=== PATIENT | male | born 1970 | race Caucasian/White ===

== ENCOUNTER 2020-06-24 12:58 | Outpatient (REF) | payer MEDICAID, SELFPAY | END 2020-06-24 12:59 | disposition home or self-care (01) | LOC: HO.HAP 12:58 | PROVIDERS: Visit Provider Internal Medicine | DX: Z76.89 Persons encountering health services in other specified circumstances (principal) ==

== ENCOUNTER 2020-12-04 22:44 | Emergency (ER) | payer MEDICAID, SELFPAY ==
--- NOTE | ~2020-12-04 | CT_ITS ---
EXAMINATION: CT HEAD WITHOUT CONTRAST CLINICAL INFORMATION: Fall. Intoxicated. COMPARISON: None TECHNIQUE: Contiguous axial imaging was performed from the skull base to vertex without intravenous administration of contrast. This CT examination was performed using dose optimization techniques as appropriate, variously including the following: *Automated exposure control *Adjustment of mA and/or kV according to patient size (this includes techniques or standardized protocols for targeted exams where dose is matched to indication/reason for exam; i.e. extremities or head) *Use of iterative reconstruction technique DLP: 754 mGy-cm FINDINGS: There is no evidence of acute intracranial hemorrhage or territorial infarction. No abnormal mass effect or midline shift is seen. Ku to white matter differentiation is well preserved. No extra-axial fluid collections are identified. The ventricles are normal in size. There is no abnormal attenuation within the brain parenchyma. The osseous structures and soft tissues are normal. The mastoid air cells and visualized portions of the paranasal sinuses are well aerated. CT/CT head/brain wo con IMPRESSION: No acute intracranial pathology.
--- NOTE | 2020-12-04 23:01 | ED_ITS ---
HPI - General Adult General Chief complaint: ETOH/Substance Use Stated complaint: ETOH Time Seen by Provider: 12/04/20 23:00 Source: patient and EMS Mode of arrival: EMS History of Present Illness HPI narrative: This is a 50-year-old male who is brought in by EMS after he was found unresponsive on the sidewalk but with minimal stimuli patient woke up and stood up will and ?smells like alcohol?. Patient states that he has had alcohol as well as heroin. Related Data Allergies Allergy/AdvReac Type Severity Reaction Status Date / Time No Known Allergies Allergy Unverified 06/10/20 15:11 [No Known Allergies*] Review of Systems Review of Systems: Pertinent positives and negatives as stated in HPI and 10 point review of systems is otherwise negative. PMFSH Past Medical History Source: nursing notes reviewed Social History Social History Advance Directives: No Advance Directives Information Provided: Yes Physical Exam Vital Signs: Vital Signs: Last Vital Signs Resp 14 12/05/20 04:00 BP 116/72 12/04/20 23:16 Body Mass Index 30.0 VITAL SIGNS: Reviewed. GENERAL: Well developed, well nourished, in no acute distress. HEAD: Normocephalic/small abrasion to mid forehead without overlying contusion EYES: PERRLA, EOMI OROPHARYNX: no oral lesions noted, posterior pharynx clear NECK: Supple, no adenopathy LUNGS: Normal breath sounds. No adventitious sounds or accessory muscle use. SpO2<> CARDIOVASCULAR: Regular rate and rhythm without noted murmurs ABDOMEN: Soft, non-tender, non-distended with bowel sounds. LEFT KNEE: Abrasion to left knee NEUROLOGIC: Alert and oriented x 4. Gait instability noted on clinical exam but otherwise nonfocal Course Course Course Narrative: This is a 50-year-old male with history and clinical presentation consistent with substance use that would include alcohol but no pinpoint noted on pupillary exam. Patient is clinically intoxicated and will obtain CT of the head given evidence of fall. On review of prior documentation at our facility patient has been seen for intoxication previously as well as SI in 2018. Of note, patient is not endorsing any suicidal or homicidal ideations at this time. On re-evaluation and review of all investigations there are no acute findings and patient is observed to have a steady gait and is ready for discharge. Medical Decision Making Lab Data Result diagrams: 12/05/20 00:07 12/05/20 00:07 Labs: Lab Results 12/05/20 12/05/20 12/05/20 Range/Units 00:07 00:07 00:07 WBC 9.2 (4.8-10.8) X10*3/uL RBC 4.48 L (4.60-5.80) X10*6/uL Hgb 14.8 (14.0-18.0) g/dl Hct 44.3 (42-52) % MCV 98.9 H (80-98) fL MCH 33.0 (27.0-33.0) pg MCHC 33.4 (31.0-36.0) g/dl RDW 14.2 (11.0-16.0) % Plt Count 251 (160-400) X10*3/uL MPV 8.7 L (9.4-12.4) fL Immature Gran % (Auto) 1.1 H (0.0-0.4) % Neut % (Auto) 79.1 H (45-73) % Lymph % (Auto) 14.4 L (20-40) % [place] % (Auto) 4.8 (2-11) % Eos % (Auto) 0.3 (0-4) % Baso % (Auto) 0.3 (0-2) % Lymph # (Auto) 1.3 (1.2-4.9) X10*3/uL [place] # (Auto) 0.4 (0.1-1.2) X10*3/uL Eos # (Auto) 0.0 (0.0-0.4) X10*3/uL Baso # (Auto) 0.0 (0.0-0.2) X10*3/uL Abs Immat Gran (auto) 0.10 H (0.00-0.03) X10*3/uL Absolute Neuts (auto) 7.2 (2.0-8.3) X10*3/uL Absolute Nucleated RBC 0.000 (0.0-0.012) X10*3/uL Nucleated RBC % (auto) 0.0 (0.0-0.2) /100WBC Sodium 140 (135-145) mmol/L Potassium 4.5 (3.3-5.1) mmol/L Chloride 105 (96-108) mmol/L Carbon Dioxide 27 (22-29) mmol/L Anion Gap 13 (12-20) BUN 10 (9-16) mg/dL Creatinine 0.88 (0.5-1.4) mg/dL Estim Creat Clear Calc 93.4 Estimated GFR > 60 Random Glucose 84 (60-115) mg/dL Calcium 8.6 (8.4-10.2) mg/dL Total Bilirubin 0.6 (0.0-1.0) mg/dL AST 19 (5-37) U/L ALT 19 (0-40) U/L Alkaline Phosphatase 71 (39-117) U/L Total Protein 7.6 (6.5-8.0) g/dL Albumin 4.3 (3.5-5.0) g/dL Urine Opiates Screen (Not Detect) Ur Barbiturates Screen (Not Detect) Ur Phencyclidine Scrn (Not Detect) Ur Amphetamines Screen (Not Detect) U Benzodiazepines Scrn (Not Detect) Urine Cocaine Screen (Not Detect) U Marijuana (THC) Screen (Not Detect) Ethyl Alcohol 71 mg/dL 12/05/20 Range/Units 00:07 WBC (4.8-10.8) X10*3/uL RBC (4.60-5.80) X10*6/uL Hgb (14.0-18.0) g/dl Hct (42-52) % MCV (80-98) fL MCH (27.0-33.0) pg MCHC (31.0-36.0) g/dl RDW (11.0-16.0) % Plt Count (160-400) X10*3/uL MPV (9.4-12.4) fL Immature Gran % (Auto) (0.0-0.4) % Neut % (Auto) (45-73) % Lymph % (Auto) (20-40) % [place] % (Auto) (2-11) % Eos % (Auto) (0-4) % Baso % (Auto) (0-2) % Lymph # (Auto) (1.2-4.9) X10*3/uL [place] # (Auto) (0.1-1.2) X10*3/uL Eos # (Auto) (0.0-0.4) X10*3/uL Baso # (Auto) (0.0-0.2) X10*3/uL Abs Immat Gran (auto) (0.00-0.03) X10*3/uL Absolute Neuts (auto) (2.0-8.3) X10*3/uL Absolute Nucleated RBC (0.0-0.012) X10*3/uL Nucleated RBC % (auto) (0.0-0.2) /100WBC Sodium (135-145) mmol/L Potassium (3.3-5.1) mmol/L Chloride (96-108) mmol/L Carbon Dioxide (22-29) mmol/L Anion Gap (12-20) BUN (9-16) mg/dL Creatinine (0.5-1.4) mg/dL Estim Creat Clear Calc Estimated GFR Random Glucose (60-115) mg/dL Calcium (8.4-10.2) mg/dL Total Bilirubin (0.0-1.0) mg/dL AST (5-37) U/L ALT (0-40) U/L Alkaline Phosphatase (39-117) U/L Total Protein (6.5-8.0) g/dL Albumin (3.5-5.0) g/dL Urine Opiates Screen Not Detected (Not Detect) Ur Barbiturates Screen Not Detected (Not Detect) Ur Phencyclidine Scrn Not Detected (Not Detect) Ur Amphetamines Screen Not Detected (Not Detect) U Benzodiazepines Scrn Not Detected (Not Detect) Urine Cocaine Screen POSITIVE H (Not Detect) U Marijuana (THC) Screen POSITIVE H (Not Detect) Ethyl Alcohol mg/dL Discharge Plan Discharge Clinical Impression: Substance use Alcoholic intoxication Qualifiers: Complication of substance-induced condition: uncomplicated Qualified Code(s): F10.920 - Alcohol use, unspecified with intoxication, uncomplicated Patient Disposition: Home, Self-Care Instructions: Alcohol Intoxication (ED), Polysubstance Abuse (ED) Additional Instructions: Do not hesitate to return to the emergency department for any acute worsening of your symptoms. Referrals: Physician,Unknown [Primary Care Provider] - 2 days
[2020-12-04 23:16] VITALS: BP 116/72; RESP 16
--- NOTE | 2020-12-04 23:55 | PC.NURSE ---
PT UNSTEADY ON FEET, WILL NOT STAY IN BED. PT INITIALLY COULDN'T REMEMBER HIS LAST NAME. PT CAME IN WITH NO ID, WALLET OR KEYS. PT REPORST HE HAS BEEN USING HEROIN AND COCAINE FOR PAST 2 DAYS. ALSO ADMITS TO ALCOHOL. PT HAS A SMALL ABRASION UPPER MID FOREHEAD. PT HAS NO MEMORY OF FALLING. EMS REPORTS THAT PAT WAS FOUND UNRESPONSIVE ON SIDEWALK, WOKE TO STERNAL RUB.
--- NOTE | 2020-12-05 00:09 | PC.NURSE ---
pt placed in recliner and moved next to room with sitter, directly in view of sitter. needing frequent redirection to stay in chair. unsteady on feet. believes he overdosed on Sunday in his appt and has been in the ED since Sunday.
[2020-12-05 00:15] LABS: MANUAL DIFF FLAG NO
[2020-12-05 00:16] LABS: Basophils Percent Auto 0.3 % (0-2); Eosinophils Percent Auto 0.3 % (0-4); Hematocrit 44.3 % (42-52); Hemoglobin 14.8 g/dl (14.0-18.0); Imm Gran Pct Auto 1.1 % (0.0-0.4); Lymphocytes Absolute Auto 1.3 X10*3/uL (1.2-4.9); Lymphocytes Percent Auto 14.4 % (20-40); Mean Corpuscular HGB Conc 33.4 g/dl (31.0-36.0); Mean Corpuscular Volume 98.9 fL (80-98); Mean Platelet Volume 8.7 fL (9.4-12.4); Monocytes Absolute Auto 0.4 X10*3/uL (0.1-1.2); Monocytes Percent Auto 4.8 % (2-11); Neutrophils Absolute Auto 7.2 X10*3/uL (2.0-8.3); Neutrophils Percent Auto 79.1 % (45-73); Platelet Count 251 X10*3/uL (160-400); Red Blood Count 4.48 X10*6/uL (4.60-5.80); Red Cell Distribution Width 14.2 % (11.0-16.0); White Blood Count 9.2 X10*3/uL (4.8-10.8)
[2020-12-05 00:43] LABS: Ethanol 71 mg/dL
[2020-12-05 00:46] LABS: Amphetamine Screen Urine Not Detected (Not Detect); Barbiturates, Urine Not Detected (Not Detect); Benzodiazepines Screen Urine Not Detected (Not Detect); Cannabinoid Screen Urine POSITIVE (Not Detect); Cocaine Screen Urine POSITIVE (Not Detect); Opiate Screen Urine Not Detected (Not Detect); Phencyclidine Screen Urine Not Detected (Not Detect)
[2020-12-05 00:47] LABS: Alanine Aminotransferase 19 U/L (0-40); Albumin Level 4.3 g/dL (3.5-5.0); Alkaline Phosphatase 71 U/L (39-117); Anion Gap 13 (12-20); Aspartate Amino Transferase 19 U/L (5-37); Bilirubin Total 0.6 mg/dL (0.0-1.0); Blood Urea Nitrogen 10 mg/dL (9-16); Calcium 8.6 mg/dL (8.4-10.2); Carbon Dioxide 27 mmol/L (22-29); Chloride 105 mmol/L (96-108); Creatinine Clr Calc Pharmacy 93.4; Estimated Glomerular Filt Rate > 60; Glucose Random 84 mg/dL (60-115); Potassium 4.5 mmol/L (3.3-5.1); Sodium 140 mmol/L (135-145); Total Protein 7.6 g/dL (6.5-8.0)
[2020-12-05 03:00] VITALS: RESP 16
[2020-12-05 04:00] VITALS: RESP 14
== END 2020-12-05 06:28 | disposition home or self-care (01) ==
PROVIDERS: Emergency Provider Student in an Organized Health Care Education/Training Program
DX: F10.129 Alcohol abuse with intoxication, unspecified (principal); F11.10 Opioid abuse, uncomplicated; Y90.3 Blood alcohol level of 60-79 mg/100 ml; Z71.41 Alcohol abuse counseling and surveillance of alcoholic
CPT/HCPCS: 36415; 70450; 80053; 80307; 80320; 85025; 99284

== ENCOUNTER 2020-12-15 16:49 | Emergency (ER) | payer MEDICAID, SELFPAY ==
[2020-12-15 17:03] VITALS: PULSE 86; RESP 18; TEMP 36.9; O2SAT 93; BMI 27.6
--- NOTE | 2020-12-15 17:30 | ED.GENADULT ---
HPI - General Adult General Chief complaint: Altered Mental Status Stated complaint: OVERDOSE Time Seen by Provider: 12/15/20 17:16 Source: patient Mode of arrival: EMS Limitations: no limitations History of Present Illness HPI narrative: Patient overdosed on heroine. States he shot up around 3:30. Patient was pulled over by police for being intoxicated. Onset (ago): hour(s) Severity: moderate Relieving factors: none Exacerbating factors: none Associated symptoms: denies other symptoms Related Data Allergies Allergy/AdvReac Type Severity Reaction Status Date / Time No Known Allergies Allergy Unverified 06/10/20 15:11 [No Known Allergies*] Review of Systems Constitutional: Constitutional: Reports no additional constitutional complaints Eyes: Eyes: Reports no additional eye complaints ENT: Denies dizziness Cardiovascular: Cardiovascular: Reports no additional cardiovascular complaints Respiratory: Respiratory: Reports as per HPI Gastrointestinal: Gastrointestinal: Reports no additional gastrointestinal complaints Musculoskeletal: Musculoskeletal: Reports no additional musculoskeletal complaints Integumentary/Breasts: Skin/Breast: Denies rash Neurologic: Reports system reviewed and no additional complaints, except as documented, Denies dizziness and Denies Sensory deficit (Neuro) Psychiatric: Psychiatric: Denies anxiety [facility] Past Medical History Medical History HTN (hypertension) Social History Social History Alcohol intake: unknown Smoking Status: Current every day smoker Use of substances other than those prescribed or required for medical reasons: Unknown Advance Directives: No Advance Directives Information Provided: Yes Physical Exam Vital Signs: Vital Signs: Last Vital Signs Temp 98.4 F 12/15/20 17:03 Pulse 86 12/15/20 17:03 Resp 18 12/15/20 17:03 Pulse Ox 93 12/15/20 17:03 Body Mass Index 27.6 Const: Other: Male looking older than stated than age, awake and alert Nutritional Appearance: average body habitus Orientation/consciousness: oriented to person and patient oriented x3 Limitations: no limitations HENMT: Head: Yes normal to inspection Ears: external ears normal General nose exam: Normal external nose present Mouth: Normal oral and palatal mucosa present and oropharynx normal Throat: Yes posterior oropharynx normal Eyes: General: appearance normal, both eyes and all related structures Neck: Other: supple Neck: Yes normal visual inspection Chest: Chest palpation & inspection: normal inspection of the chest Resp: Auscultation: clear to auscultation bilaterally Cardio: Jugular venous distension: no JVD Rate: regular rate Rhythm: regular rhythm Heart sounds: S1 normal heart sound present and S2 normal heart sound present GI: Inspection: Yes normal to inspection Palpation (GI): Soft to palpation, nontender and No hepatosplenomegaly present Auscultation: normal bowel sounds : General: Yes no CVA tenderness Back/Spine/Pelvis: Back: no CVA tenderness Skin: General skin exam: no rashes or lesions noted Neuro: General: oriented to person and patient oriented x3 Cranial nerves: Yes CN's II-XII intact bilaterally Motor exam (neuro): 5/5 motor strength present throughout Sensory Exam: No Sensory deficit (Neuro) Extrem: General: Yes normal to inspection Psych: Appearance: grossly normal Course Course Course Narrative: patient found a sober ride, looks good Medical Decision Making MDM Narrative Medical decision making narrative: Heroine intoxication, not requiring narcan Discharge Plan Discharge Clinical Impression: Heroin abuse Altered mental status Qualifiers: Altered mental status type: stupor Qualified Code(s): R40.1 - Stupor Patient Disposition: Home, Self-Care Instructions: Narcotic Use Disorder (ED) Additional Instructions: no driving Referrals: [facility] [Primary Care Provider] - 2 days
--- NOTE | 2020-12-15 18:10 | MHC.RECOVSUP ---
? Reason for consult Support o Current location: ED22[facility] o Identified substance use concern: Heroin - Support ? Intervention: o Community resources provided o Harm reduction discussion ? Plan: o Referral to [facility] o Patient to follow up with [facility] after discharge ? Additional information: Patient refused services But did that resources for [facility]. we also spoke about MAT and was given the information for the [facility] and [facility].
== END 2020-12-15 18:34 | disposition home or self-care (01) ==
PROVIDERS: Emergency Provider Emergency Medicine
DX: F11.120 Opioid abuse with intoxication, uncomplicated (principal); R40.1 Stupor; I10 Essential (primary) hypertension; F17.200 Nicotine dependence, unspecified, uncomplicated
CPT/HCPCS: 99283; 99284

== ENCOUNTER 2021-07-22 15:08 | Emergency (ER) | payer MEDICAID, SELFPAY ==
--- NOTE | ~2021-07-22 | XR_ITS ---
EXAMINATION: XR LUMBOSACRAL SPINE CLINICAL INFORMATION: Pain COMPARISON: None TECHNIQUE: Three views of the lumbosacral spine. FINDINGS: There is mild 2 mm anterior subluxation of L4 with respect L5. There is curvature of the lower thoracic and upper lumbar spine to the right. Bone alignment is otherwise normal. There is multilevel degenerative spondylosis. Disc spaces are normal. There is lower lumbar spine facet arthritis. XR/XR lumbar spine 2-3V IMPRESSION: Degenerative changes. No fracture seen.
[2021-07-22 15:21] VITALS: BP 120/70; BP 138/88; PULSE 70; PULSE 72; RESP 16; TEMP 37.2; O2SAT 96; O2SAT 97; BMI 26.6
--- NOTE | 2021-07-22 17:10 | ED.BACK ---
HPI - Back Pain/Injury General Chief Complaint: Back Pain/Injury Stated Complaint: lower back pain Time Seen by Provider: 07/22/21 16:15 History of Present Illness HPI Narrative: Patient complains of right-sided back pain radiating to the gluteal area and thigh, it may have happened from lifting at work, he went home 2 days ago with mild pain in his back and it has become more severe over the past several days and at home today he got a back spasm or he could not move and was brought here by ambulance, now the back spasm has improved he is able to move and walk and he denies any IV drug use, he has had no fevers he has had no changes to bowel or bladder he denies any weakness or numbness Related Data Home Medications Medication Instructions Recorded Confirmed buprenorphine 12 mg-naloxone 3 mg 1 strip SUBLINGUAL DAILY 07/28/21 07/28/21 sublingual film (Suboxone) prazosin 2 mg capsule 1 cap PO BID 07/28/21 07/28/21 trazodone 100 mg tablet 2 tab PO BEDTIME PRN 07/28/21 07/28/21 venlafaxine 150 mg 1 cap PO DAILY 07/28/21 07/28/21 capsule,extended release 24 hr venlafaxine 37.5 mg 1 cap PO DAILY 07/28/21 07/28/21 capsule,extended release 24 hr Previous Rx's Medication Instructions Recorded acetaminophen 500 mg tablet 1,000 mg PO QID PRN #30 tab 07/22/21 ibuprofen 600 mg tablet 600 mg PO Q6H PRN #20 tab 07/22/21 Allergies Allergy/AdvReac Type Severity Reaction Status Date / Time No Known Allergies Allergy Unverified 06/10/20 15:11 [No Known Allergies*] Review of Systems Review of Systems: Positive for right-sided back pain radiating to right leg Negatives are no fever no chills no dizziness no weakness no headache no neck pain no chest pain no abdominal pain no numbness weakness or tingling no changes to bowel or bladder no dysuria no incontinence Yes all other systems are reviewed and are negative PMFSH Past Medical History Source: nursing notes reviewed Medical History Anxiety Depression HTN (hypertension) Intravenous drug abuse in remission Social History Social History Household Members: Family Housing: House Alcohol intake: never Patient Tobacco Use Status: Current everyday Tobacco user Tobacco use type: Cigarette Substance Use Type: Marijuana service: No Current occupational status: unemployed Physical Exam Vital Signs: Vital Signs: Last Vital Signs Temp 99.0 F 07/22/21 15:21 Pulse 70 07/22/21 15:21 Resp 16 07/22/21 15:21 BP 120/70 07/22/21 15:21 Pulse Ox 97 07/22/21 15:21 Body Mass Index 26.6 General appearance no acute distress Head is normocephalic atraumatic Neck is supple Respiratory no distress Chest clear to auscultation bilateral Abdomen soft nontender Back had right-sided lower lumbar tenderness, skin was normal no rashes, no CVA tenderness no bony point tenderness Extremities full range of motion x4 Neuro no focal motor sensory deficits Course Course Course Narrative: Patient is treated for musculoskeletal back pain radiating to right leg and was discharged Discharge Plan Discharge Clinical Impression: Lumbar radiculopathy Patient Disposition: Home, Self-Care Additional Instructions: X-ray did not show any broken bone or acute abnormality Your pain is probably from a pinched nerve shooting pain down into leg We are trying prednisone which may reduce inflammation around the nerve, but if it increases anxiety you can stop taking it Follow with primary doctor Return any time for any worse condition or any concerns Prescriptions: New ibuprofen 600 mg tablet 600 mg PO Q6H PRN (Reason: pain) Qty: 20 RF: 0 acetaminophen 500 mg tablet 1,000 mg PO QID PRN (Reason: pain) Qty: 30 RF: 0 No Action venlafaxine 37.5 mg capsule,extended release 24hr 1 cap PO DAILY RF: 0 venlafaxine 150 mg capsule,extended release 24hr 1 cap PO DAILY RF: 0 trazodone 100 mg tablet 2 tab PO BEDTIME PRN (Reason: Insomnia) RF: 0 prazosin 2 mg capsule 1 cap PO BID RF: 0 buprenorphine-naloxone [Suboxone] 12-3 mg film 1 strip sublingual DAILY RF: 0 Stand Alone Forms: Work/School Release Interventions: ED Discharge Assessment Last Done: 07/22/21 18:29 Discharge Date/Time: 07/22/21 18:35
[2021-07-22] MEDS: predniSONE 20 MG TABLET 60 MG PO (17:28)
[2021-07-22] MEDS: Acetaminophen 325 MG TABLET 975 MG PO (17:28)
[2021-07-22] MEDS: Ketorolac Tromethamine 15 MG/ML VIAL 30 MG IM (17:29)
[2021-07-22] MEDS: Lidocaine 4 % Patch ADH..PATCH 1 PATCH TRANSDERMA (17:29)
== END 2021-07-22 18:35 | disposition home or self-care (01) ==
PROVIDERS: Emergency Provider Emergency Medicine
DX: M54.16 Radiculopathy, lumbar region (principal); I10 Essential (primary) hypertension
CPT/HCPCS: 72100; 96372; 99284; J1885

== ENCOUNTER 2021-07-26 09:07 | Emergency (ER) | payer MEDICAID, SELFPAY ==
--- NOTE | ~2021-07-26 | CT_ITS ---
EXAMINATION: CT THORACIC SPINE CLINICAL INFORMATION: Back pain. History of IV drug use. COMPARISON: None TECHNIQUE: Axial images through the thoracic spine with and without IV contrast. Sagittal and coronal sections on the technologist workstation were performed. This CT examination was performed using dose optimization techniques as appropriate, variously including the following: *Automated exposure control *Adjustment of mA and/or kV according to patient size (this includes techniques or standardized protocols for targeted exams where dose is matched to indication/reason for exam; i.e. extremities or head) *Use of iterative reconstruction technique DLP: 486 mGy-cm FINDINGS: Bone alignment is normal. No fracture, dislocation or x-ray evidence of osteomyelitis is seen. There is multilevel degenerative disc disease and degenerative spondylosis. There are probable Schmorl's nodes in the inferior endplate of the T6 and T9 vertebral body. No endplate erosive changes to suggest discitis seen. No paraspinal soft tissue changes suggest paraspinal abscess or phlegmon. No abnormality in the spinal canal is seen. There is degenerative spondylosis and degenerative disc disease at C6-C7 and C7-T1. The heart is enlarged. There is no pericardial effusion. There are no enlarged hilar or mediastinal nodes. The lungs are clear. There is no pleural effusion. The liver may be enlarged. CT/CT thoracic spine w con IMPRESSION: No evidence of discitis, osteomyelitis or paraspinal abscess/phlegmon. Multilevel degenerative spondylosis and degenerative disc disease of the thoracic spine.
--- NOTE | ~2021-07-26 | CT_ITS ---
EXAMINATION: CT LUMBAR SPINE CLINICAL INFORMATION: History of intravenous drug use with low back pain and elevated WBC. COMPARISON: No similar priors. TECHNIQUE: Multiple images of the lumbar spine following the intravenous administration of 65 mL of Omnipaque 350 were obtained. Axial, coronal and sagittal reformats were obtained. This CT examination was performed using dose optimization techniques as appropriate, variously including the following: *Automated exposure control *Adjustment of mA and/or kV according to patient size (this includes techniques or standardized protocols for targeted exams where dose is matched to indication/reason for exam; i.e. extremities or head) *Use of iterative reconstruction technique DLP: 388 mGy-cm FINDINGS: No evidence of acute compression deformities. There is subtle 2 to 3 mm of retrolisthesis of L2 on L3, which is likely degenerative in nature. Otherwise, anatomic alignment is maintained. There is multilevel lumbar spondylosis, more prominent at manifested by disc space narrowing, subchondral sclerosis/cystic changes, vacuum disc phenomena, prominent Schmorl's nodules and osteophytes. Endplate irregularities at T12-L1 and L2-L3 have associated vacuum disc phenomena and subchondral gas, which favors a degenerative nature from over infection. At L1-L2 there is also disc space irregularity which in the absence of surrounding inflammatory changes or edema also favored to represent degenerative changes. There is advanced facet arthropathy at L4-L5 and L5-S1, greater on the right side without discrete collections or free fluid surrounding them. There are no drainable collections or abscess formation. The CBD is mildly prominent measuring up to 8 mm of uncertain etiology. CT/CT lumbar spine w con IMPRESSION: No definite evidence of discitis or osteomyelitis. As above, some irregularity within a few endplates and facet joints are in favor to be degenerative in nature in the presence of vacuum disc phenomena and in the absence of paraspinal inflammatory changes. If concerning for infection persist, further evaluation with an MR of lumbar spine could be helpful. No drainable collections or abscess formation. Indeterminate dilatation of the CBD. If clinically indicated, consider further evaluation with MRCP.
[2021-07-26 09:16] VITALS: BP 160/100; BP 162/94; PULSE 70; RESP 16; TEMP 36.8; O2SAT 100; O2SAT 98; BMI 27.4
--- NOTE | 2021-07-26 09:41 | ED_ITS ---
HPI - Back Pain/Injury General Chief Complaint: Back Pain/Injury Stated Complaint: BACK PAIN,SEEN FOR SAME RECENTLY Time Seen by Provider: 07/26/21 09:24 Source: patient Mode of arrival: EMS Limitations: no limitations History of Present Illness HPI Narrative: 50-year-old male who presents emergency department for evaluation of severe mid to lower back pain. The patient states that approximately 1 week prior he developed back pain. 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 He was seen in the emergency department on 07/22/2021 (4 days prior) for 2 days right lower abdominal pain with the pain radiating to his right gluteal area and right thigh. At that time he was brought to the emergency department and was having back spasms. The patient had lumbar x-rays which revealed no acute finding. Patient was started on prednisone 40 mg once a day for 4 days, ibuprofen 600 mg every 6 hours as needed for pain, acetaminophen 1000 mg 4 times a day, cyclobenzaprine 5 mg 3 times a day and lidocaine 4% patches. Patient states that his pain is a sharp, constant pain that has been waxing and waning intensity. He states that his pain is currently 10/10. He is also complaining of severe spasm in his lower back. He states the pain radiates down his right leg to his right foot. He denies any numbness of the right leg but he states that his right leg does feel weak compared to his left. He denies loss of bowel or bladder control. He denied fever or chills. Patient does have a past medical history of heroin use but he states that he has not used injection drugs in several months. Related Data Previous Rx's Medication Instructions Recorded acetaminophen 500 mg tablet 1,000 mg PO QID PRN #30 tab 07/22/21 cyclobenzaprine 5 mg tablet 5 mg PO TID PRN #20 tab 07/22/21 ibuprofen 600 mg tablet 600 mg PO Q6H PRN #20 tab 07/22/21 lidocaine 4 % topical patch 1 patch TOPICAL DAILY PRN #10 ea 07/22/21 prednisone 20 mg tablet 60 mg PO DAILY 4 Days #12 tab 07/22/21 morphine 15 mg immediate release 15 mg PO Q4-6H PRN #10 tab 07/26/21 tablet Allergies Allergy/AdvReac Type Severity Reaction Status Date / Time No Known Allergies Allergy Unverified 06/10/20 15:11 [No Known Allergies*] Review of Systems Review of Systems: Yes all other systems are reviewed and are negative [facility] Past Medical History [facility] Narrative: Past medical history: Depression, insomnia, injection heroin use in remission. Social history: The patient does smoke cigarettes. He denies alcohol use. He states that he does smoke marijuana, he states that he has a history of injection heroin use but is in remission. Medical History Anxiety Depression HTN (hypertension) Intravenous drug abuse in remission Social History Social History Alcohol intake: unknown Advance Directives: No Advance Directives Information Provided: No Physical Exam Vital Signs: Vital Signs: Last Vital Signs Temp 99.1 F 07/26/21 12:36 Pulse 71 07/26/21 15:38 Resp 16 07/26/21 15:38 BP 150/93 H 07/26/21 15:38 Pulse Ox 97 07/26/21 15:38 Body Mass Index 27.4 Const: Other: Male patient who appears to be in significant distress secondary to his pain, the patient is diaphoretic, he seems to have episodes of severe spasm in his lower back, he answers all questions appropriately. HENMT: Head: Yes normal to inspection, Yes normocephalic and Yes atraumatic Ears: external ears normal General nose exam: Normal external nose present Face and sinus: Yes normal facial exam Mouth: Normal oral and palatal mucosa present Throat: Yes posterior oropharynx normal Eyes: General: appearance normal, both eyes and all related structures Pupils: Equal, round and reactive pupils present Neck: Neck: Yes normal visual inspection, Yes no lymphadenopathy, Yes trachea midline and Yes supple Chest: Chest palpation & inspection: normal inspection of the chest and normal palpation of entire chest wall Resp: Effort & Inspection: normal respiratory effort and able to speak in complete sentences Auscultation: clear to auscultation bilaterally Cardio: Rate: regular rate Rhythm: regular rhythm Heart sounds: S1 normal heart sound present, S2 normal heart sound present and no murmurs GI: Inspection: Yes normal to inspection Palpation (GI): Soft to palpation, nontender and no guarding Auscultation: normal bowel sounds Back/Spine/Pelvis: Other: The patient has localized tenderness over the right SI joint, he also has localized tenderness over the L3 through L5 lumbar vertebrae, he also has diffuse tenderness to palpation of his thoracic vertebrae. He paraspinal muscle spasm in the thoracic , lumbar and sacral area with the right side being greater than the left, he has negative straight leg raise sign bilaterally, he has normal strength in his lower extremities and they are symmetric, he has normal light touch bilaterally. Skin: General skin exam: no rashes or lesions noted Neuro: Cranial nerves: Yes CN's II-XII intact bilaterally and Yes Equal, round and reactive pupils present Cognition (Neuro): normal cognition Motor exam (neuro): 5/5 motor strength present throughout Extrem: General: Yes normal to inspection Psych: Appearance: grossly normal Speech and movement: Normal speech and movement present Affect: normal affect Attitude: cooperative Thought process: Normal thought process present Thought content: Normal thought content present Course Course Course Narrative: 50-year-old male who presents emergency department for evaluation of approximately 7 days of right lower back pain secondary to unknown injury. He was seen in the emergency department on 07/22/2021 (4 days prior to arrival) with similar pain. On today's presentation he appears to be in significant distress secondary to his pain and spasm with his lower back muscles. On exam he does have localized tenderness with palpation of the right SI joint and the lumbar vertebrae and the lumbar sacral paraspinal muscles with spasm of these muscles. Patient had negative straight leg raises bilaterally and has normal strength normal sensory exam. Patient does have a history of injection drug use but states that he is in remission. I did order CBC, CMP, CRP and sedimentation rate on the patient. Patient was ordered to get Toradol 30 mg IV and morphine 4 mg IV for his pain. 1147: The patient only got minimal pain relief with IV Toradol and morphine. Patient was ordered to get Dilaudid 1 mg IV. Patient's WBC count was elevated 14,000 and CRP was elevated at 18.1. ESR is pending. Given the patient's history of injection drug use, concerned that he may have a paraspinal abscess as the cause of his pain. I did order a CT scan of the thoracic and lumbar spine with IV contrast. 1529: The patient got very minimal relief with IV Toradol and morphine. Patient was given Dilaudid 1 mg IV x2 with improvement of his pain. CT scan of the thoracic spine did not reveal any diskitis or paraspinal abscess or paraspinal abscess inflammatory changes. Patient does have disc disease as well as degenerative arthritis which most likely explains the patient's pain. I did discuss this with the patient. Unfortunately, I made an order error and I did not order the CT scan of the lumbar spine. I did discuss this with the covering radiologist and the patient will get a CT scan of the lumbar spine with IV contrast as well. The patient is aware of this error and I did tell him that we will continue to treat his pain while he is in the emergency department. 1600: I did a [employer] search on the patient and the patient is actually getting Suboxone 8 mg/2 mg weekly. The patient did not inform me that he was in a Suboxone program. At this point, I am going to hold off giving any more narcotic pain medications to the patient and we will wait for the result of his CT scan of the lumbar sacral spine before determining further management. 1652: At the end of my shift, the CT scan of the patient's lumbar spine with IV contrast is pending. The patient's care was turned over to my colleague, Dr. Phillips will make a disposition on this patient. MDM - Back Pain/Injury Lab Data Attestation: I reviewed the patient's lab results. Result diagrams: 07/26/21 10:34 07/26/21 10:34 Labs: Lab Results 07/26/21 07/26/21 07/26/21 Range/Units 10:34 10:34 10:34 WBC 14.0 H (4.8-10.8) X10*3/uL RBC 4.27 L (4.60-5.80) X10*6/uL Hgb 13.8 L (14.0-18.0) g/dl Hct 39.2 L (42.0-52.0) % MCV 91.8 (80.0-98.0) fL MCH 32.3 (27.0-33.0) pg MCHC 35.2 (31.0-36.0) g/dl RDW 12.9 (11.0-16.0) % Plt Count 247 (160-400) X10*3/uL MPV 8.5 L (9.4-12.4) fL Immature Gran % (Auto) 0.4 (0.0-0.4) % Neut % (Auto) 84.4 H (45-73) % Lymph % (Auto) 6.9 L (20-40) % Camp % (Auto) 8.2 (2-11) % Eos % (Auto) 0.0 (0-4) % Baso % (Auto) 0.1 (0-2) % Lymph # (Auto) 1.0 L (1.2-4.9) X10*3/uL Camp # (Auto) 1.2 (0.1-1.2) X10*3/uL Eos # (Auto) 0.0 (0.0-0.4) X10*3/uL Baso # (Auto) 0.0 (0.0-0.2) X10*3/uL Abs Immat Gran (auto) 0.05 H (0.00-0.03) X10*3/uL Absolute Neuts (auto) 11.79 H (2.0-8.3) x10*3/uL Absolute Nucleated RBC 0.000 (0.0-0.012) X10*3/uL Nucleated RBC % (auto) 0.0 (0.0-0.2) /100WBC ESR 73 H (0-15) MM/HR Sodium 135 (135-145) mmol/L Potassium 3.7 (3.3-5.1) mmol/L Chloride 98 (96-108) mmol/L Carbon Dioxide 29 (22-29) mmol/L Anion Gap 12 (12-20) BUN 8 L (9-16) mg/dL Creatinine 0.62 (0.5-1.4) mg/dL Estim Creat Clear Calc 136.2 Estimated GFR > 60 Random Glucose 126 H D (60-115) mg/dL Calcium 8.9 (8.4-10.2) mg/dL Total Bilirubin 0.8 (0.0-1.0) mg/dL AST 14 (5-37) U/L ALT 18 (0-40) U/L Alkaline Phosphatase 75 (39-117) U/L C-Reactive Protein 18.10 H (< or = 0.50) mg/dL Total Protein 7.3 (6.5-8.0) g/dL Albumin 3.8 (3.5-5.0) g/dL Imaging Data CT scan thoracic spine: Radiologist's impression: FINDINGS: Bone alignment is normal. No fracture, dislocation or x-ray evidence of osteomyelitis is seen. There is multilevel degenerative disc disease and degenerative spondylosis. There are probable Schmorl's nodes in the inferior endplate of the T6 and T9 vertebral body. No endplate erosive changes to suggest discitis seen. No paraspinal soft tissue changes suggest paraspinal abscess or phlegmon. No abnormality in the spinal canal is seen. There is degenerative spondylosis and degenerative disc disease at C6-C7 and C7-T1. The heart is enlarged. There is no pericardial effusion. There are no enlarged hilar or mediastinal nodes. The lungs are clear. There is no pleural effusion. The liver may be enlarged. IMPRESSION: No evidence of discitis, osteomyelitis or paraspinal abscess/phlegmon. Multilevel degenerative spondylosis and degenerative disc disease of the thoracic spine. ? Dictated By: Cyndie Walker MD Discharge Plan Discharge Clinical Impression: Thoracic back sprain Qualifiers: Encounter type: subsequent encounter Qualified Code(s): S23.9XXD - Sprain of unspecified parts of thorax, subsequent encounter Strain of lumbar region Qualifiers: Encounter type: subsequent encounter Qualified Code(s): S39.012D - Strain of muscle, fascia and tendon of lower back, subsequent encounter Patient Disposition: Home, Self-Care Instructions: Acute Low Back Pain (ED) Additional Instructions: Back Pain Discharge Instructions: Take ibuprofen 200 mg pills, 3 pills every 6 hours as needed for pain. Take Tylenol (acetaminophen) 500 mg pills, 2 pills every 4-6 hours as needed for pain. Apply ice for 15 minutes to the area that hurts on your back, then apply a heating a pad on low for 15 minutes. Do this 4-6 times a day to help reduce the pain in your back. Continue with normal activities as tolerated since staying in bed and not moving around will make your pain worse. You can also try over the counter lidocaine patches as directed on the box to help with the pain. Please return to the Emergency Department or see your doctor immediately if your symptoms get worse or if you develop any new symptoms that are concerning you. Follow up with your doctor in 2 day. Please read the other printed discharge instructions on back pain. Prescriptions: New morphine 15 mg tablet 15 mg PO Q4-6H PRN (Reason: pain) Qty: 10 RF: 0 No Action prednisone 20 mg tablet 60 mg PO DAILY 4 Days Qty: 12 RF: 0 ibuprofen 600 mg tablet 600 mg PO Q6H PRN (Reason: pain) Qty: 20 RF: 0 acetaminophen 500 mg tablet 1,000 mg PO QID PRN (Reason: pain) Qty: 30 RF: 0 cyclobenzaprine 5 mg tablet 5 mg PO TID PRN (Reason: muscle spasm) Qty: 20 RF: 0 lidocaine 4 % adhesive patch,medicated 1 patch topical DAILY PRN (Reason: pain) Qty: 10 RF: 0
[2021-07-26 09:59] VITALS: RESP 16
[2021-07-26] MEDS: Morphine Sulfate 4 MG/ML CARTRIDGE IVPUSH (09:59)
[2021-07-26] MEDS: Ketorolac Tromethamine 15 MG/ML VIAL 30 MG IVPUSH (10:08)
[2021-07-26 10:40] LABS: MANUAL DIFF FLAG NO
[2021-07-26 10:41] VITALS: BP 148/94; PULSE 72; RESP 16; O2SAT 97
[2021-07-26 10:47] LABS: Basophils Percent Auto 0.1 % (0-2); Hematocrit 39.2 % (42.0-52.0); Hemoglobin 13.8 g/dl (14.0-18.0); Imm Gran Abs Auto 0.05 X10*3/uL (0.00-0.03); Imm Gran Pct Auto 0.4 % (0.0-0.4); Lymphocytes Percent Auto 6.9 % (20-40); Mean Corpuscular HGB Conc 35.2 g/dl (31.0-36.0); Mean Corpuscular Hemoglobin 32.3 pg (27.0-33.0); Mean Corpuscular Volume 91.8 fL (80.0-98.0); Mean Platelet Volume 8.5 fL (9.4-12.4); Monocytes Absolute Auto 1.2 X10*3/uL (0.1-1.2); Monocytes Percent Auto 8.2 % (2-11); Neutrophils Absolute Auto 11.79 x10*3/uL (2.0-8.3); Neutrophils Percent Auto 84.4 % (45-73); Platelet Count 247 X10*3/uL (160-400); Red Blood Count 4.27 X10*6/uL (4.60-5.80); Red Cell Distribution Width 12.9 % (11.0-16.0)
[2021-07-26 11:06] LABS: Alanine Aminotransferase 18 U/L (0-40); Albumin Level 3.8 g/dL (3.5-5.0); Alkaline Phosphatase 75 U/L (39-117); Anion Gap 12 (12-20); Aspartate Amino Transferase 14 U/L (5-37); Bilirubin Total 0.8 mg/dL (0.0-1.0); Blood Urea Nitrogen 8 mg/dL (9-16); Calcium 8.9 mg/dL (8.4-10.2); Carbon Dioxide 29 mmol/L (22-29); Chloride 98 mmol/L (96-108); Creatinine Clr Calc Pharmacy 136.2; Estimated Glomerular Filt Rate > 60; Glucose Random 126 mg/dL (60-115); Potassium 3.7 mmol/L (3.3-5.1); Sodium 135 mmol/L (135-145); Total Protein 7.3 g/dL (6.5-8.0)
[2021-07-26 11:57] VITALS: RESP 16
[2021-07-26] MEDS: HYDROmorphone HCl 1 MG/ML SYRINGE IVPUSH ×2 (11:57→14:36)
[2021-07-26] MEDS: 0.9 % Sodium Chloride 1,000 ML 999 ML IV ×2 (12:02→16:11)
[2021-07-26 12:12] LABS: Erythrocyte Sedimentation Rate 73 MM/HR (0-15)
[2021-07-26 12:36] VITALS: BP 156/78; PULSE 68; RESP 16; TEMP 37.3; O2SAT 98
[2021-07-26] MEDS: iohexoL 350 MG/ML 100 ML INFUS..BTL IV ×2 (13:38→16:07)
[2021-07-26 15:38] VITALS: BP 150/93; PULSE 71; RESP 16; O2SAT 97
--- NOTE | 2021-07-26 18:17 | PC.NURSE ---
PT REFUSED TO STAY MRI BECAUSE MOM CANT DRIVE AT NIGHT STATES HE WILL BE BACK IN AM FOR MRI. PT WILL LEAVE AMA.
[2021-07-26 18:38] LABS: Lactic Acid 1.2 mmol/L (0.5-2.0)
== END 2021-07-26 18:26 | disposition left against medical advice (07) ==
PROVIDERS: Emergency Medicine Emergency Medical Services; Emergency Provider Internal Medicine
DX: M54.50 Low back pain, unspecified (principal); M54.6 Pain in thoracic spine; Z79.899 Other long term (current) drug therapy
CPT/HCPCS: 36415; 72129; 72132; 80053; 83605; 85025; 85652; 86140; 96361; 96374; 96375; 96376; 99284; J1170; J1885; J2270; Q9967

== ENCOUNTER 2021-07-27 11:06 | Inpatient (IN) | payer MEDICAID, SELFPAY ==
[2021-07-27] VITALS (7 sets, daily range): BP systolic 128–157; BP diastolic 85–98; PULSE 70–97; RESP 15–20; TEMP 36.1–38; O2SAT 96–99; BMI 24.3
--- NOTE | ~2021-07-27 | CT_ITS ---
EXAMINATION: CT ABDOMEN AND PELVIS WITH CONTRAST CLINICAL INFORMATION: Abdominal pain. Epidural abscess. COMPARISON: No similar prior imaging available for comparison. Lumbar MRI dated 07/27/2021 and was reviewed. TECHNIQUE: Multidetector volumetric images were obtained from the superior aspect of the liver through the pubic symphysis following administration 85 mL of Omnipaque 350 intravenous contrast. Sagittal and coronal reformatted images were obtained on the technologist's workstation. This CT examination was performed using dose optimization techniques as appropriate, variously including the following: *Automated exposure control *Adjustment of mA and/or kV according to patient size (this includes techniques or standardized protocols for targeted exams where dose is matched to indication/reason for exam; i.e. extremities or head) *Use of iterative reconstruction technique DLP: 583 mGy-cm FINDINGS: Visualized lung bases are well aerated. Mild pericardial fluid. The liver demonstrates normal size, contour and attenuation. The gallbladder is normal in appearance. The pancreas, spleen and adrenal glands are unremarkable. Symmetrically enhancing kidneys. No hydronephrosis bilaterally. Normal caliber loops of small and large bowel. Mild colonic stool burden. Tiny fat-containing umbilical hernia. Normal caliber abdominal aorta. No retroperitoneal lymphadenopathy. The bladder is normal in appearance. The prostate gland is at the upper limits of normal in size. No gross free pelvic fluid. No inguinal lymphadenopathy. Moderate diffuse degenerative changes of the spine. An approximately 1.7 cm paraspinal fluid collection is again noted, posterior to the right L4/L5 facets (image 51/90, series 3). CT/CT abdomen pelvis w con IMPRESSION: 1. No CT evidence for acute abnormality within the abdomen or pelvis. 2. Small right posterior paraspinal fluid collection again demonstrated.
--- NOTE | ~2021-07-27 | MR_ITS ---
EXAMINATION: MR LUMBAR SPINE WITHOUT AND WITH CONTRAST CLINICAL INFORMATION: Epidural abscess. Bacteremia. Question change and abscess. COMPARISON: Lumbar spine MRI 07/27/2021. TECHNIQUE: MRI of the lumbar spine was obtained using routine sequences without and with intravenous contrast. A total of 7.5 mL Gadavist was intravenously administered. FINDINGS: The examination is difficult to interpret due to the severe motion artifact throughout all the acquired sequences. On the sagittal postcontrast images an epidural abscess is seen dorsally extending from the lower thoracic spinal canal to the sacrum. The superior most aspect of the collection is not included in the [id number]. There is mass effect and compression on the lower aspect of the spinal cord. There is significant mass effect on the thecal sac and cauda equina nerve roots. Findings are significantly progressed. No significant enhancement and edema involving the right-sided L4 and L5 pedicles. Suspected septic facet arthritis at L4-L5 and possibly L5-S1 with associated paraspinal fluid collections. Soft tissues are not well assessed. MR/MR lumbar spine wo/w con IMPRESSION: Severely limited motion degraded exam. Interval progression in the extensive abscess within the dorsal aspect of the epidural space extending from the lower portion of the thoracic canal down to the sacrum. The most superior aspect of the collection is not included in the [id number]. There is mass effect on the cord and the cauda equina nerve roots. Neurosurgical consultation recommended. This critical result was discussed with Dr Adners on 1:46 PM and it was ascertained that the content and urgency of the report was understood at the time of direct communication.
--- NOTE | ~2021-07-27 | MR_ITS ---
EXAMINATION: MR LUMBAR SPINE WITHOUT AND WITH CONTRAST CLINICAL INFORMATION: Back pain. History of IV drug abuse. Epidural abscess. COMPARISON: Lumbar spine CT from 07/26/2021. TECHNIQUE: MRI of the lumbar spine was obtained using routine sequences without and following the administration of 7.5 mL of Gadavist intravenous contrast. FINDINGS: Moderately motion degraded exam. Mild degenerative retrolistheses of L2 on L3 and L3 on L4. Mild degenerative grade 1 anterolisthesis of L4 on L5. There is advanced degenerative disc disease from T10-L5. Associated mixed Modic type discogenic endplate changes including Modic type I discogenic edema from T10-L3. There is moderate irregular marrow edema/enhancement associated with the right-sided posterior elements of L4 and L5 and to a lesser extent the posterior L4 vertebral body. There is also mild irregular marrow edema/enhancement associated with the right-sided L3-L4 and L5-S1 facets and the left-sided L4-L5 facets. Associated peripherally enhancing fluid collection in the right paraspinal soft tissues posterior to the L3-L4 and L4-L5 facets, measuring 1.7 x 1.4 x 4 cm. There is also a right dorsal epidural collection at the levels of L5 and S1, measuring 1.6 x 1 x 4 cm. Phlegmonous expansion of the dorsal epidural space from the level of L3-S2. No additional distinctly suspicious marrow edema or enhancement. Schmorl's nodes from T10-L2. Otherwise, the vertebral body heights are largely maintained. The conus medullaris terminates at the level of L1. The distal spinal cord is normal in appearance. No abnormal contrast enhancement. Moderate subcutaneous edema within the soft tissues of the back from L1-L5. No demonstrated prevertebral edema/collection. Limited evaluation of the intra-abdominal structures without significant abnormalities. The abdominal aorta is of normal contour and caliber. AXIAL SPINAL LEVELS: L1-L2: Mild diffuse disc bulge with superimposed shallow central disc protrusion. There is mild bilateral facet joint arthropathy. There is no neural foraminal stenosis. There is no spinal canal stenosis. L2-L3: Moderate diffuse disc bulge. There is moderate bilateral facet joint arthropathy. There is moderate bilateral neural foraminal stenosis. There is narrowing of the subarticular zones with no overt spinal canal stenosis centrally. L3-L4: Moderate diffuse disc bulge. There is moderate bilateral facet joint arthropathy. There is moderate right and mild left neural foraminal stenosis. Phlegmonous expansion of the epidural space. There is moderate spinal canal stenosis. L4-L5: Moderate diffuse disc bulge.. There is severe bilateral facet joint arthropathy with facet joint effusions. There is severe right and moderate left neural foraminal stenosis. Expansion of the epidural space with more discrete right dorsal collection. There is severe spinal canal stenosis. L5-S1: Mild diffuse disc bulge. There is severe left and moderate right facet joint arthropathy. There is mild bilateral neural foraminal stenosis. Expansion of the epidural space with a more discrete right dorsal collection. There is severe spinal canal stenosis. MR/MR lumbar spine wo/w con IMPRESSION: 1. Significant irregular edema/enhancement of the right-sided L4-L5 facets. Associated right dorsal epidural collection and right paraspinal collection. 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 To a lesser extent, there also appears to be mild edema/enhancement of the right-sided L3-L4 and L5-S1 facets, the left-sided L4-L5 facets, and the posterior L4 vertebral body. The epidural collection appears most well-formed in the right dorsal aspect of the canal extending from L5-S1. There is phlegmonous expansion of the dorsal epidural space to the level of L3. 2. 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 There is severe spinal canal stenosis at L4-L5 and L5-S1. There is moderate spinal canal stenosis at L3-L4. Moderate to severe neural foraminal stenoses from L2-L5.
--- NOTE | ~2021-07-27 | CT_ITS ---
EXAMINATION: CT HEAD WITHOUT CONTRAST CLINICAL INFORMATION: Encephalopathy COMPARISON: Head CT 12/04/2020 TECHNIQUE: Contiguous axial imaging was performed from the skull base to vertex without intravenous administration of contrast. This CT examination was performed using dose optimization techniques as appropriate, variously including the following: *Automated exposure control *Adjustment of mA and/or kV according to patient size (this includes techniques or standardized protocols for targeted exams where dose is matched to indication/reason for exam; i.e. extremities or head) *Use of iterative reconstruction technique DLP: 909 mGy-cm FINDINGS: There is no evidence of acute intracranial hemorrhage or territorial infarction. No abnormal mass effect or midline shift is seen. Ku to white matter differentiation is well preserved. No extra-axial fluid collections are identified. The ventricles are normal in size. There is no abnormal attenuation within the brain parenchyma. The osseous structures and soft tissues are normal. Minimal mucosal thickening of the right frontal sinus and a few ethmoid air cells. Other visualized paranasal sinuses and mastoid air cells are well aerated. CT/CT head/brain wo con IMPRESSION: No acute intracranial pathology.
--- NOTE | ~2021-07-27 | CT_ITS ---
PROCEDURE: CT-GUIDED ASPIRATION, FINE NEEDLE, WITH IMAGE GUIDANCE CLINICAL INFORMATION: Right paraspinal abscess collection. COMPARISON: MRI of 07/27/[address] scan of 07/26/2021. TECHNIQUE: CT fluoroscopic-guided right paraspinal muscle abscess drain. This CT examination was performed using dose optimization techniques as appropriate, variously including the following: *Automated exposure control *Adjustment of mA and/or kV according to patient size (this includes techniques or standardized protocols for targeted exams where dose is matched to indication/reason for exam; i.e. extremities or head) *Use of iterative reconstruction technique DLP: 226 mGy-cm FINDINGS: Informed consent was obtained from the patient prior to the procedure. During this process, the procedure and potential alternatives were explained, along with the intended outcome and benefits. The risks of the procedure, as well as the risk of not doing the procedure, were discussed. The patient was given the opportunity to ask questions regarding the procedure and appeared competent to make medical decisions. A signed consent form which documents this discussion was placed in the medical record. Using sterile technique and CT fluoroscopic guidance, a 5-Romanian Yueh needle was directed from a posterior approach into the right paraspinal soft tissue abnormality. Approximately 4 mL of purulent-appearing thick grayish yellow material was aspirated with samples sent for culture. CT/CT guided aspiration IMPRESSION: CT fluoroscopic-guided aspiration of right posterior paraspinal muscle abscess.
--- NOTE | 2021-07-27 13:02 | ED.BACK ---
HPI - Back Pain/Injury General Chief Complaint: Back Pain/Injury <Archie Marin MD - Last Filed: 07/27/21 15:24> Stated Complaint: back pain <Archie Marin MD - Last Filed: 07/27/21 15:24> Time Seen by Provider: 07/27/21 11:38 <Archie Marin MD - Last Filed: 07/27/21 15:24> Source: patient <Archie Marin MD - Last Filed: 07/27/21 15:24> Mode of arrival: ambulatory <Archie Marin MD - Last Filed: 07/27/21 15:24> Limitations: no limitations <Archie Marin MD - Last Filed: 07/27/21 15:24> History of Present Illness HPI Narrative: 50-year-old male present to the emergency department for evaluation of severe back pain. Patient was seen in in the ED for back pain for 4 days, patient was at work when he had to left some heavy object and the pain started shortly after. patient signed against medical advice yesterday and refused to get MRI of the back to rule out epidural abscess, patient come back today to get back MRI and pain control. <Archie Marin MD - Last Filed: 07/27/21 15:24> Related Data Home Medications: Previous Rx's Medication Instructions Recorded acetaminophen 500 mg tablet 1,000 mg PO QID PRN #30 tab 07/22/21 cyclobenzaprine 5 mg tablet 5 mg PO TID PRN #20 tab 07/22/21 ibuprofen 600 mg tablet 600 mg PO Q6H PRN #20 tab 07/22/21 lidocaine 4 % topical patch 1 patch TOPICAL DAILY PRN #10 ea 07/22/21 prednisone 20 mg tablet 60 mg PO DAILY 4 Days #12 tab 07/22/21 <Archie Marin MD - Last Filed: 07/27/21 15:24> Allergies/Adverse Reactions: Allergies Allergy/AdvReac Type Severity Reaction Status Date / Time No Known Allergies Allergy Unverified 06/10/20 15:11 [No Known Allergies*] <Archie Marin MD - Last Filed: 07/27/21 15:24> Review of Systems Review of Systems: All other systems are reviewed and are negative Constitutional: Reports as per HPI and Reports no additional constitutional complaints Eyes: Reports as per HPI and Reports no additional eye complaints Reports system reviewed and no additional complaints, except as documented Cardiovascular: Reports as per HPI and Reports no additional cardiovascular complaints Respiratory: Reports as per HPI and Reports no additional respiratory complaints Gastrointestinal: Reports as per HPI and Reports no additional gastrointestinal complaints Genitourinary: Reports no additional female genitourinary complaints Musculoskeletal: Reports no additional musculoskeletal complaints Skin/Breast: Reports system reviewed and no additional complaints, except as docu Psychiatric: Reports no additional psychiatric complaints Endocrine: Reports no additional endocrine complaints Hematologic/Lymphatic: Reports no additional hematologic/lymphatic complaints Allergic/Immunologic: Reports no additional allergic/immunologic complaints Reports system reviewed and no additional complaints, except as documented and Reports Abnormal speech present <Archie Marin MD - Last Filed: 07/27/21 15:24> FOR[facility]LY [facility] Past Medical History Medical History: Medical History Anxiety Depression HTN (hypertension) Intravenous drug abuse in remission <Archie Marin MD - Last Filed: 07/27/21 15:24> Social History Social History: Social History Alcohol intake: never Patient Tobacco Use Status: Current everyday Tobacco user Use of substances other than those prescribed or required for medical reasons: No Advance Directives: No <Archie Marin MD - Last Filed: 07/27/21 15:24> Physical Exam Vital Signs: Vital Signs: Last Vital Signs Temp 99 F 07/27/21 20:05 Pulse 74 07/27/21 20:05 Resp 18 07/27/21 20:05 BP 135/98 H 07/27/21 20:05 Pulse Ox 96 07/27/21 20:05 Body Mass Index 24.3 Vital signs have been reviewed as appeared to be correct. Blood pressure normal. Heart rate normal. Respiration rate normal. Temperature normal. Oxygen saturation normal. <Archie Marin MD - Last Filed: 07/27/21 15:24> Vital Signs: Last Vital Signs Temp 99 F 07/27/21 20:05 Pulse 74 07/27/21 20:05 Resp 18 07/27/21 20:05 BP 135/98 H 07/27/21 20:05 Pulse Ox 96 07/27/21 20:05 Body Mass Index 24.3 <Jordan Garcia MD - Last Filed: 07/27/21 20:33> Appearance: Alert. Oriented X3. Mild acute distress due to severe back pain. Head: Normal external exam. Normocephalic. Atraumatic. No Hernandez signs noted. No raccoon eyes noted Eyes: PERRLA. EOMI. Conjunctiva and sclera normal. Eyelids normal. ENT: TM's Normal. Pharynx normal. Uvula midline. Moist mucous membranes. No trismus noted. No drooling noted. No muffled voice noted. Neck: Normal inspection. Neck supple. FROM. No adenopathy. Thyroid Normal. No meningeal signs. No neck mass noted. CVS: Normal heart rate and rhythm. Heart sound normal. No murmurs noted. Pulses normal throughout. Respiratory: No respiratory distress. Painless inspiration. Breath sounds normal. No wheezes/rales/rhonchi noted. Chest nontender. No accessory muscle usage noted or decreased air movement noted. Abdomen: Soft and nontender. Bowel sounds normal in all 4 quadrants. No distention noted. No organomegaly noted. No visible injury noted. Back: No CVA tenderness. Paraspinous muscle spasm in the lumbar region. No step-off, no deformity. Skin: Skin warm and dry. Normal skin color. Normal skin turgor. No rashes/lesions/lacerations noted. Extremities: No lower extremity edema. Extremities exhibit normal range of motion. Extremities nontender. Neuro: Oriented X 3. Cranial nerve exam: II-XII are grossly intact No motor deficit. No sensory deficit. Reflexes normal. <Archie Marin MD - Last Filed: 07/27/21 15:24> Course Course Course Narrative: Assessment and plan. 50-year-old male came in for back pain, patient was seen and evaluated in the emergency room yesterday patient left AMA yesterday because he had to attend court this morning, patient returned today with severe pain, this patient had a history of IV drug abuse MRI was considered yesterday to rule out epidural abscess. case was singed out to Dr. Magana for further evaluation. <Archie Marin MD - Last Filed: 07/27/21 15:24> Reevaluation(s) Reevaluation #1: If patient with low back pain for last 10 days been to ER 2 times left against medical advice last night history of IVDA use patient denies recent use elevated sed rate CRP and WBC count in the blood done yesterday MRI done today which showed right dorsal epidural collection at the level of L4-L5 will start him on Rocephin and vancomycin will call [facility] for possible transfer at this time patient does not have significant neuro deficit feels pain going to the right leg more than the left no saddle anesthesia no bladder bowel involvement slight weakness in dorsiflexion of right foot <Jordan Garcia MD - Last Filed: 07/27/21 20:33> Time: 19:49 <Jordan Garcia MD - Last Filed: 07/27/21 20:33> MDM - Back Pain/Injury Lab Data Attestation: I reviewed the patient's lab results. <Jordan Gacria MD - Last Filed: 07/27/21 20:33> Labs: Lab Results 07/27/21 Range/Units 15:51 Urine Color DK YELLOW Urine Appearance CLEAR Urine pH 6.5 (5.0-8.0) Ur Specific [place] 1.025 (1.005-1.025) Urine Protein 2+ H (NEG-TRACE) MG/DL Urine Glucose (UA) NEG (NEG) MG/DL Urine Ketones 5 (NEG) MG/DL Urine Blood 3+ H (NEG) Urine Nitrite NEG (NEG) Ur Leukocyte Esterase NEG (NEG) Urine RBC 30-49 H (0) /HPF Urine WBC 0-2 (0-4) /HPF Ur Squamous Epith Cells TRACE /LPF Amorphous Sediment TRACE /LPF Urine Bacteria TRACE /LPF Urine Mucus 2+ /LPF <Archie Marin MD - Last Filed: 07/27/21 15:24> Lab Results 07/27/21 Range/Units 15:51 Urine Color DK YELLOW Urine Appearance CLEAR Urine pH 6.5 (5.0-8.0) Ur Specific [place] 1.025 (1.005-1.025) Urine Protein 2+ H (NEG-TRACE) MG/DL Urine Glucose (UA) NEG (NEG) MG/DL Urine Ketones 5 (NEG) MG/DL Urine Blood 3+ H (NEG) Urine Nitrite NEG (NEG) Ur Leukocyte Esterase NEG (NEG) Urine RBC 30-49 H (0) /HPF Urine WBC 0-2 (0-4) /HPF Ur Squamous Epith Cells TRACE /LPF Amorphous Sediment TRACE /LPF Urine Bacteria TRACE /LPF Urine Mucus 2+ /LPF <Jordan Garcia MD - Last Filed: 07/27/21 20:33> Imaging Data mri lumbar spine: Radiologist's impression: [address] [address] Magnetic Resonance Report Signed Patient: Adalberto Mari MR#: [id number] : 1970 Acct:[id number] Age/Sex: 50 / M ADM Date: 07/27/21 Loc: HO.ED Attending Dr: Ordering Physician: Archie Marin MD Date of Service: 07/27/21 Procedure(s): MR lumbar spine wo/w con Accession Number(s): [id number] cc: Archie Marin MD~ EXAMINATION: MR LUMBAR SPINE WITHOUT AND WITH CONTRAST CLINICAL INFORMATION: Back pain. History of IV drug abuse. Epidural abscess. COMPARISON: Lumbar spine CT from 07/26/2021. TECHNIQUE: MRI of the lumbar spine was obtained using routine sequences without and following the administration of 7.5 mL of Gadavist intravenous contrast. FINDINGS: Moderately motion degraded exam. Mild degenerative retrolistheses of L2 on L3 and L3 on L4. Mild degenerative grade 1 anterolisthesis of L4 on L5. There is advanced degenerative disc disease from T10-L5. Associated mixed Modic type discogenic endplate changes including Modic type I discogenic edema from T10-L3. There is moderate irregular marrow edema/enhancement associated with the right-sided posterior elements of L4 and L5 and to a lesser extent the posterior L4 vertebral body. There is also mild irregular marrow edema/enhancement associated with the right-sided L3-L4 and L5-S1 facets and the left-sided L4-L5 facets. Associated peripherally enhancing fluid collection in the right paraspinal soft tissues posterior to the L3-L4 and L4-L5 facets, measuring 1.7 x 1.4 x 4 cm. There is also a right dorsal epidural collection at the levels of L5 and S1, measuring 1.6 x 1 x 4 cm. Phlegmonous expansion of the dorsal epidural space from the level of L3-S2. No additional distinctly suspicious marrow edema or enhancement. Schmorl's nodes from T10-L2. Otherwise, the vertebral body heights are largely maintained. The conus medullaris terminates at the level of L1. The distal spinal cord is normal in appearance. No abnormal contrast enhancement. Moderate subcutaneous edema within the soft tissues of the back from L1-L5. No demonstrated prevertebral edema/collection. Limited evaluation of the intra-abdominal structures without significant abnormalities. The abdominal aorta is of normal contour and caliber. AXIAL SPINAL LEVELS: L1-L2: Mild diffuse disc bulge with superimposed shallow central disc protrusion. There is mild bilateral facet joint arthropathy. There is no neural foraminal stenosis. There is no spinal canal stenosis. L2-L3: Moderate diffuse disc bulge. There is moderate bilateral facet joint arthropathy. There is moderate bilateral neural foraminal stenosis. There is narrowing of the subarticular zones with no overt spinal canal stenosis centrally. L3-L4: Moderate diffuse disc bulge.? There is moderate bilateral facet joint arthropathy. There is moderate right and mild left neural foraminal stenosis. Phlegmonous expansion of the epidural space. There is moderate spinal canal stenosis. L4-L5: Moderate diffuse disc bulge..? There is severe bilateral facet joint arthropathy with facet joint effusions. There is severe right and moderate left neural foraminal stenosis. Expansion of the epidural space with more discrete right dorsal collection. There is severe spinal canal stenosis. L5-S1: Mild diffuse disc bulge. There is severe left and moderate right facet joint arthropathy. There is mild bilateral neural foraminal stenosis. Expansion of the epidural space with a more discrete right dorsal collection. There is severe spinal canal stenosis. MR/MR lumbar spine wo/w con IMPRESSION: 1. Significant irregular edema/enhancement of the right-sided L4-L5 facets. Associated right dorsal epidural collection and right paraspinal collection. 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 ? To a lesser extent, there also appears to be mild edema/enhancement of the right-sided L3-L4 and L5-S1 facets, the left-sided L4-L5 facets, and the posterior L4 vertebral body. ? The epidural collection appears most well-formed in the right dorsal aspect of the canal extending from L5-S1. There is phlegmonous expansion of the dorsal epidural space to the level of L3. ? ? 2. 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 There is severe spinal canal stenosis at L4-L5 and L5-S1. There is moderate spinal canal stenosis at L3-L4. Moderate to severe neural foraminal stenoses from L2-L5. Dictated By: MIKE MORAN DO Signed By: <Electronically signed by MIKE MORAN DO in OV> 07/27/21 1929 DD/ 1255 TD/TT:? Pelt Salter: DARÍO <Jordan Garcia MD - Last Filed: 07/27/21 20:33> Discharge Plan Discharge Clinical Impression: Abscess in epidural space of lumbar spine <Archie Marin MD - Last Filed: 07/27/21 15:24> Prescriptions: No Action prednisone 20 mg tablet 60 mg PO DAILY 4 Days Qty: 12 RF: 0 ibuprofen 600 mg tablet 600 mg PO Q6H PRN (Reason: pain) Qty: 20 RF: 0 acetaminophen 500 mg tablet 1,000 mg PO QID PRN (Reason: pain) Qty: 30 RF: 0 cyclobenzaprine 5 mg tablet 5 mg PO TID PRN (Reason: muscle spasm) Qty: 20 RF: 0 lidocaine 4 % adhesive patch,medicated 1 patch topical DAILY PRN (Reason: pain) Qty: 10 RF: 0 <Archie Marin MD - Last Filed: 07/27/21 15:24> Referrals: [facility] [Primary Care Provider] - 2 days <Archie Marin MD - Last Filed: 07/27/21 15:24>
[2021-07-27] MEDS: HYDROmorphone HCl 2 MG/ML VIAL IM (14:14)
[2021-07-27] MEDS: Ketorolac Tromethamine 15 MG/ML VIAL 30 MG IM (14:15)
[2021-07-27 16:04] LABS: Appearance Urine CLEAR; Color Urine DK YELLOW; Glucose Urine UA NEG (NEG); Leukocyte Esterase Urine NEG (NEG); Nitrite Urine NEG (NEG); PH 6.5 (5.0-8.0); Specific Gravity - Urine 1.025 (1.005-1.025); UACC Culture Trigger NO; Urine Blood 3+ (NEG); Urine Ketones 5 MG/DL (NEG); Urine Protein 2+ MG/DL (NEG-TRACE)
[2021-07-27 16:13] LABS: RBC Urine 30-49 /HPF (0); WBC Urine 0-2 /HPF (0-4)
[2021-07-27 16:14] LABS: Squamous Epithelial Cell Urine TRACE /LPF
[2021-07-27 16:15] LABS: Amorphous Sediment Urine TRACE /LPF; Bacteria Urine TRACE /LPF; Mucus Urine 2+ /LPF
[2021-07-27] MEDS: LORazepam 1 MG TABLET 2 MG PO (16:26)
[2021-07-27] MEDS: cefTRIAXone sodium 2 GM in 0.9 % Sodium Chloride 50 ML IV (19:43)
[2021-07-27 20:34] LABS: MANUAL DIFF FLAG NO
[2021-07-27 20:38] LABS: Basophils Percent Auto 0.1 % (0-2); Eosinophils Percent Auto 0.1 % (0-4); Hematocrit 40.6 % (42.0-52.0); Hemoglobin 13.5 g/dl (14.0-18.0); Imm Gran Abs Auto 0.07 X10*3/uL (0.00-0.03); Imm Gran Pct Auto 0.4 % (0.0-0.4); Lymphocytes Absolute Auto 1.7 X10*3/uL (1.2-4.9); Lymphocytes Percent Auto 9.3 % (20-40); Mean Corpuscular HGB Conc 33.3 g/dl (31.0-36.0); Mean Corpuscular Hemoglobin 31.7 pg (27.0-33.0); Mean Corpuscular Volume 95.3 fL (80.0-98.0); Mean Platelet Volume 8.2 fL (9.4-12.4); Monocytes Absolute Auto 1.3 X10*3/uL (0.1-1.2); Monocytes Percent Auto 7.4 % (2-11); Neutrophils Absolute Auto 14.63 x10*3/uL (2.0-8.3); Neutrophils Percent Auto 82.7 % (45-73); Platelet Count 252 X10*3/uL (160-400); Red Blood Count 4.26 X10*6/uL (4.60-5.80); Red Cell Distribution Width 13.2 % (11.0-16.0); White Blood Count 17.7 X10*3/uL (4.8-10.8)
[2021-07-27 20:53] LABS: Lactic Acid 0.8 mmol/L (0.5-2.0)
[2021-07-27 20:54] LABS: COVID-19 Test Negative (Negative)
[2021-07-27 20:54] LABS: Anion Gap 13 (12-20); Blood Urea Nitrogen 14 mg/dL (9-16); Calcium 9.1 mg/dL (8.4-10.2); Carbon Dioxide 32 mmol/L (22-29); Chloride 95 mmol/L (96-108); Creatinine Clr Calc Pharmacy 112.9; Estimated Glomerular Filt Rate > 60; Glucose Random 99 mg/dL (60-115); Potassium 3.6 mmol/L (3.3-5.1); Sodium 136 mmol/L (135-145)
[2021-07-27] MEDS: vancomycin HCL 1,500 MG in 0.9 % Sodium Chloride 500 ML 333.33 MG IV (21:31)
[2021-07-27] MEDS: HYDROmorphone HCl 2 MG/ML VIAL IVPUSH (22:43)
--- NOTE | 2021-07-27 22:45 | PC.NURSE ---
Patient given pain medication and spoken numerous times to keep his arm straight so that the antibiotic could infuse. Patient continues to bend his arm.
[2021-07-27] MEDS: LORazepam 2 MG/ML VIAL IVPUSH (23:09)
[2021-07-28] VITALS (7 sets, daily range): BP systolic 131–168; BP diastolic 91–104; PULSE 83–101; RESP 14–20; TEMP 37.2–37.3; O2SAT 94–96
[2021-07-28] MEDS: Piperacillin Sodium/Tazobactam 3.375 GM in 0.9 % Sodium Chloride 50 ML IV ×3 (02:17→19:02)
[2021-07-28] MEDS: Morphine Sulfate 4 MG/ML CARTRIDGE IVPUSH ×2 (02:17→07:15)
[2021-07-28] MEDS: traZODone HCL 100 MG TABLET 200 MG PO ×2 (02:18→21:31)
[2021-07-28] MEDS: ondansetron HCL 4 MG/2 ML VIAL IVPUSH (02:18)
--- NOTE | 2021-07-28 02:20 | PC.NURSE ---
Patient in tremendous pain and is very restless. Patient given pain medication and antibiotic per emar. Patient has sitter with him because he is very restless.
--- NOTE | 2021-07-28 06:27 | P.HPHOSP_ITS ---
History of Present Illness Date of Service: 07/28/21 Chief Complaint: Back pain 50-year-old male with past medical history of hypertension, IV drug abuser, depression anxiety who presents to the hospital with complaints of back pain. Patient reports pain started about 4 days ago, localized to the middle back, no nradiating, constant, 8/10, no fever no chills, he has some tingling in his toes but no numbness weakness in arms or legs. Denies any chest pain, no headache, no change in vision, no abdominal pain nausea or vomiting, no diarrhea constipation, no urinary symptoms and no lower extremity edema. On arrival to the ED patient hemodynamically Stable with a temperature of a 100.4?, otherwise vitals unremarkable Labs are significant for WBC count of 17.4, hemoglobin of 13.5, hematocrit 40.6, UA that is positive for blood and RBC otherwise labs unremarkable Lumbar spine MRI shows significant irregular edema/enhancement of the right- sided L4-L5 Juan, associated right dorsal epidural collection and right paraspinal collection. Findings are consistent with lumbar facet joint septic arthritis and abscess formation. Case was discussed with Neurosurgery at [facility] Dr.Richard Last? who reviewed the MRI imaging, advise no neurosurgical intervention at this time, continue IV antibiotics and will only need surgical intervention if develops significant neurological deficits Patient started on IV antibiotics and will be admitted further manage Review of Systems Review of Systems: Yes all other systems are reviewed and are negative [facility] Medical History Anxiety Depression HTN (hypertension) Intravenous drug abuse in remission Pertinent family history: No pertinent history Social History Alcohol intake: never Patient Tobacco Use Status: Current everyday Tobacco user Use of substances other than those prescribed or required for medical reasons: No Advance Directives: No Meds Allergies Allergy/AdvReac Type Severity Reaction Status Date / Time No Known Allergies Allergy Unverified 06/10/20 15:11 [No Known Allergies*] Active Medications: Current Medications Acetaminophen (Acetaminophen 325 Mg Tablet) 650 mg PO Q6H PRN PRN Reason: Pain, Mild (Pain Scale 1-3) Buprenorphine/Naloxone (Buprenorphine/Naloxone 12/3 Mg Film) 1 film SUBLINGUAL DAILY FERCHO Docusate Sodium (Docusate Sodium 100 Mg Capsule) 100 mg PO DAILY PRN PRN Reason: Constipation Vancomycin HCl 1,250 mg/ (Sodium Chloride) 250 mls @ 166.667 mls/hr IV Q12H [facility] Piperacillin Sod/Tazobactam (Sod 3.375 gm/ Sodium Chloride) 50 mls @ 100 mls/hr IV Q6H [facility] Morphine Sulfate (Morphine Sulfate 4 Mg/Ml Cartridge) 4 mg IVPUSH Q4H PRN; Protocol PRN Reason: Pain, Severe (Pain Scale 7-10) Last Admin: 07/28/21 02:17 Dose: 4 mg Documented by: Ondansetron HCl (Ondansetron Hcl 4 Mg/2 Ml Vial) 4 mg IVPUSH Q8H PRN PRN Reason: Nausea and Vomiting Last Admin: 07/28/21 02:18 Dose: 4 mg Documented by: Pharmacy Consult (Consult Rx Vancomycin Dosing) 1 each MISCELLANE DAILY PRN PRN Reason: Consult order Pharmacy Consult (Consult Rx Vancomycin Dosing) 1 each MISCELLANE DAILY PRN PRN Reason: Consult order Prazosin HCl (Prazosin Hcl 1 Mg Capsule) 2 mg PO BID [facility]; Protocol Sodium Chloride (0.9 % Sodium Chloride Flush 3 Ml Syringe) 3 ml IVFLUSH QSHIFT [facility] Trazodone HCl (Trazodone Hcl 100 Mg Tablet) 200 mg PO BEDTIME PRN PRN Reason: Insomnia Last Admin: 07/28/21 02:18 Dose: 200 mg Documented by: Venlafaxine HCl (Venlafaxine Hcl Er 37.5 Mg Cap.Er.24h) 37.5 mg PO DAILY [facility] Venlafaxine HCl (Venlafaxine Hcl Er 150 Mg Cap.Er.24h) 150 mg PO DAILY [facility] Home Medications Medication Instructions Recorded Confirmed Last Taken Type buprenorphine 12 mg-naloxone 3 mg 1 strip SUBLINGUAL DAILY 07/28/21 07/28/21 Unknown History sublingual film (Suboxone) prazosin 2 mg capsule 1 cap PO BID 07/28/21 07/28/21 Unknown History trazodone 100 mg tablet 2 tab PO BEDTIME PRN 07/28/21 07/28/21 Unknown History venlafaxine 150 mg 1 cap PO DAILY 07/28/21 07/28/21 Unknown History capsule,extended release 24 hr venlafaxine 37.5 mg 1 cap PO DAILY 07/28/21 07/28/21 Unknown History capsule,extended release 24 hr Physical Exam Vital Signs and Narrative: Vital Signs: Last Vital Signs Temp 98.9 F 07/28/21 05:21 Pulse 83 07/28/21 05:21 Resp 14 07/28/21 05:21 BP 168/91 H 07/28/21 05:21 Pulse Ox 96 07/28/21 05:21 Body Mass Index 24.3 Const: Other: Patient lethargic(sleepy) but arousable and answers questions appropriately General: cooperative and no acute distress Orientation/consciousness: patient oriented x3 Eyes: General: appearance normal, both eyes and all related structures Resp: Effort & Inspection: normal respiratory effort Auscultation: clear to auscultation bilaterally Cardio: Rate: regular rate Rhythm: regular rhythm GI: Palpation (GI): Soft to palpation Auscultation: normal bowel sounds Skin: General skin exam: no rashes or lesions noted Neuro: Other: Strength 5/5 in all extremities, no loss of sensation General: patient oriented x3 Cognition (Neuro): normal cognition Extrem: General: Yes normal to inspection and Yes no pedal edema Results Labs CBC and Chem 7: 07/27/21 20:26 07/27/21 20:26 Labs: Laboratory Results - last 24 hr 07/27/21 07/27/21 07/27/21 15:51 20:13 20:25 MCV MCH MCHC RDW Plt Count MPV Immature Gran % (Auto) Neut % (Auto) Lymph % (Auto) [place] % (Auto) Eos % (Auto) Baso % (Auto) Lymph # (Auto) [place] # (Auto) Eos # (Auto) Baso # (Auto) Abs Immat Gran (auto) Absolute Neuts (auto) Absolute Nucleated RBC Nucleated RBC % (auto) Anion Gap Estim Creat Clear Calc Estimated GFR Random Glucose Lactic Acid 0.8 Calcium Urine Color DK YELLOW Urine Appearance CLEAR Urine pH 6.5 Ur Specific [place] 1.025 Urine Protein 2+ H Urine Glucose (UA) NEG Urine Ketones 5 Urine Blood 3+ H Urine Nitrite NEG Ur Leukocyte Esterase NEG Urine RBC 30-49 H Urine WBC 0-2 Ur Squamous Epith Cells TRACE Amorphous Sediment TRACE Urine Bacteria TRACE Urine Mucus 2+ COVID-19 (VICKY) Negative COVID-19 Clin Com See Note 07/27/21 07/27/21 20:26 20:26 MCV 95.3 MCH 31.7 MCHC 33.3 RDW 13.2 Plt Count 252 MPV 8.2 L Immature Gran % (Auto) 0.4 Neut % (Auto) 82.7 H Lymph % (Auto) 9.3 L [place] % (Auto) 7.4 Eos % (Auto) 0.1 Baso % (Auto) 0.1 Lymph # (Auto) 1.7 [place] # (Auto) 1.3 H Eos # (Auto) 0.0 Baso # (Auto) 0.0 Abs Immat Gran (auto) 0.07 H Absolute Neuts (auto) 14.63 H Absolute Nucleated RBC 0.000 Nucleated RBC % (auto) 0.0 Anion Gap 13 Estim Creat Clear Calc 112.9 Estimated GFR > 60 Random Glucose 99 Lactic Acid Calcium 9.1 Urine Color Urine Appearance Urine pH Ur Specific [place] Urine Protein Urine Glucose (UA) Urine Ketones Urine Blood Urine Nitrite Ur Leukocyte Esterase Urine RBC Urine WBC Ur Squamous Epith Cells Amorphous Sediment Urine Bacteria Urine Mucus COVID-19 (VICKY) COVID-19 Clin Com Imaging Radiologist's Impressions: Impressions Lumbar Spine MRI 07/27/21 12:55 IMPRESSION: 1. Significant irregular edema/enhancement of the right-sided L4-L5 facets. Associated right dorsal epidural collection and right paraspinal collection. 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 To a lesser extent, there also appears to be mild edema/enhancement of the right-sided L3-L4 and L5-S1 facets, the left-sided L4-L5 facets, and the posterior L4 vertebral body. The epidural collection appears most well-formed in the right dorsal aspect of the canal extending from L5-S1. There is phlegmonous expansion of the dorsal epidural space to the level of L3. 2. 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 There is severe spinal canal stenosis at L4-L5 and L5-S1. There is moderate spinal canal stenosis at L3-L4. Moderate to severe neural foraminal stenoses from L2-L5. Assessment and Plan (1) Abscess in epidural space of lumbar spine: Status: Acute 50-year-old male with past medical history of hypertension as well as IV drug use presents to the hospital with complaints of back pain found to have epidural abscess # epidural abscess - most like secondary to IV drug - no neurological deficits at this time - will start him on IV antibiotic - consult infectious disease - neurology consult - case was discussed with Neurosurgery at [facility] and stated the patient does not need any neuro surgical intervention at this time unless develops significant neurological deficit which patient does not have at this time - follow culture # hypertension - stable - continue prazosin # depression anxiety - continue home medication # IV drug use - continue Suboxone DVT prophylaxis: SCDs given the epidural abscess and potential need for surgical intervention Quality Stroke Does the patient have a stroke diagnosis?: No VTE Prior VTE?: No VTE Risk Level:: Medical - moderate - high VTE Device Contraindication: N/A - Device Ordered VTE Drug Contraindication: Treatment Not Indicated
--- NOTE | 2021-07-28 07:05 | PC.NURSE ---
assumed care of pt. pt in and out of moaning, speaking sentences that do not make sense, and saying he's in pain. pt had sitter overnight d/t getting out of bed, pulling out IV, making a mess of room. pt denies detoxing from any drugs. will continue to monitor.
[2021-07-28 07:13] LABS: Basophils Percent Auto 0.1 % (0-2); Hematocrit 39.5 % (42.0-52.0); Hemoglobin 13.5 g/dl (14.0-18.0); Imm Gran Abs Auto 0.09 X10*3/uL (0.00-0.03); Imm Gran Pct Auto 0.5 % (0.0-0.4); Lymphocytes Absolute Auto 1.1 X10*3/uL (1.2-4.9); Lymphocytes Percent Auto 5.5 % (20-40); MANUAL DIFF FLAG SCAN; Mean Corpuscular HGB Conc 34.2 g/dl (31.0-36.0); Mean Corpuscular Hemoglobin 32.2 pg (27.0-33.0); Mean Corpuscular Volume 94.3 fL (80.0-98.0); Mean Platelet Volume 8.4 fL (9.4-12.4); Monocytes Absolute Auto 1.6 X10*3/uL (0.1-1.2); Monocytes Percent Auto 8.2 % (2-11); Neutrophils Absolute Auto 16.33 x10*3/uL (2.0-8.3); Neutrophils Percent Auto 85.7 % (45-73); Platelet Count 205 X10*3/uL (160-400); Red Blood Count 4.19 X10*6/uL (4.60-5.80); SCAN SMEAR FLAG 1; White Blood Count 19.1 X10*3/uL (4.8-10.8)
[2021-07-28 07:31] LABS: SLIDE REVIEW VERIFIED
--- NOTE | 2021-07-28 07:38 | PHA.PROG ---
Admission Date/Time: July 28, 2021 01:04 Indication: ABSCESS Weight in k.575 kg Adjusted body weight in K.6 KG [place] body weight in K.9 KG Obesity Dosing Indication % IBW: Serum Creatinine - Last 168 Hours 07/27/21 20:26 Creatinine 0.74 Estimated CrCl and GFR - Last 168 Hours 07/27/21 20:26 Estim Creat Clear Calc 112.9 Estimated GFR > 60 Vancomycin Loading Dose: 1500 MG X 1 IN ED Current Vancomycin Dosing Regimen: 1000 MG Q12H Vancomycin Monitoring using AUC goal of 400 - 600 range with trough as surrogate marker: PREDICTED AUC OF468 , PREDICTED TROUGH 13.8 Date and Time for next Vancomycin Level to be drawn: 07/29/21 @0800 Pharmacist Comments on Vancomycin Plan: Vancomycin dosing will take advantage of [employer] as a clinical decision support tool that uses Bayesian modeling to calculate individual patient's pharmacokinetic parameters and forecast the patient's drug concentration time course with the target goal AUC 24 range of 400 - 600 mg/L/hr.
[2021-07-28 08:04] LABS: Anion Gap 16 (12-20); Blood Urea Nitrogen 11 mg/dL (9-16); Calcium 8.3 mg/dL (8.4-10.2); Carbon Dioxide 26 mmol/L (22-29); Chloride 96 mmol/L (96-108); Creatinine Clr Calc Pharmacy 134.8; Estimated Glomerular Filt Rate > 60; Glucose Random 98 mg/dL (60-115); Potassium 3.8 mmol/L (3.3-5.1); Sodium 134 mmol/L (135-145)
[2021-07-28] MEDS: Venlafaxine HCl ER 37.5 MG CAP.ER.24H PO (08:52)
[2021-07-28] MEDS: Venlafaxine HCl ER 150 MG CAP.ER.24H PO (08:52)
[2021-07-28] MEDS: Prazosin HCL 1 MG CAPSULE 2 MG PO ×2 (08:52→21:45)
[2021-07-28] MEDS: Buprenorphine/Naloxone 12/3 mg FILM 1 FILM SUBLINGUAL (08:52)
[2021-07-28] MEDS: vancomycin HCL 1,000 MG in 0.9 % Sodium Chloride 250 ML 270 MG IV ×2 (08:52→21:28)
[2021-07-28] MEDS: 0.9 % Sodium Chloride Flush 3 ML SYRINGE IVFLUSH (09:21)
[2021-07-28 09:34] LABS: Amphetamine Screen Urine Not Detected (Not Detect); Barbiturates, Urine Not Detected (Not Detect); Benzodiazepines Screen Urine Not Detected (Not Detect); Cannabinoid Screen Urine POSITIVE (Not Detect); Cocaine Screen Urine Not Detected (Not Detect); Fentanyl, urine POSITIVE (Not Detect); Opiate Screen Urine POSITIVE (Not Detect); Phencyclidine Screen Urine Not Detected (Not Detect)
[2021-07-28 09:45] LABS: INTERNATIONAL NORM RATIO 1.3 (0.9-1.1)
[2021-07-28] MEDS: HYDROmorphone HCl 1 MG/ML SYRINGE IVPUSH ×2 (10:15→16:03)
--- NOTE | 2021-07-28 10:15 | P.EN_ITS ---
Documented by User: TATI Loving 07/28/21 10:35 Event Note Date of Service: 07/28/21 Event Note: Seen and examined this morning follow up for epidural abscess complaining of low back pain seems somewhat disoriented. PE: General. Appears uncomfortable, awake and alert HEENT: PERRL, EOMI Cardiovascular. Heart regular no murmurs Pulmonary. Lungs clear to auscultation bilaterally GI. Abdomen soft, nontender, nondistended Neuro: no focal deficits noted. A/P: his is a 50-year-old male with past medical history of hypertension as well as IV drug use presents to the hospital with complaints of back pain found to have epidural abscess epidural abscess MRI lunbar spine showing: Significant irregular edema/enhancement of the right- sided L4-L5 facets. Associated right dorsal epidural collection and right paraspinal collection. 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 mild edema/enhancement of the right-sided L3-L4 and L5-S1 facets, the left-sided L4-L5 facets, and the posterior L4 vertebral body discussed with Neurosurgery at [facility] and stated the patient does not need any neuro surgical intervention at this time unless develops significant neurological deficit no neurological deficits at this time - continue IV vancomycin and zosyn - Will order IR guided drainage of abscess - ID consult pending - neurology consult pending - follow blood cultures - WBC trending up, follow CBC - follow renal function while receiving vancomycin hypertension - continue prazosin - monitor blood pressure closely depression anxiety - continue Effexor polysubstance abuse denies active drug use tox screen + for fentanyl, marijuana - continue Suboxone - addiction med consult dvt ppx - mechanical devices code status - full code attending: dr. yusuf Documented by User: Jasen Yusuf MD 07/28/21 14:15 Event Note Date of Service: 07/28/21 Event Note: Seen and examined this morning follow up for epidural abscess complaining of low back pain seems somewhat disoriented. PE: General. Appears uncomfortable, awake and alert HEENT: PERRL, EOMI Cardiovascular. Heart regular no murmurs Pulmonary. Lungs clear to auscultation bilaterally GI. Abdomen soft, nontender, nondistended Neuro: no focal deficits noted. A/P: his is a 50-year-old male with past medical history of hypertension as well as IV drug use presents to the hospital with complaints of back pain found to have epidural abscess epidural abscess MRI lunbar spine showing: Significant irregular edema/enhancement of the right- sided L4-L5 facets. Associated right dorsal epidural collection and right abby lv collection. 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 mild edema/enhancement of the right-sided L3-L4 and L5-S1 facets, the left-sided L4-L5 facets, and the posterior L4 vertebral body discussed with Neurosurgery at [facility] and stated the patient does not need any neuro surgical intervention at this time unless develops significant neurological deficit no neurological deficits at this time - continue IV vancomycin and zosyn - Will order IR guided drainage of abscess - ID consult pending - neurology consult pending - follow blood cultures - WBC trending up, follow CBC - follow renal function while receiving vancomycin hypertension - continue prazosin - monitor blood pressure closely depression anxiety - continue Effexor polysubstance abuse denies active drug use tox screen + for fentanyl, marijuana - continue Suboxone - addiction med consult dvt ppx - mechanical devices code status - full code attending: dr. yusuf I?saw and examined the patient and participated in the [place] portion of the E/M service and discussed with PA.? I agree with above findings, assessment and plan, except if otherwise stated. on my exam: patient denies urianry or stool incontinence, he has normal strenght in both legs, able to lift both legs against gravity, he was alert and orienged to self, place and time. Case has been previously discussed with [facility] Neurosurg with no need for intervention, getting IR guided draianage and culture. high suspicious for staph, proably MRSA.. continue frequent neuro checks, at any sings of neuro changes, will discuss with neuro surg again
--- NOTE | 2021-07-28 10:38 | MHC.RECOVRN ---
Briefly met with pt after consult placed to Addiction Medicine. Pt unable to stay still due to pain, continuously moving/adjusting/standing. Pt currently taking 12/3 mg Suboxone daily, reports this is beneficial for maintaining recovery. Pt reports last opiate use months ago. Unable to conduct thorough interview due to pts discomfort. Will follow up later. Discussed case, including need for increased pain medication, with Jazmyne Gale APRN as well as pts RN.
--- NOTE | 2021-07-28 11:38 | PC.NURSE ---
pt still constantly restless in stretcher, moaning in pain. Multiple pain medications given, each with almost no relief. and Rita LOPEZ aware.
--- NOTE | 2021-07-28 12:02 | MHC.CM.PN ---
Attempted to meet with patient in regards to discharge planning. Patient is restless in bed. Will attempt to meet again. Continue to monitor for d/c needs.
--- NOTE | 2021-07-28 12:13 | PC.NURSE ---
Chyna, pt's mom called and updated. New number . Pt's mom would like to be updated when room assignment changes.
[2021-07-28] MEDS: oxyCODONE HCl Immed Release 5 MG TABLET PO (12:59)
--- NOTE | 2021-07-28 13:12 | PC.NURSE ---
pt down to IR at this time.
[2021-07-28] MEDS: Lidocaine HCl 1 % MPF 5 ML VIAL 10 ML SUBCUT (15:19)
--- NOTE | 2021-07-28 16:09 | PC.NURSE ---
Pt writing and moaning in pain. Given PRN Dilaudid. Primary RN awar. VSS at this time.
--- NOTE | 2021-07-28 16:30 | MHC.RECOVRN ---
Met with pt to f/u after IR procedure. Pt writhing in bed upon t/w approach. Pt reports pain is worse, tingling sensation in left side groin, described as zapping. Pt began mumbling, when asked to clarify pt states The birthday alliance party. Yesterday. No, the day before. When t/w inquired about the alliance party, pt states Oh, I forgot who I was talking to. At times, pt appears to gesture to something in the room, pt unable to specify. Pt constantly moving around, moaning in pain. Case discussed with Jazmyne Gale APRN, as well as pts RN.
--- NOTE | 2021-07-28 17:16 | PM.NEUROCN ---
History of Present Illness Data of Consult Service Date: 07/28/21 Primary Care Provider: [facility] Reason for consult: Severe back pain for 5 days This a 50-year-old man with a history of forDrug abuse in the past took him and with the 5 days of increasingly severe mid to lower back pain and his MRI show evidence of the perispinal infection words and epidural abscess without compression of any nerve roots. Review of Systems Review of Systems: Yes all other systems are reviewed and are negative PMFSH Past Medical History Medical History Anxiety Depression HTN (hypertension) Intravenous drug abuse in remission Social History Social History Alcohol intake: never Patient Tobacco Use Status: Current everyday Tobacco user Use of substances other than those prescribed or required for medical reasons: No Advance Directives: No Meds Allergies Allergy/AdvReac Type Severity Reaction Status Date / Time No Known Allergies Allergy Unverified 06/10/20 15:11 [No Known Allergies*] Active Medications: Current Medications Acetaminophen (Acetaminophen 325 Mg Tablet) 650 mg PO Q6H PRN PRN Reason: Pain, Mild (Pain Scale 1-3) Buprenorphine/Naloxone (Buprenorphine/Naloxone 12/3 Mg Film) 1 film SUBLINGUAL DAILY [facility] Last Admin: 07/28/21 08:52 Dose: 1 film Documented by: Docusate Sodium (Docusate Sodium 100 Mg Capsule) 100 mg PO DAILY PRN PRN Reason: Constipation Hydromorphone HCl (Hydromorphone Hcl 2 Mg/Ml Vial) 1 mg IVPUSH Q3H PRN; Protocol PRN Reason: Pain, Severe (Pain Scale 7-10) Piperacillin Sod/Tazobactam (Sod 3.375 gm/ Sodium Chloride) 50 mls @ 100 mls/hr IV Q6H [facility] Last Infusion: 07/28/21 12:43 Dose: Infused Documented by: Vancomycin HCl 1,000 mg/ (Sodium Chloride) 270 mls @ 270 mls/hr IV Q12H [facility] Last Infusion: 07/28/21 10:15 Dose: Infused Documented by: Ondansetron HCl (Ondansetron Hcl 4 Mg/2 Ml Vial) 4 mg IVPUSH Q8H PRN PRN Reason: Nausea and Vomiting Last Admin: 07/28/21 02:18 Dose: 4 mg Documented by: Oxycodone HCl (Oxycodone Hcl Immed Release 5 Mg Tablet) 10 mg PO Q6H PRN PRN Reason: Pain, Moderate (Pain Scale 4-6 Pharmacy Consult (Consult Rx Vancomycin Dosing) 1 each MISCELLANE DAILY PRN PRN Reason: Consult order Prazosin HCl (Prazosin Hcl 1 Mg Capsule) 2 mg PO BID [facility]; Protocol Last Admin: 07/28/21 08:52 Dose: 2 mg Documented by: Sodium Chloride (0.9 % Sodium Chloride Flush 3 Ml Syringe) [address] [facility] Last Admin: 07/28/21 09:21 Dose: 3 ml Documented by: Trazodone HCl (Trazodone Hcl 100 Mg Tablet) 200 mg PO BEDTIME PRN PRN Reason: Insomnia Last Admin: 07/28/21 02:18 Dose: 200 mg Documented by: Venlafaxine HCl (Venlafaxine Hcl Er 37.5 Mg Cap.Er.24h) 37.5 mg PO DAILY [facility] Last Admin: 07/28/21 08:52 Dose: 37.5 mg Documented by: Venlafaxine HCl (Venlafaxine Hcl Er 150 Mg Cap.Er.24h) 150 mg PO DAILY [facility] Last Admin: 07/28/21 08:52 Dose: 150 mg Documented by: Home Medications Medication Instructions Recorded Confirmed Last Taken Type buprenorphine 12 mg-naloxone 3 mg 1 strip SUBLINGUAL DAILY 07/28/21 07/28/21 Unknown History sublingual film (Suboxone) prazosin 2 mg capsule 1 cap PO BID 07/28/21 07/28/21 Unknown History trazodone 100 mg tablet 2 tab PO BEDTIME PRN 07/28/21 07/28/21 Unknown History venlafaxine 150 mg 1 cap PO DAILY 07/28/21 07/28/21 Unknown History capsule,extended release 24 hr venlafaxine 37.5 mg 1 cap PO DAILY 07/28/21 07/28/21 Unknown History capsule,extended release 24 hr Physical Exam Vital Signs: Vital Signs: Last Vital Signs Temp 98.9 F 07/28/21 05:21 Pulse 101 H 07/28/21 16:07 Resp 18 07/28/21 16:07 BP 152/104 H 07/28/21 16:07 Pulse Ox 96 07/28/21 16:07 Body Mass Index 24.3 Const: General: cooperative and no acute distress Orientation/consciousness: patient oriented x3 Eyes: General: appearance normal, both eyes and all related structures Resp: Effort & Inspection: normal respiratory effort Auscultation: clear to auscultation bilaterally Cardio: Rate: regular rate Rhythm: regular rhythm GI: Palpation (GI): Soft to palpation Auscultation: normal bowel sounds Skin: General skin exam: no rashes or lesions noted Neuro: Other: Normal neurological examination, specifically no weakness in the loweer extremities with normal reflexes. General: patient oriented x3 Cognition (Neuro): normal cognition Extrem: General: Yes normal to inspection and Yes no pedal edema Results Labs CBC & Chem 7: 07/28/21 07:01 07/28/21 07:01 Labs: Short CBC 07/27/21 07/28/21 Range/Units 20:26 07:01 WBC 17.7 H 19.1 H (4.8-10.8) X10*3/uL Hgb 13.5 L 13.5 L (14.0-18.0) g/dl Hct 40.6 L 39.5 L (42.0-52.0) % Plt Count 252 205 (160-400) X10*3/uL BMP 07/27/21 07/28/21 20:26 07:01 Sodium 136 134 L Potassium 3.6 3.8 Chloride 95 L 96 Carbon Dioxide 32 H 26 BUN 14 D 11 Creatinine 0.74 0.62 Calcium 9.1 8.3 L D Microbiology Microbiology Results: Microbiology 07/27/21 20:40 Blood - Venous Blood Culture - Preliminary Prelim: GPC Gram Stain only 07/27/21 20:25 Blood - Venous Blood Culture - Preliminary Prelim: GPC Gram Stain only Assessment and Plan (1) Abscess in epidural space of lumbar spine: Status: Acute At this time she he does not require any surgical intervention. He is had a draining of 6 cc of for purulent fluid which has been self for cultures. He needs a tube biotics to cover this and the unless some weakness develops in the legs. They should not be need for surgical decompression. 50-year-old male with past medical history of hypertension as well as IV drug use presents to the hospital with complaints of back pain found to have epidural abscess # epidural abscess - most like secondary to IV drug - no neurological deficits at this time - will start him on IV antibiotic - consult infectious disease - neurology consult - case was discussed with Neurosurgery at [facility] and stated the patient does not need any neuro surgical intervention at this time unless develops significant neurological deficit which patient does not have at this time - follow culture # hypertension - stable - continue prazosin # depression anxiety - continue home medication # IV drug use - continue Suboxone DVT prophylaxis: SCDs given the epidural abscess and potential need for surgical intervention Procedures Date of Service Date of Service: 07/28/21
--- NOTE | 2021-07-28 18:34 | MHC.CM.PN ---
CM attempted to meet with admitted patient with bed assignment pending. Pt in severe pain. Moaning and thrashing about in bed. Unable to conduct interview. RN aware. States will medicate. CM will follow up when patient has improved pain management.
--- NOTE | 2021-07-28 19:34 | PC.NURSE ---
REPORT TAKEN FROM ANGELA LOPEZ FIRST CONTACT WITH PT. PT RESTLESS REPORTING SEVERE BACK PAIN. SKIN PWD RESPIRATIONS EVEN UNLABORED. PO FLUIDS GIVEN PER REQUEST. IV DRESSING FOUND LOOSE-CHANGED AND SECURED. FLOOR OF PT ROOM COVERED WITH ARTICLES OF CLOTHING, BLANKETS, SHOES, WHEELCHAIR WHEELS. ALL ITEMS PICKED UP OFF OF FLOOR RED SOCKS PLACED BACK ON PT FEET. INSTRUCTED PT TO NOT THROW ITEMS ON FLOOR IT WILL CREATE A FALL HAZARD.
[2021-07-28] MEDS: HYDROmorphone HCl 2 MG/ML VIAL IVPUSH (19:49)
--- NOTE | 2021-07-28 20:48 | MHC.CM.PN ---
CM met with admitted patient with bed assignment pending. Pt appears much more comfortable. Awakened for assessment. Pt answering questions with minimal response. No IMM necessary. No HCP on file. Education provided, patient declines. Lives with mother and brother. Uses a cane and has no services. Pt has hx IVDA. Admits in medical record to using months ago / Tox screen positive for fentanly and marijuana. On suboxone. Has epidural abcess. Plan of care is IV antibiotics. Unsure of length of treatment. D/C plan dependent on treatment plan. Transportation by family. CM to follow for d/c needs.
[2021-07-28] MEDS: oxyCODONE HCl Immed Release 5 MG TABLET 10 MG PO (21:31)
--- NOTE | 2021-07-28 23:00 | W.PM.IDCN ---
History of Present Illness Data of Consult Service Date: 07/28/21 Requesting physician: Shea Villarreal Primary Care Provider: [facility] Reason for consult: bacteremia,lumbar abscess He presents with severe back pain,07/03 He was found to have lumbar abscess,discussed with Neurosurgery and nothing to operate on. He has had opioid use disorder PMFSH Past Medical History Medical History Anxiety Depression HTN (hypertension) Intravenous drug abuse in remission Social History Social History Household Members: Family Housing: House Alcohol intake: never Patient Tobacco Use Status: Current everyday Tobacco user Tobacco use type: Cigarette Substance Use Type: Marijuana service: No Current occupational status: unemployed Meds Allergies Allergy/AdvReac Type Severity Reaction Status Date / Time No Known Allergies Allergy Unverified 06/10/20 15:11 [No Known Allergies*] Active Medications: Current Medications Acetaminophen (Acetaminophen 325 Mg Tablet) 650 mg PO Q6H PRN PRN Reason: Pain, Mild (Pain Scale 1-3) Buprenorphine/Naloxone (Buprenorphine/Naloxone 12/3 Mg Film) 1 film SUBLINGUAL DAILY [facility] Last Admin: 07/28/21 08:52 Dose: 1 film Documented by: Docusate Sodium (Docusate Sodium 100 Mg Capsule) 100 mg PO DAILY PRN PRN Reason: Constipation Hydromorphone HCl (Hydromorphone Hcl 2 Mg/Ml Vial) 2 mg IVPUSH Q4H PRN; Protocol PRN Reason: Pain, Severe (Pain Scale 7-10) Last Admin: 07/28/21 19:49 Dose: 2 mg Documented by: Piperacillin Sod/Tazobactam (Sod 3.375 gm/ Sodium Chloride) 50 mls @ 100 mls/hr IV Q6H [facility] Last Infusion: 07/28/21 19:37 Dose: Infused Documented by: Vancomycin HCl 1,000 mg/ (Sodium Chloride) 270 mls @ 270 mls/hr IV Q12H [facility] Last Infusion: 07/28/21 22:28 Dose: Infused Documented by: Ondansetron HCl (Ondansetron Hcl 4 Mg/2 Ml Vial) 4 mg IVPUSH Q8H PRN PRN Reason: Nausea and Vomiting Last Admin: 07/28/21 02:18 Dose: 4 mg Documented by: Oxycodone HCl (Oxycodone Hcl Immed Release 5 Mg Tablet) 10 mg PO Q6H PRN PRN Reason: Pain, Moderate (Pain Scale 4-6 Last Admin: 07/28/21 21:31 Dose: 10 mg Documented by: Pharmacy Consult (Consult Rx Vancomycin Dosing) 1 each MISCELLANE DAILY PRN PRN Reason: Consult order Prazosin HCl (Prazosin Hcl 1 Mg Capsule) 2 mg PO BID [facility]; Protocol Last Admin: 07/28/21 21:45 Dose: 2 mg Documented by: Sodium Chloride (0.9 % Sodium Chloride Flush 3 Ml [facility]ringe) [facility] Last Admin: 07/28/21 17:57 Dose: Not Given Documented by: Trazodone HCl (Trazodone Hcl 100 Mg Tablet) 200 mg PO BEDTIME PRN PRN Reason: Insomnia Last Admin: 07/28/21 21:31 Dose: 200 mg Documented by: Venlafaxine HCl (Venlafaxine Hcl Er 37.5 Mg Cap.Er.24h) 37.5 mg PO DAILY [facility] Last Admin: 07/28/21 08:52 Dose: 37.5 mg Documented by: Venlafaxine HCl (Venlafaxine Hcl Er 150 Mg Cap.Er.24h) 150 mg PO DAILY [facility] Last Admin: 07/28/21 08:52 Dose: 150 mg Documented by: Home Medications Medication Instructions Recorded Confirmed Last Taken Type prazosin 2 mg capsule 1 cap PO BID 07/28/21 07/28/21 Unknown History trazodone 100 mg tablet 2 tab PO BEDTIME PRN 07/28/21 07/28/21 Unknown History venlafaxine 150 mg 1 cap PO DAILY 07/28/21 07/28/21 Unknown History capsule,extended release 24 hr venlafaxine 37.5 mg 1 cap PO DAILY 07/28/21 07/28/21 Unknown History capsule,extended release 24 hr Physical Exam Vital Signs: Vital Signs: Last Vital Signs Temp 98.9 F 07/28/21 05:21 Pulse 90 07/28/21 21:45 Resp 20 07/28/21 19:49 BP 131/95 H 07/28/21 21:45 Pulse Ox 95 07/28/21 21:03 Body Mass Index 24.3 Const: General: cooperative Eyes: General: appearance normal, both eyes and all related structures Resp: Effort & Inspection: normal respiratory effort Cardio: Rate: regular rate Rhythm: regular rhythm GI: Palpation (GI): Soft to palpation and nontender Back/Spine/Pelvis: Other: Pain back but moves all extremites Results Labs CBC & Chem 7: 08/02/21 05:25 08/02/21 05:25 Labs: Short CBC 07/28/21 Range/Units 07:01 WBC 19.1 H (4.8-10.8) X10*3/uL Hgb 13.5 L (14.0-18.0) g/dl Hct 39.5 L (42.0-52.0) % Plt Count 205 (160-400) X10*3/uL BMP 07/28/21 07:01 Sodium 134 L Potassium 3.8 Chloride 96 Carbon Dioxide 26 BUN 11 Creatinine 0.62 Calcium 8.3 L D Microbiology Microbiology Results: Microbiology 07/27/21 20:40 Blood - Venous Blood Culture - Preliminary Prelim: GPC Gram Stain only 07/27/21 20:25 Blood - Venous Blood Culture - Preliminary Prelim: GPC Gram Stain only Assessment and Plan (1) Abscess in epidural space of lumbar spine: Status: Acute He has bacteremia Probably staph strep abscess Suggest Vancomycin Check HIV test,recheck Hepatitis C viral load (had and was treated in past)
[2021-07-29] MEDS: HYDROmorphone HCl 2 MG/ML VIAL IVPUSH ×2 (00:23→05:10)
[2021-07-29] MEDS: 0.9 % Sodium Chloride Flush 3 ML SYRINGE IVFLUSH ×4 (00:24→21:49)
[2021-07-29] MEDS: Acetaminophen 325 MG TABLET 650 MG PO ×3 (01:53→13:29)
[2021-07-29] MEDS: Morphine Sulfate 4 MG/ML CARTRIDGE IVPUSH (02:36)
--- NOTE | 2021-07-29 03:16 | PC.NURSE ---
assuming care of patient. patient moaning stating pain to lower back. patient medicated with previous rn for pain. hospitalist is aware of patients chronic pain. patient is alert, falling asleep at times then calling out and moaning in pain. patient has not asked this rn for additional medication at this time.
[2021-07-29 04:03] LABS: HIV AB/AG Nonreactive (Nonreactive); HIV Num 1 0.07 S/CO (0.00-0.99)
[2021-07-29 05:07] VITALS: BP 162/92; PULSE 90; RESP 19; TEMP 36.9; O2SAT 97
[2021-07-29] MEDS: Venlafaxine HCl ER 37.5 MG CAP.ER.24H PO (07:12)
[2021-07-29] MEDS: Buprenorphine/Naloxone 12/3 mg FILM 1 FILM SUBLINGUAL (07:12)
[2021-07-29] MEDS: Venlafaxine HCl ER 150 MG CAP.ER.24H PO (07:12)
[2021-07-29] MEDS: oxyCODONE HCl Immed Release 5 MG TABLET 10 MG PO ×2 (07:12→13:29)
[2021-07-29] MEDS: vancomycin HCL 1,000 MG in 0.9 % Sodium Chloride 250 ML 270 MG IV (07:13)
[2021-07-29] MEDS: Prazosin HCL 1 MG CAPSULE 2 MG PO ×2 (07:13→21:47)
[2021-07-29 07:20] VITALS: BP 181/88; PULSE 76; RESP 20; TEMP 36.9; O2SAT 97
--- NOTE | 2021-07-29 07:21 | PHA.MEDREC ---
Pharmacy Consult ? Medication Reconciliation Nursing has completed the medication reconciliation and Pharmacy has reviewed the medication list.
[2021-07-29 09:00] LABS: MANUAL DIFF FLAG NO
[2021-07-29 09:03] LABS: Basophils Percent Auto 0.1 % (0-2); Hemoglobin 11.8 g/dl (14.0-18.0); Imm Gran Abs Auto 0.07 X10*3/uL (0.00-0.03); Imm Gran Pct Auto 0.5 % (0.0-0.4); Lymphocytes Absolute Auto 0.7 X10*3/uL (1.2-4.9); Lymphocytes Percent Auto 5.5 % (20-40); Mean Corpuscular HGB Conc 34.7 g/dl (31.0-36.0); Mean Corpuscular Hemoglobin 31.9 pg (27.0-33.0); Mean Corpuscular Volume 91.9 fL (80.0-98.0); Mean Platelet Volume 8.2 fL (9.4-12.4); Monocytes Absolute Auto 0.9 X10*3/uL (0.1-1.2); Monocytes Percent Auto 7.2 % (2-11); Neutrophils Absolute Auto 11.3 x10*3/uL (2.0-8.3); Neutrophils Percent Auto 86.7 % (45-73); Platelet Count 196 X10*3/uL (160-400); Red Cell Distribution Width 12.6 % (11.0-16.0); White Blood Count 13.1 X10*3/uL (4.8-10.8)
[2021-07-29 09:17] LABS: Anion Gap 11 (12-20); Blood Urea Nitrogen 10 mg/dL (9-16); Calcium 8.1 mg/dL (8.4-10.2); Carbon Dioxide 31 mmol/L (22-29); Chloride 96 mmol/L (96-108); Creatinine Clr Calc Pharmacy 149.2; Estimated Glomerular Filt Rate > 60; Glucose Random 123 mg/dL (60-115); Potassium 3.2 mmol/L (3.3-5.1); Sodium 135 mmol/L (135-145)
[2021-07-29] MEDS: hydrOXYzine HCL 25 MG TABLET PO (10:43)
--- NOTE | 2021-07-29 11:19 | HO.PM.IMPN ---
Subjective Subjective Date of Service: 07/29/21 <TATI Loving - Last Filed: 07/29/21 11:54> 08/20/21 <Jasen Yusuf MD - Last Filed: 08/20/21 16:19> Interval History: Seen and examined this morning Follow-up for epidural abscess Appears more comfortable this morning. Still reporting b/l back pain. Denies fever or chills. disoriented. episodes of hallucinating <TATI Loving - Last Filed: 07/29/21 11:54> Review of Systems Review of Systems: Yes all other systems are reviewed and are negative <TATI Loving - Last Filed: 07/29/21 11:54> Constitutional Constitutional: Denies chills and Denies fever(s) <TATI Loving - Last Filed: 07/29/21 11:54> Cardiovascular Cardiovascular: Denies chest pain <TATI Loving - Last Filed: 07/29/21 11:54> Respiratory Respiratory: Denies cough <TATI Loving - Last Filed: 07/29/21 11:54> Gastrointestinal Gastrointestinal: Denies abdominal pain <TATI Loving Last Filed: 07/29/21 11:54> Physical Exam Vital Signs: Vital Signs: Last Vital Signs Temp 98.5 F 07/29/21 07:20 Pulse 76 07/29/21 07:20 Resp 20 07/29/21 07:20 BP 181/88 H 07/29/21 07:20 Pulse Ox 97 07/29/21 07:20 Body Mass Index 24.3 <TATI Loving - Last Filed: 07/29/21 11:54> Const: Other: disoriented <TATI Loving Last Filed: 07/29/21 11:54> General: alert and awake <TATI Loving Last Filed: 07/29/21 11:54> Nutritional Appearance: well nourished <TATI Loving Last Filed: 07/29/21 11:54> HENMT: Head: Yes normocephalic and Yes atraumatic <TATI Loving Last Filed: 07/29/21 11:54> Eyes: Sclerae: sclerae normal <TATI Loving - Last Filed: 07/29/21 11:54> Pupils: Equal, round and reactive pupils present <TATI Loving - Last Filed: 07/29/21 11:54> Resp: Effort & Inspection: normal respiratory effort and no respiratory distress <TATI Loving - Last Filed: 07/29/21 11:54> Cardio: Rate: regular rate <TATI Loving - Last Filed: 07/29/21 11:54> Rhythm: regular rhythm <TTAI Loving - Last Filed: 07/29/21 11:54> GI: Inspection: No distended <TATI Loving - Last Filed: 07/29/21 11:54> Palpation (GI): Soft to palpation and nontender <TATI Loving - Last Filed: 07/29/21 11:54> Neuro: Cranial nerves: Yes CN's II-XII intact bilaterally, Yes Equal, round and reactive pupils present and Yes Bilaterally intact EOM present <TATI Loving - Last Filed: 07/29/21 11:54> Extrem: Other: able to move all 4 extremities spontaneously <TATI Loving - Last Filed: 07/29/21 11:54> Objective Data Active Medications Acetaminophen (Acetaminophen 325 Mg Tablet) 650 mg PO Q6H PRN PRN Reason: Pain, Mild (Pain Scale 1-3) Last Admin: 07/29/21 07:12 Dose: 650 mg Documented by: ASCENICON Buprenorphine/Naloxone (Buprenorphine/Naloxone 12/3 Mg Film) 1 film SUBLINGUAL DAILY [facility] Last Admin: 07/29/21 07:12 Dose: 1 film Documented by: ASCENCION Docusate Sodium (Docusate Sodium 100 Mg Capsule) 100 mg PO DAILY PRN PRN Reason: Constipation Hydromorphone HCl (Hydromorphone Hcl 2 Mg/Ml Vial) 2 mg IVPUSH Q4H PRN; Protocol PRN Reason: Pain, Severe (Pain Scale 7-10) Last Admin: 07/29/21 05:10 Dose: 2 mg Documented by: GERONIMO Hydroxyzine HCl (Hydroxyzine Hcl 25 Mg Tablet) 25 mg PO Q6H PRN PRN Reason: anxiety, restlessness Last Admin: 07/29/21 10:43 Dose: 25 mg Documented by: ASCENCION Vancomycin HCl 1,000 mg/ (Sodium Chloride) 270 mls @ 270 mls/hr IV Q12H [facility] Last Infusion: 07/29/21 10:00 Dose: 270 mls/hr Documented by: ASCENCION Ondansetron HCl (Ondansetron Hcl 4 Mg/2 Ml Vial) 4 mg IVPUSH Q8H PRN PRN Reason: Nausea and Vomiting Last Admin: 07/28/21 02:18 Dose: 4 mg Documented by: CESARIO Oxycodone HCl (Oxycodone Hcl Immed Release 5 Mg Tablet) 10 mg PO Q6H PRN PRN Reason: Pain, Moderate (Pain Scale 4-6 Last Admin: 07/29/21 07:12 Dose: 10 mg Documented by: ASCENCION Pharmacy Consult (Consult Rx Vancomycin Dosing) 1 each MISCELLANE DAILY PRN PRN Reason: Consult order Prazosin HCl (Prazosin Hcl 1 Mg Capsule) 2 mg PO BID [facility]; Protocol Last Admin: 07/29/21 07:13 Dose: 2 mg Documented by: ASCENCION Sodium Chloride (0.9 % Sodium Chloride Flush 3 Ml Syringe) [address] [facility] Last Admin: 07/29/21 07:12 Dose: 3 ml Documented by: ASCENCION Trazodone HCl (Trazodone Hcl 100 Mg Tablet) 200 mg PO BEDTIME PRN PRN Reason: Insomnia Last Admin: 07/28/21 21:31 Dose: 200 mg Documented by: JEWEL Venlafaxine HCl (Venlafaxine Hcl Er 37.5 Mg Cap.Er.24h) 37.5 mg PO DAILY [facility] Last Admin: 07/29/21 07:12 Dose: 37.5 mg Documented by: ASCENCION Venlafaxine HCl (Venlafaxine Hcl Er 150 Mg Cap.Er.24h) 150 mg PO DAILY [facility] Last Admin: 07/29/21 07:12 Dose: 150 mg Documented by: TATI Hurtado - Last Filed: 07/29/21 11:54> Labs CBC & Chem 7: : 08/02/21 05:25 08/02/21 05:25 <TATI Loving - Last Filed: 07/29/21 11:54> Labs: Laboratory Results - last 24 hr 07/28/21 07/29/21 07/29/21 23:39 08:44 08:44 MCV 91.9 MCH 31.9 MCHC 34.7 RDW 12.6 Plt Count 196 MPV 8.2 L Immature Gran % (Auto) 0.5 H Neut % (Auto) 86.7 H Lymph % (Auto) 5.5 L [place] % (Auto) 7.2 Eos % (Auto) 0.0 Baso % (Auto) 0.1 Lymph # (Auto) 0.7 L [place] # (Auto) 0.9 Eos # (Auto) 0.0 Baso # (Auto) 0.0 Abs Immat Gran (auto) 0.07 H Absolute Neuts (auto) 11.3 H Absolute Nucleated RBC 0.000 Nucleated RBC % (auto) 0.0 Anion Gap 11 L Estim Creat Clear Calc 149.2 Estimated GFR > 60 Random Glucose 123 H Calcium 8.1 L HIV 1&2 Ab/P24 Ag 4thGn Nonreactive <TATI Loving - Last Filed: 07/29/21 11:54> Microbiology Microbiology Results: Microbiology 07/27/21 20:40 Blood Culture - Preliminary Blood - Venous Staphylococcus aureus 07/27/21 20:25 Blood Culture - Preliminary Blood - Venous Staphylococcus aureus 07/28/21 Unknown Gram Stain - Final Spine Routine Culture - Preliminary Staphylococcus aureus Anaerobic Culture - Preliminary Culture in progress. <TATI Loving - Last Filed: 07/29/21 11:54> Assessment and Plan (1) Abscess in epidural space of lumbar spine: Status: Acute <TATI Loving - Last Filed: 07/29/21 11:54> (2) Staphylococcus aureus bacteremia: Status: Acute <TATI Loving - Last Filed: 07/29/21 11:54> Assessment and Plan: his is a 50-year-old male with past medical history of hypertension as well as IV drug use presents to the hospital with complaints of back pain found to have epidural abscess epidural abscess MRI lunbar spine showing: Significant irregular edema/enhancement of the right-sided L4-L5 facets. Associated right dorsal epidural collection and right paraspinal collection. 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 mild edema/enhancement of the right-sided L3-L4 and L5-S1 facets, the left-sided L4-L5 facets, and the posterior L4 vertebral body discussed with Neurosurgery at [facility] and stated the patient does not need any neuro surgical intervention at this time unless develops significant neurological deficit no neurological deficits at this time - continue IV vancomycin - s/p IR guided drainage - fluid cultures growing staph aureus - ID following, recommened vanco, Zosyn d/c - seen by neurology - no focal deficits found, no need for neurosurgical intervention - WBC trending down - follow renal function while receiving vancomycin staph bacteremia r/t underlying epidural abscess -follow final culture sensitivities delirium probably r/t to undelying bacteremia/abscess denies etoh use brain CT negative -prn ativan -if no improvement will consider LP hypertension BP elevated. pain may be playing a role. if no improvement, may need to add additional agent - continue prazosin - monitor blood pressure closely depression anxiety - continue Effexor polysubstance abuse denies active drug use tox screen + for fentanyl, marijuana - continue Suboxone - addiction med following dvt ppx - mechanical devices code status - full code attending: dr.? yusuf <TATI Loving - Last Filed: 07/29/21 11:54> his is a 50-year-old male with past medical history of hypertension as well as IV drug use presents to the hospital with complaints of back pain found to have epidural abscess epidural abscess MRI lunbar spine showing: Significant irregular edema/enhancement of the right-sided L4-L5 facets. Associated right dorsal epidural collection and right paraspinal collection. 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 mild edema/enhancement of the right-sided L3-L4 and L5-S1 facets, the left-sided L4-L5 facets, and the posterior L4 vertebral body discussed with Neurosurgery at [facility] and stated the patient does not need any neuro surgical intervention at this time unless develops significant neurological deficit no neurological deficits at this time - continue IV vancomycin - s/p IR guided drainage - fluid cultures growing staph aureus - ID following, recommened vanco, Zosyn d/c - seen by neurology - no focal deficits found, no need for neurosurgical intervention - WBC trending down - follow renal function while receiving vancomycin staph bacteremia r/t underlying epidural abscess -follow final culture sensitivities delirium probably r/t to undelying bacteremia/abscess denies etoh use brain CT negative -prn ativan -if no improvement will consider LP hypertension BP elevated. pain may be playing a role. if no improvement, may need to add additional agent - continue prazosin - monitor blood pressure closely depression anxiety - continue Effexor polysubstance abuse denies active drug use tox screen + for fentanyl, marijuana - continue Suboxone - addiction med following dvt ppx - mechanical devices code status - full code attending: dr.? yusuf I saw patient and discussed finding with midlevel provider and i agree with the above <Jasen Yusuf MD - Last Filed: 08/20/21 16:19> Quality Stroke Does the patient have a stroke diagnosis?: No <TATI Loving - Last Filed: 07/29/21 11:54> VTE Prior VTE?: No <TATI Loving - Last Filed: 07/29/21 11:54> VTE Risk Level:: Medical - moderate - high <TATI Loving - Last Filed: 07/29/21 11:54> VTE Device Contraindication: N/A - Device Ordered <TATI Loving - Last Filed: 07/29/21 11:54> VTE Drug Contraindication: Treatment Not Indicated <TATI Loving - Last Filed: 07/29/21 11:54>
[2021-07-29 12:00] VITALS: BP 162/82; PULSE 78; RESP 18; TEMP 36.7; O2SAT 96
[2021-07-29] MEDS: Thiamine HCL 500 MG in 0.9 % Sodium Chloride 100 ML 210 MG IV (13:28)
[2021-07-29] MEDS: LORazepam 1 MG TABLET PO (13:29)
--- NOTE | 2021-07-29 14:02 | MHC.CM.PN ---
EMR REVIEWED AND CASE DISCUSS W/HOSPITALIST, PT WILL NEED IV ABX AT SNF D/T RECWNT HX OF IVDU, CM MET W/PT TO DISCUSS PLAN. PT COULD NOT VERBALIZE IF HE HAD PREFERENCES OF FACILITIES, REFERRALS PLACED TO LOCAL FACILITIES THAT WILL ACCOMMODATE PT, PT WILL ALSO NEED TO COMPLETE HCP FOR PLACEMENT, CM WILL REVISIT ON SUNDAY WHEN PT IS IN BETTER PAIN CONTROL, PER HOSPITALIST ANTICIPATE PT WILL BE READY FOR D/C ON SUNDAY. D/C PLAN: STR FOR IV ABX, ACTION FOR BLS TRANSPORT
[2021-07-29 15:19] VITALS: BP 143/93; PULSE 70; RESP 15; TEMP 36.2; O2SAT 97
--- NOTE | 2021-07-29 15:55 | HO.ADDICT_ITS ---
History of Present Illness Date of Service: 07/29/2021 Chief Complaint: Epidural abscess Reason for Consult: OUD Requesting physician: Shea Villarreal Discussed with referring provider: Yes Sources of Information: patient interviewed and chart reviewed HPI Narrative: Patient is a 50 year old male with OUD, HTN and history of Hepatitis C currently medically admitted with an epidural abscess. Most inforamtion gathered from cahrt review as patient unable to really participate in interview consistently. He is seen talking to individuals who are not there, believing his cat is with him, grabbing at objects that are not there etc. He will occasionally answer a question, but the answer is not reliable (ie. denies any opioid use and UDS +opiates) Also denies any alcohol use since so many years , though he presented to ED in November 2020 with alcohol intoxication and opioid overdose on another occasion. Grunting and reporting discomfort, although he appears more comfortable then when seen initially by this insurance writer last evening. Prescribed suboxone outpatient, which he has been receiving while here. Attempted to obtain collateral from emergency contact listed in EMR, but that number is out of sevice Review of Systems Review of Systems Yes Unobtainable due to mental status Diagnostics Vital Signs (24Hr): Vital Signs - 24 hr 07/28/21 16:07 07/28/21 19:49 07/28/21 21:03 Temperature Pulse Rate 101 H 90 Respiratory Rate 18 20 Blood Pressure 152/104 H 131/95 H Pulse Oximetry 96 95 07/28/21 21:45 07/29/21 05:07 07/29/21 07:20 Temperature 98.4 F 98.5 F Pulse Rate 90 90 76 Respiratory Rate 19 20 Blood Pressure 131/95 H 162/92 H 181/88 H Pulse Oximetry 97 97 07/29/21 12:00 07/29/21 15:19 Temperature 98.1 F 97.1 F Pulse Rate 78 70 Respiratory Rate 18 15 Blood Pressure 162/82 H 143/93 H Pulse Oximetry 96 97 Body Mass Index 24.3 Labs Results: 07/29/21 08:44 07/29/21 08:44 Labs: Laboratory Results - last 48 hr 07/27/21 07/27/21 07/27/21 15:51 15:51 20:13 WBC RBC Hgb Hct MCV MCH MCHC RDW Plt Count MPV Immature Gran % (Auto) Neut % (Auto) Lymph % (Auto) Gove % (Auto) Eos % (Auto) Baso % (Auto) Lymph # (Auto) Gove # (Auto) Eos # (Auto) Baso # (Auto) Abs Immat Gran (auto) Absolute Neuts (auto) Absolute Nucleated RBC Nucleated RBC % (auto) Smear Tech's Comments PT INR Sodium Potassium Chloride Carbon Dioxide Anion Gap BUN Creatinine Estim Creat Clear Calc Estimated GFR Random Glucose Lactic Acid Calcium Urine Color DK YELLOW Urine Appearance CLEAR Urine pH 6.5 Ur Specific [place] 1.025 Urine Protein 2+ H Urine Glucose (UA) NEG Urine Ketones 5 Urine Blood 3+ H Urine Nitrite NEG Ur Leukocyte Esterase NEG Urine RBC 30-49 H Urine WBC 0-2 Ur Squamous Epith Cells TRACE Amorphous Sediment TRACE Urine Bacteria TRACE Urine Mucus 2+ Urine Opiates Screen POSITIVE H Urine Fentanyl Screen POSITIVE H Ur Barbiturates Screen Not Detected Ur Phencyclidine Scrn Not Detected Ur Amphetamines Screen Not Detected U Benzodiazepines Scrn Not Detected Urine Cocaine Screen Not Detected U Marijuana (THC) Screen POSITIVE H COVID-19 (VICKY) Negative COVID-19 Clin Com See Note HIV 1&2 Ab/P24 Ag 4thGn 07/27/21 07/27/21 07/27/21 20:25 20:26 20:26 WBC 17.7 H RBC 4.26 L Hgb 13.5 L Hct 40.6 L MCV 95.3 MCH 31.7 MCHC 33.3 RDW 13.2 Plt Count 252 MPV 8.2 L Immature Gran % (Auto) 0.4 Neut % (Auto) 82.7 H Lymph % (Auto) 9.3 L Gove % (Auto) 7.4 Eos % (Auto) 0.1 Baso % (Auto) 0.1 Lymph # (Auto) 1.7 Gove # (Auto) 1.3 H Eos # (Auto) 0.0 Baso # (Auto) 0.0 Abs Immat Gran (auto) 0.07 H Absolute Neuts (auto) 14.63 H Absolute Nucleated RBC 0.000 Nucleated RBC % (auto) 0.0 Smear Tech's Comments PT INR Sodium 136 Potassium 3.6 Chloride 95 L Carbon Dioxide 32 H Anion Gap 13 BUN 14 D Creatinine 0.74 Estim Creat Clear Calc 112.9 Estimated GFR > 60 Random Glucose 99 Lactic Acid 0.8 Calcium 9.1 Urine Color Urine Appearance Urine pH Ur Specific [place] Urine Protein Urine Glucose (UA) Urine Ketones Urine Blood Urine Nitrite Ur Leukocyte Esterase Urine RBC Urine WBC Ur Squamous Epith Cells Amorphous Sediment Urine Bacteria Urine Mucus Urine Opiates Screen Urine Fentanyl Screen Ur Barbiturates Screen Ur Phencyclidine Scrn Ur Amphetamines Screen U Benzodiazepines Scrn Urine Cocaine Screen U Marijuana (THC) Screen COVID-19 (VICKY) COVID-19 Clin Com HIV 1&2 Ab/P24 Ag 4thGn 07/28/21 07/28/21 07/28/21 07:01 07:01 09:28 WBC 19.1 H RBC 4.19 L Hgb 13.5 L Hct 39.5 L MCV 94.3 MCH 32.2 MCHC 34.2 RDW 13.0 Plt Count 205 MPV 8.4 L Immature Gran % (Auto) 0.5 H Neut % (Auto) 85.7 H Lymph % (Auto) 5.5 L Gove % (Auto) 8.2 Eos % (Auto) 0.0 Baso % (Auto) 0.1 Lymph # (Auto) 1.1 L Gove # (Auto) 1.6 H Eos # (Auto) 0.0 Baso # (Auto) 0.0 Abs Immat Gran (auto) 0.09 H Absolute Neuts (auto) 16.33 H Absolute Nucleated RBC 0.000 Nucleated RBC % (auto) 0.0 Smear Tech's Comments VERIFIED PT 15.0 H INR 1.3 H Sodium 134 L Potassium 3.8 Chloride 96 Carbon Dioxide 26 Anion Gap 16 BUN 11 Creatinine 0.62 Estim Creat Clear Calc 134.8 Estimated GFR > 60 Random Glucose 98 Lactic Acid Calcium 8.3 L D Urine Color Urine Appearance Urine pH Ur Specific [place] Urine Protein Urine Glucose (UA) Urine Ketones Urine Blood Urine Nitrite Ur Leukocyte Esterase Urine RBC Urine WBC Ur Squamous Epith Cells Amorphous Sediment Urine Bacteria Urine Mucus Urine Opiates Screen Urine Fentanyl Screen Ur Barbiturates Screen Ur Phencyclidine Scrn Ur Amphetamines Screen U Benzodiazepines Scrn Urine Cocaine Screen U Marijuana (THC) Screen COVID-19 (VICKY) COVID-19 Clin Com HIV 1&2 Ab/P24 Ag 4thGn 07/28/21 07/29/21 07/29/21 23:39 08:44 08:44 WBC 13.1 H RBC 3.70 L Hgb 11.8 L Hct 34.0 L MCV 91.9 MCH 31.9 MCHC 34.7 RDW 12.6 Plt Count 196 MPV 8.2 L Immature Gran % (Auto) 0.5 H Neut % (Auto) 86.7 H Lymph % (Auto) 5.5 L Gove % (Auto) 7.2 Eos % (Auto) 0.0 Baso % (Auto) 0.1 Lymph # (Auto) 0.7 L Gove # (Auto) 0.9 Eos # (Auto) 0.0 Baso # (Auto) 0.0 Abs Immat Gran (auto) 0.07 H Absolute Neuts (auto) 11.3 H Absolute Nucleated RBC 0.000 Nucleated RBC % (auto) 0.0 Smear Tech's Comments PT INR Sodium 135 Potassium 3.2 L Chloride 96 Carbon Dioxide 31 H Anion Gap 11 L BUN 10 Creatinine 0.56 Estim Creat Clear Calc 149.2 Estimated GFR > 60 Random Glucose 123 H Lactic Acid Calcium 8.1 L Urine Color Urine Appearance Urine pH Ur Specific [place] Urine Protein Urine Glucose (UA) Urine Ketones Urine Blood Urine Nitrite Ur Leukocyte Esterase Urine RBC Urine WBC Ur Squamous Epith Cells Amorphous Sediment Urine Bacteria Urine Mucus Urine Opiates Screen Urine Fentanyl Screen Ur Barbiturates Screen Ur Phencyclidine Scrn Ur Amphetamines Screen U Benzodiazepines Scrn Urine Cocaine Screen U Marijuana (THC) Screen COVID-19 (VICKY) COVID-19 Clin Com HIV 1&2 Ab/P24 Ag 4thGn Nonreactive Imaging Radiology Impressions: ITS Impressions Lumbar Spine MRI 07/27/21 12:55 IMPRESSION: 1. Significant irregular edema/enhancement of the right-sided L4-L5 facets. Associated right dorsal epidural collection and right paraspinal collection. 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 To a lesser extent, there also appears to be mild edema/enhancement of the right-sided L3-L4 and L5-S1 facets, the left-sided L4-L5 facets, and the posterior L4 vertebral body. The epidural collection appears most well-formed in the right dorsal aspect of the canal extending from L5-S1. There is phlegmonous expansion of the dorsal epidural space to the level of L3. 2. 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 There is severe spinal canal stenosis at L4-L5 and L5-S1. There is moderate spinal canal stenosis at L3-L4. Moderate to severe neural foraminal stenoses from L2-L5. Needle Aspiration CT 07/28/21 15:13 IMPRESSION: CT fluoroscopic-guided aspiration of right posterior paraspinal muscle abscess. Mental Status Exam Mental Status Exam Patient Appearance: Disheveled Patient Orientation: Person and Place Level of Consciousness: Awake, Restless and Inappropriate Patient Behavior: Restless Patient Cognition Impaired: Yes Hallucinations: Auditory and Visual Judgement: Poor Medications Medications Current Medications Acetaminophen (Acetaminophen 325 Mg Tablet) 650 mg PO Q6H PRN PRN Reason: Pain, Mild (Pain Scale 1-3) Last Admin: 07/29/21 13:29 Dose: 650 mg Documented by: Buprenorphine/Naloxone (Buprenorphine/Naloxone 12/3 Mg Film) 1 film SUBLINGUAL DAILY FERCHO Last Admin: 07/29/21 07:12 Dose: 1 film Documented by: Docusate Sodium (Docusate Sodium 100 Mg Capsule) 100 mg PO DAILY PRN PRN Reason: Constipation Hydromorphone HCl (Hydromorphone Hcl 2 Mg/Ml Vial) 1 mg IVPUSH Q4H PRN; Pro tocol PRN Reason: Pain, Severe (Pain Scale 7-10) Vancomycin HCl 1,000 mg/ (Sodium Chloride) 270 mls @ 270 mls/hr IV Q12H [facility] Last Infusion: 07/29/21 10:00 Dose: Infused Documented by: Thiamine HCl 500 mg/ Sodium (Chloride) 105 mls @ 210 mls/hr IV TID [facility] Stop: 07/31/21 12:44 Last Admin: 07/29/21 14:18 Dose: Not Given Documented by: Lorazepam (Lorazepam 1 Mg Tablet) 1 mg PO Q6H PRN PRN Reason: anxiety/restlessness Last Admin: 07/29/21 13:29 Dose: 1 mg Documented by: Ondansetron HCl (Ondansetron Hcl 4 Mg/2 Ml Vial) 4 mg IVPUSH Q8H PRN PRN Reason: Nausea and Vomiting Last Admin: 07/28/21 02:18 Dose: 4 mg Documented by: Oxycodone HCl (Oxycodone Hcl Immed Release 5 Mg Tablet) 10 mg PO Q6H PRN PRN Reason: Pain, Moderate (Pain Scale 4-6 Last Admin: 07/29/21 13:29 Dose: 10 mg Documented by: Pharmacy Consult (Consult Rx Vancomycin Dosing) 1 each MISCELLANE DAILY PRN PRN Reason: Consult order Prazosin HCl (Prazosin Hcl 1 Mg Capsule) 2 mg PO BID [facility]; Protocol Last Admin: 07/29/21 07:13 Dose: 2 mg Documented by: Sodium Chloride (0.9 % Sodium Chloride Flush 3 Ml Syringe) 3 ml IVFLUSH QSHIFT [facility] Last Admin: 07/29/21 07:12 Dose: 3 ml Documented by: Trazodone HCl (Trazodone Hcl 100 Mg Tablet) 200 mg PO BEDTIME PRN PRN Reason: Insomnia Last Admin: 07/28/21 21:31 Dose: 200 mg Documented by: Venlafaxine HCl (Venlafaxine Hcl Er 37.5 Mg Cap.Er.24h) 37.5 mg PO DAILY [facility] Last Admin: 07/29/21 07:12 Dose: 37.5 mg Documented by: Venlafaxine HCl (Venlafaxine Hcl Er 150 Mg Cap.Er.24h) 150 mg PO DAILY [facility] Last Admin: 07/29/21 07:12 Dose: 150 mg Documented by: Allergies Allergies Allergy/AdvReac Type Severity Reaction Status Date / Time No Known Allergies Allergy Unverified 06/10/20 15:11 [No Known Allergies*] Assessment & Plan Assessment & Plan (1) Opioid use disorder: Status: Acute Code(s): F11.90 - Opioid use, unspecified, uncomplicated Assessment and Plan: * continue suboxone as prescribed outpatient * may require higher doses of pain medication given tolerance * unclear if he is still drinking alcohol with regularity, but discussed with TATI Rondon and thiamine ordered I spent _40 minutes with the patient and/or on the patient floor today, greater than?50% of which was spent counseling/coordinating care. [facility] Past Medical History Medical History Anxiety Depression HTN (hypertension) Intravenous drug abuse in remission Social History Social History Household Members: Family Housing: House Alcohol intake: never Patient Tobacco Use Status: Current everyday Tobacco user Tobacco use type: Cigarette Substance Use Type: Marijuana service: No Current occupational status: unemployed
[2021-07-29] MEDS: HYDROmorphone HCl 2 MG/ML VIAL 1 MG IVPUSH (16:21)
--- NOTE | 2021-07-29 18:15 | PC.NURSE ---
Patient constantly reminded to call before getting up and agrees but still gets up about every 10 minutes without calling causing the in room camera to be alerted. Patient is alert and oriented x three but is not compliant with high fall risk measurement
[2021-07-29 19:20] VITALS: BP 142/102; PULSE 85; RESP 20; TEMP 36.1; O2SAT 96
[2021-07-29 20:26] LABS: Vancomycin Trough < 3.0 mcg/mL (10.0-20.0)
[2021-07-29] MEDS: vancomycin HCL 1,250 MG in 0.9 % Sodium Chloride 250 ML 166.67 MG IV (21:48)
[2021-07-29] MEDS: Haloperidol Lactate 5 MG/ML VIAL 2.5 MG IVPUSH (22:17)
[2021-07-30] VITALS (8 sets, daily range): BP systolic 126–180; BP diastolic 72–98; PULSE 78–101; RESP 17–26; TEMP 35.5–37; O2SAT 94–100
[2021-07-30] MEDS: HYDROmorphone HCl 2 MG/ML VIAL 1 MG IVPUSH ×3 (00:21→18:05)
--- NOTE | 2021-07-30 00:27 | PC.NURSE ---
Throughout shift patient grew increasingly restless and seemed to be getting more confused. Overnight hospitalist notified about change and EKG was done along with an order put in my MD for chinedu. There wasn't much of a change after medication give> He removed his IV around 22:25 and redidnt recall doing so.
[2021-07-30] MEDS: Thiamine HCL 500 MG in 0.9 % Sodium Chloride 100 ML 210 MG IV ×4 (01:26→22:00)
[2021-07-30] MEDS: LORazepam 1 MG TABLET PO (02:14)
[2021-07-30] MEDS: PHENobarbitaL sodium 130 MG/ML VIAL 272 MG IM (03:40)
[2021-07-30 03:43] LABS: Hematocrit 34.3 % (42.0-52.0); Hemoglobin 11.6 g/dl (14.0-18.0)
--- NOTE | 2021-07-30 03:54 | PC.NURSE ---
PATIENT IS A 50 YEAR OLD MALE HERE ON [facility] FOR TX OF AN EPIDURAL ABCESS. PATIENT NOTED TO BE VERY RESTLESS, IMPULSIVE, AND GETTING OOB FREQUENTLY WITH NO PURPOSEFUL REASON. ALERT TO NAME, ANSWERED SOME QUESTIONS APPROPRIATELY NUT CONFUSED. GAIT NOTED NOT SAFE AND NEEDING CUEING AND ASSISTANCE WHEN ABULATING. VITALS 97.8-94-17-172/98. BANDAID NOTED C-D-I TO LOWER RIGHT BACK. PT HAD JUST PREVIOUSLY PULLED OUT HIS IV SITE AND RN RESOURCE NURSE ABLE TO START NEW 22 GAUGE IN RT FOREARM. IVABX AND SCHEDULED THIAMINE ALL RUNNING BEHIND DUE TO NO IV ACCESS. FOR SAFETY AND INABILITY TO KEEP PT IN BED, A SITTER WAS UTILIZED AFTER AN UPDATE TO NURSING HOME ADVISOR. PT REMAINED FIDGETY, ATTEMPTING TO VOID NUMEROUS TIMES, PICKING AT CLOTHES AND SELF, ALSO REACHING IN AIR. DUE TO NO VOID, PT WAS BLADDER SCANNED AND SCAN REVEALED 598ML. HOSPITALIST ON DUTY ALERTED AND ORDER PLACED FOR VAL[facility]Z CATH PLACEMENT. [facility] INSERTED AND DRAINED 450 CLOUDY YELLOW URINE, SECURED, AND PT ALEX WELL. FEW MINUTES LATER STARTED PULLING ON TUBE, TAKE IT OUT, TAKE IT OUT...NOW, it TIWARI . VALDEZ REMOVED AND RIGHT END OF TUBING WITHDRAWN NOTED TO HAVE BLOOD IN TUBING, WHEN COMPLETELY OUT, BLEEDING FROM PENIS IN MODERATE AMOUNTS SEEN, AND EXITING WITH FOUNTAIN APPEARANCE. SOLE INKER CALLED PT ALSO RESTLESS, TRANSITION NURSE/SITTER AT BEDSIDE AND PT SIDE THROUGH ALL OF THIS EPISODE. SOLE INKER RESPONDED, PT VERBAL, CONFUSED, STILL RESTLESS PRIOR. VITALS 180/819-275-11-97.8 AND 96% ROOM AIR. PRESSURE APPLIED TO URETHRA ORIFICE AND BLEEDING SUBSIDED WITHIN 5 MINUTES. SAW PT AND PLACED NEW ORDERS. VITALS 123/83-87-20-97.8 96%RA. PHENOBARBITAL PROTOCOL ADDED TO PTS MAR AND FIRST DOSE GIVEN TO RIGHT DELTOID ORDERED AT 0342. SITTER REMAINED IN USE AT BEDSIDE, LABWORK DRAWN TO CHECK HH. NOTED PREVIOUS HH 11.8 34.0, NEW DRAW REVEALED 11.6 34.3. WILL CONTINUE TO MONITOR CLOSELY. (NOTED PREVIOUSLY PT GIVEN DILAUDID AT 0025, AND PO ATIVAN AT 0215), MD AWARE OF BOTH OF THESE WITH LITTLE TO SOME EFFECT ONLY.
[2021-07-30 04:04] LABS: Anion Gap 15 (12-20); Blood Urea Nitrogen 11 mg/dL (9-16); Carbon Dioxide 27 mmol/L (22-29); Chloride 94 mmol/L (96-108); Creatinine Clr Calc Pharmacy 141.6; Estimated Glomerular Filt Rate > 60; Glucose Random 117 mg/dL (60-115); Potassium 3.1 mmol/L (3.3-5.1); Sodium 133 mmol/L (135-145)
[2021-07-30 05:46] LABS: Basophils Percent Auto 0.1 % (0-2); Hematocrit 35.7 % (42.0-52.0); Hemoglobin 12.2 g/dl (14.0-18.0); Imm Gran Abs Auto 0.06 X10*3/uL (0.00-0.03); Imm Gran Pct Auto 0.5 % (0.0-0.4); Lymphocytes Absolute Auto 0.7 X10*3/uL (1.2-4.9); Lymphocytes Percent Auto 5.7 % (20-40); Mean Corpuscular HGB Conc 34.2 g/dl (31.0-36.0); Mean Corpuscular Volume 93.7 fL (80.0-98.0); Mean Platelet Volume 8.4 fL (9.4-12.4); Monocytes Absolute Auto 0.9 X10*3/uL (0.1-1.2); Neutrophils Absolute Auto 10.9 x10*3/uL (2.0-8.3); Neutrophils Percent Auto 86.7 % (45-73); Platelet Count 241 X10*3/uL (160-400); Red Blood Count 3.81 X10*6/uL (4.60-5.80); Red Cell Distribution Width 12.6 % (11.0-16.0); White Blood Count 12.6 X10*3/uL (4.8-10.8)
[2021-07-30] MEDS: vancomycin HCL 1,250 MG in 0.9 % Sodium Chloride 250 ML 166.67 MG IV ×2 (06:35→14:09)
[2021-07-30] MEDS: PHENobarbitaL sodium 130 MG/ML VIAL 204 MG IM ×2 (06:36→09:00)
--- NOTE | 2021-07-30 06:57 | PM.EVENT ---
Event Note Date of Service: 07/30/21 Event Note: Patient was very agitated overnight, constantly getting in bed, all oriented to self he is at times confused about his location. Bladder scan and found to have more than 500 cc of urine in bladder, Winter catheter was inserted, more than 400 cc of urine was drained, but patient started complaining of pain, Winter catheter was removed and he developed acute bleed from the penis. Therefore a rapid response was called. Bleeding stopped after few seconds with no recurrence. Hemodynamically stable. After reviewing the chart patient was found to have a history of alcohol abuse, on arrival his alcohol level was 70, patient started on phenobarb protocol for possible alcohol withdrawal. Patient was also given 2.5 Haldol with no fact. H&H was obtained, stable hemoglobin
[2021-07-30 07:12] LABS: MANUAL DIFF FLAG NO
[2021-07-30 08:09] LABS: Magnesium 1.9 mg/dL (1.6-2.6)
[2021-07-30] MEDS: Buprenorphine/Naloxone 12/3 mg FILM 1 FILM SUBLINGUAL (09:08)
[2021-07-30] MEDS: Prazosin HCL 1 MG CAPSULE 2 MG PO ×2 (09:09→20:12)
[2021-07-30] MEDS: 0.9 % Sodium Chloride Flush 3 ML SYRINGE IVFLUSH (09:10)
[2021-07-30] MEDS: Potassium Chloride Packet 20 MEQ PACKET 40 MEQ PO ×2 (09:10→17:18)
[2021-07-30] MEDS: Venlafaxine HCl ER 37.5 MG CAP.ER.24H PO (09:11)
[2021-07-30] MEDS: Venlafaxine HCl ER 150 MG CAP.ER.24H PO (09:11)
--- NOTE | 2021-07-30 10:36 | HO.PM.IMPN ---
Subjective Subjective Date of Service: 07/30/21 Interval History: seen and examined this morning follow up for epidural abscess, encephalopathy more agitated overnight, started on phenobarbital also noted to be retaining urine and a jose was placed and then subsequently removed; following that he had an episode of bleeding and a rapid response was called this morning he remains restless, disoriented although appears more comfortable unreliable historian for ROS Review of Systems Review of Systems: Yes Unobtainable due to mental condition Neurologic Neurologic: Reports confusion Psychiatric Psychiatric: Reports confusion Physical Exam Vital Signs: Vital Signs: Last Vital Signs Temp 98.4 F 07/30/21 07:25 Pulse 101 H 07/30/21 07:25 Resp 20 07/30/21 07:25 BP 180/90 H 07/30/21 07:25 Pulse Ox 96 07/30/21 07:25 Body Mass Index 24.3 Const: Other: disoriented General: alert, awake and confusion Nutritional Appearance: well nourished Orientation/consciousness: confusion HENMT: Head: Yes normocephalic and Yes atraumatic Eyes: Sclerae: sclerae normal Pupils: Equal, round and reactive pupils present Resp: Effort & Inspection: normal respiratory effort and no respiratory distress Cardio: Rate: regular rate Rhythm: regular rhythm GI: Inspection: No distended Palpation (GI): Soft to palpation and nontender Neuro: General: confusion Cranial nerves: Yes CN's II-XII intact bilaterally, Yes Equal, round and reactive pupils present and Yes Bilaterally intact EOM present Extrem: Other: able to move all 4 extremities spontaneously Objective Data Active Medications Acetaminophen (Acetaminophen 325 Mg Tablet) 650 mg PO Q6H PRN PRN Reason: Pain, Mild (Pain Scale 1-3) Last Admin: 07/29/21 13:29 Dose: 650 mg Documented by: ASCENCION Buprenorphine/Naloxone (Buprenorphine/Naloxone 12/3 Mg Film) 1 film SUBLINGUAL DAILY [facility] Last Admin: 07/30/21 09:08 Dose: 1 film Documented by: PRAVIN Docusate Sodium (Docusate Sodium 100 Mg Capsule) 100 mg PO DAILY PRN PRN Reason: Constipation Hydromorphone HCl (Hydromorphone Hcl 2 Mg/Ml Vial) 1 mg IVPUSH Q4H PRN; Protocol PRN Reason: Pain, Severe (Pain Scale 7-10) Last Admin: 07/30/21 00:21 Dose: 1 mg Documented by: STEPH Thiamine HCl 500 mg/ Sodium (Chloride) 105 mls @ 210 mls/hr IV TID [facility] Stop: 07/31/21 12:44 Last Admin: 07/30/21 09:58 Dose: 210 mls/hr Documented by: PRAVIN Vancomycin HCl 1,250 mg/ (Sodium Chloride) 250 mls @ 166.667 mls/hr IV Q8H [facility] Last Infusion: 07/30/21 08:22 Dose: 166.67 mls/hr Documented by: PRAVIN Medication (No Benzodiazepines) 1 each MISCELLANE DAILY [facility] Ondansetron HCl (Ondansetron Hcl 4 Mg/2 Ml Vial) 4 mg IVPUSH Q8H PRN PRN Reason: Nausea and Vomiting Last Admin: 07/28/21 02:18 Dose: 4 mg Documented by: CESARIO Oxycodone HCl (Oxycodone Hcl Immed Release 5 Mg Tablet) 10 mg PO Q6H PRN PRN Reason: Pain, Moderate (Pain Scale 4-6 Last Admin: 07/29/21 13:29 Dose: 10 mg Documented by: ASCENCION Pharmacy Consult (Consult Rx Vancomycin Dosing) 1 each MISCELLANE DAILY PRN PRN Reason: Consult order Phenobarbital (Phenobarbital 15 Mg Tablet) 15 mg PO DAILY [facility]; Protocol Stop: 08/05/21 09:01 Phenobarbital (Phenobarbital 15 Mg Tablet) 45 mg PO BID [facility]; Protocol Stop: 08/01/21 09:01 Phenobarbital (Phenobarbital 15 Mg Tablet) 15 mg PO BID [facility]; Protocol Stop: 08/03/21 09:01 Prazosin HCl (Prazosin Hcl 1 Mg Capsule) 2 mg PO BID [facility]; Protocol Last Admin: 07/30/21 09:09 Dose: 2 mg Documented by: PRAVIN Sodium Chloride (0.9 % Sodium Chloride Flush 3 Ml Syringe) [facility] Last Admin: 07/30/21 09:10 Dose: 3 ml Documented by: PRAVIN Trazodone HCl (Trazodone Hcl 100 Mg Tablet) 200 mg PO BEDTIME PRN PRN Reason: Insomnia Last Admin: 07/28/21 21:31 Dose: 200 mg Documented by: JEWEL Venlafaxine HCl (Venlafaxine Hcl Er 37.5 Mg Cap.Er.24h) 37.5 mg PO DAILY [facility] Last Admin: 07/30/21 09:11 Dose: 37.5 mg Documented by: PRAVIN Venlafaxine HCl (Venlafaxine Hcl Er 150 Mg Cap.Er.24h) 150 mg PO DAILY [facility] Last Admin: 07/30/21 09:11 Dose: 150 mg Documented by: PRAVIN Labs CBC & Chem 7: 07/30/21 05:26 07/30/21 Unknown Labs: Laboratory Results - last 24 hr 07/29/21 07/30/21 07/30/21 19:40 05:26 Unknown MCV 93.7 MCH 32.0 MCHC 34.2 RDW 12.6 Plt Count 241 MPV 8.4 L Immature Gran % (Auto) 0.5 H Neut % (Auto) 86.7 H Lymph % (Auto) 5.7 L Waldo % (Auto) 7.0 Eos % (Auto) 0.0 Baso % (Auto) 0.1 Lymph # (Auto) 0.7 L Waldo # (Auto) 0.9 Eos # (Auto) 0.0 Baso # (Auto) 0.0 Abs Immat Gran (auto) 0.06 H Absolute Neuts (auto) 10.9 H Absolute Nucleated RBC 0.000 Nucleated RBC % (auto) 0.0 Anion Gap 15 Estim Creat Clear Calc 141.6 Estimated GFR > 60 Random Glucose 117 H Calcium 8.0 L Magnesium 1.9 Vancomycin Trough < 3.0 L Microbiology Microbiology Results: Microbiology 07/29/21 08:44 Blood Culture - Final Blood - Venous Methicillin Res Staph Aureus 07/29/21 08:44 Blood Culture - Final Blood - Venous Methicillin Res Staph Aureus 07/27/21 20:40 Blood Culture - Final Blood - Venous Methicillin Res Staph Aureus 07/27/21 20:25 Blood Culture - Final Blood - Venous Methicillin Res Staph Aureus 07/28/21 Unknown Gram Stain - Final Spine Routine Culture - Final Methicillin Res Staph Aureus Anaerobic Culture - Preliminary Culture in progress. Assessment and Plan (1) Opioid use disorder: Status: Acute (2) Staphylococcus aureus bacteremia: Status: Acute (3) Abscess in epidural space of lumbar spine: Status: Acute (4) Delirium: Status: Acute Assessment and Plan: his is a 50-year-old male with past medical history of hypertension as well as IV drug use presents to the hospital with complaints of back pain found to have epidural abscess epidural abscess MRI lunbar spine showing: Significant irregular edema/enhancement of the right-sided L4-L5 facets. Associated right dorsal epidural collection and right paraspinal collection. 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 mild edema/enhancement of the right-sided L3-L4 and L5-S1 facets, the left-sided L4-L5 facets, and the posterior L4 vertebral body discussed with Neurosurgery at [facility] and stated the patient does not need any neuro surgical intervention at this time unless develops significant neurological deficit no neurological deficits at this time - continue IV vancomycin started 07/28 - s/p IR guided drainage - fluid cultures growing MRSA - ID following, recommened vanco, Zosyn d/c - seen by neurology - no focal deficits found, no need for neurosurgical intervention - WBC trending down - follow renal function while receiving vancomycin - echo ordered staph bacteremia r/t underlying epidural abscess BCx from 07/27 and 07/29 growing MRSA -follow final culture sensitivities -repeat blood cultures pending delirium may be due to undelying bacteremia/abscess denies etoh use, but has previous ED visit for etoh use empirically started on IV thimaine and ativan, but was still agitated, so started on phenobarbital overnight brain CT negative hypokalemia replace prn follow BMP will check mag hypertension BP elevated. pain may be playing a role. if no improvement, may need to add additional agent - continue prazosin - monitor blood pressure closely Mood - continue Effexor polysubstance abuse denies active drug use tox screen + for fentanyl, marijuana - continue Suboxone - addiction med following dvt ppx - mechanical devices code status - full code attending: attempted to call mother, contact listed, but phone number out of service Quality Stroke Does the patient have a stroke diagnosis?: No VTE Prior VTE?: No VTE Risk Level:: Medical - moderate - high VTE Device Contraindication: N/A - Device Ordered VTE Drug Contraindication: Treatment Not Indicated
[2021-07-30] MEDS: PHENobarbitaL sodium 65 MG/ML VIAL 204 MG IM (12:54)
--- NOTE | 2021-07-30 13:56 | MHC.CM.PN ---
CALL FROM PATIENT'S MOTHER SHY ([phone] CELL AND [phone] HOME) SHY IS ASKING FOR ESTIMATION OF PATIENT DC. SHY MADE AWARE THAT GLASS FITTER WILL NEED PERMISSION FROM PATIENT TO SPEAK WITH HER. SHY IS CONSIDERING STARTING PROCESS FOR SECTION 35. SHE IS AWARE THAT PATIENT IS NOT YET DISCHARGED AND UNABLE TO BE ESCORTED FOR THIS PROCESS. THIS LOANS CONSULTANT ASKED PATIENT FOR PERMISSION TO OFFER INFORMATION TO [facility]; HOWEVER, PATIENT IS NOT RESPONDING TOP REQUEST. HE IS NOT ORIENTED AT THIS TIME AND APPEARS TO BE RESTLESS AND ATTEMPTING TO GET OUT OF BED. SITTER IS IN ROOM. SHY TELLS THIS LOANS CONSULTANT THAT CONTACT [facility] IS IN WOMENS' CUSTODIAL AT THIS TIME, AND IS NOT PATIENT'S MOTHER LISTED IN EXPANSE. RN MADE AWARE.
[2021-07-30] MEDS: oxyCODONE HCl Immed Release 5 MG TABLET 10 MG PO ×2 (15:48→21:51)
[2021-07-30] MEDS: PHENobarbitaL 15 MG TABLET 45 MG PO (20:12)
[2021-07-30] MEDS: PHENobarbitaL sodium 130 MG/ML VIAL IM (20:12)
[2021-07-30] MEDS: vancomycin HCL 1,250 MG in 0.9 % Sodium Chloride 250 ML 166.66 MG IV (20:13)
[2021-07-30 20:30] LABS: Vancomycin Trough 10.5 mcg/mL (10.0-20.0)
[2021-07-30] MEDS: Haloperidol Lactate 5 MG/ML VIAL IVPUSH (22:13)
[2021-07-30] MEDS: diphenhydrAMINE HCL 50 MG/ML VIAL 25 MG IVPUSH (22:37)
--- NOTE | 2021-07-30 22:51 | PC.NURSE ---
Severe hallucination, uncooperative, unsteady on his feet. Dr Luciano was notified , pt medicated marco antonio Phenobarbital 130 mg IM, medicated with no effect, medicated with Haldol IV, medicated with Benadryl IV for rash on back and lower extramities
[2021-07-31] VITALS (9 sets, daily range): BP systolic 139–163; BP diastolic 80–95; PULSE 80–86; RESP 16–22; TEMP 36.6–37.3; O2SAT 97–98
[2021-07-31] MEDS: 0.9 % Sodium Chloride Flush 3 ML SYRINGE IVFLUSH ×4 (00:11→20:20)
[2021-07-31] MEDS: HYDROmorphone HCl 2 MG/ML VIAL 1 MG IVPUSH ×2 (02:40→17:08)
[2021-07-31 05:46] LABS: MANUAL DIFF FLAG NO
[2021-07-31 05:51] LABS: Basophils Percent Auto 0.1 % (0-2); Eosinophils Percent Auto 0.1 % (0-4); Hematocrit 36.4 % (42.0-52.0); Hemoglobin 12.3 g/dl (14.0-18.0); Imm Gran Abs Auto 0.07 X10*3/uL (0.00-0.03); Imm Gran Pct Auto 0.5 % (0.0-0.4); Lymphocytes Absolute Auto 0.9 X10*3/uL (1.2-4.9); Lymphocytes Percent Auto 7.1 % (20-40); Mean Corpuscular HGB Conc 33.8 g/dl (31.0-36.0); Mean Corpuscular Hemoglobin 31.2 pg (27.0-33.0); Mean Corpuscular Volume 92.4 fL (80.0-98.0); Mean Platelet Volume 8.4 fL (9.4-12.4); Monocytes Absolute Auto 1.1 X10*3/uL (0.1-1.2); Monocytes Percent Auto 8.6 % (2-11); Neutrophils Absolute Auto 10.7 x10*3/uL (2.0-8.3); Neutrophils Percent Auto 83.6 % (45-73); Platelet Count 274 X10*3/uL (160-400); Red Blood Count 3.94 X10*6/uL (4.60-5.80); Red Cell Distribution Width 12.4 % (11.0-16.0); White Blood Count 12.8 X10*3/uL (4.8-10.8)
[2021-07-31] MEDS: vancomycin HCL 1,250 MG in 0.9 % Sodium Chloride 250 ML 166.67 MG IV (06:02)
[2021-07-31 06:09] LABS: Anion Gap 16 (12-20); Blood Urea Nitrogen 7 mg/dL (9-16); Carbon Dioxide 27 mmol/L (22-29); Chloride 93 mmol/L (96-108); Creatinine Clr Calc Pharmacy 146.6; Estimated Glomerular Filt Rate > 60; Glucose Random 106 mg/dL (60-115); Potassium 3.6 mmol/L (3.3-5.1); Sodium 132 mmol/L (135-145)
--- NOTE | 2021-07-31 07:11 | PC.NURSE ---
Patient voided 550mL approximately midnight. PVR 210. Attmpted to void 1.5 hours later without success.
[2021-07-31 07:32] LABS: Alanine Aminotransferase 78 U/L (0-40); Albumin Level 3.4 g/dL (3.5-5.0); Alkaline Phosphatase 86 U/L (39-117); Aspartate Amino Transferase 58 U/L (5-37); Bilirubin Direct 0.4 mg/dL (0.0-0.5); Bilirubin Total 0.8 mg/dL (0.0-1.0); Total Protein 6.7 g/dL (6.5-8.0)
[2021-07-31] MEDS: Venlafaxine HCl ER 150 MG CAP.ER.24H PO (07:54)
[2021-07-31] MEDS: Venlafaxine HCl ER 37.5 MG CAP.ER.24H PO (07:54)
[2021-07-31] MEDS: Prazosin HCL 1 MG CAPSULE 2 MG PO ×2 (07:54→20:16)
[2021-07-31] MEDS: PHENobarbitaL 15 MG TABLET 45 MG PO ×2 (07:55→20:19)
[2021-07-31] MEDS: Buprenorphine/Naloxone 12/3 mg FILM 1 FILM SUBLINGUAL (07:55)
[2021-07-31] MEDS: oxyCODONE HCl Immed Release 5 MG TABLET 10 MG PO ×3 (08:34→21:19)
--- NOTE | 2021-07-31 10:53 | P.PNIM_ITS ---
Subjective Subjective Date of Service: 07/31/21 Interval History: seen and examined this morning follow up for epidural abscess still restless overnight, received additional dose of phenobarbitol and haldol much more alert this morning, less confused, able to answer questions still having some low back pain, but improving Review of Systems Review of Systems: Yes all other systems are reviewed and are negative Constitutional Constitutional: Denies chills and Denies fever(s) Cardiovascular Cardiovascular: Denies chest pain Respiratory Respiratory: Denies cough Physical Exam Vital Signs: Vital Signs: Last Vital Signs Temp 98.8 F 07/31/21 00:00 Pulse 80 07/31/21 00:00 Resp 18 07/31/21 04:18 BP 152/88 H 07/31/21 04:18 Pulse Ox 97 07/31/21 00:00 Body Mass Index 24.3 Const: Other: less confused, less agitated, still restless General: alert and awake Nutritional Appearance: well nourished Orientation/consciousness: oriented to person and oriented to place HENMT: Head: Yes normocephalic and Yes atraumatic Eyes: Sclerae: sclerae normal Pupils: Equal, round and reactive pupils present Resp: Effort & Inspection: normal respiratory effort and no respiratory distress Cardio: Rate: regular rate Rhythm: regular rhythm GI: Inspection: No distended Palpation (GI): Soft to palpation and nontender Neuro: General: oriented to person and oriented to place Cranial nerves: Yes CN's II-XII intact bilaterally, Yes Equal, round and reactive pupils present and Yes Bilaterally intact EOM present Extrem: Other: able to move all 4 extremities spontaneously; able to ambulate Objective Data Active Medications Acetaminophen (Acetaminophen 325 Mg Tablet) 650 mg PO Q6H PRN PRN Reason: Pain, Mild (Pain Scale 1-3) Last Admin: 07/29/21 13:29 Dose: 650 mg Documented by: ASCENCION Buprenorphine/Naloxone (Buprenorphine/Naloxone 12/3 Mg Film) 1 film SUBLINGUAL DAILY [facility] Last Admin: 07/31/21 07:55 Dose: 1 film Documented by: SHONNA Docusate Sodium (Docusate Sodium 100 Mg Capsule) 100 mg PO DAILY [facility] Last Admin: 07/31/21 07:55 Dose: Not Given Documented by: SHONNA Non-Admin Reason: Patient Refused Hydromorphone HCl (Hydromorphone Hcl 2 Mg/Ml Vial) 1 mg IVPUSH Q4H PRN; Protocol PRN Reason: Pain, Severe (Pain Scale 7-10) Last Admin: 07/31/21 02:40 Dose: 1 mg Documented by: HUGH Thiamine HCl 500 mg/ Sodium (Chloride) 105 mls @ 210 mls/hr IV TID FERCHO Stop: 07/31/21 12:44 Last Infusion: 07/30/21 22:44 Dose: 0 mls/hr Documented by: MICAELA Vancomycin HCl 1,250 mg/ (Sodium Chloride) 250 mls @ 166.667 mls/hr IV Q8H FERCHO Last Infusion: 07/31/21 07:55 Dose: 0 mls/hr Documented by: SHONNA Medication (No Benzodiazepines) 1 each MISCELLANE DAILY [facility] Ondansetron HCl (Ondansetron Hcl 4 Mg/2 Ml Vial) 4 mg IVPUSH Q8H PRN PRN Reason: Nausea and Vomiting Last Admin: 07/28/21 02:18 Dose: 4 mg Documented by: CESARIO Oxycodone HCl (Oxycodone Hcl Immed Release 5 Mg Tablet) 10 mg PO Q6H PRN PRN Reason: Pain, Moderate (Pain Scale 4-6 Last Admin: 07/31/21 08:34 Dose: 10 mg Documented by: SHONNA Pharmacy Consult (Consult Rx Vancomycin Dosing) 1 each MISCELLANE DAILY PRN PRN Reason: Consult order Phenobarbital (Phenobarbital 15 Mg Tablet) 15 mg PO DAILY [facility]; Protocol Stop: 08/05/21 09:01 Phenobarbital (Phenobarbital 15 Mg Tablet) 45 mg PO BID [facility]; Protocol Stop: 08/01/21 09:01 Last Admin: 07/31/21 07:55 Dose: 45 mg Documented by: SHONNA Phenobarbital (Phenobarbital 15 Mg Tablet) 15 mg PO BID [facility]; Protocol Stop: 08/03/21 09:01 Prazosin HCl (Prazosin Hcl 1 Mg Capsule) 2 mg PO BID [facility]; Protocol Last Admin: 07/31/21 07:54 Dose: 2 mg Documented by: SHONNA Senna (Sennosides 8.6 Mg Tablet) 8.6 mg PO BEDTIME PRN PRN Reason: constipation Sodium Chloride (0.9 % Sodium Chloride Flush 3 Ml Syringe) 3 ml IVFLUSH QSHIFT [facility] Last Admin: 07/31/21 06:04 Dose: 3 ml Documented by: HUGH Trazodone HCl (Trazodone Hcl 100 Mg Tablet) 200 mg PO BEDTIME PRN PRN Reason: Insomnia Last Admin: 07/28/21 21:31 Dose: 200 mg Documented by: JEWEL Venlafaxine HCl (Venlafaxine Hcl Er 37.5 Mg Cap.Er.24h) 37.5 mg PO DAILY [facility] Last Admin: 07/31/21 07:54 Dose: 37.5 mg Documented by: SHONNA Venlafaxine HCl (Venlafaxine Hcl Er 150 Mg Cap.Er.24h) 150 mg PO DAILY [facility] Last Admin: 07/31/21 07:54 Dose: 150 mg Documented by: SHONNA Labs CBC & Chem 7: 07/31/21 05:28 07/31/21 05:28 Labs: Laboratory Results - last 24 hr 07/30/21 07/31/21 07/31/21 19:58 05:28 05:28 MCV 92.4 MCH 31.2 MCHC 33.8 RDW 12.4 Plt Count 274 MPV 8.4 L Immature Gran % (Auto) 0.5 H Neut % (Auto) 83.6 H Lymph % (Auto) 7.1 L [place] % (Auto) 8.6 Eos % (Auto) 0.1 Baso % (Auto) 0.1 Lymph # (Auto) 0.9 L [place] # (Auto) 1.1 Eos # (Auto) 0.0 Baso # (Auto) 0.0 Abs Immat Gran (auto) 0.07 H Absolute Neuts (auto) 10.7 H Absolute Nucleated RBC 0.000 Nucleated RBC % (auto) 0.0 Anion Gap 16 Estim Creat Clear Calc 146.6 Estimated GFR > 60 Random Glucose 106 Calcium 8.0 L Total Bilirubin 0.8 Direct Bilirubin 0.4 AST 58 H ALT 78 H Alkaline Phosphatase 86 Total Protein 6.7 Albumin 3.4 L Vancomycin Trough 10.5 Microbiology Microbiology Results: Microbiology 07/30/21 11:09 Blood Culture - Preliminary Blood - Venous Prelim: GPC Gram Stain only 07/28/21 Unknown Gram Stain - Final Spine Routine Culture - Final Methicillin Res Staph Aureus Anaerobic Culture - Preliminary Culture in progress. 07/30/21 11:11 Blood Culture - Preliminary Blood - Venous Prelim: GPC Gram Stain only 07/29/21 08:44 Blood Culture - Final Blood - Venous Methicillin Res Staph Aureus 07/29/21 08:44 Blood Culture - Final Blood - Venous Methicillin Res Staph Aureus 07/27/21 20:40 Blood Culture - Final Blood - Venous Methicillin Res Staph Aureus 07/27/21 20:25 Blood Culture - Final Blood - Venous Methicillin Res Staph Aureus Assessment and Plan (1) Abscess in epidural space of lumbar spine: Status: Acute (2) Delirium: Status: Acute (3) Opioid use disorder: Status: Acute (4) Staphylococcus aureus bacteremia: Status: Acute Assessment and Plan: his is a 50-year-old male with past medical history of hypertension as well as IV drug use presents to the hospital with complaints of back pain found to have epidural abscess epidural abscess MRI lunbar spine showing: Significant irregular edema/enhancement of the right- sided L4-L5 facets. Associated right dorsal epidural collection and right paraspinal collection. 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 mild edema/enhancement of the right-sided L3-L4 and L5-S1 facets, the left-sided L4-L5 facets, and the posterior L4 vertebral body discussed with Neurosurgery at [facility] and stated the patient does not need any neuro surgical intervention at this time unless develops significant neurological deficit no neurological deficits at this time - continue IV vancomycin started 07/28 - s/p IR guided drainage -07/29 4mL of purulent material drained - fluid cultures growing MRSA - ID following, recommended vanco, Zosyn d/c - seen by neurology - no focal deficits found, no need for neurosurgical intervention - WBC trending down - follow renal function while receiving vancomycin - echo ordered persistent staph bacteremia r/t underlying epidural abscess BCx from 07/27, 07/29 growing MRSA; 07/30 gram stain GPC -repeat blood cultures pending -will discuss need to alter antibiotic selection with ID given persistently + blood cultures delirium improving may be due to undelying bacteremia/abscess possibly due to etoh withdrawal denies etoh use, but has previous ED visit for etoh intoxication unable to reach family for collateral info improving with phenobarbitol -continue phenobarbital -continue IV thiamine (TID x 2 days) hypokalemia improved. hypertension BP improving if no improvement, may need to add additional agent - continue prazosin - monitor blood pressure closely Mood - continue Effexor polysubstance abuse denies active drug use tox screen + for fentanyl, marijuana - continue Suboxone - addiction med following dvt ppx - mechanical devices code status - full code attending: attempted to call mother, contact listed, but phone number out of service Quality Stroke Does the patient have a stroke diagnosis?: No VTE Prior VTE?: No VTE Risk Level:: Medical - moderate - high VTE Device Contraindication: N/A - Device Ordered VTE Drug Contraindication: Treatment Not Indicated
[2021-07-31] MEDS: Thiamine HCL 500 MG in 0.9 % Sodium Chloride 100 ML 210 MG IV (11:05)
[2021-07-31] MEDS: polyethylene glycoL 3350 17 GM POWD.PACK PO (14:33)
[2021-07-31] MEDS: vancomycin HCL 1,250 MG in 0.9 % Sodium Chloride 250 ML 166.66 MG IV (14:34)
--- NOTE | 2021-07-31 16:31 | ECG_ITS ---
Test Reason : eval qtc Blood Pressure : / mmHG Vent. Rate : 083 BPM Atrial Rate : 083 BPM P-R Int : 118 ms QRS Dur : 098 ms QT Int : 392 ms P-R-T Axes : 052 020 048 degrees QTc Int : 460 ms Normal sinus rhythm Intra-ventricular conduction delay Otherwise normal ECG No significant changes seen Referred By: Shea Villarreal Electronically Signed By:COREY BRANTLEY MD
[2021-07-31] MEDS: QUEtiapine Fumarate 25 MG TABLET PO (17:06)
--- NOTE | 2021-07-31 20:09 | PC.NURSE ---
Pt attemped to void and voided 100 ml. Bladder scan at 17:00 showed 526 ml. Pt attemped to void twice with minimal output <100 ml. Notified provider. Stated give more time to avoid trauma of catheterization r/t urethral bleeding with last jose removal. Will monitor pt.
[2021-07-31] MEDS: Tamsulosin HCL 0.4 MG CAPSULE PO (20:15)
[2021-07-31 20:43] LABS: Vancomycin Trough 16.5 mcg/mL (10.0-20.0)
[2021-07-31] MEDS: vancomycin HCL 1,250 MG in 0.9 % Sodium Chloride 250 ML 166.6 MG IV (21:20)
[2021-08-01] VITALS (7 sets, daily range): BP systolic 113–151; BP diastolic 60–89; PULSE 82–113; RESP 16–22; TEMP 36.5–37.2; O2SAT 94–100
[2021-08-01] MEDS: HYDROmorphone HCl 2 MG/ML VIAL 1 MG IVPUSH ×2 (02:42→20:05)
--- NOTE | 2021-08-01 03:24 | PC.NURSE ---
Bladder scan revealed 698 MLS. It was reported to me that patient voided. Recheck of bladder scan [address] Heller notified. Told to straight cath. Pt voided 600 MLS (urine in the hat). Rechecked bladder scan and pt had 122 MLS. Held straight cath for now-MD aware.Pt medicated for abdominal pain with Dilaudid. [facility] [place] texted with Critical lab: 1 BC from 07/31/21 gram positive cocci in clusters. notified. No new orders. Will continue to monitor.
[2021-08-01] MEDS: vancomycin HCL 1,250 MG in 0.9 % Sodium Chloride 250 ML 166.6 MG IV (04:37)
[2021-08-01] MEDS: oxyCODONE HCl Immed Release 5 MG TABLET 10 MG PO ×5 (04:38→21:02)
[2021-08-01 06:38] LABS: Anion Gap 13 (12-20); Blood Urea Nitrogen 8 mg/dL (9-16); Calcium 7.9 mg/dL (8.4-10.2); Carbon Dioxide 29 mmol/L (22-29); Chloride 94 mmol/L (96-108); Creatinine Clr Calc Pharmacy 141.6; Estimated Glomerular Filt Rate > 60; Glucose Random 116 mg/dL (60-115); Potassium 3.7 mmol/L (3.3-5.1); Sodium 132 mmol/L (135-145)
[2021-08-01 06:45] LABS: Hematocrit 38.4 % (42.0-52.0); Hemoglobin 12.8 g/dl (14.0-18.0); Mean Corpuscular HGB Conc 33.3 g/dl (31.0-36.0); Mean Corpuscular Hemoglobin 31.4 pg (27.0-33.0); Mean Corpuscular Volume 94.3 fL (80.0-98.0); Mean Platelet Volume 9.4 fL (9.4-12.4); Platelet Count 242 X10*3/uL (160-400); Red Blood Count 4.07 X10*6/uL (4.60-5.80); Red Cell Distribution Width 12.6 % (11.0-16.0); White Blood Count 13.7 X10*3/uL (4.8-10.8)
--- NOTE | 2021-08-01 07:21 | PC.NURSE ---
Spoke with patient about his c/o abdominal pain all night. Pt's statements regarding pain is conflicting. Says he just moans sometimes then says the pain is so bad he has to moan. Pt moaned loudly most of the night, even after medicating. Pt medicated with prns-see ALEJANDRA. I [place] texted Dr Heller regarding same-I asked if MD could assess his c/o abdominal pain (not the back pain he came in with). was also notified of 2nd blood culture from yesterday coming back with gram+ cocci. Passed along information in report as well as bladder scan/urinary retention.
[2021-08-01] MEDS: Prazosin HCL 1 MG CAPSULE 2 MG PO ×2 (09:19→21:30)
[2021-08-01] MEDS: Buprenorphine/Naloxone 12/3 mg FILM 1 FILM SUBLINGUAL (09:20)
[2021-08-01] MEDS: Docusate Sodium 100 MG CAPSULE PO (09:20)
[2021-08-01] MEDS: Venlafaxine HCl ER 150 MG CAP.ER.24H PO (09:20)
[2021-08-01] MEDS: QUEtiapine Fumarate 25 MG TABLET PO ×2 (09:20→16:36)
[2021-08-01] MEDS: PHENobarbitaL 15 MG TABLET 45 MG PO (09:20)
[2021-08-01] MEDS: Venlafaxine HCl ER 37.5 MG CAP.ER.24H PO (09:20)
[2021-08-01] MEDS: 0.9 % Sodium Chloride Flush 3 ML SYRINGE IVFLUSH ×2 (09:20→16:38)
--- NOTE | 2021-08-01 10:58 | CA_ITS ---
Transthoracic Echocardiogram Patient (Last, First, Middle): Adalberto Mari C Gender: Male Date of : 1970 Age: 50 Procedure Date: 08/01/2021 Procedure Type: Transthoracic Echocardiogram Location: S3E Height: 172.72 cm Weight: 72.58 kg BSA: 1.86 m2 Heart Rate: bpm BP: 132 / 60 mmHg Pressurization Mechanic: Referring MD: Shea DUFFY Symptoms: mrsa bacteremia Study Quality: Good ECG Rhythm: Sinus Conclusions: - The left ventricular systolic function is normal. The visually estimated ejection fraction is between 60-65%. - No obvious valvular pathology seen on this study. Findings Left Ventricle Normal left ventricular cavity size. There is mildly increased left ventricular wall thickness. The left ventricular systolic function is normal. The visually estimated ejection fraction is between 60-65%. There is no evidence of regional wall motion abnormalities. Diastolic function is normal for age. Right Ventricle Normal right ventricular cavity size and systolic function. Atria The left atrium is normal in size. The right atrium is normal in size. Aortic Valve There is a normal trileaflet aortic valve. There is no aortic valve stenosis. There is no aortic valve regurgitation. Mitral Valve The mitral valve appears normal. There is no mitral valve regurgitation. There is no mitral valve stenosis. Pulmonic Valve The pulmonic valve was not well visualized. Tricuspid Valve Normal tricuspid valve structure. There is trace tricuspid valve regurgitation. The pulmonary artery systolic pressure is normal. Great Vessels The aortic annulus and asc aorta are normal in size. Venous The inferior vena cava is normal in size and collapses greater than 50% with inspiration. Pericardium/Pleural There is no evidence of pericardial effusion. Prior Study Comparison No prior study available for comparison. Recommendations, Care & Conclusions No obvious valvular pathology seen on this study. Measurements 2D Linear Measurements IVSd: 1.12 0.6-0.9/0.6-1.0 cm LVIDd: 5.19 3.9-5.3/4.2-5.9 cm LVIDd Index: 2.79 2.4-3.2/2.2-3.1 cm/m2 LVIDs: 2.79 2.0-3.6 cm LVPWd: 1.02 0.7-1.1 cm Ao Root: 3.50 2.1-3.5 cm LA Diam: 4.30 2.7-3.8/3.0-4.0 cm LAIDs Index: 2.31 1.5-2.3 cm/m2 LV Mass: 264.20 67-162/88-224 g LV Mass Index: 142.04 43-95/49-115 g/m2 LVOT Diam: 2.50 3.0+(-)1.3 cm Mitral Valve MV Pk E: 0.83 MV PK A: 0.80 MV Decel Time: 231.00 E/A: 1.00 E'Lateral: 8.05 E'Medial: 9.14 E/E' Med: 9.00 E/E' Lat: 10.30 PHT: 68.00 MVA PHT: 3.24 Decel Rice: 3.58 Aortic Valve AoV Pk José Miguel: 1.92 AoV Mn José Miguel: 1.35 AoV VTI: 0.38 AoV Pk Grad: 15.00 Aov Mn Grad: 9.00 STEPHANIA Cont.VTI: 3.38 LVOT LVOT Pk José Miguel: 1.30 LVOT Mn José Miguel: 0.91 LVOT VTI: 0.26 LVOT Pk Grad: 7.00 LVOT Mn Grad: 4.00 LVOT Diam: 2.50 LVOT Area: 4.91 Diastolic Function MV Pk E: 0.83 MV Pk A: 0.80 E/A: 1.00 E'Medial: 9.14 E/E' Med: 9.00 E' Laterial: 8.05 E/E' Lat: 10.30 Right Ventricle TAPSE (mm): 29.00 Tricuspid Valve TR Pk José Miguel: 2.62 TR Pk Grad: 27.00 Great Vessels Aorta Ao Root-2D: 3.50 2.0-3.7 cm Ao Asc: 3.30 2.1-3.4 cm Pulmonary Valve PV Pk José Miguel: 1.45 Peak PV Grad: 8.00 Updated in Other Vendor System with Status of Final Angel Collazo MD electronically signed on 08/01/2021 5:05:56 PM with status of Final
--- NOTE | 2021-08-01 11:08 | P.PNIM_ITS ---
Subjective Subjective Date of Service: 08/01/21 <TATI Loving - Last Filed: 08/01/21 11:15> 08/20/21 <Jasen Yusuf MD - Last Filed: 08/20/21 16:24> Interval History: seen and examined this morning urinary rentention overnight, but was eventually able to void on own complaining of abdominal pain this morning has not had bowel movement no fever, chills <TATI Loving - Last Filed: 08/01/21 11:15> Review of Systems Review of Systems: Yes all other systems are reviewed and are negative <TATI Loving - Last Filed: 08/01/21 11:15> Constitutional Constitutional: Denies chills and Denies fever(s) <TATI Loving - Last Filed: 08/01/21 11:15> Cardiovascular Cardiovascular: Denies chest pain <TATI Loving - Last Filed: 08/01/21 11:15> Respiratory Respiratory: Denies cough <TATI Loving - Last Filed: 08/01/21 11:15> Gastrointestinal Gastrointestinal: Reports abdominal pain, Reports constipation and Denies diarrhea <TATI Loving Last Filed: 08/01/21 11:15> Physical Exam Vital Signs: Vital Signs: Last Vital Signs Temp 97.7 F 08/01/21 07:43 Pulse 113 H 08/01/21 07:43 Resp 18 08/01/21 07:43 BP 125/86 08/01/21 07:43 Pulse Ox 94 08/01/21 07:43 Body Mass Index 24.3 <TATI Loving - Last Filed: 08/01/21 11:15> Const: Other: appears uncomfortable this morning <TATI Loving Last Filed: 08/01/21 11:15> General: awake and Physically active <TATI Loving Last Filed: 08/01/21 11:15> Nutritional Appearance: well nourished <TATI Loving Last Filed: 08/01/21 11:15> Orientation/consciousness: oriented to person and oriented to place <TATI Loving - Last Filed: 08/01/21 11:15> HENMT: Head: Yes normocephalic and Yes atraumatic <TATI Loving - Last Filed: 08/01/21 11:15> Eyes: Sclerae: sclerae normal <TATI Loving - Last Filed: 08/01 11:15> Pupils: Equal, round and reactive pupils present <TATI Loving - Last Filed: 08/01/21 11:15> Resp: Effort & Inspection: normal respiratory effort and no respiratory distress <TATI Loving - Last Filed: 08/01/21 11:15> Cardio: Rate: regular rate <TATI Loving - Last Filed: 08/01/21 11:15> Rhythm: regular rhythm <TATI Loving - Last Filed: 08/01/21 11:15> GI: Inspection: No distended <TATI Loving - Last Filed: 08/01/21 11:15> Palpation (GI): Soft to palpation and nontender <TATI Loving - Last Filed: 08/01/21 11:15> Neuro: General: oriented to person and oriented to place <TATI Loving - Last Filed: 08/01/21 11:15> Cranial nerves: Yes CN's II-XII intact bilaterally, Yes Equal, round and reactive pupils present and Yes Bilaterally intact EOM present <TATI Loving - Last Filed: 08/01/21 11:15> Extrem: Other: able to move all 4 extremities spontaneously; able to ambulate <TATI Loving Last Filed: 08/01/21 11:15> Objective Data Active Medications Acetaminophen (Acetaminophen 325 Mg Tablet) 650 mg PO Q6H PRN PRN Reason: Pain, Mild (Pain Scale 1-3) Last Admin: 07/29/21 13:29 Dose: 650 mg Documented by: ASCENCION Buprenorphine/Naloxone (Buprenorphine/Naloxone 12/3 Mg Film) 1 film SUBLINGUAL DAILY [facility] Last Admin: 08/01/21 09:20 Dose: 1 film Documented by: ASCENCION Docusate Sodium (Docusate Sodium 100 Mg Capsule) 100 mg PO DAILY [facility] Last Admin: 08/01/21 09:20 Dose: 100 mg Documented by: ASCENCION Hydromorphone HCl (Hydromorphone Hcl 2 Mg/Ml Vial) 1 mg IVPUSH Q4H PRN; Protocol PRN Reason: Pain, Severe (Pain Scale 7-10) Last Admin: 08/01/21 02:42 Dose: 1 mg Documented by: BROWN Vancomycin HCl 1,250 mg/ (Sodium Chloride) 250 mls @ 166.667 mls/hr IV Q8H [facility] Last Infusion: 08/01/21 06:10 Dose: 0 mls/hr Documented by: BROWN Magnesium Hydroxide (Milk Of Magnesia 30 Ml Oral.Susp) 30 ml PO DAILY PRN PRN Reason: Constipation Medication (No Benzodiazepines) 1 each MISCELLANE DAILY [facility] Ondansetron HCl (Ondansetron Hcl 4 Mg/2 Ml Vial) 4 mg IVPUSH Q8H PRN PRN Reason: Nausea and Vomiting Last Admin: 07/28/21 02:18 Dose: 4 mg Documented by: CESARIO Oxycodone HCl (Oxycodone Hcl Immed Release 5 Mg Tablet) 10 mg PO Q4H PRN PRN Reason: Pain, Moderate (Pain Scale 4-6 Last Admin: 08/01/21 09:19 Dose: 10 mg Documented by: ASCENCION Pharmacy Consult (Consult Rx Vancomycin Dosing) 1 each MISCELLANE DAILY PRN PRN Reason: Consult order Phenobarbital (Phenobarbital 15 Mg Tablet) 15 mg PO DAILY [facility]; Protocol Stop: 08/05/21 09:01 Phenobarbital (Phenobarbital 15 Mg Tablet) 15 mg PO BID [facility]; Protocol Stop: 08/03/21 09:01 Polyethylene Glycol (Polyethylene Glycol 3350 17 Gm Powd.Pack) 17 gm PO DAILY [facility] Last Admin: 08/01/21 09:18 Dose: Not Given Documented by: ASCENCION Non-Admin Reason: NPO Prazosin HCl (Prazosin Hcl 1 Mg Capsule) 2 mg PO BID [facility]; Protocol Last Admin: 08/01/21 09:19 Dose: 2 mg Documented by: ASCENCION Quetiapine Fumarate (Quetiapine Fumarate 25 Mg Tablet) 25 mg PO Q8H PRN PRN Reason: anxiety/restlessness Last Admin: 08/01/21 09:20 Dose: 25 mg Documented by: ASCENCION Senna (Sennosides 8.6 Mg Tablet) 8.6 mg PO BEDTIME [facility] Sodium Chloride (0.9 % Sodium Chloride Flush 3 Ml Syringe) 3 ml IVFLUSH QSHIFT [facility] Last Admin: 08/01/21 09:20 Dose: 3 ml Documented by: ASCENCION Tamsulosin HCl (Tamsulosin Hcl 0.4 Mg Capsule) 0.4 mg PO BEDTIME [facility] Last Admin: 07/31/21 20:15 Dose: 0.4 mg Documented by: BROWN Trazodone HCl (Trazodone Hcl 100 Mg Tablet) 200 mg PO BEDTIME PRN PRN Reason: Insomnia Last Admin: 07/28/21 21:31 Dose: 200 mg Documented by: JEWEL Venlafaxine HCl (Venlafaxine Hcl Er 37.5 Mg Cap.Er.24h) 37.5 mg PO DAILY [facility] Last Admin: 08/01/21 09:20 Dose: 37.5 mg Documented by: ASCENCION Venlafaxine HCl (Venlafaxine Hcl Er 150 Mg Cap.Er.24h) 150 mg PO DAILY [facility] Last Admin: 08/01/21 09:20 Dose: 150 mg Documented by: ASCENCION <TATI Loving - Last Filed: 08/01/21 11:15> Labs CBC & Chem 7: : 08/02/21 05:25 08/02/21 05:25 <TATI Loving - Last Filed: 08/01/21 11:15> Labs: Laboratory Results - last 24 hr 07/31/21 08/01/21 08/01/21 19:54 06:03 06:03 MCV 94.3 MCH 31.4 MCHC 33.3 RDW 12.6 Plt Count 242 MPV 9.4 Absolute Nucleated RBC 0.000 Nucleated RBC % (auto) 0.0 Anion Gap 13 Estim Creat Clear Calc 141.6 Estimated GFR > 60 Random Glucose 116 H Calcium 7.9 L Vancomycin Trough 16.5 <TATI Loving - Last Filed: 08/01/21 11:15> Microbiology Microbiology Results: Microbiology 07/28/21 Unknown Gram Stain - Final Spine Routine Culture - Final Methicillin Res Staph Aureus Anaerobic Culture - Preliminary 07/30/21 11:11 Blood Culture - Preliminary Blood - Venous Staphylococcus aureus 07/30/21 11:09 Blood Culture - Preliminary Blood - Venous Staphylococcus aureus 07/31/21 08:00 Blood Culture - Preliminary Blood - Venous Prelim: GPC Gram Stain only 07/31/21 08:05 Blood Culture - Preliminary Blood - Venous Prelim: GPC Gram Stain only <TATI Loving - Last Filed: 08/01/21 11:15> Assessment and Plan (1) Abdominal pain: Status: Resolved <TATI Loving - Last Filed: 08/01/21 11:15> (2) Delirium: Status: Resolved <TATI Loving - Last Filed: 08/01/21 11:15> (3) Opioid use disorder: (4) Staphylococcus aureus bacteremia: Status: Acute <TATI Loving - Last Filed: 08/01/21 11:15> (5) Abscess in epidural space of lumbar spine: Status: Acute <TATI Loving - Last Filed: 08/01/21 11:15> Assessment and Plan: his is a 50-year-old male with past medical history of hypertension as well as IV drug use presents to the hospital with complaints of back pain found to have epidural abscess epidural abscess MRI lunbar spine showing: Significant irregular edema/enhancement of the right- sided L4-L5 facets. Associated right dorsal epidural collection and right paraspinal collection. 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 mild edema/enhancement of the right-sided L3-L4 and L5-S1 facets, the left-sided L4-L5 facets, and the posterior L4 vertebral body discussed with Neurosurgery at [facility] and stated the patient does not need any neuro surgical intervention at this time unless develops significant neurological deficit no neurological deficits at this time - continue IV vancomycin started 07/28 - s/p IR guided drainage -07/29 4mL of purulent material drained - fluid cultures growing MRSA - ID following, recommended vanco; Zosyn d/c - seen by neurology - no focal deficits found, no need for neurosurgical intervention - follow renal function while receiving vancomycin persistent staph bacteremia r/t underlying epidural abscess BCx from 07/27, 07/29 growing MRSA; 07/30 gram stain GPC -repeat blood cultures pending -will discuss need to alter antibiotic selection with ID given persistently + blood cultures -echo pending abdominal pain may be r/t constipation but given epidural abscess and bacteremia will check abdominal CT to rule out abdominal abscess continue bowel regimen delirium improving may be due to underlying bacteremia/abscess possibly due to etoh withdrawal denies etoh use, but has previous ED visit for etoh intoxication unable to reach family for collateral info improving with phenobarbitol -continue phenobarbital protocol -s/p IV thiamine (TID x 2 days) hypokalemia improved. hypertension BP improved if no improvement, may need to add additional agent - continue prazosin - monitor blood pressure closely Mood - continue Effexor polysubstance abuse denies active drug use tox screen + for fentanyl, marijuana - continue Suboxone - addiction med following dvt ppx - mechanical devices code status - full code attending: <TATI Loving - Last Filed: 08/01/21 11:15> his is a 50-year-old male with past medical history of hypertension as well as IV drug use presents to the hospital with complaints of back pain fou nd to have epidural abscess epidural abscess MRI lunbar spine showing: Significant irregular edema/enhancement of the right- sided L4-L5 facets. Associated right dorsal epidural collection and right paraspinal collection. 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 mild edema/enhancement of the right-sided L3-L4 and L5-S1 facets, the left-sided L4-L5 facets, and the posterior L4 vertebral body discussed with Neurosurgery at [facility] and stated the patient does not need any neuro surgical intervention at this time unless develops significant neurological deficit no neurological deficits at this time - continue IV vancomycin started 07/28 - s/p IR guided drainage -07/29 4mL of purulent material drained - fluid cultures growing MRSA - ID following, recommended vanco; Zosyn d/c - seen by neurology - no focal deficits found, no need for neurosurgical intervention - follow renal function while receiving vancomycin persistent staph bacteremia r/t underlying epidural abscess BCx from 07/27, 07/29 growing MRSA; 07/30 gram stain GPC -repeat blood cultures pending -will discuss need to alter antibiotic selection with ID given persistently + blood cultures -echo pending abdominal pain may be r/t constipation but given epidural abscess and bacteremia will check abdominal CT to rule out abdominal abscess continue bowel regimen delirium improving may be due to underlying bacteremia/abscess possibly due to etoh withdrawal denies etoh use, but has previous ED visit for etoh intoxication unable to reach family for collateral info improving with phenobarbitol -continue phenobarbital protocol -s/p IV thiamine (TID x 2 days) hypokalemia improved. hypertension BP improved if no improvement, may need to add additional agent - continue prazosin - monitor blood pressure closely Mood - continue Effexor polysubstance abuse denies active drug use tox screen + for fentanyl, marijuana - continue Suboxone - addiction med following dvt ppx - mechanical devices code status - full code attending: I saw patient and discussed finding with midlevel provider and i agree with the above <Jasen Yusuf MD - Last Filed: 08/20/21 16:24> Quality Stroke Does the patient have a stroke diagnosis?: No <TATI Loving - Last Filed: 08/01/21 11:15> VTE Prior VTE?: No <TATI Loving - Last Filed: 08/01/21 11:15> VTE Risk Level:: Medical - moderate - high <TATI Loving - Last Filed: 08/01/21 11:15> VTE Device Contraindication: N/A - Device Ordered <TATI Loving - Last Filed: 08/01/21 11:15> VTE Drug Contraindication: Treatment Not Indicated <TATI Loving - Last Filed: 08/01/21 11:15>
[2021-08-01] MEDS: vancomycin HCL 1,250 MG in 0.9 % Sodium Chloride 250 ML 270 MG IV ×2 (13:19→21:32)
--- NOTE | 2021-08-01 13:59 | MHC.CM.PN ---
EMR REVIEWED, PER HOSPITALIST PLAN FOR ABD CT AND BRAIN CT TODAY, NO PLAN FOR D/C TODAY, CM WILL CONT TO FOLLOW D/C NEEDS. D/C PLAN: [facility] FOLLOWING, [facility] FOR TRANSPORT.
[2021-08-01] MEDS: SODIUM CHLORIDE 0.9% IV (18:35)
[2021-08-01] MEDS: DAPTOMYCIN IV (18:35)
[2021-08-01 20:30] LABS: Vancomycin Trough 13.3 mcg/mL (10.0-20.0)
[2021-08-01] MEDS: PHENobarbitaL 15 MG TABLET PO (21:31)
[2021-08-01] MEDS: Sennosides 8.6 MG TABLET PO (21:31)
[2021-08-01] MEDS: Tamsulosin HCL 0.4 MG CAPSULE PO (21:32)
[2021-08-01] MEDS: traZODone HCL 100 MG TABLET 200 MG PO (21:32)
[2021-08-02] VITALS (8 sets, daily range): BP systolic 124–152; BP diastolic 72–100; PULSE 74–90; RESP 17–20; TEMP 36.1–36.9; O2SAT 91–98
[2021-08-02] MEDS: 0.9 % Sodium Chloride Flush 3 ML SYRINGE IVFLUSH ×2 (00:43→09:01)
[2021-08-02] MEDS: HYDROmorphone HCl 2 MG/ML VIAL 1 MG IVPUSH ×2 (03:43→08:54)
[2021-08-02] MEDS: vancomycin HCL 1,250 MG in 0.9 % Sodium Chloride 250 ML 270 MG IV (06:00)
[2021-08-02 06:04] LABS: Hematocrit 33.5 % (42.0-52.0); Hemoglobin 11.3 g/dl (14.0-18.0); Mean Corpuscular HGB Conc 33.7 g/dl (31.0-36.0); Mean Corpuscular Hemoglobin 31.7 pg (27.0-33.0); Mean Corpuscular Volume 93.8 fL (80.0-98.0); Mean Platelet Volume 8.6 fL (9.4-12.4); Platelet Count 301 X10*3/uL (160-400); Red Blood Count 3.57 X10*6/uL (4.60-5.80); Red Cell Distribution Width 12.9 % (11.0-16.0); White Blood Count 11.5 X10*3/uL (4.8-10.8)
[2021-08-02 06:32] LABS: Anion Gap 12 (12-20); Blood Urea Nitrogen 13 mg/dL (9-16); Calcium 7.8 mg/dL (8.4-10.2); Carbon Dioxide 32 mmol/L (22-29); Chloride 95 mmol/L (96-108); Creatinine Clr Calc Pharmacy 79.6; Estimated Glomerular Filt Rate > 60; Glucose Random 119 mg/dL (60-115); Potassium 3.5 mmol/L (3.3-5.1); Sodium 135 mmol/L (135-145)
[2021-08-02] MEDS: Milk of Magnesia 30 ML ORAL.SUSP PO (06:40)
[2021-08-02] MEDS: oxyCODONE HCl Immed Release 5 MG TABLET 10 MG PO ×2 (07:30→21:05)
[2021-08-02] MEDS: polyethylene glycoL 3350 17 GM POWD.PACK PO (08:57)
[2021-08-02] MEDS: Lactulose 20 GM/30 ML SOLUTION PO ×2 (08:57→18:04)
--- NOTE | 2021-08-02 08:57 | HO.PM.IMPN ---
Subjective Subjective Date of Service: 08/02/21 <TATI Loving - Last Filed: 08/02/21 09:57> 08/02/21 <Mega Rowley MD - Last Filed: 08/02/21 15:35> Interval History: seen and examined this morning having abdominal pain, no nausea, no vomiting no fever, chills <TATI Loving - Last Filed: 08/02/21 09:57> Review of Systems Review of Systems: Yes all other systems are reviewed and are negative <TATI Loving - Last Filed: 08/02/21 09:57> Constitutional Constitutional: Denies chills and Denies fever(s) <TATI Loving - Last Filed: 08/02/21 09:57> Cardiovascular Cardiovascular: Denies chest pain <TATI Loving Last Filed: 08/02/21 09:57> Respiratory Respiratory: Denies cough <TATI Loving - Last Filed: 08/02/21 09:57> Physical Exam Vital Signs: Vital Signs: Last Vital Signs Temp 97.4 F 08/02/21 07:58 Pulse 81 08/02/21 07:58 Resp 18 08/02/21 07:58 BP 136/100 H 08/02/21 07:58 Pulse Ox 91 L 08/02/21 07:58 Body Mass Index 24.3 <TATI Loving - Last Filed: 08/02/21 09:57> Const: Other: restless <TATI Loving - Last Filed: 08/02/21 09:57> General: awake and Physically active <TATI Loving - Last Filed: 08/02/21 09:57> Nutritional Appearance: well nourished <TATI Loving Last Filed: 08/02/21 09:57> Orientation/consciousness: patient oriented x3 <TATI Loving Last Filed: 08/02/21 09:57> HENMT: Head: Yes normocephalic and Yes atraumatic <TATI Loving Last Filed: 08/02/21 09:57> Eyes: Sclerae: sclerae normal <TATI Loving Last Filed: 08/02/21 09:57> Pupils: Equal, round and reactive pupils present <TATI Loving Last Filed: 08/02/21 09:57> Resp: Effort & Inspection: normal respiratory effort and no respiratory distress <TATI Loving - Last Filed: 08/02/21 09:57> Cardio: Rate: regular rate <TATI Loving Last Filed: 08/02/21 09:57> Rhythm: regular rhythm <TATI Loving Last Filed: 08/02/21 09:57> GI: Palpation (GI): Soft to palpation and nontender <TATI Loving - Last Filed: 08/02/21 09:57> Neuro: General: patient oriented x3 <TATI Loving - Last Filed: 08/02/21 09:57> Cranial nerves: Yes CN's II-XII intact bilaterally, Yes Equal, round and reactive pupils present and Yes Bilaterally intact EOM present <TATI Loving Last Filed: 08/02/21 09:57> Extrem: Other: moving all 4 extremities spontaneously; ambulating without assistance <TATI Loving Last Filed: 08/02/21 09:57> Objective Data Active Medications Acetaminophen (Acetaminophen 325 Mg Tablet) 650 mg PO Q6H PRN PRN Reason: Pain, Mild (Pain Scale 1-3) Last Admin: 07/29/21 13:29 Dose: 650 mg Documented by: ASCENCION Buprenorphine/Naloxone (Buprenorphine/Naloxone 12/3 Mg Film) 1 film SUBLINGUAL DAILY [facility] Last Admin: 08/01/21 09:20 Dose: 1 film Documented by: ASCENCION Docusate Sodium (Docusate Sodium 100 Mg Capsule) 100 mg PO DAILY [facility] Last Admin: 08/01/21 09:20 Dose: 100 mg Documented by: ASCENCION Hydromorphone HCl (Hydromorphone Hcl 2 Mg/Ml Vial) 1 mg IVPUSH Q4H PRN; Protocol PRN Reason: Pain, Severe (Pain Scale 7-10) Last Admin: 08/02/21 03:43 Dose: 1 mg Documented by: GERONIMO Daptomycin 580 mg/ Sodium (Chloride) 61.6 mls @ 99.982 mls/hr IV Q24H [facility] Last Infusion: 08/01/21 20:01 Dose: 0 mls/hr Documented by: GERONIMO Magnesium Hydroxide (Milk Of Magnesia 30 Ml Oral.Susp) 30 ml PO DAILY PRN PRN Reason: Constipation Last Admin: 08/02/21 06:40 Dose: 30 ml Documented by: GERONIMO Medication (No Benzodiazepines) 1 each MISCELLANE DAILY [facility] Ondansetron HCl (Ondansetron Hcl 4 Mg/2 Ml Vial) 4 mg IVPUSH Q8H PRN PRN Reason: Nausea and Vomiting Last Admin: 07/28/21 02:18 Dose: 4 mg Documented by: CESARIO Oxycodone HCl (Oxycodone Hcl Immed Release 5 Mg Tablet) 10 mg PO Q4H PRN PRN Reason: Pain, Moderate (Pain Scale 4-6 Last Admin: 08/02/21 07:30 Dose: 10 mg Documented by: [facility] Pharmacy Consult (Consult Rx Vancomycin Dosing) 1 each MISCELLANE DAILY PRN PRN Reason: Consult order Phenobarbital (Phenobarbital 15 Mg Tablet) 15 mg PO DAILY [facility]; Protocol Stop: 08/05/21 09:01 Phenobarbital (Phenobarbital 15 Mg Tablet) 15 mg PO BID [facility]; Protocol Stop: 08/03/21 09:01 Last Admin: 08/01/21 21:31 Dose: 15 mg Documented by: GERONIMO Polyethylene Glycol (Polyethylene Glycol 3350 17 Gm Powd.Pack) 17 gm PO DAILY [facility] Last Admin: 08/01/21 09:18 Dose: Not Given Documented by: ASCENCION Non-Admin Reason: NPO Prazosin HCl (Prazosin Hcl 1 Mg Capsule) 2 mg PO BID [facility]; Protocol Last Admin: 08/01/21 21:30 Dose: 2 mg Documented by: GERONIMO Quetiapine Fumarate (Quetiapine Fumarate 25 Mg Tablet) 25 mg PO Q8H PRN PRN Reason: anxiety/restlessness Last Admin: 08/01/21 16:36 Dose: 25 mg Documented by: JACKELINE Senna (Sennosides 8.6 Mg Tablet) 8.6 mg PO BEDTIME [facility] Last Admin: 08/01/21 21:31 Dose: 8.6 mg Documented by: GERONIMO Sodium Chloride (0.9 % Sodium Chloride Flush 3 Ml Syringe) 3 ml IVFLUSH QSHIFT [facility] Last Admin: 08/02/21 00:43 Dose: 3 ml Documented by: GERONIMO Tamsulosin HCl (Tamsulosin Hcl 0.4 Mg Capsule) 0.4 mg PO BEDTIME [facility] Last Admin: 08/01/21 21:32 Dose: 0.4 mg Documented by: GERONIMO Trazodone HCl (Trazodone Hcl 100 Mg Tablet) 200 mg PO BEDTIME PRN PRN Reason: Insomnia Last Admin: 08/01/21 21:32 Dose: 200 mg Documented by: GERONIMO Venlafaxine HCl (Venlafaxine Hcl Er 37.5 Mg Cap.Er.24h) 37.5 mg PO DAILY [facility] Last Admin: 08/01/21 09:20 Dose: 37.5 mg Documented by: ASCENCION Venlafaxine HCl (Venlafaxine Hcl Er 150 Mg Cap.Er.24h) 150 mg PO DAILY [facility] Last Admin: 08/01/21 09:20 Dose: 150 mg Documented by: ASCENCION <TATI Loving - Last Filed: 08/02/21 09:57> Labs CBC & Chem 7: : 08/02/21 05:25 08/02/21 05:25 <TATI Loving - Last Filed: 08/02/21 09:57> Labs: Laboratory Results - last 24 hr 08/01/21 08/02/21 08/02/21 20:05 05:25 05:25 MCV 93.8 MCH 31.7 MCHC 33.7 RDW 12.9 Plt Count 301 MPV 8.6 L Absolute Nucleated RBC 0.000 Nucleated RBC % (auto) 0.0 Anion Gap 12 Estim Creat Clear Calc 79.6 Estimated GFR > 60 Random Glucose 119 H Calcium 7.8 L Vancomycin Trough 13.3 <TATI Loving - Last Filed: 08/02/21 09:57> Microbiology Microbiology Results: Microbiology 07/28/21 Unknown Gram Stain - Final Spine Routine Culture - Final Methicillin Res Staph Aureus Anaerobic Culture - Final 07/30/21 11:11 Blood Culture - Final Blood - Venous Methicillin Res Staph Aureus 07/30/21 11:09 Blood Culture - Final Blood - Venous Methicillin Res Staph Aureus 08/01/21 12:24 Blood Culture - Preliminary Blood - Venous Prelim: GPC Gram Stain only 07/28/21 Unknown Fungal Identification - Preliminary Spine No growth to date. 07/31/21 08:00 Blood Culture - Preliminary Blood - Venous Prelim: GPC Gram Stain only <TATI Loving - Last Filed: 08/02/21 09:57> Assessment and Plan (1) Abdominal pain: Status: Acute <TATI Loving - Last Filed: 08/02/21 09:57> (2) Opioid use disorder: Status: Acute <TATI Loving - Last Filed: 08/02/21 09:57> (3) Staphylococcus aureus bacteremia: Status: Acute <TATI Loving - Last Filed: 08/02/21 09:57> (4) Abscess in epidural space of lumbar spine: Status: Acute <TATI Loving - Last Filed: 08/02/21 09:57> Assessment and Plan: his is a 50-year-old male with past medical history of hypertension as well as IV drug use presents to the hospital with complaints of back pain found to have epidural abscess epidural abscess MRI lunbar spine showing: Significant irregular edema/enhancement of the right-sided L4-L5 facets. Associated right dorsal epidural collection and right paraspinal collection. 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 mild edema/enhancement of the right-sided L3-L4 and L5-S1 facets, the left-sided L4-L5 facets, and the posterior L4 vertebral body discussed with Neurosurgery at [facility] and stated the patient does not need any neuro surgical intervention at this time unless develops significant neurological deficit no neurological deficits at this time - continue IV vancomycin started 07/28 - s/p IR guided drainage -07/29 4mL of purulent material drained - fluid cultures growing MRSA - seen by neurology - no focal deficits found, no need for neurosurgical intervention - follow up lumbar spine MRI pending - wean IV narcotics persistent staph bacteremia r/t underlying epidural abscess -echo shows no evidence of vegitation -abx changed from vanco to daptomycin 08/01 abdominal pain may be r/t to constipation or referred pain from epidural abscess CT abdomen/pelvis with no acute pathology continue bowel regimen urinary retention flomax added repeat lumbar spine MRI pending delirium improving. still with intermittent agitation likely related to polysubstance withdrawal improving with phenobarbitol -continue phenobarbital protocol -s/p IV thiamine (TID x 2 days) hypokalemia improved. hypertension BP improved - continue prazosin - monitor blood pressure closely Mood - continue Effexor polysubstance abuse denies active drug use tox screen + for fentanyl, marijuana - continue Suboxone - addiction med following dvt ppx - mechanical devices code status - full code attending: dr. Rowley <TATI Loving - Last Filed: 08/02/21 09:57> Quality Stroke Does the patient have a stroke diagnosis?: No <TATI Loving - Last Filed: 08/02/21 09:57> VTE Prior VTE?: No <TATI Loving - Last Filed: 08/02/21 09:57> VTE Risk Level:: Medical - moderate - high <TATI Loving - Last Filed: 08/02/21 09:57> VTE Device Contraindication: N/A - Device Ordered <TATI Loving - Last Filed: 08/02/21 09:57> VTE Drug Contraindication: Treatment Not Indicated <TATI Loving - Last Filed: 08/02/21 09:57>
[2021-08-02] MEDS: Prazosin HCL 1 MG CAPSULE 2 MG PO ×2 (08:58→21:03)
[2021-08-02] MEDS: Docusate Sodium 100 MG CAPSULE PO (08:59)
[2021-08-02] MEDS: Venlafaxine HCl ER 37.5 MG CAP.ER.24H PO (08:59)
[2021-08-02] MEDS: Venlafaxine HCl ER 150 MG CAP.ER.24H PO (08:59)
[2021-08-02] MEDS: PHENobarbitaL 15 MG TABLET PO ×2 (09:00→21:04)
[2021-08-02] MEDS: Ketorolac Tromethamine 30 MG/ML VIAL IVPUSH ×2 (12:18→18:04)
--- NOTE | 2021-08-02 15:42 | PM.DS ---
DS: Providers Provider Date of admission: 07/28/21 01:04 Primary care physician: [facility] Consults: 07/28/21 06:30 Consult to Infectious Diseases Routine Consulting Provider: Alissa Puente Reason for consultation: epidural abscess Has provider been notified: No Consult to Neurology Routine Consulting Provider: [facility] Reason for consultation: epidural abscess Has provider been notified: No 07/28/21 08:56 Addiction Medicine Routine Consulting Provider: Jazmyne Gale Reason for consultation: h/o drug use on suboxone DS: Diagnosis Discharge Diagnosis (1) Abdominal pain: Status: Acute (2) Opioid use disorder: Status: Acute (3) Staphylococcus aureus bacteremia: Status: Acute (4) Abscess in epidural space of lumbar spine: Status: Acute DS: Summary Hospital Course Hospital Course: Chief Complaint: Back pain 50-year-old male with past medical history of hypertension, IV drug abuser, depression anxiety who presents to the hospital with complaints of back pain.? Patient reports pain started about 4 days ago, localized to the middle back, nonradiating, constant, 8/10, no fever no chills, he has some tingling in his toes but no numbness weakness in arms or legs.? Denies any chest pain, no headache, no change in vision, no abdominal pain nausea or vomiting, no diarrhea constipation, no urinary symptoms and no lower extremity edema. On arrival to the ED patient hemodynamically Stable with a temperature of a 100.4?, otherwise vitals unremarkable Labs are significant for WBC count of 17.4, hemoglobin of 13.5, hematocrit 40.6, UA that is positive for blood and RBC otherwise labs unremarkable Lumbar spine MRI shows significant irregular edema/enhancement of the right-sided L4-L5 Juan, associated right dorsal epidural collection and right paraspinal collection.? Findings are consistent with lumbar facet joint septic arthritis and abscess formation.? Case was discussed with [facility] at [facility] Dr.Richard Last? who reviewed the MRI imaging, advise no neurosurgical intervention at this time, continue IV antibiotics and will only need surgical intervention if develops significant neurological deficits Patient started on IV antibiotics and will be admitted further manage Hospital course 50-year-old male with past medical history of hypertension as well as IV heroin use presents to the hospital with complaints of back pain found to have epidural abscess lumbar spine MRI , showed Significant irregular edema/enhancement of the right-sided L4-L5 facets. Associated right dorsal epidural collection and right paraspinal collection. 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 mild edema/enhancement ofthe right-sided L3-L4 and L5-S1 facets, the left-sided L4-L5 facets, and the posterior L4 vertebral body case discussed with [facility] at admission and at that time no neuro surgical intervention was recommended unless he develops significant neurological deficit, therefore patient admitted to medical floor and placed on IV vancomycin, and underwent IR guided drainage -07/29 4mL of purulent material drained - fluid cultures growing MRSA, blood culture grew Mrsa, echo showed no evidence of vegetation, due to persistent bacteremia antibiotic changed to IV daptomycin on 08/01 under recommendation of ID, patient continued to have lower back discomfort, on 08/01 patient noted to have intermittent urinary retention and urine incontinence, tingling sensation on left side of the groin,now resolved, his neuro exam otherwise remains stable, patient also noted to be constipated and placed on multiple stool softeners, MRI was attempted on 08/01 but patient was very restless, unable to stay still due to pain and unable to undergo this study therefore MRI repeated on 08/02, study is Severely limited, motion degraded exam found to have Interval progression in the extensive abscess within the dorsal aspect of the epidural space extending from the lower portion of the thoracic canal down to the sacrum. The most superior aspect of the collection is not included in the [id number]. There is mass effect on the cord and the cauda equina nerve roots. Neurosurgical consultation recommended. Therefore will transfer patient to [facility] for neurosurgical eval and treatment. In regard to polysubstance abuse patient previously was on Suboxone that has been discontinued due to acute pain management with IV Dilaudid and oxycodone , patient was initially delirious now that seems to have improved but continued to have intermittent agitation and restlessness likely due to opiate and possible alcohol withdrawal , however patient declines alcohol use . Drug toxicology screen was positive for fentanyl, marijuana and opiates IV Dilaudid has been discontinued and patient placed on Toradol and continued on oxycodone. For his hypertension he has been continued on prazosin For mood disorder continue Effexor Resolved issues hypokalemia Time Spent with Patient Time attestation: Total time spent providing and/or coordinating discharge services: Physical Exam Vital Signs: Vital Signs: Last Vital Signs Temp 97.8 F 08/02/21 11: Pulse 79 08/02/21 11:22 Resp 18 08/02/21 11:22 BP 134/75 08/02/21 11:22 Pulse Ox 94 08/02/21 11:22 Body Mass Index 24.3 General awake alert, less restless, no acute distress. Neck supple no JVD. CVS regular rate rhythm, Respiratory lungs clear to auscultation, no respiratory distress, no wheeze, no rhonchi. Gastrointestinal abdomen soft, nontender, bowel sounds audible, no no guarding , no rigidity. Extremities no edema. Back tenderness lower lumbar spine and lumbar paravertebral muscles, no swelling, no redness, no tenderness thoracic spine Neuro moving all 4 extremity, speech clear, normal sensation lower extremity, normal strength bilateral lower extremity, speech clear, awake alert x3, less restless Skin no rash Psych poor insight DS: Data Data Completed and Pending Labs on day of discharge: Laboratory Results - last 24 hr 08/01/21 08/02/21 08/02/21 20:05 05:25 05:25 WBC 11.5 H RBC 3.57 L Hgb 11.3 L Hct 33.5 L MCV 93.8 MCH 31.7 MCHC 33.7 RDW 12.9 Plt Count 301 MPV 8.6 L Absolute Nucleated RBC 0.000 Nucleated RBC % (auto) 0.0 Sodium 135 Potassium 3.5 Chloride 95 L Carbon Dioxide 32 H Anion Gap 12 BUN 13 D Creatinine 1.05 Estim Creat Clear Calc 79.6 Estimated GFR > 60 Random Glucose 119 H Calcium 7.8 L Vancomycin Trough 13.3 Preliminary micro results at discharge 08/01/21 12:26 Blood Culture - Preliminary Blood - Venous No growth after 24 hours. 08/01/21 12:24 Blood Culture - Preliminary Blood - Venous Prelim: GPC Gram Stain only 07/28/21 Unknown Fungal Identification - Preliminary Spine No growth to date. Discharge Plan Discharge Patient Disposition: Xfer Acute Care Hospital Discharge Diagnosis: Epidural abscess Referrals: [facility] [Primary Care Provider] - 2 days Discharge Medications: New phenobarbital 15 mg Tablet 15 mg PO BID Qty: 1 RF: 0 phenobarbital 15 mg Tablet 15 mg PO DAILY Qty: 1 RF: 0 oxycodone 5 mg Tablet 10 mg PO Q4H PRN (Reason: Pain, Moderate (Pain Scale 4-6) Qty: 10 RF: 0 polyethylene glycol 3350 17 gram Powder In Packet 17 g PO DAILY Qty: 30 RF: 0 sennosides [Senna Lax] 8.6 mg Tablet 8.6 mg PO BEDTIME Qty: 30 RF: 0 daptomycin 350 mg Recon Soln 580 mg IV Q24H Qty: 1 RF: 0 acetaminophen 325 mg Tablet 650 mg PO Q6H PRN (Reason: Pain, Mild (Pain Scale 1-3)) Qty: 1 RF: 0 ondansetron HCl (PF) 4 mg/2 mL Solution 4 mg IVPUSH Q8H PRN (Reason: Nausea And Vomiting) Qty: 1 RF: 0 quetiapine 25 mg Tablet 25 mg PO Q8H PRN (Reason: Anxiety/Restlessness) Qty: 1 RF: 0 tamsulosin 0.4 mg Capsule 0.4 mg PO BEDTIME Qty: 1 RF: 0 magnesium hydroxide [Milk of Magnesia] 400 mg/5 mL Suspension 30 ml PO DAILY PRN (Reason: Constipation) Qty: 200 RF: 0 ketorolac 30 mg/mL (1 mL) Solution 30 mg IVPUSH Q6H PRN (Reason: Pain, Moderate (Pain Scale 4-6) Qty: 1 RF: 0 docusate sodium [Colace] 100 mg capsule 200 mg PO BEDTIME Qty: 1 RF: 0 Continued venlafaxine 37.5 mg capsule,extended release 24hr 1 cap PO DAILY RF: 0 venlafaxine 150 mg capsule,extended release 24hr 1 cap PO DAILY RF: 0 trazodone 100 mg tablet 2 tab PO BEDTIME PRN (Reason: Insomnia) RF: 0 prazosin 2 mg capsule 1 cap PO BID RF: 0 Discontinued ibuprofen 600 mg tablet 600 mg PO Q6H PRN (Reason: pain) Qty: 20 RF: 0 acetaminophen 500 mg tablet 1,000 mg PO QID PRN (Reason: pain) Qty: 30 RF: 0 buprenorphine-naloxone [Suboxone] 12-3 mg film 1 strip sublingual DAILY RF: 0 Diet: regular diet Activity on Discharge: bedrest Stand Alone Forms: Patient Portal Discharge page Care Plan Goals: Continue IV daptomycin, phenobarb for alcohol withdrawal and pain medication continue bowel regimen Health Concerns: IV drug abuse, alcohol abuse and withdrawal, extensive epidural abscess with cord compression Plan of Treatment: Being transferred to [facility] due to worsening epidural abscess now extending to lower thoracic and sacrum, with mass effect on the cord and the cauda equina nerve roots Assessment: As above
--- NOTE | 2021-08-02 16:43 | MHC.CM.PN ---
CM AWAITING RESPONSE FROM [facility]. WILL FOLLOW-UP IN AM.
--- OUTSIDE RECORDS SUMMARY | 2021-08-02 17:01 | XMS_ITS ---
:1970 Author Name Silvia Fitzgerald Care Team Providers Name Role Phone Robby Baird MD Unavailable Unavailable Allergies, Adverse Reactions, Alerts Substance Reaction Status Criticality No Known Allergies Active No Informatio n Medications Medication Instructions Dosage Effective Dates Status Comment s (start - stop) Metamucil 3.4 1 packet Daily PRN - Active gram/5.4 gram oral as needed powder ibuprofen 400 mg take 1 tablet by 400 MG - Active tablet oral route every 8 - 12 hours as needed as needed Effexor XR 150 mg take 1 capsule by 150 MG - Active capsule,extended oral route every release day prazosin 2 mg take 2 capsule by - Active capsule oral route every day at bedtime trazodone 150 mg take 1 tablet by 150 MG - Active tablet oral route every day Nicotrol 10 mg USE DIRECTED - Active DC nicotine inhalation cartridge Nasa l spray multivitamin tablet take 1 tablet by - Active oral route every day with food folic acid 1 mg take 1 tablet by 1 MG - Active tablet oral route every day ketoconazole 2 % apply by topical 0.00 - Active topical cream route every day to the affected area(s) sofosbuvir 400 take 1 tablet by - Active g enotype 1a, mg-velpatasvir 100 oral route every noncirrhotic, mg tablet day for 12 wk treatment-e xper ienced with IFN/RBV Vivitrol 380 mg inject 4 milliliter 380 MG - Active intramuscular by intramuscular suspension,extended route every 4 weeks release Problems Condition Type Effective Dates Clinical Status Comments (start - stop) Hepatitis A immune Problem - Active (finding) Hepatitis B immune Problem - Active (finding) Depressive disorder Problem - Active (finding) Chronic hepatitis C Problem - Active took 12 wk of (finding) 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 d as of 06/28/20 Tobacco user Problem - Active (finding) Posttraumatic stress Problem - Active disorder (finding) Neck pain Problem - Active (finding) Chronic alcoholism in Problem - Active remission (finding) Hearing loss Problem - Active (finding) Visual impairment Problem - Active (finding) Anxiety Problem - Active (finding) Hepatitis C antibody Problem - Active test positive (finding) Tinea corporis Problem - Active (finding) Tobacco dependence Problem - Active syndrome (finding) Pain in thumb Problem Active (finding) Seborrheic dermatitis Problem Active (finding) Foot pain Problem Active (finding) Hepatic fibrosis Problem Active Fibrosure F 3 (finding) (12/31/18), TE F2-F3 (01/29/19)Needs lifelong US q6m o to screen for HCCLast US 01/29/19 Advance Directives Directive Yes / No Effective Date File Name No Information Encounters Encounter Practice Location Reason(s) For Diagnoses Date Provider Pro viders Description Visit Copied on Encounter [facility] No [facility] Information Formerly [facility], [place], 230 230 [facility], [place], [place], [address], [id number] [place]. , [place] tel:[phone] tel:[phone] [facility] No Name David. Health Information [address] [place] [address] [facility], [address] [place], [address], [facility]. [place], tel:[phone] , [place] tel:+ [phone] [facility] leg swelling, No [facility] abdominal Information [facility] (chief 1 [employer] 230 complaint) 230 [facility], St, [place], [place], [place], [id number], , [place]. tel:+ tel:[phone] [facility] chronic No [facility] Telemedicine foot/ankle Information Dae[place]. [address] Center, swelling 1 [employer] [address], [facility], complaint)tel [place], [place], [place] ([place], [address], [place], complaint) [place]. [id number] tel:+[phone] , [place] tel:+ [phone] [facility] Constipation No [facility] Telemedicine (chief Information [facility], complaint)Art 1 [employer] [address] [facility], (chief [place], [place], complaint)HDF [place], ([place], [address], [id number] complaint) [place]. , [place] tel:+ [phone] [facility] HCV televisit No [facility] Telemedicine (chief Information [facility]. [place], complaint) 0 230 [employer] 230 [place], [address], [place], [place]. [id number] tel:+ , [place] tel:+ [phone] [facility] No [facility] Information Natalie. Center, 0 230 [employer] [address], [facility], [place], [place], [address], [place], [place]. [id number] tel:+[phone] , [place] tel:+ [phone] [facility] Discharge FU No [facility] (chief Information Natalie. [place], complaint)Pha 0 [address] [employer] [address], [facility], (chief [place], [place], [address], [place], [place]. [id number] tel:[phone] , [place] tel:+ [phone] [facility] HCV (chief No [facility] complaint) Information [place]. [place], 0 230 [employer] 230 [facility], [place], [address], [place], [place]. [id number] tel:+[phone] , [place] tel:+ [phone] [facility] F/u (chief No [facility] complaint)Pha Information Silvia Samano. [place], rmacy HDF 9 230 [facility], 230 (chief [facility], complaint) [place], [address], [place], [place]. [id number] tel:+[phone] , [place] tel:+ [phone] [facility] chronic hep C No Name [facility] (chief Information 230 [facility], complaint) 9 [facility], [address] [place], [address], [place], . [place], tel:+ [phone] , [place] tel:+ [phone] [facility] SUB MD Intake No [facility] (chief Information [place]. [address] [place] [address], complaint) 8 [facility], [address] [place], [place], [place], [id number], [place], [place]. [id number] tel:+[phone] , [place] tel:+ [phone] [facility] Establish No [facility] (chief Information [facility], complaint) 8 230 [facility], 230 [facility], [place], [address], [place], [place]. [id number] tel:+[phone] , [place] tel:+ [phone] Family History Family Member Type Diagnosis Age At Onset No Information Immunizations Vaccine Date Status Comments COVID-19 Moderna administered Source: Other R egistry Flu-IIV4, p-free administered Source: Other R egistry COVID-19 Moderna administered Source: Other R egistry Tdap administered Source: Other Re gistry Tdap administered Source: Other Re gistry Payers Payer name Insurance type Covered green party ID Authorization(s ) Chari Mayo [id number] Social History Type Description Quantity Date Captured Comments Sex Male Smoking Status No Information Chief Complaint And Reason For Visit No Information Reason For Referral Reason For Referral Plan Of Treatment Date Type Action Status Goal Tobacco cessation counseling com pleted Goal Tobacco cessation counseling com pleted Goal Dietary management education, gu idance, and counseling completed Referral <paragraph xmlns= urn:[email or web address]-org:v3 > ordered Ordered:
<content ID='Ordere dReferral_0' xmlns='urn:[email or web address]-org:v3'>US Soft Tissue</content>
</p aragraph> Referral <paragraph xmlns= urn:hl7-org:v3 > ordered Ordered:
<content ID='Ordere dReferral_1' xmlns='urn:[email or web address]-org:v3'>US Leg Ve nous Doppler Bilateral</content>
</par agraph> Referral <paragraph xmlns= urn:hl7-org:v3 >Referred ordered To:
Occupational Therapy<br/ > Ordered:
<content ID='Ordere dReferral_2' xmlns='urn:[email or web address]-org:v3'>Referrals : Occupational Therapy. Evaluate and treat</content>
</pa ragraph> Referral <paragraph xmlns= urn:hl7-org:v3 > ordered Ordered:
<content ID='Ordere dReferral_3' xmlns='urn:[email or web address]-org:v3'>Referrals : [facility]</content>
</paragraph> Referral <paragraph xmlns= urn:hl7-org:v3 > ordered Ordered:
<content ID='Ordere dReferral_4' xmlns='urn:[email or web address]-org:v3'>Referrals : Ophthalmology. Evaluate and treat</content>< br/></paragraph> Referral <paragraph xmlns= urn:hl7-org:v3 > ordered Ordered:
<content ID='Ordere dReferral_5' xmlns='urn:[email or web address]-org:v3'>Santos Haley MD -[facility] : Family Medicine (related to Chronic hepatitis C without hepa tic coma)</content>
</paragra ph> Referral <paragraph xmlns= urn:hl7-org:v3 >Referred ordered To:
Santos Haley MD
[address] [place] [address]
[place], [address]
[phone]
Ordered:
<content ID='Ordere dReferral_6' xmlns='urn:[email or web address]-org:v3'>Referrals : [facility]opathic Physicians : Family Medicine. Santos Haley MD. Evaluate and treat</content>
</paragraph& #62; Referral <paragraph xmlns= urn:hl7-org:v3 > ordered Ordered:
<content ID='Ordere dReferral_7' xmlns='urn:[email or web address]-org:v3'>Infectiou s Disease (related to Chronic hepatitis C without hepa tic coma)</content>
</paragraph> Referral <paragraph xmlns= urn:hl7-org:v3 > ordered Ordered:
<content ID='Ordere dReferral_8' xmlns='urn:[email or web address]-org:v3'>Referrals : Infectious Disease. Evaluate and treat</content><br/ ></paragraph> Referral <paragraph xmlns= urn:hl7-org:v3 > ordered Ordered:
<content ID='Ordere dReferral_9' xmlns='urn:[email or web address]-org:v3'>Devon Stark -[facility] : F amily Medicine (related to Alcohol dependence i n remission)</content>
</pa ragraph> Referral <paragraph xmlns= urn:hl7-org:v3 >Referred ordered To:
Physical Therapy
Or dered:
<content ID='OrderedReferral_10' xmlns='urn:[email or web address]-org:v3'>Referrals : Physical Therapy. Evaluate and treat</content><br/ ></paragraph> Referral <paragraph xmlns= urn:hl7-org:v3 >Referred ordered To:
Mariangel Palomino OD
[address]
[place], [address]<br/&am p;#[phone]
Ordered:
<content ID='Ordere dReferral_11' xmlns='urn:hl7-org:v3'>Referrals : [facility] Providers : Um Rn . Mariangel Palomino OD. Evaluate and treat</content><br/ ></paragraph> Referral <paragraph xmlns= urn:7-org:v3 >Referred ordered To:
O[facility]Shik[facility] Temple
[address]
[place], [id number]
[phone]
Ordered:
<content ID='Ordere dReferral_12' xmlns='urn:[email or web address]-org:v3'>Referrals : [facility]opathic [facility] Osteopathic Physicians : Family Medicine. Shari Stark. Evaluate and treat</content>
</paragr aph> Referral <paragraph xmlns= urn:hl7-org:v3 > ordered Ordered:
<content ID='Kapil Dos Santos_13' xmlns='urn:[email or web address]-org:v3'>Referrals : Service Dispatcher. Evaluate and treat</content>< br/></paragraph> History Of Present Illness Encounter Date Complaint History Of Present I llness leg swelling, abdominal mass leg swelling, abdominal This 50 year old male with a h/o depression mass (comments) PTSD c/o bilateral l eg swelling and abdominal mass x 3 w eeks. Patient noted after hospital disch arge 3 weeks ago (rhabdomyolysis) per sistent swelling of both lower extremiti es. Denies calf pain denies chest pain no r sob. Patient had televisit yesterday and labs were ordered still awaiting resul ts. Bladimir also noted hard mass on the óscar es of his abdomen, non painful movable x 3 weeks. Denies any changes in bowel mov ement. Denies any lymph nodes enlarged. Octavia es fever chills nor night sweats. Denies SOB. televisit A complete assessmen t and plan is detailed in the note, all of which were conducted remotely using [employer] technology by phone. Patient gave verbal consent to be seen in this manner, and alessio ntity was verbally confirmed with 2 alessio ntifiers at the start of the visit. Jacqueline t is in a confidential location during visi t. Provider was located in an Ambulatory exa room/outside the office at a secure l ocation during the visit. chronic foot/ankle swelling Pt was cade d with a c/o B/L feet/ankle swelling both at th e same time all the way up to my legs since he was discharged from the hospital.Pt octavia es any redness, warmth. Denies any SOB, CP.P er records, pt was hospitalized from -03/18 due to rhabdomyolysis, left arm cellulitis/laceratio n.Hx of chronic hepatitis C, liver f ibrosis, PTSD, anxiety, smoking.Also, 6 bum ps on love handle X 1 week ago. About dim e sizes, non-tender, non-redness. Not wa rmth to touch. HDF Patient was hospital ized on [facility] from 03/15-03/18 due to rha bdomyolysis, left arm cellulitis/laceratio n. Constipation Pertinent negatives include abdominal pain, anorexia, back pain, black tarry stools, bleeding with bowel movement, bloating, change in appetite, change in stool caliber, change in s tool pattern, flatulence, nausea, pain with passing stool, sedentary act ivity, vomiting, weight gain and weight loss . Arthralgias Location: bilateral ankle (medial). Context: there is no injury. The pain is aggravated by moveme nt. There are no relieving factors. Pertinent negatives include bruising, cr epitus, decreased mobility, difficulty initiating sleep, joint instability, j oint tenderness, limping, locking, no cturnal awakening, nocturnal pain, numb ness, popping, spasms, swelling, tingling i n the arms, tingling in the legs and weaknes s. HCV televisit 49yo M s/p 12 wk of Epclusa, completed 02/20/20, no missed d osesgenotype 1a, baseline viral load 1.2 million, Fibrosure F3, TE F2-V7rmuvu as documented by undetectable viral l aod 06/24/20is patient was identified as me eting criteria for a primary care televis it rather than an in person visit due to public health concerns around COVID-19. A c omplete assessment and plan is detailed in the note, all of which were conducted remot eliel using virtual visit technology. Patient identity was verbally confirmed with 2 alessio ntifiers at the start of the visit. Jacqueline moreno was located home during the visit. Farideh chanel was located in:[ x ] an ambulatory e xam room in the office [ ] a secure locat ion outside the office during the televi sit. Pharmacy [facility] Pharmacist Discharge NotePharmacist Bijal Prakash [facility] recruiting internship Viktoriya Darden met with patient EP today to discuss recent discharge from [place] s/p discharge. Medication reconcili ation was performed.All medications and nieves ges were reviewed with the patient, patient verbalized understanding and me dication list was updated.Information regarding new prescriptions after hospital discharge was provided to the derick ent: Medications discontinued include : N/A Medications added in clude: N/A Medication changes include: Neelima desai reports dosage decrease in trazodon e from 200mg at bedtime to 150mg bedtime whi ch was verified upon pharmacy refill info rmation.The following changes are required to be made to EHR: N/ADischarge paperwo rk not available however patient repo rts continuation of same medications wit h exception to trazodone. Discharge FU Patient is a 49 y/o male who presents for hospital discharge F U from [facility] i n which he spent 2 weeks for detox. Frank valadez reports he is currently doing well . He admits to improved sleep with Trazodone . [facility] in [place] . He works about 40 hours a week and att ends bible studies and then has free time a t 7pm. He is working on getting psychiatric care with [facility]. He last saw a mental health provider 1 week before . He had SA last July in which he tried to OD while on Vivitrol. His last Vivitrol treatm ent was October 22. Unclear if he will c ontinue Vivitrol program.Patient c/ o intermittent thumb pain and swelling fo llowing amputation several years. He de nies recent trauma but admits to using it s ubstantially.Patient also c/ o facial bob thema and scaling. He applies OTC hydrocor tisone which is helpful.Patient has no further concerns at this time. HCV 49yo M pt of Dr Fitzgerald presents for consultation for HCV treatment.[facility] [place] x 16 days.Date of diagnos is: 2004Mode of transmission: JOVANI. pt recalls sharing a needle once in 1998 or thereaboutsPrior treatment: [place] IFN [place] [facility] [place] and r esponded but did not achieve SVRGenotype: 1a (03/22/18)Last viral load: 1.2 million ()Fibrosis: Fibrosure F3 (12/31/18 ), TE F2-F3 (01/29/19)APRI: 0.473 (12/31/18)FIB-4: 1.26 (12/31/18)Cirrhosis: N /AHCC screening (if advanced fibrosis F3 OR cirrhosis F4): overdue- last US was 01/29/19HAV immune: yes (12/31/18)HBV status: yes (12/31/18), anti-HBc negative (12/31/18)HIV status: negative (03/22/18)Extrahepati c HCV manifestations: noneOther significan t comorbidities: depression, opioid + alcohol use disorder now on Vivitrol, PTS DEtOH use: pastDrug use: pastSmokin/ 2 ppd, declines NRTPPI/H2RA/antacid use: denies F/u Patient is a 48 y/o male who presents to the clinic today for f/u after being d/c from halfway on 06/11/19 . Was in for 4 months. Denies having any co mplications upon release. Was not guru ated for hepatitis while in halfway. Recei mac influenza IZ in halfway. Pt continues o n Vivitrol program at a clinic in [facility] ([facility] Gemma frias has a therapist and is working on ge tting a psychiatrist. Currently living in a program. Smokes 1 pack of cigarettes p er day. Denies using e-cigarettes or vapi ng. Is interested in quitting. Smokes THC . Not drinking alcohol or using any other i llicit drugs. Denies any issues with medi cations. The patient has no further earnest rns at this time. Pharmacy HDF Pharmacist Discharge NotePharmacist Mary Ann Robin met with josephine Mrai today to discuss recent di [facility] from [facility] . Medication reconciliation was p erformed.All medications and nieves ges were reviewed with the patient, patient verbalized understanding and me dication list was updated.Information regarding new prescriptions after hospital discharge was provided to the derick ent:Medications discontinued include :- N/AMedications added include: - N/AMedica tion changes include:- N/AThe following mario nges are required to be made to EHR: - Stop Chantix per patient- Update doses for pra zosin (now 4mg) and trazodone (now 200mg ) per med recPatient preferred pharmacy: [place] [phone] g of medications was assessed during the visit today. Patient interview: - Nicholas wright medication list: currently taking pra zosin 4mg HS, trazodone 200mg HS, and venlaf axine ER 150mg daily which is confirmed b y [facility]. Reports getting [facility]rol injections at [facility] and last dose was on 07/03/19 . Denies using Chantix.- Reports sm oking 1 ppd and is interested in quitti ng, but does not want Chantix due to concu rrent psych meds. Is willing to try any o ther option.- Reports seeing [facility] for psych and has an appointment with them tomorrow.R ecommendations:- Please send a prescription for nicotine 21mg patch to use daily for 6 w eeks (then can taper down to 14mg x 2 wee ks and 7mg x 2 weeks). chronic hep C He states the sympto ms are chronic. Patient has chronic hep C. Shakira mora was treated in the past with interferon based regimen and it did not work, he has a remote history of heroin use and has a recent remission of alcohol use, he is l iving in a [facility] in [place] an d he is treated with monthly Vivitrol at a clinic in [place] ([facility]). He has been doing well, dep ression is well controlled, he likes the place where he is living, he is not dr inking and does not have cravings, he is interested in quitting smoking. SUB MD Intake Today: Fentanyl NEGR N Intake 03/21/18:. Vivitrol Intake Pt h ere for MAT Program intake with RNPCP: Dr. Coburn Patient appointment: 03/21/18UTOX: negative for all [id number] year old male presents for intake into MAT program. Interested in Vivitrol. Received his 1st injection on 03/01/18 at [facility] on [place]. Pritesh mora for next injection on 03/29/18 on the left b divine. Denies adverse effects to marisa franz. Currently on probation for 18 months. Pt states that he has more of a dri nking problem vs substance abuse prob leoncio. History of PTSD, pt reports that he a ttempted suicide a month and a half ago using a large amount of heroin. States h e overdosed and was revived with Narcan. Was admitted to [facility] psych unit for one week, and was arrest ed immediately after discharge due to milagro lation of his probation. Spent 1 month in halfway, and was released this . Drug Use HistoryHeroin: first use age 32, IV route, reports frequency of use was 1-2 times per year, last use a sun ago. Pt reports that he attempting s uicide using heroin. Cocaine: first use a ge 16, reports only using a few times, l ast use age 19.Marijuana: first use age 11, daily, last use 7 months ago Pre scription Opioids: reports abusing Oxyc odone, Vicodin. Prescribed at age 32 , used IV and PO, last use > 10 years agoTo bacco: first use age 9, 20 cigarettes/da y, received script for Nicotine patches tod ay from PCP.Alcohol: 10, a pint of Vodka daily, last use a month ago.Other: denies us e of other substancesPrior Subs tance Use Disorder Treatment HistoryDet ox:Has been in detox 2 times in his lifetim e. Last time at detox was a few years ago. OD:History of two OD. Recent OD a month ag o. Pt reports that he was taking Prozac wh ich made him suicidal. States he intentiona lly overdose with heroin in order to h ave his doctor change his psych meds. Den ies SI/HI at this time. States he will neve r reattempt suicide, because he doesn't h ave a reason to.Methadone:No.Bupr enorphine/Naloxone:No.N altrexone:Received h is 1st Vivitrol inj. on 03/01/18. Denies side effects or adverse reaction to medicati on.Mental Health HistoryMental health conditions: anxiety, MDD, PTSDPsych meds: Effexor, Trazodone, PrazosinPsych hospit alization history: [facility], 1.5 months ago, [address]: referred for intensive outpatient servicesPsych prescriber: noneHeal th statusMedical conditions: Hep C, P TSD, alcohol dependenceHep C stat us: Hx of Hepatitis C without hepatic coma . Pt reports completing treatment a few years ago, but re-diagnosed with He p C during his incarceration [facility]. PCP sent for additional labs. In terested in treatment again.HIV status: un known, sent for labsHep A & B immunization s tatus: unknown, sent for labsPending surg eries: noneFamily history: unknownPain Denies having chronic pain.SocialLiving Si tuation: lives with edmundo, his mom, and brother at a house his mom owns.Family/Kids : Never , has 2 children ages: 26, 2 5Education: 8th gradeEmployment: cur rently unemployed, looking for workInca rceration history: 6 arrests. Currently on probation for 18 months. Goals: Sta y clean and happy. OBAT program reviewed wit h patient including requirements to keep medical and OBAT appointments, urine toxicology screens and possible random call backs with medication counts. He / She is aware of his/her responsibility for t heir buprenorphine/naloxo ne medication. Informed to keep medication i n a safe undisclosed place, out of reach of children and visitors. Informed t o keep medication in a locked storage unit. OBAT consent and contract read to and reviewed with the patient. Patient vol untarily signed and dated consent. A classified copy control clerk y was given to the patient and the orig inal was placed in the chart. Opportunity f or questions provided.Discussed b uprenorphine/naloxone - reviewed medication, potential side effects including elevations in liver function tests, potential let suleman interaction with benzodiazepines and ETOH, safe administration and s torage. Patient verbalized understan ding of information provided and wishes to proceed.-Discussed naltrexone - reviewe d potential side effects and adverse reactions, including injection site react ions, allergy, pneumonia, increase in liver function tests, depression, d izziness, opioid blocking effects, an d decreased opioid tolerance. Patients need to be opiate free for an extended gisella od of time prior to administration to pr event precipitated or spontaneous withdraw al. Patients who are naltrexone naive joseph l begin with the tablet form of the medicati on to assess for side effects or adverse r eactions. Written info provided to patient. Patient verbalized understanding and wi shes to initiate naltrexone treatment .-Contact numbers of medical providers an d wallet size extended-release nal trexone (Vivitrol) information given to pt. Patient instructed to give these cards to family members or friends in case derick del castillo is ever hospitalized. Jacqueline t also provided with naltrexone medical a lert bracelet and/or dog tag. Labs ordere d by PCP.Overdose education provided. Pt aware of how to access a naloxone re scue kit.Plan: Intake appointment with pro vider Dr. Zambrano given for . Pt ex pressed understanding and agreement with terry alexander of care.AllergiesIngred ientReaction (Severity)Medication NameCommentNO KNOWN ALLERGIESReviewed, n o changes.Office Services completed t his visitOrderDetailsCom pleted ByInterpretationResu ltGiving encouragement to exerciseJayson Da vilaDietary management education, guidance, and counselingJayson DavilaOffice Labs co mpleted this visitOrderCompleted ByInterpretationResu ltUrine Drug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
[2021-08-02] MEDS: SODIUM CHLORIDE 0.9% IV (18:05)
[2021-08-02] MEDS: DAPTOMYCIN IV (18:05)
[2021-08-02] MEDS: Sennosides 8.6 MG TABLET PO (21:04)
[2021-08-02] MEDS: traZODone HCL 100 MG TABLET 200 MG PO (21:05)
[2021-08-02] MEDS: Tamsulosin HCL 0.4 MG CAPSULE PO (21:05)
[2021-08-03] MEDS: Ketorolac Tromethamine 30 MG/ML VIAL IVPUSH ×3 (00:37→12:03)
[2021-08-03] MEDS: 0.9 % Sodium Chloride Flush 3 ML SYRINGE IVFLUSH ×2 (01:26→08:15)
[2021-08-03] MEDS: oxyCODONE HCl Immed Release 5 MG TABLET 10 MG PO ×4 (03:31→17:32)
[2021-08-03 04:00] VITALS: BP 122/82; PULSE 89; RESP 17; TEMP 36.4; O2SAT 98
[2021-08-03 07:43] VITALS: BP 150/92; PULSE 82; RESP 18; TEMP 36.6; O2SAT 96
[2021-08-03] MEDS: PHENobarbitaL 15 MG TABLET PO ×3 (08:14→10:16)
[2021-08-03 08:15] VITALS: BP 150/92; PULSE 82
[2021-08-03] MEDS: polyethylene glycoL 3350 17 GM POWD.PACK PO (08:15)
[2021-08-03] MEDS: Prazosin HCL 1 MG CAPSULE 2 MG PO (08:15)
[2021-08-03] MEDS: Docusate Sodium 100 MG CAPSULE PO (08:15)
[2021-08-03] MEDS: Venlafaxine HCl ER 150 MG CAP.ER.24H PO (08:15)
[2021-08-03] MEDS: Venlafaxine HCl ER 37.5 MG CAP.ER.24H PO (08:15)
--- NOTE | 2021-08-03 08:39 | MHC.CM.PN ---
CM MET W/PT'S TO [facility]ERMINE [facility], VACCINE STATUS AND DETERMINE DETOX/PSYCHIATRIC HX, PT ABLE TO ANSWER QUESTIONS HOWEVER PAIN INCREASING SO INTERVIEW WAS CUT SHORT AND RN NOTIFIED PT REQUESTING PAIN MEDS. PT DID REPORT BEING FULLY VACCINATED AND USING RIGHT CHOICE [facility] CLINIC IN [place], PT ALSO REPORTED HE WILL COMPLETE HCP HE WILL NEED SNF FOR IV ABX TX. PT NAMING HIS SISTER LIYAH COTTO [phone] AND NO ALTERNATE AT THIS TIME, PT ASKED CM TO CONTACT HIS MOTHER TO FIND OUT DETAILS OF COVID VACCINE AND GAVE CM VERBAL PERMISSION TO GIVE PT'S MOTHER INFORMATION ON PT'S D/C PLAN. CONTACT INFORMATION IN COMPUTER IS INCORRECT FOR PT'S MOTHER SO CM CONTACTED PT'S SISTER AND WAS GIVEN CORRECT CONTACT INFO FOR PT'S MOTHER AND BROTHER. CM SPOKE W/PT'S BROTHER DAYAMI AT 8:43am D/T HIM ANSWERING PHONE AND HE WAS UNABLE TO LOCATE VACCINE CARD. MOTHER: SHY LO [phone] BROTHER: DAYAMI ATKINSON [phone] COVID VACCINE: WILL MEET W/PT AGAIN WHEN PAIN IS IN BETTER CONTROL
--- NOTE | 2021-08-03 09:16 | PM.DS ---
DS: Providers Provider Date of Service: 08/03/21 Date of admission: 07/28/21 01:04 Primary care physician: [facility] Consults: 07/28/21 06:30 Consult to Infectious Diseases Routine Consulting Provider: Alissa Puente Reason for consultation: epidural abscess Has provider been notified: No Consult to Neurology Routine Consulting Provider: [facility] Reason for consultation: epidural abscess Has provider been notified: No 07/28/21 08:56 Addiction Medicine Routine Consulting Provider: Jazmyne Gale Reason for consultation: h/o drug use on suboxone DS: Diagnosis Discharge Diagnosis (1) Abdominal pain: Status: Resolved (2) Opioid use disorder: (3) Staphylococcus aureus bacteremia: Status: Acute (4) Abscess in epidural space of lumbar spine: Status: Acute DS: Summary Hospital Course Hospital Course: Chief Complaint: Back pain 50-year-old male with past medical history of hypertension, IV drug abuser, depression anxiety who presents to the hospital with complaints of back pain.? Patient reports pain started about 4 days ago, localized to the middle back, nonradiating, constant, 8/10, no fever no chills, he has some tingling in his toes but no numbness weakness in arms or legs.? Denies any chest pain, no headache, no change in vision, no abdominal pain nausea or vomiting, no diarrhea constipation, no urinary symptoms and no lower extremity edema. On arrival to the ED patient hemodynamically Stable with a temperature of a 100.4?, otherwise vitals unremarkable Labs are significant for WBC count of 17.4, hemoglobin of 13.5, hematocrit 40.6, UA that is positive for blood and RBC otherwise labs unremarkable Lumbar spine MRI shows significant irregular edema/enhancement of the right-sided L4-L5 Juan, associated right dorsal epidural collection and right paraspinal collection.? Findings are consistent with lumbar facet joint septic arthritis and abscess formation.? Case was discussed with Neurosurgery at [facility] Dr.Richard Last? who reviewed the MRI imaging, advise no neurosurgical intervention at this time, continue IV antibiotics and will only need surgical intervention if develops significant neurological deficits Patient started on IV antibiotics and will be admitted further manage Hospital course 50-year-old male with past medical history of hypertension as well as IV heroin use presents to the hospital with complaints of back pain found to have epidural abscess lumbar spine MRI , showed Significant irregular edema/enhancement of the right-sided L4-L5 facets. Associated right dorsal epidural collection and right paraspinal collection. 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 mild edema/enhancement ofthe right-sided L3-L4 and L5-S1 facets, the left-sided L4-L5 facets, and the posterior L4 vertebral body case discussed with Neurosurgery at [facility] at admission and at that time no neuro surgical intervention was recommended unless he develops significant neurological deficit, therefore patient admitted to medical floor and placed on IV vancomycin, and underwent IR guided drainage -07/29 4mL of purulent material drained - fluid cultures growing MRSA, blood culture grew Mrsa, echo showed no evidence of vegetation, due to persistent bacteremia antibiotic changed to IV daptomycin on 08/01 under recommendation of ID, patient continued to have lower back discomfort, on 08/01 patient noted to have intermittent urinary retention and urine incontinence, tingling sensation on left side of the groin,now resolved, his neuro exam otherwise remains stable, patient also noted to be constipated and placed on multiple stool softeners, MRI was attempted on 08/01 but patient was very restless, unable to stay still due to pain and unable to undergo this study therefore MRI repeated on 08/02, study is Severely limited, motion degraded exam found to have Interval progression in the extensive abscess within the dorsal aspect of the epidural space extending from the lower portion of the thoracic canal down to the sacrum. The most superior aspect of the collection is not included in the [id number]. There is mass effect on the cord and the cauda equina nerve roots. Neurosurgical consultation recommended. Therefore will transfer patient to [facility] for neurosurgical eval and treatment. In regard to polysubstance abuse patient previously was on Suboxone that has been discontinued due to acute pain management with IV Dilaudid and oxycodone , patient was initially delirious now that seems to have improved but continued to have intermittent agitation and restlessness likely due to opiate and possible alcohol withdrawal , however patient declines alcohol use . Drug toxicology screen was positive for fentanyl, marijuana and opiates IV Dilaudid has been discontinued and patient placed on Toradol and continued on oxycodone. For his hypertension he has been continued on prazosin For mood disorder continue Effexor Resolved issues hypokalemia Time Spent with Patient Time attestation: Total time spent providing and/or coordinating discharge services: Discharge coordination time: Greater than 30 minutes Quality: Stroke Does the patient have a stroke diagnosis?: No Physical Exam Vital Signs: Vital Signs: Last Vital Signs Temp 97.8 F 08/03/21 07:43 Pulse 82 08/03/21 08:15 Resp 18 08/03/21 07:43 BP 150/92 H 08/03/21 08:15 Pulse Ox 96 08/03/21 07:43 Body Mass Index 24.3 General: AO X 3, in severe distress Resp: CTA bilateral, no accessory muscles used CVS: S1,S2,RRR GI: soft, non tender, non distended Neuro: motor grossly intact, alert Psych: appropriate affect, appropriate insight DS: Data Data Completed and Pending Labs on day of discharge: Preliminary micro results at discharge 08/01/21 12:26 Blood Culture - Preliminary Blood - Venous No growth after 24 hours. 08/01/21 12:24 Blood Culture - Preliminary Blood - Venous Prelim: GPC Gram Stain only 07/28/21 Unknown Fungal Identification - Preliminary Spine No growth to date. Discharge Plan Discharge Patient Disposition: [facility] Hospital Discharge Diagnosis: Epidural abscess Referrals: [facility] [Primary Care Provider] - 2 days Discharge Medications: New quetiapine 25 mg Tablet 25 mg PO Q8H PRN (Reason: Anxiety/Restlessness) Qty: 1 RF: 0 sennosides [Senna Lax] 8.6 mg Tablet 8.6 mg PO BEDTIME Qty: 30 RF: 0 acetaminophen 325 mg Tablet 650 mg PO Q6H PRN (Reason: Pain, Mild (Pain Scale 1-3)) Qty: 1 RF: 0 polyethylene glycol 3350 17 gram Powder In Packet 17 g PO DAILY Qty: 30 RF: 0 ketorolac 30 mg/mL (1 mL) Solution 30 mg IVPUSH Q6H PRN (Reason: Pain, Moderate (Pain Scale 4-6) Qty: 1 RF: 0 magnesium hydroxide [Milk of Magnesia] 400 mg/5 mL Suspension 30 ml PO DAILY PRN (Reason: Constipation) Qty: 200 RF: 0 tamsulosin 0.4 mg Capsule 0.4 mg PO BEDTIME Qty: 1 RF: 0 phenobarbital 15 mg Tablet 15 mg PO BID Qty: 1 RF: 0 phenobarbital 15 mg Tablet 15 mg PO DAILY Qty: 1 RF: 0 oxycodone 5 mg Tablet 10 mg PO Q4H PRN (Reason: Pain, Moderate (Pain Scale 4-6) Qty: 10 RF: 0 ondansetron HCl (PF) 4 mg/2 mL Solution 4 mg IVPUSH Q8H PRN (Reason: Nausea And Vomiting) Qty: 1 RF: 0 daptomycin 350 mg Recon Soln 580 mg IV Q24H Qty: 1 RF: 0 docusate sodium [Colace] 100 mg capsule 200 mg PO BEDTIME Qty: 1 RF: 0 Continued venlafaxine 37.5 mg capsule,extended release 24hr 1 cap PO DAILY RF: 0 venlafaxine 150 mg capsule,extended release 24hr 1 cap PO DAILY RF: 0 trazodone 100 mg tablet 2 tab PO BEDTIME PRN (Reason: Insomnia) RF: 0 prazosin 2 mg capsule 1 cap PO BID RF: 0 Discontinued ibuprofen 600 mg tablet 600 mg PO Q6H PRN (Reason: pain) Qty: 20 RF: 0 acetaminophen 500 mg tablet 1,000 mg PO QID PRN (Reason: pain) Qty: 30 RF: 0 buprenorphine-naloxone [Suboxone] 12-3 mg film 1 strip sublingual DAILY RF: 0 Discharge Orders: Discharge Order (Routine); Ordered 08/03/21 Ordered By: Vin Suarez Diet: advance to usual diet and regular diet Activity on Discharge: As tolerated Stand Alone Forms: Patient Portal Discharge page Care Plan Goals: Continue IV daptomycin, phenobarb for alcohol withdrawal and pain medication continue bowel regimen Health Concerns: IV drug abuse, alcohol abuse and withdrawal, extensive epidural abscess with cord compression Plan of Treatment: Being transferred to [facility] due to worsening epidural abscess now extending to lower thoracic and sacrum, with mass effect on the cord and the cauda equina nerve roots Assessment: As above
[2021-08-03] MEDS: HYDROmorphone HCl 1 MG/ML SYRINGE IVPUSH ×2 (09:29→15:17)
--- NOTE | 2021-08-03 11:09 | MHC.CM.PN ---
PT WILL TXFR TO [facility] ONCE BED AVAILABLE, REFERRAL PLACED TO [facility] FOR BLS TRANSPORT
[2021-08-03 12:00] VITALS: BP 121/76; PULSE 82; RESP 18; TEMP 37.4; O2SAT 97
[2021-08-03 13:21] LABS: HCV Log PCR 3.05 Log IU/mL (NOT DETECTED); HepC Viral Load 1120 IU/mL (NOT DETECTED)
--- NOTE | 2021-08-03 14:48 | HO.PM.IMPN ---
Subjective Subjective Date of Service: 08/03/21 Interval History: cc: back pain interval history: back pain Cardiovascular Cardiovascular: Reports no additional cardiovascular complaints Respiratory Respiratory: Reports no additional respiratory complaints Physical Exam Vital Signs: Vital Signs: Last Vital Signs Temp 99.3 F 08/03/21 12:00 Pulse 82 08/03/21 12:00 Resp 18 08/03/21 12:00 BP 121/76 08/03/21 12:00 Pulse Ox 97 08/03/21 12:00 Body Mass Index 24.3 General: AO X 3, no acute distress Resp: CTA bilateral, no accessory muscles used CVS: S1,S2,RRR GI: soft, non tender, non distended Neuro: motor grossly intact, alert Psych: appropriate affect, appropriate insight Objective Data Active Medications Acetaminophen (Acetaminophen 325 Mg Tablet) 650 mg PO Q6H PRN PRN Reason: Pain, Mild (Pain Scale 1-3) Last Admin: 07/29/21 13:29 Dose: 650 mg Documented by: ASCENCION Docusate Sodium (Docusate Sodium 100 Mg Capsule) 100 mg PO DAILY [facility] Last Admin: 08/03/21 08:15 Dose: 100 mg Documented by: BRENDA Hydromorphone HCl (Hydromorphone Hcl 1 Mg/Ml Syringe) 1 mg IVPUSH Q4H PRN; Protocol PRN Reason: moderate pain Last Admin: 08/03/21 09:29 Dose: 1 mg Documented by: BRENDA Daptomycin 580 mg/ Sodium (Chloride) 61.6 mls @ 99.982 mls/hr IV Q24H [facility] Last Infusion: 08/02/21 18:43 Dose: 0 mls/hr Documented by: DOMINGO Ketorolac Tromethamine (Ketorolac Tromethamine 30 Mg/Ml Vial) 30 mg IVPUSH Q6H PRN PRN Reason: Pain, Moderate (Pain Scale 4-6 Last Admin: 08/03/21 12:03 Dose: 30 mg Documented by: BRENDA Magnesium Hydroxide (Milk Of Magnesia 30 Ml Oral.Susp) 30 ml PO DAILY PRN PRN Reason: Constipation Last Admin: 08/02/21 06:40 Dose: 30 ml Documented by: GERONIMO Medication (No Benzodiazepines) 1 each MISCELLANE DAILY [facility] Ondansetron HCl (Ondansetron Hcl 4 Mg/2 Ml Vial) 4 mg IVPUSH Q8H PRN PRN Reason: Nausea and Vomiting Last Admin: 07/28/21 02:18 Dose: 4 mg Documented by: CESARIO Oxycodone HCl (Oxycodone Hcl Immed Release 5 Mg Tablet) 10 mg PO Q4H PRN PRN Reason: Pain, Moderate (Pain Scale 4-6 Last Admin: 08/03/21 13:12 Dose: 10 mg Documented by: ASCENCION Pharmacy Consult (Consult Rx Vancomycin Dosing) 1 each MISCELLANE DAILY PRN PRN Reason: Consult order Phenobarbital (Phenobarbital 15 Mg Tablet) 15 mg PO DAILY [facility]; Protocol Stop: 08/05/21 09:01 Last Admin: 08/03/21 09:34 Dose: 15 mg Documented by: BRENDA Polyethylene Glycol (Polyethylene Glycol 3350 17 Gm Powd.Pack) 17 gm PO DAILY [facility] Last Admin: 08/03/21 08:15 Dose: 17 gm Documented by: BRENDA Prazosin HCl (Prazosin Hcl 1 Mg Capsule) 2 mg PO BID [facility]; Protocol Last Admin: 08/03/21 08:15 Dose: 2 mg Documented by: BRENDA Quetiapine Fumarate (Quetiapine Fumarate 25 Mg Tablet) 25 mg PO Q8H PRN PRN Reason: anxiety/restlessness Last Admin: 08/01/21 16:36 Dose: 25 mg Documented by: JACKELINE Senna (Sennosides 8.6 Mg Tablet) 8.6 mg PO BEDTIME [facility] Last Admin: 08/02/21 21:04 Dose: 8.6 mg Documented by: GERONIMO Sodium Chloride (0.9 % Sodium Chloride Flush 3 Ml Syringe) [facility] Last Admin: 08/03/21 08:15 Dose: 3 ml Documented by: BRENDA Tamsulosin HCl (Tamsulosin Hcl 0.4 Mg Capsule) 0.4 mg PO BEDTIME [facility] Last Admin: 08/02/21 21:05 Dose: 0.4 mg Documented by: GERONIMO Trazodone HCl (Trazodone Hcl 100 Mg Tablet) 200 mg PO BEDTIME PRN PRN Reason: Insomnia Last Admin: 08/02/21 21:05 Dose: 200 mg Documented by: GERONIMO Venlafaxine HCl (Venlafaxine Hcl Er 37.5 Mg Cap.Er.24h) 37.5 mg PO DAILY [facility] Last Admin: 08/03/21 08:15 Dose: 37.5 mg Documented by: BRENDA Venlafaxine HCl (Venlafaxine Hcl Er 150 Mg Cap.Er.24h) 150 mg PO DAILY [facility] Last Admin: 08/03/21 08:15 Dose: 150 mg Documented by: BRENDA Labs CBC & Chem 7: 08/02/21 05:25 08/02/21 05:25 Labs: Laboratory Results - last 24 hr 07/28/21 23:39 Hep C Viral Load 1120 H Hep C Viral Load Log 3.05 H Microbiology Microbiology Results: Microbiology 08/01/21 12:26 Blood Culture - Preliminary Blood - Venous No growth after 48 hours. 08/01/21 12:24 Blood Culture - Preliminary Blood - Venous Staphylococcus aureus 07/31/21 08:05 Blood Culture - Final Blood - Venous Methicillin Res Staph Aureus 07/31/21 08:00 Blood Culture - Final Blood - Venous Methicillin Res Staph Aureus Assessment and Plan (1) Abdominal pain: Status: Resolved (2) Opioid use disorder: (3) Staphylococcus aureus bacteremia: Status: Acute (4) Abscess in epidural space of lumbar spine: Status: Acute Assessment and Plan: his is a 50-year-old male with past medical history of hypertension as well as IV drug use presents to the hospital with complaints of back pain found to have epidural abscess epidural abscess MRI lunbar spine showing: Significant irregular edema/enhancement of the right-sided L4-L5 facets. Associated right dorsal epidural collection and right paraspinal collection. 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 mild edema/enhancement of the right-sided L3-L4 and L5-S1 facets, the left-sided L4-L5 facets, and the posterior L4 vertebral body discussed with Neurosurgery at [facility] and stated the patient does not need any neuro surgical intervention at this time unless develops significant neurological deficit no neurological deficits at this time -IV vancomycin started 07/28 - s/p IR guided drainage -07/29 4mL of purulent material drained - fluid cultures growing MRSA - seen by neurology - no focal deficits found - lumbar spine MRI Interval progression in the extensive abscess within the dorsal aspect of the epidural space extending from the lower portion of the thoracic canal down to the sacrum. plan to trasnfer to [facility] for neurosuregery eval persistent staph bacteremia due to underlying epidural abscess -echo shows no evidence of vegitation -abx changed from vanco to daptomycin 08/01 follwo up repeat cultures abdominal pain may be r/t to constipation or referred pain from epidural abscess CT abdomen/pelvis with no acute pathology continue bowel regimen urinary retention resovled delirium improving. still with intermittent agitation likely related to polysubstance withdrawal improving with phenobarbitol -continue phenobarbital protocol -s/p IV thiamine (TID x 2 days) hypokalemia improved. hypertension BP improved - continue prazosin - monitor blood pressure closely Mood - continue Effexor polysubstance abuse denies active drug use tox screen + for fentanyl, marijuana dvt ppx - mechanical devices code status - full code Quality Stroke Does the patient have a stroke diagnosis?: No VTE Prior VTE?: No VTE Risk Level:: Medical - moderate - high VTE Device Contraindication: N/A - Device Ordered VTE Drug Contraindication: Treatment Not Indicated
== END 2021-08-03 17:45 | disposition short-term general hospital (02) | DRG 49 ==
LOC: HO.ED 07-28 00:40 → HO.EDOVER 07-28 01:14 → HO.S3 07-29 03:46
PROVIDERS: Emergency Medicine; Internal Medicine; Physician Assistant Medical; Radiology Diagnostic Radiology; Admitting Provider Internal Medicine; Emergency Provider Internal Medicine; PCP Internal Medicine; Visit Provider Internal Medicine
PROC: 009U3ZZ Drainage of Spinal Canal, Percutaneous Approach (ICD-10-PCS; principal; 2021-07-28 13:30)
DX: G06.1 Intraspinal abscess and granuloma (principal); F05 Delirium due to known physiological condition; R78.81 Bacteremia; F11.20 Opioid dependence, uncomplicated; F17.210 Nicotine dependence, cigarettes, uncomplicated; Z71.6 Tobacco abuse counseling; F19.10 Other psychoactive substance abuse, uncomplicated; I10 Essential (primary) hypertension; Y90.3 Blood alcohol level of 60-79 mg/100 ml; E87.6 Hypokalemia; R33.9 Retention of urine, unspecified; F10.239 Alcohol dependence with withdrawal, unspecified; F11.23 Opioid dependence with withdrawal; B95.62 Methicillin resistant Staphylococcus aureus infection as the cause of diseases classified elsewhere; F41.9 Anxiety disorder, unspecified; Z86.19 Personal history of other infectious and parasitic diseases; F32.A Depression, unspecified; Z20.822 Contact with and (suspected) exposure to COVID-19; Z79.899 Other long term (current) drug therapy
CPT/HCPCS: 10160; 36415; 70450; 72158; 74177; 80048; 80076; 80202; 80307; 81001; 81003; 83605; 83735; 85014; 85018; 85025; 85027; 85610; 87040; 87071; 87073; 87077; 87102; 87116; 87147; 87186; 87205; 87389; 87522; 87635; 93005; 93306; 96365; 96367; 96372; 96375; 99152; 99153; 99285; A9585; C1729; C1758; J0696; J0878; J1170; J1200; J1885; J2060; J2270; J2405; J2543; J2560; J3370; J3411

== ENCOUNTER 2022-02-05 19:25 | Emergency (ER) | payer MEDICAID, SELFPAY ==
--- NOTE | ~2022-02-05 | CT_ITS ---
EXAMINATION: CT ABDOMEN AND PELVIS WITHOUT CONTRAST CLINICAL INFORMATION: Right inguinal hernia COMPARISON: 08/01/2021 TECHNIQUE: Multidetector volumetric imaging was performed from the superior aspect of the liver through the pubic symphysis. Sagittal and coronal reformatted images were obtained on the technologist's workstation. This CT examination was performed using dose optimization techniques as appropriate, variously including the following: *Automated exposure control *Adjustment of mA and/or kV according to patient size (this includes techniques or standardized protocols for targeted exams where dose is matched to indication/reason for exam; i.e. extremities or head) *Use of iterative reconstruction technique DLP: 545 mGy-cm FINDINGS: LUNG BASES: Left basilar atelectasis. Elevated left hemidiaphragm. The visualized cardiac structures are unremarkable. LIVER, GALLBLADDER, AND BILIARY TREE: The liver is normal in size, shape, and attenuation. No focal hepatic lesion or biliary ductal dilatation is present. The gallbladder is unremarkable with no evidence of radiopaque gallstones, gallbladder wall thickening, or obvious pericholecystic inflammatory changes. PANCREAS: Unremarkable. SPLEEN: Unremarkable. ADRENAL GLANDS: Unremarkable. KIDNEYS AND URETERS: The kidneys are normal in size, shape, and attenuation. No hydronephrosis, hydroureter, or calculi seen. No perinephric stranding. BLADDER: Unremarkable. GASTROINTESTINAL TRACT: The stomach is decompressed. Normal caliber small bowel. No obstruction. No colonic wall thickening or inflammatory change. Moderate colonic stool burden. Normal appendix. No free air or free fluid. ABDOMINAL WALL: No significant hernia is appreciated. LYMPH NODES: Normal. VASCULAR: Unremarkable. PELVIC VISCERA: The prostate and seminal vesicles are unremarkable. OSSEOUS STRUCTURES: No acute or suspicious osseous abnormality. Moderate degenerative change throughout the spine. Degenerative changes noted at the hips CT/CT abdomen pelvis wo con IMPRESSION: No abdominal wall hernia. No inflammatory changes. Moderate colonic stool burden. Fleischner guidelines were followed.
[2022-02-05 19:34] VITALS: BP 122/82; PULSE 80; RESP 18; TEMP 36.9; O2SAT 95; BMI 25.7
[2022-02-05 21:40] LABS: MANUAL DIFF FLAG NO
[2022-02-05 21:46] LABS: Basophils Percent Auto 0.3 % (0-2); Eosinophils Absolute Auto 0.3 X10*3/uL (0.0-0.4); Hematocrit 36.8 % (42.0-52.0); Hemoglobin 12.3 g/dl (14.0-18.0); Imm Gran Abs Auto 0.01 X10*3/uL (0.00-0.03); Imm Gran Pct Auto 0.2 % (0.0-0.4); Lymphocytes Absolute Auto 2.5 X10*3/uL (1.2-4.9); Lymphocytes Percent Auto 40.1 % (20-40); Mean Corpuscular HGB Conc 33.4 g/dl (31.0-36.0); Mean Corpuscular Hemoglobin 31.7 pg (27.0-33.0); Mean Corpuscular Volume 94.8 fL (80.0-98.0); Mean Platelet Volume 8.8 fL (9.4-12.4); Monocytes Absolute Auto 0.4 X10*3/uL (0.1-1.2); Monocytes Percent Auto 6.8 % (2-11); Neutrophils Absolute Auto 3.1 x10*3/uL (2.0-8.3); Neutrophils Percent Auto 48.6 % (45-73); Platelet Count 207 X10*3/uL (160-400); Red Blood Count 3.88 X10*6/uL (4.60-5.80); Red Cell Distribution Width 15.1 % (11.0-16.0); White Blood Count 6.3 X10*3/uL (4.8-10.8)
[2022-02-05 21:49] LABS: Appearance Urine CLEAR; Color Urine YELLOW; Glucose Urine UA NEG (NEG); Leukocyte Esterase Urine NEG (NEG); Nitrite Urine NEG (NEG); Specific Gravity - Urine 1.025 (1.005-1.025); Urine Blood NEG (NEG); Urine Ketones NEG (NEG); Urine Protein NEG (NEG-TRACE)
[2022-02-05 21:57] LABS: Alanine Aminotransferase 22 U/L (0-40); Albumin Level 4.1 g/dL (3.5-5.0); Alkaline Phosphatase 86 U/L (39-117); Anion Gap 13 (12-20); Aspartate Amino Transferase 21 U/L (5-37); Bilirubin Direct 0.2 mg/dL (0.0-0.5); Bilirubin Total 0.5 mg/dL (0.0-1.0); Blood Urea Nitrogen 15 mg/dL (9-16); Calcium 9.4 mg/dL (8.4-10.2); Carbon Dioxide 27 mmol/L (22-29); Chloride 102 mmol/L (96-108); Creatinine Clr Calc Pharmacy 82.2; Estimated Glomerular Filt Rate > 60; Glucose Random 87 mg/dL (60-115); Potassium 4.5 mmol/L (3.3-5.1); Sodium 137 mmol/L (135-145); Total Protein 7.6 g/dL (6.5-8.0)
--- NOTE | 2022-02-05 23:29 | ED.ABDPAIN ---
HPI - Abdominal Pain General Chief Complaint: Abdominal Pain Stated Complaint: Groin pain Time Seen by Provider: 02/05/22 23:29 Source: patient Mode of arrival: ambulatory Limitations: no limitations History of Present Illness HPI narrative: Patient was straining to move his bowel 3 days ago noticed small lump in the right inguinal area reducible no nausea no vomiting. No abdominal pain no fever chills no urinary symptoms Related Data Home Medications Medication Instructions Recorded Confirmed prazosin 2 mg capsule 1 cap PO BID 07/28/21 07/28/21 trazodone 100 mg tablet 2 tab PO BEDTIME PRN 07/28/21 07/28/21 venlafaxine 150 mg 1 cap PO DAILY 07/28/21 07/28/21 capsule,extended release 24 hr venlafaxine 37.5 mg 1 cap PO DAILY 07/28/21 07/28/21 capsule,extended release 24 hr Previous Rx's Medication Instructions Recorded acetaminophen 325 mg tablet 650 mg PO Q6H PRN #1 tab 08/02/21 daptomycin 350 mg intravenous 580 mg IV Q24H #1 ea 08/02/21 solution docusate sodium 100 mg capsule 200 mg PO BEDTIME #1 cap 08/02/21 (Colace) ketorolac 30 mg/mL (1 mL) 30 mg IVPUSH Q6H PRN #1 ml 08/02/21 injection solution magnesium hydroxide 400 mg/5 mL 30 ml PO DAILY PRN #200 ml 08/02/21 oral suspension (Milk of Magnesia) ondansetron HCl (PF) 4 mg/2 mL 4 mg (2 mL) IVPUSH Q8H PRN #1 ml 08/02/21 injection solution oxycodone 5 mg tablet 10 mg PO Q4H PRN #10 tab 08/02/21 phenobarbital 15 mg tablet 15 mg PO BID #1 tab 08/02/21 phenobarbital 15 mg tablet 15 mg PO DAILY #1 tab 08/02/21 polyethylene glycol 3350 17 gram 17 g PO DAILY #30 ea 08/02/21 oral powder packet quetiapine 25 mg tablet 25 mg PO Q8H PRN #1 tab 08/02/21 sennosides 8.6 mg tablet (Senna 8.6 mg PO BEDTIME #30 tab 08/02/21 Lax) tamsulosin 0.4 mg capsule 0.4 mg PO BEDTIME #1 cap 08/02/21 polyethylene glycol 3350 17 17 g PO DAILY #510 g 02/06/22 gram/dose oral powder (Miralax) Allergies Allergy/AdvReac Type Severity Reaction Status Date / Time No Known Allergies Allergy Unverified 06/10/20 15:11 [No Known Allergies*] Review of Systems Review of Systems Yes all other systems are reviewed and are negative [facility] Past Medical History Medical History Anxiety Depression HTN (hypertension) Intravenous drug abuse in remission Opioid use disorder Social History Social History Household Members: Family Housing: House Alcohol intake: never Patient Tobacco Use Status: Current everyday Tobacco user Tobacco use type: Cigarette Use of substances other than those prescribed or required for medical reasons: No Substance Use Type: Marijuana Advance Directives: No service: No Current occupational status: unemployed Physical Exam ED Vital Signs: Vital Signs - 24 hr 02/05/22 19:34 02/05/22 23:57 Temperature 98.4 F 98.1 F Pulse Rate 80 49 L Respiratory Rate 18 16 Blood Pressure 122/82 105/53 L Pulse Oximetry 95 98 BMI result Body Mass Index 25.7 Appearance: Alert. Oriented X3. No acute distress. Neck: Normal inspection. Neck supple. CVS: Normal heart rate and rhythm. Pulses normal. Respiratory: No respiratory distress. Equal air entry bilateral, no wheezing/rales/rhonchi Abdomen: Soft and nontender. Bowel sounds are present, no mass palpable, no CVA tenderness small right direct inguinal hernia reducible nontender: Testicles normal Skin: Skin warm and dry. Normal skin color. Normal skin turgor. Extremities: No lower extremity edema. No calf tenderness Neuro: Oriented X 3. MDM - Abdominal Pain MDM Narrative Medical decision making narrative: CT scan negative for significant hernia discharge patient home advised to follow with surgeon Lab Data Attestation: I reviewed the patient's lab results. Result diagrams: 02/05/22 21:32 02/05/22 21:32 Labs: Lab Results 02/05/22 02/05/22 02/05/22 Range/Units 21:32 21:32 21:32 WBC 6.3 (4.8-10.8) X10*3/uL RBC 3.88 L (4.60-5.80) X10*6/uL Hgb 12.3 L (14.0-18.0) g/dl Hct 36.8 L (42.0-52.0) % MCV 94.8 (80.0-98.0) fL MCH 31.7 (27.0-33.0) pg MCHC 33.4 (31.0-36.0) g/dl RDW 15.1 (11.0-16.0) % Plt Count 207 D (160-400) X10*3/uL MPV 8.8 L (9.4-12.4) fL Immature Gran % (Auto) 0.2 (0.0-0.4) % Neut % (Auto) 48.6 (45-73) % Lymph % (Auto) 40.1 H (20-40) % Richardson % (Auto) 6.8 (2-11) % Eos % (Auto) 4.0 (0-4) % Baso % (Auto) 0.3 (0-2) % Lymph # (Auto) 2.5 (1.2-4.9) X10*3/uL Richardson # (Auto) 0.4 (0.1-1.2) X10*3/uL Eos # (Auto) 0.3 (0.0-0.4) X10*3/uL Baso # (Auto) 0.0 (0.0-0.2) X10*3/uL Abs Immat Gran (auto) 0.01 (0.00-0.03) X10*3/uL Absolute Neuts (auto) 3.1 (2.0-8.3) x10*3/uL Absolute Nucleated RBC 0.000 (0.0-0.012) X10*3/uL Nucleated RBC % (auto) 0.0 (0.0-0.2) /100WBC Sodium 137 (135-145) mmol/L Potassium 4.5 D (3.3-5.1) mmol/L Chloride 102 (96-108) mmol/L Carbon Dioxide 27 (22-29) mmol/L Anion Gap 13 (12-20) BUN 15 (9-16) mg/dL Creatinine 0.87 (0.5-1.4) mg/dL Estim Creat Clear Calc 82.2 Estimated GFR > 60 Random Glucose 87 (60-115) mg/dL Calcium 9.4 D (8.4-10.2) mg/dL Total Bilirubin 0.5 (0.0-1.0) mg/dL Direct Bilirubin 0.2 (0.0-0.5) mg/dL AST 21 D (5-37) U/L ALT 22 (0-40) U/L Alkaline Phosphatase 86 (39-117) U/L Total Protein 7.6 (6.5-8.0) g/dL Albumin 4.1 D (3.5-5.0) g/dL Urine Color YELLOW Urine Appearance CLEAR Urine pH 6.0 (5.0-8.0) Ur Specific E[place]rick 1.025 (1.005-1.025) Urine Protein NEG (NEG-TRACE) MG/DL Urine Glucose (UA) NEG (NEG) MG/DL Urine Ketones NEG (NEG) MG/DL Urine Blood NEG (NEG) Urine Nitrite NEG (NEG) Ur Leukocyte Esterase NEG (NEG) Discharge Plan Discharge Clinical Impression: Inguinal hernia of right side without obstruction or gangrene Patient Disposition: Home, Self-Care Instructions: Inguinal Hernia (ED) Additional Instructions: Avoid straining/weightlifting Follow-up with surgeon for further evaluation treatment Report to ER if worsening of swelling or pain Stool softener daily as advised for constipation Prescriptions: New polyethylene glycol 3350 [Miralax] 17 gram/dose powder 17 g PO DAILY Qty: 510 0RF No Action venlafaxine 37.5 mg capsule,extended release 24hr 1 cap PO DAILY 0RF venlafaxine 150 mg capsule,extended release 24hr 1 cap PO DAILY 0RF trazodone 100 mg tablet 2 tab PO BEDTIME PRN (Reason: Insomnia) 0RF prazosin 2 mg capsule 1 cap PO BID 0RF quetiapine 25 mg Tablet 25 mg PO Q8H PRN (Reason: Anxiety/Restlessness) Qty: 1 0RF sennosides [Senna Lax] 8.6 mg Tablet 8.6 mg PO BEDTIME Qty: 30 0RF acetaminophen 325 mg Tablet 650 mg PO Q6H PRN (Reason: Pain, Mild (Pain Scale 1-3)) Qty: 1 0RF polyethylene glycol 3350 17 gram Powder In Packet 17 g PO DAILY Qty: 30 0RF ketorolac 30 mg/mL (1 mL) Solution 30 mg IVPUSH Q6H PRN (Reason: Pain, Moderate (Pain Scale 4-6) Qty: 1 0RF magnesium hydroxide [Milk of Magnesia] 400 mg/5 mL Suspension 30 ml PO DAILY PRN (Reason: Constipation) Qty: 200 0RF tamsulosin 0.4 mg Capsule 0.4 mg PO BEDTIME Qty: 1 0RF phenobarbital 15 mg Tablet 15 mg PO BID Qty: 1 0RF phenobarbital 15 mg Tablet 15 mg PO DAILY Qty: 1 0RF oxycodone 5 mg Tablet 10 mg PO Q4H PRN (Reason: Pain, Moderate (Pain Scale 4-6) Qty: 10 0RF ondansetron HCl (PF) 4 mg/2 mL Solution 4 mg IVPUSH Q8H PRN (Reason: Nausea And Vomiting) Qty: 1 0RF daptomycin 350 mg Recon Soln 580 mg IV Q24H Qty: 1 0RF docusate sodium [Colace] 100 mg capsule 200 mg PO BEDTIME Qty: 1 0RF Referrals: Dharmesh Irene MD [Physician] - 1 week
[2022-02-05 23:57] VITALS: BP 105/53; PULSE 49; RESP 16; TEMP 36.7; O2SAT 98
== END 2022-02-06 01:12 | disposition home or self-care (01) ==
PROVIDERS: Emergency Provider Internal Medicine; PCP Internal Medicine
DX: K40.90 Unilateral inguinal hernia, without obstruction or gangrene, not specified as recurrent (principal); I10 Essential (primary) hypertension
CPT/HCPCS: 36415; 74176; 80053; 80076; 81003; 82248; 85025; 99284

== ENCOUNTER 2022-02-07 13:16 | Emergency (ER) | payer MEDICAID, SELFPAY ==
[2022-02-07 15:04] VITALS: BP 100/89; PULSE 59; RESP 18; TEMP 35.9; O2SAT 97; BMI 27.4
[2022-02-07 16:00] VITALS: BP 127/80; PULSE 50; RESP 16; TEMP 36.7; O2SAT 98
--- NOTE | 2022-02-07 16:57 | ED_ITS ---
HPI - General Adult General Chief complaint: General Medical Stated complaint: hernia Time Seen by Provider: 02/07/22 16:57 Source: patient Mode of arrival: ambulatory Limitations: no limitations History of Present Illness HPI narrative: This is a 51-year-old male no significant medical history presenting to the emergency department with complaints of pain to his right groin pain x5 days. Patient tells me that he was diagnosed with a hernia yesterday here in the emergency department he is coming today because his pain is an 8/10 he cannot tolerate the pain anymore and he tells me he was not sent home on pain medication. Pain is intermittent in nature. He tells me he feels the hernia intermittently sliding in and out of his right testicle. He denies fevers, chills, nausea, vomiting, abdominal pain, changes in urination, changes in bowel habits, chest pain, shortness of breath. Onset (ago): day(s) (5) Location: right (groin) Radiation: non-radiation Severity: severe Severity scale (1-10): 8 Quality: aching and constant Pain Consistency: constant Relieving factors: none Exacerbating factors: none Associated symptoms: denies other symptoms Treatments prior to arrival: none Related Data Home Medications Medication Instructions Recorded Confirmed prazosin 2 mg capsule 1 cap PO BID 07/28/21 07/28/21 trazodone 100 mg tablet 2 tab PO BEDTIME PRN 07/28/21 07/28/21 venlafaxine 150 mg 1 cap PO DAILY 07/28/21 07/28/21 capsule,extended release 24 hr venlafaxine 37.5 mg 1 cap PO DAILY 07/28/21 07/28/21 capsule,extended release 24 hr Previous Rx's Medication Instructions Recorded acetaminophen 325 mg tablet 650 mg PO Q6H PRN #1 tab 08/02/21 daptomycin 350 mg intravenous 580 mg IV Q24H #1 ea 08/02/21 solution docusate sodium 100 mg capsule 200 mg PO BEDTIME #1 cap 08/02/21 (Colace) ketorolac 30 mg/mL (1 mL) 30 mg IVPUSH Q6H PRN #1 ml 08/02/21 injection solution magnesium hydroxide 400 mg/5 mL 30 ml PO DAILY PRN #200 ml 08/02/21 oral suspension (Milk of Magnesia) ondansetron HCl (PF) 4 mg/2 mL 4 mg (2 mL) IVPUSH Q8H PRN #1 ml 08/02/21 injection solution oxycodone 5 mg tablet 10 mg PO Q4H PRN #10 tab 08/02/21 phenobarbital 15 mg tablet 15 mg PO BID #1 tab 08/02/21 phenobarbital 15 mg tablet 15 mg PO DAILY #1 tab 08/02/21 polyethylene glycol 3350 17 gram 17 g PO DAILY #30 ea 08/02/21 oral powder packet quetiapine 25 mg tablet 25 mg PO Q8H PRN #1 tab 08/02/21 sennosides 8.6 mg tablet (Senna 8.6 mg PO BEDTIME #30 tab 08/02/21 Lax) tamsulosin 0.4 mg capsule 0.4 mg PO BEDTIME #1 cap 08/02/21 polyethylene glycol 3350 17 17 g PO DAILY #510 g 02/06/22 gram/dose oral powder (Miralax) naproxen 500 mg tablet 500 mg PO BID PRN #14 tab 02/07/22 Allergies Allergy/AdvReac Type Severity Reaction Status Date / Time No Known Allergies Allergy Verified 02/07/22 15:04 [No Known Allergies*] Review of Systems Review of Systems: Constitutional : No Weight loss, No Fever, No Chills, No Fatigue, No Malaise ENT/Mouth : No sore throat, No Rhinorrhea Eyes: No Eye Pain, No Swelling, No Redness Cardiovascular : No Chest Pain, No SOB, No Dyspnea on Exertion, No Orthopnea, No Edema, No Palpitations Respiratory : No Cough, No Sputum, No Wheezing Gastrointestinal : No Nausea, No Vomiting, No Diarrhea, No Constipation, No abdominal Pain, No Hematochezia, No Melena Genitourinary : No Dysuria, No Urinary Frequency, No Hematuria, Musculoskeletal : No joint pain, No Myalgias, No Joint Swelling Skin : No Skin Lesions, No rash Neuro : No Weakness, No Numbness, No Dizziness, No Headache Psych : No Anxiety/Panic, No Depression All other systems reviewed and are negative Yes all other systems are reviewed and are negative [facility] Past Medical History Attestation statement: The following information was validated with the patient. Source: old records reviewed and nursing notes reviewed Medical History Anxiety Depression Hernia HTN (hypertension) Intravenous drug abuse in remission Opioid use disorder Social History Social History Household Members: Family Housing: House Alcohol intake: never Patient Tobacco Use Status: Current everyday Tobacco user Tobacco use type: Cigarette Smoked in Last 30 Days: Yes Use of substances other than those prescribed or required for medical reasons: Yes Substance Use Type: Marijuana Substance Use Frequency: Daily Advance Directives: No Advance Directives Information Provided: No service: No Current occupational status: unemployed Physical Exam ED Vital Signs: Vital Signs - 24 hr 02/07/22 15:04 02/07/22 16:00 Temperature 96.6 F L 98.0 F Pulse Rate 59 50 Respiratory Rate 18 16 Blood Pressure 100/89 127/80 Pulse Oximetry 97 98 BMI result Body Mass Index 27.4 Vital signs stable Appearance: Alert.? Oriented X3.? No acute distress.? Head: Normocephalic, atraumatic, no step-offs or deformities Eyes: Pupils equal, round and reactive to light.? ENT: Pharynx normal.? Neck: Normal inspection.? Neck supple.? CVS: Normal heart rate and rhythm.? Pulses normal.? Respiratory: No respiratory distress.? Breath sounds normal.? Abdomen: Soft and nontender. Sensative exam: Testicles with normal lay, equal and symmetric, no or lumps or masses, no pain with palpation of scrotum, unable to palpate any inguinal hernias upon my examination. Skin: Skin warm and dry.? Normal skin color.? Normal skin turgor.? Extremities: No lower extremity edema.? No calf ttp. 5/5 strength to bilateral upper and lower extremities Back: No midline tenderness, no C-spine tenderness, full range of motion, no CVA tenderness bilaterally Neuro: Oriented X 3.? No motor deficit.? No sensory deficit. CN 2-12 intact Course Reevaluation(s) Reevaluation #1: Patient reiterates that his pain has been this bad ever since the hernia started. Pain is not changed from yesterday's pain. Patient given Toradol for pain/discomfort. Advised to follow-up with general surgery. Educated him on worrisome signs and symptoms. Patient's history and physical examination likely secondary to inguinal hernia however at this time unable to palpate 1. Unlikely that this is a strangulated/incarcerated hernia. Follow up instructions reviewed with patient. Comfortable with discharge home Time: 17:24 Medical Decision Making [facility] Narrative Medical decision making narrative: 1700 51-year-old male presents with 8/10 pain to his right groin diagnosed with an inguinal hernia yesterday. Reports the pain is intolerable and he needs something for pain. Denies nausea, vomiting, fevers, chills. Physical examination significant for small right direct inguinal hernia that is easily reducible and soft, unlikely that this hernia is incarcerated. Upon chart review it appears as though patient was seen here yesterday he was advised to avoid straining and weightlifting he was advised to follow-up with the surgeon for further evaluation/treatment and he was given a stool softener for constipation. Patient was not discharged home with pain medications. Yesterday patient had a CT of the abdomen and pelvis without contrast which did not show any abdominal wall hernia, no inflammatory changes it did show moderate colonic stool burden. Plan at this time is pain medication and follow-up with general surgery. Medical Records Medical records reviewed: Yes I reviewed the patient's medical records. Lab Data Lab results reviewed: Yes I reviewed the patient's lab results. Critical Care Time Critical Care Time Critical Care Time: No Discharge Plan Discharge Clinical Impression: Inguinal hernia of right side without obstruction or gangrene Patient Disposition: Home, Self-Care Additional Instructions: Take your medications as prescribed. If you were prescribed antibiotics today, it is important that you take your medication to their entirety, do not skip any doses, do not finish them early. Follow-up with your primary care provider this week. Follow-up with general surgery for further treatment/evaluation Return to the emergency department with new or worsening symptoms. Such as fevers, chills, chest pain, shortness of breath, nausea, vomiting, dizziness, headache, vision changes, lethargy, scrotal pain In case of emergency call 911 Please avoid straining. Avoid heavy lifting. Prescriptions: New naproxen 500 mg tablet 500 mg PO BID PRN (Reason: pain) Qty: 14 0RF Rx Instructions: Take with food No Action polyethylene glycol 3350 [Miralax] 17 gram/dose powder 17 g PO DAILY Qty: 510 0RF venlafaxine 37.5 mg capsule,extended release 24hr 1 cap PO DAILY 0RF venlafaxine 150 mg capsule,extended release 24hr 1 cap PO DAILY 0RF trazodone 100 mg tablet 2 tab PO BEDTIME PRN (Reason: Insomnia) 0RF prazosin 2 mg capsule 1 cap PO BID 0RF quetiapine 25 mg Tablet 25 mg PO Q8H PRN (Reason: Anxiety/Restlessness) Qty: 1 0RF sennosides [Senna Lax] 8.6 mg Tablet 8.6 mg PO BEDTIME Qty: 30 0RF acetaminophen 325 mg Tablet 650 mg PO Q6H PRN (Reason: Pain, Mild (Pain Scale 1-3)) Qty: 1 0RF polyethylene glycol 3350 17 gram Powder In Packet 17 g PO DAILY Qty: 30 0RF ketorolac 30 mg/mL (1 mL) Solution 30 mg IVPUSH Q6H PRN (Reason: Pain, Moderate (Pain Scale 4-6) Qty: 1 0RF magnesium hydroxide [Milk of Magnesia] 400 mg/5 mL Suspension 30 ml PO DAILY PRN (Reason: Constipation) Qty: 200 0RF tamsulosin 0.4 mg Capsule 0.4 mg PO BEDTIME Qty: 1 0RF phenobarbital 15 mg Tablet 15 mg PO BID Qty: 1 0RF phenobarbital 15 mg Tablet 15 mg PO DAILY Qty: 1 0RF oxycodone 5 mg Tablet 10 mg PO Q4H PRN (Reason: Pain, Moderate (Pain Scale 4-6) Qty: 10 0RF ondansetron HCl (PF) 4 mg/2 mL Solution 4 mg IVPUSH Q8H PRN (Reason: Nausea And Vomiting) Qty: 1 0RF daptomycin 350 mg Recon Soln 580 mg IV Q24H Qty: 1 0RF docusate sodium [Colace] 100 mg capsule 200 mg PO BEDTIME Qty: 1 0RF Referrals: Silvia Fitzgerald MD [Primary Care Provider] - 2 days Dharmesh Irene MD [Physician] - 1 day Stand Alone Forms: Work/School Release
--- NOTE | 2022-02-07 16:58 | PC.NURSE ---
pt a&ox3, vss, c/o 04/02 right inguinal hernia pain. seen at [facility] yesterday for the same, but pain has gotten worse. pending ED provider.
[2022-02-07 17:31] VITALS: BP 129/91; PULSE 63; RESP 16; TEMP 36.7; O2SAT 97
[2022-02-07] MEDS: Ketorolac Tromethamine 30 MG/ML VIAL IM (17:34)
--- NOTE | 2022-02-07 17:36 | PC.NURSE ---
medicated per provider order.
== END 2022-02-07 17:39 | disposition home or self-care (01) ==
PROVIDERS: Emergency Provider Emergency Medicine; PCP Internal Medicine
DX: K40.90 Unilateral inguinal hernia, without obstruction or gangrene, not specified as recurrent (principal); Z79.899 Other long term (current) drug therapy
CPT/HCPCS: 96372; 99284; J1885

== ENCOUNTER → 2022-02-09 14:27 | Outpatient (BNVA) | payer MEDICAID, SELFPAY | PROVIDERS: PCP Internal Medicine; Referring Provider Internal Medicine; Visit Provider Surgery | DX: K40.90 Unilateral inguinal hernia, without obstruction or gangrene, not specified as recurrent (principal) | CPT/HCPCS: 99202 ==

== ENCOUNTER 2022-03-01 08:41 | Day surgery (SDC) | payer MEDICAID, SELFPAY ==
[2022-02-23 14:38] VITALS: BMI 30.8
--- NOTE | 2022-02-28 08:22 | P.CONAN_ITS ---
Documented by User: Chrissie Mathis NP 02/28/22 08:25 HPI - Anesthesia Eval Consult details Narrative: 51yo M for Right Hernia Repair Inguinal buprenorphine sq PMFSH Active Problems Active Problems: All Active Problems (Updated 02/23/22 @ 14:37 by Janice Sheth RN) Abscess in epidural space of lumbar spine (Acute) Staphylococcus aureus bacteremia (Acute) Right inguinal hernia (Acute) Past Medical History Medical History Anxiety Back pain Chronic hepatitis C Depression Hernia History of amputation of finger History of ETOH abuse HTN (hypertension) Intravenous drug abuse in remission Opioid use disorder Family History Family History Mother Lung cancer Surgical History Surgical History Hx of surgical amputation of finger Social History Social History Household Members: Family Housing: House Alcohol intake: never Patient Tobacco Use Status: Current everyday Tobacco user Tobacco use type: Cigarette Cigarette Packs Per Day: 1.0 Cigarettes Per Day: 20.0 Use of substances other than those prescribed or required for medical reasons: Yes Substance Use Type: Marijuana Are you DNR?: No Advance Directives: No Advance Directives Information Provided: Yes Advance Directives on File: No service: No Current occupational status: unemployed Meds Allergies Allergy/AdvReac Type Severity Reaction Status Date / Time No Known Allergies Allergy Verified 02/23/22 14:18 [No Known Allergies*] Home Medications Medication Instructions Recorded Confirmed Last Taken Type prazosin 2 mg capsule 1 cap PO BEDTIME 07/28/21 02/23/22 Unknown History trazodone 100 mg tablet 2 tab PO BEDTIME PRN Insomnia 07/28/21 02/23/22 Unknown History venlafaxine 150 mg 1 cap PO DAILY 07/28/21 02/23/22 Unknown History capsule,extended release 24 hr buprenorphine 300 mg/1.5 mL mg subcut 02/23/22 02/23/22 Unknown History solution,exten.rel.subcutaneous syringe (Sublocade) Exam Exam Date and Time: February 28, 2022821 Height,Weight and Vital Signs: Height 5 ft 6 in Weight 86.636 kg Pertinent Lab Results Pertinent Lab Results: Laboratory Tests 02/05/22 02/05/22 21:32 21:32 WBC 6.3 Hgb 12.3 L Hct 36.8 L Plt Count 207 D Sodium 137 Potassium 4.5 D Chloride 102 Carbon Dioxide 27 BUN 15 Creatinine 0.87 Narrative Narrative: EKG 07/2021 Vent. Rate : 083 BPM ? ? Atrial Rate : 083 BPM ?? P-R Int : 118 ms? QRS Dur : 098 ms ? ? QT Int : 392 ms ? ? ? P-R-T Axes : 052 020 048 degrees ?? QTc Int : 460 ms ? Normal sinus rhythm Intra-ventricular conduction delay Otherwise normal ECG No significant changes seen ECHO 07/2021 Conclusions: - The left ventricular systolic function is normal.? The visually estimated ejection fraction is between 60-65%. ? - No obvious valvular pathology seen on this study.? Findings Left Ventricle Normal left ventricular cavity size.? There is mildly increased left ventricular wall thickness.? The left ventricular systolic function is normal.? The visually estimated ejection fraction is between 60-65%.? There is no evidence of regional wall motion abnormalities.? Diastolic function is normal for age. Assessment and Plan Assessment Anesthesia Assessment: Chart Reviewed Documented by User: Melissa Lees MD 03/01/22 09:24 [facility] Active Problems Active Problems: All Active Problems (Updated 02/23/22 @ 14:37 by Janice Sheth RN) Abscess in epidural space of lumbar spine (Acute) just over a month ago. Was in rehab on intravenous antibiotics for a month Staphylococcus aureus bacteremia (Acute) Right inguinal hernia (Acute) Hepatitis C- Patient states was treated but is back and being worked up Denies recnt alcohol use. Marijuana 2 days ago Anxiety? Depression Suboxone injection every month. Last 2 weeks ago Very sleepy this morning Past Medical History Medical History Anxiety Back pain Chronic hepatitis C Depression Hernia History of amputation of finger History of ETOH abuse HTN (hypertension) Intravenous drug abuse in remission Opioid use disorder Family History Family History Mother Lung cancer Family history of problems with anesthesia: No Surgical History Surgical History Hx of surgical amputation of finger History of Problems with Anesthesia: No Social History Social History Household Members: Family Housing: House Alcohol intake: never Patient Tobacco Use Status: Current everyday Tobacco user Tobacco use type: Cigarette Cigarette Packs Per Day: 1.0 Cigarettes Per Day: 20.0 Use of substances other than those prescribed or required for medical reasons: Yes Substance Use Type: Marijuana Are you DNR?: No Advance Directives: No Advance Directives Information Provided: Yes Advance Directives on File: No service: No Current occupational status: unemployed Meds Allergies Allergy/AdvReac Type Severity Reaction Status Date / Time No Known Allergies Allergy Verified 02/23/22 14:18 [No Known Allergies*] Home Medications Medication Instructions Recorded Confirmed Last Taken Type prazosin 2 mg capsule 1 cap PO BEDTIME 07/28/21 02/23/22 Unknown History trazodone 100 mg tablet 2 tab PO BEDTIME PRN Insomnia 07/28/21 02/23/22 Unknown History venlafaxine 150 mg 1 cap PO DAILY 07/28/21 02/23/22 Unknown History capsule,extended release 24 hr buprenorphine 300 mg/1.5 mL mg subcut 02/23/22 02/23/22 Unknown History solution,exten.rel.subcutaneous syringe (Sublocade) Exam Height,Weight and Vital Signs: Height 5 ft 6 in Weight 86.636 kg Vital Signs Temp Pulse Resp BP Pulse Ox O2 Del Method 03/01/22 08:59 97.7 F 76 16 132/79 96 Room Air Airway Mallampati Class: II TM Dist: >3cm Neck ROM: Full Loose/Missing/Broken Teeth: Yes (Some missing) Heart: RRR Lungs: CTAB Assessment and Plan Assessment Anesthesia Assessment: Anesthesia Plan Discussed Final Anesthetic Review Family History of Problems with Anesthesia: No History of Problems with Anesthesia: No NPO: Yes ASA Class: III Final Preanesthetic Review: No Changes in Pt Med Stat, Meds/Allgs Chart Reviewed, Consent Obtained/Reviewed and Anes Risks/Benef Reviewed Patient Risk: Intermediate Procedure Risk: Low Assessment/Block/Sedation in SS: Assess/Block/Sedation-SS Anesthetic Plan Anesthetic Plan: GA Disposition: Standard PACU
[2022-03-01] VITALS (8 sets, daily range): BP systolic 132–186; BP diastolic 79–112; PULSE 63–83; RESP 16–18; TEMP 36.5–36.9; O2SAT 92–100
--- NOTE | 2022-03-01 10:44 | P.OP_ITS ---
Operative Note Operative Note Date of Service: 03/01/22 Narrative: Preoperative diagnosis:Right inguinal hernia Postoperative diagnosis:same Procedure:Repair of right inguinal hernia with mesh Surgeon: Dharmesh Irene MD Organizational Research Consultant: no physician Anesthesia:general LMA Indications for procedure: 51 year old male patient presenting with pain in the right groin found to have a palpable lump with lifting and straining. CT of the abdomen and pelvis confirmed a right inguinal hernia. Operative findings:Indirect right inguinal hernia Specimen:hernia sac and lipoma Estimated blood loss:2 mls Complications:none Procedure details: Patient was brought to the OR and placed in a supine position. After administering general anesthesia, the patient's abdomen was prepped with ChloraPrep and draped in a sterile fashion. A surgical time-out was called and consent confirmed. Patient received preoperative antibiotics and Venodyne boots were placed. Local anesthesia consisting of 0.25% Sensorcaine was infiltrated over the right inguinal ligament. Incision was then made with a scalpel carried out through subcutaneous tissue, past Carlie's fascia, and up to the external oblique aponeurosis. Additional local was infiltrated below the external oblique aponeurosis. This was then incised with a scalpel wide with the Metzenbaum scissors. The spermatic cord was then dissected free from the surrounding inguinal canal and retracted using a Leigh drain. The floor of the inguinal canal was found to be intact without a direct hernia. A indirect hernia was immediately identified passing through the internal ring. Fibers of the cremasteric muscle were then and the lipoma dissected free from the surrounding cord contents. A small hernia sac was also identified dissected down into the internal ring. This was then opened and its contents reduced. Sac was then ligated with a 0 Polysorb suture and then excised. The lipoma and hernia sac were sent as specimens to laboratory. The internal oblique and transversalis aponeurosis were then opened between Allis clamps and the preperitoneal space entered. This was then widened using a open Ray-Zina sponge. A large PHS mesh was then obtained. The circular underlay was then deployed within the preperitoneal space. The overlay was then secured to the pubic tubercle, conjoined tendon, shelving edge of the inguinal ligament using 0 Polysorb suture. A slit was in the mesh and wrapped around the sper matic cord at the internal ring. This was then secured to the shelving edge of the inguinal ligament. This was tight enough to allow only the tip of the index finger past. Wounds were then irrigated with saline solution and suctioned dry. 5.5 mL of Zenrelef was then applied to the surface of the mesh. External oblique aponeurosis was then closed using a running 2 0 Polysorb suture. An additional 5 mL of Zenrelef was then applied over the external oblique aponeurosis. Carlie's fascia and dermis were then reapproximated using interrupted 3-0 Polysorb sutures. Skin was closed using a running subcuticular 4-0 Polysorb suture. Steri-Strips, 2 x 2 gauze and Tegaderm were then applied. The patient tolerated the procedure well. Sponge, instrument, needle counts reported as correct. The patient was transferred to PACU in stable condition.
--- NOTE | 2022-03-01 11:25 | MHC.SHP ---
Pre-Procedural Eval Section A Date of Service: 03/01/22 The patient is an INPATIENT: No Changes since office visit: Yes Patient answered all questions; No Cold of Flu in the past 2 weeks, No New Medical Problems and No Changes in Medication The History & Physical has been completed within 30 days and I have reviewed it.: Yes Section B Chief Complaint: Unilateral inguinal hernia, without obstruction Allergies: Allergies Allergy/AdvReac Type Severity Reaction Status Date / Time No Known Allergies Allergy Verified 02/23/22 14:18 [No Known Allergies*] Plan Diagnosis/Plan: Unchanged I have reviewed the history and physical and performed a pertinent physical examination on my patient. No changes have occurred unless specified.
== END 2022-03-01 12:23 | disposition home or self-care (01) ==
PROVIDERS: PCP Internal Medicine; Visit Provider Surgery
PROC: (CPT 49505; principal; 2022-03-01 10:10)
DX: K40.90 Unilateral inguinal hernia, without obstruction or gangrene, not specified as recurrent (principal); D17.6 Benign lipomatous neoplasm of spermatic cord; I10 Essential (primary) hypertension; F32.A Depression, unspecified; F41.1 Generalized anxiety disorder; Z89.022 Acquired absence of left finger(s); Z79.899 Other long term (current) drug therapy; F11.20 Opioid dependence, uncomplicated; F17.210 Nicotine dependence, cigarettes, uncomplicated; F12.90 Cannabis use, unspecified, uncomplicated
CPT/HCPCS: 49505; 88302; 88304; C1781; C9088; J0690; J1100; J1885; J2250; J2405; J3010

== ENCOUNTER 2022-09-24 14:31 | Emergency (ER) | payer MEDICAID, SELFPAY ==
--- NOTE | ~2022-09-24 | XR_ITS ---
EXAMINATION: XR elbow RT min 3V CLINICAL INFORMATION: Reason for Exam swelling, pain COMPARISON: None available at the time of this dictation. TECHNIQUE: Frontal lateral oblique views of the elbow were obtained. FINDINGS: There is no fracture or dislocation. Bone alignments are satisfactory. Surrounding soft tissues are normal. No osteolytic or osteoblastic lesion. Small osteophyte at the insertion of triceps. XR/XR elbow RT min 3V IMPRESSION: * No fracture. Small osteophyte at the insertion of triceps.
[2022-09-24 14:59] VITALS: BP 104/62; PULSE 60; RESP 16; TEMP 36.4; O2SAT 96; BMI 29.0
--- NOTE | 2022-09-24 15:00 | ED_ITS ---
HPI - General Adult General Chief complaint: Extremity Injury, Upper <TATI Preston - Last Filed: 09/24/22 15:02> Stated complaint: swollen right elbow <TATI Preston - Last Filed: 09/24/22 15:02> Time Seen by Provider: 09/24/22 15:36 <TATI Preston - Last Filed: 09/24/22 15:02> Source: patient <TATI Preston - Last Filed: 09/24/22 15:02> Mode of arrival: ambulatory <TATI Preston - Last Filed: 09/24/22 15:02> Limitations: no limitations <TATI Preston - Last Filed: 09/24/22 15:02> History of Present Illness HPI narrative: This is a 51-year-old male with a history of hypertension, former IV drug abuse who presents with right elbow swelling and pain for 3 days. Patient denies any fevers, chills, difficulty moving the arm, numbness or tingling. Patient denies any injury or trauma. Patient reports he has not used IV drugs in greater than 18 months. He is on sublocade. <Marcy Villafuerte NP - Last Filed: 09/24/22 16:03> Related Data Home medications: Home Medications Medication Instructions Recorded Confirmed prazosin 2 mg capsule 1 cap PO BEDTIME 07/28/21 02/23/22 trazodone 100 mg tablet 2 tab PO BEDTIME PRN Insomnia 07/28/21 02/23/22 venlafaxine 150 mg 1 cap PO DAILY 07/28/21 02/23/22 capsule,extended release 24 hr buprenorphine 300 mg/1.5 mL mg subcut 02/23/22 02/23/22 solution,exten.rel.subcutaneous syringe (Sublocade) Previous Rx's Medication Instructions Recorded acetaminophen 325 mg tablet 650 mg PO Q6H PRN Pain, Mild (Pain 08/02/21 Scale 1-3) #1 tab sennosides 8.6 mg tablet (Senna 8.6 mg PO BEDTIME #30 tabs 08/02/21 Lax) naproxen 500 mg tablet 500 mg PO BID PRN pain #14 tabs 02/07/22 oxycodone 5 mg tablet 5 mg PO Q6H PRN pain (scale score 03/01/22 7-10) #20 tabs doxycycline monohydrate 100 mg 100 mg PO BID 10 days #20 caps 09/24/22 capsule <TATI Preston - Last Filed: 09/24/22 15:02> Allergies/adverse reactions: Allergies Allergy/AdvReac Type Severity Reaction Status Date / Time No Known Allergies Allergy Verified 02/23/22 14:18 [No Known Allergies*] <TATI Preston - Last Filed: 09/24/22 15:02> Review of Systems Review of Systems: Yes all other systems are reviewed and are negative <Marcy Villafuerte NP - Last Filed: 09/24/22 16:03> Constitutional: Constitutional: Reports no additional constitutional complaints, Denies body ache(s), Denies chills, Denies fever(s), Denies headache(s) and Denies weakness <Marcy Villafuerte NP - Last Filed: 09/24/22 16:03> Eyes: Eyes: Reports no additional eye complaints and Denies change in vision <Marcy Villafuerte NP - Last Filed: 09/24/22 16:03> ENT: Reports system reviewed and no additional complaints, except as documented, Denies dizziness, Denies headache(s), Denies nasal congestion, Denies nasal discharge and Denies neck pain <Marcy Villafuerte NP - Last File d: 09/24/22 16:03> Cardiovascular: Cardiovascular: Reports no additional cardiovascular complaints, Denies chest pain, Denies leg edema and Denies dyspnea <Marcy Villafuerte NP - Last Filed: 09/24/22 16:03> Respiratory: Respiratory: Reports no additional respiratory complaints, Denies cough and Denies dyspnea <Marcy Villafuerte NP - Last Filed: 09/24/22 16:03> Gastrointestinal: Gastrointestinal: Reports no additional gastrointestinal complaints, Denies abdominal pain, Denies diarrhea, Denies nausea and Denies vomiting <Marcy Villafuerte NP - Last Filed: 09/24/22 16:03> Genitourinary: Genitourinary: Denies urinary incontinence <Marcy Villafuerte NP - Last Filed: 09/24/22 16:03> Musculoskeletal: Musculoskeletal: Reports no additional musculoskeletal complaints, Denies back pain, Reports arthralgias, Reports joint swelling, Denies neck pain, Denies numbness and Denies tingling <Marcy Villafuerte NP - Last Filed: 09/24/22 16:03> Integumentary/Breasts: Skin/Breast: Reports system reviewed and no additional complaints, except as docu and Denies rash <Marcy Villafuerte NP - Last Filed: 09/24/22 16:03> Neurologic: Reports system reviewed and no additional complaints, except as documented, Denies dizziness, Denies headache(s), Denies numbness, Denies tingling and Denies weakness <Marcy Villafuerte NP - Last Filed: 09/24/22 16:03> [facility] Past Medical History Attestation statement: The following information was validated with the patient. <Marcy Villafuerte NP - Last Filed: 09/24/22 16:03> Source: old records reviewed and nursing notes reviewed <Marcy Villafuerte NP - Last Filed: 09/24/22 16:03> Medical History: Medical History Anxiety Back pain Chronic hepatitis C Depression Hernia History of amputation of finger History of ETOH abuse HTN (hypertension) Intravenous drug abuse in remission Opioid use disorder <TATI Preston - Last Filed: 09/24/22 15:02> Surgical History: Surgical History Hx of surgical amputation of finger <TATI Preston - Last Filed: 09/24/22 15:02> Family History Family History: Family History Mother Lung cancer <TATI Preston - Last Filed: 09/24/22 15:02> Social History Social History: Social History Household Members: Family Housing: House Alcohol intake: never Patient Tobacco Use Status: Current everyday Tobacco user Tobacco use type: Cigarette Cigarette Packs Per Day: 1.0 Cigarettes Per Day: 20.0 Substance Use Type: Marijuana Advance Directives: No Advance Directives Information Provided: No service: No Current occupational status: unemployed <TATI Preston - Last Filed: 09/24/22 15:02> Physical Exam ED Vital Signs: Vital Signs - 24 hr 09/24/22 14:59 Temperature 97.6 F Pulse Rate 60 Respiratory Rate 16 Blood Pressure 104/62 Pulse Oximetry 96 Oxygen Delivery Method Room Air BMI result Body Mass Index 29.0 <TATI Preston - Last Filed: 09/24/22 15:02> Vital Signs - 24 hr 09/24/22 14:59 Temperature 97.6 F Pulse Rate 60 Respiratory Rate 16 Blood Pressure 104/62 Pulse Oximetry 96 Oxygen Delivery Method Room Air BMI result Body Mass Index 29.0 <Marcy Villafuerte NP - Last Filed: 09/24/22 16:03> Const General: cooperative, healthy appearing, comfortable and no acute distress <Marcy Villafuerte NP - Last Filed: 09/24/22 16:03> Orientation/consciousness: patient oriented x3 <Marcy Villafuerte NP - Last Filed: 09/24/22 16:03> Limitations: no limitations <Marcy Villafuerte NP - Last Filed: 09/24/22 16:03> HENMT Head: Yes normal to inspection <Marcy Villafuerte NP - Last Filed: 09/24/22 16:03> Ears: hearing grossly normal bilaterally <Marcy Villafuerte NP - Last Filed: 09/24/22 16:03> Eyes General: appearance normal, both eyes and all related structures <Marcy Villafuerte NP - Last Filed: 09/24/22 16:03> Pupils: Equal, round and reactive pupils present <Marcy Villafuerte NP - Last Filed: 09/24/22 16:03> Neck Neck: Yes normal visual inspection, Yes full ROM and Yes no lymphadenopathy <Marcy Villafuerte NP - Last Filed: 09/24/22 16:03> Chest Chest palpation & inspection: normal inspection of the chest <Marcy Villafuerte NP - Last Filed: 09/24/22 16:03> Resp Effort & Inspection: normal respiratory effort <Marcy Villafuerte NP - Last Filed: 09/24/22 16:03> Auscultation: clear to auscultation bilaterally <Marcy Villafuerte NP - Last Filed: 09/24/22 16:03> Cardio Rate: regular rate <Marcy Villafuerte NP - Last Filed: 09/24/22 16:03> Rhythm: regular rhythm <Marcy Villafuerte NP - Last Filed: 09/24/22 16:03> Peripheral pulses: Peripheral pulses 2+ throughout <Marcy Villafuerte NP - Last Filed: 09/24/22 16:03> GI Inspection: Yes normal to inspection <Marcy Villafuerte NP - Last Filed: 09/24/22 16:03> Palpation (GI): Soft to palpation and nontender <Marcy Villafuerte NP - Last Filed: 09/24/22 16:03> General: Yes no CVA tenderness <Marcy Villafuerte NP - Last Filed: 09/24/22 16:03> Back/Spine/Pelvis Back: no CVA tenderness <Marcy Villafuerte NP - Last Filed: 09/24/22 16:03> Thoracic/Lumbar Spine: thoracic and lumbar spine normal to inspection <Marcy Villafuerte NP - Last Filed: 09/24/22 16:03> Skin General skin exam: no rashes or lesions noted <Marcy Villafuerte NP - Last Filed: 09/24/22 16:03> Neuro General: patient oriented x3 and moves all extremities <Marcy Villafuerte NP - Last Filed: 09/24/22 16:03> Cranial nerves: Yes Equal, round and reactive pupils present <Marcy Villafuerte NP - Last Filed: 09/24/22 16:03> Cognition (Neuro): normal cognition <Marcy Villafuerte NP - Last Filed: 09/24/22 16:03> Gait exam (Neuro): Normal gait present <Marcy Villafuerte NP - Last Filed: 09/24/22 16:03> Extrem Other: Over the right lateral elbow there is a swollen bursa the that has mild warmth and redness. There is no warmth or redness surrounding the bursa. There is full range of motion of the elbow with no difficulty. Neurovascularly intact distally. Palpable radial and ulnar pulses. <Marcy Villafuerte NP - Last Filed: 09/24/22 16:03> Course Course Course Narrative: RME performed by Uzma Miranda PA-C. Patient is a 51 year old male presenting to the emergency department with a swollen right elbow. Physical exam is consistent with bursitis. XR ordered to rule out perlita process. Patient placed back in the waiting room pending results and room availability. <TATI Preston - Last Filed: 09/24/22 15:02> Medical Decision Making Medical Decision Making MDM Narrative: This is a 51-year-old male with a history of former IV drug abuse who presents with right elbow swelling and pain for 3 days with no known injury or trauma Exam is consistent with oleacreanon bursitis. There is slight warmth and redness over the bursa alone with no surrounding warmth and redness and no limited range of motion to suggest a septic joint. Due to history of IV drug abuse although patient reports he has not used IV drugs in greater than 18 months would cautiously cover with oral antibiotics. Giuliano wrap given Patient instructed to return for worsening symptoms. <Marcy Villafuerte NP - Last Filed: 09/24/22 16:03> Differential Diagnosis Differential Diagnoses: The differential diagnosis associated with the presentation includes <Marcy Villafuerte NP - Last Filed: 09/24/22 16:03> Bursitis, septic joint, cellulitis <Marcy Villafuerte NP - Last Filed: 09/24/22 16:03> Independent Interpretation I performed an independent interpretation of an: Plain X-Ray (I independently reviewed the x-ray which show no fracture) <Marcy Villafuerte NP - Last Filed: 09/24/22 16:03> Radiology Impression Discussion of test interpretation with radiology: I have reviewed the radiologist's reading. <WILBER Bassett Last Filed: 09/24/22 16:03> Radiologist Impression: FINDINGS: There is no fracture or dislocation. Bone alignments are satisfactory. Surrounding soft tissues are normal. No osteolytic or osteoblastic lesion. Small osteophyte at the insertion of triceps. XR/XR elbow RT min 3V IMPRESSION: ? *? No fracture. ? Small osteophyte at the insertion of triceps. ? <Marcy Villafuerte NP - Last Filed: 09/24/22 16:03> Discharge Plan Discharge Clinical Impression: Bursitis of right elbow <TATI Preston - Last Filed: 09/24/22 15:02> Patient Disposition: Home, Self-Care <TATI Preston - Last Filed: 09/24/22 15:02> Instructions: Elbow Bursitis (ED) <TATI Preston - Last Filed: 09/24/22 15:02> Additional Instructions: Use Giuliano wrap for comfort Apply ice to the affected ear Return for increasing redness, increasing swelling, limited mobility of the elbow, fever greater than 100.4 <TATI Preston - Last Filed: 09/24/22 15:02> Prescriptions: New doxycycline monohydrate 100 mg capsule 100 mg PO BID 10 Days Qty: 20 0RF No Action Sublocade 300 mg/1.5 mL solution, extended rel syringe subcut oxycodone 5 mg tablet 5 mg PO Q6H PRN (Reason: pain (scale score 7-10)) Qty: 20 0RF Rx Instructions: Partial Fill upon patient request. venlafaxine 150 mg capsule,extended release 24hr 1 cap PO DAILY trazodone 100 mg tablet 2 tab PO BEDTIME PRN (Reason: Insomnia) prazosin 2 mg capsule 1 cap PO BEDTIME sennosides [Senna Lax] 8.6 mg Tablet 8.6 mg PO BEDTIME Qty: 30 0RF acetaminophen 325 mg Tablet 650 mg PO Q6H PRN (Reason: Pain, Mild (Pain Scale 1-3)) Qty: 1 0RF naproxen 500 mg tablet 500 mg PO BID PRN (Reason: pain) Qty: 14 0RF Rx Instructions: Take with food <TATI Preston - Last Filed: 09/24/22 15:02> Referrals: Silvia Fitzgerald MD [Primary Care Provider] - 10 days (As needed) <TATI Preston - Last Filed: 09/24/22 15:02> Interventions: ED Discharge Assessment Last Done: 09/24/22 15:49 <TATI Preston - Last Filed: 09/24/22 15:02> Discharge Date/Time: 09/24/22 15:49 <TATI Preston - Last Filed: 09/24/22 15:02>
== END 2022-09-24 15:49 | disposition home or self-care (01) ==
PROVIDERS: Emergency Provider Emergency Medicine; PCP Internal Medicine
DX: M70.31 Other bursitis of elbow, right elbow (principal); I10 Essential (primary) hypertension; F17.210 Nicotine dependence, cigarettes, uncomplicated; Z79.899 Other long term (current) drug therapy; Z71.6 Tobacco abuse counseling
CPT/HCPCS: 73080; 99282; 99283

== ENCOUNTER 2023-03-23 19:26 | Emergency (ER) | payer MEDICAID, SELFPAY ==
[2023-03-23 19:38] VITALS: BP 120/85; BP 125/72; PULSE 84; PULSE 96; RESP 16; TEMP 36.8; O2SAT 90; O2SAT 95; BMI 30.5
[2023-03-23 19:57] VITALS: BP 108/73; PULSE 80; RESP 16; TEMP 36.6; O2SAT 95
--- NOTE | 2023-03-23 20:18 | PC.NURSE ---
declined bloodwork and ekg. plan is for PT to get sober and discharge home. Discharge met with care team and declined detox
--- NOTE | 2023-03-23 20:35 | MHC.RECOVSUP ---
? Reason for consult:OPI o? Current location:[id number]? o? Identified substance use concern:? -? Overdose ? Intervention: o? Community resources provided ? Plan:Pt declined services ? Additional information:
[2023-03-23 22:05] VITALS: BP 104/71; PULSE 62; RESP 15; TEMP 36.6; O2SAT 89
[2023-03-23 22:07] VITALS: O2SAT 98
--- NOTE | 2023-03-23 22:25 | ED.OVERDOSE ---
HPI - Overdose General Chief Complaint: Overdose Stated Complaint: overdose Time Seen by Provider: 03/23/23 19:37 Source: patient Mode of arrival: ambulatory History of Present Illness HPI Narrative: 52-year-old male who states that he had been drug free and then tonight decided to use 1 bag of heroin and was subsequently found unresponsive on the side of the road, he required respiratory assistance via Amb[employer] bag and received 4 mg of Narcan by EMS. Patient received an additional 2 mg of Narcan and became responsive. He denies any SI/HI. Related Data Home Medications Medication Instructions Recorded Confirmed prazosin 2 mg capsule 1 cap PO BEDTIME 07/28/21 02/23/22 trazodone 100 mg tablet 2 tab PO BEDTIME PRN Insomnia 07/28/21 02/23/22 venlafaxine 150 mg 1 cap PO DAILY 07/28/21 02/23/22 capsule,extended release 24 hr buprenorphine 300 mg/1.5 mL mg subcut 02/23/22 02/23/22 solution,exten.rel.subcutaneous syringe (Sublocade) Previous Rx's Medication Instructions Recorded acetaminophen 325 mg tablet 650 mg PO Q6H PRN Pain, Mild (Pain 08/02/21 Scale 1-3) #1 tab sennosides 8.6 mg tablet (Senna 8.6 mg PO BEDTIME #30 tabs 08/02/21 Lax) naproxen 500 mg tablet 500 mg PO BID PRN pain #14 tabs 02/07/22 oxycodone 5 mg tablet 5 mg PO Q6H PRN pain (scale score 03/01/22 7-10) #20 tabs doxycycline monohydrate 100 mg 100 mg PO BID 10 days #20 caps 09/24/22 capsule prednisone 50 mg tablet 50 mg PO DAILY 4 days #4 tabs 03/23/23 Allergies Allergy/AdvReac Type Severity Reaction Status Date / Time No Known Allergies Allergy Verified 02/23/22 14:18 [No Known Allergies*] Review of Systems Review of Systems: Pertinent positives and negatives as stated in HPI [facility] Past Medical History Source: nursing notes reviewed Medical History Anxiety Back pain Chronic hepatitis C Depression Hernia History of amputation of finger History of ETOH abuse HTN (hypertension) Intravenous drug abuse in remission Opioid use disorder Surgical History Hx of surgical amputation of finger Family History Family History Mother Lung cancer Social History Social History Household Members: Family Housing: House Alcohol intake: never Patient Tobacco Use Status: Current everyday Tobacco user Tobacco use type: Cigarette Cigarette Packs Per Day: 1.0 Cigarettes Per Day: 20.0 Substance Use Type: Marijuana Advance Directives: No Advance Directives Information Provided: No service: No Current occupational status: unemployed Physical Exam Vital Signs: Vital Signs: Last Vital Signs Temp 97.8 F 03/23/23 22:05 Pulse 62 03/23/23 22:05 Resp 15 03/23/23 22:05 BP 104/71 03/23/23 22:05 Pulse Ox 98 03/23/23 22:07 O2 Del Method Nasal Cannula 03/23/23 22:07 O2 Flow Rate 2 03/23/23 22:07 BMI result Body Mass Index 30.5 VITAL SIGNS: Reviewed. GENERAL: Well developed, well nourished, in no acute distress. HEAD: Normocephalic/atraumatic EYES: PERRLA, EOMI EARS: Ext canals without abnormality NOSE: Nares patent bilateral OROPHARYNX: no oral lesions noted, posterior pharynx clear NECK: Supple, no adenopathy LUNGS: Normal breath sounds. No adventitious sounds or accessory muscle use. SpO2<89> requiring supplemental oxygen CARDIOVASCULAR: Regular rate and rhythm without noted murmurs ABDOMEN: Soft, non-tender, non-distended with bowel sounds. MUSCULOSKELETAL: No tenderness, deformities, or effusions noted on gross inspection. EXTREMITIES: No cyanosis, clubbing or edema. SKIN: Inspection of the skin reveals no rashes NEUROLOGIC: Drowsy and oriented x 4. Strength and sensation to light touch were grossly intact x 4. Medical Decision Making Medical Decision Making MDM Narrative: 52-year-old male with history and clinical presentation consistent with heroin overdose and recovered with administration of Narcan, currently remains hypoxic and requiring supplemental oxygen despite appropriate respiratory rate. Otherwise he is hemodynamically stable he has been evaluated for substance use disorder by the care team/reading recovery teacher, continues to deny any suicidal ideation. Will proceed with chest x-ray for further evaluation as he is been observed for 2 hours but remains hypoxic without history of COPD or asthma. If and when patient is stable for discharge he will go home with home Narcan. No evidence of pneumonia on the chest x-ray and otherwise my interpretation is in agreement with radiology's impression. Patient might have a mild pneumonitis from his recent overdose and he will be treated with a short course of steroids. He is now oxygenating at 94% on room air. Differential Diagnosis Please see the discussion above Admission/Observation Consideration of admission/observation: Escalation of care including admission/observation considered If remains hypoxic will need admission. Lab Data Please see the discussion above Radiology Impression Radiologist Impression: No pneumonia otherwise my interpretation is in agreement with radiology's impression. External Record Review External record reviewed: Outpatient record and Prior outpatient labs Discharge Plan Discharge Clinical Impression: Overdose, Pneumonitis Patient Disposition: Home, Self-Care Instructions: Pneumonitis (ED), Adult Overdose (ED) Additional Instructions: 1. Please complete the short course of steroids as prescribed. Return to the ER for any worsening symptoms. Prescriptions: New prednisone 50 mg tablet 50 mg PO DAILY 4 Days Qty: 4 0RF No Action Sublocade 300 mg/1.5 mL solution, extended rel syringe subcut oxycodone 5 mg tablet 5 mg PO Q6H PRN (Reason: pain (scale score 7-10)) Qty: 20 0RF Rx Instructions: Partial Fill upon patient request. doxycycline monohydrate 100 mg capsule 100 mg PO BID 10 Days Qty: 20 0RF venlafaxine 150 mg capsule,extended release 24hr 1 cap PO DAILY trazodone 100 mg tablet 2 tab PO BEDTIME PRN (Reason: Insomnia) prazosin 2 mg capsule 1 cap PO BEDTIME sennosides [Senna Lax] 8.6 mg Tablet 8.6 mg PO BEDTIME Qty: 30 0RF acetaminophen 325 mg Tablet 650 mg PO Q6H PRN (Reason: Pain, Mild (Pain Scale 1-3)) Qty: 1 0RF naproxen 500 mg tablet 500 mg PO BID PRN (Reason: pain) Qty: 14 0RF Rx Instructions: Take with food Referrals: [facility] [Primary Care Provider] -
[2023-03-23] MEDS: predniSONE 20 MG TABLET 40 MG PO (23:13)
[2023-03-23] MEDS: Naloxone HCl Nasal TAKE HOME 4 MG SPRAY 8 MG NOSTRILALT (23:13)
== END 2023-03-23 23:39 | disposition home or self-care (01) ==
PROVIDERS: Emergency Provider Student in an Organized Health Care Education/Training Program
DX: R40.4 Transient alteration of awareness (principal); T40.1X1A Poisoning by heroin, accidental (unintentional), initial encounter; J18.9 Pneumonia, unspecified organism; R09.02 Hypoxemia; Y92.9 Unspecified place or not applicable; I10 Essential (primary) hypertension; B18.2 Chronic viral hepatitis C; F17.210 Nicotine dependence, cigarettes, uncomplicated; Z79.899 Other long term (current) drug therapy
CPT/HCPCS: 71046; 99285

== ENCOUNTER 2023-06-14 17:46 | Emergency (ER) | payer MEDICAID, SELFPAY ==
[2023-06-14 17:55] VITALS: BP 108/75; BP 122/89; PULSE 85; PULSE 92; RESP 16; TEMP 36.6; O2SAT 92; O2SAT 97; BMI 30.7
--- NOTE | 2023-06-14 19:20 | ED.OVERDOSE ---
HPI - Overdose General Chief Complaint: Overdose Stated Complaint: OD, found unresponsive in traffic, narcan given Time Seen by Provider: 06/14/23 18:19 Source: patient and EMS Mode of arrival: EMS Limitations: no limitations History of Present Illness HPI Narrative: a 52-year-old male a former IV drug abuse has been clean for the past 2 years, patient brought a New car today and decided to use a half a bag of heroin to celebrate that, as a result patient was found unresponsive and was given 8 mg of Narcan nasally at the scene with improvement of his mental status, patient now regrets using heroin. Related Data Home Medications Medication Instructions Recorded Confirmed prazosin 2 mg capsule 1 cap PO BEDTIME 07/28/21 02/23/22 trazodone 100 mg tablet 2 tab PO BEDTIME PRN Insomnia 07/28/21 02/23/22 venlafaxine 150 mg 1 cap PO DAILY 07/28/21 02/23/22 capsule,extended release 24 hr buprenorphine 300 mg/1.5 mL mg subcut 02/23/22 02/23/22 solution,exten.rel.subcutaneous syringe (Sublocade) Previous Rx's Medication Instructions Recorded acetaminophen 325 mg tablet 650 mg (2 x 325 mg) PO Q6H PRN 08/02/21 Pain, Mild (Pain Scale 1-3) #1 tab sennosides 8.6 mg tablet (Senna 8.6 mg PO BEDTIME #30 tabs 08/02/21 Lax) naproxen 500 mg tablet 500 mg PO BID PRN pain #14 tabs 02/07/22 oxycodone 5 mg tablet 5 mg PO Q6H PRN pain (scale score 03/01/22 7-10) #20 tabs doxycycline monohydrate 100 mg 100 mg PO BID 10 days #20 caps 09/24/22 capsule prednisone 50 mg tablet 50 mg PO DAILY 4 days #4 tabs 03/23/23 Allergies Allergy/AdvReac Type Severity Reaction Status Date / Time No Known Allergies Allergy Verified 02/23/22 14:18 [No Known Allergies*] Review of Systems Review of Systems: All other systems are reviewed and are negative Constitutional: Reports as per HPI and Reports no additional constitutional complaints Eyes: Reports as per HPI and Reports no additional eye complaints Reports system reviewed and no additional complaints, except as documented Cardiovascular: Reports as per HPI and Reports no additional cardiovascular complaints Respiratory: Reports as per HPI and Reports no additional respiratory complaints Gastrointestinal: Reports as per HPI and Reports no additional gastrointestinal complaints Genitourinary: Reports no additional female genitourinary complaints Musculoskeletal: Reports no additional musculoskeletal complaints Skin/Breast: Reports system reviewed and no additional complaints, except as docu Psychiatric: Reports no additional psychiatric complaints Endocrine: Reports no additional endocrine complaints Hematologic/Lymphatic: Reports no additional hematologic/lymphatic complaints Allergic/Immunologic: Reports no additional allergic/immunologic complaints Reports system reviewed and no additional complaints, except as documented and Reports Abnormal speech present [facility] Past Medical History Medical History Back pain History of ETOH abuse Chronic hepatitis C History of amputation of finger Hernia Opioid use disorder Intravenous drug abuse in remission Anxiety Depression HTN (hypertension) Surgical History Hx of surgical amputation of finger Family History Family History Mother Lung cancer Social History Social History Household Members: Family Housing: House Alcohol intake: current Alcohol intake frequency: a few times a week Patient Tobacco Use Status: Current everyday Tobacco user Tobacco use type: Cigarette Cigarette Packs Per Day: 1.0 Cigarettes Per Day: 20.0 Smoked in Last 30 Days: Yes Use of substances other than those prescribed or required for medical reasons: Yes Substance Use Type: Heroin and Marijuana Advance Directives: No Advance Directives Information Provided: No service: No Current occupational status: unemployed Physical Exam Vital Signs: Vital Signs: Last Vital Signs Temp 97.9 F 06/14/23 17:55 Pulse 85 06/14/23 17:55 Resp 16 06/14/23 17:55 BP 108/75 06/14/23 17:55 Pulse Ox 92 06/14/23 17:55 O2 Del Method Room Air 06/14/23 17:55 BMI result Body Mass Index 30.7 Vital signs have been reviewed and appear to be correct. Blood pressure elevated. Heart rate normal. Respiratory rate normal. Temperature normal. Oxygen saturation normal. Appearance: Alert. Oriented X3. No acute distress. Head: Normal external exam. Normocephalic. Atraumatic. No Hernandez signs noted. No raccoon eyes noted Eyes: PERRLA. EOMI. Conjunctiva and sclera normal. Eyelids normal. ENT: TM's Normal. Pharynx normal. Uvula midline. Moist mucous membranes. No trismus noted. No drooling noted. No muffled voice noted. Neck: Normal inspection. Neck supple. FROM. No adenopathy. Thyroid Normal. No meningeal signs. No neck mass noted. CVS: Normal heart rate and rhythm. Heart sound normal. No murmurs noted. Pulses normal throughout. Respiratory: No respiratory distress. Painless inspiration. Breath sounds normal. No wheezes/rales/rhonchi noted. Chest nontender. No accessory muscle usage noted or decreased air movement noted. Abdomen: Soft and nontender. Bowel sounds normal in all 4 quadrants. No distention noted. No organomegaly noted. No visible injury noted. Back: No CVA tenderness. Full range of motion noted. Skin: Skin warm and dry. Normal skin color. Normal skin turgor. No rashes/lesions/lacerations noted. Extremities: No lower extremity edema. Extremities exhibit normal range of motion. Extremities nontender. Neuro: Oriented X 3. Cranial nerve exam: II-XII are grossly intact No motor deficit. No sensory deficit. Reflexes normal. Course Course Course Narrative: A 52-year-old male who used to have a bag of heroin and found unresponsive in the street patient has been sober for 4 years, patient required 8 mg of Narcan, patient now is awake, alert, oriented x3, cooperative patient regrets using heroin today, no SI, no HI admit that was an accidental overdose. Patient was evaluated by recovery team in the emergency department okay to be discharged with Narcan to go home with. Medical Decision Making Differential Diagnosis Differential Diagnoses: The differential diagnosis associated with the presentation includes ( accidental overdose, SI, HI, depression, unstable vital signs.) Discharge Plan Discharge Clinical Impression: Accidental overdose Instructions: Adult Overdose (ED) Prescriptions: No Action Sublocade 300 mg/1.5 mL solution, extended rel syringe subcut oxycodone 5 mg tablet 5 mg PO Q6H PRN (Reason: pain (scale score 7-10)) Qty: 20 0RF Rx Instructions: Partial Fill upon patient request. doxycycline monohydrate 100 mg capsule 100 mg PO BID 10 Days Qty: 20 0RF venlafaxine 150 mg capsule,extended release 24hr 1 cap PO DAILY trazodone 100 mg tablet 2 tab PO BEDTIME PRN (Reason: Insomnia) prazosin 2 mg capsule 1 cap PO BEDTIME sennosides [Senna Lax] 8.6 mg Tablet 8.6 mg PO BEDTIME Qty: 30 0RF acetaminophen 325 mg Tablet 650 mg PO Q6H PRN (Reason: Pain, Mild (Pain Scale 1-3)) Qty: 1 0RF naproxen 500 mg tablet 500 mg PO BID PRN (Reason: pain) Qty: 14 0RF Rx Instructions: Take with food prednisone 50 mg tablet 50 mg PO DAILY 4 Days Qty: 4 0RF
[2023-06-14] MEDS: Naloxone HCl Nasal TAKE HOME 4 MG SPRAY 8 MG NOSTRILALT (19:25)
--- NOTE | 2023-06-14 19:29 | HO.SUDE ---
Met with pt in ED22H to complete SUDE, pt here in ED post overdose. Pt reports having been sober for the past 2 years and used for the first time today to celebrate buying a car. Pt used 1/2 bag of heroin nasally and has a history of overdosing over 10 times with the most recent 2 years ago before he got sober. at this time pt is not interested in any recovery supports or MAT and feels he will not be using again after this. T/W reviewed harm reduction and overdose prevention, pt verbalized understanding and has no other questions or concerns at this time.
--- NOTE | 2023-06-14 19:32 | PC.NURSE ---
Reviewed discharge instruction with pt, medicated per Nov, Notified Rn Mayra, Pt able to answer question correctly, able to ambulate. No sign of distress.
== END 2023-06-14 20:25 | disposition home or self-care (01) ==
PROVIDERS: Emergency Provider Emergency Medicine
DX: T40.1X1A Poisoning by heroin, accidental (unintentional), initial encounter (principal); R40.4 Transient alteration of awareness; Y92.410 Unspecified street and highway as the place of occurrence of the external cause; F17.210 Nicotine dependence, cigarettes, uncomplicated
CPT/HCPCS: 99284

== ENCOUNTER 2023-06-15 09:24 | Emergency (ER) | payer MEDICAID, SELFPAY ==
[2023-06-15 09:29] VITALS: BP 114/76; PULSE 85; O2SAT 94
[2023-06-15 09:34] VITALS: BP 130/83; PULSE 80; RESP 15; TEMP 36.7; O2SAT 100; BMI 32.0
[2023-06-15] MEDS: ondansetron HCL 4 MG/2 ML VIAL IVPUSH (09:35)
--- NOTE | 2023-06-15 09:44 | PC.NURSE ---
facundor belongings placed in decon
--- NOTE | 2023-06-15 09:48 | PC.NURSE ---
patient awake and alert, speaks in clear full sentences. pt on o2 monitoring
[2023-06-15 11:28] LABS: Amphetamine Screen Urine Not Detected (Not Detect); Barbiturates, Urine Not Detected (Not Detect); Benzodiazepines Screen Urine Not Detected (Not Detect); Cannabinoid Screen Urine POSITIVE (Not Detect); Cocaine Screen Urine Not Detected (Not Detect); Fentanyl, urine POSITIVE (Not Detect); Opiate Screen Urine POSITIVE (Not Detect); Phencyclidine Screen Urine Not Detected (Not Detect)
--- NOTE | 2023-06-15 11:48 | HO.SUDE ---
Met with pt in ED9 to complete SUDE. Pt informs when he left the ED last night he found the remaining 1/2 bag of heroin in his pocket and decided to try it again. Pt informs he has no more left in his possession and will not be trying to buy more. Pt informs nothing has changed since he was here last night (please see previous SUDE from 06/14/23). Reviewed harm reduction and overdose prevention and pt verbalized understanding. Pt has no other questions or concerns at this time and is good to DC.
--- NOTE | 2023-06-15 12:28 | ED_ITS ---
HPI - Overdose General Chief Complaint: Overdose Stated Complaint: pt found, od, 2 doses of narcan given, per ems Time Seen by Provider: 06/15/23 12:03 Source: patient Mode of arrival: ambulatory Limitations: no limitations History of Present Illness HPI Narrative: 52-year-old male history of opiate use disorder, presenting to the emergency department status post using heroin, patient reports he used half a bag to celebrate, patient also reports he overdose yesterday however he says he is out of bags of heroin and is not wanting to overdose. Patient was given 8 mg of Narcan with good affect. Patient denies SI or HI. This was not a suicide attempt. Patient denies hallucinations. Denies anxiety, depression, chest pain, shortness of breath, nausea, vomiting, fevers, chills, headache, vision changes, dizziness. No associated trauma. Patient is refusing medical workup, does not want substance use disorder evaluation. Related Data Home Medications Medication Instructions Recorded Confirmed prazosin 2 mg capsule 1 cap PO BEDTIME 07/28/21 02/23/22 trazodone 100 mg tablet 2 tab PO BEDTIME PRN Insomnia 07/28/21 02/23/22 venlafaxine 150 mg 1 cap PO DAILY 07/28/21 02/23/22 capsule,extended release 24 hr buprenorphine 300 mg/1.5 mL mg subcut 02/23/22 02/23/22 solution,exten.rel.subcutaneous syringe (Sublocade) Previous Rx's Medication Instructions Recorded acetaminophen 325 mg tablet 650 mg (2 x 325 mg) PO Q6H PRN 08/02/21 Pain, Mild (Pain Scale 1-3) #1 tab sennosides 8.6 mg tablet (Senna 8.6 mg PO BEDTIME #30 tabs 08/02/21 Lax) naproxen 500 mg tablet 500 mg PO BID PRN pain #14 tabs 02/07/22 oxycodone 5 mg tablet 5 mg PO Q6H PRN pain (scale score 03/01/22 7-10) #20 tabs doxycycline monohydrate 100 mg 100 mg PO BID 10 days #20 caps 09/24/22 capsule prednisone 50 mg tablet 50 mg PO DAILY 4 days #4 tabs 03/23/23 naloxone 4 mg/actuation nasal 4 mg intranasal Q2M PRN opioid 09/22/23 spray (Narcan) overdose #2 ea Allergies Allergy/AdvReac Type Severity Reaction Status Date / Time No Known Allergies Allergy Verified 02/23/22 14:18 [No Known Allergies*] Review of Systems Review of Systems: Constitutional : No Weight loss, No Fever, No Chills, No Fatigue, No Malaise ENT/Mouth : No sore throat, No Rhinorrhea Eyes: No Eye Pain, No Swelling, No Redness Cardiovascular : No Chest Pain, No SOB, No Dyspnea on Exertion, No Orthopnea, No Edema, No Palpitations Respiratory : No Cough, No Sputum, No Wheezing Gastrointestinal : No Nausea, No Vomiting, No Diarrhea, No Constipation, No abdominal Pain, No Hematochezia, No Melena Genitourinary : No Dysuria, No Urinary Frequency, No Hematuria, Musculoskeletal : No joint pain, No Myalgias, No Joint Swelling Skin : No Skin Lesions, No rash Neuro : No Weakness, No Numbness, No Dizziness, No Headache Psych : No Anxiety/Panic, No Depression, No SI or HI All other systems reviewed and are negative Yes all other systems are reviewed and are negative [facility] Past Medical History Attestation statement: The following information was validated with the patient. Source: old records reviewed and nursing notes reviewed Medical History Back pain History of ETOH abuse Chronic hepatitis C History of amputation of finger Hernia Opioid use disorder Intravenous drug abuse in remission Anxiety Depression HTN (hypertension) Surgical History Hx of surgical amputation of finger Family History Family History Mother Lung cancer Social History Social History Household Members: Family Housing: House Alcohol intake: current Alcohol intake frequency: a few times a week Patient Tobacco Use Status: Current everyday Tobacco user Tobacco use type: Cigarette Cigarette Packs Per Day: 1.0 Cigarettes Per Day: 20.0 Substance Use Type: Heroin and Marijuana Advance Directives: No Advance Directives Information Provided: No service: No Current occupational status: unemployed Physical Exam Vital Signs: Vital Signs: Last Vital Signs Temp 98.0 F 06/15/23 09:34 Pulse 80 06/15/23 09:34 Resp 15 06/15/23 09:34 BP 130/83 06/15/23 09:34 Pulse Ox 100 06/15/23 09:34 O2 Del Method Room Air 06/15/23 09:34 BMI result Body Mass Index 32.0 vss Appearance: Alert.? Oriented X3.? No acute distress.? Head: Normocephalic, atraumatic, no step-offs or deformities Eyes: Pupils equal, round and reactive to light.? CVS: Normal heart rate and rhythm.? Pulses normal.? Respiratory: No respiratory distress.? Breath sounds normal.? Abdomen: Soft and nontender.? Skin: Skin warm and dry.? Normal skin color.? Normal skin turgor.? Extremities: No lower extremity edema.? No calf ttp. 5/5 strength to bilateral upper and lower extremities Back: No midline tenderness, no C-spine tenderness, full range of motion, no CVA tenderness bilaterally Neuro: Oriented X 3.? No motor deficit.? No sensory deficit. CN 2-12 intact . Ambulating with steady gait normal coordination Course Reevaluation(s) Reevaluation #1: Patient positive for fentanyl, opiates. No SI or HI. Patient feeling well has been and department for greater than 2-1/2 hours, vital signs are stable in saturating 100% on room air. No signs of withdrawal at this time or overdose. Patient to be discharged home with Narcan. Educated patient on diagnosis and treatment plan, answered all question, patient verbalizes understanding. At this time patient will be discharged home, advised to return with new or worsening symptoms. Educated on worrisome signs and symptoms and when to return. At this time I feel comfortable discharge home. Time: 12:30 Medications Administered Discontinued Medications Generic Name Dose Route Start Last Admin Trade Name Freq PRN Reason Stop Dose Admin Ondansetron HCl 4 mg 06/15/23 10:37 06/15/23 09:35 Ondansetron Hcl 4 Mg/2 Ml Vial IVPUSH 06/15/23 10:38 4 mg ONCE ONE Administration Medical Decision Making Medical Decision Making MDM Narrative: 1200 52-year-old male presents status post accidental heroin overdose. No associated trauma. No SI or HI. Refusing services. Does not want substance use disorder evaluation. Denies medical complaints Physical exam benign Likely accidental opiate overdose. No thoughts of suicidal or homicidal ideation, no signs of psychosis, no indication for Section 12 are care team evaluation, I offered him to speak to recovery for detox services, patient refused. Patient feeling well. He has been in the department for over 2-1/2 hours, no signs of acute respiratory distress. No signs of flash pulmonary edema. No signs of traumatic injury to head, neck, chest, abdomen or pelvis. Neuro nonfocal. Plan urine toxicology Differential Diagnosis Differential Diagnoses: The differential diagnosis associated with the presentation includes Likely accidental opiate overdose. No thoughts of suicidal or homicidal ideation, no signs of psychosis, no indication for Section 12 are care team evaluation, I offered him to speak to recovery for detox services, patient refused. Patient feeling well. He has been in the department for over 2-1/2 hours, no signs of acute respiratory distress. No signs of flash pulmonary edema. No signs of traumatic injury to head, neck, chest, abdomen or pelvis. Neuro nonfocal. Admission/Observation Consideration of admission/observation: Escalation of care including admissio n/observation considered No indication refusing psych eval and substance use disorder evaluation Lab Data MDM Lab Attestation statement: I reviewed the patient's lab results. Labs: Lab Results 06/15/23 Range/Units 11:07 Urine Opiates Screen POSITIVE H (Not Detect) Urine Fentanyl Screen POSITIVE H (Not Detect) Ur Barbiturates Screen Not Detected (Not Detect) Ur Phencyclidine Scrn Not Detected (Not Detect) Ur Amphetamines Screen Not Detected (Not Detect) U Benzodiazepines Scrn Not Detected (Not Detect) Urine Cocaine Screen Not Detected (Not Detect) U Marijuana (THC) Screen POSITIVE H (Not Detect) Chronic Conditions Patient?s care impacted by: Other (Polysubstance abuse) Discharge Plan Discharge Clinical Impression: Drug overdose Patient Disposition: Home, Self-Care Instructions: Adult Overdose (ED) Additional Instructions: Take your medications as prescribed. If you were prescribed antibiotics today, it is important that you take your medication to their entirety, do not skip any doses, do not finish them early. Follow-up with your primary care provider this week. Return to the emergency department with new or worsening symptoms. Such as fevers, chills, chest pain, shortness of breath, nausea, vomiting, dizziness, headache, vision changes, lethargy In case of emergency call 911 Please lease picker Narcan from her pharmacy Prescriptions: New naloxone [Narcan] 4 mg/actuation spray,non-aerosol 4 mg intranasal Q2M PRN (Reason: opioid overdose) Qty: 2 0RF Rx Instructions: spray 1 dose into ONE nostril; alternate nostrils w each dose until help a rrives No Action Sublocade 300 mg/1.5 mL solution, extended rel syringe subcut oxycodone 5 mg tablet 5 mg PO Q6H PRN (Reason: pain (scale score 7-10)) Qty: 20 0RF Rx Instructions: Partial Fill upon patient request. doxycycline monohydrate 100 mg capsule 100 mg PO BID 10 Days Qty: 20 0RF venlafaxine 150 mg capsule,extended release 24hr 1 cap PO DAILY trazodone 100 mg tablet 2 tab PO BEDTIME PRN (Reason: Insomnia) prazosin 2 mg capsule 1 cap PO BEDTIME sennosides [Senna Lax] 8.6 mg Tablet 8.6 mg PO BEDTIME Qty: 30 0RF acetaminophen 325 mg Tablet 650 mg PO Q6H PRN (Reason: Pain, Mild (Pain Scale 1-3)) Qty: 1 0RF naproxen 500 mg tablet 500 mg PO BID PRN (Reason: pain) Qty: 14 0RF Rx Instructions: Take with food prednisone 50 mg tablet 50 mg PO DAILY 4 Days Qty: 4 0RF Referrals: Silvia Fitzgerald MD [Primary Care Provider] - 2 days Interventions: ED Discharge Assessment Last Done: 06/15/23 12:29
== END 2023-06-15 12:29 | disposition home or self-care (01) ==
PROVIDERS: Emergency Provider Emergency Medicine Emergency Medical Services; PCP Internal Medicine
DX: T40.1X1A Poisoning by heroin, accidental (unintentional), initial encounter (principal); Y92.9 Unspecified place or not applicable; F17.210 Nicotine dependence, cigarettes, uncomplicated; Z71.6 Tobacco abuse counseling; Z79.899 Other long term (current) drug therapy
CPT/HCPCS: 80307; 96374; 99282; 99284; J2405

== ENCOUNTER 2023-07-27 08:30 | Emergency (ER) | payer OTHER, MEDICAID, SELFPAY ==
--- NOTE | ~2023-07-27 | CT_ITS ---
EXAMINATION: CT CERVICAL SPINE WITHOUT CONTRAST CLINICAL INFORMATION: Weakness and paresthesia COMPARISON: None available. TECHNIQUE: Noncontrast CT examinations of cervical spine were performed. Coronal and sagittal reformats were obtained at the acquisition workstation. This CT examination was performed using dose optimization techniques as appropriate, variously including the following: *Automated exposure control *Adjustment of mA and/or kV according to patient size (this includes techniques or standardized protocols for targeted exams where dose is matched to indication/reason for exam; i.e. extremities or head) *Use of iterative reconstruction technique DLP: 542 mGy-cm FINDINGS: No evidence of acute fracture or traumatic subluxation of the cervical spine. There is straightening of the normal cervical curvature with otherwise maintained sagittal alignment. Vertebral body heights and intervertebral disc spaces are maintained except of narrowing cough C5-C6 and C6-C7 intervertebral disc spaces associated with marginal spurring and uncovertebral osteophytosis.. The atlantoaxial and atlantooccipital articulations are intact. No prevertebral soft tissue swelling. There is no cervical lymphadenopathy. The visualized thyroid gland is unremarkable. The visualized lung apices are clear. CT/CT cervical spine wo IV con IMPRESSION: Mild multilevel degenerative changes. No evidence of spinal canal stenosis or neural foraminal encroachment Fleischner guidelines were followed.
--- NOTE | ~2023-07-27 | XR_ITS ---
EXAMINATION: Bilateral hand. CLINICAL INDICATION: Hand pain and swelling. COMPARISON: None. TECHNIQUE: 3 views each hand. FINDINGS: Left hand: There is amputation of left second digit at the proximal metacarpal. Mild loss of PIP and DIP joint spaces is seen left hand without bony erosive changes, periapical spurring or soft tissue abnormality. Right hand: There is mild loss of PIP and DIP joints without periarticular spurring. No visible acute fracture or dislocation or subluxation seen. The soft tissues are normal. XR/XR hand LT min 3V IMPRESSION: 1. Mild degenerative changes PIP and DIP joints both hands. No visible acute fracture or dislocation seen. 2. There is amputation of left second digit at the proximal metacarpal.
--- NOTE | ~2023-07-27 | XR_ITS ---
EXAMINATION: Bilateral hand. CLINICAL INDICATION: Hand pain and swelling. COMPARISON: None. TECHNIQUE: 3 views each hand. FINDINGS: Left hand: There is amputation of left second digit at the proximal metacarpal. Mild loss of PIP and DIP joint spaces is seen left hand without bony erosive changes, periapical spurring or soft tissue abnormality. Right hand: There is mild loss of PIP and DIP joints without periarticular spurring. No visible acute fracture or dislocation or subluxation seen. The soft tissues are normal. XR/XR hand RT min 3V IMPRESSION: 1. Mild degenerative changes PIP and DIP joints both hands. No visible acute fracture or dislocation seen. 2. There is amputation of left second digit at the proximal metacarpal.
[2023-07-27 08:34] VITALS: BP 156/90; PULSE 106; RESP 20; TEMP 36.9; O2SAT 95; BMI 30.7
--- NOTE | 2023-07-27 08:41 | ED_ITS ---
HPI - General Adult General Chief complaint: Extremity Problem Stated complaint: B/L Hand and Arm Pain Swelling Time Seen by Provider: 07/27/23 08:36 Source: patient, RN notes reviewed and old records reviewed Mode of arrival: ambulatory History of Present Illness HPI narrative: 52-year-old male with a past medical history of hepatitis-C, hernia, IVDA on Suboxone, anxiety, depression, hypertension, presenting to the ED complaining of bilateral shoulder pain radiating down bilateral upper extremities > hands with associated numbness/tingling and hand swelling x5 days. Reports mild left-sided neck pain. States difficulty performing physical activity at work due to hand swelling/pain. Denies known injury, trauma/fall, fever/chills, CP/SOB, headache, weakness. 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 Related Data Home Medications Medication Instructions Recorded Confirmed prazosin 2 mg capsule 1 cap PO BEDTIME 07/28/21 02/23/22 trazodone 100 mg tablet 2 tab PO BEDTIME PRN Insomnia 07/28/21 02/23/22 venlafaxine 150 mg 1 cap PO DAILY 07/28/21 02/23/22 capsule,extended release 24 hr buprenorphine 300 mg/1.5 mL mg subcut 02/23/22 02/23/22 solution,exten.rel.subcutaneous syringe (Sublocade) Previous Rx's Medication Instructions Recorded acetaminophen 325 mg tablet 650 mg (2 x 325 mg) PO Q6H PRN 08/02/21 Pain, Mild (Pain Scale 1-3) #1 tab sennosides 8.6 mg tablet (Senna 8.6 mg PO BEDTIME #30 tabs 08/02/21 Lax) naproxen 500 mg tablet 500 mg PO BID PRN pain #14 tabs 02/07/22 oxycodone 5 mg tablet 5 mg PO Q6H PRN pain (scale score 03/01/22 7-10) #20 tabs doxycycline monohydrate 100 mg 100 mg PO BID 10 days #20 caps 09/24/22 capsule prednisone 50 mg tablet 50 mg PO DAILY 4 days #4 tabs 03/23/23 naloxone 4 mg/actuation nasal 4 mg intranasal Q2M PRN opioid 06/15/23 spray (Narcan) overdose #2 ea acetaminophen 500 mg tablet 500 mg PO Q6H PRN fever or pain 07/27/23 (Tylenol Extra Strength) #14 tabs cyclobenzaprine 5 mg tablet 5 mg PO Q8H PRN pain (scale score 07/27/23 7-10) 5 days #14 tabs ketorolac 10 mg tablet 10 mg PO TID PRN pain 5 days #15 07/27/23 tabs prednisone 20 mg tablet 40 mg (2 x 20 mg) PO DAILY 5 days 07/27/23 #10 tabs Allergies Allergy/AdvReac Type Severity Reaction Status Date / Time No Known Allergies Allergy Verified 02/23/22 14:18 [No Known Allergies*] Review of Systems 2 Review of Systems: Constitutional: No Fever, No Chills, No Fatigue, No Malaise ENT/Mouth: No Ear Pain, No Nasal Congestion, No sore throat, No Rhinorrhea, No Swallowing Difficulty Eyes: No Eye Pain, No Swelling, No Redness, No Vision Changes Cardiovascular: No Chest Pain, No SOB, No Edema, No Palpitations Respiratory: No Cough, No Sputum, No Dyspnea Gastrointestinal: No Nausea, No Vomiting, No Diarrhea, No Constipation, No Abdominal pain Musculoskeletal: + joint pain, No Myalgias, + Joint Swelling Skin: No Skin Lesions, No rash Neuro: No Weakness, + Numbness, + Paresthesias, No Loss of Consciousness, No Dizziness, No Headache Yes all other systems are reviewed and are negative Constitutional: Constitutional: Reports as per [facility] Past Medical History Attestation statement: The following information was validated with the patient. Source: old records reviewed Medical History Back pain History of ETOH abuse Chronic hepatitis C History of amputation of finger Hernia Opioid use disorder Intravenous drug abuse in remission Anxiety Depression HTN (hypertension) Surgical History Hx of surgical amputation of finger Family History Family History Mother Lung cancer Social History Social History Household Members: Family Housing: House Alcohol intake: current Alcohol intake frequency: a few times a week Patient Tobacco Use Status: Current everyday Tobacco user Tobacco use type: Cigarette Cigarette Packs Per Day: 1.0 Cigarettes Per Day: 20.0 Substance Use Type: Heroin and Marijuana Advance Directives: No Advance Directives Information Provided: No service: No Current occupational status: unemployed Physical Exam ED Vital Signs: Vital Signs - 24 hr 07/27/23 08:34 07/27/23 10:12 Temperature 98.4 F 98.6 F Pulse Rate 106 H 57 Respiratory Rate 20 14 Blood Pressure 156/90 H 136/78 Pulse Oximetry 95 95 Oxygen Delivery Method Room Air Room Air BMI result Body Mass Index 30.7 Const General: cooperative, healthy appearing and no acute distress Orientation/consciousness: patient oriented x3 Limitations: no limitations HENMT Head: Yes normal to inspection and Yes atraumatic Ears: hearing grossly normal bilaterally General nose exam: Normal external nose present Face and sinus: Yes normal facial exam Eyes General: appearance normal, both eyes and all related structures EOM: EOMs intact bilaterally Neck Other: No midline cervical spinous tenderness. Left-sided paraspinal/trapezius muscle tenderness noted. Neck: Yes normal visual inspection, Yes no meningeal signs, No anterior neck swelling and No torticollis Resp Effort & Inspection: normal respiratory effort and no respiratory distress Auscultation: clear to auscultation bilaterally Cardio Rate: regular rate Heart sounds: S1 normal heart sound present and S2 normal heart sound present Peripheral pulses: Peripheral pulses 2+ throughout GI Inspection: Yes normal to inspection Palpation (GI): Soft to palpation, nontender, no guarding and not rigid Back/Spine/Pelvis Other: No midline thoracic/lumbar spinous tenderness/step-off or deformity Skin Rashes: no rashes Wounds: no wounds Neuro General: patient oriented x3, gait normal, tone normal, moves all extremities, no meningeal signs, no focal motor deficits and CN's II-XI intact bilaterally Cranial nerves: Yes CN's II-XII intact bilaterally Gait exam (Neuro): Normal gait present Motor exam (neuro): 5/5 motor strength present throughout Extrem Other: Bilateral shoulders without deformity. Nonfocally tender to palpation. Mild bilateral hand swelling noted. Nontender. Neurovascular intact. Full range of motion and strength intact. No weakness. Left 3rd digit with ring in place, patient reports chronic swelling to digit since 2nd digit amputation No erythema/warmth or crepitus Course Course Course Narrative: -1052--no leukocytosis. Labs otherwise reassuring. Troponin negative. Inflammatory markers WNL. Uric acid WNL CT cervical spine wo IV con IMPRESSION: Mild multilevel degenerative changes. No evidence of spinal canal stenosis or neural foraminal encroachment Fleischner guidelines were followed. XR hand LT min 3V/XR hand RT min 3V IMPRESSION: 1. Mild degenerative changes PIP and DIP joints both hands. No visible acute fracture or dislocation seen. 2. There is amputation of left second digit at the proximal metacarpal. >Results discussed with patient including worrisome signs and symptoms and strict return precautions, and when to return to the emergency department. They verbalized understanding and feel safe for discharge at this time. Medications Administered Discontinued Medications Generic Name Dose Route Start Last Admin Trade Name Freq PRN Reason Stop Dose Admin Ketorolac Tromethamine 30 mg 07/27/23 08:57 07/27/23 09:28 Ketorolac Tromethamine 30 Mg/Ml Vial IM 07/27/23 08:58 30 mg ONCE ONE Administration Prednisone 40 mg 07/27/23 10:54 07/27/23 11:07 Prednisone 20 Mg Tablet PO 07/27/23 10:55 40 mg ONCE ONE Administration Medical Decision Making Medical Decision Making [facility] Narrative: 52-year-old male with a past medical history of hepatitis-C, hernia, IVDA on Suboxone, anxiety, depression, hypertension, presenting to the ED complaining of bilateral shoulder pain radiating down bilateral upper extremities > hands with associated numbness/tingling and hand swelling x5 days. On exam mildly tachycardic, NAD, nontoxic-appearing, physical exam as noted above, no midline spinous tenderness throughout no focal neuro deficits. No appreciable upper extremity weakness. Pulses intact. No evidence of cellulitis. Concern for cervical radiculopathy vs arthritic flare vs ?Gout. Low suspicion for ACS, demyelinating process, cervical dissection. No evidence of infection/septic joint or arthritis. Plan: EKG, labs, x-ray, cervical spine CT, IM Toradol, re-evaluate Recommended ring removal from left 3rd digit however patient refusing. States chronically swollen finger x years Please refer to course for remaining clinical decision making, interpretation of labs/imaging results, and discussions with consultants and/or family members. Differential Diagnosis Differential Diagnoses: The differential diagnosis associated with the presentation includes As above Admission/Observation Consideration of admission/observation: Escalation of care including admission/observation considered Lab Data [facility] Lab Attestation statement: I reviewed the patient's lab results. 07/27/23 09:25 07/27/23 09:25 Labs: Lab Results 07/27/23 Range/Units 09:25 WBC 5.3 (4.8-10.8) X10*3/uL RBC 4.41 L (4.60-5.80) X10*6/uL Hgb 14.7 (14.0-18.0) g/dl Hct 43.0 (42.0-52.0) % MCV 97.5 (80.0-98.0) fL MCH 33.3 H (27.0-33.0) pg MCHC 34.2 (31.0-36.0) g/dl RDW 13.7 (11.0-16.0) % Plt Count 221 (160-400) X10*3/uL MPV 8.7 L (9.4-12.4) fL Immature Gran % (Auto) 0.2 (0.0-0.4) % Neut % (Auto) 68.9 (45-73) % Lymph % (Auto) 18.9 L (20-40) % [place] % (Auto) 7.8 (2-11) % Eos % (Auto) 3.8 (0-4) % Baso % (Auto) 0.4 (0-2) % Lymph # (Auto) 1.0 L (1.2-4.9) X10*3/uL [place] # (Auto) 0.4 (0.1-1.2) X10*3/uL Eos # (Auto) 0.2 (0.0-0.4) X10*3/uL Baso # (Auto) 0.0 (0.0-0.2) X10*3/uL Abs Immat Gran (auto) 0.01 (0.00-0.03) X10*3/uL Absolute Neuts (auto) 3.6 (2.0-8.3) x10*3/uL Absolute Nucleated RBC 0.000 (0.0-0.012) X10*3/uL Nucleated RBC % (auto) 0.0 (0.0-0.2) /100WBC ESR 8 (0-15) MM/HR Sodium 138 (135-145) mmol/L Potassium 4.2 (3.3-5.1) mmol/L Chloride 103 (96-108) mmol/L Carbon Dioxide 29 (22-29) mmol/L Anion Gap 10 L (12-20) BUN 14 (9-16) mg/dL Creatinine 0.79 (0.5-1.4) mg/dL Estim Creat Clear Calc 109.9 Estimated GFR > 60 Random Glucose 147 H (60-115) mg/dL Uric Acid 5.8 (3.4-7.0) mg/dL Calcium 9.6 (8.4-10.2) mg/dL Magnesium 1.9 (1.6-2.6) mg/dL Total Bilirubin 0.6 (0.0-1.0) mg/dL Direct Bilirubin 0.2 (0.0-0.5) mg/dL AST 27 (5-37) U/L ALT 19 (0-40) U/L Alkaline Phosphatase 74 (39-117) U/L Troponin I High Sens < 2.7 (<3.5-35.0) ng/L C-Reactive Protein 0.50 (< or = 0.50) mg/dL Total Protein 7.7 (6.5-8.0) g/dL Albumin 4.3 (3.5-5.0) g/dL Independent Interpretation I performed an independent interpretation of an: EKG, Plain X-Ray and CT Scan Radiology Impression Discussion of test interpretation with radiology: I have reviewed the radiologist's reading. External Record Review External record reviewed: Inpatient record, Office record, Outpatient record, Prior outpatient labs, Prior outpatient radiology, Primary care record and Outside ED record Tests considered The following testing was considered but not selected: As above Prescription Management I considered prescription management with: Pain Medication Social Determinants Patient?s care significantly limited by Social Determinants of Health including: Low income and Alcoholism and drug addiction in family Discharge Plan Discharge Clinical Impression: Cervical radiculopathy, Arthritis Patient Disposition: Home, Self-Care Instructions: Osteoarthritis (DC), Cervical Radiculopathy (ED) Additional Instructions: Your blood work and studies were reassuring. You do have arthritic changes Prednisone as a steroid which will help with swelling Toradol as an anti-inflammatory medicine take with food. Do not take both Toradol, Motrin/ibuprofen or Aleve, pick 1 medication as they are all the same class Flexeril as a muscle relaxer, take at night as it makes you drowsy, do not drive, drink alcohol or operate machinery while taking In addition you can take Tylenol Follow-up with your doctor Prescriptions: New prednisone 20 mg tablet 40 mg PO DAILY 5 Days Qty: 10 0RF acetaminophen [Tylenol Extra Strength] 500 mg tablet 500 mg PO Q6H PRN (Reason: fever or pain) Qty: 14 0RF ketorolac 10 mg tablet 10 mg PO TID PRN (Reason: pain) 5 Days Qty: 15 0RF cyclobenzaprine 5 mg tablet 5 mg PO Q8H PRN (Reason: pain (scale score 7-10)) 5 Days Qty: 14 0RF No Action Sublocade 300 mg/1.5 mL solution, extended rel syringe subcut oxycodone 5 mg tablet 5 mg PO Q6H PRN (Reason: pain (scale score 7-10)) Qty: 20 0RF Rx Instructions: Partial Fill upon patient request. doxycycline monohydrate 100 mg capsule 100 mg PO BID 10 Days Qty: 20 0RF venlafaxine 150 mg capsule,extended release 24hr 1 cap PO DAILY trazodone 100 mg tablet 2 tab PO BEDTIME PRN (Reason: Insomnia) prazosin 2 mg capsule 1 cap PO BEDTIME sennosides [Senna Lax] 8.6 mg Tablet 8.6 mg PO BEDTIME Qty: 30 0RF acetaminophen 325 mg Tablet 650 mg PO Q6H PRN (Reason: Pain, Mild (Pain Scale 1-3)) Qty: 1 0RF naproxen 500 mg tablet 500 mg PO BID PRN (Reason: pain) Qty: 14 0RF Rx Instructions: Take with food prednisone 50 mg tablet 50 mg PO DAILY 4 Days Qty: 4 0RF naloxone [Narcan] 4 mg/actuation spray,non-aerosol 4 mg intranasal Q2M PRN (Reason: opioid overdose) Qty: 2 0RF Rx Instructions: spray 1 dose into ONE nostril; alternate nostrils w each dose until help arrives Referrals: Silvia Fitzgerald MD [Primary Care Provider] - 5 days Interventions: ED Discharge Assessment Last Done: 07/27/23 11:11 Discharge Date/Time: 07/27/23 11:11
--- NOTE | 2023-07-27 08:58 | ECG_ITS ---
Test Reason : UE TINGLING Blood Pressure : / mmHG Vent. Rate : 065 BPM Atrial Rate : 065 BPM P-R Int : 144 ms QRS Dur : 094 ms QT Int : 386 ms P-R-T Axes : 011 007 026 degrees QTc Int : 401 ms Normal sinus rhythm Normal ECG When compared with ECG of 31-JUL-2021 22:53, No significant changes seen Referred By: Eliana Aviles Electronically Signed By:COREY BRANTLEY MD
[2023-07-27 09:28] LABS: MANUAL DIFF FLAG NO
[2023-07-27] MEDS: Ketorolac Tromethamine 30 MG/ML VIAL IM (09:28)
[2023-07-27 09:30] LABS: Basophils Percent Auto 0.4 % (0-2); Eosinophils Absolute Auto 0.2 X10*3/uL (0.0-0.4); Eosinophils Percent Auto 3.8 % (0-4); Hemoglobin 14.7 g/dl (14.0-18.0); Imm Gran Abs Auto 0.01 X10*3/uL (0.00-0.03); Imm Gran Pct Auto 0.2 % (0.0-0.4); Lymphocytes Percent Auto 18.9 % (20-40); Mean Corpuscular HGB Conc 34.2 g/dl (31.0-36.0); Mean Corpuscular Hemoglobin 33.3 pg (27.0-33.0); Mean Corpuscular Volume 97.5 fL (80.0-98.0); Mean Platelet Volume 8.7 fL (9.4-12.4); Monocytes Absolute Auto 0.4 X10*3/uL (0.1-1.2); Monocytes Percent Auto 7.8 % (2-11); Neutrophils Absolute Auto 3.6 x10*3/uL (2.0-8.3); Neutrophils Percent Auto 68.9 % (45-73); Platelet Count 221 X10*3/uL (160-400); Red Blood Count 4.41 X10*6/uL (4.60-5.80); Red Cell Distribution Width 13.7 % (11.0-16.0); White Blood Count 5.3 X10*3/uL (4.8-10.8)
[2023-07-27 09:48] LABS: Alanine Aminotransferase 19 U/L (0-40); Albumin Level 4.3 g/dL (3.5-5.0); Alkaline Phosphatase 74 U/L (39-117); Anion Gap 10 (12-20); Aspartate Amino Transferase 27 U/L (5-37); Bilirubin Direct 0.2 mg/dL (0.0-0.5); Bilirubin Total 0.6 mg/dL (0.0-1.0); Blood Urea Nitrogen 14 mg/dL (9-16); Calcium 9.6 mg/dL (8.4-10.2); Carbon Dioxide 29 mmol/L (22-29); Chloride 103 mmol/L (96-108); Creatinine Clr Calc Pharmacy 109.9; Estimated Glomerular Filt Rate > 60; Glucose Random 147 mg/dL (60-115); Magnesium 1.9 mg/dL (1.6-2.6); Potassium 4.2 mmol/L (3.3-5.1); Sodium 138 mmol/L (135-145); Total Protein 7.7 g/dL (6.5-8.0); Uric Acid 5.8 mg/dL (3.4-7.0)
--- NOTE | 2023-07-27 09:49 | PC.NURSE ---
alert and oriented, respirations even and unlabored. complaining of neck pain that radiates down his bilateral arms like a bus stop, one stop here and then another stop here . iv established, labs obtained and sent. medicated per the NOV. resting quietly in room with call osuna in reach.
[2023-07-27 09:56] LABS: Troponin-I High Sensitivity < 2.7 ng/L (<3.5-35.0)
[2023-07-27 10:07] LABS: Erythrocyte Sedimentation Rate 8 MM/HR (0-15)
[2023-07-27 10:12] VITALS: BP 136/78; PULSE 57; RESP 14; TEMP 37; O2SAT 95
--- NOTE | 2023-07-27 10:13 | PC.NURSE ---
patient continues to endorse pain at this time, especially in his right hand. vss, awaiting xrays
[2023-07-27] MEDS: predniSONE 20 MG TABLET 40 MG PO (11:07)
== END 2023-07-27 11:11 | disposition home or self-care (01) ==
PROVIDERS: Physician Assistant; Emergency Provider Emergency Medicine; PCP Internal Medicine
DX: M54.12 Radiculopathy, cervical region (principal); M54.2 Cervicalgia; R51.9 Headache, unspecified; R60.0 Localized edema; M79.642 Pain in left hand; M79.641 Pain in right hand; F41.1 Generalized anxiety disorder; F43.0 Acute stress reaction; R20.0 Anesthesia of skin; F17.210 Nicotine dependence, cigarettes, uncomplicated; Z71.6 Tobacco abuse counseling; Z79.899 Other long term (current) drug therapy
CPT/HCPCS: 36415; 72125; 73130; 80048; 80076; 83735; 84484; 84550; 85025; 85652; 86140; 93005; 96372; 99284; 99285; J1885

== ENCOUNTER 2023-08-03 02:40 | Emergency (ER) | payer OTHER, MEDICAID, SELFPAY ==
--- NOTE | 2023-08-03 | ECG_ITS ---
Test Reason : L ARM PAIN Blood Pressure : / mmHG Vent. Rate : 093 BPM Atrial Rate : 093 BPM P-R Int : 130 ms QRS Dur : 084 ms QT Int : 332 ms P-R-T Axes : 027 -02 025 degrees QTc Int : 412 ms Normal sinus rhythm Normal ECG When compared with ECG of 27-JUL-2023 09:29, No significant change was found Referred By: Generic ED Physician Electronically Signed By:COREY BRANTLEY MD
[2023-08-03 02:43] VITALS: BP 140/100; PULSE 98; RESP 16; TEMP 35.6; O2SAT 95; BMI 30.7
[2023-08-03 03:06] VITALS: BP 142/95; PULSE 100; RESP 20; O2SAT 99
--- NOTE | 2023-08-03 05:04 | ED.NECK ---
HPI - Neck Pain/Injury General Chief Complaint: Neck Pain/Injury Stated Complaint: Neck Pain Time Seen by Provider: 08/03/23 02:58 History of Present Illness HPI Narrative: she patient is a 52-year-old male presented today with having pain to the right side of his neck. Patient was evaluated in the emergency department about a week ago. Has a remote history of IV drug use. Patient had labs drawn last week which were all grossly negative. Had a CT scan of the C-spine which showed no gross cord compression. Continued to have pain in the neck area. Patient complaining of pain with certain movement especially bending his head backward. There is not much pain in turning his head. There is no fever no chills. Patient denies any diaphoresis. there is no chest pain. Related Data Home Medications Medication Instructions Recorded Confirmed prazosin 2 mg capsule 1 cap PO BEDTIME 07/28/21 02/23/22 trazodone 100 mg tablet 2 tab PO BEDTIME PRN Insomnia 07/28/21 02/23/22 venlafaxine 150 mg 1 cap PO DAILY 07/28/21 02/23/22 capsule,extended release 24 hr buprenorphine 300 mg/1.5 mL mg subcut 02/23/22 02/23/22 solution,exten.rel.subcutaneous syringe (Sublocade) Previous Rx's Medication Instructions Recorded acetaminophen 325 mg tablet 650 mg (2 x 325 mg) PO Q6H PRN 08/02/21 Pain, Mild (Pain Scale 1-3) #1 tab sennosides 8.6 mg tablet (Senna 8.6 mg PO BEDTIME #30 tabs 08/02/21 Lax) naproxen 500 mg tablet 500 mg PO BID PRN pain #14 tabs 02/07/22 oxycodone 5 mg tablet 5 mg PO Q6H PRN pain (scale score 03/01/22 7-10) #20 tabs doxycycline monohydrate 100 mg 100 mg PO BID 10 days #20 caps 09/24/22 capsule prednisone 50 mg tablet 50 mg PO DAILY 4 days #4 tabs 03/23/23 naloxone 4 mg/actuation nasal 4 mg intranasal Q2M PRN opioid 06/15/23 spray (Narcan) overdose #2 ea acetaminophen 500 mg tablet 500 mg PO Q6H PRN fever or pain 07/27/23 (Tylenol Extra Strength) #14 tabs cyclobenzaprine 5 mg tablet 5 mg PO Q8H PRN pain (scale score 07/27/23 7-10) 5 days #14 tabs ketorolac 10 mg tablet 10 mg PO TID PRN pain 5 days #15 07/27/23 tabs prednisone 20 mg tablet 40 mg (2 x 20 mg) PO DAILY 5 days 07/27/23 #10 tabs cyclobenzaprine 10 mg tablet 10 mg PO TID PRN pain #14 tabs 08/03/23 ibuprofen 400 mg tablet 400 mg PO Q6H PRN pain #20 tabs 08/03/23 Allergies Allergy/AdvReac Type Severity Reaction Status Date / Time No Known Allergies Allergy Verified 02/23/22 14:18 [No Known Allergies*] Review of Systems Review of Systems: Positive neck pain PMFSH Past Medical History Attestation statement: The following information was validated with the patient. Medical History Back pain History of ETOH abuse Chronic hepatitis C History of amputation of finger Hernia Opioid use disorder Intravenous drug abuse in remission Anxiety Depression HTN (hypertension) Surgical History Hx of surgical amputation of finger Family History Family History Mother Lung cancer Social History Social History Household Members: Family Housing: House Alcohol intake: current Alcohol intake frequency: a few times a week Patient Tobacco Use Status: Current everyday Tobacco user Tobacco use type: Cigarette Cigarette Packs Per Day: 1.0 Cigarettes Per Day: 20.0 Substance Use Type: Heroin and Marijuana Advance Directives: No Advance Directives Information Provided: Yes service: No Current occupational status: unemployed Physical Exam Vital Signs: Vital Signs: Last Vital Signs Temp 98.2 F 08/03/23 05:15 Pulse 65 08/03/23 05:15 Resp 20 08/03/23 03:06 BP 142/95 H 08/03/23 03:06 Pulse Ox 97 08/03/23 05:15 O2 Del Method Room Air 08/03/23 05:15 BMI result Body Mass Index 30.7 Appearance: Alert. Oriented X3. No acute distress. Eyes: Pupils equal, round and reactive to light. ENT: Pharynx normal. Neck: Normal inspection. Neck supple. No lymph nodes noted. No crepitus CVS: Normal heart rate and rhythm. Pulses normal. Normal S1 and S2 Respiratory: No respiratory distress. Breath sounds normal. No Wheezing. No rales Abdomen: Soft and nontender. No rigidity. No distention. good BS x4 Skin: Skin warm and dry. Normal skin color. Normal skin turgor. Extremities: No lower extremity edema. Neurovascular intact to all extremities. No Lacerations. No Rash Neuro: Oriented X 3. No motor deficit. No sensory deficit. Moving all extermities. No slurred speech Medications Administered Discontinued Medications Generic Name Dose Route Start Last Admin Trade Name Freq PRN Reason Stop Dose Admin Ketorolac Tromethamine 30 mg 08/03/23 04:54 08/03/23 05:21 Ketorolac Tromethamine 30 Mg/Ml Vial IVPUSH 08/03/23 04:55 30 mg ONCE ONE Administration Lorazepam 1 mg 08/03/23 04:53 08/03/23 05:20 Lorazepam 2 Mg/Ml Vial IVPUSH 08/03/23 04:54 1 mg ONCE ONE Administration Medical Decision Making Medical Decision Making MDM Narrative: Patient was seen in the emergency department a few days prior. At that time CRP and sed rate checked. As CT scan of the neck check. There is no gross evidence of spinal abscess. Patient again had low CRP and sed rate. Unlikely to have spinal abscess. Patient has pain in the shoulder area very similar to previous ED visit. Patient was given pain medication. Monitor closely in the emergency department. Previous CT scan was reviewed. Patient had CT scan of the neck done 3 days prior at the time was grossly negative for any acute evidence of obstruction. Patient neurologically intact pain worsened with movement has a previous history of narcotic use. Patient stated that he has not use for the last 5-10 years. patient to be discharged home. [place] at this time additional CT scan not needed. Differential Diagnosis Differential Diagnoses: The differential diagnosis associated with the presentation includes Admission/Observation Consideration of admission/observation: Escalation of care including admission/observation considered Patient has no sign of spinal abscess. No bowel urinary incontinence. No focal weakness. Pain consistent with cervical radiculopathy already had a CT scan done. Will discharge patient home. Patient did not want narcotics given history of narcotic use in the remote past. Lab Data MDM Lab Attestation statement: I reviewed the patient's lab results. 08/03/23 05:14 08/03/23 05:13 Labs: Lab Results 08/03/23 08/03/23 Range/Units 05:13 05:14 WBC 9.4 (4.8-10.8) X10*3/uL RBC 4.52 L (4.60-5.80) X10*6/uL Hgb 15.1 (14.0-18.0) g/dl Hct 43.5 (42.0-52.0) % MCV 96.2 (80.0-98.0) fL MCH 33.4 H (27.0-33.0) pg MCHC 34.7 (31.0-36.0) g/dl RDW 14.1 (11.0-16.0) % Plt Count 234 (160-400) X10*3/uL MPV 8.5 L (9.4-12.4) fL Immature Gran % (Auto) 0.5 H (0.0-0.4) % Neut % (Auto) 69.5 (45-73) % Lymph % (Auto) 16.6 L (20-40) % Angelina % (Auto) 8.5 (2-11) % Eos % (Auto) 4.6 H (0-4) % Baso % (Auto) 0.3 (0-2) % Lymph # (Auto) 1.6 (1.2-4.9) X10*3/uL Angelina # (Auto) 0.8 (0.1-1.2) X10*3/uL Eos # (Auto) 0.4 (0.0-0.4) X10*3/uL Baso # (Auto) 0.0 (0.0-0.2) X10*3/uL Abs Immat Gran (auto) 0.05 H (0.00-0.03) X10*3/uL Absolute Neuts (auto) 6.5 (2.0-8.3) x10*3/uL Absolute Nucleated RBC 0.000 (0.0-0.012) X10*3/uL Nucleated RBC % (auto) 0.0 (0.0-0.2) /100WBC ESR 5 (0-15) MM/HR Sodium 138 (135-145) mmol/L Potassium 4.3 (3.3-5.1) mmol/L Chloride 103 (96-108) mmol/L Carbon Dioxide 26 (22-29) mmol/L Anion Gap 13 (12-20) BUN 31 H (9-16) mg/dL Creatinine 0.80 (0.5-1.4) mg/dL Estim Creat Clear Calc 108.6 Estimated GFR > 60 Random Glucose 102 (60-115) mg/dL Calcium 9.0 D (8.4-10.2) mg/dL C-Reactive Protein 0.70 H (< or = 0.50) mg/dL External Record Review External record reviewed: Inpatient record Previous CT scan report Prescription Management I considered prescription management with: Pain Medication no narcotics was given Chronic Conditions history of polysubstance abuse history of cervical radiculopathy history of epidural abscess Discharge Plan Discharge Clinical Impression: Cervical radiculopathy Patient Disposition: Home, Self-Care Instructions: Cervical Radiculopathy (ED) Prescriptions: New cyclobenzaprine 10 mg tablet 10 mg PO TID PRN (Reason: pain) Qty: 14 0RF ibuprofen 400 mg tablet 400 mg PO Q6H PRN (Reason: pain) Qty: 20 0RF No Action Sublocade 300 mg/1.5 mL solution, extended rel syringe subcut oxycodone 5 mg tablet 5 mg PO Q6H PRN (Reason: pain (scale score 7-10)) Qty: 20 0RF Rx Instructions: Partial Fill upon patient request. doxycycline monohydrate 100 mg capsule 100 mg PO BID 10 Days Qty: 20 0RF venlafaxine 150 mg capsule,extended release 24hr 1 cap PO DAILY trazodone 100 mg tablet 2 tab PO BEDTIME PRN (Reason: Insomnia) prazosin 2 mg capsule 1 cap PO BEDTIME sennosides [Senna Lax] 8.6 mg Tablet 8.6 mg PO BEDTIME Qty: 30 0RF acetaminophen 325 mg Tablet 650 mg PO Q6H PRN (Reason: Pain, Mild (Pain Scale 1-3)) Qty: 1 0RF naproxen 500 mg tablet 500 mg PO BID PRN (Reason: pain) Qty: 14 0RF Rx Instructions: Take with food prednisone 50 mg tablet 50 mg PO DAILY 4 Days Qty: 4 0RF naloxone [Narcan] 4 mg/actuation spray,non-aerosol 4 mg intranasal Q2M PRN (Reason: opioid overdose) Qty: 2 0RF Rx Instructions: spray 1 dose into ONE nostril; alternate nostrils w each dose until help arrives prednisone 20 mg tablet 40 mg PO DAILY 5 Days Qty: 10 0RF acetaminophen [Tylenol Extra Strength] 500 mg tablet 500 mg PO Q6H PRN (Reason: fever or pain) Qty: 14 0RF ketorolac 10 mg tablet 10 mg PO TID PRN (Reason: pain) 5 Days Qty: 15 0RF cyclobenzaprine 5 mg tablet 5 mg PO Q8H PRN (Reason: pain (scale score 7-10)) 5 Days Qty: 14 0RF Referrals: [facility] [Primary Care Provider] - 08/06/23
[2023-08-03 05:15] VITALS: PULSE 65; TEMP 36.8; O2SAT 97
[2023-08-03 05:20] LABS: MANUAL DIFF FLAG NO
[2023-08-03] MEDS: LORazepam 2 MG/ML VIAL 1 MG IVPUSH (05:20)
[2023-08-03 05:21] LABS: Basophils Percent Auto 0.3 % (0-2); Eosinophils Absolute Auto 0.4 X10*3/uL (0.0-0.4); Eosinophils Percent Auto 4.6 % (0-4); Hematocrit 43.5 % (42.0-52.0); Hemoglobin 15.1 g/dl (14.0-18.0); Imm Gran Abs Auto 0.05 X10*3/uL (0.00-0.03); Imm Gran Pct Auto 0.5 % (0.0-0.4); Lymphocytes Absolute Auto 1.6 X10*3/uL (1.2-4.9); Lymphocytes Percent Auto 16.6 % (20-40); Mean Corpuscular HGB Conc 34.7 g/dl (31.0-36.0); Mean Corpuscular Hemoglobin 33.4 pg (27.0-33.0); Mean Corpuscular Volume 96.2 fL (80.0-98.0); Mean Platelet Volume 8.5 fL (9.4-12.4); Monocytes Absolute Auto 0.8 X10*3/uL (0.1-1.2); Monocytes Percent Auto 8.5 % (2-11); Neutrophils Absolute Auto 6.5 x10*3/uL (2.0-8.3); Neutrophils Percent Auto 69.5 % (45-73); Platelet Count 234 X10*3/uL (160-400); Red Blood Count 4.52 X10*6/uL (4.60-5.80); Red Cell Distribution Width 14.1 % (11.0-16.0); White Blood Count 9.4 X10*3/uL (4.8-10.8)
[2023-08-03] MEDS: Ketorolac Tromethamine 30 MG/ML VIAL IVPUSH (05:21)
[2023-08-03 05:36] LABS: Anion Gap 13 (12-20); Blood Urea Nitrogen 31 mg/dL (9-16); Carbon Dioxide 26 mmol/L (22-29); Chloride 103 mmol/L (96-108); Creatinine Clr Calc Pharmacy 108.6; Estimated Glomerular Filt Rate > 60; Glucose Random 102 mg/dL (60-115); Potassium 4.3 mmol/L (3.3-5.1); Sodium 138 mmol/L (135-145)
[2023-08-03 06:03] LABS: Erythrocyte Sedimentation Rate 5 MM/HR (0-15)
== END 2023-08-03 08:28 | disposition home or self-care (01) ==
PROVIDERS: Emergency Provider Emergency Medicine Emergency Medical Services
DX: M54.12 Radiculopathy, cervical region (principal); M54.2 Cervicalgia; M79.602 Pain in left arm; F17.210 Nicotine dependence, cigarettes, uncomplicated; Z71.6 Tobacco abuse counseling; Z79.899 Other long term (current) drug therapy
CPT/HCPCS: 36415; 80048; 85025; 85652; 86140; 93005; 96374; 96375; 99284; 99285; J1885; J2060

== ENCOUNTER 2023-08-07 04:16 | Emergency (ER) | payer OTHER, MEDICAID, SELFPAY ==
[2023-08-07 04:25] VITALS: BP 134/84; PULSE 80; O2SAT 100
--- NOTE | 2023-08-07 04:38 | ED_ITS ---
HPI - General Adult General Chief complaint: General Medical Stated complaint: pinched nerve Time Seen by Provider: 08/07/23 04:24 Source: patient Mode of arrival: EMS Limitations: no limitations History of Present Illness HPI narrative: Patient comes to the emergency room complaining of cervical radiculopathy radiating towards the left arm. Patient states that he has been seen multiple times in the ER for the cervical radiculopathy. Patient states that today the patient was comparable and decided to come to the emergency room. Patient states that he ran out of muscle relaxants. Per EMS, patient received 30 mg of ketorolac IM. Patient describing shooting pain radiating from the neck towards the left arm, worsened by certain arm or neck movement. Patient states that after he was discharged from the hospital on July 27, the muscle relaxant were working well for a few days. However shortly after, the pain returned Related Data Home Medications Medication Instructions Recorded Confirmed prazosin 2 mg capsule 1 cap PO BEDTIME 07/28/21 02/23/22 trazodone 100 mg tablet 2 tab PO BEDTIME PRN Insomnia 07/28/21 02/23/22 venlafaxine 150 mg 1 cap PO DAILY 07/28/21 02/23/22 capsule,extended release 24 hr buprenorphine 300 mg/1.5 mL mg subcut 02/23/22 02/23/22 solution,exten.rel.subcutaneous syringe (Sublocade) Previous Rx's Medication Instructions Recorded acetaminophen 325 mg tablet 650 mg (2 x 325 mg) PO Q6H PRN 08/02/21 Pain, Mild (Pain Scale 1-3) #1 tab sennosides 8.6 mg tablet (Senna 8.6 mg PO BEDTIME #30 tabs 08/02/21 Lax) naproxen 500 mg tablet 500 mg PO BID PRN pain #14 tabs 02/07/22 oxycodone 5 mg tablet 5 mg PO Q6H PRN pain (scale score 03/01/22 7-10) #20 tabs doxycycline monohydrate 100 mg 100 mg PO BID 10 days #20 caps 09/24/22 capsule prednisone 50 mg tablet 50 mg PO DAILY 4 days #4 tabs 03/23/23 naloxone 4 mg/actuation nasal 4 mg intranasal Q2M PRN opioid 06/15/23 spray (Narcan) overdose #2 ea acetaminophen 500 mg tablet 500 mg PO Q6H PRN fever or pain 07/27/23 (Tylenol Extra Strength) #14 tabs cyclobenzaprine 5 mg tablet 5 mg PO Q8H PRN pain (scale score 07/27/23 7-10) 5 days #14 tabs ketorolac 10 mg tablet 10 mg PO TID PRN pain 5 days #15 07/27/23 tabs prednisone 20 mg tablet 40 mg (2 x 20 mg) PO DAILY 5 days 07/27/23 #10 tabs cyclobenzaprine 10 mg tablet 10 mg PO TID PRN pain #14 tabs 08/03/23 ibuprofen 400 mg tablet 400 mg PO Q6H PRN pain #20 tabs 08/03/23 diazepam 2 mg tablet 2 mg PO BEDTIME PRN muscle spasm 08/07/23 #7 tabs ketorolac 10 mg tablet 10 mg PO TID PRN pain #15 tabs 08/07/23 Allergies Allergy/AdvReac Type Severity Reaction Status Date / Time No Known Allergies Allergy Verified 02/23/22 14:18 [No Known Allergies*] Review of Systems Review of Systems: Constitutional : No Weight loss, No Fever, No Chills, No Night Sweats, No Fatigue, No Malaise ENT/Mouth : No Hearing loss, No Ear Pain, No Nasal Congestion, No Sinus Pain, No Hoarseness, No sore throat, No Rhinorrhea, No Swallowing Difficulty Eyes: No Eye Pain, No Swelling, No Redness, No Foreign Body, No Discharge, No Vision Changes Cardiovascular : No Chest Pain, No SOB, No Dyspnea on Exertion, No Orthopnea, No Edema, No Palpitations Respiratory : No Cough, No Sputum, No Wheezing, No Smoke Exposure, No Dyspnea Gastrointestinal : No Nausea, No Vomiting, No Diarrhea, No Constipation, No abdominal Pain, No Hematochezia, No Melena Genitourinary : no irregular bleeding, No Dysuria, No Urinary Frequency, No Hematuria, No Urinary Incontinence, No Urgency, No Flank Pain, No Urinary Flow Changes, No Hesitancy Musculoskeletal : No joint pain, No Myalgias, No Joint Swelling Skin : No Skin Lesions, No rash Neuro : Complaining of cervical radiculopathy radiating from the neck, shooting pain towards the left arm in pulses No Weakness, No Numbness, No Paresthesias, No Loss of Consciousness, No Dizziness, No Headache Psych : No Anxiety/Panic, No Depression, No SI/HI/AH/VH, No Social Issues, Heme/Lymph: No Bruising, No Bleeding,No Lymphadenopathy Endocrine : No Polyuria, No Polydipsia, No Temperature Intolerance [facility] Past Medical History Medical History Back pain History of ETOH abuse Chronic hepatitis C History of amputation of finger Hernia Opioid use disorder Intravenous drug abuse in remission Anxiety Depression HTN (hypertension) Surgical History Hx of surgical amputation of finger Family History Family History Mother Lung cancer Social History Social History Household Members: Family Housing: House Alcohol intake: current Alcohol intake frequency: a few times a week Patient Tobacco Use Status: Current everyday Tobacco user Tobacco use type: Cigarette Cigarette Packs Per Day: 1.0 Cigarettes Per Day: 20.0 Smoked in Last 30 Days: Yes Substance Use Type: Heroin and Marijuana Advance Directives: No Advance Directives Information Provided: Yes service: No Current occupational status: unemployed Physical Exam ED Vital Signs: Vital Signs - 24 hr 08/07/23 04:41 08/07/23 04:45 08/07/23 04:56 Temperature 97.9 F Pulse Rate 76 72 69 Respiratory Rate 15 18 18 Blood Pressure 137/101 H 137/98 H 123/85 Pulse Oximetry 98 96 95 Oxygen Delivery Method Room Air Room Air BMI result Body Mass Index 30.7 Const Other: Appearance: Alert. Oriented X3. Tearful Eyes: Pupils equal, round and reactive to light. ENT: Pharynx normal. Neck: Normal inspection. Neck supple. No lymph nodes noted. No crepitus CVS: Normal heart rate and rhythm. Pulses normal. Normal S1 and S2 Respiratory: No respiratory distress. Breath sounds normal. No Wheezing. No rales Abdomen: Soft and nontender. No rigidity. No distention. Skin: Skin warm and dry. Normal skin color. Normal skin turgor. Extremities: No lower extremity edema. No Lacerations. No Rash Neuro: Oriented X 3. No motor deficit. No sensory deficit. Moving all extremities. No slurred speech. CN 2 through 12 grossly intact Psych: calm, cooperative, normal affect Course Course Course Narrative: -patient recently had a cervical spine CT. Patient has multi liver degenerative changes, no evidence of spinal canal stenosis. -I reviewed patient's history, patient has history of IV drug use. Patient states that he has not used any IV drugs in several months. -in the emergency room, patient received 30 mg of IM Toradol, total of 60 mg including EMS, and p.o. diazepam. Medications Administered Discontinued Medications Generic Name Dose Route Start Last Admin Trade Name Gris PRN Reason Stop Dose Admin Diazepam 2 mg 08/07/23 04:36 08/07/23 04:52 Diazepam 2 Mg Tablet PO 08/07/23 04:37 2 mg ONCE ONE Administration Ketorolac Tromethamine 30 mg 08/07/23 04:36 08/07/23 04:52 Ketorolac Tromethamine 30 Mg/Ml Vial IM 08/07/23 04:37 30 mg ONCE ONE Administration Medical Decision Making Medical Decision Making MDM Narrative: -I reviewed patient's past medical records. -patient has been seen multiple times in this ED for the same complaint. Patient comes in with the same presentation. In his previous visit, labs were drawn, ESR and CRP levels were normal -I reviewed the radiology imaging from patient's previous visits, no concern for obvious spinal stenosis or cervical spine abscess. -patient got significant relief from Toradol and diazepam p.o.. Patient was able to sleep comfortably here in the emergency room. Patient ready for discharge. -discussed with the patient to follow-up with spine surgery in his primary care physician. -also, I discussed with the patient today I will send him a small prescription of diazepam p.o., but I stressed he is not to work or drive. Medication is prescribed specifically for bedtime Differential Diagnosis Differential Diagnoses: The differential diagnosis associated with the presentation includes (Cervical spine stenosis, cervical radiculopathy) Discharge Plan Discharge Clinical Impression: Cervical radiculopathy Patient Disposition: Home, Self-Care Instructions: Cervical Radiculopathy (ED) Additional Instructions: You may use ketorolac p.o. during the daytime. However, do not use diazepam be fore driving or going to work. Only use at bedtime. Please follow-up with your primary care physician tomorrow. If you have any worsening or new symptoms, please return to the emergency room or call 911 Prescriptions: New ketorolac 10 mg tablet 10 mg PO TID PRN (Reason: pain) Qty: 15 0RF Rx Instructions: Do not take this medication with other NSAIDs such as ibuprofen, naproxen. diazepam 2 mg tablet 2 mg PO BEDTIME PRN (Reason: muscle spasm) Qty: 7 0RF No Action Sublocade 300 mg/1.5 mL solution, extended rel syringe subcut oxycodone 5 mg tablet 5 mg PO Q6H PRN (Reason: pain (scale score 7-10)) Qty: 20 0RF Rx Instructions: Partial Fill upon patient request. doxycycline monohydrate 100 mg capsule 100 mg PO BID 10 Days Qty: 20 0RF venlafaxine 150 mg capsule,extended release 24hr 1 cap PO DAILY trazodone 100 mg tablet 2 tab PO BEDTIME PRN (Reason: Insomnia) prazosin 2 mg capsule 1 cap PO BEDTIME sennosides [Senna Lax] 8.6 mg Tablet 8.6 mg PO BEDTIME Qty: 30 0RF acetaminophen 325 mg Tablet 650 mg PO Q6H PRN (Reason: Pain, Mild (Pain Scale 1-3)) Qty: 1 0RF naproxen 500 mg tablet 500 mg PO BID PRN (Reason: pain) Qty: 14 0RF Rx Instructions: Take with food prednisone 50 mg tablet 50 mg PO DAILY 4 Days Qty: 4 0RF naloxone [Narcan] 4 mg/actuation spray,non-aerosol 4 mg intranasal Q2M PRN (Reason: opioid overdose) Qty: 2 0RF Rx Instructions: spray 1 dose into ONE nostril; alternate nostrils w each dose until help arrives prednisone 20 mg tablet 40 mg PO DAILY 5 Days Qty: 10 0RF acetaminophen [Tylenol Extra Strength] 500 mg tablet 500 mg PO Q6H PRN (Reason: fever or pain) Qty: 14 0RF ketorolac 10 mg tablet 10 mg PO TID PRN (Reason: pain) 5 Days Qty: 15 0RF cyclobenzaprine 5 mg tablet 5 mg PO Q8H PRN (Reason: pain (scale score 7-10)) 5 Days Qty: 14 0RF cyclobenzaprine 10 mg tablet 10 mg PO TID PRN (Reason: pain) Qty: 14 0RF ibuprofen 400 mg tablet 400 mg PO Q6H PRN (Reason: pain) Qty: 20 0RF Referrals: Boogie Mckinnon MD, PhD [Physician] - 08/08/23 Boogie Mckinnon MD, PhD [Physician] -
[2023-08-07 04:41] VITALS: BP 137/101; PULSE 76; RESP 15; TEMP 36.6; O2SAT 98
[2023-08-07 04:45] VITALS: BP 137/98; PULSE 72; RESP 18; O2SAT 96; BMI 30.7
[2023-08-07] MEDS: Ketorolac Tromethamine 30 MG/ML VIAL IM (04:52)
[2023-08-07] MEDS: diazePAM 2 MG TABLET PO (04:52)
[2023-08-07 04:56] VITALS: BP 123/85; PULSE 69; RESP 18; O2SAT 95
== END 2023-08-07 06:30 | disposition home or self-care (01) ==
PROVIDERS: Emergency Provider Emergency Medicine
DX: M54.12 Radiculopathy, cervical region (principal); F17.210 Nicotine dependence, cigarettes, uncomplicated
CPT/HCPCS: 96372; 99284; J1885

== ENCOUNTER 2023-08-08 04:25 | Emergency (ER) | payer OTHER, MEDICAID, SELFPAY ==
[2023-08-08 04:26] VITALS: BP 124/95; PULSE 82; RESP 16; TEMP 36.7; O2SAT 97; BMI 30.7
[2023-08-08 06:02] VITALS: BP 106/87; PULSE 74; RESP 16; O2SAT 96
--- NOTE | 2023-08-08 06:37 | ED_ITS ---
HPI - General Adult General Chief complaint: General Medical Stated complaint: gen med Time Seen by Provider: 08/08/23 06:37 Source: patient Mode of arrival: ambulatory Limitations: no limitations History of Present Illness HPI narrative: Patient is a 52 year old assigned male at with a history of cervical radiculopathy presenting to the emergency department today with left neck and arm pain. Patient states that the muscle relaxers he previously got worked well but the medications he got on 08/07/2023 did not work. Patient denies any dizziness, lightheadedness, abdominal pain, nausea, vomiting, fever, chills, blurry vision, double vision, loss of vision, chest pain, difficulty breathing, shortness of breath, back pain, night sweats, pain with urination, increased urinary frequency, increased urinary urgency, blood in his urine or stool, syncope or a near syncopal episode, recent trauma or falls, bowel incontinence, bladder incontinence, bowel retention, bladder retention, or any other complaints at this time. Onset (ago): day(s) Location: neck, left and upper extremity Radiation: extremity Severity: mild Severity scale (1-10): 3 Quality: aching and dull Pain Consistency: constant Relieving factors: none Exacerbating factors: none Associated symptoms: denies other symptoms Treatments prior to arrival: other (muscle realxers) Related Data Home Medications Medication Instructions Recorded Confirmed prazosin 2 mg capsule 1 cap PO BEDTIME 07/28/21 02/23/22 trazodone 100 mg tablet 2 tab PO BEDTIME PRN Insomnia 07/28/21 02/23/22 venlafaxine 150 mg 1 cap PO DAILY 07/28/21 02/23/22 capsule,extended release 24 hr buprenorphine 300 mg/1.5 mL mg subcut 02/23/22 02/23/22 solution,exten.rel.subcutaneous syringe (Sublocade) Previous Rx's Medication Instructions Recorded acetaminophen 325 mg tablet 650 mg (2 x 325 mg) PO Q6H PRN 08/02/21 Pain, Mild (Pain Scale 1-3) #1 tab sennosides 8.6 mg tablet (Senna 8.6 mg PO BEDTIME #30 tabs 08/02/21 Lax) naproxen 500 mg tablet 500 mg PO BID PRN pain #14 tabs 02/07/22 oxycodone 5 mg tablet 5 mg PO Q6H PRN pain (scale score 03/01/22 7-10) #20 tabs doxycycline monohydrate 100 mg 100 mg PO BID 10 days #20 caps 09/24/22 capsule prednisone 50 mg tablet 50 mg PO DAILY 4 days #4 tabs 03/23/23 naloxone 4 mg/actuation nasal 4 mg intranasal Q2M PRN opioid 06/15/23 spray (Narcan) overdose #2 ea acetaminophen 500 mg tablet 500 mg PO Q6H PRN fever or pain 07/27/23 (Tylenol Extra Strength) #14 tabs cyclobenzaprine 5 mg tablet 5 mg PO Q8H PRN pain (scale score 07/27/23 7-10) 5 days #14 tabs ketorolac 10 mg tablet 10 mg PO TID PRN pain 5 days #15 07/27/23 tabs prednisone 20 mg tablet 40 mg (2 x 20 mg) PO DAILY 5 days 07/27/23 #10 tabs cyclobenzaprine 10 mg tablet 10 mg PO TID PRN pain #14 tabs 08/03/23 ibuprofen 400 mg tablet 400 mg PO Q6H PRN pain #20 tabs 08/03/23 diazepam 2 mg tablet 2 mg PO BEDTIME PRN muscle spasm 08/07/23 #7 tabs ketorolac 10 mg tablet 10 mg PO TID PRN pain #15 tabs 08/07/23 cyclobenzaprine 10 mg tablet 10 mg PO TID PRN muscle spasm 7 08/08/23 days #21 tabs prednisone 20 mg tablet 20 mg PO DAILY 7 days #7 tabs 08/08/23 Allergies Allergy/AdvReac Type Severity Reaction Status Date / Time No Known Allergies Allergy Verified 02/23/22 14:18 [No Known Allergies*] Review of Systems Constitutional: Constitutional: Reports no additional constitutional complaints, Denies chills, Denies fever(s) and Denies night sweats Eyes: Eyes: Reports no additional eye complaints, Denies blurry vision, Denies change in vision, Denies diplopia, Denies eye discharge, Denies loss of vision and Denies eye pain ENT: Denies dizziness and Reports neck pain Cardiovascular: Cardiovascular: Reports no additional cardiovascular complaints, Denies chest pain, Denies lightheadedness, Denies Loss of Consciousness and Denies dyspnea Respiratory: Respiratory: Reports no additional respiratory complaints and Denies dyspnea Gastrointestinal: Gastrointestinal: Reports no additional gastrointestinal complaints, Denies abdominal pain, Denies melena, Denies hematochezia, Denies change in bowel habits and Denies change in stool character Genitourinary: Genitourinary: Reports no additional male genitourinary complaints, Denies hematuria, Denies oliguria, Denies difficulty urinating, Denies dysuria, Denies urinary frequency, Denies urinary hesitancy, Denies uri nary incontinence and Denies urinary urgency Musculoskeletal: Musculoskeletal: Reports no additional musculoskeletal complaints, Reports neck pain, Denies numbness and Denies tingling Neurologic: Denies dizziness, Denies loss of vision, Denies numbness and Denies tingling Psychiatric: Psychiatric: Reports no additional psychiatric complaints Endocrine: Endocrine: Reports no additional endocrine complaints Hematologic/Lymphatic: Hematologic/Lymphatic: Reports no additional hematologic/lymphatic complaints Allergic/Immunologic: Allergic/Immunologic: Reports no additional allergic/immunologic complaints PMFSH Past Medical History Attestation statement: The following information was validated with the patient. Source: old records reviewed and nursing notes reviewed Medical History Back pain History of ETOH abuse Chronic hepatitis C History of amputation of finger Hernia Opioid use disorder Intravenous drug abuse in remission Anxiety Depression HTN (hypertension) Surgical History Hx of surgical amputation of finger Family History Family History Mother Lung cancer Social History Social History Household Members: Family Housing: House Alcohol intake: current Alcohol intake frequency: a few times a week Patient Tobacco Use Status: Current everyday Tobacco user Tobacco use type: Cigarette Cigarette Packs Per Day: 1.0 Cigarettes Per Day: 20.0 Substance Use Type: Heroin and Marijuana Advance Directives: No Advance Directives Information Provided: No service: No Current occupational status: unemployed Physical Exam ED Vital Signs: Vital Signs - 24 hr 08/08/23 04:26 08/08/23 06:02 Temperature 98.1 F Pulse Rate 82 74 Respiratory Rate 16 16 Blood Pressure 124/95 H 106/87 Pulse Oximetry 97 96 Oxygen Delivery Method Room Air Room Air BMI result Body Mass Index 30.7 Const General: cooperative, no acute distress, alert and awake Nutritional Appearance: well nourished Orientation/consciousness: patient oriented x3 Limitations: no limitations HENMT Head: Yes normal to inspection and Yes atraumatic Ears: hearing grossly normal bilaterally and external ears normal General nose exam: Normal external nose present, no nasal discharge noted and no epistaxis Face and sinus: Yes normal facial exam, No abrasion and No laceration Mouth: Normal oral and palatal mucosa present, no drooling and no muffled voice Eyes General: appearance normal, both eyes and all related structures Periorbital: periorbital findings normal Eyelids: Yes eyelids normal Conjunctivae: conjunctivae normal Pupils: Equal, round and reactive pupils present EOM: EOMs intact bilaterally Neck Neck: Yes normal visual inspection, Yes full ROM and Yes no lymphadenopathy Chest Chest palpation & inspection: normal inspection of the chest Resp Effort & Inspection: normal respiratory effort and able to speak in complete sentences GI Inspection: Yes normal to inspection Neuro General: patient oriented x3 and moves all extremities Cranial nerves: Yes Equal, round and reactive pupils present Cognition (Neuro): normal cognition Motor exam (neuro): 5/5 motor strength present throughout Sensory Exam: Normal double simultaneous stimulation for sensation Coordination: [id number] test normal Extrem General: Yes normal to inspection, Yes full ROM and Yes capillary refill normal Psych Appearance: grossly normal Mental Status: mental status grossly normal Affect: normal affect Attitude: cooperative Thought process: Normal thought process present Thought content: Normal thought content present Insight: Good insight present (Psych) Medical Decision Making Medical Decision Making MDM Narrative: Patient is a 52 year old assigned male at with a history of cervical radiculopathy presenting to the emergency department today with left neck and extremity pain. Patient's physical exam was unremarkable. I explained my physical exam findings to the patient. I answered all questions asked by the patient. I explained to the patient that there is nothing further we can do for him from an emergency medicine stand point and that he needs to follow up with a talent management specialist. I stressed the importance of the patient taking his medication as prescribed. I stressed the importance of the patient following up with his primary care provider and a talent management specialist. I stressed the importance of the patient returning to the emergency department immediately if his symptoms were to worsen or if he were to develop any dizziness, shortness of breath, difficulty breathing, chest pain, blurry vision, loss of vision, nausea, vomiting, abdominal pain, fever, chills, back pain, or any other complaints. Patient verbalized agreement and understanding with this treatment plan and discharge. Differential Diagnosis Differential Diagnoses: The differential diagnosis associated with the presentation includes Cervical radiculopathy Prescription Management I considered prescription management with: Pain Medication (pain medication prescribed.) Discharge Plan Discharge Clinical Impression: Cervical radiculopathy Patient Disposition: Home, Self-Care Instructions: Cervical Radiculopathy (ED) Additional Instructions: Follow up with your primary care provider and a talent management specialist. Return to the emergency department immediately if your symptoms worsen or if you develop any dizziness, shortness of breath, difficulty breathing, chest pain, blurry vision, loss of vision, nausea, vomiting, abdominal pain, fever, chills, back pain, or any other complaints. Prescriptions: New cyclobenzaprine 10 mg tablet 10 mg PO TID PRN (Reason: muscle spasm) 7 Days Qty: 21 0RF prednisone 20 mg tablet 20 mg PO DAILY 7 Days Qty: 7 0RF No Action Sublocade 300 mg/1.5 mL solution, extended rel syringe subcut oxycodone 5 mg tablet 5 mg PO Q6H PRN (Reason: pain (scale score 7-10)) Qty: 20 0RF Rx Instructions: Partial Fill upon patient request. doxycycline monohydrate 100 mg capsule 100 mg PO BID 10 Days Qty: 20 0RF venlafaxine 150 mg capsule,extended release 24hr 1 cap PO DAILY trazodone 100 mg tablet 2 tab PO BEDTIME PRN (Reason: Insomnia) prazosin 2 mg capsule 1 cap PO BEDTIME sennosides [Senna Lax] 8.6 mg Tablet 8.6 mg PO BEDTIME Qty: 30 0RF acetaminophen 325 mg Tablet 650 mg PO Q6H PRN (Reason: Pain, Mild (Pain Scale 1-3)) Qty: 1 0RF naproxen 500 mg tablet 500 mg PO BID PRN (Reason: pain) Qty: 14 0RF Rx Instructions: Take with food prednisone 50 mg tablet 50 mg PO DAILY 4 Days Qty: 4 0RF naloxone [Narcan] 4 mg/actuation spray,non-aerosol 4 mg intranasal Q2M PRN (Reason: opioid overdose) Qty: 2 0RF Rx Instructions: spray 1 dose into ONE nostril; alternate nostrils w each dose until help arrives prednisone 20 mg tablet 40 mg PO DAILY 5 Days Qty: 10 0RF acetaminophen [Tylenol Extra Strength] 500 mg tablet 500 mg PO Q6H PRN (Reason: fever or pain) Qty: 14 0RF ketorolac 10 mg tablet 10 mg PO TID PRN (Reason: pain) 5 Days Qty: 15 0RF cyclobenzaprine 5 mg tablet 5 mg PO Q8H PRN (Reason: pain (scale score 7-10)) 5 Days Qty: 14 0RF cyclobenzaprine 10 mg tablet 10 mg PO TID PRN (Reason: pain) Qty: 14 0RF ibuprofen 400 mg tablet 400 mg PO Q6H PRN (Reason: pain) Qty: 20 0RF ketorolac 10 mg tablet 10 mg PO TID PRN (Reason: pain) Qty: 15 0RF Rx Instructions: Do not take this medication with other NSAIDs such as ibuprofen, naproxen. diazepam 2 mg tablet 2 mg PO BEDTIME PRN (Reason: muscle spasm) Qty: 7 0RF Referrals: [facility] Family [facility] [Provider Group] (Call to establish and follow up with a primary care provider. If you already have a primary care provider, please follow up with them.) [facility] [Provider Group] (Call to establish and follow up with a primary care provider. If you already have a primary care provider, rupert se follow up with them.) [facility] [Provider Group] (Call to establish and follow up with a primary care provider. If you already have a primary care provider, please follow up with them.) [facility] [Provider Group] (Call to establish and follow up with a talent management specialist. ) Interventions: ED Discharge Assessment Last Done: 08/08/23 06:50 Discharge Date/Time: 08/08/23 06:52 Print Language: Urdu
== END 2023-08-08 06:52 | disposition home or self-care (01) ==
PROVIDERS: Emergency Provider Internal Medicine
DX: M54.12 Radiculopathy, cervical region (principal); M54.2 Cervicalgia; M79.602 Pain in left arm; F17.210 Nicotine dependence, cigarettes, uncomplicated; Z71.6 Tobacco abuse counseling; Z79.899 Other long term (current) drug therapy
CPT/HCPCS: 99284

== ENCOUNTER 2023-08-09 16:53 | Emergency (ER) | payer OTHER, MEDICAID, SELFPAY ==
[2023-08-09 17:22] VITALS: BP 90/45; BP 97/65; PULSE 109; PULSE 87; RESP 13; TEMP 37.2; O2SAT 94; O2SAT 95; BMI 31.8
--- NOTE | 2023-08-09 17:27 | PC.NURSE ---
pt reports taking 2 Valium unknown mg stength, , 2 flexeril and 6-7 shots with marijuana. he reports he did this because he is in pain, neck pain from pinched nerve. pt denies SI
[2023-08-09 17:33] VITALS: O2SAT 83
--- NOTE | 2023-08-09 17:47 | ED.GENADULT ---
HPI - General Adult General Chief complaint: ETOH/Substance Use Stated complaint: SUBSTANCE ABUSE, FOUND OUTSIDE HOME, 90% O2 ON 2L Time Seen by Provider: 08/09/23 17:00 History of Present Illness HPI narrative: The patient is a 52-year-old male who was brought to hospital by ambulance. Apparently he was found outside slouching against a telephone pole and seemed to be falling asleep. The patient tells me that he had taken some Valium and cyclobenzaprine and he thinks perhaps he took too much. He has a lot of chronic neck pains he says. He said that he had been to his regular doctor at [facility] earlier today. Related Data Home Medications Medication Instructions Recorded Confirmed prazosin 2 mg capsule 1 cap PO BEDTIME 07/28/21 02/23/22 trazodone 100 mg tablet 2 tab PO BEDTIME PRN Insomnia 07/28/21 02/23/22 venlafaxine 150 mg 1 cap PO DAILY 07/28/21 02/23/22 capsule,extended release 24 hr buprenorphine 300 mg/1.5 mL mg subcut 02/23/22 02/23/22 solution,exten.rel.subcutaneous syringe (Sublocade) Previous Rx's Medication Instructions Recorded acetaminophen 325 mg tablet 650 mg (2 x 325 mg) PO Q6H PRN 08/02/21 Pain, Mild (Pain Scale 1-3) #1 tab sennosides 8.6 mg tablet (Senna 8.6 mg PO BEDTIME #30 tabs 08/02/21 Lax) naproxen 500 mg tablet 500 mg PO BID PRN pain #14 tabs 02/07/22 oxycodone 5 mg tablet 5 mg PO Q6H PRN pain (scale score 03/01/22 7-10) #20 tabs doxycycline monohydrate 100 mg 100 mg PO BID 10 days #20 caps 09/24/22 capsule prednisone 50 mg tablet 50 mg PO DAILY 4 days #4 tabs 03/23/23 naloxone 4 mg/actuation nasal 4 mg intranasal Q2M PRN opioid 06/15/23 spray (Narcan) overdose #2 ea acetaminophen 500 mg tablet 500 mg PO Q6H PRN fever or pain 07/27/23 (Tylenol Extra Strength) #14 tabs cyclobenzaprine 5 mg tablet 5 mg PO Q8H PRN pain (scale score 07/27/23 7-10) 5 days #14 tabs ketorolac 10 mg tablet 10 mg PO TID PRN pain 5 days #15 07/27/23 tabs prednisone 20 mg tablet 40 mg (2 x 20 mg) PO DAILY 5 days 07/27/23 #10 tabs cyclobenzaprine 10 mg tablet 10 mg PO TID PRN pain #14 tabs 08/03/23 ibuprofen 400 mg tablet 400 mg PO Q6H PRN pain #20 tabs 08/03/23 diazepam 2 mg tablet 2 mg PO BEDTIME PRN muscle spasm 08/07/23 #7 tabs ketorolac 10 mg tablet 10 mg PO TID PRN pain #15 tabs 08/07/23 cyclobenzaprine 10 mg tablet 10 mg PO TID PRN muscle spasm 7 08/08/23 days #21 tabs prednisone 20 mg tablet 20 mg PO DAILY 7 days #7 tabs 08/08/23 Allergies Allergy/AdvReac Type Severity Reaction Status Date / Time No Known Allergies Allergy Verified 02/23/22 14:18 [No Known Allergies*] Review of Systems Review of Systems: Yes all other systems are reviewed and are negative [facility] Past Medical History Medical History Back pain History of ETOH abuse Chronic hepatitis C History of amputation of finger Hernia Opioid use disorder Intravenous drug abuse in remission Anxiety Depression HTN (hypertension) Surgical History Hx of surgical amputation of finger Family History Family History Mother Lung cancer Social History Social History Household Members: Family Housing: House Alcohol intake: current Alcohol intake frequency: 3 or more drinks per day Patient Tobacco Use Status: Current everyday Tobacco user Tobacco use type: Cigarette Cigarette Packs Per Day: 1.0 Cigarettes Per Day: 20.0 Smoked in Last 30 Days: Yes Use of substances other than those prescribed or required for medical reasons: Yes Substance Use Type: Marijuana and Prescription Drugs Advance Directives: Yes Advance Directives on File: Yes Advance Directives Date on File: 08/04/21 service: No Current occupational status: unemployed Physical Exam ED Vital Signs: Vital Signs - 24 hr 08/09/23 17:22 08/09/23 17:33 Temperature 99 F Pulse Rate 109 H Respiratory Rate 13 Blood Pressure 97/65 Pulse Oximetry 94 83 L Oxygen Delivery Method Room Air BMI result Body Mass Index 31.8 Const Other: Patient is awake and alert. He is unkempt. He seems fatigued but not acutely toxic. HENMT Other: Face is symmetrical. Eyes Other: Pupils are round equal, conjunctivae are clear Neck Other: His neck easily, no JVD Resp Other: Breath sounds are clear and equal bilaterally. No increased work of breathing. No respiratory distress. Cardio Other: The patient has a regular rate and rhythm with no murmur GI Other: Abdomen is soft and nontender Skin Other: No erythema or rash Neuro Other: The patient was awake and seemed reasonably well oriented. He knew that he is at [facility]. Speech is clear. Face is symmetrical. Moving all 4 extremities symmetrically. Extrem Other: No peripheral edema Medical Decision Making Medical Decision Making MDM Narrative: The patient was brought here by ambulance after seeming very sleepy on the sidewalk. He says that he probably took extra diazepam and cyclobenzaprine. He says that he took these medications because of his chronic neck pains. He denies any suicidal intent at all. The patient was given oral fluids in the emergency room. He did not wish to receive any IV fluids. His labs show that he is fairly dehydrated with an elevation of his creatinine today. He was again offered IV fluids but he declines. He has been in the emergency room for approximately 2 hours. During this time the patient was awake and seems steady on his feet. He was taking oral fluids well. He denies suicidality. He consistently requests to be discharged. He agrees to continue oral hydration at home and should follow up with his regular doctor or return to the ER if he feels significantly worse. Lab Data 08/09/23 18:07 08/09/23 18:07 Labs: Lab Results 08/09/23 Range/Units 18:07 WBC 17.7 H (4.8-10.8) X10*3/uL RBC 4.45 L (4.60-5.80) X10*6/uL Hgb 14.7 (14.0-18.0) g/dl Hct 43.5 (42.0-52.0) % MCV 97.8 (80.0-98.0) fL MCH 33.0 (27.0-33.0) pg MCHC 33.8 (31.0-36.0) g/dl RDW 13.8 (11.0-16.0) % Plt Count 206 (160-400) X10*3/uL MPV 8.6 L (9.4-12.4) fL Immature Gran % (Auto) 0.4 (0.0-0.4) % Neut % (Auto) 88.1 H (45-73) % Lymph % (Auto) 5.7 L (20-40) % Titus % (Auto) 5.4 (2-11) % Eos % (Auto) 0.2 (0-4) % Baso % (Auto) 0.2 (0-2) % Lymph # (Auto) 1.0 L (1.2-4.9) X10*3/uL Titus # (Auto) 1.0 (0.1-1.2) X10*3/uL Eos # (Auto) 0.0 (0.0-0.4) X10*3/uL Baso # (Auto) 0.0 (0.0-0.2) X10*3/uL Abs Immat Gran (auto) 0.07 H (0.00-0.03) X10*3/uL Absolute Neuts (auto) 15.6 H (2.0-8.3) x10*3/uL Absolute Nucleated RBC 0.000 (0.0-0.012) X10*3/uL Nucleated RBC % (auto) 0.0 (0.0-0.2) /100WBC Sodium 139 (135-145) mmol/L Potassium 5.0 (3.3-5.1) mmol/L Chloride 105 (96-108) mmol/L Carbon Dioxide 26 (22-29) mmol/L Anion Gap 13 (12-20) BUN 17 H (9-16) mg/dL Creatinine 1.50 H (0.5-1.4) mg/dL Estim Creat Clear Calc 58.9 Estimated GFR 49 Random Glucose 88 (60-115) mg/dL Calcium 9.1 (8.4-10.2) mg/dL Total Bilirubin 0.4 (0.0-1.0) mg/dL AST 19 (5-37) U/L ALT 19 (0-40) U/L Alkaline Phosphatase 71 (39-117) U/L Total Protein 8.0 (6.5-8.0) g/dL Albumin 4.5 (3.5-5.0) g/dL Ethyl Alcohol 11 mg/dL Discharge Plan Discharge Clinical Impression: Acute dehydration Patient Disposition: Home, Self-Care Instructions: Dehydration (ED) Additional Instructions: Your blood tests today show that you are fairly dehydrated. Please plan on taking a lot of fluids by mouth over the next several days. Also please be careful when using your prescribed medications so that you do not accidentally take too much medication. Please follow-up soon with your regular doctor at the [facility]. You should probably have your blood tests recheck next week to make sure that your dehydration has resolved. Please return to the emergency room if you feel significantly worse. Prescriptions: No Action Sublocade 300 mg/1.5 mL solution, extended rel syringe subcut oxycodone 5 mg tablet 5 mg PO Q6H PRN (Reason: pain (scale score 7-10)) Qty: 20 0RF Rx Instructions: Partial Fill upon patient request. doxycycline monohydrate 100 mg capsule 100 mg PO BID 10 Days Qty: 20 0RF venlafaxine 150 mg capsule,extended release 24hr 1 cap PO DAILY trazodone 100 mg tablet 2 tab PO BEDTIME PRN (Reason: Insomnia) prazosin 2 mg capsule 1 cap PO BEDTIME sennosides [Senna Lax] 8.6 mg Tablet 8.6 mg PO BEDTIME Qty: 30 0RF acetaminophen 325 mg Tablet 650 mg PO Q6H PRN (Reason: Pain, Mild (Pain Scale 1-3)) Qty: 1 0RF naproxen 500 mg tablet 500 mg PO BID PRN (Reason: pain) Qty: 14 0RF Rx Instructions: Take with food prednisone 50 mg tablet 50 mg PO DAILY 4 Days Qty: 4 0RF naloxone [Narcan] 4 mg/actuation spray,non-aerosol 4 mg intranasal Q2M PRN (Reason: opioid overdose) Qty: 2 0RF Rx Instructions: spray 1 dose into ONE nostril; alternate nostrils w each dose until help arrives prednisone 20 mg tablet 40 mg PO DAILY 5 Days Qty: 10 0RF acetaminophen [Tylenol Extra Strength] 500 mg tablet 500 mg PO Q6H PRN (Reason: fever or pain) Qty: 14 0RF ketorolac 10 mg tablet 10 mg PO TID PRN (Reason: pain) 5 Days Qty: 15 0RF cyclobenzaprine 5 mg tablet 5 mg PO Q8H PRN (Reason: pain (scale score 7-10)) 5 Days Qty: 14 0RF cyclobenzaprine 10 mg tablet 10 mg PO TID PRN (Reason: pain) Qty: 14 0RF ibuprofen 400 mg tablet 400 mg PO Q6H PRN (Reason: pain) Qty: 20 0RF ketorolac 10 mg tablet 10 mg PO TID PRN (Reason: pain) Qty: 15 0RF Rx Instructions: Do not take this medication with other NSAIDs such as ibuprofen, naproxen. diazepam 2 mg tablet 2 mg PO BEDTIME PRN (Reason: muscle spasm) Qty: 7 0RF cyclobenzaprine 10 mg tablet 10 mg PO TID PRN (Reason: muscle spasm) 7 Days Qty: 21 0RF prednisone 20 mg tablet 20 mg PO DAILY 7 Days Qty: 7 0RF
--- NOTE | 2023-08-09 17:48 | PC.NURSE ---
BELONGINGS IN LOCKER 12
[2023-08-09 18:10] LABS: MANUAL DIFF FLAG NO
[2023-08-09 18:12] LABS: Basophils Percent Auto 0.2 % (0-2); Eosinophils Percent Auto 0.2 % (0-4); Hematocrit 43.5 % (42.0-52.0); Hemoglobin 14.7 g/dl (14.0-18.0); Imm Gran Abs Auto 0.07 X10*3/uL (0.00-0.03); Imm Gran Pct Auto 0.4 % (0.0-0.4); Lymphocytes Percent Auto 5.7 % (20-40); Mean Corpuscular HGB Conc 33.8 g/dl (31.0-36.0); Mean Corpuscular Volume 97.8 fL (80.0-98.0); Mean Platelet Volume 8.6 fL (9.4-12.4); Monocytes Percent Auto 5.4 % (2-11); Neutrophils Absolute Auto 15.6 x10*3/uL (2.0-8.3); Neutrophils Percent Auto 88.1 % (45-73); Platelet Count 206 X10*3/uL (160-400); Red Blood Count 4.45 X10*6/uL (4.60-5.80); Red Cell Distribution Width 13.8 % (11.0-16.0); White Blood Count 17.7 X10*3/uL (4.8-10.8)
[2023-08-09 18:35] LABS: Alanine Aminotransferase 19 U/L (0-40); Albumin Level 4.5 g/dL (3.5-5.0); Alkaline Phosphatase 71 U/L (39-117); Anion Gap 13 (12-20); Aspartate Amino Transferase 19 U/L (5-37); Bilirubin Total 0.4 mg/dL (0.0-1.0); Blood Urea Nitrogen 17 mg/dL (9-16); Calcium 9.1 mg/dL (8.4-10.2); Carbon Dioxide 26 mmol/L (22-29); Chloride 105 mmol/L (96-108); Creatinine Clr Calc Pharmacy 58.9; Estimated Glomerular Filt Rate 49; Ethanol 11 mg/dL; Glucose Random 88 mg/dL (60-115); Sodium 139 mmol/L (135-145)
--- NOTE | 2023-08-09 19:16 | PC.NURSE ---
pt ambulates independently, gait appropriate. plan to d/c pt to place call cousin to pick pt up
== END 2023-08-09 19:16 | disposition home or self-care (01) ==
PROVIDERS: Emergency Provider Emergency Medicine
DX: E86.0 Dehydration (principal); M54.2 Cervicalgia; R51.9 Headache, unspecified; F17.210 Nicotine dependence, cigarettes, uncomplicated; Z71.6 Tobacco abuse counseling; Z79.899 Other long term (current) drug therapy
CPT/HCPCS: 36415; 80053; 80307; 85025; 99283

== ENCOUNTER 2023-08-24 08:45 | Outpatient (AMB) | payer OTHER, MEDICAID, SELFPAY ==
--- NOTE | 2023-08-24 09:06 | HO.SPINEOV ---
Intake Intake Visit Reasons: ED follow up pinched nerve Intake Note: Mr. Mari is her today for an ED follow up. CT Scan done @ [facility] [place]. Link Assembler Required: No Allergies No Known Allergies [No Known Allergies*] Allergy (Verified 02/23/22 14:18) Assessment & Plan Assessment & Plan (1) Cervicalgia: Code(s): M54.2 - Cervicalgia Plan Adalberto is a 52 y/o male who was verbally referred here by [facility] ED and called himself to establish services with our practice. He reports a history of 3 weeks of cervical neck pain which started directly after work. 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 He reports that after work one day he got into his work truck sat down to start the truck and felt a sharp pain in the back of his neck. This pain then began shooting down his left shoulder to the backside of his left arm in caused diffuse weakness in his left hand. He reports no associated numbness/tingling/burning. He reports that he was seen in the emergency department for this issue and they prescribed muscle relaxers which he felt was helpful. He does have a history of previous neck/shoulder pain but states it was on the right side has resolved. Today's primary concern is his left-sided neck pain which he rates as a 10/10 at this visit. He reports that heat, rest, muscle relaxers, and rest help to alleviate his pain. He reports that working/activity aggravate his pain. PMH: Hx IVDU currently on MAT, osteoarthritis, left finger amputation, left-sided carpal tunnel release. Social hx: Patient smokes 1 pack per day. No disclosed substance use but currently takes MAT in the form of Buprenorphine. Medications: Aleve, Tylenol, Valium, cyclobenzaprine, buprenorphine. Allergies: NKDA. Physical exam: The patient appears well, ambulates well, and rises from a seated position without difficulty. The patient has 4/5 hand front clerk strength on the left side. The rest of his strength including interossei strength is 5/5 bilaterally in his upper and lower extremities. He has no significant sensational deficits. No pain to direct palpation of the cervical spine. Reflexes are 2+ and intact. (+) Spurling's bilaterally (possibly confounded by pain), (-) Stanton's, (-) clonus, (-) Lhermitte's. Imaging review: CT scan completed here at [facility] shows no significant osseous abnormalities, and no obvious central canal impingement. Impression: Adalberto is a pleasant 52-year-old male who comes in today with a chief complaint of 3 weeks of neck pain accompanied by left-sided shooting pains into his left shoulder causing left-handed weakness. He does have a significant medical history of a left sided finger amputation of his 2nd digit, which may confound his hand front clerk strength on exam. His physical exam is more indicative of a brachial plexus impingement than anything else, however he continues to have a disclosed 10/10 pain with shooting symptoms down his left arm which could be indicative of a cervical disc herniation. It is difficult to ascertain which of these is more likely without MRI imaging. After reviewing his limited imaging and discussing his symptoms I recommended a short course of physical therapy followed by a cervical spine MRI to attempt to visualize any soft tissue impingement/nerve involvement related to his disclosed injury. He was not agreeable to this and requested a more immediate solution. He asked if I could prescribe any therapeutics to help with this issue or provide him with injections that could resolve his problem. I recommended that he be referred to Pain Management for evaluation of trigger point injections / discussion of therapeutic options. He was agreeable to this and requested that the referral be placed. He was strongly encouraged to pursue a cervical MRI if conservative management does not resolve his problem. The total time spent with this visit with this patient was 45 minutes reviewing history, physical exam, CT imaging review, and implementation of treatment plan or further diagnostic testing. Otis Mckinnon MD,PhD [facility] Orders: Referrals Pain Management Referral M54.2 - Cervicalgia Coding Level of Care Code New Pt Level 4 (41042) Diagnoses Cervicalgia M54.2
== END 2023-08-24 09:27 | disposition home or self-care (01) ==
PROVIDERS: Visit Provider Physician Assistant
DX: M54.2 Cervicalgia (principal)
CPT/HCPCS: 99204; 99214

== ENCOUNTER → 2023-08-24 08:45 | Outpatient (BNVA) | payer OTHER, MEDICAID, SELFPAY | PROVIDERS: Visit Provider Physician Assistant ==

== ENCOUNTER → 2023-08-30 14:45 | Outpatient (BNVA) | payer OTHER, SELFPAY | PROVIDERS: PCP Internal Medicine; Referring Provider Physician Assistant; Visit Provider Registered Nurse Emergency | DX: M25.512 Pain in left shoulder (principal); M54.6 Pain in thoracic spine; M79.10 Myalgia, unspecified site | CPT/HCPCS: 20552; J3300; J3301 ==

== ENCOUNTER 2024-03-25 15:49 | Outpatient (REF) | payer OTHER, SELFPAY ==
--- NOTE | ~2024-03-25 | XR_ITS ---
EXAMINATION: XR KNEE, LEFT CLINICAL INFORMATION: Acute pain of left knee COMPARISON: None available. TECHNIQUE: Four views of the left knee. FINDINGS: No fracture or joint effusion. Alignment is anatomic. Joint spaces are maintained. No abnormal soft tissue calcification. XR/XR knee LT 2V IMPRESSION: Normal left knee.
== END 2024-03-25 15:50 | disposition home or self-care (01) ==
LOC: HO.HHCX 15:49
PROVIDERS: Visit Provider Internal Medicine
DX: M25.562 Pain in left knee (principal)
CPT/HCPCS: 73560

== ENCOUNTER 2025-02-13 10:11 | Emergency (ER) | payer MEDICAID, SELFPAY ==
[2025-02-13 10:13] VITALS: BP 122/73; PULSE 86; RESP 18; TEMP 36.6; O2SAT 96; BMI 31.8
--- OUTSIDE RECORDS SUMMARY | 2025-02-13 11:46 | XMS_ITS | Clinical Summary ---
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 2 Active prazosin (Minipress) 2 MG capsule Take 2 capsules by mouth at bedtime. 2 Active psyllium (Metamucil) 33 % powder 1 packet Daily PRN as needed 1 Active venlafaxine XR (Effexor XR) 150 MG 24 hr capsule Take 1 capsule by mouth 1 (one) time each day. 0 Active nicotine (Nicotrol) 10 MG inhaler USE DIRECTED 0 Active multivitamin (Theragran) tablet take 1 tablet by oral route every day with food 0 Active ketoconazole (NIZOral) 2 % cream apply by topical route every day to the affected area(s) 0 Active folic acid (Folvite) 1 MG tablet Take 1 tablet by mouth 1 (one) time each day. 0 Active sofosbuvir-velp atasvir (Epclusa) 400-100 MG tablet take 1 tablet by oral route every day for 12 wk 0 Active naltrexone ER (Vivitrol) injection Inject 4 mL into the shoulder, thigh, or buttocks every 4 (four) weeks. Active Acetaminophen Extra Strength 500 MG tablet TAKE 1 TABLET BY MOUTH EVERY 6 HOURS NEEDED FOR FEVER OR PAIN 3 Active Sublocade 100 MG/0.5ML injection 3 Active cyclobenzaprine (Flexeril) 10 MG tablet TAKE 1 TAB ORALLY 3 TIMES A DAY NEEDED FOR MUSCLE SPASM FOR 7 DAYS 3 Active diazePAM (Valium) 2 MG tablet TAKE 1 TAB ORALLY BEDTIME NEEDED FOR MUSCLE SPASM 3 Active ketorolac (Toradol) 10 MG tablet PLEASE SEE ATTACHED FOR DETAILED DIRECTIONS 3 Active naloxone (Narcan) 4 mg/0.1 mL nasal spray 3 Active predniSONE (Deltasone) 20 MG tablet TAKE 1 TAB ORALLY DAILY FOR 7 DAYS 3 Active Active Problems Problem Noted Date Diagnosed Date Tinea capitis 08/09/2023 Assessment & Plan (08/09/2023 12:51 PM EST): Continue Ketoconazole cream Refer to dermatology Foot pain 08/25/2022 Hepatic fibrosis 08/25/2022 Erectile dysfunction 08/25/2022 Pain of left thumb 08/25/2022 Seborrheic dermatitis 08/25/2022 Chronic hepatitis C 12/31/2018 Depressive disorder 12/31/2018 Anxiety 03/21/2018 Chronic alcoholism in remission 03/21/2018 Hearing loss 03/21/2018 Hepatitis C antibody test positive 03/21/2018 Neck pain 03/21/2018 Assessment & Plan (08/09/2023 3:20 PM EST): Pt had DJD of the spine w/ recent exacerbation, currently considerable muscle spasm and tender point over both scapulas. Complete Prednisone tabs and refer to trigger point injection clinic, if not improved, may need referral to pain clinic Use Diclofenac gel + tylenol + heat to effected area Posttraumatic stress disorder 03/21/2018 Tinea corporis 03/21/2018 Tobacco dependence syndrome 03/21/2018 Visual impairment 03/21/2018 Encounters Date Type Department Care Team Description 12/05/2024 Population Health Risk Score [facility] Care [facility] ([facility]) Department [address] [place] [address] Provider, Population Health Generic from Last 3 Months Immunizations Immunization Administration Dates Next Due Influenza injectable quadrivalent preservative f ree 06/09/2021 Influenza, IIV3, injectable 06/09/2021 Moderna Covid-19 Vaccine 12+ 07/06/2021,05/27/20 21 Tdap 03/15/2021,02/08/2016 Social History Tobacco Use Types Packs/Day Years Used Date Smoking Tobacco: Every Day Cigarettes 0.5 43.4 Started: 1981 Smokeless Tobacco: Never Tobacco Cessation:Ready to Q uit: Not Asked; Counseling Given: Not Answered Alcohol Use Standard Drinks/Week Comments Never 0 (1 standard drink = 0.6 oz pur e alcohol) Sex and Gender Information Value Date Recorded Sex Assigned at Male 07/24/2022 10:16 AM EDT Legal Sex Male 10:16 AM EDT Gender Identity Male 07/24/2022 10:16 AM EDT Sexual Orientation Don't know 07/24/2022 10 :16 AM EDT Last Filed Vital Signs Vital Sign Reading Time Taken Comments Blood Pressure 122/85 03/25/2024 2:29 PM EDT Pulse 65 03/25/2024 2:29 PM EDT Temperature 34.8 ??C (94.7 ??F) 03/25/2024 2:29 PM ED T Respiratory Rate 19 03/25/2024 2:29 PM EDT Oxygen Saturation 96% 03/25/2024 2:29 PM EDT Inhaled Oxygen Concentration - - Weight 93.4 kg (206 lb) 03/25/2024 2:29 PM EDT Height 167.6 cm (5' 6 ) 03/25/2024 2:29 PM EDT Body Mass Index 33.25 03/25/2024 2:29 PM EDT Plan of Treatment Health Maintenance Due Date Last Done Comments CT Colonography 1968 Colonoscopy 1968 Colorectal Cancer Screening 1968 Depression Screening 1968 FIT DNA/Cologuard 1968 FIT 1968 FOBT 1968 Lipid Panel 1968 SDOH Screening 1968 Sigmoidoscopy 1968 Disability Screening 1968 Alcohol/Substance Use Screening 1980 Hepatitis A Vaccines (1 of 2 - Risk 2-dose series) 1987 Hepatitis B Vaccines (1 of 3 - 19+ 3-dose series) 1987 Pneumococcal Vaccine: 50+ Years (1 of 2 - PCV) 1987 Lung Cancer Screening 2018 Zoster Vaccines (1 of 2) 2018 COVID-19 Vaccine (3 - 2023-2 5 season) 2024 07/06/2021, 05/27/2021 Influenza Vaccine (#1) 2024 , 06/09/2021 Tobacco Screening 03/25/2025 03/25/2024 DTaP/Tdap/Td Vaccines (3 - T d or Tdap) 03/15/2031 03/15/2021, 02/08/2016 RSV Patients and Patients Aged 60 years or older (1 - 1-dose 75+ series) 2043 HIV Screening Completed 03/12/2020 HIB Vaccines Aged Out No longer eligi ble based on patient's age to complete this topic HPV Vaccines Aged Out No longer eligi ble based on patient's age to complete this topic IPV Vaccines Aged Out No longer eligi ble based on patient's age to complete this topic Meningococcal B Vaccine Aged Out No l onger eligible based on patient's age to complete this topic Meningococcal Vaccine Aged Out No petey frank eligible based on patient's age to complete this topic RSV under 20 months Aged Out No longe r eligible based on patient's age to complete this topic Rotavirus Vaccines Aged Out No longer eligible based on patient's age to complete this topic Procedures Procedure Name Priority Date/Time Associated Diagnosis Comments YANCI HISTORICAL HIV AB/AG Routine 03/12/2020 4:40 PM EDT from Last 3 Months or Most Recently Relevant to Health Maintenance Results * HIV AB/AG (03/12/2020 4:40 PM EDT) Pathologist [facility] HIV AG/AB NONREACTIVE NR [facility] Comment: HIV-1 p24 Ag and/or HIV-1/HIV-2 Ab not detected. ?? A test result that is nonreactive does not exclude the possibility of exposure to or infection with HIV-1 and/or HIV-2. Nonreactive results in this assay for individuals with prior exposure to HIV-1 and/or HIV-2 may be due to antigen and antibody levels that are below the limit of detection of this assay. ?? The [employer] HIV Ag/Ab Combo assay result and supplemental assay results should be interpreted in conjunction with the patient's clinical presentation, history and other laboratory results. ??If the results are inconsistent with clinical evidence, additional testing is suggested to confirm the result. 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
--- NOTE | 2025-02-13 12:26 | ED_ITS ---
HPI - General Adult General Chief complaint: General Medical Stated complaint: Ring Stuck on L Index Finger Time Seen by Provider: 02/13/25 11:36 Source: patient, RN notes reviewed and old records reviewed Mode of arrival: ambulatory Limitations: no limitations History of Present Illness ED Provider: Key HPI narrative: 54-year-old male presents for evaluation of a swollen finger. Patient reports that he injured his fingertip at work. He has a ring that he can not removed from his left 3rd finger which is the finger that is swollen. He has no pain but is unable to remove the ring He believes the ring is made out of steel Related Data Home Medications ?Medication ?Instructions ?Recorded ?Confirmed buprenorphine 300 mg/1.5 mL mg subcut 02/23/22 02/23/22 solution,exten.rel.subcutaneous syringe (Sublocade) Previous Rx's ?Medication ?Instructions ?Recorded acetaminophen 325 mg tablet 650 mg (2 x 325 mg) PO Q6H PRN 08/02/21 Pain, Mild (Pain Scale 1-3) #1 tab sennosides 8.6 mg tablet (Senna 8.6 mg PO BEDTIME #30 tabs 08/02/21 Lax) naproxen 500 mg tablet 500 mg PO BID PRN pain #14 tabs 02/07/22 doxycycline monohydrate 100 mg 100 mg PO BID 10 days #20 caps 09/24/22 capsule prednisone 50 mg tablet 50 mg PO DAILY 4 days #4 tabs 03/23/23 naloxone 4 mg/actuation nasal 4 mg intranasal Q2M PRN opioid 06/15/23 spray (Narcan) overdose #2 ea acetaminophen 500 mg tablet 500 mg PO Q6H PRN fever or pain 07/27/23 (Tylenol Extra Strength) #14 tabs cyclobenzaprine 5 mg tablet 5 mg PO Q8H PRN pain (scale score 07/27/23 7-10) 5 days #14 tabs ketorolac 10 mg tablet 10 mg PO TID PRN pain 5 days #15 07/27/23 tabs prednisone 20 mg tablet 40 mg (2 x 20 mg) PO DAILY 5 days 07/27/23 #10 tabs cyclobenzaprine 10 mg tablet 10 mg PO TID PRN pain #14 tabs 08/03/23 ibuprofen 400 mg tablet 400 mg PO Q6H PRN pain #20 tabs 08/03/23 diazepam 2 mg tablet 2 mg PO BEDTIME PRN muscle spasm 08/07/23 #7 tabs ketorolac 10 mg tablet 10 mg PO TID PRN pain #15 tabs 08/07/23 cyclobenzaprine 10 mg tablet 10 mg PO TID PRN muscle spasm 7 08/08/23 days #21 tabs Allergies Allergy/AdvReac Type Severity Reaction Status Date / Time No Known Allergies Allergy Verified 02/13/25 10:19 [No Known Allergies*] Review of Systems Constitutional: Constitutional: Denies headache(s) ENT: Denies headache(s) Musculoskeletal: Musculoskeletal: Reports arthralgias, Reports joint swelling and Denies limited range of motion Integumentary/Breasts: Skin/Breast: Denies wounds Neurologic: Denies headache(s) PMFSH Past Medical History Medical History Back pain History of ETOH abuse Chronic hepatitis C History of amputation of finger Hernia Opioid use disorder Intravenous drug abuse in remission Anxiety Depression HTN (hypertension) Surgical History Hx of surgical amputation of finger Family History Family History Mother Lung cancer Social History Social History Household Members: Family Housing: House Alcohol intake: current Alcohol intake frequency: 3 or more drinks per day 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 Patient Tobacco Use Status: Current everyday Tobacco user Tobacco use type: Cigarette Cigarette Packs Per Day: 1.0 Cigarettes Per Day: 20.0 Substance Use Type: Marijuana and Prescription Drugs Advance Directives: Yes Advance Directives on File: Yes Advance Directives Date on File: 08/04/21 service: No Current occupational status: unemployed Physical Exam ED Vital Signs: Vital Signs - 24 hr 02/13/25 10:13 Temperature 98 F Pulse Rate 86 Respiratory Rate 18 Blood Pressure 122/73 Pulse Oximetry 96 BMI result Body Mass Index 31.8 Const General: healthy appearing, comfortable, no acute distress, alert and awake Nutritional Appearance: well nourished Orientation/consciousness: patient oriented x3 HENMT Head: Yes normocephalic and Yes atraumatic Neck Neck: Yes full ROM Resp Effort & Inspection: normal respiratory effort, able to speak in complete sentences and not labored Skin General skin exam: elasticity normal Neuro General: patient oriented x3 Cranial nerves: Yes Bilaterally intact EOM present Cognition (Neuro): normal cognition Extrem Other: Patient has moderate edema to the left 3rd PIP joint and middle phalanx area. No erythema, no open wounds. Medical Decision Making Medical Decision Making MDM Narrative: At the patient's request, was able to use the ring cutter to cut all the way through both sides of the ring. The ring was left in 2 pieces which were both provided to the patient. There were no complications. The patient has good range of motion with flexion-extension of all digits of the left hand including the left 3rd MCP, PIP and D IP joint. I have a very low suspicion for fracture. It is likely the patient had increased swelling as he tried to remove the ring himself but was unable to do so. There was no evidence of infectious process either. No imaging was obtained Differential Diagnosis Differential Diagnoses: The differential diagnosis associated with the presentation includes Finger swelling Paronychia Finger fracture Contusion Discharge Plan Discharge Clinical Impression: Finger swelling Patient Disposition: Home, Self-Care Additional Instructions: Your ring was cut into 2 pieces which were provided to you. You may apply topical antibiotic to any cuts on your skin. Apply ice to the swollen area Follow-up with your primary doctor, return for new or worsening symptoms Prescriptions: No Action Sublocade 300 mg/1.5 mL solution, extended rel syringe subcut doxycycline monohydrate 100 mg capsule 100 mg PO BID 10 Days Qty: 20 0RF sennosides [Senna Lax] 8.6 mg Tablet 8.6 mg PO BEDTIME Qty: 30 0RF acetaminophen 325 mg Tablet 650 mg PO Q6H PRN (Reason: Pain, Mild (Pain Scale 1-3)) Qty: 1 0RF naproxen 500 mg tablet 500 mg PO BID PRN (Reason: pain) Qty: 14 0RF Rx Instructions: Take with food prednisone 50 mg tablet 50 mg PO DAILY 4 Days Qty: 4 0RF naloxone [Narcan] 4 mg/actuation spray,non-aerosol 4 mg intranasal Q2M PRN (Reason: opioid overdose) Qty: 2 0RF Rx Instructions: spray 1 dose into ONE nostril; alternate nostrils w each dose until help arrives prednisone 20 mg tablet 40 mg PO DAILY 5 Days Qty: 10 0RF acetaminophen [Tylenol Extra Strength] 500 mg tablet 500 mg PO Q6H PRN (Reason: fever or pain) Qty: 14 0RF ketorolac 10 mg tablet 10 mg PO TID PRN (Reason: pain) 5 Days Qty: 15 0RF cyclobenzaprine 5 mg tablet 5 mg PO Q8H PRN (Reason: pain (scale score 7-10)) 5 Days Qty: 14 0RF cyclobenzaprine 10 mg tablet 10 mg PO TID PRN (Reason: pain) Qty: 14 0RF ibuprofen 400 mg tablet 400 mg PO Q6H PRN (Reason: pain) Qty: 20 0RF ketorolac 10 mg tablet 10 mg PO TID PRN (Reason: pain) Qty: 15 0RF Rx Instructions: Do not take this medication with other NSAIDs such as ibuprofen, naproxen. diazepam 2 mg tablet 2 mg PO BEDTIME PRN (Reason: muscle spasm) Qty: 7 0RF cyclobenzaprine 10 mg tablet 10 mg PO TID PRN (Reason: muscle spasm) 7 Days Qty: 21 0RF Print Language: [place]
== END 2025-02-13 12:42 | disposition home or self-care (01) ==
PROVIDERS: Emergency Provider Emergency Medicine; PCP Internal Medicine
DX: R22.32 Localized swelling, mass and lump, left upper limb (principal); M79.642 Pain in left hand; Z79.899 Other long term (current) drug therapy
CPT/HCPCS: 99281; 99282

== ENCOUNTER 2025-03-21 13:23 | Emergency (ER) | payer MEDICAID, SELFPAY ==
--- NOTE | ~2025-03-21 | XR_ITS ---
CLINICAL HISTORY: ?FB to right thumb 3 view right hand Comparison: CR/SR - XR HAND RT MIN 3V - 07/27/23 09:41 EDT Findings: Bones intact. No dislocations. Joint space narrowing and periarticular osteophyte formation at the radiocarpal, scaphotrapezial, and 1st carpometacarpal joints is present, indicating osteoarthritis. Periarticular osteophyte formation at the interphalangeal joints of the digits. No erosions. No radiopaque foreign body. IMPRESSION: 1. No acute findings This document has been electronically signed by: Augustin Woodall MD on 03/21/2025 14:39:59
[2025-03-21 13:29] VITALS: BP 127/77; PULSE 77; RESP 16; TEMP 36.7; O2SAT 93; BMI 31.0
--- NOTE | 2025-03-21 13:29 | ED.UPPEXIN ---
HPI - Extremity Injury (Upper) General Chief Complaint: Extremity Injury, Upper Stated Complaint: Object stuck in thumb Time Seen by Provider: 03/21/25 14:03 Source: patient, RN notes reviewed and old records reviewed Mode of arrival: ambulatory Limitations: no limitations History of Present Illness ED Provider: Key HPI narrative: 54-year-old year old male presents for evaluation of right thumb pain. The patient reports that he has had pain to his right thumb for the last 2 weeks. He does not know if he was bit by anything or if he got anything in the tip of his thumb He reports that he has significant calluses to his hands due to working on his hands He never saw anything sticking out of his family. He did try to use an Exact[employer] knife to remove a foreign body but could not get anything He is having increasing pain to the tip of his right 4th finger Denies any fevers or chills Related Data Home Medications ?Medication ?Instructions ?Recorded ?Confirmed buprenorphine 300 mg/1.5 mL mg subcut 02/23/22 02/23/22 solution,exten.rel.subcutaneous syringe (Sublocade) Previous Rx's ?Medication ?Instructions ?Recorded acetaminophen 325 mg tablet 650 mg (2 x 325 mg) PO Q6H PRN 08/02/21 Pain, Mild (Pain Scale 1-3) #1 tab sennosides 8.6 mg tablet (Senna 8.6 mg PO BEDTIME #30 tabs 08/02/21 Lax) naproxen 500 mg tablet 500 mg PO BID PRN pain #14 tabs 02/07/22 doxycycline monohydrate 100 mg 100 mg PO BID 10 days #20 caps 09/24/22 capsule prednisone 50 mg tablet 50 mg PO DAILY 4 days #4 tabs 03/23/23 naloxone 4 mg/actuation nasal 4 mg intranasal Q2M PRN opioid 06/15/23 spray (Narcan) overdose #2 ea acetaminophen 500 mg tablet 500 mg PO Q6H PRN fever or pain 07/27/23 (Tylenol Extra Strength) #14 tabs cyclobenzaprine 5 mg tablet 5 mg PO Q8H PRN pain (scale score 07/27/23 7-10) 5 days #14 tabs ketorolac 10 mg tablet 10 mg PO TID PRN pain 5 days #15 07/27/23 tabs prednisone 20 mg tablet 40 mg (2 x 20 mg) PO DAILY 5 days 07/27/23 #10 tabs cyclobenzaprine 10 mg tablet 10 mg PO TID PRN pain #14 tabs 08/03/23 ibuprofen 400 mg tablet 400 mg PO Q6H PRN pain #20 tabs 08/03/23 diazepam 2 mg tablet 2 mg PO BEDTIME PRN muscle spasm 08/07/23 #7 tabs ketorolac 10 mg tablet 10 mg PO TID PRN pain #15 tabs 08/07/23 cyclobenzaprine 10 mg tablet 10 mg PO TID PRN muscle spasm 7 08/08/23 days #21 tabs cephalexin 500 mg tablet 500 mg PO QID #28 tabs 03/21/25 Allergies Allergy/AdvReac Type Severity Reaction Status Date / Time No Known Allergies (No Known Allergy Verified 03/21/25 13:31 Allergies*) Review of Systems Constitutional: Constitutional: Denies body ache(s), Denies chills and Denies fever(s) Eyes: Eyes: Denies blurry vision and Denies exophthalmos ENT: Denies dizziness Cardiovascular: Cardiovascular: Denies chest pain and Denies dyspnea on exertion Respiratory: Respiratory: Denies cough and Denies dyspnea on exertion Gastrointestinal: Gastrointestinal: Denies abdominal pain Musculoskeletal: Musculoskeletal: Denies arthralgias and Denies joint swelling Integumentary/Breasts: Skin/Breast: Reports erythema and Reports wounds Neurologic: Denies dizziness Psychiatric: Psychiatric: Denies anxiety PMFSH Past Medical History Medical History Back pain History of ETOH abuse Chronic hepatitis C History of amputation of finger Hernia Opioid use disorder Intravenous drug abuse in remission Anxiety Depression HTN (hypertension) Surgical History Hx of surgical amputation of finger Family History Family History Mother Lung cancer Social History Social History Household Members: Family Housing: House Alcohol intake: current Alcohol intake frequency: 3 or more drinks per day 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 Patient Tobacco Use Status: Current everyday Tobacco user Tobacco use type: Cigarette Cigarette Packs Per Day: 1.0 Cigarettes Per Day: 20.0 Smoked in Last 30 Days: Yes Use of substances other than those prescribed or required for medical reasons: Yes Substance Use Type: Marijuana Advance Directives: Yes Advance Directives on File: Yes Advance Directives Date on File: 08/04/21 service: No Current occupational status: unemployed Physical Exam Vital Signs: Vital Signs: Last Vital Signs Temp 98.2 F 03/21/25 15:30 Pulse 78 03/21/25 15:30 Resp 16 03/21/25 15:30 BP 131/78 03/21/25 15:30 Pulse Ox 98 03/21/25 15:30 O2 Del Method Room Air 03/21/25 15:30 BMI result Body Mass Index 31.0 Extrem: Other: There is a small puncture wound to the very tip of the right thumb. There is minimal surrounding erythema and edema. He is able to flex and extend at the MCP and interphalangeal joints. No fever. No palpable foreign body there is exquisite tenderness to the area Course Course Course Narrative: Isabel Sin APRN This is a rapid medical exam. Deferred additional HPI, ROS, PE to primary provider. 54 yo male who is right hand dominant here with concern for FB to right thumb x 2 weeks, reports pain. Will check x-rays VSS Medications Administered Discontinued Medications Generic Name Dose Route Start Last Admin Trade Name Geeq PRN Reason Stop Dose Admin Cephalexin HCl 500 mg 03/21/25 15:18 03/21/25 15:28 Cephalexin 500 Mg Capsule PO 03/21/25 15:19 500 mg ONCE ONE Administration Lidocaine HCl 10 ml 03/21/25 15:21 03/21/25 15:27 Lidocaine Hcl 1 % Mpf 5 Ml Vial INFILTRATI 03/21/25 15:22 10 ml ONCE ONE Administration Medical Decision Making Medical Decision Making MDM Narrative: X-ray did not show any obvious foreign body, see procedure note for attempted foreign body retrieval. The patient will be referred to Orthopedic hand surgery and started on antibiotics Differential Diagnosis Differential Diagnoses: The differential diagnosis associated with the presentation includes Cellulitis Foreign body Insect bite Thumb pain Independent Interpretation I performed an independent interpretation of an: Plain X-Ray Interpretation: No obvious foreign body Radiology Impression Discussion of test interpretation with radiology: I have reviewed the radiologist's reading. Radiologist Impression: Findings: Bones intact. No dislocations. Joint space narrowing and periarticular osteophyte formation at the radiocarpal, scaphotrapezial, and 1st carpometacarpal joints is present, indicating osteoarthritis. Periarticular osteophyte formation at the interphalangeal joints of the digits. No erosions. No radiopaque foreign body. IMPRESSION: 1. No acute findings This document has been electronically signed by: Augustin Woodall MD on 03/21/2025 14:39:59 Procedures Procedure Narrative Procedure Narrative: I performed a digital block of the right thumb with a total of 3 cc of 1% lidocaine injected in the dorsal side of the thumb in between the MCP and interphalangeal joints, about 1.5 cc in each side. The tip of the finger was prepped with Betadine. I tried to manually palpate for a foreign body in could not feel anything underneath the skin. I tried to squeeze the sides of the finger to see if any foreign body would be protruding from the small/punctate hole at the tip of the finger and could not feel any foreign body. I did use a scalpel to open the puncture wound to about 3 or 4 mm and only about 3 or 4 mm deep. I probed with forceps and could not feel a foreign body. I discussed with the patient that there was no obvious foreign body visual or palpable and the procedure was terminated. There was about 2 cc of blood total. Discharge Plan Discharge Clinical Impression: Pain of right thumb Patient Disposition: Home, Self-Care Instructions: Cellulitis (ED) Additional Instructions: I do not see any foreign body at the tip of your thumb. Your x-ray did not show any obvious foreign body either. In his possible that there is a very small splinter in the area. I recommend taking the antibiotics as prescribed. You may follow up with Dr. Harrington, hand surgery if your pain, redness is not improving after next few days. He should return to the ER if you develop fevers. Prescriptions: New cephalexin 500 mg tablet 500 mg PO QID Qty: 28 0RF No Action Sublocade 300 mg/1.5 mL solution, extended rel syringe subcut doxycycline monohydrate 100 mg capsule 100 mg PO BID 10 Days Qty: 20 0RF sennosides [Senna Lax] 8.6 mg Tablet 8.6 mg PO BEDTIME Qty: 30 0RF acetaminophen 325 mg Tablet 650 mg PO Q6H PRN (Reason: Pain, Mild (Pain Scale 1-3)) Qty: 1 0RF naproxen 500 mg tablet 500 mg PO BID PRN (Reason: pain) Qty: 14 0RF Rx Instructions: Take with food prednisone 50 mg tablet 50 mg PO DAILY 4 Days Qty: 4 0RF naloxone [Narcan] 4 mg/actuation spray,non-aerosol 4 mg intranasal Q2M PRN (Reason: opioid overdose) Qty: 2 0RF Rx Instructions: spray 1 dose into ONE nostril; alternate nostrils w each dose until help arrives prednisone 20 mg tablet 40 mg PO DAILY 5 Days Qty: 10 0RF acetaminophen [Tylenol Extra Strength] 500 mg tablet 500 mg PO Q6H PRN (Reason: fever or pain) Qty: 14 0RF ketorolac 10 mg tablet 10 mg PO TID PRN (Reason: pain) 5 Days Qty: 15 0RF cyclobenzaprine 5 mg tablet 5 mg PO Q8H PRN (Reason: pain (scale score 7-10)) 5 Days Qty: 14 0RF cyclobenzaprine 10 mg tablet 10 mg PO TID PRN (Reason: pain) Qty: 14 0RF ibuprofen 400 mg tablet 400 mg PO Q6H PRN (Reason: pain) Qty: 20 0RF ketorolac 10 mg tablet 10 mg PO TID PRN (Reason: pain) Qty: 15 0RF Rx Instructions: Do not take this medication with other NSAIDs such as ibuprofen, naproxen. diazepam 2 mg tablet 2 mg PO BEDTIME PRN (Reason: muscle spasm) Qty: 7 0RF cyclobenzaprine 10 mg tablet 10 mg PO TID PRN (Reason: muscle spasm) 7 Days Qty: 21 0RF Referrals: Marlene Harrington MD [Physician, Hand Surgery] Referral Note: right thumb cellulitis Interventions: ED Discharge Assessment Last Done: 03/21/25 15:30 Discharge Date/Time: 03/21/25 15:31 Print Language: Romanian
--- OUTSIDE RECORDS SUMMARY | 2025-03-21 13:53 | XMS_ITS | Clinical Summary ---
Author Organization [employer] Address [address] [place] [address] Care Team Providers Care [employer] Name Role Phone Silvia Fitzgerald MD Primary [...] Tobacco dependence syndrome 03/21/2018 Visual impairment 03/21/2018 Immunizations Immunization Administration Dates Next Due Influenza injectable quadrivalent preservative f ree 06/09/2021 Influenza, IIV3, injectable 06/09/2021 Moderna Covid-19 Vaccine 12+ 07/06/2021,05/27/20 21 Tdap 03/15/2021,02/08/2016 Social History Tobacco Use Types Packs/Day Years Used Date Smoking Tobacco: Every Day Cigarettes 0.5 43.5 Started: 1983 Smokeless Tobacco: Never Tobacco Cessation:Ready [...] 63 03/25/2024 2:29 PM EDT Temperature 34.8 C (94.7 F) 03/25/2024 2:29 PM EDT Respiratory Rate 19 03/25/2024 2:29 PM EDT [...] - 2023-2 5 season) 2024 07/06/2021, 05/27/2021 Tobacco Screening 03/25/2025 03/25/2024 Influenza Vaccine (Season Ended) 2025 06/09/2021, 06/09/2021 DTaP/Tdap/Td Vaccines (3 - T d or [...] HIV AB/AG (03/12/2020 4:40 PM EDT) Pathologist [facility] HIV AG/AB NONREACTIVE [facility] Comment: HIV-1 p24 Ag and/or HIV-1/HIV-2 Ab not detected. A test result that is nonreactive does not exclude the possibility of exposure to or infection with HIV-1 and/or HIV-2. Nonreactive results in this assay for individuals with prior exposure to HIV-1 and/or HIV-2 may be due to antigen and antibody levels that are below the limit of detection of this assay. The [employer] HIV Ag/Ab Combo assay result and supplemental assay results should be interpreted in conjunction with the patient's clinical presentation, history and other laboratory results. If the results are inconsistent with clinical evidence, additional testing is suggested to confirm the result. 03/12/2020 4:40 PM EDT us Jaehyun Sudha MD HISTORICAL/NON ORDERABLE LABS Fi nal Result [facility] [address] from Last 3 Months or Most Recently Relevant to Health Maintenance Insurance [facility] C3 Care Teams [employer] Relationship Specialty Start Date End Date Silvia Fitzgerald MD [address] [place] [id number] PCP - General Family Medicine 12/12/18
--- NOTE | 2025-03-21 14:03 | PC.NURSE ---
pt a&ox3, c/o 07/03 rt thumb pain, xray performed, pt awaiting results, call osuan within reach, plan of care ongoing
[2025-03-21 14:16] VITALS: BP 138/88; PULSE 81; RESP 16; TEMP 36.9; O2SAT 100
[2025-03-21] MEDS: Lidocaine HCl 1 % MPF 5 ML VIAL 10 ML INFILTRATI (15:27)
[2025-03-21] MEDS: cephALEXin 500 MG CAPSULE PO (15:28)
[2025-03-21 15:30] VITALS: BP 131/78; PULSE 78; RESP 16; TEMP 36.8; O2SAT 98
== END 2025-03-21 15:31 | disposition home or self-care (01) ==
PROVIDERS: Emergency Provider Emergency Medicine; PCP Internal Medicine
DX: M60.241 Foreign body granuloma of soft tissue, not elsewhere classified, right hand (principal); L84 Corns and callosities; M79.644 Pain in right finger(s); F17.210 Nicotine dependence, cigarettes, uncomplicated; Z79.899 Other long term (current) drug therapy
CPT/HCPCS: 10120; 64450; 73130; 99284; J2003

== ENCOUNTER → 2025-03-21 13:30 | Outpatient (BNV) | payer MEDICAID, SELFPAY | PROVIDERS: PCP Internal Medicine; Visit Provider Radiology Diagnostic Radiology | DX: M25.741 Osteophyte, right hand (principal) | CPT/HCPCS: 73130 ==

== ENCOUNTER 2025-05-09 10:51 | Emergency (ER) | payer MEDICAID, SELFPAY ==
--- NOTE | ~2025-05-09 | CT_ITS ---
CLINICAL HISTORY: 5 weeks R thumb pain, ?osteo on xr need adtl image CT of the right hand with IV contrast. COMPARISON: XR right hand dated 05/09/25 at 12:06 EDT FINDINGS: Soft tissue mild soft tissue edema overlies the right hand most pronounced along the distal aspect of the 1st digit. No organizing fluid collection or foreign body. Visualized portions of the distal radius and ulna appear intact. There is decreased radioulnar joint space. Carpal bones appear intact. Degenerative changes of the intercarpal joints most pronounced at the triscaphe joint. 1st carpometacarpal joint space narrowing. Metacarpals appear intact. Small osteophytes present along the heads of the 2nd and 3rd metacarpals. Erosions present along the tuft of the 1st distal phalanx (series 4, image 184). No periostitis. There is overlying soft tissue edema. Question small amount of subcutaneous gas versus skin defect overlying the lateral aspect of the 1st distal phalanx (series 4, image 178). No organizing fluid collection. Remaining phalanges appear intact. IMPRESSION: 1. Findings consistent with osteomyelitis involving the tuft of the 1st distal phalanx. There is overlying subcutaneous edema and small amount of punctate gas possibly representing a location for skin defect. Recommend correlation clinically. No evidence of abscess. This document has been electronically signed by: Alcon Nelson MD on 05/09/2025 15:23:09
--- NOTE | ~2025-05-09 | XR_ITS ---
CLINICAL HISTORY: ?FB in R thumb 3 view right hand Comparison: CR - XR HAND RT 2V - 03/21/25 13:38 EDT Findings: Bones intact. No dislocations. The patient is status post amputation of the distal aspect of the 1st digit. There are possible erosive changes involving the tip of the 1st distal phalanx. Osteomyelitis is not excluded. No foreign bodies are identified. IMPRESSION: Deformity of distal 1st digit likely postoperative in nature. Apparent erosion of the distal aspect of the 1st distal phalanx may be postoperative in nature. Osteomyelitis is not excluded here. Please correlate clinically. This document has been electronically signed by: Blake Lozada MD on 05/09/2025 12:57:49
[2025-05-09 10:55] VITALS: BP 136/78; PULSE 82; RESP 16; TEMP 36.8; O2SAT 97; BMI 27.5
--- NOTE | 2025-05-09 11:27 | ED.GENADULT ---
HPI - General Adult General Chief complaint: Skin/Abscess/Foreign Body Stated complaint: fb in rthumb at work Time Seen by Provider: 05/09/25 11:03 Source: patient Mode of arrival: ambulatory Limitations: no limitations History of Present Illness ED Provider: Naeem Yee PA-C HPI narrative: 54-year-old male with medical history of OUD in remission since 2022, anxiety, depression, HTN, presents to the ED due to 5 weeks of right thumb pain. Patient states 5 weeks ago he thought he had a ?sliver? in his right thumb while working. Patient states he works on [employer] of [employer] with multiple substances including lead and asbestos. He is unsure what exactly has happened of the thumb, is questioning whether he had some type of foreign body or bite to the thumb. Patient was seen in the department approximately 5 weeks ago on 03/21/2025 and had I and D done and started on ABX therapy. Patient states 2 weeks he was still experiencing pain with the right thumb, and was expressing some clear fluid. He was seen at [facility] who also performed I and D, and started patient ABX therapy. Patient states he has finished both courses of antibiotics with no effect. Patient states over the last 2 days he has experienced increased pain of the right thumb, with tightness when flexing. He states he has been using home Exacto knife to try to get out ?sliver? in his thumb without effect. Related Data Home Medications ?Medication ?Instructions ?Recorded ?Confirmed buprenorphine 300 mg/1.5 mL mg subcut 02/23/22 02/23/22 solution,exten.rel.subcutaneous syringe (Sublocade) Previous Rx's ?Medication ?Instructions ?Recorded acetaminophen 325 mg tablet 650 mg (2 x 325 mg) PO Q6H PRN 08/02/21 Pain, Mild (Pain Scale 1-3) #1 tab sennosides 8.6 mg tablet (Senna 8.6 mg PO BEDTIME #30 tabs 08/02/21 Lax) naproxen 500 mg tablet 500 mg PO BID PRN pain #14 tabs 02/07/22 doxycycline monohydrate 100 mg 100 mg PO BID 10 days #20 caps 09/24/22 capsule prednisone 50 mg tablet 50 mg PO DAILY 4 days #4 tabs 03/23/23 naloxone 4 mg/actuation nasal 4 mg intranasal Q2M PRN opioid 06/15/23 spray (Narcan) overdose #2 ea acetaminophen 500 mg tablet 500 mg PO Q6H PRN fever or pain 07/27/23 (Tylenol Extra Strength) #14 tabs cyclobenzaprine 5 mg tablet 5 mg PO Q8H PRN pain (scale score 07/27/23 7-10) 5 days #14 tabs ketorolac 10 mg tablet 10 mg PO TID PRN pain 5 days #15 07/27/23 tabs prednisone 20 mg tablet 40 mg (2 x 20 mg) PO DAILY 5 days 07/27/23 #10 tabs cyclobenzaprine 10 mg tablet 10 mg PO TID PRN pain #14 tabs 08/03/23 ibuprofen 400 mg tablet 400 mg PO Q6H PRN pain #20 tabs 08/03/23 diazepam 2 mg tablet 2 mg PO BEDTIME PRN muscle spasm 08/07/23 #7 tabs ketorolac 10 mg tablet 10 mg PO TID PRN pain #15 tabs 08/07/23 cyclobenzaprine 10 mg tablet 10 mg PO TID PRN muscle spasm 7 08/08/23 days #21 tabs cephalexin 500 mg tablet 500 mg PO QID #28 tabs 03/21/25 Allergies Allergy/AdvReac Type Severity Reaction Status Date / Time No Known Allergies (No Known Allergy Verified 05/09/25 17:49 Allergies*) Review of Systems Review of Systems: CONST: Negative for fever, body aches and chills. HENT: Negative for neck pain/stiffness, headache, congestion, sore throat, swelling. EYES: Negative for discharge/pain or vision changes. RESP: Negative for cough/hemoptysis and shortness of breath. CV: Negative chest pain, difficulty breathing, palpitations. ABD: Negative pain, nausea, vomiting. : Negative increase frequency, dysuria, blood in urine or stool. MUSC: Negative for muscle aches, edema. Right thumb pain, tightness SKIN: Negative rash, lesions/sores. NEURO: Negative headache, dizziness, weakness. Yes all other systems are reviewed and are negative [facility] Past Medical History Medical History Back pain History of ETOH abuse Chronic hepatitis C Hernia Opioid use disorder Intravenous drug abuse in remission Anxiety Depression HTN (hypertension) Surgical History History of amputation of finger Hx of surgical amputation of finger Family History Family History Mother Lung cancer Social History Social History Household Members: Family Housing: House Alcohol intake: current Alcohol intake frequency: 3 or more drinks per day 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 Patient Tobacco Use Status: Current everyday Tobacco user Tobacco use type: Cigarette Cigarette Packs Per Day: 1.0 Cigarettes Per Day: 20.0 Substance Use Type: Marijuana Advance Directives: Yes Advance Directives on File: Yes Advance Directives Date on File: 08/04/21 service: No Current occupational status: unemployed Physical Exam ED Vital Signs: Vital Signs - 24 hr 05/09/25 10:55 05/09/25 15:38 05/09/25 15:58 Temperature 98.3 F 97.6 F 97.6 F Pulse Rate 82 65 65 Respiratory Rate 16 17 17 Blood Pressure 136/78 133/93 H 133/93 H Pulse Oximetry 97 96 96 Oxygen Delivery Method Room Air Room Air Room Air BMI result Body Mass Index 27.5 GENERAL APPEARANCE: ?AxOx4, generally well-appearing, no acute distress. HEENT: ?NC, AT. MMM. EOMI, clear conjunctiva, oropharynx clear. NECK: ?Supple without lymphadenopathy.? No stiffness or restricted ROM. HEART:? Normal rate and regular rhythm, normal S1/S1, no m/r/g LUNGS:? CTAB, moving air well. No crackles or wheezes are heard. ABDOMEN: ?Soft, nontender, nondistended with good bowel sounds heard. BACK: No CVAT, no obvious deformity. EXTREMITIES: ?Without cyanosis, clubbing or edema, R 1st digit with TTP of distal finger tip, no active drainage, no warmth, no streaking, no erythema ROM intact, opposition intact, see photos NEUROLOGICAL: ?Grossly nonfocal. Alert and oriented, moving all 4 extremities. Observed to ambulate with normal gait. Skin: ?Warm and dry without any rash Medications Administered Discontinued Medications Generic Name Dose Route Start Last Admin Trade Name Freq PRN Reason Stop Dose Admin Iohexol 100 ml 05/09/25 14:02 05/09/25 14:03 Iohexol 350 Mg/Ml 100 Ml Infus..Btl IV 05/09/25 14:03 100 ml ONCE ONE Administration Medical Decision Making Medical Decision Making [facility] Narrative: 54-year-old male with medical history of OUD in remission since 2022, anxiety, depression, HTN, presents to the ED due to 5 weeks of right thumb pain. Patient states 5 weeks ago he thought he had a ?sliver? in his right thumb while working. 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 He is unsure what exactly has happened of the thumb, is questioning whether he had some type of foreign body or bite to the thumb. Patient was seen in the department approximately 5 weeks ago on 03/21/2025 and had I and D done and started on ABX therapy. Patient states 2 weeks he was still experiencing pain with the right thumb, and was expressing some clear fluid. He was seen at [facility] who also performed I and D, and started patient ABX therapy. Patient states he has finished both courses of antibiotics with no effect. Patient states over the last 2 days he has experienced increased pain of the right thumb, with tightness when flexing. He states he has been using home Exacto knife to try to get out ?sliver? in his thumb without effect. VSS, BP 136/78, pulse rate 82, respiratory rate of 16, afebrile with oral temperature of 98.3?, O2 saturation 97% on room air. On physical exam right 1st digit TTP of distal fingertip, mild erythema, no streaking, no active drainage, no fluctuance, full ROM and opposition, SILT, compartment soft. Plan: labs, R hand XR Course 13:12- Labs with mild leukopenia at 4.6, ESR/CRP negative. R hand XR without retained foreign body, however questions osteomyelitis. I will obtain CT imaging for further evaluation of osteomyelitis. On physical exam it is difficult to tell if this is cellulitis, irritation due to patient manipulating the area with Exacto knife at home, or beginning of paronychia, patient states last tetanus was approximately 4 years ago. 15:23- CT are hand reveals osteomyelitis involving the tuft of the 1st distal phalanx, overlying subcutaneous edema, and small amount of punctate gas, without evidence of abscess. Patient needs IV antibiotics, patient states he needs to leave to take his home as she does not have a ride, he has no money for over. I stressed that patient needs IV antibiotics and is at risk of long-term disability, hand amputation, systemic infection leading to . Patient states he will come right back for treatment. Patient leaving AMA. Differential Diagnosis Differential Diagnoses: The differential diagnosis associated with the presentation includes Compartment syndrome Osteomyelitis Cellulitis Paronychia Felon Superficial irritation Admission/Observation Consideration of admission/observation: Escalation of care including admission/observation considered Lab Data MDM Lab Attestation statement: I reviewed the patient's lab results. 05/09/25 11:48 05/09/25 11:48 Labs: Lab Results 05/09/25 Range/Units 11:48 WBC 4.6 L (4.8-10.8) X10*3/uL RBC 4.13 L (4.60-5.80) X10*6/uL Hgb 13.2 L (14.0-18.0) g/dl Hct 37.7 L (42.0-52.0) % MCV 91.3 (80.0-98.0) fL MCH 32.0 (27.0-33.0) pg MCHC 35.0 (31.0-36.0) g/dl RDW 13.5 (11.0-16.0) % Plt Count 174 (160-400) X10*3/uL MPV 8.6 L (9.4-12.4) fL Immature Gran % (Auto) 0.2 (0.0-0.4) % Neut % (Auto) 65.5 (45-73) % Lymph % (Auto) 21.0 (20-40) % [place] % (Auto) 7.8 (2-11) % Eos % (Auto) 4.8 H (0-4) % Baso % (Auto) 0.7 (0-2) % Lymph # (Auto) 1.0 L (1.2-4.9) X10*3/uL [place] # (Auto) 0.4 (0.1-1.2) X10*3/uL Eos # (Auto) 0.2 (0.0-0.4) X10*3/uL Baso # (Auto) 0.0 (0.0-0.2) X10*3/uL Abs Immat Gran (auto) 0.01 (0.00-0.03) X10*3/uL Absolute Neuts (auto) 3.0 (2.0-8.3) x10*3/uL Absolute Nucleated RBC 0.000 (0.0-0.012) X10*3/uL Nucleated RBC % (auto) 0.0 (0.0-0.2) /100WBC ESR 8 (0-15) MM/HR Sodium 138 (135-145) mmol/L Potassium 4.2 (3.3-5.1) mmol/L Chloride 106 (96-108) mmol/L Carbon Dioxide 25 (22-29) mmol/L Anion Gap 11 L (12-20) BUN 14 (9-16) mg/dL Creatinine 0.72 (0.5-1.4) mg/dL Estim Creat Clear Calc 108.3 Estimated GFR > 60 Random Glucose 105 (60-115) mg/dL Calcium 8.6 (8.4-10.2) mg/dL Total Bilirubin 0.6 (0.0-1.0) mg/dL AST 27 (5-37) U/L ALT 25 (0-40) U/L Alkaline Phosphatase 71 (39-117) U/L C-Reactive Protein 0.24 (< or = 0.50) mg/dL Total Protein 6.6 (6.5-8.0) g/dL Albumin 4.0 (3.5-5.0) g/dL Independent Interpretation I performed an independent interpretation of an: Plain X-Ray Interpretation: I independently interpreted the R hand XR which does not reveal foreign body, fracture, dislocation, I agree with the radiologist's interpretation Radiology Impression Discussion of test interpretation with radiology: I have reviewed the radiologist's reading. Radiologist Impression: R hand XR Findings: Bones intact. No dislocations. The patient is status post amputation of the distal aspect of the 1st digit. There are possible erosive changes involving the tip of the 1st distal phalanx. Osteomyelitis is not excluded. No foreign bodies are identified. IMPRESSION: Deformity of distal 1st digit likely postoperative in nature. Apparent erosion of the distal aspect of the 1st distal phalanx may be postoperative in nature. Osteomyelitis is not excluded here. Please correlate clinically. This document has been electronically signed by: Blake Lozada MD on 05/09/2025 12:57:49 Dictated By: Blake Lozada MD Signed By: <Electronically signed by Blake Lozada MD in [place]> 05/09/[address] R hand FINDINGS: Soft tissue mild soft tissue edema overlies the right hand most pronounced along the distal aspect of the 1st digit. No organizing fluid collection or foreign body. Visualized portions of the distal radius and ulna appear intact. There is decreased radioulnar joint space. Carpal bones appear intact. Degenerative changes of the intercarpal joints most pronounced at the triscaphe joint. 1st carpometacarpal joint space narrowing. Metacarpals appear intact. Small osteophytes present along the heads of the 2nd and 3rd metacarpals. Erosions present along the tuft of the 1st distal phalanx (series 4, image 184). No periostitis. There is overlying soft tissue edema. Question small amount of subcutaneous gas versus skin defect overlying the lateral aspect of the 1st distal phalanx (series 4, image 178). No organizing fluid collection. Remaining phalanges appear intact. IMPRESSION: 1. Findings consistent with osteomyelitis involving the tuft of the 1st distal phalanx. There is overlying subcutaneous edema and small amount of punctate gas possibly representing a location for skin defect. Recommend correlation clinically. No evidence of abscess. This document has been electronically signed by: Alcon Nelson MD on 05/09/2025 15:23:09 Dictated By: Alcon Nelson MD Signed By: <Electronically signed by Alcon Nelson MD in [place]> 05/09/25 1524 External Record Review External record reviewed: Inpatient record, Office record and Outpatient record Chronic Conditions Patient?s care impacted by: Hypertension and Other (OUD in remission since 2022) Discharge Plan Discharge Clinical Impression: Osteomyelitis Patient Disposition: Left Against Medical Advice Additional Instructions: You were evaluated in the ED today due to pain of your right thumb. Your CT imaging of your right hand revealed a bone infection called osteomyelitis of your right thumb. You need hospital admission with IV antibiotics to treat this infection. If you do not come back to the hospital to treat this infection you are at risk of losing your right hand, permanent disability, or the infection traveling into your blood stream and causing . You need to return to the emergency department today so you can be admitted to the hospital and started on IV antibiotics for treatment of your bone infection. Prescriptions: No Action Sublocade 300 mg/1.5 mL solution, extended rel syringe subcut doxycycline monohydrate 100 mg capsule 100 mg PO BID 10 Days Qty: 20 0RF sennosides [Senna Lax] 8.6 mg Tablet 8.6 mg PO BEDTIME Qty: 30 0RF acetaminophen 325 mg Tablet 650 mg PO Q6H PRN (Reason: Pain, Mild (Pain Scale 1-3)) Qty: 1 0RF naproxen 500 mg tablet 500 mg PO BID PRN (Reason: pain) Qty: 14 0RF Rx Instructions: Take with food prednisone 50 mg tablet 50 mg PO DAILY 4 Days Qty: 4 0RF naloxone [Narcan] 4 mg/actuation spray,non-aerosol 4 mg intranasal Q2M PRN (Reason: opioid overdose) Qty: 2 0RF Rx Instructions: spray 1 dose into ONE nostril; alternate nostrils w each dose until help arrives prednisone 20 mg tablet 40 mg PO DAILY 5 Days Qty: 10 0RF acetaminophen [Tylenol Extra Strength] 500 mg tablet 500 mg PO Q6H PRN (Reason: fever or pain) Qty: 14 0RF ketorolac 10 mg tablet 10 mg PO TID PRN (Reason: pain) 5 Days Qty: 15 0RF cyclobenzaprine 5 mg tablet 5 mg PO Q8H PRN (Reason: pain (scale score 7-10)) 5 Days Qty: 14 0RF cyclobenzaprine 10 mg tablet 10 mg PO TID PRN (Reason: pain) Qty: 14 0RF ibuprofen 400 mg tablet 400 mg PO Q6H PRN (Reason: pain) Qty: 20 0RF ketorolac 10 mg tablet 10 mg PO TID PRN (Reason: pain) Qty: 15 0RF Rx Instructions: Do not take this medication with other NSAIDs such as ibuprofen, naproxen. diazepam 2 mg tablet 2 mg PO BEDTIME PRN (Reason: muscle spasm) Qty: 7 0RF cyclobenzaprine 10 mg tablet 10 mg PO TID PRN (Reason: muscle spasm) 7 Days Qty: 21 0RF cephalexin 500 mg tablet 500 mg PO QID Qty: 28 0RF Stand Alone Forms: Against Medical Advice Interventions: ED Discharge Assessment Last Done: 05/09/25 15:58 Discharge Date/Time: 05/09/25 15:59 Print Language: Swedish
[2025-05-09 11:55] LABS: MANUAL DIFF FLAG NO
[2025-05-09 11:57] LABS: Hematocrit 37.7 % (42.0-52.0); Hemoglobin 13.2 g/dl (14.0-18.0); Imm Gran Abs Auto 0.01 X10*3/uL (0.00-0.03); Imm Gran Pct Auto 0.2 % (0.0-0.4); Lymphocytes Absolute Auto 1.0 X10*3/uL (1.2-4.9); Mean Corpuscular HGB Conc 35.0 g/dl (31.0-36.0); Mean Corpuscular Hemoglobin 32.0 pg (27.0-33.0); Mean Corpuscular Volume 91.3 fL (80.0-98.0); NRBC Abs Auto 0.000 X10*3/uL (0.0-0.012); NRBC Pct Auto 0.0 /100WBC (0.0-0.2); Platelet Count 174 X10*3/uL (160-400); Red Blood Count 4.13 X10*6/uL (4.60-5.80); White Blood Count 4.6 X10*3/uL (4.8-10.8)
[2025-05-09 12:13] LABS: Alanine Aminotransferase 25 U/L (0-40); Albumin Level 4.0 g/dL (3.5-5.0); Alkaline Phosphatase 71 U/L (39-117); Anion Gap 11 (12-20); Aspartate Amino Transferase 27 U/L (5-37); Blood Urea Nitrogen 14 mg/dL (9-16); Calcium 8.6 mg/dL (8.4-10.2); Carbon Dioxide 25 mmol/L (22-29); Chloride 106 mmol/L (96-108); Creatinine Clr Calc Pharmacy 108.3; Estimated Glomerular Filt Rate > 60; Potassium 4.2 mmol/L (3.3-5.1); Sodium 138 mmol/L (135-145); Total Protein 6.6 g/dL (6.5-8.0)
--- NOTE | 2025-05-09 14:00 | PC.NURSE ---
20gIV placed in the left upper arm - patent/intact. pt currently waiting for CT to be completed at this time. plan of care ongoing.
[2025-05-09] MEDS: iohexoL 350 MG/ML 100 ML INFUS..BTL IV (14:03)
[2025-05-09 15:38] VITALS: BP 133/93; PULSE 65; RESP 17; TEMP 36.4; O2SAT 96
--- NOTE | 2025-05-09 15:38 | PC.NURSE ---
pt requesting to leave AMA despite being told CT scan results. pt states that his needs to be picked up from work and she has no other alternatives. charge aide offered for to get an uber here so patient can continue to stay/be a medical admit but patient refused.
[2025-05-09 15:58] VITALS: BP 133/93; PULSE 65; RESP 17; TEMP 36.4; O2SAT 96
== END 2025-05-09 15:59 | disposition left against medical advice (07) ==
PROVIDERS: Emergency Provider Emergency Medicine; PCP Internal Medicine
DX: M86.9 Osteomyelitis, unspecified (principal); M79.641 Pain in right hand; F41.9 Anxiety disorder, unspecified; F32.A Depression, unspecified; I10 Essential (primary) hypertension; K73.9 Chronic hepatitis, unspecified; F17.210 Nicotine dependence, cigarettes, uncomplicated; F12.90 Cannabis use, unspecified, uncomplicated; Z53.29 Procedure and treatment not carried out because of patient's decision for other reasons
CPT/HCPCS: 36415; 73130; 73201; 80053; 85025; 85652; 86140; 99284; Q9967

== ENCOUNTER → 2025-05-09 11:30 | Outpatient (BNV) | payer MEDICAID, SELFPAY | PROVIDERS: Emergency Provider Emergency Medicine; PCP Internal Medicine; Visit Provider Radiology Diagnostic Radiology | DX: M79.644 Pain in right finger(s) (principal) | CPT/HCPCS: 73130; 73201 ==

== ENCOUNTER 2025-05-09 17:25 | Inpatient (IN) | payer MEDICAID, SELFPAY ==
--- NOTE | 2025-05-09 | ECG_ITS ---
Test Reason : assess QT for meds Blood Pressure : */* mmHG Vent. Rate : 47 BPM Atrial Rate : 47 BPM P-R Int : 140 ms QRS Dur : 98 ms QT Int : 462 ms P-R-T Axes : 19 44 36 degrees QTcB Int : 408 ms Sinus bradycardia Otherwise normal ECG When compared with ECG of 03-Aug-2023 02:49, Vent. rate has decreased by 46 bpm Referred By: Shari Barillas Electronically Signed By: Chace Durand
--- NOTE | ~2025-05-09 | XR_ITS ---
EXAMINATION: XR CHEST CLINICAL INFORMATION: PICC line placement COMPARISON: March 23, 2023 TECHNIQUE: Frontal view of the chest was obtained. FINDINGS: No significant abnormality is noted involving the heart, lungs, mediastinum, bony thorax or soft tissues. Mild degenerative changes are present in the right AC joint. XR/XR chest 1V IMPRESSION: No acute disease Electronically signed by: Jadiel Ramirez MD 05/14/2025 03:32 PM EDT
--- NOTE | 2025-05-09 17:43 | ED.GENADULT ---
HPI - General Adult General Chief complaint: Skin/Abscess/Foreign Body Stated complaint: left thumb infection/here today Time Seen by Provider: 05/09/25 18:29 Source: patient and RN notes reviewed Mode of arrival: ambulatory Limitations: no limitations History of Present Illness ED Provider: Naeem Yee PA-C HPI narrative: 54-year-old male with medical history of OUD in remission since 2022, anxiety, depression, HTN, presents to the ED due to 5 weeks of right thumb pain. Patient states 5 weeks ago he thought he had a ?sliver? in his right thumb while working. 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 He is unsure what exactly has happened of the thumb, is questioning whether he had some type of foreign body or bite to the thumb. Patient was seen in the department approximately 5 weeks ago on 03/21/2025 and had I and D done and started on ABX therapy. Patient states 2 weeks he was still experiencing pain with the right thumb, and was expressing some clear fluid. He was seen at [facility] who also performed I and D, and started patient ABX therapy. Patient states he has finished both courses of antibiotics with no effect. Patient states over the last 2 days he has experienced increased pain of the right thumb, with tightness when flexing. He states he has been using home Exacto knife to try to get out ?sliver? in his thumb without effect. Patient was seen earlier today in the ED, osteomyelitis found on CT of right hand, patient had to leave to help his get home from work. Patient just presented back to the ED for admission and IV antibiotics for osteomyelitis. complaint: osteomyelitis Related Data Home Medications ?Medication ?Instructions ?Recorded ?Confirmed buprenorphine 300 mg/1.5 mL mg subcut 02/23/22 02/23/22 solution,exten.rel.subcutaneous syringe (Sublocade) Previous Rx's ?Medication ?Instructions ?Recorded acetaminophen 325 mg tablet 650 mg (2 x 325 mg) PO Q6H PRN 08/02/21 Pain, Mild (Pain Scale 1-3) #1 tab sennosides 8.6 mg tablet (Senna 8.6 mg PO BEDTIME #30 tabs 08/02/21 Lax) naproxen 500 mg tablet 500 mg PO BID PRN pain #14 tabs 02/07/22 doxycycline monohydrate 100 mg 100 mg PO BID 10 days #20 caps 09/24/22 capsule prednisone 50 mg tablet 50 mg PO DAILY 4 days #4 tabs 03/23/23 naloxone 4 mg/actuation nasal 4 mg intranasal Q2M PRN opioid 06/15/23 spray (Narcan) overdose #2 ea acetaminophen 500 mg tablet 500 mg PO Q6H PRN fever or pain 07/27/23 (Tylenol Extra Strength) #14 tabs cyclobenzaprine 5 mg tablet 5 mg PO Q8H PRN pain (scale score 07/27/23 7-10) 5 days #14 tabs ketorolac 10 mg tablet 10 mg PO TID PRN pain 5 days #15 07/27/23 tabs prednisone 20 mg tablet 40 mg (2 x 20 mg) PO DAILY 5 days 07/27/23 #10 tabs cyclobenzaprine 10 mg tablet 10 mg PO TID PRN pain #14 tabs 08/03/23 ibuprofen 400 mg tablet 400 mg PO Q6H PRN pain #20 tabs 08/03/23 diazepam 2 mg tablet 2 mg PO BEDTIME PRN muscle spasm 08/07/23 #7 tabs ketorolac 10 mg tablet 10 mg PO TID PRN pain #15 tabs 08/07/23 cyclobenzaprine 10 mg tablet 10 mg PO TID PRN muscle spasm 7 08/08/23 days #21 tabs cephalexin 500 mg tablet 500 mg PO QID #28 tabs 03/21/25 Allergies Allergy/AdvReac Type Severity Reaction Status Date / Time No Known Allergies (No Known Allergy Verified 05/09/25 17:49 Allergies*) Review of Systems Review of Systems: CONST: Negative for fever, body aches and chills. HENT: Negative for neck pain/stiffness, headache, congestion, sore throat, swelling. EYES: Negative for discharge/pain or vision changes. RESP: Negative for cough/hemoptysis and shortness of breath. CV: Negative chest pain, difficulty breathing, palpitations. ABD: Negative pain, nausea, vomiting. : Negative increase frequency, dysuria, blood in urine or stool. MUSC: Negative for muscle aches, edema. POS R thumb pain SKIN: Negative rash, lesions/sores. NEURO: Negative headache, dizziness, weakness. Yes all other systems are reviewed and are negative [facility] Past Medical History Attestation statement: The following information was validated with the patient. 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 Patient Tobacco Use Status: Current everyday Tobacco user Tobacco use type: Cigarette Cigarette Packs Per Day: 1.0 Cigarettes Per Day: 20.0 Smoked in Last 30 Days: Yes Use of substances other than those prescribed or required for medical reasons: Yes Substance Use Type: Marijuana Advance Directives: Yes Advance Directives on File: Yes Advance Directives Date on File: 08/04/21 service: No Current occupational status: unemployed Physical Exam ED Vital Signs: Vital Signs - 24 hr 05/09/25 17:48 05/09/25 18:40 Temperature 97.5 F 98.1 F Pulse Rate 85 79 Respiratory Rate 16 16 Blood Pressure 130/82 119/69 Pulse Oximetry 95 97 Oxygen Delivery Method Room Air Room Air BMI result Body Mass Index 27.5 GENERAL APPEARANCE: ?AxOx4, generally well-appearing, no acute distress. HEENT: ?NC, AT. MMM. EOMI, clear conjunctiva, oropharynx clear. NECK: ?Supple without lymphadenopathy.? No stiffness or restricted ROM. HEART:? Normal rate and regular rhythm, normal S1/S1, no m/r/g LUNGS:? CTAB, moving air well. No crackles or wheezes are heard. ABDOMEN: ?Soft, nontender, nondistended with good bowel sounds heard. BACK: No CVAT, no obvious deformity. EXTREMITIES: ?Without cyanosis, clubbing or edema, R 1st digit with TTP of distal finger tip, no active drainage, no warmth, no streaking, no erythema ROM intact, opposition intact, see photos NEUROLOGICAL: ?Grossly nonfocal. Alert and oriented, moving all 4 extremities. Observed to ambulate with normal gait. Skin: ?Warm and dry without any rash Course Course Course Narrative: Marcy Sin [employer] 05/09 1746 This is a rapid medical exam. Defer additional HPI, ROS and PE to primary provider. 54-year-old male with medical history of OUD in remission since 2022, anxiety, depression, HTN, who was seen here earlier and diagnosed with osteomyelitis of the right hand first digit who was recommended to be admitted but left to take care of a family matter returns for admission. No changes since discharge. VSS Medications Administered Discontinued Medications Generic Name Dose Route Start Last Admin Trade Name Gris PRN Reason Stop Dose Admin Ceftriaxone Sodium 2 gm 05/09/25 18:29 05/09/25 19:10 Ceftriaxone Sodium 2 Gm Vial IVPUSH 05/09/25 18:30 2 gm ONCE ONE Administration Vancomycin HCl 2,000 mg in 500 mls @ 250 mls/hr 05/09/25 18:29 05/09/25 19:24 Vancomycin/Ns IV 05/09/25 20:28 250 mls/hr ONCE ONE Administration Medical Decision Making Medical Decision Making [facility] Narrative: 54-year-old male with medical history of OUD in remission since 2022, anxiety, depression, HTN, presents to the ED due to 5 weeks of right thumb pain. Patient states 5 weeks ago he thought he had a ?sliver? in his right thumb while working. Patient states he works on [employer] with multiple substances including lead and asbestos. He is unsure what exactly has happened of the thumb, is questioning whether he had some type of foreign body or bite to the thumb. Patient was seen in the department approximately 5 weeks ago on 03/21/2025 and had I and D done and started on ABX therapy. Patient states 2 weeks he was still experiencing pain with the right thumb, and was expressing some clear fluid. He was seen at [facility] who also performed I and D, and started patient ABX therapy. Patient states he has finished both courses of antibiotics with no effect. Patient states over the last 2 days he has experienced increased pain of the right thumb, with tightness when flexing. He states he has been using home Exacto knife to try to get out ?sliver? in his thumb without effect. VS-BP 119/69, pulse rate of 79, respiratory rate of 16, afebrile with oral temp of 98.1?, O2 saturation 97% on room air. XR R hand revealed questionable osteomyelitis CT R hand revealed osteomyelitis of the tuft of the 1st distal phalanx, overlying subcutaneous edema and small amount of punctate gas, without evidence of abscess. Patient does not meet sepsis criteria at this time. Patient being medicated with 2 g ceftriaxone, vancomycin for osteomyelitis. Patient to be admitted to Medicine for further management and observation. I spoke with Dr. Chito Ulloa who will admit patient to medicine. Differential Diagnosis Differential Diagnoses: The differential diagnosis associated with the presentation includes Compartment syndrome Osteomyelitis Cellulitis Paronychia Felon Superficial irritation Admission/Observation Consideration of admission/observation: Escalation of care including admission/observation considered Lab Data MDM Lab Attestation statement: I reviewed the patient's lab results. 05/09/25 19:04 05/09/25 19:04 Labs: Lab Results 05/09/25 Range/Units 19:04 WBC 5.4 (4.8-10.8) X10*3/uL RBC 4.12 L (4.60-5.80) X10*6/uL Hgb 13.0 L (14.0-18.0) g/dl Hct 37.5 L (42.0-52.0) % MCV 91.0 (80.0-98.0) fL MCH 31.6 (27.0-33.0) pg MCHC 34.7 (31.0-36.0) g/dl RDW 13.7 (11.0-16.0) % Plt Count 174 (160-400) X10*3/uL MPV 8.6 L (9.4-12.4) fL Immature Gran % (Auto) 0.2 (0.0-0.4) % Neut % (Auto) 64.7 (45-73) % Lymph % (Auto) 24.4 (20-40) % Swain % (Auto) 6.8 (2-11) % Eos % (Auto) 3.5 (0-4) % Baso % (Auto) 0.4 (0-2) % Lymph # (Auto) 1.3 (1.2-4.9) X10*3/uL Swain # (Auto) 0.4 (0.1-1.2) X10*3/uL Eos # (Auto) 0.2 (0.0-0.4) X10*3/uL Baso # (Auto) 0.0 (0.0-0.2) X10*3/uL Abs Immat Gran (auto) 0.01 (0.00-0.03) X10*3/uL Absolute Neuts (auto) 3.5 (2.0-8.3) x10*3/uL Absolute Nucleated RBC 0.000 (0.0-0.012) X10*3/uL Nucleated RBC % (auto) 0.0 (0.0-0.2) /100WBC ESR 10 (0-15) MM/HR Sodium 138 (135-145) mmol/L Potassium 4.3 (3.3-5.1) mmol/L Chloride 105 (96-108) mmol/L Carbon Dioxide 24 (22-29) mmol/L Anion Gap 13 (12-20) BUN 13 (9-16) mg/dL Creatinine 0.82 (0.5-1.4) mg/dL Estim Creat Clear Calc 95.1 Estimated GFR > 60 Random Glucose 138 H (60-115) mg/dL Lactic Acid 1.5 (0.5-2.0) mmol/L Calcium 8.8 (8.4-10.2) mg/dL Magnesium 1.9 (1.6-2.6) mg/dL Total Bilirubin 0.7 (0.0-1.0) mg/dL AST 27 (5-37) U/L ALT 27 (0-40) U/L Alkaline Phosphatase 72 (39-117) U/L C-Reactive Protein 0.23 (< or = 0.50) mg/dL Total Protein 6.7 (6.5-8.0) g/dL Albumin 4.1 (3.5-5.0) g/dL Radiology Impression Radiologist Impression: XR R hand Findings: Bones intact. No dislocations. The patient is status post amputation of the distal aspect of the 1st digit. There are possible erosive changes involving the tip of the 1st distal phalanx. Osteomyelitis is not excluded. No foreign bodies are identified. IMPRESSION: Deformity of distal 1st digit likely postoperative in nature. Apparent erosion of the distal aspect of the 1st distal phalanx may be postoperative in nature. Osteomyelitis is not excluded here. Please correlate clinically. This document has been electronically signed by: Blake Lozada MD on 05/09/2025 12:57:49 Dictated By: Blake Lozada MD Signed By: <Electronically signed by Blake Lozada MD in [place]> 05/09/[address] R hand FINDINGS: Soft tissue mild soft tissue edema overlies the right hand most pronounced along the distal aspect of the 1st digit. No organizing fluid collection or foreign body. Visualized portions of the distal radius and ulna appear intact. There is decreased radioulnar joint space. Carpal bones appear intact. Degenerative changes of the intercarpal joints most pronounced at the triscaphe joint. 1st carpometacarpal joint space narrowing. Metacarpals appear intact. Small osteophytes present along the heads of the 2nd and 3rd metacarpals. Erosions present along the tuft of the 1st distal phalanx (series 4, image 184). No periostitis. There is overlying soft tissue edema. Question small amount of subcutaneous gas versus skin defect overlying the lateral aspect of the 1st distal phalanx (series 4, image 178). No organizing fluid collection. Remaining phalanges appear intact. IMPRESSION: 1. Findings consistent with osteomyelitis involving the tuft of the 1st distal phalanx. There is overlying subcutaneous edema and small amount of punctate gas possibly representing a location for skin defect. Recommend correlation clinically. No evidence of abscess. This document has been electronically signed by: Alcon Nelson MD on 05/09/2025 15:23:09 Dictated By: Alcon Nelson MD Signed By: <Electronically signed by Alcon Nelson MD in [place]> 05/09/25 1524 External Record Review External record reviewed: Inpatient record, Office record and Outpatient record Discharge Plan Discharge Patient Disposition: Admitted As Inpatient Print Language: Arabic
[2025-05-09 17:48] VITALS: BP 130/82; PULSE 85; RESP 16; TEMP 36.4; O2SAT 95; BMI 27.5
--- OUTSIDE RECORDS SUMMARY | 2025-05-09 18:39 | XMS_ITS | Clinical Summary ---
Author Organization [employer] Address [address] [facility] [address] [place] [address] Care Team Providers Care Bow String Maker Name Role Phone Silvia Fitzgerald MD Primary [...] Encounters Date Type Department Care Team Description 05/09/2025 Orders Only [facility] External Provider, [facility] 03/21/2025 Orders Only [facility] External Provider, [facility] from Last 3 Months Immunizations Immunization Administration Dates Next Due Influenza injectable quadrivalent preservative f ree 06/09/2021 Influenza, IIV3, injectable 06/09/2021 Moderna Covid-19 Vaccine 12+ 07/06/2021,05/27/20 21 Tdap 03/15/2021,02/08/2016 Social History Tobacco Use Types Packs/Day Years Used Date Smoking Tobacco: Every Day Cigarettes 0.5 43.6 Started: 1981 Smokeless Tobacco: Never Tobacco Cessation:Ready [...] Years (1 of 2 - PCV) 1987 Zoster Vaccines (1 of 2) 2018 COVID-19 Vaccine (3 - 2023-2 5 season) 2024 07/06/2021, 05/27/2021 Tobacco Screening 03/25/2025 03/25/2024 Influenza Vaccine (#1) 2025 , 06/09/2021 DTaP/Tdap/Td Vaccines (3 - T d [...] Procedure Name Priority Date/Time Associated Diagnosis Comments CT HAND W CONTRAST RIGHT Routine 05/09/2025 3:23 PM EDT XR HAND 3+ VIEWS RIGHT Routine 5 12:57 PM EDT SED RATE BY MODIFIED WESTERGREN Routine 05/09/2025 11:48 AM EDT C-REACTIVE PROTEIN Routine 05/09/2025 11 :48 AM EDT COMPREHENSIVE METABOLIC PANEL Routine 05/09/2025 11:48 AM EDT CBC WITH AUTO DIFFERENTIAL Routine 05/09/2025 11:48 AM EDT XR HAND 3+ VIEWS RIGHT Routine 5 2:39 PM EDT ZZZ HISTORICAL HIV AB/AG Routine 03/12/2020 4:40 PM EDT from Last 3 Months or Most Recently Relevant to Health Maintenance Results * CT Hand w/ Contrast Right (05/09/2025 3:23 PM EDT) Anatomical Region Laterality Modality Upper Extremities, Hand Right Computed Tomography 05/09/2025 3:23 PM EDT Narrative 05/09/2025 3:25 PM EDT [place] [id number] CT Scan Report Signed Patient: Adalberto Mari MR#: [id number] : 1970 Acct:[id number] Age/Sex: 54 / M ADM Date: 05/09/25 Loc: HO.ED Attending Dr: Ordering Physician: Nakia Hartley PA-C Date of Service: 05/09/25 Procedure(s): CT hand RT w IV con Accession Number(s): [id number] cc: Nakia Hartley PA-C; Silvia Fitzgerald MD Report Number: [id number]: Total DLP = 111.00 mGy-cm CLINICAL HISTORY: 5 weeks R thumb pain, ?osteo on xr need adtl image CT of the right hand with IV contrast. COMPARISON: XR right hand dated 05/09/25 at 12:06 EDT FINDINGS: Soft tissue mild soft tissue edema overlies the right hand most pronounced along the distal aspect of the 1st digit. No organizing fluid collection or foreign body. Visualized portions of the distal radius and ulna appear intact. There is decreased radioulnar joint space. Carpal bones appear intact. Degenerative changes of the intercarpal joints most pronounced at the triscaphe joint. 1st carpometacarpal joint space narrowing. Metacarpals appear intact. Small osteophytes present along the heads of the 2nd and 3rd metacarpals. Erosions present along the tuft of the 1st distal phalanx (series 4, image 184). No periostitis. There is overlying soft tissue edema. Question small amount of subcutaneous gas versus skin defect overlying the lateral aspect of the 1st distal phalanx (series 4, image 178). No organizing fluid collection. Remaining phalanges appear intact. IMPRESSION: 1. Findings consistent with osteomyelitis involving the tuft of the 1st distal phalanx. There is overlying subcutaneous edema and small amount of punctate gas possibly representing a location for skin defect. Recommend correlation clinically. No evidence of abscess. This document has been electronically signed by: Alcon Nelson MD on 05/09/2025 15:23:09 Dictated By: Alcon Nelson MD Signed By: <Electronically signed by Alcon Nelson MD in OV> 05/09/25 1524 DD/ 1523 TD/TT: 05/09/25 1523 Machine Learning Intern: Procedure Note Donotuseinterpreter, Image - 05/09/[address] [place] [id number] [address] Scan Report Signed Patient: Adalberto Mari CMR#: [id number] : 1970Acct:[id number] Age/Sex: 54 / MADM Date: 05/09/25 Loc: HO.ED Attending Dr: Ordering Physician: Nakia Hartley PA-C Date of Service: 05/09/25 Procedure(s): CT hand RT w IV con Accession Number(s): [id number] cc: Nakia Hartley PA-C; Silvia Fitzgerald MD Report Number: [id number]: Total DLP = 111.00 mGy-cm CLINICAL HISTORY: 5 weeks R thumb pain, ?osteo on xr need adtl image CT of the right hand with IV contrast. COMPARISON: XR right hand dated 05/09/25 at 12:06 EDT FINDINGS: Soft tissue mild soft tissue edema overlies the right hand most pronounced along the distal aspect of the 1st digit. No organizing fluid collection or foreign body. Visualized portions of the distal radius and ulna appear intact. There is decreased radioulnar joint space. Carpal bones appear intact. Degenerative changes of the intercarpal joints most pronounced at the triscaphe joint. 1st carpometacarpal joint space narrowing. Metacarpals appear intact. Small osteophytes present along the heads of the 2nd and 3rd metacarpals. Erosions present along the tuft of the 1st distal phalanx (series 4, image 184). No periostitis. There is overlying soft tissue edema. Question small amount of subcutaneous gas versus skin defect overlying the lateral aspect of the 1st distal phalanx (series 4, image 178). No organizing fluid collection. Remaining phalanges appear intact. IMPRESSION: 1. Findings consistent with osteomyelitis involving the tuft of the 1st distal phalanx. There is overlying subcutaneous edema and small amount of punctate gas possibly representing a location for skin defect. Recommend correlation clinically. No evidence of abscess. This document has been electronically signed by: Alcon Nelson MD on 05/09/2025 15:23:09 Dictated By: Alcon Nelson MD Signed By: <Electronically signed by Alcon Nelson MD in OV> 05/09/25 1524 DD/ 1523 TD/TT: 05/09/25 152 Machine Learning Intern: [facility] External Provider IMG CT PROCEDURES Edited Result - Final * XR Hand 3+ Views Right (05/09/2025 12:57 PM EDT) Only the most recent of2 resultswithin the time period is included. Anatomical Region Laterality Modality Upper Extremities, Hand Right Radiogra phic Imaging 05/09/2025 12:5 7 PM EDT Narrative 05/09/2025 12:59 PM EDT [place] [address] XRay Report Signed Patient: Adalberto Mari MR#: [id number] : 1970 Acct:[id number] Age/Sex: 54 / M ADM Date: 05/09/25 Loc: HO.ED Attending Dr: Ordering Physician: Nakia Hartley PA-C Date of Service: 05/09/25 Procedure(s): XR hand RT min 3V Accession Number(s): [id number] cc: Nakia Hartley PA-C; Silvia Fitzgerald MD CLINICAL HISTORY: ?FB in R thumb 3 view right hand Comparison: CR - XR HAND RT 2V - 03/21/25 13:38 EDT Findings: Bones intact. No dislocations. The patient is status post amputation of the distal aspect of the 1st digit. There are possible erosive changes involving the tip of the 1st distal phalanx. Osteomyelitis is not excluded. No foreign bodies are identified. IMPRESSION: Deformity of distal 1st digit likely postoperative in nature. Apparent erosion of the distal aspect of the 1st distal phalanx may be postoperative in nature. Osteomyelitis is not excluded here. Please correlate clinically. This document has been electronically signed by: Blake Lozada MD on 05/09/2025 12:57:49 Dictated By: Blake Lozada MD Signed By: <Electronically signed by Blake Lozada MD in OV> 05/09/25 1259 DD/ 1257 TD/TT: 05/09/25 1257 Machine Learning Intern: Procedure Note Donotuseinterpreter, Image - 05/09/2025 [place] [address] XRay Report Signed Patient: Adalberto Mari [facility]#: [id number] : 1970Acct:[id number] Age/Sex: 54 / MADM Date: 05/09/25 Loc: HO.ED Attending Dr: Ordering Physician: Nakia Hartley PA-C Date of Service: 05/09/25 Procedure(s): XR hand RT min 3V Accession Number(s): [id number] cc: Nakia Hartley PA-C; Silvia Fitzgerald MD CLINICAL HISTORY: ?FB in R thumb 3 view right hand Comparison: CR - XR HAND RT 2V - 03/21/25 13:38 EDT Findings: Bones intact. No dislocations. The patient is status post amputation of the distal aspect of the 1st digit. There are possible erosive changes involving the tip of the 1st distal phalanx. Osteomyelitis is not excluded. No foreign bodies are identified. IMPRESSION: Deformity of distal 1st digit likely postoperative in nature. Apparent erosion of the distal aspect of the 1st distal phalanx may be postoperative in nature. Osteomyelitis is not excluded here. Please correlate clinically. This document has been electronically signed by: Balke Lozada MD on 05/09/2025 12:57:49 Dictated By: Blake Lozada MD Signed By: <Electronically signed by Blake Lozada MD in OV> 05/09/25 1259 DD/ 1257 TD/TT: 05/09/25 1257 Machine Learning Intern: [facility] External Provider IMG XR PROCEDURES Edited Result - Final * (ABNORMAL) CBC auto differential (05/09/2025 11:48 AM EDT) White Blood Count 4.6(L) 4.8 - 10.8 X10*3/uL [facility] Red Blood Count 4.13(L) 4.60 - 5.80 X10*6/uL [facility] Hemoglobin 13.2(L) 14.0 - 18.0 g/dl [facility] Hematocrit 37.7(L) 42.0 - 52.0 % [facility] Mean Corpuscular Volume 91.3 80.0 - 98.0 fL [facility] Mean Corpuscular Hemoglobin 32.0 27.0 - 33.0 pg [facility] Mean Corpuscular HGB Conc 35.0 31.0 - 36.0 g/dl [facility] Red Cell Distribution Width 13.5 11.0 - 16.0 % [facility] Platelet Count 174 160 - 400 X10*3/uL [facility] Mean Platelet Volume 8.6(L) 9.4 - 12.4 fL [facility] Neutrophils Percent Auto 65.5 45 - 73 % [facility] Imm Gran Pct Auto 0.2 0.0 - 0.4 % [facility] Lymphocytes Percent Auto 21.0 20 - 40 % [facility] Monocytes Percent Auto 7.8 2 - 11 % [facility] Eosinophils Percent Auto 4.8(H) 0 - 4 % [facility] Basophils Percent Auto 0.7 0 - 2 % [facility] NRBC Pct Auto 0.0 0.0 - 0.2 /100WBC [facility] Neutrophils Absolute Auto 3.0 2.0 - 8.3 x10*3/uL [facility] Imm Gran Abs Auto 0.01 0.00 - 0.03 X10*3/uL [facility] Lymphocytes Absolute Auto 1.0(L) 1.2 - 4.9 X10*3/uL [facility] Monocytes Absolute Auto 0.4 0.1 - 1.2 X10*3/uL [facility] Eosinophils Absolute Auto 0.2 0.0 - 0.4 X10*3/uL [facility] Basophils Absolute Auto 0.0 0.0 - 0.2 X10*3/uL [facility] NRBC Abs Auto 0.000 0.0 - 0.012 X10*3/uL [facility] 05/09/2025 11:4 8 AM EDT 05/09/2025 11:52 AM EDT Generic External Data Provider LAB BLOOD ORDERAB LES Final Result Performing Organization Address [facility] Co de Phone Number [facility] [address] [place] [phone] * Sed Rate by Modified Westergren (05/09/2025 11:48 AM EDT) Erythrocyte Sedimentation Rate 8 0 - 15 MM/HR [facility] Comment:Patients with polycy themia and many hemoglobin abnormalitiesmay have depressed sed rates whereas patients with anemiamay have elevated sed rates. 05/09/2025 11:4 8 AM EDT 05/09/2025 11:52 AM EDT Generic External Data Provider LAB BLOOD ORDERAB LES Final Result Performing Organization Address [facility] Co de Phone Number [facility] [address] [place] [phone] * C-reactive Protein (05/09/2025 11:48 AM EDT) C Reactive Protein 0.24 < or = 0.50 mg/dL [facility] 05/09/2025 11:4 8 AM EDT 05/09/2025 11:52 AM EDT us Generic External Data Provider LAB BLOOD ORDERAB LES Final Result [facility] [address] [place] [phone] * (ABNORMAL) Comprehensive Metabolic Panel (05/09/2025 11:48 AM EDT) Sodium 138 135 - 145 mmol/L [facility] Potassium 4.2 3.3 - 5.1 mmol/L [facility] Chloride 106 96 - 108 mmol/L [facility] Carbon Dioxide 25 22 - 29 mmol/L [facility] Anion Gap 11(L) 12 - 20 [facility] Urea Nitrogen (BUN) 14 9 - 16 mg/dL [facility] Creatinine, Serum 0.72 0.5 - 1.4 mg/dL [facility] Creatinine Clr Calc Pharmacy 108.3 [facility] Comment:eGFR (calculated fro m the MDRD study equation) and eCrCl(calculated from the Cockcroft-Gault equation) are based ondifferent parameters and may not yield comparable results.If eCrCl result is absurd, please check patient'sheight/weight. Estimated Glomerular Filt Rate >60 [facility] Comment:Chronic Kidney Disea se: Estimated GFR < 60 mL/min/1.82a2Cznlsa Kidney Disease: Estimated GFR < 15 mL/min/1.73m2 Glucose 105 60 - 115 mg/dL [facility] Calcium 8.6 8.4 - 10.2 mg/dL [facility] Bilirubin, Total 0.6 0.0 - 1.0 mg/dL [facility] Aspartate Amino Transferase 27 5 - 37 U/L [facility] Alanine Aminotransferase 25 0 - 40 U/L [facility] Total Protein 6.6 6.5 - 8.0 g/dL [facility] Albumin Level 4.0 3.5 - 5.0 g/dL [facility] Alkaline Phosphatase 71 39 - 117 U/L [facility] 05/09/2025 11:4 8 AM EDT 05/09/2025 11:52 AM EDT us Generic External Data Provider LAB BLOOD ORDERAB LES Final Result [facility] [address] [place] [phone] * HIV AB/AG (03/12/2020 4:40 PM EDT) Pathologist [facility] HIV AG/AB NONREACTIVE NR FOUNDATI ON LAB [...] of detection of this assay. The [employer] Super[employer] HIV Ag/Ab Combo assay result and supplemental assay results should be interpreted in conjunction with the patient's clinical presentation, history and other laboratory results. If the results are inconsistent with clinical evidence, additional testing is suggested to confirm the result. 03/12/2020 4:40 PM EDT us Santos Haley MD HISTORICAL/NON ORDERABLE LABS Fi nal Result Performing Organization Address City/[facility]/ZIP Co de Phone Number [facility] [address] from Last 3 Months or Most Recently Relevant to Health Maintenance Insurance [facility] C3 Care Teams Bow String Maker Relationship Specialty Start Date End Date Silvia Fitzgerald MD [address] [place] [phone] PCP - General Family Medicine 12/12/18
[2025-05-09 18:40] VITALS: BP 119/69; PULSE 79; RESP 16; TEMP 36.7; O2SAT 97
[2025-05-09 19:10] LABS: MANUAL DIFF FLAG NO
[2025-05-09 19:11] LABS: Hematocrit 37.5 % (42.0-52.0); Hemoglobin 13.0 g/dl (14.0-18.0); Imm Gran Abs Auto 0.01 X10*3/uL (0.00-0.03); Imm Gran Pct Auto 0.2 % (0.0-0.4); Lymphocytes Absolute Auto 1.3 X10*3/uL (1.2-4.9); Mean Corpuscular HGB Conc 34.7 g/dl (31.0-36.0); Mean Corpuscular Hemoglobin 31.6 pg (27.0-33.0); Mean Corpuscular Volume 91.0 fL (80.0-98.0); NRBC Abs Auto 0.000 X10*3/uL (0.0-0.012); NRBC Pct Auto 0.0 /100WBC (0.0-0.2); Platelet Count 174 X10*3/uL (160-400); Red Blood Count 4.12 X10*6/uL (4.60-5.80); White Blood Count 5.4 X10*3/uL (4.8-10.8)
[2025-05-09] MEDS: vancomycin/NS 2,000 MG/500 ML PLAST..BAG 250 MG IV (19:24)
[2025-05-09 19:26] LABS: Alanine Aminotransferase 27 U/L (0-40); Albumin Level 4.1 g/dL (3.5-5.0); Alkaline Phosphatase 72 U/L (39-117); Anion Gap 13 (12-20); Aspartate Amino Transferase 27 U/L (5-37); Blood Urea Nitrogen 13 mg/dL (9-16); Calcium 8.8 mg/dL (8.4-10.2); Carbon Dioxide 24 mmol/L (22-29); Chloride 105 mmol/L (96-108); Creatinine Clr Calc Pharmacy 95.1; Estimated Glomerular Filt Rate > 60; Magnesium 1.9 mg/dL (1.6-2.6); Potassium 4.3 mmol/L (3.3-5.1); Sodium 138 mmol/L (135-145); Total Protein 6.7 g/dL (6.5-8.0)
--- NOTE | 2025-05-09 21:13 | PM.IMHP ---
History of Present Illness Date of Service: 05/09/25 Attending physician on admission: Vladislav Ulloa Chief Complaint: thumb pain Patient is a 54-year-old male with a past medical history significant for opioid use disorder on Sublocade, anxiety, depression, hypertension, history MRSA bacteremia, history of epidural abscess, Tobacco use disorder, multiple recent ED visits due to infection of the right thumb with I&D. The patient was seen here 03/21 treated with I+D, PO abx, and imaging negative for osteo or foreign body. 2 weeks later he was seen at [facility] again for I+D and PO abx, completed antibiotics as prescribed, however is still experiencing right thumb pain. He has been using a scapal at home to try to retrieve a foreign body. He reports 2 days ago started worsening with throbbing and pulsating sensation. The pain improves when he constricts this thumb, he is currently taping his thumb to help with his pain. He reports a clear drainage when he tries to express fluid from the puncture on the distal phalanx. He denies fever, chills, nausea or vomiting. 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 Review of Systems Constitutional: Constitutional: Denies body ache(s), Denies chills, Denies fatigue, Denies fever(s) and Denies headache(s) Eyes: Eyes: Denies change in vision ENT: Denies headache(s), Denies nasal discharge and Denies sore throat Cardiovascular: Cardiovascular: Denies chest pain, Denies rapid heart rate, Denies leg edema, Denies lightheadedness and Denies dyspnea Respiratory: Respiratory: Denies chest congestion, Denies cough, Denies dyspnea and Denies wheezing Gastrointestinal: Gastrointestinal: Denies abdominal pain, Denies diarrhea, Denies nausea and Denies vomiting Genitourinary: Genitourinary: Denies dysuria, Denies urinary frequency and Denies urinary urgency Musculoskeletal: Musculoskeletal: Denies myalgias Integumentary/Breasts: Skin/Breast: Denies rash Neurologic: Denies confusion and Denies headache(s) Psychiatric: Psychiatric: Denies confusion Endocrine: Endocrine: Denies fatigue Hematologic/Lymphatic: Hematologic/Lymphatic: Denies easy bleeding and Denies easy bruising Allergic/Immunologic: Allergic/Immunologic: Denies wheezing [facility] Medical History Tobacco user (12/31/18) Chronic alcoholism in remission (03/21/18) Back pain History of ETOH abuse Chronic hepatitis C Hernia Opioid use disorder Intravenous drug abuse in remission Anxiety Depression HTN (hypertension) Functional capacity: independent ambulation Family History Mother Lung cancer Surgical History History of amputation of finger Hx of surgical amputation of finger Social History Household Members: Family Housing: House Alcohol intake: former 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 Currently on Sublocade Meds Allergies Allergy/AdvReac Type Severity Reaction Status Date / Time No Known Allergies (No Known Allergy Verified 05/09/25 17:49 Allergies*) Active Medications: Current Medications Acetaminophen (Acetaminophen 325 Mg Tablet) 975 mg PO Q6H PRN PRN Reason: Pain, Mild 1-3,fever,headache Calcium Carbonate (Calcium Carbonate 750 Mg Tab.Chew) 750 mg PO Q4H PRN PRN Reason: Heartburn Enoxaparin Sodium (Enoxaparin Sodium 40 Mg/0.4 Ml Syringe) 40 mg SUBCUT Q24H [facility] Piperacillin Sod/Tazobactam (Sod 3.375 gm/ Sodium Chloride) 50 mls @ 100 mls/hr IV Q6H [facility] Magnesium Hydroxide (Milk Of Magnesia 30 Ml Oral.Susp) 30 ml PO DAILY PRN PRN Reason: Constipation Melatonin (Melatonin 3 Mg Tablet) 6 mg PO BEDTIME PRN PRN Reason: Insomnia Oxycodone HCl (Oxycodone Hcl Immed Release 5 Mg Tablet) 5 mg PO Q6H PRN PRN Reason: Pain, Severe (Pain Scale 7-10) Pharmacy Consult (Consult Rx Vancomycin Dosing) 1 each MISCELLANE DAILY PRN PRN Reason: Consult order Sodium Chloride (0.9 % Sodium Chloride Flush 3 Ml Syringe) 3 ml IVFLUSH QSHIFT [facility] Tramadol HCl (Tramadol Hcl 50 Mg Tablet) 50 mg PO Q6H PRN PRN Reason: Pain, Moderate(Pain Scale 4-6) Home Medications ?Medication ?Instructions ?Recorded ?Confirmed ?Last Taken ?Type buprenorphine 300 mg/1.5 mL mg subcut 02/23/22 02/23/22 Unknown History solution,exten.rel.subcutaneous syringe (Sublocade) Physical Exam Vital Signs and Narrative: Vital Signs: Last Vital Signs Temp 98.1 F 05/09/25 18:40 Pulse 79 05/09/25 18:40 Resp 16 05/09/25 18:40 BP 119/69 05/09/25 18:40 Pulse Ox 97 05/09/25 18:40 O2 Del Method Room Air 05/09/25 18:40 BMI result Body Mass Index 27.5 General: AOx3, no acute distress Resp: CTA bilaterally CVS: S1, S2, RRR GI: +BS, NT, no distention Skin: Warm, dry Neuro: Cranial nerves II-XII grossly intact bilaterally. Motor grossly intact bilaterally Extremities: No LE edema. R thumb wrapped with tape, no increased warmth or significant erythema. no purulent drainage. evidence of puncture wound. see photos. Psych: Appropriate affect Const: General: No confusion Orientation/consciousness: No confusion Neuro: General: No confusion Results Labs 05/09/25 19:04 05/09/25 19:04 Labs: Laboratory Results - last 24 hr 05/09/25 19:04 MCV 91.0 MCH 31.6 MCHC 34.7 RDW 13.7 Plt Count 174 MPV 8.6 L Immature Gran % (Auto) 0.2 Neut % (Auto) 64.7 Lymph % (Auto) 24.4 [place] % (Auto) 6.8 Eos % (Auto) 3.5 Baso % (Auto) 0.4 Lymph # (Auto) 1.3 [place] # (Auto) 0.4 Eos # (Auto) 0.2 Baso # (Auto) 0.0 Abs Immat Gran (auto) 0.01 Absolute Neuts (auto) 3.5 Absolute Nucleated RBC 0.000 Nucleated RBC % (auto) 0.0 ESR 10 Anion Gap 13 Estim Creat Clear Calc 95.1 Estimated GFR > 60 Random Glucose 138 H Lactic Acid 1.5 Calcium 8.8 Magnesium 1.9 Total Bilirubin 0.7 AST 27 ALT 27 Alkaline Phosphatase 72 C-Reactive Protein 0.23 Total Protein 6.7 Albumin 4.1 Assessment and Plan (1) Osteomyelitis: Status: Acute (2) Normocytic anemia: Status: Acute (3) Tobacco user: Status: Acute Plan Patient is a 54-year-old male with a past medical history significant for opioid use disorder on Sublocade, anxiety, depression, hypertension, history MRSA bacteremia, history of epidural abscess, Tobacco use disorder, multiple recent ED visits due to infection of the right thumb with I&D. osteomyelitis R thumb - no leukocytosis, vitals stable, lactic acid normal, blood cultures x2 pending, no sepsis - right hand x-ray with deformity of distal 1st digit likely postoperative in nature. Apparent erosion of the distal aspect of the 1st distal pharynx may be postoperative in nature. Osteomyelitis is not excluded here. Please correlate clinically. - CT right hand with findings consistent with osteomyelitis involving the tuft of the 1st distal phalanx. There is overlying sub cutaneous edema and small amount of punctate gas possibly representing a location for skin defect. No evidence of abscess. - CRP normal - patient is started on ceftriaxone and vancomycin in ED, switch to Zosyn and vancomycin - ortho was contacted by ED provider who suggested ID consult and IV antibiotics - ortho and ID consult - monitor CBC and BMP Normocytic anemia - hemoglobin 13.2, 13.0 on repeat, normocytic - check iron panel - no need for blood transfusion - monitor CBC Tobacco user - smoking cessation encouraged - declines NRT - RT smoking cessation placed OUD in remission - has outpt tx with sublocade anxiety/depression - continue home meds HTN - continue home meds Med rec pending Full code VTE prophylaxis: Lovenox Patient with osteomyelitis right thumb with multiple failed outpatient treatments, requiring admission for at least 2 midnight stay for IV antibiotics and ID consultation. Quality Stroke Does the patient have a stroke diagnosis?: No VTE Prior VTE?: No VTE Risk Level:: Medical - moderate - high VTE Device Contraindication: Treatment Not Indicated VTE Drug Contraindication: N/A - Med Ordered
--- NOTE | 2025-05-09 21:31 | PHA.PROG ---
Admission Date/Time: May 09, 2025 19:54 Indication: SKIN Weight in k kg Adjusted body weight in Kg: [place] body weight in Kg: Obesity Dosing Indication % IBW: Serum Creatinine - Last 168 Hours 05/09/25 19:04 Creatinine 0.82 Estimated CrCl and GFR - Last 168 Hours 05/09/25 19:04 Estim Creat Clear Calc 95.1 Estimated GFR > 60 Vancomycin Loading Dose: 2000 mg Current Vancomycin Dosing Regimen: 1000 MG Q12H Vancomycin Monitoring using AUC goal of 400 - 600 range with trough as surrogate marker: SWS=[id number] TROUGH=15 Date and Time for next Vancomycin Level to be drawn: 05/11/25 @0700 Pharmacist Comments on Vancomycin Plan: Vancomycin dosing will take advantage of SLID as a clinical decision support tool that uses Bayesian modeling to calculate individual patient's pharmacokinetic parameters and forecast the patient's drug concentration time course with the target goal AUC 24 range of 400 - 600 mg/L/hr.
[2025-05-09 21:48] VITALS: BP 109/68; PULSE 47; RESP 17; TEMP 36.8; O2SAT 97
[2025-05-09 21:49] LABS: Iron 141 mcg/dL (45-160); Percent Iron Saturation 59 % (15-50); Total Iron Binding Capacity 238 mcg/dL (228-428); Unsaturated Iron Binding 97 ug/dL
--- NOTE | 2025-05-09 21:53 | PM.EVENT ---
Event Note Date of Service: 05/09/25 Event Note: alerted by pt's nurse that pt is in sinus bradycardia. EKG with rate of 47. pt is asx. added urine drug screen and tele for now. continue to monitor. Time Spent With Patient Time: Total time managing care of this patient today ____ minutes.
[2025-05-09 22:37] LABS: Creatinine Clr Calc Pharmacy 96.3; Estimated Glomerular Filt Rate > 60
[2025-05-10] MEDS: 0.9 % Sodium Chloride Flush 3 ML SYRINGE IVFLUSH ×3 (00:37→15:30)
[2025-05-10 03:21] VITALS: BP 97/62; PULSE 48; RESP 20; TEMP 36.7; O2SAT 96
[2025-05-10 07:45] LABS: Anion Gap 13 (12-20); Blood Urea Nitrogen 13 mg/dL (9-16); Calcium 8.4 mg/dL (8.4-10.2); Carbon Dioxide 22 mmol/L (22-29); Chloride 109 mmol/L (96-108); Creatinine Clr Calc Pharmacy 89.7; Estimated Glomerular Filt Rate > 60; Potassium 4.4 mmol/L (3.3-5.1); Sodium 140 mmol/L (135-145)
[2025-05-10 07:54] VITALS: BP 103/62; PULSE 51; RESP 16; TEMP 36.9; O2SAT 97
[2025-05-10 07:56] LABS: Hematocrit 38.9 % (42.0-52.0); Hemoglobin 13.5 g/dl (14.0-18.0); Imm Gran Abs Auto 0.01 X10*3/uL (0.00-0.03); Imm Gran Pct Auto 0.2 % (0.0-0.4); Lymphocytes Absolute Auto 0.9 X10*3/uL (1.2-4.9); MANUAL DIFF FLAG SCAN; Mean Corpuscular HGB Conc 34.7 g/dl (31.0-36.0); Mean Corpuscular Hemoglobin 32.1 pg (27.0-33.0); Mean Corpuscular Volume 92.4 fL (80.0-98.0); NRBC Abs Auto 0.000 X10*3/uL (0.0-0.012); NRBC Pct Auto 0.0 /100WBC (0.0-0.2); PLT CLUMP 1; Red Blood Count 4.21 X10*6/uL (4.60-5.80); SCAN SMEAR FLAG 1
[2025-05-10 08:23] LABS: Platelet Count 169 X10*3/uL (160-400); White Blood Count 4.2 X10*3/uL (4.8-10.8)
[2025-05-10] MEDS: oxyCODONE HCl Immed Release 5 MG TABLET PO ×3 (08:46→22:22)
[2025-05-10 09:11] VITALS: BP 120/71; PULSE 47; RESP 18; TEMP 36.2; O2SAT 94
[2025-05-10 09:16] VITALS: BMI 30.1
--- NOTE | 2025-05-10 09:17 | P.CONOP_ITS ---
History of Present Illness HPI Consult date: 05/10/25 Chief complaint: Right Distal Phalanx ostemyelitis Narrative: Mr. Mari is a 54-year-old male with a past medical history significant for opioid use disorder on Sublocade, anxiety, depression, hypertension, history MRSA bacteremia, history of epidural abscess, Tobacco use disorder, multiple recent ED visits due to infection of the right thumb with I&D. The patient was seen at [facility] ED on 03/21 and treated with I+D, PO abx, and imaging negative for osteo or foreign body. 2 weeks later he was seen at [facility] again for I+D and PO abx, completed antibiotics as prescribed, however is still experiencing right thumb pain. He reports that he has been using a scapal at home to try to retrieve a foreign body. Two days ago he reports that he had worsening with throbbing and pulsating sensation. The pain improves when he constricts this thumb, he is currently taping his thumb to help with his pain. He reports a clear drainage when he tries to express fluid from the puncture on the distal phalanx. 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 Review of Systems 2 Review of Systems: Yes all other systems are reviewed and are negative PMFSH Past Medical History Medical History Tobacco user (12/31/18) Chronic alcoholism in remission (03/21/18) Back pain History of ETOH abuse Chronic hepatitis C Hernia Opioid use disorder Intravenous drug abuse in remission Anxiety Depression HTN (hypertension) Family History Family History Mother Lung cancer Surgical History Surgical History History of amputation of finger Hx of surgical amputation of finger Social History Social History Household Members: Family Housing: House Alcohol intake: former 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 Patient Tobacco Use Status: Current everyday Tobacco user Tobacco use type: Cigarette Cigarette Packs Per Day: 1.0 Cigarettes Per Day: 20.0 Substance Use Type: Marijuana Advance Directives Date on File: 08/04/21 service: No Current occupational status: unemployed Meds Allergies Allergy/AdvReac Type Severity Reaction Status Date / Time No Known Allergies (No Known Allergy Verified 05/09/25 17:49 Allergies*) Active Medications: Current Medications Acetaminophen (Acetaminophen 325 Mg Tablet) 975 mg PO Q6H PRN PRN Reason: Pain, Mild 1-3,fever,headache Last Admin: 05/10/25 08:46 Dose: 975 mg Calcium Carbonate (Calcium Carbonate 750 Mg Tab.Chew) 750 mg PO Q4H PRN PRN Reason: Heartburn Enoxaparin Sodium (Enoxaparin Sodium 40 Mg/0.4 Ml Syringe) 40 mg SUBCUT Q24H [facility] Last Admin: 05/09/25 22:21 Dose: 40 mg Piperacillin Sod/Tazobactam (Sod 3.375 gm/ Sodium Chloride) 50 mls @ 100 mls/hr IV Q6H [facility] Last Infusion: 05/10/25 05:44 Dose: Infused Vancomycin HCl 1,000 mg/ (Sodium Chloride) 270 mls @ 270 mls/hr IV Q12H [facility] Last Infusion: 05/10/25 09:14 Dose: Infused Magnesium Hydroxide (Milk Of Magnesia 30 Ml Oral.Susp) 30 ml PO DAILY PRN PRN Reason: Constipation Melatonin (Melatonin 3 Mg Tablet) 6 mg PO BEDTIME PRN PRN Reason: Insomnia Oxycodone HCl (Oxycodone Hcl Immed Release 5 Mg Tablet) 5 mg PO Q6H PRN PRN Reason: Pain, Severe (Pain Scale 7-10) Last Admin: 05/10/25 08:46 Dose: 5 mg Pharmacy Consult (Consult Rx Vancomycin Dosing) 1 each MISCELLANE DAILY PRN PRN Reason: Consult order Sodium Chloride (0.9 % Sodium Chloride Flush 3 Ml Syringe) 3 ml IVFLUSH QSHIFT [facility] Last Admin: 05/10/25 07:28 Dose: 3 ml Tramadol HCl (Tramadol Hcl 50 Mg Tablet) 50 mg PO Q6H PRN PRN Reason: Pain, Moderate(Pain Scale 4-6) Home Medications ?Medication ?Instructions ?Recorded ?Confirmed ?Last Taken ?Type buprenorphine 300 mg/1.5 mL mg subcut 02/23/22 2 Unknown History solution,exten.rel.subcutaneous syringe (Sublocade) Physical Exam 2 Vital Signs: Vital Signs: Last Vital Signs Temp 97.2 F 05/10/25 09:11 Pulse 47 L 05/10/25 09:11 Resp 18 05/10/25 09:11 BP 120/71 05/10/25 09:11 Pulse Ox 94 05/10/25 09:11 O2 Del Method Room Air 05/10/25 09:11 BMI result Body Mass Index 27.5 Extrem: Other: Small puncture wound to the tip of the right thumb. There is calloused tissue at the tip of the thumb distal to the nail. Surrounding erythema and edema on the dorsal and palmar aspect of the thumb extended to the IP joint. Able to flex and extend at the IP and MCM. Tenderness to palpation distal fro the CMC. No pain with axial loading. Sensation is intact. Capillary refill is brisk. Results Labs 05/10/25 06:52 05/10/25 06:52 Labs: Abnormal lab results 05/09/25 05/10/25 Range/Units 19:04 06:52 WBC 4.2 L (4.8-10.8) X10*3/uL RBC 4.12 L 4.21 L (4.60-5.80) X10*6/uL Hgb 13.0 L 13.5 L (14.0-18.0) g/dl Hct 37.5 L 38.9 L (42.0-52.0) % MPV 8.6 L 9.3 L (9.4-12.4) fL Eos % (Auto) 6.1 H (0-4) % Lymph # (Auto) 0.9 L (1.2-4.9) X10*3/uL Chloride 109 H (96-108) mmol/L Random Glucose 138 H (60-115) mg/dL % Saturation 59 H (15-50) % H & H 05/09/25 05/10/25 Range/Units 19:04 06:52 Hgb 13.0 L 13.5 L (14.0-18.0) g/dl Hct 37.5 L 38.9 L (42.0-52.0) % All other labs normal. Assessment and Plan (1) Osteomyelitis: Status: Acute Plan Medicine to continue IV abx Recommend ID consult Pain management as appropriate Encourage gentle ROM NPO after midnight Procedures Date of Service Date of Service: 05/10/25
--- NOTE | 2025-05-10 10:58 | P.PNIM_ITS ---
Subjective Subjective Date of Service: 05/10/25 Interval History: f/u on osteomylitis of the right thumb c/o profound pain Physical Exam 2 Vital Signs: Vital Signs: Last Vital Signs Temp 97.2 F 05/10/25 09:11 Pulse 47 L 05/10/25 09:11 Resp 18 05/10/25 09:11 BP 120/71 05/10/25 09:11 Pulse Ox 94 05/10/25 09:11 O2 Del Method Room Air 05/10/25 09:11 BMI result Body Mass Index 30.1 Const: Other: General: AO X 3, no acute distress Resp: CTA bilateral CVS: S1,S2,RRR GI: +BS, NT, no distention Skin: No rash Neuro: motor grossly intact Psych: appropriate affect Extrem: Other: Small puncture wound to the tip of the right thumb. There is calloused tissue at the tip of the thumb distal to the nail. Surrounding erythema and edema on the dorsal and palmar aspect of the thumb extended to the IP joint. Able to flex and extend at the IP and MCM. Tenderness to palpation distal fro the CMC. No pain with axial loading. Sensation is intact. Capillary refill is brisk. Objective Data Active Medications Acetaminophen (Acetaminophen 325 Mg Tablet) 975 mg PO Q6H PRN PRN Reason: Pain, Mild 1-3,fever,headache Last Admin: 05/10/25 08:46 Dose: 975 mg Documented By: IMAN Calcium Carbonate (Calcium Carbonate 750 Mg Tab.Chew) 750 mg PO Q4H PRN PRN Reason: Heartburn Enoxaparin Sodium (Enoxaparin Sodium 40 Mg/0.4 Ml Syringe) 40 mg SUBCUT Q24H [facility] Last Admin: 05/09/25 22:21 Dose: 40 mg Documented By: MAGED Piperacillin Sod/Tazobactam (Sod 3.375 gm/ Sodium Chloride) 50 mls @ 100 mls/hr IV Q6H [facility] Last Infusion: 05/10/25 10:27 Dose: Infused Documented By: RAFAELA Vancomycin HCl 1,000 mg/ (Sodium Chloride) 270 mls @ 270 mls/hr IV Q12H [facility] Last Infusion: 05/10/25 09:14 Dose: Infused Documented By: RAFAELA Magnesium Hydroxide (Milk Of Magnesia 30 Ml Oral.Susp) 30 ml PO DAILY PRN PRN Reason: Constipation Melatonin (Melatonin 3 Mg Tablet) 6 mg PO BEDTIME PRN PRN Reason: Insomnia Oxycodone HCl (Oxycodone Hcl Immed Release 5 Mg Tablet) 5 mg PO Q6H PRN PRN Reason: Pain, Severe (Pain Scale 7-10) Last Admin: 05/10/25 08:46 Dose: 5 mg Documented By: IMAN Pharmacy Consult (Consult Rx Vancomycin Dosing) 1 each MISCELLANE DAILY PRN PRN Reason: Consult order Sodium Chloride (0.9 % Sodium Chloride Flush 3 Ml Syringe) 3 ml IVFLUSH QSHIFT [facility] Last Admin: 05/10/25 07:28 Dose: 3 ml Documented By: IMAN Tramadol HCl (Tramadol Hcl 50 Mg Tablet) 50 mg PO Q6H PRN PRN Reason: Pain, Moderate(Pain Scale 4-6) Labs 05/10/25 06:52 05/10/25 06:52 Labs: Laboratory Results - last 24 hr 05/09/25 05/09/25 05/10/25 19:04 22:17 06:52 MCV 91.0 92.4 MCH 31.6 32.1 MCHC 34.7 34.7 RDW 13.7 13.9 Plt Count 174 169 MPV 8.6 L 9.3 L Immature Gran % (Auto) 0.2 0.2 Neut % (Auto) 64.7 62.3 Lymph % (Auto) 24.4 21.5 [place] % (Auto) 6.8 9.2 Eos % (Auto) 3.5 6.1 H Baso % (Auto) 0.4 0.7 Lymph # (Auto) 1.3 0.9 L [place] # (Auto) 0.4 0.4 Eos # (Auto) 0.2 0.3 Baso # (Auto) 0.0 0.0 Abs Immat Gran (auto) 0.01 0.01 Absolute Neuts (auto) 3.5 2.6 Absolute Nucleated RBC 0.000 0.000 Nucleated RBC % (auto) 0.0 0.0 Smear Tech's Comments VERIFIED ESR 10 Anion Gap 13 13 Estim Creat Clear Calc 95.1 96.3 89.7 Estimated GFR > 60 > 60 > 60 Random Glucose 138 H 102 Lactic Acid 1.5 Calcium 8.8 8.4 Magnesium 1.9 Iron 141 TIBC 238 % Saturation 59 H Unsat Iron Binding 97 Total Bilirubin 0.7 AST 27 ALT 27 Alkaline Phosphatase 72 C-Reactive Protein 0.23 Total Protein 6.7 Albumin 4.1 Ethyl Alcohol < 10 Assessment and Plan (1) Osteomyelitis of right hand: Status: Acute Plan Patient is a 54-year-old male with a past medical history significant for opioid use disorder on Sublocade, anxiety, depression, hypertension, history MRSA bacteremia, history of epidural abscess, Tobacco use disorder, multiple recent ED visits due to infection of the right thumb with osteomylitis (OM) OM of R thumb, CT finding c/w with osteomylitis Continue IV Abx (Vanco/zosyn)and get ID consult, will 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 Quality Stroke Does the patient have a stroke diagnosis?: No VTE Prior VTE?: No VTE Risk Level:: Medical - moderate - high VTE Device Contraindication: Treatment Not Indicated VTE Drug Contraindication: N/A - Med Ordered
--- NOTE | 2025-05-10 12:33 | PHA.MEDREC ---
Pharmacy Consult ? Medication Reconciliation Pharmacy has completed the medication reconciliation.Patient states he is not an any medications at home, he was very sleepy. There are also no pharmacy claims history
[2025-05-10 15:49] VITALS: BP 114/59; PULSE 60; RESP 16; TEMP 36.6; O2SAT 93
--- NOTE | 2025-05-10 16:30 | MHC.CM.PN ---
CM ATTEMPTED TO MEET WITH PT MULTIPLE TIMES, PT SLEEPING PER EHR, PT IS INDEPENDENT AND WORKS HCP ON FILE PCP: ALEJANDRA HOLLIDAY TBD: HOME ? SERVICES
[2025-05-10 20:00] VITALS: BP 124/84; PULSE 88; RESP 18; TEMP 36.6; O2SAT 93
[2025-05-10 21:26] LABS: Cannabinoid Screen Urine POSITIVE (Not Detect)
[2025-05-11] VITALS (11 sets, daily range): BP systolic 86–126; BP diastolic 51–77; PULSE 44–58; RESP 13–18; TEMP 36–36.8; O2SAT 93–100
--- NOTE | 2025-05-11 03:14 | PC.NURSE ---
delayed entry: At approximately 1939, this RN went to perform initial assessment on patient. Room 360 noted to be empty with tele monitor unattached and sitting on bed. Bathroom searched, floor staff notified. 1945: Security and nursing cleaning staff supervisor notified that patient was missing. Sweep of unit performed with no success. At 1948, Med/Tele notified this RN that patient was found on 4th floor and was very upset. The RN went to collect patient from 4th floor. Upon arrival, patient noted to be sitting in the hallway, tearful, nervous about upcoming procedure. He reports that he was going to try and leave the hospital, however his did not agree to pick him up. Once back in room, patient given evening medication without issue, assisted with evening ADL's. Juice Scaleman and security notified that patient was found. Patient has been calm and cooperative as of this writing.
[2025-05-11 07:12] LABS: MANUAL DIFF FLAG NO
[2025-05-11 07:22] LABS: Hematocrit 38.3 % (42.0-52.0); Hemoglobin 13.3 g/dl (14.0-18.0); Imm Gran Abs Auto 0.01 X10*3/uL (0.00-0.03); Imm Gran Pct Auto 0.2 % (0.0-0.4); Lymphocytes Absolute Auto 0.9 X10*3/uL (1.2-4.9); Mean Corpuscular HGB Conc 34.7 g/dl (31.0-36.0); Mean Corpuscular Hemoglobin 32.1 pg (27.0-33.0); Mean Corpuscular Volume 92.5 fL (80.0-98.0); NRBC Abs Auto 0.000 X10*3/uL (0.0-0.012); NRBC Pct Auto 0.0 /100WBC (0.0-0.2); Platelet Count 168 X10*3/uL (160-400); Red Blood Count 4.14 X10*6/uL (4.60-5.80); White Blood Count 4.3 X10*3/uL (4.8-10.8)
[2025-05-11 07:55] LABS: Anion Gap 13 (12-20); Blood Urea Nitrogen 10 mg/dL (9-16); Calcium 8.5 mg/dL (8.4-10.2); Carbon Dioxide 26 mmol/L (22-29); Chloride 107 mmol/L (96-108); Creatinine Clr Calc Pharmacy 88.3; Estimated Glomerular Filt Rate > 60; Potassium 4.0 mmol/L (3.3-5.1); Sodium 142 mmol/L (135-145)
--- NOTE | 2025-05-11 08:03 | P.CONAN_ITS ---
HPI - Anesthesia Eval Consult details Narrative: 54 yr old male for right thumb debridement H/O OUD/IVDU, on Sublocade Chronic Hep C: no recent LFTs on record; INR 1.3 in 2020 PMFSH Active Problems Active Problems: All Active Problems Osteomyelitis of right hand (Acute) Normocytic anemia (Acute) Tobacco user (Acute 12/31/18) Chronic alcoholism in remission (Acute 03/21/18) Osteomyelitis (Acute) Trigger point of left shoulder region (Acute) Cervicalgia (Acute) Right inguinal hernia (Acute) Staphylococcus aureus bacteremia (Acute) Abscess in epidural space of lumbar spine (Acute) Past Medical History Medical History Tobacco user (12/31/18) Chronic alcoholism in remission (03/21/18) Back pain History of ETOH abuse Chronic hepatitis C Hernia Opioid use disorder Intravenous drug abuse in remission Anxiety Depression HTN (hypertension) Functional capacity: independent ambulation Family History Family History Mother Lung cancer Family history of problems with anesthesia: No Surgical History Surgical History History of amputation of finger Hx of surgical amputation of finger History of Problems with Anesthesia: No Social History Social History Household Members: Significant Other Housing: Apartment Are you a primary workforce investment act career manager to a significant other at home: No Do you presently have visiting nurse or other home services: No Alcohol intake: former 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 Patient Tobacco Use Status: Current everyday Tobacco user Tobacco use type: Cigarette Cigarette Packs Per Day: 1 Cigarettes Per Day: 20.0 e-Cigarette/Vaping Use: Never Used Second Hand Smoke Exposure: No Substance Use Type: Marijuana Advance Directives Date on File: 08/04/21 service: No Current occupational status: unemployed Meds Allergies Allergy/AdvReac Type Severity Reaction Status Date / Time No Known Allergies (No Known Allergy Verified 05/09/25 17:49 Allergies*) Active Medications: Current Medications Acetaminophen (Acetaminophen 325 Mg Tablet) 975 mg PO Q6H PRN PRN Reason: Pain, Mild 1-3,fever,headache Last Admin: 05/10/25 08:46 Dose: 975 mg Calcium Carbonate (Calcium Carbonate 750 Mg Tab.Chew) 750 mg PO Q4H PRN PRN Reason: Heartburn Enoxaparin Sodium (Enoxaparin Sodium 40 Mg/0.4 Ml Syringe) 40 mg SUBCUT Q24H [facility] Last Admin: 05/10/25 22:26 Dose: 40 mg Piperacillin Sod/Tazobactam (Sod 3.375 gm/ Sodium Chloride) 50 mls @ 100 mls/hr IV Q6H [facility] Last Infusion: 05/11/25 04:29 Dose: Infused Vancomycin HCl 1,000 mg/ (Sodium Chloride) 270 mls @ 270 mls/hr IV Q12H [facility] Last Infusion: 05/10/25 21:38 Dose: Infused Magnesium Hydroxide (Milk Of Magnesia 30 Ml Oral.Susp) 30 ml PO DAILY PRN PRN Reason: Constipation Melatonin (Melatonin 3 Mg Tablet) 6 mg PO BEDTIME PRN PRN Reason: Insomnia Oxycodone HCl (Oxycodone Hcl Immed Release 5 Mg Tablet) 5 mg PO Q6H PRN PRN Reason: Pain, Severe (Pain Scale 7-10) Last Admin: 05/10/25 22:22 Dose: 5 mg Pharmacy Consult (Consult Rx Vancomycin Dosing) 1 each MISCELLANE DAILY PRN PRN Reason: Consult order Sodium Chloride (0.9 % Sodium Chloride Flush 3 Ml Syringe) [facility] Last Admin: 05/10/25 23:54 Dose: Not Given Tramadol HCl (Tramadol Hcl 50 Mg Tablet) 50 mg PO Q6H PRN PRN Reason: Pain, Moderate(Pain Scale 4-6) Last Admin: 05/11/25 04:04 Dose: 50 mg Home Medications ?Medication ?Instructions ?Recorded ?Confirmed ?Last Taken ?Type No Known Home Meds 05/10/25 05/10/25 Un known History Exam Height,Weight and Vital Signs: Height 5 ft 5 in Weight 82 kg Last Vital Signs Temp 97.7 F 05/11/25 07:57 Pulse 53 05/11/25 07:57 Resp 14 05/11/25 07:57 BP 120/55 L 05/11/25 07:57 Pulse Ox 95 05/11/25 07:57 O2 Del Method Room Air 05/11/25 07:57 Pertinent Lab Results Pertinent Lab Results: Laboratory Tests 05/09/25 05/09/25 05/10/25 19:04 22:17 06:52 WBC 5.4 4.2 L RBC 4.12 L 4.21 L Hgb 13.0 L 13.5 L Hct 37.5 L 38.9 L MCV 91.0 92.4 MCH 31.6 32.1 MCHC 34.7 34.7 RDW 13.7 13.9 Plt Count 174 169 MPV 8.6 L 9.3 L Immature Gran % (Auto) 0.2 0.2 Neut % (Auto) 64.7 62.3 Lymph % (Auto) 24.4 21.5 [place] % (Auto) 6.8 9.2 Eos % (Auto) 3.5 6.1 H Baso % (Auto) 0.4 0.7 Lymph # (Auto) 1.3 0.9 L [place] # (Auto) 0.4 0.4 Eos # (Auto) 0.2 0.3 Baso # (Auto) 0.0 0.0 Abs Immat Gran (auto) 0.01 0.01 Absolute Neuts (auto) 3.5 2.6 Absolute Nucleated RBC 0.000 0.000 Nucleated RBC % (auto) 0.0 0.0 Smear Tech's Comments VERIFIED ESR 10 Sodium 138 140 Potassium 4.3 4.4 Chloride 105 109 H Carbon Dioxide 24 22 Anion Gap 13 13 BUN 13 13 Creatinine 0.82 0.81 0.87 Estim Creat Clear Calc 95.1 96.3 89.7 Estimated GFR > 60 > 60 > 60 Random Glucose 138 H 102 Lactic Acid 1.5 Calcium 8.8 8.4 Magnesium 1.9 Iron 141 TIBC 238 % Saturation 59 H Unsat Iron Binding 97 Total Bilirubin 0.7 AST 27 ALT 27 Alkaline Phosphatase 72 C-Reactive Protein 0.23 Total Protein 6.7 Albumin 4.1 Random Vancomycin Urine Opiates Screen Ur Buprenorphine Scrn Ur Oxycodone Screen Urine Methadone Screen Urine Fentanyl Screen Ur Barbiturates Screen Ur Phencyclidine Scrn Ur Amphetamines Screen U Benzodiazepines Scrn Urine Cocaine Screen U Marijuana (THC) Screen Ethyl Alcohol < 10 05/10/25 05/11/25 20:03 06:47 WBC 4.3 L RBC 4.14 L Hgb 13.3 L Hct 38.3 L MCV 92.5 MCH 32.1 MCHC 34.7 RDW 13.7 Plt Count 168 MPV 8.9 L Immature Gran % (Auto) 0.2 Neut % (Auto) 63.1 Lymph % (Auto) 21.6 [place] % (Auto) 9.5 Eos % (Auto) 5.1 H Baso % (Auto) 0.5 Lymph # (Auto) 0.9 L [place] # (Auto) 0.4 Eos # (Auto) 0.2 Baso # (Auto) 0.0 Abs Immat Gran (auto) 0.01 Absolute Neuts (auto) 2.7 Absolute Nucleated RBC 0.000 Nucleated RBC % (auto) 0.0 Smear Tech's Comments ESR Sodium 142 Potassium 4.0 Chloride 107 Carbon Dioxide 26 Anion Gap 13 BUN 10 Creatinine 0.92 Estim Creat Clear Calc 88.3 Estimated GFR > 60 Random Glucose 102 Lactic Acid Calcium 8.5 Magnesium Iron TIBC % Saturation Unsat Iron Binding Total Bilirubin AST ALT Alkaline Phosphatase C-Reactive Protein Total Protein Albumin Random Vancomycin 13.8 L Urine Opiates Screen Not Detected Ur Buprenorphine Scrn Positive H Ur Oxycodone Screen Positive H Urine Methadone Screen Not Detected Urine Fentanyl Screen Not Detected Ur Barbiturates Screen Not Detected Ur Phencyclidine Scrn Not Detected Ur Amphetamines Screen Not Detected U Benzodiazepines Scrn Not Detected Urine Cocaine Screen Not Detected U Marijuana (THC) Screen POSITIVE H Ethyl Alcohol Narrative Narrative: EKG 05/09/25 Vent. Rate : 47 BPM Atrial Rate : 47 BPM P-R Int : 140 ms QRS Dur : 98 ms QT Int : 462 ms P-R-T Axes : 19 44 36 degrees QTcB Int : 408 ms Sinus bradycardia Otherwise normal ECG When compared with ECG of 03-Aug-2023 02:49, Vent. rate has decreased by 46 bpm Assessment and Plan Final Anesthetic Review Family History of Problems with Anesthesia: No History of Problems with Anesthesia: No
[2025-05-11] MEDS: Lactated Ringers 1,000 ML 80 ML IVCONT (08:48)
--- NOTE | 2025-05-11 09:03 | MHC.SHP ---
Pre-Procedural Eval Section A - 24 Hr Update-Section A only Date of Service: 05/11/25 The patient is an INPATIENT: Yes Changes since office visit: No Cold of Flu in the past 2 weeks, No New Medical Problems, No Changes in Medication and No Patient answered all questions The patient has been examined within 24 hours of the surgical procedure. The History & Physical has been completed within 30 days and I have reviewed it.: Yes Section B - Complete if H&P > 30 days Chief Complaint: Right Distal Phalanx ostemyelitis Allergies: Allergies Allergy/AdvReac Type Severity Reaction Status Date / Time No Known Allergies (No Known Allergy Verified 05/09/25 17:49 Allergies*) Exam Exam Comment: Patient was seen and evaluated by me in preop hold. He has a chronic wound at the tip of the right thumb just beneath the nail in the hyponychial area He has no tenderness in the flexor tendon sheath or in the pad of the thumb He has some good active motion of the thumb Cap refill is brisk Radiographs and CT scan show evidence of osteomyelitis in the tip of the right thumb. Plan Diagnosis/Plan: Unchanged I have reviewed the history and physical and performed a pertinent physical examination on my patient. No changes have occurred unless specified. Assessment and plan: 1. . Right thumb distal phalanx osteomyelitis I educated the patient about this condition we discussed operative and non operative treatment options I am recommending surgery and he agrees The risks and benefits of operative treatment were discussed with the patient and the patient wishes to proceed with surgery. These risks include, but are not limited to risk of damage to blood vessels, nerves, tendons, infection, recurrence, incomplete relief of preoperative symptoms, persistent pain, possible need for further surgery and the risks associated with regional blocks and anesthesia. The plan is to take the patient to the operating room today for the following procedures: 1. Right thumb I and D 2. [ ] All of the preoperative paperwork including the consent was filled out today. All the patient's questions were answered. Time Spent With Patient Time: Total time managing care of this patient today ____ minutes.
--- NOTE | 2025-05-11 09:05 | W.PM.OPN ---
Operative Note Operative Note Date of Service: 05/11/25 Narrative: Operative Note Narrative: Preop diagnosis: 1. Right thumb distal phalanx osteomyelitis Postop diagnosis: Same Procedure: 1. Right thumb I and D of distal aspect of bone of the distal phalanx osteomyelitis Surgeon: Marlene Harrington MD Therapy Director: None Anesthesia: General Anesthesia Findings: No gross purulence. An approximately 5-6 mm diameter concavity of bone loss at the tip of the right thumb distal phalanx secondary to osteomyelitis, along with a mostly healed chronic wound at the tip of the thumb. Implants: None Tourniquet time: 10 minutes EBL: 5.0 ml Specimen: Cultures taken from right thumb distal phalanx bone, and we asked for sensitivities Drains: None Complications: None Disposition: Brought to the recovery room in stable condition Plan: Admit back to floor for IV antibiotics Check cultures and adjust antibiotics accordingly He will need an Infectious Disease consult for medical management of his osteomyelitis First dressing change tomorrow with ortho, daily nursing dressing changes after that will be sufficient. Indications: The patient is a 54 year old man with a chronic wound on the tip of his right thumb and radiographs consistent with chronic osteomyelitis of the distal phalanx . The risks and benefits of operative treatment, including but not limited to risk of damage to blood vessels, nerves, tendons, infection, recurrence, persistent pain or numbness, incomplete resolution of preoperative symptoms, or need for further surgery were discussed with the patient and they wished to proceed with surgery. Procedure: Once consent was obtained patient was brought back to the operating suite and placed in the operating table in a supine position. Anesthesia was administered by the anesthesia team. A tourniquet was applied to the proximal aspect of the right upper extremity and the limb was prepped and draped in a standard surgical fashion. The limb was elevated exsanguinated with Esmarch bandage and the tourniquet inflated to 250 mm of mercury for a total tourniquet time of 10 minutes. I performed a digital block using some 0.5% plain Marcaine for postop pain control. I then elevated the distal aspect of the nail plate from the underlying nail bed using a [place] elevator. I used some small straight scissors to then cut the distal half of the nail plate and removed it to better expose the tissue at the tip of the thumb. I then made a transverse incision at the tip of the thumb between the glabrous skin in the scar tissue from the chronic wound at the tip of the thumb. The incision was made through the skin and down to bone. I then used tenotomy scissors to dissect down to the tip of the distal phalanx. I did not see any gross purulence. There was some fibrinous tissue and scar tissue at the tip of the thumb that I removed using a small rongeur. I also removed what looked like the remnants of the small sinus from the skin at the tip of the thumb using a 15. Blade. I then debrided the tip of the distal phalanx using a small curette and also a rongeur. This bone at the tip of the thumb was cultured, and I asked for sensitivities. This point the wound was copiously irrigated with normal saline. The tourniquet was deflated and hemostasis obtained with a brief period of local pressure The wound was copiously irrigated with normal saline. The skin edges were reapproximated with 5-0 nylon suture and a sterile dressing was applied. The patient appears to have tolerated the procedure well and with no complications. All digits were well vascularized conclusion of the case.
--- NOTE | 2025-05-11 09:17 | P.CONAN_ITS ---
[facility] Active Problems Active Problems: All Active Problems (Updated 05/10/25 @ 11:06 by Jasen Yusuf MD) Osteomyelitis of right hand (Acute) Normocytic anemia (Acute) Tobacco user (Acute 12/31/18) Chronic alcoholism in remission (Acute 03/21/18) Osteomyelitis (Acute) Trigger point of left shoulder region (Acute) Cervicalgia (Acute) Right inguinal hernia (Acute) Staphylococcus aureus bacteremia (Acute) Abscess in epidural space of lumbar spine (Acute) Past Medical History Medical History Tobacco user (12/31/18) Chronic alcoholism in remission (03/21/18) Back pain History of ETOH abuse Chronic hepatitis C Hernia Opioid use disorder Intravenous drug abuse in remission Anxiety Depression HTN (hypertension) Functional capacity: independent ambulation Family History Family History Mother Lung cancer Family history of problems with anesthesia: No Surgical History Surgical History History of amputation of finger Hx of surgical amputation of finger History of Problems with Anesthesia: No Social History Social History Household Members: Significant Other Housing: Apartment Are you a primary youth care worker to a significant other at home: No Do you presently have visiting nurse or other home services: No Alcohol intake: former 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 Patient Tobacco Use Status: Current everyday Tobacco user Tobacco use type: Cigarette Cigarette Packs Per Day: 1 Cigarettes Per Day: 20.0 e-Cigarette/Vaping Use: Never Used Second Hand Smoke Exposure: No Substance Use Type: Marijuana Advance Directives Date on File: 08/04/21 service: No Current occupational status: unemployed Meds Allergies Allergy/AdvReac Type Severity Reaction Status Date / Time No Known Allergies (No Known Allergy Verified 05/09/25 17:49 Allergies*) Active Medications: Current Medications Acetaminophen (Acetaminophen 325 Mg Tablet) 975 mg PO Q6H PRN PRN Reason: Pain, Mild 1-3,fever,headache Last Admin: 05/10/25 08:46 Dose: 975 mg Calcium Carbonate (Calcium Carbonate 750 Mg Tab.Chew) 750 mg PO Q4H PRN PRN Reason: Heartburn Enoxaparin Sodium (Enoxaparin Sodium 40 Mg/0.4 Ml Syringe) 40 mg SUBCUT Q24H [facility] Last Admin: 05/10/25 22:26 Dose: 40 mg Piperacillin Sod/Tazobactam (Sod 3.375 gm/ Sodium Chloride) 50 mls @ 100 mls/hr IV Q6H [facility] Last Infusion: 05/11/25 04:29 Dose: Infused Vancomycin HCl 1,000 mg/ (Sodium Chloride) 270 mls @ 270 mls/hr IV Q12H [facility] Last Admin: 05/11/25 08:47 Dose: 270 mls/hr Lactated Ringer's (Lr) 1,000 mls @ 80 mls/hr IVCONT .[id number] [facility] Last Admin: 05/11/25 08:48 Dose: 80 mls/hr Magnesium Hydroxide (Milk Of Magnesia 30 Ml Oral.Susp) 30 ml PO DAILY PRN PRN Reason: Constipation Melatonin (Melatonin 3 Mg Tablet) 6 mg PO BEDTIME PRN PRN Reason: Insomnia Oxycodone HCl (Oxycodone Hcl Immed Release 5 Mg Tablet) 5 mg PO Q6H PRN PRN Reason: Pain, Severe (Pain Scale 7-10) Last Admin: 05/10/25 22:22 Dose: 5 mg Pharmacy Consult (Consult Rx Vancomycin Dosing) 1 each MISCELLANE DAILY PRN PRN Reason: Consult order Sodium Chloride (0.9 % Sodium Chloride Flush 3 Ml Syringe) 3 ml IVFLUSH QSHIFT [facility] Last Admin: 05/11/25 08:47 Dose: Not Given Tramadol HCl (Tramadol Hcl 50 Mg Tablet) 50 mg PO Q6H PRN PRN Reason: Pain, Moderate(Pain Scale 4-6) Last Admin: 05/11/25 04:04 Dose: 50 mg Home Medications ?Medication ?Instructions ?Recorded ?Confirmed ?Last Taken ?Type No Known Home Meds 05/10/25 05/10/25 Un known History Exam Exam Date and Time: 05/11/2025 Height,Weight and Vital Signs: Height 5 ft 5 in Weight 82 kg Last Vital Signs Temp 97.7 F 05/11/25 08:15 Pulse 49 L 05/11/25 08:15 Resp 16 05/11/25 08:15 BP 114/77 08/18/25 08:15 Pulse Ox 93 05/11/25 08:15 O2 Del Method Room Air 05/11/25 08:15 Pertinent Lab Results Pertinent Lab Results: Laboratory Tests 05/09/25 05/09/25 05/10/25 19:04 22:17 06:52 WBC 5.4 4.2 L RBC 4.12 L 4.21 L Hgb 13.0 L 13.5 L Hct 37.5 L 38.9 L MCV 91.0 92.4 MCH 31.6 32.1 MCHC 34.7 34.7 RDW 13.7 13.9 Plt Count 174 169 MPV 8.6 L 9.3 L Immature Gran % (Auto) 0.2 0.2 Neut % (Auto) 64.7 62.3 Lymph % (Auto) 24.4 21.5 [place] % (Auto) 6.8 9.2 Eos % (Auto) 3.5 6.1 H Baso % (Auto) 0.4 0.7 Lymph # (Auto) 1.3 0.9 L [place] # (Auto) 0.4 0.4 Eos # (Auto) 0.2 0.3 Baso # (Auto) 0.0 0.0 Abs Immat Gran (auto) 0.01 0.01 Absolute Neuts (auto) 3.5 2.6 Absolute Nucleated RBC 0.000 0.000 Nucleated RBC % (auto) 0.0 0.0 Smear Tech's Comments VERIFIED ESR 10 Sodium 138 140 Potassium 4.3 4.4 Chloride 105 109 H Carbon Dioxide 24 22 Anion Gap 13 13 BUN 13 13 Creatinine 0.82 0.81 0.87 Estim Creat Clear Calc 95.1 96.3 89.7 Estimated GFR > 60 > 60 > 60 Random Glucose 138 H 102 Lactic Acid 1.5 Calcium 8.8 8.4 Magnesium 1.9 Iron 141 TIBC 238 % Saturation 59 H Unsat Iron Binding 97 Total Bilirubin 0.7 AST 27 ALT 27 Alkaline Phosphatase 72 C-Reactive Protein 0.23 Total Protein 6.7 Albumin 4.1 Random Vancomycin Urine Opiates Screen Ur Buprenorphine Scrn Ur Oxycodone Screen Urine Methadone Screen Urine Fentanyl Screen Ur Barbiturates Screen Ur Phencyclidine Scrn Ur Amphetamines Screen U Benzodiazepines Scrn Urine Cocaine Screen U Marijuana (THC) Screen Ethyl Alcohol < 10 05/10/25 05/11/25 20:03 06:47 WBC 4.3 L RBC 4.14 L Hgb 13.3 L Hct 38.3 L MCV 92.5 MCH 32.1 MCHC 34.7 RDW 13.7 Plt Count 168 MPV 8.9 L Immature Gran % (Auto) 0.2 Neut % (Auto) 63.1 Lymph % (Auto) 21.6 [place] % (Auto) 9.5 Eos % (Auto) 5.1 H Baso % (Auto) 0.5 Lymph # (Auto) 0.9 L [place] # (Auto) 0.4 Eos # (Auto) 0.2 Baso # (Auto) 0.0 Abs Immat Gran (auto) 0.01 Absolute Neuts (auto) 2.7 Absolute Nucleated RBC 0.000 Nucleated RBC % (auto) 0.0 Smear Tech's Comments ESR Sodium 142 Potassium 4.0 Chloride 107 Carbon Dioxide 26 Anion Gap 13 BUN 10 Creatinine 0.92 Estim Creat Clear Calc 88.3 Estimated GFR > 60 Random Glucose 102 Lactic Acid Calcium 8.5 Magnesium Iron TIBC % Saturation Unsat Iron Binding Total Bilirubin AST ALT Alkaline Phosphatase C-Reactive Protein Total Protein Albumin Random Vancomycin 13.8 L Urine Opiates Screen Not Detected Ur Buprenorphine Scrn Positive H Ur Oxycodone Screen Positive H Urine Methadone Screen Not Detected Urine Fentanyl Screen Not Detected Ur Barbiturates Screen Not Detected Ur Phencyclidine Scrn Not Detected Ur Amphetamines Screen Not Detected U Benzodiazepines Scrn Not Detected Urine Cocaine Screen Not Detected U Marijuana (THC) Screen POSITIVE H Ethyl Alcohol Airway Mallampati Class: II Loose/Missing/Broken Teeth: Yes (edentulous) Heart: rrr Lungs: cta Assessment and Plan Final Anesthetic Review Family History of Problems with Anesthesia: No History of Problems with Anesthesia: No NPO: Yes ASA Class: II Final Preanesthetic Review: No Changes in Pt Med Stat, Meds/Allgs Chart Reviewed, Consent Obtained/Reviewed and Anes Risks/Benef Reviewed Patient Risk: Low Procedure Risk: Low Anesthetic Plan Anesthetic Plan: GA Disposition: Standard PACU
--- NOTE | 2025-05-11 11:23 | PC.NURSE ---
Pt transported to room 360. Confirmed Telepack transmitting.
--- NOTE | 2025-05-11 14:53 | MHC.CM.PN ---
per rounds pt may dc tu dc plan remains home with resumption of preadmission services
[2025-05-11] MEDS: Nicotine 21 MG PATCH.TD24 TRANSDERMA (15:03)
--- NOTE | 2025-05-11 15:17 | MHC.CM.PN ---
per rounds pt to have a physical therapy eval for recommendations for disposition pt eval not done at this time
--- NOTE | 2025-05-11 15:24 | W.PM.IDCN ---
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 He has had nonhealing ulcer there at tip right thumb. He has had two courses antibiotics no better. He is admitted and Hand Surgery debridement. He has culture negative fo far. Review of Systems Review of Systems: Yes all other systems are reviewed and are negative PMFSH Past Medical History Medical History Tobacco user (12/31/18) Chronic alcoholism in remission (03/21/18) Back pain History of ETOH abuse Chronic hepatitis C Hernia Opioid use disorder Intravenous drug abuse in remission Anxiety Depression HTN (hypertension) Family History Family History Mother Lung cancer Family history: reviewed and not pertinent Surgical History Surgical History History of amputation of finger Hx of surgical amputation of finger Social History Social History Household Members: Significant Other Housing: Apartment Are you a primary memory care program resident to a significant other at home: No Do you presently have visiting nurse or other home services: No Alcohol intake: former 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 Patient Tobacco Use Status: Current everyday Tobacco user Tobacco use type: Cigarette Cigarette Packs Per Day: 1 Cigarettes Per Day: 20.0 e-Cigarette/Vaping Use: Never Used Second Hand Smoke Exposure: No Substance Use Type: Marijuana Advance Directives Date on File: 08/04/21 service: No Current occupational status: unemployed Meds Allergies Allergy/AdvReac Type Severity Reaction Status Date / Time No Known Allergies (No Known Allergy Verified 05/09/25 17:49 Allergies*) Active Medications: Current Medications Acetaminophen (Acetaminophen 325 Mg Tablet) 975 mg PO Q6H PRN PRN Reason: Pain, Mild 1-3,fever,headache Last Admin: 05/10/25 08:46 Dose: 975 mg Albuterol/Ipratropium (Albuterol/Iprat 2.5/0.5mg 3 Ml Ampul.Neb) 3 ml INHALE ONCE PRN PRN Reason: Bronchospasm/wheezing Stop: 05/11/25 16:38 Calcium Carbonate (Calcium Carbonate 750 Mg Tab.Chew) 750 mg PO Q4H PRN PRN Reason: Heartburn Enoxaparin Sodium (Enoxaparin Sodium 40 Mg/0.4 Ml Syringe) 40 mg SUBCUT Q24H [facility] Last Admin: 05/10/25 22:26 Dose: 40 mg Piperacillin Sod/Tazobactam (Sod 3.375 gm/ Sodium Chloride) 50 mls @ 100 mls/hr IV Q6H [facility] Last Infusion: 05/11/25 11:23 Dose: Infused Vancomycin HCl 1,000 mg/ (Sodium Chloride) 270 mls @ 270 mls/hr IV Q12H [facility] Last Infusion: 05/11/25 11:23 Dose: Infused Magnesium Hydroxide (Milk Of Magnesia 30 Ml Oral.Susp) 30 ml PO DAILY PRN PRN Reason: Constipation Melatonin (Melatonin 3 Mg Tablet) 6 mg PO BEDTIME PRN PRN Reason: Insomnia Naloxone HCl (Naloxone Hcl 0.4 Mg/Ml Vial) 0.04 mg IVPUSH Q5M PRN PRN Reason: Excessive sedation or RR < 8 Naloxone HCl (Naloxone Hcl 0.4 Mg/Ml Vial) 0.04 mg IVPUSH Q5M PRN PRN Reason: Excessive sedation or RR < 8 Nicotine (Nicotine 21 Mg Patch.Td24) 21 mg TRANSDERMA DAILY [facility] Last Admin: 05/11/25 15:03 Dose: 21 mg Oxycodone HCl (Oxycodone Hcl Immed Release 5 Mg Tablet) 5 mg PO Q6H PRN PRN Reason: Pain, Severe (Pain Scale 7-10) Last Admin: 05/10/25 22:22 Dose: 5 mg Pharmacy Consult (Consult Rx Vancomycin Dosing) 1 each MISCELLANE DAILY PRN PRN Reason: Consult order Sodium Chloride (0.9 % Sodium Chloride Flush 3 Ml Syringe) 3 ml IVFLUSH QSHIFT [facility] Last Admin: 05/11/25 08:47 Dose: Not Given Tramadol HCl (Tramadol Hcl 50 Mg Tablet) 50 mg PO Q6H PRN PRN Reason: Pain, Moderate(Pain Scale 4-6) Last Admin: 05/11/25 04:04 Dose: 50 mg Home Medications ?Medication ?Instructions ?Recorded ?Confirmed ?Last Taken ?Type No Known Home Meds 05/10/25 05/10/25 Unknown History Physical Exam Vital Signs: Vital Signs: Last Vital Signs Temp 98.2 F 05/11/25 15:19 Pulse 58 05/11/25 15:19 Resp 18 05/11/25 15:19 BP 108/70 05/11/25 15:19 Pulse Ox 95 05/11/25 15:19 O2 Del Method Room Air 05/11/25 15:19 O2 Flow Rate 4 05/11/25 11:25 BMI result Body Mass Index 30.1 Const: General: cooperative HEENT: Head: Yes normal to inspection Face and sinus: Yes normal facial exam Mouth: Normal oral and palatal mucosa present Teeth and gingiva: dentition normal Eyes: General: appearance normal, both eyes and all related structures Pupils: Equal, round and reactive pupils present Resp: Effort & Inspection: normal respiratory effort Cardio: Rate: regular rate Rhythm: regular rhythm GI: Palpation (GI): Soft to palpation and nontender : General: Yes no CVA tenderness Back/Spine/Pelvis: Back: no CVA tenderness Skin: General skin exam: no rashes or lesions noted Neuro: General: moves all extremities Cranial nerves: Yes Equal, round and reactive pupils present Extrem: Other: hand wrapped Psych: Appearance: grossly normal Results Labs 05/11/25 06:47 05/11/25 06:47 Labs: Short CBC 05/11/25 Range/Units 06:47 WBC 4.3 L (4.8-10.8) X10*3/uL Hgb 13.3 L (14.0-18.0) g/dl Hct 38.3 L (42.0-52.0) % Plt Count 168 (160-400) X10*3/uL BMP 05/11/25 06:47 Sodium 142 Potassium 4.0 Chloride 107 Carbon Dioxide 26 BUN 10 Creatinine 0.92 Calcium 8.5 Microbiology Microbiology Results: Microbiology 05/11/25 09:08 Thumb Right - Right Thumb Gram Stain - Final 05/09/25 19:04 Blood - Venous Blood Culture - Preliminary No growth after 24 hours. 05/09/25 19:04 Blood - Venous Blood Culture - Preliminary No growth after 24 hours. Assessment and Plan (1) Osteomyelitis of right hand: Status: Acute Plan Await cultures. 6 weeks of Daptomycin daily if cultures negative. Weekly CK and creatinine if on Daptomycin.
[2025-05-11] MEDS: 0.9 % Sodium Chloride Flush 3 ML SYRINGE IVFLUSH ×2 (16:16→20:25)
--- NOTE | 2025-05-11 16:20 | HO.PM.IMPN ---
Subjective Subjective Date of Service: 05/11/25 Interval History: Pt seen this am ,no ON events, returned from I&D by ortho this am, complains of pain in his thumb, dressing intact, resume diet, ID consulted, dc zosyn and cont with Vanco for now until cultures are back Review of Systems -ve except as stated above Physical Exam Vital Signs: Vital Signs: Last Vital Signs Temp 98.2 F 05/11/25 15:19 Pulse 58 05/11/25 15:19 Resp 18 05/11/25 15:19 BP 108/70 05/11/25 15:19 Pulse Ox 95 05/11/25 15:19 O2 Del Method Room Air 05/11/25 15:19 O2 Flow Rate 4 05/11/25 11:25 BMI result Body Mass Index 30.1 A&Ox 3, in NAD abdomen soft not tender heart RRR lungs CTAB, extremities: Rt thumb dressing intact, tender on exam, no active discharge seen Objective Data Active Medications Acetaminophen (Acetaminophen 325 Mg Tablet) 975 mg PO Q6H PRN PRN Reason: Pain, Mild 1-3,fever,headache Last Admin: 05/10/25 08:46 Dose: 975 mg Documented By: IMAN Albuterol/Ipratropium (Albuterol/Iprat 2.5/0.5mg 3 Ml Ampul.Neb) 3 ml INHALE ONCE PRN PRN Reason: Bronchospasm/wheezing Stop: 05/11/25 16:38 Calcium Carbonate (Calcium Carbonate 750 Mg Tab.Chew) 750 mg PO Q4H PRN PRN Reason: Heartburn Enoxaparin Sodium (Enoxaparin Sodium 40 Mg/0.4 Ml Syringe) 40 mg SUBCUT Q24H [facility] Last Admin: 05/10/25 22:26 Dose: 40 mg Documented By: SINDHU Vancomycin HCl 1,000 mg/ (Sodium Chloride) 270 mls @ 270 mls/hr IV Q12H [facility] Last Infusion: 05/11/25 11:23 Dose: Infused Documented By: ROSALBA Magnesium Hydroxide (Milk Of Magnesia 30 Ml Oral.Susp) 30 ml PO DAILY PRN PRN Reason: Constipation Melatonin (Melatonin 3 Mg Tablet) 6 mg PO BEDTIME PRN PRN Reason: Insomnia Naloxone HCl (Naloxone Hcl 0.4 Mg/Ml Vial) 0.04 mg IVPUSH Q5M PRN PRN Reason: Excessive sedation or RR < 8 Naloxone HCl (Naloxone Hcl 0.4 Mg/Ml Vial) 0.04 mg IVPUSH Q5M PRN PRN Reason: Excessive sedation or RR < 8 Nicotine (Nicotine 21 Mg Patch.Td24) 21 mg TRANSDERMA DAILY [facility] Last Admin: 05/11/25 15:03 Dose: 21 mg Documented By: ROSALBA Oxycodone HCl (Oxycodone Hcl Immed Release 5 Mg Tablet) 5 mg PO Q6H PRN PRN Reason: Pain, Severe (Pain Scale 7-10) Last Admin: 05/10/25 22:22 Dose: 5 mg Documented By: SINDHU Pharmacy Consult (Consult Rx Vancomycin Dosing) 1 each MISCELLANE DAILY PRN PRN Reason: Consult order Sodium Chloride (0.9 % Sodium Chloride Flush 3 Ml Syringe) 3 ml IVFLUSH QSHIFT [facility] Last Admin: 05/11/25 08:47 Dose: Not Given Documented By: ROSALBA Non-Admin Reason: Off Unit: Surgery Tramadol HCl (Tramadol Hcl 50 Mg Tablet) 50 mg PO Q6H PRN PRN Reason: Pain, Moderate(Pain Scale 4-6) Last Admin: 05/11/25 04:04 Dose: 50 mg Documented By: SINDHU Labs 05/11/25 06:47 05/11/25 06:47 Labs: Laboratory Results - last 24 hr 05/10/25 05/11/25 20:03 06:47 MCV 92.5 MCH 32.1 MCHC 34.7 RDW 13.7 Plt Count 168 MPV 8.9 L Immature Gran % (Auto) 0.2 Neut % (Auto) 63.1 Lymph % (Auto) 21.6 [place] % (Auto) 9.5 Eos % (Auto) 5.1 H Baso % (Auto) 0.5 Lymph # (Auto) 0.9 L [place] # (Auto) 0.4 Eos # (Auto) 0.2 Baso # (Auto) 0.0 Abs Immat Gran (auto) 0.01 Absolute Neuts (auto) 2.7 Absolute Nucleated RBC 0.000 Nucleated RBC % (auto) 0.0 Anion Gap 13 Estim Creat Clear Calc 88.3 Estimated GFR > 60 Random Glucose 102 Calcium 8.5 Random Vancomycin 13.8 L Urine Opiates Screen Not Detected Ur Buprenorphine Scrn Positive H Ur Oxycodone Screen Positive H Urine Methadone Screen Not Detected Urine Fentanyl Screen Not Detected Ur Barbiturates Screen Not Detected Ur Phencyclidine Scrn Not Detected Ur Amphetamines Screen Not Detected U Benzodiazepines Scrn Not Detected Urine Cocaine Screen Not Detected U Marijuana (THC) Screen POSITIVE H Microbiology Microbiology Results: Microbiology 05/11/25 09:08 Gram Stain - Final Thumb Right - Right Thumb 05/09/25 19:04 Blood Culture - Preliminary Blood - Venous No growth after 24 hours. 05/09/25 19:04 Blood Culture - Preliminary Blood - Venous No growth after 24 hours. Assessment and Plan (1) Osteomyelitis of right hand: Status: Acute Plan Patient is a 54-year-old male with a past medical history significant for opioid use disorder on Sublocade, anxiety, depression, hypertension, history MRSA bacteremia, history of epidural abscess, Tobacco use disorder, multiple recent ED visits due to infection of the right thumb with osteomylitis (OM) OM of R thumb, CT finding c/w with osteomylitis BC NTD ortho consulted, I&D done by ortho today, cultures pending ID consulted reccs dc zosyn and cont with vanco only if cx remain -ve, 6 weeks of dapto , with weekly ck and cr Normocytic anemia, stable, no indication for transfusion Tobacco use disorder NRT, cessation discussed OUD in remission - has outpt tx with sublocade anxiety/depression waiting for med rec HTN awaiting med rec Full code VTE prophylaxis: Lovenox Patient with osteomyelitis right thumb with multiple failed outpatient treatments, requiring admission for at least 2 midnight stay for IV antibiotics and ID consultation. Quality Stroke Does the patient have a stroke diagnosis?: No VTE Prior VTE?: No VTE Risk Level:: Medical - moderate - high VTE Device Contraindication: Treatment Not Indicated VTE Drug Contraindication: N/A - Med Ordered
[2025-05-11] MEDS: oxyCODONE HCl Immed Release 5 MG TABLET PO (18:26)
[2025-05-11] MEDS: diazePAM 10 MG/2 ML CARTRIDGE 5 MG IVPUSH (21:57)
[2025-05-12] MEDS: oxyCODONE HCl Immed Release 5 MG TABLET PO ×3 (01:33→17:56)
[2025-05-12] MEDS: oxyCODONE HCl Immed Release 5 MG TABLET 10 MG PO (02:05)
[2025-05-12 03:26] VITALS: BP 122/71; PULSE 56; RESP 18; TEMP 36.1; O2SAT 94
--- NOTE | 2025-05-12 04:34 | PC.NURSE ---
1900: This RN assumed care at, 1900 pt restless in bed 10/10 pain, about one hour after having the oxy, with no improvement. Dr. Roman made aware, new order placed once of morphine. 2100: pain reassess no improvement, crying/very anxious, Dr. Roman made aware and asked valium to calm him down so hopefully he can sleep, he is describing it as alot of pressure & burning 0: pain 10/10, pain meds given. With still no improvement. 2358: Dr. Roman made aware, and asked what he thinks, that if 5mg of oxycodone is enough for the procedure he had done, where they removed the nail and some bone, and he has 5mg of oxy for 7-10 pain, and ultram for 4-6, that does not seem like enough coverage. Dr. Roman placed new orders.
[2025-05-12 06:11] LABS: MANUAL DIFF FLAG NO
--- NOTE | 2025-05-12 06:11 | PC.NURSE ---
1900: This RN assumed care at, 1900 pt restless in bed 10/10 pain, about one hour after having the oxy, with no improvement. Dr. Roman made aware, new order placed once of morphine. 2099: pain reassessed no improvement, he is describing it as alot of pressure & burning, pt crying/very anxious, Dr. Roman made aware and ordered valium 2199: Valium appeared to help calm patient down. 2199: pain 10/10, pain meds given. With still no improvement. 2358: Dr. Roman messaged about pain management, if it is enough for the patient, Dr. Roman reviewed the meds and placed new once orders.
[2025-05-12 06:26] LABS: Hematocrit 38.1 % (42.0-52.0); Hemoglobin 13.0 g/dl (14.0-18.0); Imm Gran Abs Auto 0.05 X10*3/uL (0.00-0.03); Imm Gran Pct Auto 1.0 % (0.0-0.4); Lymphocytes Absolute Auto 1.2 X10*3/uL (1.2-4.9); Mean Corpuscular HGB Conc 34.1 g/dl (31.0-36.0); Mean Corpuscular Hemoglobin 31.9 pg (27.0-33.0); Mean Corpuscular Volume 93.6 fL (80.0-98.0); NRBC Abs Auto 0.000 X10*3/uL (0.0-0.012); NRBC Pct Auto 0.0 /100WBC (0.0-0.2); Platelet Count 165 X10*3/uL (160-400); Red Blood Count 4.07 X10*6/uL (4.60-5.80); White Blood Count 5.2 X10*3/uL (4.8-10.8)
[2025-05-12 06:40] LABS: Anion Gap 12 (12-20); Blood Urea Nitrogen 15 mg/dL (9-16); Calcium 8.7 mg/dL (8.4-10.2); Carbon Dioxide 26 mmol/L (22-29); Chloride 107 mmol/L (96-108); Creatinine Clr Calc Pharmacy 83.8; Estimated Glomerular Filt Rate > 60; Potassium 4.0 mmol/L (3.3-5.1); Sodium 141 mmol/L (135-145)
[2025-05-12 08:00] VITALS: BP 108/68; PULSE 54; RESP 16; TEMP 36.2; O2SAT 94
--- NOTE | 2025-05-12 08:21 | HO.POSTANES ---
Post Anesthesia Evaluation Post Anesthesia Evaluation Date of Service: 05/12/25 Vital Signs: Vital Signs Temp Pulse Resp BP Pulse Ox O2 Del Method 05/12/25 03:26 97.0 F 56 18 122/71 94 Room Air Anesthesia: Monitored Mental Status: Awake Pain Control: Satisfactory Nausea/Vomiting: None Hydration: Adequate Anesthesia-Related Issues: No Anes. Related Issues
[2025-05-12] MEDS: Nicotine 21 MG PATCH.TD24 TRANSDERMA (08:48)
[2025-05-12] MEDS: 0.9 % Sodium Chloride Flush 3 ML SYRINGE IVFLUSH ×2 (08:49→17:55)
--- NOTE | 2025-05-12 13:16 | HO.PM.IMPN ---
Subjective Subjective Date of Service: 05/12/25 Interval History: Pt seen this am, appears in good spirits, denies any pain, states he wants to get discharged now, working with PT, Review of Systems -ve for all sx Physical Exam Vital Signs: Vital Signs: Last Vital Signs Temp 97.1 F 05/12/25 08:00 Pulse 54 05/12/25 08:00 Resp 16 05/12/25 08:00 BP 108/68 05/12/25 08:00 Pulse Ox 94 05/12/25 08:00 O2 Del Method Room Air 05/12/25 08:00 O2 Flow Rate 4 05/11/25 11:25 BMI result Body Mass Index 30.1 A&Ox 3, in NAD abdomen soft not tender heart RRR lungs CTAB, extremities: Rt thumb dressing intact, no active discharge seen , non tender Objective Data Active Medications Acetaminophen (Acetaminophen 325 Mg Tablet) 975 mg PO Q6H PRN PRN Reason: Pain, Mild 1-3,fever,headache Last Admin: 05/11/25 21:58 Dose: 975 mg Documented By: BEVERLY Comments: per pt request for 07/03 pain Calcium Carbonate (Calcium Carbonate 750 Mg Tab.Chew) 750 mg PO Q4H PRN PRN Reason: Heartburn Enoxaparin Sodium (Enoxaparin Sodium 40 Mg/0.4 Ml Syringe) 40 mg SUBCUT Q24H [facility] Last Admin: 05/11/25 22:01 Dose: Not Given Documented By: BEVERLY Non-Admin Reason: Patient Refused Vancomycin HCl 1,000 mg/ (Sodium Chloride) 270 mls @ 270 mls/hr IV Q12H [facility] Magnesium Hydroxide (Milk Of Magnesia 30 Ml Oral.Susp) 30 ml PO DAILY PRN PRN Reason: Constipation Melatonin (Melatonin 3 Mg Tablet) 6 mg PO BEDTIME PRN PRN Reason: Insomnia Naloxone HCl (Naloxone Hcl 0.4 Mg/Ml Vial) 0.04 mg IVPUSH Q5M PRN PRN Reason: Excessive sedation or RR < 8 Naloxone HCl (Naloxone Hcl 0.4 Mg/Ml Vial) 0.04 mg IVPUSH Q5M PRN PRN Reason: Excessive sedation or RR < 8 Nicotine (Nicotine 21 Mg Patch.Td24) 21 mg TRANSDERMA DAILY [facility] Last Admin: 05/12/25 08:48 Dose: 21 mg Documented By: ASH Oxycodone HCl (Oxycodone Hcl Immed Release 5 Mg Tablet) 5 mg PO Q4H PRN PRN Reason: Pain, Severe (Pain Scale 7-10) Last Admin: 05/12/25 08:47 Dose: 5 mg Documented By: ASH Pharmacy Consult (Consult Rx Vancomycin Dosing) 1 each MISCELLANE DAILY PRN PRN Reason: Consult order Sodium Chloride (0.9 % Sodium Chloride Flush 3 [facility]l [facility]) [facility] Admin: 05/12/25 08:49 Dose: 3 ml Documented By: ASH Tramadol HCl (Tramadol Hcl 50 Mg Tablet) 50 mg PO Q6H PRN PRN Reason: Pain, Moderate(Pain Scale 4-6) Last Admin: 05/11/25 21:58 Dose: 50 mg Documented By: BEVERLY Comments: per pt request for 07/03 pain Labs 05/12/25 05:54 05/12/25 05:54 Labs: Laboratory Results - last 24 hr 05/12/25 05:54 MCV 93.6 MCH 31.9 MCHC 34.1 RDW 13.8 Plt Count 165 MPV 9.0 L Immature Gran % (Auto) 1.0 H Neut % (Auto) 59.8 Lymph % (Auto) 22.8 [place] % (Auto) 10.4 Eos % (Auto) 5.6 H Baso % (Auto) 0.4 Lymph # (Auto) 1.2 [place] # (Auto) 0.5 Eos # (Auto) 0.3 Baso # (Auto) 0.0 Abs Immat Gran (auto) 0.05 H Absolute Neuts (auto) 3.1 Absolute Nucleated RBC 0.000 Nucleated RBC % (auto) 0.0 Anion Gap 12 Estim Creat Clear Calc 83.8 Estimated GFR > 60 Random Glucose 88 Calcium 8.7 Total Creatine Kinase 122 Microbiology Microbiology Results: Microbiology 05/11/25 09:08 Gram Stain - Final Thumb Right - Right Thumb Routine Culture - Preliminary Staphylococcus aureus 05/09/25 19:04 Blood Culture - Preliminary Blood - Venous No growth after 48 hours. 05/09/25 19:04 Blood Culture - Preliminary Blood - Venous No growth after 48 hours. Assessment and Plan (1) Osteomyelitis of right hand: Status: Acute Plan Patient is a 54-year-old male with a past medical history significant for opioid use disorder on Sublocade, anxiety, depression, hypertension, history MRSA bacteremia, history of epidural abscess, Tobacco use disorder, multiple recent ED visits due to infection of the right thumb with osteomyelitis (OM) OM of R thumb, CT finding c/w with osteomyelitis BC NTD, wound cultures growing staph aureus ortho consulted, I&D done by ortho on 05/11 ID consulted reccs dc zosyn and cont with vanco only if cx remain -ve, 6 weeks of dapto , with weekly ck and cr Picc line order placed PT reccs outpt OT Normocytic anemia, stable, no indication for transfusion Tobacco use disorder NRT, cessation discussed OUD in remission - has outpt tx with sublocade anxiety/depression home meds unknown HTN unknown home meds Full code VTE prophylaxis: Lovenox Patient with osteomyelitis right thumb with multiple failed outpatient treatments, requiring admission for at least 2 midnight stay for picc line and iv abx Quality Stroke Does the patient have a stroke diagnosis?: No VTE Prior VTE?: No VTE Risk Level:: Medical - moderate - high VTE Device Contraindication: Treatment Not Indicated VTE Drug Contraindication: N/A - Med Ordered
[2025-05-12 16:00] VITALS: BP 116/66; PULSE 50; RESP 18; TEMP 36.6; O2SAT 96
[2025-05-12 19:32] VITALS: BP 104/59; PULSE 54; RESP 18; TEMP 36.3; O2SAT 93
[2025-05-13] MEDS: 0.9 % Sodium Chloride Flush 3 ML SYRINGE IVFLUSH ×3 (00:20→22:47)
[2025-05-13] MEDS: oxyCODONE HCl Immed Release 5 MG TABLET PO (02:54)
[2025-05-13 03:16] VITALS: BP 124/74; PULSE 67; RESP 18; TEMP 36.3; O2SAT 99
[2025-05-13 06:55] LABS: Creatinine Clr Calc Pharmacy 87.4; Estimated Glomerular Filt Rate > 60
[2025-05-13 07:24] VITALS: BP 107/55; PULSE 50; RESP 16; TEMP 36.3; O2SAT 96
[2025-05-13] MEDS: Nicotine 21 MG PATCH.TD24 TRANSDERMA (09:37)
--- NOTE | 2025-05-13 10:07 | PM.PNORT ---
Subjective Subjective Date of Service: 05/12/25 Interval history: Postop day 1 status post I and D of right thumb distal phalanx Patient resting comfortably in bed Pain well managed No acute events overnight No other acute complaints or concerns at this time Physical Exam Vital Signs: Vital Signs: Last Vital Signs Temp 97.4 F 05/13/25 07:24 Pulse 50 05/13/25 07:24 Resp 16 05/13/25 07:24 BP 107/55 L 05/13/25 07:24 Pulse Ox 96 05/13/25 07:24 O2 Del Method Room Air 05/13/25 07:24 O2 Flow Rate 4 05/11/25 11:25 BMI result Body Mass Index 30.1 Extrem: Other: Small puncture wound to the tip of the right thumb. There is an incision site noted of the tip of the right thumb distal to the nail. Surrounding erythema and edema on the dorsal and palmar aspect of the thumb extended to the IP joint appears to have improved from prior to surgery. Able to flex and extend at the IP and MCM. Minimal Tenderness to palpation distal fro the CMC. No pain with axial loading. Sensation is intact. Capillary refill is brisk. Procedures Date of Service Date of Service: 05/13/25 Progress Note: A&P Assessment and plan (1) Osteomyelitis of right hand: Status: Acute Plan 1. Status post I and D of osteomyelitis of distal phalanx of right thumb DOS 05/11/2025 Patient appears to be recovering well postoperatively Patient is educated about the typical recovery course Dressing changed today Daily dressing changes per nursing Continue IV antibiotics per Medicine and Infectious Disease Continue with all other recommendations per Medicine Time Spent With Patient Time: Total time managing care of this patient today ____ minutes. Quality Stroke Does the patient have a stroke diagnosis?: No VTE Prior VTE?: No VTE Risk Level:: Medical - moderate - high VTE Device Contraindication: Treatment Not Indicated VTE Drug Contraindication: N/A - Med Ordered
--- NOTE | 2025-05-13 11:30 | P.PNIM_ITS ---
Subjective Subjective Date of Service: 05/13/25 Interval History: Doing well, able to manipulate objects with his right hand Denies significant pain No other systemic symptoms POD1 s/p I&D of right thumb distal phalanx No acute events overnight Pt will need OT eval, addiction medicine eval, and need STR due to hx of IVDU PICC line ordered, will be placed once STR bed available Review of Systems Review of Systems: Yes all other systems are reviewed and are negative Physical Exam 2 Exam: Exam: General: AOx3, no acute distress Resp: CTA bilaterally CVS: S1, S2, RRR GI: +BS, NT, no distention Skin: Warm, dry Neuro: Cranial nerves II-XII grossly intact bilaterally. Motor grossly intact bilaterally Extremities: No edema. Right hand and thumb covered in clean and dry dressing. See ortho note for description of wound and incision Psych: Appropriate affect Vital Signs: Vital Signs: Last Vital Signs Temp 97.4 F 05/13/25 07:24 Pulse 50 05/13/25 07:24 Resp 16 05/13/25 07:24 BP 107/55 L 05/13/25 07:24 Pulse Ox 96 05/13/25 07:24 O2 Del Method Room Air 05/13/25 07:24 O2 Flow Rate 4 05/11/25 11:25 BMI result Body Mass Index 30.1 Objective Data Active Medications Acetaminophen (Acetaminophen 325 Mg Tablet) 975 mg PO Q6H PRN PRN Reason: Pain, Mild 1-3,fever,headache Last Admin: 05/13/25 02:53 Dose: 975 mg Documented By: BEVERLY Comments: per pt request tylenol fo 04/02 pain Calcium Carbonate (Calcium Carbonate 750 Mg Tab.Chew) 750 mg PO Q4H PRN PRN Reason: Heartburn Enoxaparin Sodium (Enoxaparin Sodium 40 Mg/0.4 Ml Syringe) 40 mg SUBCUT Q24H [facility] Last Admin: 05/13/25 00:20 Dose: 40 mg Documented By: BEVERLY Vancomycin HCl 1,000 mg/ (Sodium Chloride) 270 mls @ 270 mls/hr IV Q12H [facility] Last Admin: 05/13/25 11:19 Dose: 270 mls/hr Documented By: ASH Magnesium Hydroxide (Milk Of Magnesia 30 Ml Oral.Susp) 30 ml PO DAILY PRN PRN Reason: Constipation Melatonin (Melatonin 3 Mg Tablet) 6 mg PO BEDTIME PRN PRN Reason: Insomnia Naloxone HCl (Naloxone Hcl 0.4 Mg/Ml Vial) 0.04 mg IVPUSH Q5M PRN PRN Reason: Excessive sedation or RR < 8 Naloxone HCl (Naloxone Hcl 0.4 Mg/Ml Vial) 0.04 mg IVPUSH Q5M PRN PRN Reason: Excessive sedation or RR < 8 Nicotine (Nicotine 21 Mg Patch.Td24) 21 mg TRANSDERMA DAILY [facility] Last Admin: 05/13/25 09:37 Dose: 21 mg Documented By: ASH Oxycodone HCl (Oxycodone Hcl Immed Release 5 Mg Tablet) 5 mg PO Q4H PRN PRN Reason: Pain, Severe (Pain Scale 7-10) Last Admin: 05/13/25 02:54 Dose: 5 mg Documented By: BEVERLY Pharmacy Consult (Consult Rx Vancomycin Dosing) 1 each MISCELLANE DAILY PRN PRN Reason: Consult order Sodium Chloride (0.9 % Sodium Chloride Flush 3 Ml Syringe) [facility] Last Admin: 05/13/25 09:38 Dose: 3 ml Documented By: ASH Tramadol HCl (Tramadol Hcl 50 Mg Tablet) 50 mg PO Q6H PRN PRN Reason: Pain, Moderate(Pain Scale 4-6) Last Admin: 05/13/25 00:18 Dose: 50 mg Documented By: BEVERLY Labs 05/12/25 05:54 05/13/25 05:53 Labs: Laboratory Results - last 24 hr 05/12/25 05/13/25 21:25 05:53 Hold Purple Top SEE NOTE Estim Creat Clear Calc 87.4 Estimated GFR > 60 Vancomycin Trough 13.6 Microbiology Microbiology Results: Microbiology 05/11/25 09:08 Gram Stain - Final Thumb Right - Right Thumb Routine Culture - Final Staphylococcus aureus Assessment and Plan (1) Osteoarthritis of right thumb: Status: Acute Plan Patient is a 54-year-old male with a past medical history significant for opioid use disorder on Sublocade, anxiety, depression, hypertension, history MRSA bacteremia, history of epidural abscess, Tobacco use disorder, multiple recent ED visits due to infection of the right thumb with osteomyelitis (OM) OM of R thumb, CT finding c/w with osteomyelitis BC NTD, wound cultures growing staph aureus ortho consulted, I&D done by ortho on 05/11 ID consulted reccs dc zosyn and cont with vanco only BCx neg x48h; ID rec 6 weeks of dapto , with weekly ck and cr Picc line order placed; won't be placed until has STR bed available PT reccs outpt OT Will get OT eval, addiction medicine consult Normocytic anemia, stable, no indication for transfusion Tobacco use disorder NRT, cessation discussed OUD in remission - has outpt tx with sublocade anxiety/depression home meds unknown HTN unknown home meds Full code VTE prophylaxis: Lovenox Patient with osteomyelitis right thumb with multiple failed outpatient treatments, requiring admission for at least 2 midnight stay for picc line and iv abx and STR placement Quality Stroke Does the patient have a stroke diagnosis?: No VTE Prior VTE?: No VTE Risk Level:: Medical - moderate - high VTE Device Contraindication: Treatment Not Indicated VTE Drug Contraindication: N/A - Med Ordered
--- NOTE | 2025-05-13 12:19 | MHC.CM.PN ---
Per MD rounds patient is ready to discharge. A PICC line is pending a bed offer from a SNF. ID recommendation is for 6 weeks IV ABX. OT eval has been done. An Addiction medicine consult is pending. DP 6 weeks IV ABX in a facility via BLS.
--- NOTE | 2025-05-13 14:41 | MHC.CM.PN ---
Per MD rounds patient is cleared for PICC line insertion. A call was received from Gretchen JIMENEZ RN. She is aware of Substance use HX. [facility] protocol for HX SARAH no line insertion until a a bed offer has been secured. CM will inform IR once a bed is secured. No bed offers have been received. CM will continue bed search.
--- NOTE | 2025-05-13 14:59 | HO.ADDICT_ITS ---
History of Present Illness Date of Service: 05/13/2025 Chief Complaint: Right Distal Phalanx ostemyelitis Reason for Consult: Substance use evaluation Sources of Information: patient interviewed and chart reviewed HPI Narrative: Patient is a 54 year old male medically admitted with osteomyelitis. Consult requested to conduct substance use evaluation due to history of IVDU and need for IV antibiotics. Patient seen in room 360. He is awake, alert, pleasant and engaged in interview. He reports history of OUD, with last use 05/2023. He reports that prior to that he used once in February of 2023, but had abstained from all opiate use for over one year. He was engaged in treatment for OUD, until September of 2024, when he reports he received his last Sublocade injection. Per patient, this was a planned discontinuation of the medication, and he had received 2 injections before that. He denies any withdrawal sx after discontinuing medication. Denies any cravings or thoughts of using. He reports history of AUD, with last drink August 2024. He was incarcerated for 2 months at the beginning of this year. and is currently on probation which includes 3Xdaily breathalyzers. He states that while incarcerated he did not receive any medications for OUD, as his plan was to d/c Buprenorpohine. Discussed recovery supports. He identifies his job as a big motivator, and is eager to get back to work. He states that he has a therapist he sees every 2 weeks through [facility]. He lives with his GF and cousin and his mother lives on the second floor. --He identifies all of them as supportive of his recovery. UDS reviewed--+thc, opiates (which were administered here) Medical Evaluation Reviewed: Yes Review of Systems Constitutional: Reports as per HPI and Reports no additional constitutional complaints Diagnostics Vital Signs (24Hr): Vital Signs - 24 hr 05/12/25 16:00 05/12/25 19:32 05/13/25 03:16 Temperature 97.9 F 97.3 F 97.3 F Pulse Rate 50 54 67 Respiratory Rate 18 18 18 Blood Pressure 116/66 104/59 L 124/74 Pulse Oximetry 96 93 99 Oxygen Delivery Method Room Air Room Air Room Air 05/13/25 07:24 Temperature 97.4 F Pulse Rate 50 Respiratory Rate 16 Blood Pressure 107/55 L Pulse Oximetry 96 Oxygen Delivery Method Room Air BMI result Body Mass Index 30.1 Labs 05/12/25 05:54 05/13/25 05:53 Labs: Laboratory Results - last 48 hr 05/12/25 05/12/25 05/13/25 05:54 21:25 05:53 WBC 5.2 RBC 4.07 L Hgb 13.0 L Hct 38.1 L MCV 93.6 MCH 31.9 MCHC 34.1 RDW 13.8 Plt Count 165 MPV 9.0 L Immature Gran % (Auto) 1.0 H Neut % (Auto) 59.8 Lymph % (Auto) 22.8 [place] % (Auto) 10.4 Eos % (Auto) 5.6 H Baso % (Auto) 0.4 Lymph # (Auto) 1.2 [place] # (Auto) 0.5 Eos # (Auto) 0.3 Baso # (Auto) 0.0 Abs Immat Gran (auto) 0.05 H Absolute Neuts (auto) 3.1 Absolute Nucleated RBC 0.000 Nucleated RBC % (auto) 0.0 Hold Purple Top SEE NOTE Sodium 141 Potassium 4.0 Chloride 107 Carbon Dioxide 26 Anion Gap 12 BUN 15 Creatinine 0.97 0.93 Estim Creat Clear Calc 83.8 87.4 Estimated GFR > 60 > 60 Random Glucose 88 Calcium 8.7 Total Creatine Kinase 122 Vancomycin Trough 13.6 Mental Status Exam Mental Status Exam Patient Appearance: Appropriate Patient Orientation: Person, Place, Time and Situation Level of Consciousness: Awake, Appropriate and Alert Patient Behavior: Appropriate and Talkative Affect Description: Calm Speech Pattern: Clear Hallucinations: None Thought Process: Intact Thought Content: positive for Intact Judgement: Good Medications Medications Current Medications Acetaminophen (Acetaminophen 325 Mg Tablet) 975 mg PO Q6H PRN PRN Reason: Pain, Mild 1-3,fever,headache Last Admin: 05/13/25 02:53 Dose: 975 mg Calcium Carbonate (Calcium Carbonate 750 Mg Tab.Chew) 750 mg PO Q4H PRN PRN Reason: Heartburn Enoxaparin Sodium (Enoxaparin Sodium 40 Mg/0.4 Ml Syringe) 40 mg SUBCUT Q24H [facility] Last Admin: 05/13/25 00:20 Dose: 40 mg Vancomycin HCl 1,000 mg/ (Sodium Chloride) 270 mls @ 270 mls/hr IV Q12H [facility] Last Infusion: 05/13/25 12:43 Dose: Infused Magnesium Hydroxide (Milk Of Magnesia 30 Ml Oral.Susp) 30 ml PO DAILY PRN PRN Reason: Constipation Melatonin (Melatonin 3 Mg Tablet) 6 mg PO BEDTIME PRN PRN Reason: Insomnia Naloxone HCl (Naloxone Hcl 0.4 Mg/Ml Vial) 0.04 mg IVPUSH Q5M PRN PRN Reason: Excessive sedation or RR < 8 Naloxone HCl (Naloxone Hcl 0.4 Mg/Ml Vial) 0.04 mg IVPUSH Q5M PRN PRN Reason: Excessive sedation or RR < 8 Nicotine (Nicotine 21 Mg Patch.Td24) 21 mg TRANSDERMA DAILY [facility] Last Admin: 05/13/25 09:37 Dose: 21 mg Oxycodone HCl (Oxycodone Hcl Immed Release 5 Mg Tablet) 5 mg PO Q4H PRN PRN Reason: Pain, Severe (Pain Scale 7-10) Last Admin: 05/13/25 02:54 Dose: 5 mg Pharmacy Consult (Consult Rx Vancomycin Dosing) 1 each MISCELLANE DAILY PRN PRN Reason: Consult order Sodium Chloride (0.9 % Sodium Chloride Flush 3 Ml Syringe) 3 ml IVFLUSH [facility] Last Admin: 05/13/25 09:38 Dose: 3 ml Tramadol HCl (Tramadol Hcl 50 Mg Tablet) 50 mg PO Q6H PRN PRN Reason: Pain, Moderate(Pain Scale 4-6) Last Admin: 05/13/25 00:18 Dose: 50 mg Allergies Allergies Allergy/AdvReac Type Severity Reaction Status Date / Time No Known Allergies (No Known Allergy Verified 05/09/25 17:49 Allergies*) Assessment & Plan Assessment & Plan (1) Opioid use disorder, moderate, in sustained remission: Status: Acute Code(s): F11.21 - Opioid dependence, in remission Assessment and Plan: * per patient report, and available clinical information, last opiate use was 2 years ago (05/2023) * strong recovery supports in place, with 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 PICC line placement in itself is not a risk for recurrence of use. Total time managing care of this patient today __40__ minutes. [facility] Past Medical History Medical History Tobacco user (12/31/18) Chronic alcoholism in remission (03/21/18) Back pain History of ETOH abuse Chronic hepatitis C Hernia Opioid use disorder Intravenous drug abuse in remission Anxiety Depression HTN (hypertension) Family History Family History Mother Lung cancer Family history: reviewed and not pertinent Surgical History Surgical History History of amputation of finger Hx of surgical amputation of finger Social History Social History Household Members: Significant Other Housing: Apartment Are you a primary long term care administrator to a significant other at home: No Do you presently have visiting nurse or other home services: No Alcohol intake: former 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 Patient Tobacco Use Status: Current everyday Tobacco user Tobacco use type: Cigarette Cigarette Packs Per Day: 1 Cigarettes Per Day: 20.0 e-Cigarette/Vaping Use: Never Used Second Hand Smoke Exposure: No Substance Use Type: Marijuana Advance Directives Date on File: 08/04/21 service: No Current occupational status: unemployed
--- NOTE | 2025-05-13 15:05 | P.CDIM_ITS ---
PROVIDER RESPONSE TEXT: To clarify, the appropriate diagnosis supported by the clinical indicators: Other (explain): I debrided the tip of the distal phalanx using a small curette and also a rongeur. This means I removed a small amount of bone from the infected area of bone in effort to improve his chances of healing from this infection. Cultures were also taken. I also removed some of the fibrinous exudate and scar tissue as well as the sinus which extended from the bony infection through the skin. QUERY TEXT: PHYSICIAN'S DOCUMENTATION REQUEST Date of Query: 05/13/2025 09:46 AM EDT Patient Name: Adalberto Mari Admit Date: 05/09/2025 Dear Marlene Harrington MD, A review of the medical record indicates additional documentation may be needed. Please review below and update the documentation accordingly. Clinical Indicators: patient went to OR on 05/11/25 for Right thumb I and D of distal aspect of bone of the distal phalanx osteomyelitis instruments used included scissors, curette, rongeur Could you provide further clarification regarding the type of the debridement? Excisional debridement Non-excisional debridement Other (explain) Clinically unable to determine (explain) Thank you, Cici Champagne RN Use of terms such as suspected, likely, concern for, or probable (associated with a specific diagnosis that is being evaluated, monitored, or treated as if it exists) are acceptable and can be coded in the inpatient setting, when documented at the time of discharge. Please use your independent medical judgment in providing your response. THIS QUERY IS PART OF THE PERMANENT MEDICAL RECORD
[2025-05-13 15:24] VITALS: BP 96/69; PULSE 51; RESP 16; TEMP 36.1; O2SAT 94
--- NOTE | 2025-05-13 17:34 | MHC.RECOVRN ---
TW met with pt in with Jazmyne Gale NP to discuss risk for recurrence after Addiction Medicine consult placed to evaluate pt for appropriateness of PICC line placement for continued IV abx due to PMH for IVDU. On approach pt was sitting in bed watching tv. He was pleasant, calm, and cooperative. Pt was explained the reason for the visit and was agreeable to the meeting. He sat in bed during the interview and was active and engaged during assessment.?? Pt stated in his 30?s he had a fall from a large height and was prescribed 60 hydrocodone per week. Pt went on to report he was given this prescription for 7 months. ?When I went for an appointment one day the doctor told me he was cutting me down to 800mg Ibuprofen. That's when I started getting sick? Pt goes on to report he started buying hydrocodone on the street but it was too expensive so he started to use heroin intranasally ?until one day I tried the needle?. Pt then reports in 2004 he was arrested for a bank robbery and served 10 years in halfway ?and had to go cold turkey?. He was released in 2013 and used heroin once more but did not like the effects. He reports he has only used 1 other time since then, which was in 2021 after he was in an altercation with a family member that resulted in probation and is currently ordered to daily breathalyzer screenings. A Breathalyzer was present at pts bedside. Pt determined at that time (2021) that was not how he wanted to live his life and that ?I had too much to lose?. 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 obtained a vehicle, and has a fiance and cat now. ?My life is so good, I can?t risk it. Drugs are not what they used to be. I would never risk sticking something in a line that goes straight to my heart. Not a chance in hell. I just want to be able to work and provide for myself and going away to get antibiotics because I used to use drugs is not an option. I worked too hard to get where I am today?.? Pt states he resides with his mother who does not use drugs or alcohol, as well as his fiance, 3 years abstinent from alcohol? and brother, 6-7 years abstinent from alcohol. He states they are all supportive of his continued recovery. He reports he also lives with a cousin who is actively drinking and using suboxone, ?but we?re trying to help him. If I can do it, he can do it?.? Pt states he is compliant with his disability hearing officer and has a counselor through [facility]. He is agreeable to signing releases of information to either in order to obtain collateral information.? TW available for further concerns, questions, or support.?
[2025-05-13 19:36] VITALS: BP 120/71; PULSE 53; RESP 12; TEMP 36.4; O2SAT 93
[2025-05-14 03:22] VITALS: BP 118/63; PULSE 53; RESP 16; TEMP 36.2; O2SAT 94
[2025-05-14 06:39] LABS: Creatinine Clr Calc Pharmacy 105.6; Estimated Glomerular Filt Rate > 60
[2025-05-14 08:04] VITALS: BP 109/64; PULSE 50; RESP 12; TEMP 36.4; O2SAT 93
--- NOTE | 2025-05-14 08:14 | PM.PNORT ---
Subjective Subjective Date of Service: 05/14/25 Interval history: Postop day 2 status post I and D of right thumb distal phalanx Patient resting comfortably in bed Pain well managed No acute events overnight No other acute complaints or concerns at this time Physical Exam Vital Signs: Vital Signs: Last Vital Signs Temp 97.6 F 05/14/25 08:04 Pulse 50 05/14/25 08:04 Resp 12 05/14/25 08:04 BP 109/64 05/14/25 08:04 Pulse Ox 93 05/14/25 08:04 O2 Del Method Room Air 05/14/25 08:04 O2 Flow Rate 4 05/11/25 11:25 BMI result Body Mass Index 30.1 Extrem: Other: Dressing on right hand clean dry, and intact Patient is able to flex and extend all digits of the right hand fully and without difficulty Distal sensation intact Capillary refill brisk General: No surrounding ecchymosis, erythema, or evidence of infection. Psych: Appears grossly normal Affect normal Attitude cooperative Procedures Date of Service Date of Service: 05/14/25 Progress Note: A&P Assessment and plan (1) Osteomyelitis of right hand: Status: Acute Plan 1. Status post I and D of osteomyelitis of distal phalanx of right thumb DOS 05/11/2025 Patient appears to be recovering well postoperatively Patient is educated about the typical recovery course Daily dressing changes per nursing Continue IV antibiotics per Medicine and Infectious Disease Continue with all other recommendations per Medicine Time Spent With Patient Time: Total time managing care of this patient today ____ minutes. Quality Stroke Does the patient have a stroke diagnosis?: No VTE Prior VTE?: No VTE Risk Level:: Medical - moderate - high VTE Device Contraindication: Treatment Not Indicated VTE Drug Contraindication: N/A - Med Ordered
--- NOTE | 2025-05-14 08:17 | HO.PM.IMPN ---
Subjective Subjective Date of Service: 05/14/25 Interval History: S/p day 2 of I&D thumb distal phalanx No acute complaints Pain well controlled on OTC meds No acute events overnight Seen and evaluated by Addiction medicine for risk evaluation for PICC line Review of Systems Review of Systems: Yes all other systems are reviewed and are negative Physical Exam Exam: Exam: General: AOx3, no acute distress Resp: CTA bilaterally CVS: S1, S2, RRR GI: +BS, NT, no distention Skin: Warm, dry Neuro: Cranial nerves II-XII grossly intact bilaterally. Motor grossly intact bilaterally Extremities: No edema. Right thumb with clean dressing intact. Preserved active ROM of right hand. 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 Psych: Appropriate affect Vital Signs: Vital Signs: Last Vital Signs Temp 97.6 F 05/14/25 08:04 Pulse 50 05/14/25 08:04 Resp 12 05/14/25 08:04 BP 109/64 05/14/25 08:04 Pulse Ox 93 05/14/25 08:04 O2 Del Method Room Air 05/14/25 08:04 O2 Flow Rate 4 05/11/25 11:25 BMI result Body Mass Index 30.1 Objective Data Active Medications Acetaminophen (Acetaminophen 325 Mg Tablet) 975 mg PO Q6H PRN PRN Reason: Pain, Mild 1-3,fever,headache Last Admin: 05/13/25 02:53 Dose: 975 mg Documented By: BEVERLY Comments: per pt request tylenol fo 04/02 pain Calcium Carbonate (Calcium Carbonate 750 Mg Tab.Chew) 750 mg PO Q4H PRN PRN Reason: Heartburn Enoxaparin Sodium (Enoxaparin Sodium 40 Mg/0.4 Ml Syringe) 40 mg SUBCUT Q24H [facility] Last Admin: 05/13/25 22:46 Dose: 40 mg Documented By: BALA Vancomycin HCl 1,000 mg/ (Sodium Chloride) 270 mls @ 270 mls/hr IV Q12H [facility] Last Infusion: 05/13/25 23:53 Dose: Infused Documented By: BALA Magnesium Hydroxide (Milk Of Magnesia 30 Ml Oral.Susp) 30 ml PO DAILY PRN PRN Reason: Constipation Melatonin (Melatonin 3 Mg Tablet) 6 mg PO BEDTIME PRN PRN Reason: Insomnia Naloxone HCl (Naloxone Hcl 0.4 Mg/Ml Vial) 0.04 mg IVPUSH Q5M PRN PRN Reason: Excessive sedation or RR < 8 Naloxone HCl (Naloxone Hcl 0.4 Mg/Ml Vial) 0.04 mg IVPUSH Q5M PRN PRN Reason: Excessive sedation or RR < 8 Nicotine (Nicotine 21 Mg Patch.Td24) 21 mg TRANSDERMA DAILY [facility] Last Admin: 05/13/25 09:37 Dose: 21 mg Documented By: ASH Oxycodone HCl (Oxycodone Hcl Immed Release 5 Mg Tablet) 5 mg PO Q4H PRN PRN Reason: Pain, Severe (Pain Scale 7-10) Last Admin: 05/13/25 02:54 Dose: 5 mg Documented By: BEVERLY Pharmacy Consult (Consult Rx Vancomycin Dosing) 1 each MISCELLANE DAILY PRN PRN Reason: Consult order Sodium Chloride (0.9 % Sodium Chloride Flush 3 Ml Syringe) 3 ml IVFLUSH [facility] Last Admin: 05/13/25 22:47 Dose: 3 ml Documented By: BALA Tramadol HCl (Tramadol Hcl 50 Mg Tablet) 50 mg PO Q6H PRN PRN Reason: Pain, Moderate(Pain Scale 4-6) Last Admin: 05/13/25 00:18 Dose: 50 mg Documented By: BEVERLY Labs 05/12/25 05:54 05/14/25 05:30 Labs: Laboratory Results - last 24 hr 05/13/25 05/14/25 21:12 05:30 Hold Purple Top SEE NOTE Estim Creat Clear Calc 105.6 Estimated GFR > 60 Random Vancomycin 13.8 L Microbiology Microbiology Results: Microbiology 05/11/25 09:08 Gram Stain - Final Thumb Right - Right Thumb Routine Culture - Final Staphylococcus aureus Assessment and Plan (1) Osteomyelitis of right hand: Status: Acute Plan Patient is a 54-year-old male with a past medical history significant for opioid use disorder on Sublocade, anxiety, depression, hypertension, history MRSA bacteremia, history of epidural abscess, Tobacco use disorder, multiple recent ED visits due to infection of the right thumb with osteomyelitis (OM) OM of R thumb, CT finding c/w with osteomyelitis BCx NTD, wound cultures growing staph aureus Ortho consulted, I&D done by ortho on 05/11 ID consulted reccs dc zosyn and cont with vanco only while inpatient ID rec 6 weeks of dapto, with weekly ck and cr PICC line order placed; pt at low risk of IVDU recurrence, can be d/c home with line (see below) PT reccs outpt OT OUD in remission Last IVDU in 2002; intermittent snorting since then though clean since 05/2023 See and evaluated by addiction medicine: Has strong recovery supports in place including job, family, 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 oxycodone for the past 36 hours Pt appears motivated to retained his sobriety Pt is unable to go to STR for 6 weeks as will likely lose his job, car, and possibly housing Pt is at low risk for OUD relapse; as addiction medicine notes there is no evidence clinical that PICC line placement increases risk for recurrence of use Pt is cleared from a medical standpoint for PICC line placement for administration of IV antibiotics at home Normocytic anemia, stable, no indication for transfusion Tobacco use disorder NRT, cessation discussed anxiety/depression No home meds Full code VTE prophylaxis: Lovenox Patient with osteomyelitis right thumb with multiple failed outpatient treatments, requiring admission for at least 2 midnight stay for picc line and iv abx and STR placement Quality Stroke Does the patient have a stroke diagnosis?: No VTE Prior VTE?: No VTE Risk Level:: Medical - moderate - high VTE Device Contraindication: Treatment Not Indicated VTE Drug Contraindication: N/A - Med Ordered
--- NOTE | 2025-05-14 15:38 | P.PICC_ITS ---
PICC Line Insertion NPICC Diagnosis: Osteomyelitis Indication: long term ABT Pertinent Labs: Reviewed Technique: Following informed consent including risks, benefits and alternatives and using sterile technique including cap and mask, sterile gown, glove and drape, the left arm was prepped and draped in the usual sterile fashion of full barrier technique with G. Following completion of [place] Protocol the skin and soft tissues were anesthetized with 1% Lidocaine plain. Using ultrasound guidance, left basilic vein access was obtained. Over an 0.018 wire through peel-away sheath, a 4FR single lumen PASV PICC line was positioned. Catheter length is 39cm internal length, 0cm external length, for a total trimmed length of 39cm. The procedure was performed in 272. unable to perform Tip verification by [place] with Sherlock 3CG due to error interference message portable CXR obtained and read by Dr Scott. Tip located in [facility] per Dr Scott. Miroslava Carlisle notified. Ultrasound was used to document vein patency and for needle entry. A formal ultrasound picture was recorded. Vascular Pinball Machine Repairer has released the line for use and it is currently dressed with a StatLock, Tegaderm, and CHG disc. Verification has been performed for blood return and line patency. Arm Circumference: 35.5cm Equipment: [place]ver[place] POWERPICC SOLO catheter with sherlock 3cg tip Catheter Type: 4fr single lumen PASV catheter Lot #: [id number]
[2025-05-14 15:54] VITALS: BP 103/61; PULSE 56; RESP 18; TEMP 36.2; O2SAT 96
[2025-05-14 19:38] VITALS: BP 114/64; PULSE 53; RESP 17; TEMP 36.2; O2SAT 93
--- NOTE | 2025-05-14 21:38 | HE.PHANOTE ---
Re: Lizandro Renal function has significantly improved, trough returned at 13.6. Continue current dose of 1,000 mg with predicted AUC 418, predicted trough 14.4. Per Orestes, pt is to receive this last dose 05/14 @ 2300, then DC and switch to Daptomycin in the morning.
[2025-05-14] MEDS: 0.9 % Sodium Chloride Flush 3 ML SYRINGE IVFLUSH (22:31)
[2025-05-15 03:17] VITALS: BP 109/65; PULSE 52; RESP 17; TEMP 36.1; O2SAT 93
[2025-05-15 07:40] VITALS: BP 107/60; PULSE 48; RESP 15; TEMP 36.3; O2SAT 93
[2025-05-15] MEDS: DAPTOMYCIN IV (08:49)
[2025-05-15] MEDS: SODIUM CHLORIDE 0.9% IV (08:49)
[2025-05-15] MEDS: 0.9 % Sodium Chloride Flush 3 ML SYRINGE IVFLUSH (08:52)
--- NOTE | 2025-05-15 09:19 | MHC.CM.PN ---
Addendum entered by Chantell Romeo 05/15/25 11:18: Per MD rounds discharge today to home with IV Dapto. Patient will self transport home. Original Note: Patient will discharge today with IV ABX @ home. [facility] services.
[2025-05-15 11:47] VITALS: BP 92/61; PULSE 55; RESP 17; TEMP 36.1; O2SAT 96
--- NOTE | 2025-05-15 11:55 | W.MHC.F2F ---
Service Date Service Date: 05/15/25 Encounter Date of encounter: 05/15/25 Reasons for Services Signs and symptoms assessed: s/p I+D R thumb distal phalanx osteomyelitis Reason for residential: wound care, administration of IV, SQ, or IM injection and central line care MD Overseeing Care: Silvia Fitzgerald Homebound: Leaving the home is medically contraindicated at this time without the asist of a device and/or another person due th the listed conditions above and below. Reason homebound: immunosuppression / infection risk Certification: Based on the above findings, I certify that this patient is confined to the home and needs intermittent residential care, physical therapy and/or speech therapy, or continues to need occupational therapy. The patient is under my care, and I have initiated the establishment of the plan of care. The patient will be followed by a physician who will periodically review the plan of care. Time Spent With Patient Time: Total time managing care of this patient today ____ minutes.
--- NOTE | 2025-05-15 12:05 | P.DS_ITS ---
DS: Providers Provider Date of Service: 05/15/25 Date of admission: 05/09/25 19:54 Date of discharge: 05/15/25 Primary care physician: Silvia Fitzgerald MD Consults: 05/09/25 21:28 Consult to Infectious Diseases Routine Consulting Provider: [facility] Reason for consultation: oesoR thumb, recent failed PO abx outpt Has provider been notified: No 05/13/25 11:01 Addiction Medicine Provider Routine Consulting Provider: Addiction Covering Reason for consultation: Hx of IVDU; needs PICC for dapto x6 weeks for osteo DS: Diagnosis Discharge Diagnosis (1) Osteomyelitis of right hand: Status: Acute DS: Summary Hospital Course Hospital Course: from admission H+P by TATI Hagan, 05/09/25: Patient is a 54-year-old male with a past medical history significant for opioid use disorder on Sublocade, anxiety, depression, hypertension, history MRSA bacteremia, history of epidural abscess, Tobacco use disorder, multiple recent ED visits due to infection of the right thumb with I&D. The patient was seen here 03/21 treated with I+D, PO abx, and imaging negative for osteo or foreign body. 2 weeks later he was seen at [facility] again for I+D and PO abx, completed antibiotics as prescribed, however is still experiencing right thumb pain. He has been using a scapal at home to try to retrieve a foreign body. He reports 2 days ago started worsening with throbbing and pulsating sensation. The pain improves when he constricts this thumb, he is currently taping his thumb to help with his pain. He reports a clear drainage when he tries to express fluid from the puncture on the distal phalanx. He denies fever, chills, nausea or vomiting. 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 54-year-old male with a past medical history significant for opioid use disorder on Sublocade, anxiety, depression, hypertension, history MRSA bacteremia, history of epidural abscess, Tobacco use disorder, multiple recent ED visits due to infection of the right thumb with osteomyelitis (OM); admitted to the [facility] on the hospitalist service with Orthopedics and Infectious Disease consultation. Treated with vancomycin and piperacillin-tazobactam. I+D done 05/11/25 by Orthopedics. Blood cultures negative; wound culture grew MSSA. PICC line placed and patient was discharged on daptomycin via PICC with home infusion service/[facility]; total antibiotic course 6 weeks. Outpatient OT ordered. OUD in remission with last IVDU in 2002; seen and evaluated by Addiction Medicine. 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 He will follow up with Orthopedics and Infectious Disease in 2 weeks. Time Attestation Discharge Coordination Time (in mins): 35 Quality: Safe Use of Opioids Does Pt have an Active Cancer Diagnosis on the Problem List?: No Quality: Stroke Does the patient have a stroke diagnosis?: No Physical Exam Vital Signs: Vital Signs: Last Vital Signs Temp 97.0 F 05/15/25 11:47 Pulse 55 05/15/25 11:47 Resp 17 05/15/25 11:47 BP 92/61 05/15/25 11:47 Pulse Ox 96 05/15/25 11:47 O2 Del Method Room Air 05/15/25 11:47 O2 Flow Rate 4 05/11/25 11:25 BMI result Body Mass Index 30.1 Gen: in no acute distress HEENT: sclera anicteric, moist mucus membranes Neck: supple Lungs: clear to auscultation bilaterally Heart: regular rate and rhythm, no murmurs Abd: soft, non-tender, non-distended Ext: no edema, R thumb in dry dressing, normal ceiling cleaner strength, LUE PICC Skin: warm/well-perfused Neuro: alert and oriented x3, no focal findings Psych: appropriate affect DS: Data Data Completed and Pending Completed studies during hospitalization [Text1]: Procedures Detoxification Services for Substance Abuse Treatment (07/28/21) Drainage of Spinal Canal, Percutaneous Approach (07/28/21) Labs on day of discharge: Laboratory Results - last 24 hr 05/14/25 20:59 Random Vancomycin 13.6 L Discharge Plan Discharge Anticipated Discharge Date/Time: 05/15/25 11:57 Patient Disposition: Home Health Service Discharge Diagnosis: osteomyelitis of right thumb Referrals: [facility] [Other] - 1 Week Referral Note: IV Antibiotics and supplies provided by [facility] [Provider Group] - 2 Weeks [facility] [Outside] - 1 Week Silvia Fitzgerald MD [Primary Care Provider, Internal Medicine] - 1 Week Alissa Puente MD [Physician, Infectious Disease] - 2 Weeks Occupational Rehab - [facility] [Outside] - 1 Week Discharge Medications: New acetaminophen 325 mg Tablet 650 mg PO Q6H PRN (Reason: Pain, Mild 1-3,Fever,Headache) Qty: 30 0RF nicotine 21 mg/24 hr Patch 24 Hour 21 mg transdermal DAILY Qty: 30 0RF daptomycin 500 mg recon soln 558 mg IV Q24H Rx Instructions: administer over 30 mins Discharge Orders: Discharge Order (Routine); Ordered 05/15/25 Ordered By: Santos Haley Diet: Advance to usual diet Activity on Discharge: As tolerated Stand Alone Forms: Patient Portal Discharge page Print Language: New Zealander Care Plan Goals: cure of infection Health Concerns: osteomyelitis of right thumb Plan of Treatment: daptomycin 558 mg IV daily until 06/20/25; weekly CPK + SCr while on daptomycin; remove PICC line after antibiotics done daily dry sterile dressing changes follow up with [facility] Orthopedics and [facility] Infectious Disease in 2 weeks outpatient occupational therapy through [facility] Rehabilitation Services Please follow up with your primary care doctor within 1 week. Return to the hospital if you experience recurrent or worsening symptoms. Assessment: See Discharge Summary. Patient Instructions: Daptomycin (By injection), How to Care for Your PICC (Peripherally Inserted Central Catheter) (GEN)
[2025-05-15 12:22] VITALS: BP 110/51
--- NOTE | 2025-05-19 07:14 | P.CDIM_ITS ---
PROVIDER RESPONSE TEXT: To clarify, the appropriate diagnosis supported by the clinical indicators: Acute QUERY TEXT: PHYSICIAN'S DOCUMENTATION REQUEST Date of Query: 05/14/2025 02:06 PM EDT Patient Name: Adalberto Mari Admit Date: 05/09/2025 Dear En DUFFY, A review of the medical record indicates additional documentation may be needed. Please review below and update the documentation accordingly. Clinical Indicators: Per Hospitalist progress note 05/14/25: Osteomyelitis Right thumb wound culture +staph aureus IV Zosyn, IV Vancomycin Clarify which of the following accurately represents the acuity of the Osteomyelitis. Possible options might include: Acute Acute on chronic Compensated Chronic stable condition Remission Other (explain) Clinically unable to determine (explain) Thank you, Cici Champagne RN Use of terms such as suspected, likely, concern for, or probable (associated with a specific diagnosis that is being evaluated, monitored, or treated as if it exists) are acceptable and can be coded in the inpatient setting, when documented at the time of discharge. Please use your independent medical judgment in providing your response. THIS QUERY IS PART OF THE PERMANENT MEDICAL RECORD
== END 2025-05-15 12:19 | disposition home health service (06) | DRG 320 ==
LOC: HO.ED 21:00 → HO.EDOVER 21:30 → HO.S3 05-10 07:41
PROVIDERS: Orthopaedic Surgery; Physician Assistant; Admitting Provider Internal Medicine; Emergency Provider Emergency Medicine; PCP Internal Medicine; Visit Provider Family Medicine
PROC: 0PBR0ZZ Excision of Right Thumb Phalanx, Open Approach (ICD-10-PCS; CPT 11044; principal; 2025-05-11 09:20)
DX: M86.141 Other acute osteomyelitis, right hand (principal); B95.61 Methicillin susceptible Staphylococcus aureus infection as the cause of diseases classified elsewhere; D64.9 Anemia, unspecified; F11.20 Opioid dependence, uncomplicated; F17.210 Nicotine dependence, cigarettes, uncomplicated; Z71.6 Tobacco abuse counseling; F41.9 Anxiety disorder, unspecified; I10 Essential (primary) hypertension; Z86.14 Personal history of Methicillin resistant Staphylococcus aureus infection
CPT/HCPCS: 36415; 36573; 71045; 80048; 80053; 80202; 80307; 82550; 82565; 83540; 83605; 83735; 85025; 85652; 86140; 87040; 87070; 87077; 87186; 87205; 93005; 97161; 97165; 99285; C1751; J0696; J0878; J1171; J1650; J2003; J2270; J2543; J2704; J2795; J3010; J3360; J3373; J3374; J7120; S9485

== ENCOUNTER 2025-05-09 19:54 | Outpatient (BNV) | payer MEDICAID, SELFPAY | END 2025-05-09 21:44 | PROVIDERS: Admitting Provider Internal Medicine; Emergency Provider Emergency Medicine; PCP Internal Medicine; Visit Provider Internal Medicine Cardiovascular Disease | DX: R00.1 Bradycardia, unspecified (principal) | CPT/HCPCS: 93010 ==

== ENCOUNTER 2025-05-09 19:54 | Outpatient (BNV) | payer MEDICAID, SELFPAY | END 2025-05-14 15:20 | PROVIDERS: Admitting Provider Internal Medicine; Emergency Provider Emergency Medicine; PCP Internal Medicine; Visit Provider Radiology Diagnostic Radiology | DX: Z45.2 Encounter for adjustment and management of vascular access device (principal) | CPT/HCPCS: 71045 ==

== ENCOUNTER → 2025-05-09 19:54 | Outpatient (BNV) | payer MEDICAID, SELFPAY | PROVIDERS: Admitting Provider Internal Medicine; Emergency Provider Emergency Medicine; PCP Internal Medicine; Visit Provider Physician Assistant | DX: M86.9 Osteomyelitis, unspecified (principal) | CPT/HCPCS: 99222 ==

== ENCOUNTER → 2025-05-09 19:54 | Outpatient (BNV) | payer OTHER, SELFPAY | PROVIDERS: Admitting Provider Internal Medicine; Emergency Provider Emergency Medicine; PCP Internal Medicine; Visit Provider Nurse Practitioner Psychiatric/Mental Health | DX: F11.21 Opioid dependence, in remission (principal) | CPT/HCPCS: 99232 ==

== ENCOUNTER → 2025-05-09 19:54 | Outpatient (BNV) | payer MEDICAID, SELFPAY | PROVIDERS: Admitting Provider Internal Medicine; Emergency Provider Emergency Medicine; PCP Internal Medicine; Visit Provider Physician Assistant | DX: M86.9 Osteomyelitis, unspecified (principal) | CPT/HCPCS: 99223; 99232; 99233; 99239; 99499; G0180 ==

== ENCOUNTER → 2025-05-09 19:54 | Outpatient (BNV) | payer MEDICAID, SELFPAY | PROVIDERS: Admitting Provider Internal Medicine; Emergency Provider Emergency Medicine; PCP Internal Medicine; Visit Provider Internal Medicine | DX: M86.9 Osteomyelitis, unspecified (principal) | CPT/HCPCS: 99222 ==

== ENCOUNTER 2025-05-18 11:00 | Outpatient (REF) | payer MEDICAID, SELFPAY ==
--- OUTSIDE RECORDS SUMMARY | 2025-05-18 13:29 | XMS_ITS | Encounter Summary ---
Author Organization [employer] Address [address] [place] [address] Care Team Providers Care Commercial Installer Name Role Phone Silvia Fitzgerald MD Primary Care Provider + Reason for Visit * Reason Comments Transition Of Care (Tcm) HDF scheduled Encounter Details Date Type Department Care Team (Late st Contact Info) Description 05/18/2025 Patient Outreach [facility] [address] [place] [phone] Silvia Fitzgerald MD [address] [place], [place] [phone] Transition Of Care (Tcm) (HDF scheduled) Social History Tobacco Use Types Packs/Day Years Used Date Smoking Tobacco: Every Day Cigarettes 0.5 43.6 Started: 1981 Smokeless Tobacco: Never Alcohol Use Standard Drinks/Week Comments Never 0 (1 standard drink = 0.6 oz pur e alcohol) Sex and Gender Information Value Date Recorded Sex Assigned at Male 07/24/2022 10:16 AM EDT Legal Sex Male 10:16 AM EDT Gender Identity Male 07/24/2022 10:16 AM EDT Sexual Orientation Don't know 07/24/2022 10 :16 AM EDT documented as of this encounter Miscellaneous Notes * Significant Event - Bonny Ocasio - 05/18/2025 9:12 AM EDT 05/18/25 0911 Hospital Discharges and Admission for PCM Type of Visit Hospital Admission Date of Admission/Visit 05/09/25 Date of Discharge 05/15/25 Facility [facility] Diagnosis Osteomyelitis Disposition Discharged Home Follow-Up Actions Follow-Up Needed Provider appointment Follow-Up Outcome Spoke to Patient Initial Contact Date 05/18/25 AMANDA Draper placed outbound call to patient for HDF outreach. Patient's name and were confirmed. Patient educated on the importance of follow up with provider following inpatient admission. Patientoffered an HDF appt. Patient is agreeable to an appointment and has been scheduled for 06/04/2025 at10:45 am with [facility] Insurance verified prior to scheduling. Patient advised to bring to appointment a photo id and insurance card. Patient also notified that a health center pharmacist will be reaching out to them via telephone prior to their scheduled appointment in order to review their medications in preparation for their appointment. Patient provided with education on contacting the Health Center with any questions or concerns prior to the scheduled appointment. Patient educated on extended clinic hours on Mondays and Wednesdays, and Walk-In Urgent Care Located in [facility] of [facility]. Patient provided with after-hours line for [facility], , which offer night time triage service and option to transfer to senior reservations agent provider if needed. [facility] discharge has been scanned into patient chart. documented in this encounter Plan of Treatment Upcoming Encounters Date Type Department Care Team (Late st Contact Info) Description 06/04/2025 10:45 AM EDT Office Visit [facility] [address] [place] [address] [phone] Silvia Fitzgerald MD [address] [place] [phone] documented as of this encounter Visit Diagnoses Not on filedocumented in this encounter Care Teams Commercial Installer Relationship Specialty Start Date End Date Silvia Fitzgerald MD [address] [place] [phone] PCP - General Family Medicine 12/12/18 documented as of this encounter
[2025-05-18 14:18] LABS: Estimated Glomerular Filt Rate > 60
== END 2025-05-18 11:01 | disposition home or self-care (01) ==
LOC: HO.HVNA 11:00
PROVIDERS: PCP Internal Medicine; Visit Provider Internal Medicine
DX: M86.9 Osteomyelitis, unspecified (principal); B95.62 Methicillin resistant Staphylococcus aureus infection as the cause of diseases classified elsewhere
CPT/HCPCS: 36415; 82550; 82565

== ENCOUNTER 2025-05-20 10:09 | Outpatient (AMB) | payer MEDICAID, SELFPAY ==
--- NOTE | 2025-05-20 10:34 | A.OFFVIS_ITS ---
Intake Visit Reasons: PO- I&D Rt thumb w/ osteoyelitis 05/11/25 AR Intake Note: Adalberto is a 54 year old man who presents today post operatively status post right thumb I&D of distal aspect of bone of the distal phalanx osteomyelitis, DOS: 05/11/[address] Marlene Harrington. States he still has his PICC line and has b een keeping his incsion clean by doing daily dressing changes. Allergies No Known Allergies (No Known Allergies*) Allergy (Verified 05/20/25 10:35) HPI HPI PO- I&D Rt thumb w/ osteoyelitis 05/11/25 AR: Details: Adalberto is a 54 year old right hand dominant man who presents S/p right thumb I&D, DOS: 05/11/25. He has osteomyelitis to the tip of his right thumb, following an injury on ~03/07/25. he currently has a PICC line for IV Abx and is following with Dr. Puente for this. He says his thumb is already feeling better than it had before surgery. He felt there was a foreign body in the tip of his thumb when his pain began, and he was trying to cut it out at home. He was seen in the ED on 03/21/25 where two splinter pieces were removed from the tip of his thumb. He says he was then seen several weeks later at [facility] where again he had a piece of hard matter removed. He says he later removed a foreign body himself at home before he went back to the ED on 05/09/25. He denies remembering every getting a splinter or other foreign body in his thumb. 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 [facility] Medical History Tobacco user (12/31/18) Chronic alcoholism in remission (03/21/18) Back pain History of ETOH abuse Chronic hepatitis C Hernia Opioid use disorder Intravenous drug abuse in remission Anxiety Depression HTN (hypertension) Surgical History (Reviewed 05/20/25 @ 10:36 by Klarissa Harris [facility]) History of amputation of finger Hx of surgical amputation of finger Family History Mother Lung cancer Social History Household Members: Significant Other Housing: Apartment Are you a primary care management associate to a significant other at home: No Do you presently have visiting nurse or other home services: No Alcohol intake: former 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 Patient Tobacco Use Status: Current everyday Tobacco user Tobacco use type: Cigarette Cigarette Packs Per Day: 1 Cigarettes Per Day: 20.0 e-Cigarette/Vaping Use: Never Used Second Hand Smoke Exposure: No Substance Use Type: Marijuana Advance Directives Date on File: 08/04/21 service: No Current occupational status: unemployed Review of Systems Const All systems reviewed & are unremarkable except as noted in HPI and below Physical Exam Const General: no acute distress and alert Orientation/consciousness: patient oriented x3 Neuro General: patient oriented x3 Extrem Other: The patient was alert oriented and in no acute distress The incision is healing well with no erythema drainage or evidence of infection. Good thumb IP joint flexion and extension Mild tenderness at the tip of the thumb Sensation is intact Cap refill is brisk Microbiology report 05/11/25 Routine Culture Final 05/13/25-723 Organism 1 Staphylococcus aureus Quantity 1+ S aureus M.I.C. RX --------- --- Clindamycin <=0.25 S Erythromycin >=8 R Levofloxacin 0.25 S Oxacillin 0.5 S Penicillin-G >=0.5 R Tetracycline <=1 S Trimethoprim/Sulfamethoxazole <=10 S Psych Appearance: grossly normal Affect: normal affect Attitude: cooperative Assessment & Plan Assessment & Plan (1) Osteomyelitis of right hand: Comment: Th Code(s): M86.9 - Osteomyelitis, unspecified Category: Medical (2) Staphylococcus aureus bacteremia: Code(s): R78.81 - Bacteremia; B95.61 - Methicillin susceptible Staphylococcus aureus infection as the cause of diseases classified elsewhere Category: Medical Plan Assessment & Plan: 1. Right thumb distal phalanx osteomyelitis, S/P I&D DOS: 05/11/25 Several foreign body removal procedures done at [facility], [facility], and by the patient at home Symptoms began ~03/08/25 The patient appears to be doing well post-operatively I educated him about the post-operative course I explained the signs and symptoms of infection, if the patient develops any new or worsening erythema, drainage, pain, or warmth they should contact the clinic or attend the ED. He will continue to receive IV Abx through his PICC line for the next few weeks. he is on Daptomycin and follows with Dr. Puente in ID I discussed activity modifications He will perform gentle ROM exercises at home He should avoid any underwater activities but is able to wash his hands with soap & water He will follow up next week for a wound check & suture removal. After next week's visit if things are going well we can probably see him 4 weeks later. Scribed for Marlene Harrington MD by Adalberto Bazzi, medical lab tech instructor, on 05/20/25 at 10:45 AM, EST. Orders: Orders XR hand RT min 3V Today M79.641 - Pain in right hand Coding Level of Care Code Global (06922) Diagnoses Osteomyelitis of right hand M86.9 Staphylococcus aureus bacteremia R78.81; B95.61
--- OUTSIDE RECORDS SUMMARY | 2025-05-20 10:56 | XMS_ITS | Encounter Summary ---
Author Organization [employer] Address [address] 7t [place] [address] Care Team Providers Care System Administration Manager Name Role Phone Silvia Fitzgerald MD Primary Care Provider + Reason for Visit * Reason Comments Transition Of Care (Tcm) HDF scheduled Encounter Details Date Type Department Care Team (Late st Contact Info) Description 05/18/2025 Patient Outreach [facility] [address] [place] [phone] Silvia Fitzgerald MD [address] [place], [place] [phone] Transition Of Care (Tcm) (HDF scheduled) Social History Tobacco Use Types Packs/Day Years Used Date Smoking Tobacco: Every Day Cigarettes 0.5 43.7 Started: 1981 Smokeless Tobacco: Never Alcohol Use [...] Admission/Visit 05/09/25 Date of Discharge 05/15/25 Facility [facility] Diagnosis Osteomyelitis Disposition Discharged Home Follow-Up [...] been scheduled for 06/04/2025 at10:[address] [facility] Insurance verified prior to scheduling. Patient [...] Wednesdays, and Walk-In Urgent Care Located in [facility]. Patient provided with after-hours line for [facility], , which offer night time triage service and option to transfer to radiation monitor provider if needed. [facility] discharge has been scanned into patient chart. documented in this encounter Plan of Treatment Upcoming Encounters Date Type Department Care Team (Late st Contact Info) Description 06/04/2025 10:45 AM EDT Office Visit [facility] [address] [place] [address] [phone] Silvia Fitzgerald MD [address] [place] [phone] documented as of this encounter Visit Diagnoses Not on filedocumented in this encounter Care Teams System Administration Manager Relationship Specialty Start Date End Date Silvia Fitzgerald MD [address] [place] [phone] PCP - General Family Medicine 12/12/18 documented as of this encounter
--- OUTSIDE RECORDS SUMMARY | 2025-05-20 10:57 | XMS_ITS | Clinical Summary ---
Author Organization [employer] Address [address] [facility] [address] [place] [address] Care Team Providers Care Oxygen Tank Filler Name Role Phone Silvia Fitzgerald MD Primary [...] Encounters Date Type Department Care Team Description 05/18/2025 Orders Only GENERIC EXTERNAL DATA DEPARTMENT Provider, Generic External Data 05/18/2025 Patient Outreach [facility] [address] [place] [phone] Silvia Fitzgerald MD Transition Of Care (Tcm) (HDF scheduled) 05/09/2025 Orders Only [facility] External Provider, [facility] 03/21/2025 Orders Only [facility] External Provider, [facility] from Last 3 Months Immunizations Immunization Administration Dates Next Due Influenza injectable quadrivalent preservative f ree 06/09/2021 Influenza, IIV3, injectable 06/09/2021 Moderna Covid-19 Vaccine 12+ 07/06/2021,05/27/20 21 Tdap 03/15/2021,02/08/2016 Social History Tobacco Use Types Packs/Day Years Used Date Smoking Tobacco: Every Day Cigarettes 0.5 43.7 Started: 1981 Smokeless Tobacco: Never Tobacco Cessation:Ready [...] 03/25/2024 2:29 PM EDT Plan of Treatment Upcoming Encounters Date Type Department Care Team (Late st Contact Info) Description 06/04/2025 10:45 AM EDT Office Visit [facility] [address] [place] [phone] Silvia Fitzgerald MD [address] [place] [phone] Health Maintenance Due Date Last Done Comments [...] Procedure Name Priority Date/Time Associated Diagnosis Comments HOLD LAVENDER - POSSIBLE HEMATOLOGY Routine 05/18/2025 11:00 AM EDT CREATINE KINASE, TOTAL Routine 11:00 AM EDT CREATININE, SERUM Routine 05/18/2025 11: 00 AM EDT XR CHEST 1 VIEW Routine 05/14/2025 3:20 PM EDT SED RATE BY MODIFIED WESTERGREN Routine 05/09/2025 7:04 PM EDT LACTIC ACID Routine 05/09/2025 7:04 PM EDT C-REACTIVE PROTEIN Routine 05/09/2025 7: 04 PM EDT MAGNESIUM Routine 05/09/2025 7:04 PM EDT COMPREHENSIVE METABOLIC PANEL Routine 05/09/2025 7:04 PM EDT CBC WITH AUTO DIFFERENTIAL Routine 05/09/2025 7:[address] HAND W CONTRAST RIGHT Routine 05/09/2025 3:23 PM EDT XR HAND 3+ VIEWS RIGHT Routine 12:57 PM EDT SED RATE BY MODIFIED WESTERGREN Routine 05/09/2025 11:48 AM EDT C-REACTIVE PROTEIN Routine 05/09/2025 11 :48 AM EDT COMPREHENSIVE METABOLIC PANEL Routine 05/09/2025 11:48 AM EDT CBC WITH AUTO DIFFERENTIAL Routine 05/09/2025 11:48 AM EDT XR HAND 3+ VIEWS RIGHT Routine 2:39 PM EDT ZZZ HISTORICAL HIV AB/AG Routine 03/12/2020 4:40 PM EDT from Last 3 Months or Most Recently Relevant to Health Maintenance Results * Hold Lavender - Possible Hematology (05/18/2025 11:00 AM EDT) Hold Lavender - Possible Hematololgy SEE NOTE [facility] Comment:Specimen will be hel d untested for 8 hours. Call Hematologyif testing is desired. 05/18/2025 11:0 0 AM EDT 05/18/2025 1:17 PM EDT us Generic External Data Provider HISTORICAL/NON OR DERABLE LABS Final Result Performing Organization Address [facility] Co de Phone Number [facility] [address] [place] [phone] * Creatinine, Serum (05/18/2025 11:00 AM EDT) Pathologist [facility] Creatinine, Serum 0.79 0.5 - 1.4 mg/dL [facility] Estimated Glomerular Filt Rate >60 [facility] Comment:Chronic Kidney Disea se: Estimated GFR < 60 mL/min/1.55g2Ipyobi Kidney Disease: Estimated GFR < 15 mL/min/1.73m2 05/18/2025 11:0 0 AM EDT 05/18/2025 1:17 PM EDT us Generic External Data Provider LAB BLOOD ORDERAB LES Final Result Performing Organization Address [facility] Co de Phone Number [facility] [address] [place] [phone] * Creatine Kinase, Total (05/18/2025 11:00 AM EDT) Pathologist [facility] Creatine Kinase Total 103 38 - 174 U/L [facility] 05/18/2025 11:0 0 AM EDT 05/18/2025 1:17 PM EDT us Generic External Data Provider LAB BLOOD ORDERAB LES Final Result Performing Organization Address [facility] Co de Phone Number [facility] [address] [place] [phone] * XR Chest 1 View (05/14/2025 3:20 PM EDT) Anatomical Region Laterality Modality Chest Radiographic Susan ging 05/14/2025 3:20 PM EDT Narrative 05/14/2025 3:35 PM EDT [address] [address] XRay Report Signed Patient: Adalberto Mari MR#: [id number] : 1970 Acct:[id number] Age/Sex: 54 / M ADM Date: 05/09/25 Loc: HO.S3 360-[address]: En DUFFY Ordering Physician: En Carlisle Date of Service: 05/14/25 Procedure(s): XR chest 1V Accession Number(s): [id number] cc: En Carlisle; Silvia Fitzgerald MD EXAMINATION: XR CHEST CLINICAL INFORMATION: PICC line placement COMPARISON: March 23, 2023 TECHNIQUE: Frontal view of the chest was obtained. FINDINGS: No significant abnormality is noted involving the heart, lungs, mediastinum, bony thorax or soft tissues. Mild degenerative changes are present in the right AC joint. XR/XR chest 1V IMPRESSION: No acute disease Electronically signed by: Jadiel Ramirez MD 05/14/2025 03:32 PM EDT Dictated By: Jadiel Ramirez MD Signed By: <Electronically signed by Jadiel Ramirez MD in OV> 05/14/25 1532 DD/ 1520 TD/TT: 05/14/25 1529 [employer] Furnace Operator: Procedure Note Donotuseinterpreter, Image - 05/14/[address] [address] XRay Report Signed Patient: Adalberto Mari CMR#: [id number] : 1970Acct:[id number] Age/Sex: 54 / MADM Date: 05/09/25 Loc: HO.S3 360-[address]: En DUFFY Ordering Physician: En Carlisle Date of Service: 05/14/25 Procedure(s): XR chest 1V Accession Number(s): [id number] cc: En Carlisle; Silvia Fitzgerald MD EXAMINATION: XR CHEST CLINICAL INFORMATION: PICC line placement COMPARISON: March 23, 2023 TECHNIQUE: Frontal view of the chest was obtained. FINDINGS: No significant abnormality is noted involving the heart, lungs, mediastinum, bony thorax or soft tissues. Mild degenerative changes are present in the right AC joint. XR/XR chest 1V IMPRESSION: No acute disease Electronically signed by: Jadiel Ramirez MD 05/14/2025 03:32 PM EDT RP Dictated By: Jadiel Ramirez MD Signed By: <Electronically signed by Jadiel Ramirez MD in OV> 05/14/25 1532 DD/ 1520 TD/TT: 05/14/25 1529 [employer]ace Operator: [facility] External Provider IMG XR PROCEDURES Final Result * (ABNORMAL) CBC auto differential (05/09/2025 7:04 PM EDT) Only the most recent of2 resultswithin the time period is included. White Blood Count 5.4 4.8 - 10.8 X10*3/uL [facility] Red Blood Count 4.12(L) 4.60 - 5.80 X10*6/uL [facility] Hemoglobin 13.0(L) 14.0 - 18.0 g/dl [facility] Hematocrit 37.5(L) 42.0 - 52.0 % [facility] Mean Corpuscular Volume 91.0 80.0 - 98.0 fL [facility] Mean Corpuscular Hemoglobin 31.6 27.0 - 33.0 pg [facility] Mean Corpuscular HGB Conc 34.7 31.0 - 36.0 g/dl [facility] Red Cell Distribution Width 13.7 11.0 - 16.0 % [facility] Platelet Count 174 160 - 400 X10*3/uL [facility] Mean Platelet Volume 8.6(L) 9.4 - 12.4 fL [facility] Neutrophils Percent Auto 64.7 45 - 73 % [facility] Imm Gran Pct Auto 0.2 0.0 - 0.4 % [facility] Lymphocytes Percent Auto 24.4 20 - 40 % [facility] Monocytes Percent Auto 6.8 2 - 11 % [facility] Eosinophils Percent Auto 3.5 0 - 4 % [facility] Basophils Percent Auto 0.4 0 - 2 % [facility] NRBC Pct Auto 0.0 0.0 - 0.2 /100WBC [facility] Neutrophils Absolute Auto 3.5 2.0 - 8.3 x10*3/uL [facility] Imm Gran Abs Auto 0.01 0.00 - 0.03 X10*3/uL [facility] Lymphocytes Absolute Auto 1.3 1.2 - 4.9 X10*3/uL [facility] Monocytes Absolute Auto 0.4 0.1 - 1.2 X10*3/uL [facility] Eosinophils Absolute Auto 0.2 0.0 - 0.4 X10*3/uL [facility] Basophils Absolute Auto 0.0 0.0 - 0.2 X10*3/uL [facility] NRBC Abs Auto 0.000 0.0 - 0.012 X10*3/uL [facility] 05/09/2025 7:04 PM EDT 05/09/2025 7:09 PM EDT us Generic External Data Provider LAB BLOOD ORDERAB LES Final Result [facility] [address] [place] [phone] * Sed Rate by Amy Murdock (05/09/2025 7:04 PM EDT) Only the most recent of2 resultswithin the time period is included. Erythrocyte Sedimentation Rate 10 0 - 15 MM/HR [facility] Comment:Patients with polycy themia and many hemoglobin abnormalitiesmay have depressed sed rates whereas patients with anemiamay have elevated sed rates. 05/09/2025 7:04 PM EDT 05/09/2025 7:09 PM EDT Generic External Data Provider LAB BLOOD ORDERAB LES Final Result Performing Organization Address [facility] Co de Phone Number [facility] [address] [place] [phone] * C-reactive Protein (05/09/2025 7:04 PM EDT) Only the most recent of2 resultswithin the time period is included. C Reactive Protein 0.23 < or = 0.50 mg/dL [facility] 05/09/2025 7:04 PM EDT 05/09/2025 7:09 PM EDT Generic External Data Provider LAB BLOOD ORDERAB LES Final Result Performing Organization Address [facility] Co de Phone Number [facility] [address] [place] [phone] * Magnesium (05/09/2025 7:04 PM EDT) Magnesium 1.9 1.6 - 2.6 mg/dL [facility] 05/09/2025 7:04 PM EDT 05/09/2025 7:09 PM EDT Generic External Data Provider LAB BLOOD ORDERAB LES Final Result Performing Organization Address [facility] de Phone Number [facility] [address] [place] [phone] * Lactic Acid (05/09/2025 7:04 PM EDT) Lactic Acid 1.5 0.5 - 2.0 mmol/L [facility] 05/09/2025 7:04 PM EDT 05/09/2025 7:09 PM EDT us Generic External Data Provider LAB BLOOD ORDERAB LES Final Result [facility] [address] [place] [phone] * (ABNORMAL) Comprehensive Metabolic Panel (05/09/2025 7:04 PM EDT) Only the most recent of2 resultswithin the time period is included. Sodium 138 135 - 145 mmol/L [facility] Potassium 4.3 3.3 - 5.1 mmol/L [facility] Chloride 105 96 - 108 mmol/L [facility] Carbon Dioxide 24 22 - 29 mmol/L [facility] Anion Gap 13 12 - 20 [facility] Urea Nitrogen (BUN) 13 9 - 16 mg/dL [facility] Creatinine, Serum 0.82 0.5 - 1.4 mg/dL [facility] Creatinine Clr Calc Pharmacy 95.1 [facility] Comment:eGFR (calculated fro m the MDRD study equation) and eCrCl(calculated from the Cockcroft-Gault equation) are based ondifferent parameters and may not yield comparable results.If eCrCl result is absurd, please check patient'sheight/weight. Estimated Glomerular Filt Rate >60 [facility] Comment:Chronic Kidney Disea se: Estimated GFR < 60 mL/min/1.16v0Vpzqga Kidney Disease: Estimated GFR < 15 mL/min/1.73m2 Glucose 138(H) 60 - 115 mg/dL [facility] Calcium 8.8 8.4 - 10.2 mg/dL [facility] Bilirubin, Total 0.7 0.0 - 1.0 mg/dL [facility] Aspartate Amino Transferase 27 5 - 37 U/L [facility] Alanine Aminotransferase 27 0 - 40 U/L [facility] Total Protein 6.7 6.5 - 8.0 g/dL [facility] Albumin Level 4.1 3.5 - 5.0 g/dL [facility] Alkaline Phosphatase 72 39 - 117 U/L [facility] 05/09/2025 7:04 PM EDT 05/09/2025 7:09 PM EDT us Generic External Data Provider LAB BLOOD ORDERAB LES Final Result Performing Organization Address City/State/[facility] Co de Phone Number [facility] [address] [place], [place] [phone] * CT Hand w/ Contrast Right (05/09/2025 3:23 PM EDT) Anatomical Region Laterality Modality Upper Extremities, Hand Right Computed Tomography 05/09/2025 3:23 PM EDT Narrative 05/09/2025 3:25 PM EDT [place] [address] CT Scan Report Signed Patient: Adalberto Mari MR#: [id number] : 1970 Acct:[id number] Age/Sex: 54 / M ADM Date: 05/09/25 Loc: HO.ED Attending Dr: Ordering Physician: Nakia Hartley PA-C Date of Service: 05/09/25 Procedure(s): CT hand RT w IV con Accession Number(s): [id number] cc: Nakia Hartley PA-C; Silvia Fitzgerald MD Report Number: [id number]: Total DLP = 111.00 mGy-cm CLINICAL HISTORY: [...] 05/09/25 1524 DD/ 1523 TD/TT: 05/09/25 1523 [employer] Furnace Operator: Procedure Note Donotuseinterpreter, Image - 05/09/[address] [place] [address] [address] Scan Report Signed Patient: Adalberto Mari [facility]#: [id number] : 1970Acct:[id number] Age/Sex: 54 / MADM Date: 05/09/25 Loc: HO.ED Attending Dr: Ordering Physician: Nakia Hartley PA-C Date of Service: 05/09/25 Procedure(s): CT hand RT w IV con Accession Number(s): [id number] cc: Nakia Hartley PA-C; Silvia Fitzgerald MD Report Number: [id number]: Total DLP = 111.00 mGy-cm CLINICAL HISTORY: [...] 05/09/25 1524 DD/ 1523 TD/TT: 05/09/25 1523 [employer] Operator: [facility] External Provider IMG CT PROCEDURES Edited Result - Final * XR Hand 3+ Views Right (05/09/2025 12:57 PM EDT) Only the most recent of2 resultswithin the time period is included. Anatomical Region Laterality Modality Upper Extremities, Hand Right [facility] 05/09/2025 12:5 7 PM EDT Narrative 05/09/2025 12:59 PM EDT [address] [address] XRay Report Signed Patient: Adalberto Mari MR#: [id number] : 1970 Acct:[id number] Age/Sex: 54 / M ADM Date: 05/09/25 Loc: HO.ED Attending Dr: Ordering Physician: Nakia Hartley PA-C Date of Service: 05/09/25 Procedure(s): XR hand RT min 3V Accession Number(s): [id number] cc: Nakia Hartley PA-C; Silvia Fitzgerald MD [...] 05/09/25 1259 DD/ 1257 TD/TT: 05/09/25 1257 [employer] Operator: Procedure Note Donotuseinterpreter, Image - 05/09/2025 [place] [address] XRay Report Signed Patient: Adalberto Mari CMR#: [id number] : 1970Acct:[id number] Age/Sex: 54 / MADM Date: 05/09/25 Loc: HO.ED Attending Dr: Ordering Physician: Nakia Hartley PA-C Date of Service: 05/09/25 Procedure(s): XR hand RT min 3V Accession Number(s): [id number] cc: Nakia Hartley PA-C; Silvia Fitzgerald MD [...] 05/09/25 1259 DD/ 1257 TD/TT: 05/09/25 1257 [place] [employer] Operator: [facility] External Provider IMG XR PROCEDURES Edited Result - Final * HIV AB/AG (03/12/2020 4:40 PM EDT) HIV AG/AB NONREACTIVE NR [facility] ON LAB [...] of detection of this assay. The [facility] Supplemental Manager HIV Ag/Ab Combo assay result and supplemental assay results should be interpreted in conjunction with the patient's clinical presentation, history and other laboratory results. If the results are inconsistent with clinical evidence, additional testing is suggested to confirm the result. 03/12/2020 4:40 PM EDT Santos Haley MD HISTORICAL/NON ORDERABLE LABS Fi nal Result [facility] Anywhere [address] from Last 3 Months or Most Recently Relevant to Health Maintenance [facility] Care Teams Oxygen Tank Filler Relationship Specialty Start Date End Date Silvia Fitzgerald MD [address] [place] [phone] PCP - General Family Medicine 12/12/18
--- OUTSIDE RECORDS SUMMARY | 2025-05-20 10:57 | XMS_ITS | Encounter Summary ---
Author Organization [employer] [facility] Address [address] [facility] 7t [place] [address] Care Team Providers Care Maintenance Construction Helper Name Role Phone Silvia Fitzgerald MD Primary Care Provider + Encounter Details Date Type Department Care Team (Late Contact Info) Description 05/18/2025 Orders Only GENERIC EXTERNAL DATA DEPARTMENT Provider, Generic External Data Social History Tobacco Use Types Packs/Day Years [...] AM EDT documented as of this encounter Plan of Treatment Upcoming Encounters Date Type Department Care Team ([facility] Contact Info) Description 06/04/2025 10:45 AM EDT Office Visit [facility] MEDICINE [address] [place] [address] Silvia Fitzgerald MD [address] [place] [address] documented as of this encounter Procedures Procedure Name Priority Date/Time Associated Diagnosis Comments HOLD LAVENDER - POSSIBLE HEMATOLOGY Routine 05/18/2025 11:00 AM EDT CREATININE, SERUM Routine 05/18/2025 11: 00 AM EDT CREATINE KINASE, TOTAL Routine 05/18/2025 11:00 AM EDT documented in this encounter Results * Creatine Kinase, Total (05/18/2025 11:00 AM EDT) Creatine Kinase Total 103 38 - 174 U/L [facility] 05/18/2025 11:0 0 AM EDT 05/18/2025 1:17 PM EDT us Generic External Data Provider LAB BLOOD ORDERAB LES Final Result Performing Organization Address [facility] de Phone Number [facility] [address] [place] [address] [phone] * Creatinine, Serum (05/18/2025 11:00 AM EDT) Creatinine, Serum 0.79 0.5 - 1.4 mg/dL [facility] Estimated Glomerular Filt Rate >[address] [facility] Comment:Chronic Kidney Disea se: Estimated GFR < 60 mL/min/1.16g5Sscxba Kidney Disease: Estimated GFR < 15 mL/min/1.73m2 05/18/2025 11:0 0 AM EDT 05/18/2025 1:17 PM EDT Generic External Data Provider LAB BLOOD ORDERAB LES Final Result Performing Organization Address [facility] de Phone Number [facility] [address] [place] [phone] * Hold Lavender - Possible Hematology (05/18/2025 11:00 AM EDT) Hold Lavender - Possible Hematololgy SEE NOTE [facility] Comment:Specimen will be hel d untested for 8 hours. Call Hematologyif testing is desired. 05/18/2025 11:0 0 AM EDT 05/18/2025 1:17 PM EDT Generic External Data Provider HISTORICAL/NON OR DERABLE LABS Final Result Performing Organization Address [facility] Co de Phone Number [facility] [address] [place] [address] [phone] documented in this encounter Visit Diagnoses Not on filedocumented in this encounter Care Teams Maintenance Construction Helper Relationship Specialty Start Date End Date Silvia Fitzgerald MD [address] [place] [phone] PCP - General Family Medicine 12/12/18 documented as of this encounter
== END 2025-05-20 11:15 | disposition home or self-care (01) ==
LOC: HO.HOS 10:09
PROVIDERS: PCP Internal Medicine; Visit Provider Orthopaedic Surgery
DX: M86.9 Osteomyelitis, unspecified (principal); R78.81 Bacteremia; B95.61 Methicillin susceptible Staphylococcus aureus infection as the cause of diseases classified elsewhere
CPT/HCPCS: 99024

== ENCOUNTER → 2025-05-20 10:12 | Outpatient (BNV) | payer MEDICAID, SELFPAY | PROVIDERS: Visit Provider Radiology Diagnostic Radiology | DX: R22.31 Localized swelling, mass and lump, right upper limb (principal); M89.541 Osteolysis, right hand | CPT/HCPCS: 73130 ==

== ENCOUNTER 2025-05-20 10:41 | Outpatient (REF) | payer MEDICAID, SELFPAY ==
--- NOTE | ~2025-05-20 | XR_ITS ---
CLINICAL HISTORY: M79.641 - Pain in right hand Exam: AP, lateral, and oblique views of the right hand. Comparison: Serial radiographs dating from July 27, 2023 through May 09, 2025. CT of the right hand from May 09, 2025. Findings: Continued osteolysis of the distal tuft of the distal phalanx of the thumb. There is overlying loss of the dorsal soft tissue of the tip of the thumb. The overall appearance is similar to that seen on the patient's prior study. There is soft tissue swelling more proximally within the thumb. Multifocal degenerative changes seen throughout the hand and wrist, not appreciably changed compared to prior study. 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 This document has been electronically signed by: Hayder Vazquez MD on 05/21/2025 09:20:35
--- OUTSIDE RECORDS SUMMARY | 2025-05-21 12:06 | XMS_ITS | Encounter Summary ---
Author Organization [employer] Address [address] [facility] 7t [place] [address] Care Team Providers Care Furnace Checker Name Role Phone Silvia Fitzgerald MD Primary Care Provider + Reason for Visit * Reason Comments Transition Of Care (Tcm) HDF scheduled Encounter Details Date Type Department Care Team (Late st Contact Info) Description 05/18/2025 Patient Outreach [facility] MEDICINE [address] [place] [phone] Silvia Fitzgerald MD [address] [place], [place] [phone] Transition Of Care (Tcm) (HDF scheduled) Social [...] Admission/Visit 05/09/25 Date of Discharge 05/15/25 Facility [facility] Diagnosis Osteomyelitis Disposition Discharged Home Follow-Up [...] been scheduled for 06/04/2025 at10:[address] [facility] Insurance verified prior to scheduling. Patient [...] Wednesdays, and Walk-In Urgent Care Located in [facility] of [facility]. Patient provided with after-hours line for [facility], , which offer night time triage service and option to transfer to special forces communications sergeant provider if needed. [facility] discharge has been scanned into patient chart. documented in this encounter Plan of Treatment Upcoming Encounters Date Type Department Care Team (Late st Contact Info) Description 06/04/2025 10:45 AM EDT Office Visit [facility] MEDICINE [address] [place] [address] [phone] Silvia Fitzgerald MD [address] [place] [phone] documented as of this encounter Visit Diagnoses Not on filedocumented in this encounter Care Teams Furnace Checker Relationship Specialty Start Date End Date Silvia Fiztgerald MD [address] [place] [phone] PCP - General Family Medicine 12/12/18 documented as of this encounter
--- OUTSIDE RECORDS SUMMARY | 2025-05-21 12:06 | XMS_ITS | Encounter Summary ---
Author Organization [employer] [facility] Address [address] [facility] 7t [place] [address] Care Team Providers Care Ruffling Hemmer Automatic Name Role Phone Silvia Fitzgerald MD Primary [...] Encounters Date Type Department Care Team (Late Contact Info) Description 06/04/2025 10:45 AM EDT Office Visit [facility] MEDICINE [address] [place] [address] Silvia Fitzgerald MD [address] [place] [address] documented as of this encounter Procedures Procedure Name Priority Date/Time Associated Diagnosis Comments HOLD LAVENDER - POSSIBLE HEMATOLOGY Routine 05/18/2025 11:00 AM EDT CREATININE, SERUM Routine 05/18/2025 11: 00 AM EDT CREATINE KINASE, TOTAL Routine 05/18/2025 11:00 AM EDT documented in this encounter Results * Creatine Kinase, Total (05/18/2025 11:00 AM EDT) Creatine Kinase Total 103 38 - 174 U/L [facility] 05/18/2025 11:0 0 AM EDT 05/18/2025 1:17 PM EDT us Generic External Data Provider LAB BLOOD ORDERAB LES Final Result Performing Organization Address [facility] de Phone Number [facility] [address] [place] [address] [phone] * Creatinine, Serum (05/18/2025 11:00 AM EDT) Creatinine, Serum 0.79 0.5 - 1.4 mg/dL [facility] Estimated Glomerular Filt Rate >60 [facility] Comment:Chronic Kidney Disea se: Estimated GFR < 60 mL/min/1.36i8Eourws Kidney Disease: Estimated GFR < 15 mL/min/1.73m2 05/18/2025 11:0 0 AM EDT 05/18/2025 1:17 PM EDT Generic External Data Provider LAB BLOOD ORDERAB LES Final Result Performing Organization Address [facility] de Phone Number [facility] [address] [place] [phone] * Hold Lavender - Possible Hematology (05/18/2025 11:00 AM EDT) Hold Lavender - Possible Hematololgy SEE NOTE [facility] Comment:Specimen will be hel d untested for 8 hours. Call Hematologyif testing is desired. 05/18/2025 11:0 0 AM EDT 05/18/2025 1:17 PM EDT Generic External Data Provider HISTORICAL/NON OR DERABLE LABS Final Result Performing Organization Address [facility] Co de Phone Number [facility] [address] [place] [address] [phone] documented in this encounter Visit Diagnoses Not on filedocumented in this encounter Care Teams Ruffling Hemmer Automatic Relationship Specialty Start Date End Date Silvia Fitzgerald MD [address] [place] [phone] PCP - General Family Medicine 12/12/18 documented as of this encounter
--- OUTSIDE RECORDS SUMMARY | 2025-05-21 12:07 | XMS_ITS | Clinical Summary ---
Author Organization [employer] Address [address] [facility] 7t [place] [address] Care Team Providers Care Silk Screen Operator Name Role Phone Silvia Fitzgerald MD [...] Provider, Generic External Data 05/18/2025 Patient Outreach [facility] MEDICINE [address] [place] [phone] Silvia Fitzgerald MD Transition Of Care (Tcm) (HDF scheduled) 05/09/2025 Orders Only [facility] External Provider, [facility] 03/21/2025 Orders Only [facility] External Provider, [facility] from Last 3 Months Immunizations Immunization Administration [...] Description 06/04/2025 10:45 AM EDT Office Visit [facility] MEDICINE [address] [place] [address] Silvia Fitzgerald MD [address] [place] [address] Health Maintenance Due Date Last Done Comments [...] Hold Lavender - Possible Hematololgy SEE NOTE [facility] Comment:Specimen will be hel d untested for 8 hours. Call Hematologyif testing is desired. 05/18/2025 11:0 0 AM EDT 05/18/2025 1:17 PM EDT us Generic External Data Provider HISTORICAL/NON OR DERABLE LABS Final Result Performing Organization Address [facility] Co de Phone Number [facility] [address] [place] [address] [phone] * Creatinine, Serum (05/18/2025 11:00 AM EDT) Pathologist [facility] Creatinine, Serum 0.79 0.5 - 1.4 mg/dL [facility] Estimated Glomerular Filt Rate >60 [facility] Comment:Chronic Kidney Disea se: Estimated GFR < 60 mL/min/1.78e9Recebi Kidney Disease: Estimated GFR < 15 mL/min/1.73m2 05/18/2025 11:0 0 AM EDT 05/18/2025 1:17 PM EDT us Generic External Data Provider LAB BLOOD ORDERAB LES Final Result Performing Organization Address [facility] Co de Phone Number [facility] [address] [place] [address] [phone] * Creatine Kinase, Total (05/18/2025 11:00 AM EDT) Pathologist [facility] Creatine Kinase Total 103 38 - 174 U/L [facility] 05/18/2025 11:0 0 AM EDT 05/18/2025 1:17 PM EDT us Generic External Data Provider LAB BLOOD ORDERAB LES Final Result Performing Organization Address [facility] Co de Phone Number [facility] [address] [place] [address] [phone] * XR Chest 1 View (05/14/2025 3:20 PM EDT) Anatomical Region Laterality Modality Chest Radiographic Susan ging 05/14/2025 3:20 PM EDT Narrative 05/14/2025 3:35 PM EDT [address] [address] XRay Report Signed Patient: Adalberto Mari MR#: [id number] : 1970 Acct:[id number] Age/Sex: 54 / M ADM Date: 05/09/25 Loc: HO.S3 360-[address]: En DUFFY Ordering Physician: En Carlisle Date of Service: 05/14/25 Procedure(s): XR chest 1V Accession Number(s): [id number] cc: En Carlisle; Silvia Fitzgerald MD EXAMINATION: [...] 05/14/25 1532 DD/ 1520 TD/TT: 05/14/25 1529 Production Stage Manager: Procedure Note Donotuseinterpreter, Image - 05/14/[address] [address] XRay Report Signed Patient: Adalberto Mari CMR#: [id number] : 1970Acct:[id number] Age/Sex: 54 / MADM Date: 05/09/25 Loc: HO.S3 360-[address]: En DUFFY Ordering Physician: En Carlisle Date of Service: 05/14/25 Procedure(s): XR chest 1V Accession Number(s): [id number] cc: En Carlisle; Silvia Fitzgerald MD EXAMINATION: [...] 05/14/25 1532 DD/ 1520 TD/TT: 05/14/25 1529 Production Stage Manager: [facility] External Provider IMG XR PROCEDURES Final Result * (ABNORMAL) CBC auto differential (05/09/2025 7:04 PM EDT) Only the most recent of2 resultswithin the time period is included. White Blood Count 5.4 4.8 - 10.8 X10*3/uL [facility] Red Blood Count 4.12(L) 4.60 - 5.80 X10*6/uL [facility] Hemoglobin 13.0(L) 14.0 - 18.0 g/dl [facility] Hematocrit 37.5(L) 42.0 - 52.0 % [facility] Mean Corpuscular Volume 91.0 80.0 - 98.0 fL [facility] Mean Corpuscular Hemoglobin 31.6 27.0 - 33.0 pg [facility] Mean Corpuscular HGB Conc 34.7 31.0 - 36.0 g/dl [facility] Red Cell Distribution Width 13.7 11.0 - 16.0 % [facility] Platelet Count 174 160 - 400 X10*3/uL [facility] Mean Platelet Volume 8.6(L) 9.4 - 12.4 fL [facility] Neutrophils Percent Auto 64.7 45 - 73 % [facility] Imm Gran Pct Auto 0.2 0.0 - 0.4 % [facility] Lymphocytes Percent Auto 24.4 20 - 40 % [facility] Monocytes Percent Auto 6.8 2 - 11 % [facility] Eosinophils Percent Auto 3.5 0 - 4 % [facility] Basophils Percent Auto 0.4 0 - 2 % [facility] NRBC Pct Auto 0.0 0.0 - 0.2 /100WBC [facility] Neutrophils Absolute Auto 3.5 2.0 - 8.3 x10*3/uL [facility] Imm Gran Abs Auto 0.01 0.00 - 0.03 X10*3/uL [facility] Lymphocytes Absolute Auto 1.3 1.2 - 4.9 X10*3/uL [facility] Monocytes Absolute Auto 0.4 0.1 - 1.2 X10*3/uL [facility] Eosinophils Absolute Auto 0.2 0.0 - 0.4 X10*3/uL [facility] Basophils Absolute Auto 0.0 0.0 - 0.2 X10*3/uL [facility] NRBC Abs Auto 0.000 0.0 - 0.012 X10*3/uL [facility] 05/09/2025 7:04 PM EDT 05/09/2025 7:09 PM EDT us Generic External Data Provider LAB BLOOD ORDERAB LES Final Result [facility] [address] [place] [address] [phone] * Sed Rate by Amy Murdock (05/09/2025 7:04 PM EDT) Only the most recent of2 resultswithin the time period is included. Erythrocyte Sedimentation Rate 10 0 - 15 MM/HR [facility] Comment:Patients with polycy themia and many hemoglobin abnormalitiesmay have depressed sed rates whereas patients with anemiamay have elevated sed rates. 05/09/2025 7:04 PM EDT 05/09/2025 7:09 PM EDT Generic External Data Provider LAB BLOOD ORDERAB LES Final Result Performing Organization Address [facility] Co de Phone Number [facility] [address] [place] [phone] * C-reactive Protein (05/09/2025 7:04 PM EDT) Only the most recent of2 resultswithin the time period is included. C Reactive Protein 0.23 < or = 0.50 mg/dL [facility] 05/09/2025 7:04 PM EDT 05/09/2025 7:09 PM EDT Generic External Data Provider LAB BLOOD ORDERAB LES Final Result Performing Organization Address [facility] Co de Phone Number [facility] [address] [place] [phone] * Magnesium (05/09/2025 7:04 PM EDT) Magnesium 1.9 1.6 - 2.6 mg/dL [facility] 05/09/2025 7:04 PM EDT 05/09/2025 7:09 PM EDT Generic External Data Provider LAB BLOOD ORDERAB LES Final Result Performing Organization Address [facility] de Phone Number [facility] [address] [place] [phone] * Lactic Acid (05/09/2025 7:04 PM EDT) Lactic Acid 1.5 0.5 - 2.0 mmol/L [facility] 05/09/2025 7:04 PM EDT 05/09/2025 7:09 PM EDT us Generic External Data Provider LAB BLOOD ORDERAB LES Final Result [facility] [address] [place] [address] [phone] * (ABNORMAL) Comprehensive Metabolic Panel (05/09/2025 7:04 PM EDT) Only the most recent of2 resultswithin the time period is included. Sodium 138 135 - 145 mmol/L [facility] Potassium 4.3 3.3 - 5.1 mmol/L [facility] Chloride 105 96 - 108 mmol/L [facility] Carbon Dioxide 24 22 - 29 mmol/L [facility] Anion Gap 13 12 - 20 [facility] Urea Nitrogen (BUN) 13 9 - 16 mg/dL [facility] Creatinine, Serum 0.82 0.5 - 1.4 mg/dL [facility] Creatinine Clr Calc Pharmacy 95.1 [facility] Comment:eGFR (calculated fro m the MDRD study equation) and eCrCl(calculated from the Cockcroft-Gault equation) are based ondifferent parameters and may not yield comparable results.If eCrCl result is absurd, please check patient'sheight/weight. Estimated Glomerular Filt Rate >60 [facility] Comment:Chronic Kidney Disea se: Estimated GFR < 60 mL/min/1.46f5Cxtqfo Kidney Disease: Estimated GFR < 15 mL/min/1.73m2 Glucose 138(H) 60 - 115 mg/dL [facility] Calcium 8.8 8.4 - 10.2 mg/dL [facility] Bilirubin, Total 0.7 0.0 - 1.0 mg/dL [facility] Aspartate Amino Transferase 27 5 - 37 U/L [facility] Alanine Aminotransferase 27 0 - 40 U/L [facility] Total Protein 6.7 6.5 - 8.0 g/dL [facility] Albumin Level 4.1 3.5 - 5.0 g/dL [facility] Alkaline Phosphatase 72 39 - 117 U/L [facility] 05/09/2025 7:04 PM EDT 05/09/2025 7:09 PM EDT us Generic External Data Provider LAB BLOOD ORDERAB LES Final Result Performing Organization Address City/State/[facility] Co de Phone Number [facility] [address] [place], [place] [phone] * CT Hand w/ Contrast Right (05/09/2025 3:23 PM EDT) Anatomical Region Laterality Modality Upper Extremities, Hand Right Computed Tomography 05/09/2025 3:23 PM EDT Narrative 05/09/2025 3:25 PM EDT [place] [address] [address] Scan Report Signed Patient: Adalberto Mari MR#: [id number] : 1970 Acct:[id number] Age/Sex: 54 / M ADM Date: 05/09/25 Loc: HO.ED Attending Dr: Ordering Physician: Nakia Hartley PA-C Date of Service: 05/09/25 Procedure(s): CT hand RT w IV con Accession Number(s): [id number] cc: Nakia Hartley PA-C; Silvia Fitzgerald MD Report Number: [id number]: Total DLP = 111.00 mGy-cm CLINICAL HISTORY: [...] 05/09/25 1524 DD/ 1523 TD/TT: 05/09/25 1523 Production Stage Manager: Procedure Note Donotuseinterpreter, Image - 05/09/[address] [place] [address] [address] Scan Report Signed Patient: Adalberto Mari [facility]#: [id number] : 1970Acct:[id number] Age/Sex: 54 / MADM Date: 05/09/25 Loc: HO.ED Attending Dr: Ordering Physician: Nakia Hartley PA-C Date of Service: 05/09/25 Procedure(s): CT hand RT w IV con Accession Number(s): [id number] cc: Nakia Hartley PA-C; Silvia Fitzgerald MD Report Number: [id number]: Total DLP = 111.00 mGy-cm CLINICAL HISTORY: [...] 05/09/25 1524 DD/ 1523 TD/TT: 05/09/25 1523 Production Stage Manager: [facility] External Provider IMG CT PROCEDURES Edited Result - Final * XR Hand 3+ Views Right (05/09/2025 12:57 PM EDT) Only the most recent of2 resultswithin the time period is included. Anatomical Region Laterality Modality Upper Extremities, Hand Right Radiogra [facility] Imaging 05/09/2025 12:5 7 PM EDT Narrative 05/09/2025 12:59 PM EDT [address] [address] XRay Report Signed Patient: Adalberto Mari MR#: [id number] : 1970 Acct:[id number] Age/Sex: 54 / M ADM Date: 05/09/25 Loc: HO.ED Attending Dr: Ordering Physician: Nakia Hartley PA-C Date of Service: 05/09/25 Procedure(s): XR hand RT min 3V Accession Number(s): [id number] cc: Nakia Hartley PA-C; Silvia Fitzgerald MD [...] 05/09/25 1259 DD/ 1257 TD/TT: 05/09/25 1257 Production Stage Manager: Procedure Note Donotuseinterpreter, Image - 05/09/2025 [place] [address] XRay Report Signed Patient: Adalberto Mari CMR#: [id number] : 1970Acct:[id number] Age/Sex: 54 / MADM Date: 05/09/25 Loc: HO.ED Attending Dr: Ordering Physician: Nakia Hartley PA-C Date of Service: 05/09/25 Procedure(s): XR hand RT min 3V Accession Number(s): [id number] cc: Nakia Hartley PA-C; Silvia Fitzgerald MD [...] 05/09/25 1259 DD/ 1257 TD/TT: 05/09/25 1257 Production Stage Manager: [facility] External Provider IMG XR PROCEDURES Edited [...] of detection of this assay. The [employer] HIV Ag/Ab Combo assay result and supplemental assay results should be interpreted in conjunction with the patient's clinical presentation, history and other laboratory results. If the results are inconsistent with clinical evidence, additional testing is suggested to confirm the result. 03/12/2020 4:40 PM EDT Santos Haley MD HISTORICAL/NON ORDERABLE LABS Fi nal Result [facility] Anywhere [address] from Last 3 Months or Most Recently Relevant to Health Maintenance [facility] Care Teams Silk Screen Operator Relationship Specialty Start Date End Date Silvia Fitzgerald MD [address] [place] [phone] PCP - General Family Medicine 12/12/18
== END 2025-05-20 10:42 | disposition home or self-care (01) ==
LOC: HO.HOSX 10:41
PROVIDERS: Visit Provider Orthopaedic Surgery
DX: M86.9 Osteomyelitis, unspecified (principal); M79.641 Pain in right hand; R78.81 Bacteremia; B95.61 Methicillin susceptible Staphylococcus aureus infection as the cause of diseases classified elsewhere
CPT/HCPCS: 73130; 99212

== ENCOUNTER 2025-05-25 13:16 | Outpatient (REF) | payer MEDICAID, SELFPAY ==
--- OUTSIDE RECORDS SUMMARY | 2025-05-25 13:20 | XMS_ITS | Encounter Summary ---
Author Organization [employer] Address [address] [facility] 7t [place] [address] Care Team Providers Care Director Of Student Aid Name Role Phone Silvia Fitzgerald MD Primary Care Provider + Reason for Visit * Reason Onset Date Comments appt reschedule 05/21/2025 Encounter Details Date Type Department Care Team (Late Contact Info) Description 05/21/2025 Telephone [facility] MEDICINE [address] [place], [place] [phone] Kelsea Pablo RN [address] [place] [address] appt reschedule Social History Tobacco Use Types Packs/Day Years [...] as of this encounter Miscellaneous Notes * Telephone Encounter - Kelsea Pablo RN - 05/21/2025 4:28 PM EDT TC placed to pt. Informed pt. Provider will be OUT for previously scheduled HDF 06/04/25, pt. Agreesto r/s to the following week 06/11/25 at 10:45am with PCP documented in this encounter Plan of Treatment Upcoming Encounters Date Type Department Care Team (Late Contact Info) Description 06/11/2025 10:45 AM EDT Office Visit [facility] MEDICINE [address] [place] [address] Silvia Fitzgerald MD [address] [place] [address] documented as of this encounter Visit Diagnoses Not on filedocumented in this encounter Care Teams Director Of Student Aid Relationship Specialty Start Date End Date Silvia Fitzgerald MD [address] [place] [phone] PCP - General Family Medicine 12/12/18 documented as of this encounter
--- OUTSIDE RECORDS SUMMARY | 2025-05-25 13:20 | XMS_ITS | Clinical Summary ---
Author Organization [employer] Address [address] [facility] 7t [place] [address] Care Team Providers Care Branch Lending Manager Name Role Phone Silvia Fitzgerald MD [...] Encounters Date Type Department Care Team Description 05/21/2025 Telephone [facility] [address] [place] [phone] Kelsea Pablo RN appt reschedule 05/18/2025 Orders Only GENERIC EXTERNAL DATA DEPARTMENT Provider, Generic External Data 05/18/2025 Patient Outreach [facility] [address] [place] [phone] Silvia Fitzgerald MD Transition Of Care (Tcm) (HDF scheduled) 05/09/2025 Orders Only [facility] External Provider, [facility] 03/21/2025 Orders Only [facility] External Provider, [facility] from Last 3 Months Immunizations Immunization [...] Care Team (Late st Contact Info) Description 06/11/2025 10:45 AM EDT Office Visit [facility] [address] [place] [address] Silvia Fitzgerald MD [address] [place] [address] Health Maintenance Due Date Last Done Comments [...] Hold Lavender - Possible Hematololgy SEE NOTE [facility] Comment:Specimen will be hel d untested for 8 hours. Call Hematologyif testing is desired. 05/18/2025 11:0 0 AM EDT 05/18/2025 1:17 PM EDT us Generic External Data Provider HISTORICAL/NON OR DERABLE LABS Final Result Performing Organization Address [facility]/ZIP Co de Phone Number [facility] [address] [place] [phone] * Creatinine, Serum (05/18/2025 11:00 AM EDT) Pathologist [facility] Creatinine, Serum 0.79 0.5 - 1.4 mg/dL [facility] Estimated Glomerular Filt Rate >60 [facility] Comment:Chronic Kidney Disea se: Estimated GFR < 60 mL/min/1.23e2Cklefp Kidney Disease: Estimated GFR < 15 mL/min/1.73m2 05/18/2025 11:0 0 AM EDT 05/18/2025 1:17 PM EDT us Generic External Data Provider LAB BLOOD ORDERAB LES Final Result Performing Organization Address City/[facility]/ZIP Co de Phone Number [facility] [address] [place] [phone] * Creatine Kinase, Total (05/18/2025 11:00 AM EDT) Pathologist [facility] Creatine Kinase Total 103 38 - 174 U/L [facility] 05/18/2025 11:0 0 AM EDT 05/18/2025 1:17 PM EDT Generic External Data Provider LAB BLOOD ORDERAB LES Final Result Performing Organization Address [facility]/ZIP Co de Phone Number [facility] [address] [place] [phone] * XR Chest 1 View (05/14/2025 3:20 PM EDT) Anatomical Region Laterality Modality Chest Radiographic Susan ging 05/14/2025 3:20 PM EDT Narrative 05/14/2025 3:35 PM EDT [address] [address] XRay Report Signed Patient: Adalberto Mari MR#: [id number] : 1970 Acct:[id number] Age/Sex: 54 / M ADM Date: 05/09/25 Loc: HO.S3 360-[address]: En DUFFY Ordering Physician: En Carlisle Date of Service: 05/14/25 Procedure(s): XR chest 1V Accession Number(s): [id number] cc: En Carlisle; Silvia Fitzgerald MD EXAMINATION: [...] 05/14/25 1532 DD/ 1520 TD/TT: 05/14/25 1529 Farm Management Adviser: Procedure Note Donotuseinterpreter, Image - 05/14/[address] [address] XRay Report Signed Patient: Adalberto Mari CMR#: [id number] : 1970Acct:[id number] Age/Sex: 54 / MADM Date: 05/09/25 Loc: HO.S3 360-[address]: En DUFFY Ordering Physician: En Carlisle Date of Service: 05/14/25 Procedure(s): XR chest 1V Accession Number(s): [id number] cc: En Carlisle; Silvia Fitzgerald MD EXAMINATION: [...] 05/14/25 1532 DD/ 1520 TD/TT: 05/14/25 1529 Farm Management Adviser: [facility] External Provider IMG XR PROCEDURES Final Result * (ABNORMAL) CBC auto differential (05/09/2025 7:04 PM EDT) Only the most recent of2 resultswithin the time period is included. White Blood Count 5.4 4.8 - 10.8 X10*3/uL [facility] Red Blood Count 4.12(L) 4.60 - 5.80 X10*6/uL [facility] Hemoglobin 13.0(L) 14.0 - 18.0 g/dl [facility] Hematocrit 37.5(L) 42.0 - 52.0 % [facility] Mean Corpuscular Volume 91.0 80.0 - 98.0 fL [facility] Mean Corpuscular Hemoglobin 31.6 27.0 - 33.0 pg [facility] Mean Corpuscular HGB Conc 34.7 31.0 - 36.0 g/dl [facility] Red Cell Distribution Width 13.7 11.0 - 16.0 % [facility] Platelet Count 174 160 - 400 X10*3/uL [facility] Mean Platelet Volume 8.6(L) 9.4 - 12.4 fL [facility] Neutrophils Percent Auto 64.7 45 - 73 % [facility] Imm Gran Pct Auto 0.2 0.0 - 0.4 % [facility] Lymphocytes Percent Auto 24.4 20 - 40 % [facility] Monocytes Percent Auto 6.8 2 - 11 % [facility] Eosinophils Percent Auto 3.5 0 - 4 % [facility] Basophils Percent Auto 0.4 0 - 2 % [facility] NRBC Pct Auto 0.0 0.0 - 0.2 /100WBC [facility] Neutrophils Absolute Auto 3.5 2.0 - 8.3 x10*3/uL [facility] Imm Gran Abs Auto 0.01 0.00 - 0.03 X10*3/uL [facility] Lymphocytes Absolute Auto 1.3 1.2 - 4.9 X10*3/uL [facility] Monocytes Absolute Auto 0.4 0.1 - 1.2 X10*3/uL [facility] Eosinophils Absolute Auto 0.2 0.0 - 0.4 X10*3/uL [facility] Basophils Absolute Auto 0.0 0.0 - 0.2 X10*3/uL [facility] NRBC Abs Auto 0.000 0.0 - 0.012 X10*3/uL [facility] 05/09/2025 7:04 PM EDT 05/09/2025 7:09 PM EDT us Generic External Data Provider LAB BLOOD ORDERAB LES Final Result [facility] [address] [place] [phone] * Sed Rate by Modified Collette (05/09/2025 7:04 PM EDT) Only the most recent of2 resultswithin the time period is included. Erythrocyte Sedimentation Rate 10 0 - 15 MM/HR [facility] Comment:Patients with polycy themia and many hemoglobin abnormalitiesmay have depressed sed rates whereas patients with anemiamay have elevated sed rates. 05/09/2025 7:04 PM EDT 05/09/2025 7:09 PM EDT Generic External Data Provider LAB BLOOD ORDERAB LES Final Result Performing Organization Address [facility] Co de Phone Number [facility] [address] [place] [phone] * C-reactive Protein (05/09/2025 7:04 PM EDT) Only the most recent of2 resultswithin the time period is included. C Reactive Protein 0.23 < or = 0.50 mg/dL [facility] 05/09/2025 7:04 PM EDT 05/09/2025 7:09 PM EDT Generic External Data Provider LAB BLOOD ORDERAB LES Final Result Performing Organization Address [facility] Co de Phone Number [facility] [address] [place] [phone] * Magnesium (05/09/2025 7:04 PM EDT) Magnesium 1.9 1.6 - 2.6 mg/dL [facility] 05/09/2025 7:04 PM EDT 05/09/2025 7:09 PM EDT Generic External Data Provider LAB BLOOD ORDERAB LES Final Result Performing Organization Address [facility] Co de Phone Number [facility] [address] [place] [phone] * Lactic Acid (05/09/2025 7:04 PM EDT) Lactic Acid 1.5 0.5 - 2.0 mmol/L [facility] 05/09/2025 7:04 PM EDT 05/09/2025 7:09 PM EDT us Generic External Data Provider LAB BLOOD ORDERAB LES Final Result [facility] [address] [place] [phone] * (ABNORMAL) Comprehensive Metabolic Panel (05/09/2025 7:04 PM EDT) Only the most recent of2 resultswithin the time period is included. Pathologist [facility] Sodium 138 135 - 145 mmol/L [facility] Potassium 4.3 3.3 - 5.1 mmol/L [facility] Chloride 105 96 - 108 mmol/L [facility] Carbon Dioxide 24 22 - 29 mmol/L [facility] Anion Gap 13 12 - 20 [facility] Urea Nitrogen (BUN) 13 9 - 16 mg/dL [facility] Creatinine, Serum 0.82 0.5 - 1.4 mg/dL [facility] Creatinine Clr Calc Pharmacy 95.1 [facility] Comment:eGFR (calculated fro m the MDRD study equation) and eCrCl(calculated from the Cockcroft-Gault equation) are based ondifferent parameters and may not yield comparable results.If eCrCl result is absurd, please check patient'sheight/weight. Estimated Glomerular Filt Rate >60 [facility] Comment:Chronic Kidney Disea se: Estimated GFR < 60 mL/min/1.35a0Pbdguj Kidney Disease: Estimated GFR < 15 mL/min/1.73m2 Glucose 138(H) 60 - 115 mg/dL [facility] Calcium 8.8 8.4 - 10.2 mg/dL [facility] Bilirubin, Total 0.7 0.0 - 1.0 mg/dL [facility] Aspartate Amino Transferase 27 5 - 37 U/L [facility] Alanine Aminotransferase 27 0 - 40 U/L [facility] Total Protein 6.7 6.5 - 8.0 g/dL [facility] Albumin Level 4.1 3.5 - 5.0 g/dL [facility] Alkaline Phosphatase 72 39 - 117 U/L [facility] 05/09/2025 7:04 PM EDT 05/09/2025 7:09 PM EDT us Generic External Data Provider LAB BLOOD ORDERAB LES Final Result [facility] [address] [place] [phone] * CT Hand w/ Contrast Right (05/09/2025 3:23 PM EDT) Anatomical Region Laterality Modality Upper Extremities, Hand Right Computed Tomography 05/09/2025 3:23 PM EDT Narrative 05/09/2025 3:25 PM EDT [place] [address] CT Scan Report Signed Patient: Adalberto Mari MR#: [id number] : 1970 Acct:[id number] Age/Sex: 54 / M ADM Date: 05/09/25 Loc: .ED Attending Dr: Ordering Physician: Nakia Hartley PA-C Date of Service: 05/09/25 Procedure(s): CT hand RT w IV con Accession Number(s): [id number] cc: Nakia Hartley PA-C; Silvia Fitzgerald MD Report Number: [id number]: Total DLP = 111.00 mGy-cm CLINICAL HISTORY: [...] 05/09/25 1524 DD/ 1523 TD/TT: 05/09/25 1523 Farm Management Adviser: Procedure Note Donotuseinterpreter, Image - 05/09/[address] [place] [address] [address] Scan Report Signed Patient: Adalberto Mari CMR#: [id number] : 1970Acct:[id number] Age/Sex: 54 / MADM Date: 05/09/25 Loc: HO.ED Attending Dr: Ordering Physician: Nakia Hartley PA-C Date of Service: 05/09/25 Procedure(s): CT hand RT w IV con Accession Number(s): [id number] cc: Nakia Hartley PA-C; Silvia Fitzgerald MD Report Number: [id number]: Total DLP = 111.00 mGy-cm CLINICAL HISTORY: [...] 05/09/25 1524 DD/ 1523 TD/TT: 05/09/25 1523 Farm Management Adviser: [facility] External Provider IMG CT PROCEDURES Edited Result - Final * XR Hand 3+ Views Right (05/09/2025 12:57 PM EDT) Only the most recent of2 resultswithin the time period is included. Anatomical Region Laterality Modality Upper Extremities, Hand Right Radiogra phic Imaging 05/09/2025 12:5 7 PM EDT Narrative 05/09/2025 12:59 PM EDT [address] [address] XRay Report Signed Patient: Adalberto Mari MR#: [id number] : 1970 Acct:[id number] Age/Sex: 54 / M ADM Date: 05/09/25 Loc: HO.ED Attending Dr: Ordering Physician: Nakia Hartley PA-C Date of Service: 05/09/25 Procedure(s): XR hand RT min 3V Accession Number(s): [id number] cc: Nakia Hartley PA-C; Silvia Fitzgerald MD [...] 05/09/25 1259 DD/ 1257 TD/TT: 05/09/25 1257 Farm Management Adviser: Procedure Note Donotuseinterpreter, Image - 05/09/2025 [place] [address] XRay Report Signed Patient: Adalberto Mari [facility]#: [id number] : 1970Acct:[id number] Age/Sex: 54 / MADM Date: 05/09/25 Loc: HO.ED Attending Dr: Ordering Physician: Nakia Hartley PA-C Date of Service: 05/09/25 Procedure(s): XR hand RT min 3V Accession Number(s): [id number] cc: Nakia Hartley PA-C; Silvia Fitzgerald MD [...] 05/09/25 1259 DD/ 1257 TD/TT: 05/09/25 1257 Farm Management Adviser: [facility] External Provider IMG XR PROCEDURES Edited Result [...] of detection of this assay. The [employer] HIV Ag/Ab Combo assay result and supplemental assay results should be interpreted in conjunction with the patient's clinical presentation, history and other laboratory results. If the results are inconsistent with clinical evidence, additional testing is suggested to confirm the result. 03/12/2020 4:40 PM EDT Santos Haley MD HISTORICAL/NON ORDERABLE LABS Fi nal Result [facility] [address] from Last 3 Months or Most Recently Relevant to Health Maintenance Insurance [facility] C3 Care Teams Branch Lending Manager Relationship Specialty Start Date End Date Silvia Fitzgerald MD [address] [place] [phone] PCP - General Family Medicine 12/12/18
[2025-05-25 13:56] LABS: Estimated Glomerular Filt Rate > 60
== END 2025-05-25 13:17 | disposition home or self-care (01) ==
LOC: HO.HVNA 13:16
PROVIDERS: Visit Provider Internal Medicine
DX: M86.9 Osteomyelitis, unspecified (principal)
CPT/HCPCS: 36415; 82550; 82565

== ENCOUNTER 2025-05-26 09:36 | Outpatient (AMB) | payer MEDICAID, SELFPAY ==
--- NOTE | 2025-05-26 09:45 | MHC.OFFVIS ---
Intake Visit Reasons: PO- I&D Rt thumb w/ osteoyelitis 05/11/25 AR Intake Note: Adalberto is a 54 year old man who presents today post operatively status post right thumb I&D of distal aspect of bone of the distal phalanx osteomyelitis, DOS: 05/11/[address] Marlene Harrington. At his last visit he was advise to continue ABX through his PICC line, work on gentle ROM and keep area clean. Currently states he has concerns due to having cough. States since he started on his ABX he has been coughing, he doesn't feel sick, states its just cough. Patient reports he has soreness in his thumb but doing well over all. Allergies No Known Allergies (No Known Allergies*) Allergy (Verified 05/20/25 10:35) HPI HPI PO- I&D Rt thumb w/ osteoyelitis 05/11/25 AR: Details: Adalberto is a 54 year old right hand dominant man who presents S/p right thumb I&D, DOS: 05/11/25. He has osteomyelitis to the tip of his right thumb, following an injury on ~03/07/25. He currently has a PICC line for IV Abx and is following with Dr. Puente for this. He says his thumb is already feeling better than it had before surgery. He felt there was a foreign body in the tip of his thumb when his pain began, and he was trying to cut it out at home. 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 He is currently talking to work about this issue. He was seen in the ED on 03/21/25 where two splinter pieces were removed from the tip of his thumb. He says he was then seen several weeks later at [facility] where again he had a piece of hard matter removed. He says he later removed a foreign body himself at home before he went back to the ED on 05/09/25. He denies remembering every getting a splinter or other foreign body in his thumb. He says he has soreness in his thumb but this has improved somewhat since last week. He is concerned that he has developed a dry cough since taking his Abx. Denies any other symptoms of infection or congestion, just a persistent mild dry cough. He is performing daily dressing changes at home. He says he works installing windows and he is often around wood and other hazardous materials such as lead or Asbestos. He says this injury likely happened at work but he is unsure of the exact date of when he would have been issued. He says his job is working with him on this. [facility] Medical History Tobacco user (12/31/18) Chronic alcoholism in remission (03/21/18) Back pain History of ETOH abuse Chronic hepatitis C Hernia Opioid use disorder Intravenous drug abuse in remission Anxiety Depression HTN (hypertension) Surgical History History of amputation of finger Hx of surgical amputation of finger Family History Mother Lung cancer Social History Household Members: Significant Other Housing: Apartment Are you a primary career representative to a significant other at home: No Do you presently have visiting nurse or other home services: No Alcohol intake: former 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 Patient Tobacco Use Status: Current everyday Tobacco user Tobacco use type: Cigarette Cigarette Packs Per Day: 1 Cigarettes Per Day: 20.0 e-Cigarette/Vaping Use: Never Used Second Hand Smoke Exposure: No Substance Use Type: Marijuana Advance Directives Date on File: 08/04/21 service: No Current occupational status: unemployed Physical Exam Const General: no acute distress and alert Orientation/consciousness: patient oriented x3 Neuro General: patient oriented x3 Extrem Other: The patient was alert oriented and in no acute distress The incision is healing well with no erythema drainage or evidence of infection. Sutures removed The thumb is now nontender. He has active thumb IP joint flexion and extension, though he has some stiffness in his joint. He could oppose his thumb to all digits He could flex his thumb down to the PIP joint of the small finger Sensation is intact Cap refill is brisk Microbiology report 05/11/25 Routine Culture Final 05/13/25-723 Organism 1 Staphylococcus aureus Quantity 1+ S aureus M.I.C. RX --------- --- Clindamycin <=0.25 S Erythromycin >=8 R Levofloxacin 0.25 S Oxacillin 0.5 S Penicillin-G >=0.5 R Tetracycline <=1 S Trimethoprim/Sulfamethoxazole <=10 S Psych Appearance: grossly normal Affect: normal affect Attitude: cooperative Assessment & Plan Assessment & Plan (1) Osteomyelitis of right hand: Comment: Th Code(s): M86.9 - Osteomyelitis, unspecified Category: Medical (2) Staphylococcus aureus bacteremia: Code(s): R78.81 - Bacteremia; B95.61 - Methicillin susceptible Staphylococcus aureus infection as the cause of diseases classified elsewhere Category: Medical Plan Assessment & Plan: 1. Right thumb distal phalanx osteomyelitis, S/P I&D DOS: 05/11/25 Several foreign body removal procedures done at [facility], [facility], and by the patient at home Symptoms began ~03/08/25, and he believes he got a splinter in there sometime while at work installing windows. The patient appears to be doing well post-operatively I educated him about the post-operative course I explained the signs and symptoms of infection, if the patient develops any new or worsening erythema, drainage, pain, or warmth they should contact the clinic or attend the ED. He will continue to receive IV Abx through his PICC line for the next few weeks. he is on Daptomycin and follows with Dr. 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 He was given a note for work to remain out of work until his next appointment. he is on a 2lb weight limit with no pinching or gripping activities, and he must keep this clean & dry. Patient reports this is likely a work injury. He will follow up in 4 weeks, with X-rays, 3V R Th We hope to return him to work at that time. He will likely still be on antibiotics. Scribed for Marlene Harrington MD by Adalberto Bazzi, medical insurance claims specialist, on 05/26/25 at 10:05 AM, EST. Coding Level of Care Code Global (69354) Diagnoses Osteomyelitis of right hand M86.9 Staphylococcus aureus bacteremia R78.81; B95.61
--- OUTSIDE RECORDS SUMMARY | 2025-05-26 10:40 | XMS_ITS | Encounter Summary ---
Author Organization [employer] Address [address] [facility] 7[address] [place] [address] Care Team Providers Care Web Producer Name Role Phone Silvia Fitzgerald MD Primary Care Provider + Reason for Visit * Reason Onset Date Comments appt reschedule 05/21/2025 Encounter Details Date Type Department Care Team (Late Contact Info) Description 05/21/2025 Telephone [facility] [address] [place], [place] [phone] Kelsea Pablo RN [address] [place] [phone] appt reschedule Social History Tobacco Use Types [...] Description 06/11/2025 10:45 AM EDT Office Visit [facility] [address] [place] [phone] Silvia Fitzgerald MD [address] [place] [address] documented as of this encounter Visit Diagnoses Not on filedocumented in this encounter Care Teams Web Producer Relationship Specialty Start Date End Date Silvia Fitzgerald MD [address] [place] [phone] PCP - General Family Medicine 12/12/18 documented as of this encounter
--- OUTSIDE RECORDS SUMMARY | 2025-05-26 10:40 | XMS_ITS | Clinical Summary ---
Author Organization [employer] Address [address] [facility] [address] [place] [address] Care Team Providers Care License Distributor Name Role Phone Silvia Fitzgerald MD Primary [...] Type Department Care Team Description 05/21/2025 Telephone [facility] [address] [place] [phone] Kelsea Pablo RN appt reschedule 05/18/2025 Orders Only GENERIC EXTERNAL DATA DEPARTMENT Provider, Generic External Data 05/18/2025 Patient Outreach [facility] [address] [place] [phone] Silvia Fitzgerald MD Transition Of Care (Tcm) (HDF scheduled) 05/09/2025 Orders Only [facility] External Provider, [facility] 03/21/2025 Orders Only [facility] External Provider, [facility] from Last 3 Months Immunizations [...] Description 06/11/2025 10:45 AM EDT Office Visit [facility] [address] [place] [address] Silvia Fitzgerald MD [address] [place] [address] Health Maintenance Due Date Last Done Comments [...] Hold Lavender - Possible Hematololgy SEE NOTE [facility] Comment:Specimen will be hel d untested for 8 hours. Call Hematologyif testing is desired. 05/18/2025 11:0 0 AM EDT 05/18/2025 1:17 PM EDT us Generic External Data Provider HISTORICAL/NON OR DERABLE LABS Final Result Performing Organization Address [facility]/ZIP Co de Phone Number [facility] [address] [place] [phone] * Creatinine, Serum (05/18/2025 11:00 AM EDT) Pathologist [facility] Creatinine, Serum 0.79 0.5 - 1.4 mg/dL [facility] Estimated Glomerular Filt Rate >60 [facility] Comment:Chronic Kidney Disea se: Estimated GFR < 60 mL/min/[id number] Kidney Disease: Estimated GFR < 15 mL/min/1.73m2 05/18/2025 11:0 0 AM EDT 05/18/2025 1:17 PM EDT us Generic External Data Provider LAB BLOOD ORDERAB LES Final Result Performing Organization Address City/[facility]/ZIP Co de Phone Number [facility] [address] [place] [phone] * Creatine Kinase, Total (05/18/2025 11:00 AM EDT) Pathologist [facility] Creatine Kinase Total 103 38 - 174 U/L [facility] 05/18/2025 11:0 0 AM EDT 05/18/2025 1:17 PM EDT Generic External Data Provider LAB BLOOD ORDERAB LES Final Result Performing Organization Address [facility]/ZIP Co de Phone Number [facility] [address] [place] [phone] * XR Chest 1 View (05/14/2025 3:20 PM EDT) Anatomical Region Laterality Modality Chest Radiographic Susan ging 05/14/2025 3:2 0 PM EDT Narrative 05/14/2025 3:35 PM EDT [address] [address] XRay Report Signed Patient: Adalberto Mari MR#: [id number] : 1970 Acct:[id number] Age/Sex: 54 / M ADM Date: 05/09/25 Loc: HO.S3 360-[address]: En DUFFY Ordering Physician: En Carlisle Date of Service: 05/14/25 Procedure(s): XR chest 1V Accession Number(s): [id number] cc: En Carlisle; Silvia Fitzgerald MD EXAMINATION: [...] 05/14/25 1532 DD/ 1520 TD/TT: 05/14/25 1529 Undercover Agent: Procedure Note Donotuseinterpreter, Image - 05/14/[address] [address] XRay Report Signed Patient: Adalberto Mari CMR#: [id number] : 1970Acct:[id number] Age/Sex: 54 / MADM Date: 05/09/25 Loc: HO.S3 360-[address]: En DUFFY Ordering Physician: En Carlisle Date of Service: 05/14/25 Procedure(s): XR chest 1V Accession Number(s): [id number] cc: En Carlisle; Silvia Fitzgerald MD EXAMINATION: [...] 05/14/25 1532 DD/ 1520 TD/TT: 05/14/25 1529 Undercover Agent: [facility] External Provider IMG XR PROCEDURES Final Result * (ABNORMAL) CBC auto differential (05/09/2025 7:04 PM EDT) Only the most recent of2 resultswithin the time period is included. White Blood Count 5.4 4.8 - 10.8 X10*3/uL [facility] Red Blood Count 4.12(L) 4.60 - 5.80 X10*6/uL [facility] Hemoglobin 13.0(L) 14.0 - 18.0 g/dl [facility] Hematocrit 37.5(L) 42.0 - 52.0 % [facility] Mean Corpuscular Volume 91.0 80.0 - 98.0 fL [facility] Mean Corpuscular Hemoglobin 31.6 27.0 - 33.0 pg [facility] Mean Corpuscular HGB Conc 34.7 31.0 - 36.0 g/dl [facility] Red Cell Distribution Width 13.7 11.0 - 16.0 % [facility] Platelet Count 174 160 - 400 X10*3/uL [facility] Mean Platelet Volume 8.6(L) 9.4 - 12.4 fL [facility] Neutrophils Percent Auto 64.7 45 - 73 % [facility] Imm Gran Pct Auto 0.2 0.0 - 0.4 % [facility] Lymphocytes Percent Auto 24.4 20 - 40 % [facility] Monocytes Percent Auto 6.8 2 - 11 % [facility] Eosinophils Percent Auto 3.5 0 - 4 % [facility] Basophils Percent Auto 0.4 0 - 2 % [facility] NRBC Pct Auto 0.0 0.0 - 0.2 /100WBC [facility] Neutrophils Absolute Auto 3.5 2.0 - 8.3 x10*3/uL [facility] Imm Gran Abs Auto 0.01 0.00 - 0.03 X10*3/uL [facility] Lymphocytes Absolute Auto 1.3 1.2 - 4.9 X10*3/uL [facility] Monocytes Absolute Auto 0.4 0.1 - 1.2 X10*3/uL [facility] Eosinophils Absolute Auto 0.2 0.0 - 0.4 X10*3/uL [facility] Basophils Absolute Auto 0.0 0.0 - 0.2 X10*3/uL [facility] NRBC Abs Auto 0.000 0.0 - 0.012 X10*3/uL [facility] 05/09/2025 7:04 PM EDT 05/09/2025 7:09 PM EDT us Generic External Data Provider LAB BLOOD ORDERAB LES Final Result [facility] [address] [place] [phone] * Sed Rate by Modified Collette (05/09/2025 7:04 PM EDT) Only the most recent of2 resultswithin the time period is included. Erythrocyte Sedimentation Rate 10 0 - 15 MM/HR [facility] Comment:Patients with polycy themia and many hemoglobin abnormalitiesmay have depressed sed rates whereas patients with anemiamay have elevated sed rates. 05/09/2025 7:04 PM EDT 05/09/2025 7:09 PM EDT Generic External Data Provider LAB BLOOD ORDERAB LES Final Result Performing Organization Address [facility] Co de Phone Number [facility] [address] [place] [phone] * C-reactive Protein (05/09/2025 7:04 PM EDT) Only the most recent of2 resultswithin the time period is included. C Reactive Protein 0.23 < or = 0.50 mg/dL [facility] 05/09/2025 7:04 PM EDT 05/09/2025 7:09 PM EDT Generic External Data Provider LAB BLOOD ORDERAB LES Final Result Performing Organization Address [facility] Co de Phone Number [facility] [address] [place] [phone] * Magnesium (05/09/2025 7:04 PM EDT) Magnesium 1.9 1.6 - 2.6 mg/dL [facility] 05/09/2025 7:04 PM EDT 05/09/2025 7:09 PM EDT Generic External Data Provider LAB BLOOD ORDERAB LES Final Result Performing Organization Address [facility] Co de Phone Number [facility] [address] [place] [phone] * Lactic Acid (05/09/2025 7:04 PM EDT) Lactic Acid 1.5 0.5 - 2.0 mmol/L [facility] 05/09/2025 7:04 PM EDT 05/09/2025 7:09 PM EDT us Generic External Data Provider LAB BLOOD ORDERAB LES Final Result [facility] [address] [place] [phone] * (ABNORMAL) Comprehensive Metabolic Panel (05/09/2025 7:04 PM EDT) Only the most recent of2 resultswithin the time period is included. Pathologist [facility] Sodium 138 135 - 145 mmol/L [facility] Potassium 4.3 3.3 - 5.1 mmol/L [facility] Chloride 105 96 - 108 mmol/L [facility] Carbon Dioxide 24 22 - 29 mmol/L [facility] Anion Gap 13 12 - 20 [facility] Urea Nitrogen (BUN) 13 9 - 16 mg/dL [facility] Creatinine, Serum 0.82 0.5 - 1.4 mg/dL [facility] Creatinine Clr Calc Pharmacy 95.1 [facility] Comment:eGFR (calculated fro m the MDRD study equation) and eCrCl(calculated from the Cockcroft-Gault equation) are based ondifferent parameters and may not yield comparable results.If eCrCl result is absurd, please check patient'sheight/weight. Estimated Glomerular Filt Rate >60 [facility] Comment:Chronic Kidney Disea se: Estimated GFR < 60 mL/min/1.11w7Bipomt Kidney Disease: Estimated GFR < 15 mL/min/1.73m2 Glucose 138(H) 60 - 115 mg/dL [facility] Calcium 8.8 8.4 - 10.2 mg/dL [facility] Bilirubin, Total 0.7 0.0 - 1.0 mg/dL [facility] Aspartate Amino Transferase 27 5 - 37 U/L [facility] Alanine Aminotransferase 27 0 - 40 U/L [facility] Total Protein 6.7 6.5 - 8.0 g/dL [facility] Albumin Level 4.1 3.5 - 5.0 g/dL [facility] Alkaline Phosphatase 72 39 - 117 U/L [facility] 05/09/2025 7:04 PM EDT 05/09/2025 7:09 PM EDT us Generic External Data Provider LAB BLOOD ORDERAB LES Final Result [facility] [address] [place] [phone] * CT Hand w/ Contrast Right (05/09/2025 3:23 PM EDT) Anatomical Region Laterality Modality Upper Extremities, Hand Right Computed Tomography 05/09/2025 3:23 PM EDT Narrative 05/09/2025 3:25 PM EDT [place] [address] CT Scan Report Signed Patient: Adalberto Mari MR#: [id number] [id number] : 1970 Acct:[id number] Age/Sex: 54 / M ADM Date: 05/09/25 Loc: .ED Attending Dr: Ordering Physician: Nakia Hartley PA-C Date of Service: 05/09/25 Procedure(s): CT hand RT w IV con Accession Number(s): [id number] cc: Nakia Hartley PA-C; Silvia Fitzgerald MD Report Number: [id number]: Total DLP = 111.00 mGy-cm CLINICAL HISTORY: [...] 05/09/25 1524 DD/ 1523 TD/TT: 05/09/25 1523 Undercover Agent: Procedure Note Donotuseinterpreter, Image - 05/09/[address] [place] [address] [address] Scan Report Signed Patient: Adalberto Mari CMR#: [id number] : 1970Acct:[id number] Age/Sex: 54 / MADM Date: 05/09/25 Loc: HO.ED Attending Dr: Ordering Physician: Nakia Hartley PA-C Date of Service: 05/09/25 Procedure(s): CT hand RT w IV con Accession Number(s): [id number] cc: Nakia Hartley PA-C; Silvia Fitzgerald MD Report Number: [id number]: Total DLP = 111.00 mGy-cm CLINICAL HISTORY: [...] 05/09/25 1524 DD/ 1523 TD/TT: 05/09/25 1523 Undercover Agent: [facility] External Provider IMG CT PROCEDURES Edited Result - Final * XR Hand 3+ Views Right (05/09/2025 12:57 PM EDT) Only the most recent of2 resultswithin the time period is included. Anatomical Region Laterality Modality Upper Extremities, Hand Right [facility] 05/09/2025 12:5 7 PM EDT Narrative 05/09/2025 12:59 PM EDT [address] [address] XRay Report Signed Patient: Adalberto Mari MR#: [id number] [id number] : 1970 Acct:[id number] Age/Sex: 54 / M ADM Date: 05/09/25 Loc: HO.ED Attending Dr: Ordering Physician: Nakia Hartley PA-C Date of Service: 05/09/25 Procedure(s): XR hand RT min 3V Accession Number(s): [id number] cc: Nakia Hartley PA-C; Silvia Fitzgerald MD [...] 05/09/25 1259 DD/ 1257 TD/TT: 05/09/25 1257 Undercover Agent: Procedure Note Donotuseinterpreter, Image - 05/09/2025 [place] [address] XRay Report Signed Patient: Adalberto Mari [facility]#: [id number] : 1970Acct:[id number] Age/Sex: 54 / MADM Date: 05/09/25 Loc: HO.ED Attending Dr: Ordering Physician: Nakia Hartley PA-C Date of Service: 05/09/25 Procedure(s): XR hand RT min 3V Accession Number(s): [id number] cc: Nakia Hartley PA-C; Silvia Fitzgerald MD [...] 05/09/25 1259 DD/ 1257 TD/TT: 05/09/25 1257 Undercover Agent: [facility] External Provider IMG XR PROCEDURES Edited Result [...] of detection of this assay. The [employer] HIV Ag/Ab Combo assay result and supplemental assay results should be interpreted in conjunction with the patient's clinical presentation, history and other laboratory results. If the results are inconsistent with clinical evidence, additional testing is suggested to confirm the result. 03/12/2020 4:40 PM EDT Santos Haley MD HISTORICAL/NON ORDERABLE LABS Fi nal Result [facility] [address] from Last 3 Months or Most Recently Relevant to Health Maintenance Insurance [facility] C3 Care Teams License Distributor Relationship Specialty Start Date End Date Silvia Fitzgerald MD [address] [place] [phone] PCP - General Family Medicine 12/12/18
== END 2025-05-26 10:12 | disposition home or self-care (01) ==
LOC: HO.HOS 09:36
PROVIDERS: PCP Internal Medicine; Visit Provider Orthopaedic Surgery
DX: M86.9 Osteomyelitis, unspecified (principal); R78.81 Bacteremia; B95.61 Methicillin susceptible Staphylococcus aureus infection as the cause of diseases classified elsewhere
CPT/HCPCS: 99024

== ENCOUNTER → 2025-05-26 09:36 | Outpatient (BNVA) | payer MEDICAID, SELFPAY | PROVIDERS: PCP Internal Medicine; Visit Provider Orthopaedic Surgery | DX: R78.81 Bacteremia (principal); B95.61 Methicillin susceptible Staphylococcus aureus infection as the cause of diseases classified elsewhere; M86.141 Other acute osteomyelitis, right hand | CPT/HCPCS: 99212 ==

== ENCOUNTER 2025-06-01 15:10 | Outpatient (REF) | payer MEDICAID, SELFPAY ==
[2025-06-01 15:59] LABS: Estimated Glomerular Filt Rate > 60
--- OUTSIDE RECORDS SUMMARY | 2025-06-01 18:21 | XMS_ITS | Clinical Summary ---
Author Organization [employer] Address [address] [facility] 7t [place] [address] Care Team Providers Care Mineral Economist Name Role Phone Silvia Fitzgerald MD Primary [...] Type Department Care Team Description 05/21/2025 Telephone [facility] [address] [place] [phone] Kelsea Pablo RN appt reschedule 05/18/2025 Orders Only GENERIC EXTERNAL DATA DEPARTMENT Provider, Generic External Data 05/18/2025 Patient Outreach [facility] [address] [place] [phone] Silvia Fitzgerald MD Transition Of Care (Tcm) (HDF scheduled) 05/09/2025 Orders Only [facility] External Provider, [facility] 03/21/2025 Orders Only [facility] External Provider, [facility] from Last 3 Months Immunizations Immunization [...] Description 06/11/2025 10:45 AM EDT Office Visit [facility] [address] [place] [address] Silvia Fitzgerald MD [address] [place] [address] Health Maintenance Due Date Last Done Comments [...] 1987 Zoster Vaccines (1 of 2) 2018 Tobacco Screening 03/25/2025 03/25/2024 COVID-19 Vaccine (3 - 2024-2 6 season) 2025 07/06/2021, 05/27/2021 Influenza Vaccine (#1) 2025 , 06/09/2021 DTaP/Tdap/Td [...] Hold Lavender - Possible Hematololgy SEE NOTE [facility] Comment:Specimen will be hel d untested for 8 hours. Call Hematologyif testing is desired. 05/18/2025 11:0 0 AM EDT 05/18/2025 1:17 PM EDT us Generic External Data Provider HISTORICAL/NON OR DERABLE LABS Final Result Performing Organization Address [facility]/ZIP Co de Phone Number [facility] [address] [place] [phone] * Creatinine, Serum (05/18/2025 11:00 AM EDT) Pathologist [facility] Creatinine, Serum 0.79 0.5 - 1.4 mg/dL [facility] Estimated Glomerular Filt Rate >60 [facility] Comment:Chronic Kidney Disea se: Estimated GFR < 60 mL/min/[id number] Kidney Disease: Estimated GFR < 15 mL/min/1.73m2 05/18/2025 11:0 0 AM EDT 05/18/2025 1:17 PM EDT us Generic External Data Provider LAB BLOOD ORDERAB LES Final Result Performing Organization Address City/[facility]/ZIP Co de Phone Number [facility] [address] [place] [phone] * Creatine Kinase, Total (05/18/2025 11:00 AM EDT) Pathologist [facility] Creatine Kinase Total 103 38 - 174 U/L [facility] 05/18/2025 11:0 0 AM EDT 05/18/2025 1:17 PM EDT Generic External Data Provider LAB BLOOD ORDERAB LES Final Result Performing Organization Address [facility]/ZIP Co de Phone Number [facility] [address] [place] [phone] * XR Chest 1 View (05/14/2025 3:20 PM EDT) Anatomical Region Laterality Modality Chest Radiographic Susan ging 05/14/2025 3:20 PM EDT Narrative 05/14/2025 3:35 PM EDT [address] [address] XRay Report Signed Patient: Adalberto Mari MR#: [id number] : 1970 Acct:[id number] Age/Sex: 54 / M ADM Date: 05/09/25 Loc: HO.S3 360-[address]: En DUFFY Ordering Physician: En Carlisle Date of Service: 05/14/25 Procedure(s): XR chest 1V Accession Number(s): [id number] cc: En Carlisle; Silvia Fitzgerald MD EXAMINATION: [...] 05/14/25 1532 DD/ 1520 TD/TT: 05/14/25 1529 Applications Engineer: Procedure Note Donotuseinterpreter, Image - 05/14/[address] [address] XRay Report Signed Patient: Adalberto aMri CMR#: [id number] : 1970Acct:[id number] Age/Sex: 54 / MADM Date: 05/09/25 Loc: HO.S3 360-[address]: En DUFFY Ordering Physician: En Carlisle Date of Service: 05/14/25 Procedure(s): XR chest 1V Accession Number(s): [id number] cc: En Carlisle; Silvia Fitzgerald MD EXAMINATION: [...] 05/14/25 1532 DD/ 1520 TD/TT: 05/14/25 1529 Applications Engineer: [facility] External Provider IMG XR PROCEDURES Final Result * (ABNORMAL) CBC auto differential (05/09/2025 7:04 PM EDT) Only the most recent of2 resultswithin the time period is included. White Blood Count 5.4 4.8 - 10.8 X10*3/uL [facility] Red Blood Count 4.12(L) 4.60 - 5.80 X10*6/uL [facility] Hemoglobin 13.0(L) 14.0 - 18.0 g/dl [facility] Hematocrit 37.5(L) 42.0 - 52.0 % [facility] Mean Corpuscular Volume 91.0 80.0 - 98.0 fL [facility] Mean Corpuscular Hemoglobin 31.6 27.0 - 33.0 pg [facility] Mean Corpuscular HGB Conc 34.7 31.0 - 36.0 g/dl [facility] Red Cell Distribution Width 13.7 11.0 - 16.0 % [facility] Platelet Count 174 160 - 400 X10*3/uL [facility] Mean Platelet Volume 8.6(L) 9.4 - 12.4 fL [facility] Neutrophils Percent Auto 64.7 45 - 73 % [facility] Imm Gran Pct Auto 0.2 0.0 - 0.4 % [facility] Lymphocytes Percent Auto 24.4 20 - 40 % [facility] Monocytes Percent Auto 6.8 2 - 11 % [facility] Eosinophils Percent Auto 3.5 0 - 4 % [facility] Basophils Percent Auto 0.4 0 - 2 % [facility] NRBC Pct Auto 0.0 0.0 - 0.2 /100WBC [facility] Neutrophils Absolute Auto 3.5 2.0 - 8.3 x10*3/uL [facility] Imm Gran Abs Auto 0.01 0.00 - 0.03 X10*3/uL [facility] Lymphocytes Absolute Auto 1.3 1.2 - 4.9 X10*3/uL [facility] Monocytes Absolute Auto 0.4 0.1 - 1.2 X10*3/uL [facility] Eosinophils Absolute Auto 0.2 0.0 - 0.4 X10*3/uL [facility] Basophils Absolute Auto 0.0 0.0 - 0.2 X10*3/uL [facility] NRBC Abs Auto 0.000 0.0 - 0.012 X10*3/uL [facility] 05/09/2025 7:04 PM EDT 05/09/2025 7:09 PM EDT us Generic External Data Provider LAB BLOOD ORDERAB LES Final Result [facility] [address] [place] [phone] * Sed Rate by Modified Collette (05/09/2025 7:04 PM EDT) Only the most recent of2 resultswithin the time period is included. Erythrocyte Sedimentation Rate 10 0 - 15 MM/HR [facility] Comment:Patients with polycy themia and many hemoglobin abnormalitiesmay have depressed sed rates whereas patients with anemiamay have elevated sed rates. 05/09/2025 7:04 PM EDT 05/09/2025 7:09 PM EDT Generic External Data Provider LAB BLOOD ORDERAB LES Final Result Performing Organization Address [facility] Co de Phone Number [facility] [address] [place] [phone] * C-reactive Protein (05/09/2025 7:04 PM EDT) Only the most recent of2 resultswithin the time period is included. C Reactive Protein 0.23 < or = 0.50 mg/dL [facility] 05/09/2025 7:04 PM EDT 05/09/2025 7:09 PM EDT Generic External Data Provider LAB BLOOD ORDERAB LES Final Result Performing Organization Address [facility] Co de Phone Number [facility] [address] [place] [phone] * Magnesium (05/09/2025 7:04 PM EDT) Magnesium 1.9 1.6 - 2.6 mg/dL [facility] 05/09/2025 7:04 PM EDT 05/09/2025 7:09 PM EDT Generic External Data Provider LAB BLOOD ORDERAB LES Final Result Performing Organization Address [facility] Co de Phone Number [facility] [address] [place] [phone] * Lactic Acid (05/09/2025 7:04 PM EDT) Lactic Acid 1.5 0.5 - 2.0 mmol/L [facility] 05/09/2025 7:04 PM EDT 05/09/2025 7:09 PM EDT us Generic External Data Provider LAB BLOOD ORDERAB LES Final Result [facility] [address] [place] [phone] * (ABNORMAL) Comprehensive Metabolic Panel (05/09/2025 7:04 PM EDT) Only the most recent of2 resultswithin the time period is included. Pathologist [facility] Sodium 138 135 - 145 mmol/L [facility] Potassium 4.3 3.3 - 5.1 mmol/L [facility] Chloride 105 96 - 108 mmol/L [facility] Carbon Dioxide 24 22 - 29 mmol/L [facility] Anion Gap 13 12 - 20 [facility] Urea Nitrogen (BUN) 13 9 - 16 mg/dL [facility] Creatinine, Serum 0.82 0.5 - 1.4 mg/dL [facility] Creatinine Clr Calc Pharmacy 95.1 [facility] Comment:eGFR (calculated fro m the MDRD study equation) and eCrCl(calculated from the Cockcroft-Gault equation) are based ondifferent parameters and may not yield comparable results.If eCrCl result is absurd, please check patient'sheight/weight. Estimated Glomerular Filt Rate >60 [facility] Comment:Chronic Kidney Disea se: Estimated GFR < 60 mL/min/1.87k2Hdgpaa Kidney Disease: Estimated GFR < 15 mL/min/1.73m2 Glucose 138(H) 60 - 115 mg/dL [facility] Calcium 8.8 8.4 - 10.2 mg/dL [facility] Bilirubin, Total 0.7 0.0 - 1.0 mg/dL [facility] Aspartate Amino Transferase 27 5 - 37 U/L [facility] Alanine Aminotransferase 27 0 - 40 U/L [facility] Total Protein 6.7 6.5 - 8.0 g/dL [facility] Albumin Level 4.1 3.5 - 5.0 g/dL [facility] Alkaline Phosphatase 72 39 - 117 U/L [facility] 05/09/2025 7:04 PM EDT 05/09/2025 7:09 PM EDT us Generic External Data Provider LAB BLOOD ORDERAB LES Final Result [facility] [address] [place] [phone] * CT Hand w/ Contrast Right (05/09/2025 3:23 PM EDT) Anatomical Region Laterality Modality Upper Extremities, Hand Right Computed Tomography 05/09/2025 3:23 PM EDT Narrative 05/09/2025 3:25 PM EDT [place] [address] CT Scan Report Signed Patient: Adalberto Mari MR#: [id number] : 1970 Acct:[id number] Age/Sex: 54 / M ADM Date: 05/09/25 Loc: .ED Attending Dr: Ordering Physician: Nakia Hartley PA-C Date of Service: 05/09/25 Procedure(s): CT hand RT w IV con Accession Number(s): [id number] cc: Nakia Hartley PA-C; Silvia Fitzgerald MD Report Number: [id number]: Total DLP = 111.00 mGy-cm CLINICAL HISTORY: [...] 05/09/25 1524 DD/ 1523 TD/TT: 05/09/25 1523 Applications Engineer: Procedure Note Donotuseinterpreter, Image - 05/09/[address] [place] [address] [address] Scan Report Signed Patient: Adalberto Mari CMR#: [id number] : 1970Acct:[id number] Age/Sex: 54 / MADM Date: 05/09/25 Loc: HO.ED Attending Dr: Ordering Physician: Nakia Hartley PA-C Date of Service: 05/09/25 Procedure(s): CT hand RT w IV con Accession Number(s): [id number] cc: Nakia Hartley PA-C; Silvia Fitzgerald MD Report Number: [id number]: Total DLP = 111.00 mGy-cm CLINICAL HISTORY: [...] 05/09/25 1524 DD/ 1523 TD/TT: 05/09/25 1523 Applications Engineer: [facility] External Provider IMG CT PROCEDURES Edited Result - Final * XR Hand 3+ Views Right (05/09/2025 12:57 PM EDT) Only the most recent of2 resultswithin the time period is included. Anatomical Region Laterality Modality Upper Extremities, Hand Right Radiogra phic Imaging 05/09/2025 12:5 7 PM EDT Narrative 05/09/2025 12:59 PM EDT [address] [address] XRay Report Signed Patient: Adalberto Mari MR#: [id number] : 1970 Acct:[id number] Age/Sex: 54 / M ADM Date: 05/09/25 Loc: HO.ED Attending Dr: Ordering Physician: Nakia Hartley PA-C Date of Service: 05/09/25 Procedure(s): XR hand RT min 3V Accession Number(s): [id number] cc: Nakia Hartley PA-C; Silvia Fitzgerald MD [...] 05/09/25 1259 DD/ 1257 TD/TT: 05/09/25 1257 Applications Engineer: Procedure Note Donotuseinterpreter, Image - 05/09/2025 [place] [address] XRay Report Signed Patient: Adalberto Mari [facility]#: [id number] : 1970Acct:[id number] Age/Sex: 54 / MADM Date: 05/09/25 Loc: HO.ED Attending Dr: Ordering Physician: Nakia Hartley PA-C Date of Service: 05/09/25 Procedure(s): XR hand RT min 3V Accession Number(s): [id number] cc: Nakia Hartley PA-C; Silvia Fitzgerald MD [...] 05/09/25 1259 DD/ 1257 TD/TT: 05/09/25 1257 Applications Engineer: [facility] External Provider IMG XR PROCEDURES Edited [...] of detection of this assay. The [employer] HIV Ag/Ab Combo assay result and supplemental assay results should be interpreted in conjunction with the patient's clinical presentation, history and other laboratory results. If the results are inconsistent with clinical evidence, additional testing is suggested to confirm the result. 03/12/2020 4:40 PM EDT Santos Haley MD HISTORICAL/NON ORDERABLE LABS Fi nal Result [facility] [address] from Last 3 Months or Most Recently Relevant to Health Maintenance Insurance [facility] C3 Care Teams Mineral Economist Relationship Specialty Start Date End Date Silvia Fitzgerald MD [address] [place] [phone] PCP - General Family Medicine 12/12/18
== END 2025-06-01 15:11 | disposition home or self-care (01) ==
LOC: HO.HVNA 15:10
PROVIDERS: Visit Provider Internal Medicine
DX: M18.11 Unilateral primary osteoarthritis of first carpometacarpal joint, right hand (principal); M86.141 Other acute osteomyelitis, right hand
CPT/HCPCS: 36415; 82550; 82565

== ENCOUNTER 2025-06-08 11:50 | Outpatient (REF) | payer MEDICAID, SELFPAY ==
[2025-06-08 16:42] LABS: Estimated Glomerular Filt Rate > 60
--- OUTSIDE RECORDS SUMMARY | 2025-06-08 17:54 | XMS_ITS | Encounter Summary ---
Author Organization [employer] [facility] Address [address] [facility] 7t [place] [address] Care Team Providers Care Dementia Program Director Name Role Phone Silvia Fitzgerald MD Primary Care Provider + Encounter Details Date Type Department Care Team (Late Contact Info) Description 06/08/2025 Orders Only GENERIC EXTERNAL DATA DEPARTMENT Provider, [...] Description 06/11/2025 10:45 AM EDT Office Visit [facility] [address] [place] [address] Silvia Fitzgerald MD [address] [place] [address] documented as of this encounter Procedures Procedure Name Priority Date/Time Associated Diagnosis Comments CREATININE, SERUM Routine 06/08/2025 1:1 8 PM EDT CREATINE KINASE, TOTAL Routine 06/08/2025 1:18 PM EDT documented in this encounter Results * (ABNORMAL) Creatine Kinase, Total (06/08/2025 1:18 PM EDT) Creatine Kinase Total 202(H) 38 - 174 U/L [facility] 06/08/2025 1:18 PM EDT 06/08/2025 4:28 PM EDT us Generic External Data Provider LAB BLOOD ORDERAB LES Final Result Performing Organization Address City/[facility]/ZIP Co de Phone Number [facility] [address] [place] [phone] * Creatinine, Serum (06/08/2025 1:18 PM EDT) Creatinine, Serum 0.93 0.5 - 1.4 mg/dL [facility] Estimated Glomerular Filt Rate >60 [facility] Comment:Chronic Kidney Disea se: Estimated GFR < 60 mL/min/1.21b3Misnwv Kidney Disease: Estimated GFR < 15 mL/min/1.73m2 06/08/2025 1:18 PM EDT 06/08/2025 4:28 PM EDT us Generic External Data Provider LAB BLOOD ORDERAB LES Final Result Performing Organization Address [facility] Co de Phone Number [facility] [address] [place] [phone] documented in this encounter Visit Diagnoses Not on filedocumented in this encounter Care Teams Dementia Program Director Relationship Specialty Start Date End Date Silvia Fitzgerald MD [address] [place] [phone] PCP - General Family Medicine 12/12/18 documented as of this encounter
--- OUTSIDE RECORDS SUMMARY | 2025-06-08 17:54 | XMS_ITS | Clinical Summary ---
Author Organization [employer] Address [address] [place] [address] Care Team Providers Care Pile Driver Engineer Name Role Phone Silvia Fitzgerald MD Primary [...] Encounters Date Type Department Care Team Description 06/08/2025 Orders Only GENERIC EXTERNAL DATA DEPARTMENT Provider, Generic External Data 05/21/[address] [address] Kelsea Pablo RN appt reschedule 05/18/2025 Orders Only GENERIC EXTERNAL DATA DEPARTMENT Provider, Generic External Data 05/18/2025 Patient Outreach [facility] [address] [place] [address] Silvia Fitzgreald MD Transition Of Care (Tcm) (HDF scheduled) 05/09/2025 Orders Only [facility] External Provider, [facility] 03/21/2025 Orders Only [facility] External Provider, [facility] from Last 3 Months Immunizations Immunization Administration [...] Description 06/11/2025 10:45 AM EDT Office Visit [facility] [address] [place] [address] Silvia Fitzgerald MD [address] [place] [address] Health Maintenance Due Date Last Done Comments [...] Procedure Name Priority Date/Time Associated Diagnosis Comments CREATINE KINASE, TOTAL Routine 1:18 PM EDT CREATININE, SERUM Routine 06/08/2025 1:1 8 PM EDT HOLD LAVENDER - POSSIBLE HEMATOLOGY Routine 05/18/2025 [...] Recently Relevant to Health Maintenance Results * Creatinine, Serum (06/08/2025 1:18 PM EDT) Only the most recent of2 resultswithin the time period is included. Creatinine, Serum 0.93 0.5 - 1.4 mg/dL [facility] Estimated Glomerular Filt Rate >60 [facility] Comment:Chronic Kidney Disea se: Estimated GFR < 60 mL/min/[id number] Kidney Disease: Estimated GFR < 15 mL/min/1.73m2 06/08/2025 1:18 PM EDT 06/08/2025 4:28 PM EDT us Generic External Data Provider LAB BLOOD ORDERAB LES Final Result Performing Organization Address City/[facility]/ZIP Co de Phone Number [facility] [address] [place] [phone] * (ABNORMAL) Creatine Kinase, Total (06/08/2025 1:18 PM EDT) Only the most recent of2 resultswithin the time period is included. Creatine Kinase Total 202(H) 38 - 174 U/L [facility] 06/08/2025 1:18 PM EDT 06/08/2025 4:28 PM EDT us Generic External Data Provider LAB BLOOD ORDERAB LES Final Result Performing Organization Address City/[facility]/ZIP Co de Phone Number [facility] [address] [place] [phone] * Hold Lavender - Possible Hematology (05/18/2025 11:00 AM EDT) Hold Lavender - Possible Hematololgy SEE NOTE [facility] Comment:Specimen will be hel d untested for 8 hours. Call Hematologyif testing is desired. 05/18/2025 11:0 0 AM EDT 05/18/2025 1:17 PM EDT us Generic External Data Provider HISTORICAL/NON OR DERABLE LABS Final Result Performing Organization Address City/State/[facility] Co de Phone Number [facility] [address] [place] [phone] * XR Chest 1 View (05/14/2025 3:20 PM EDT) Anatomical Region Laterality Modality Chest Radiographic Susan ging 05/14/2025 3:20 PM EDT Narrative 05/14/2025 3:35 PM EDT [address] [address] XRay Report Signed Patient: Adalberto Mari MR#: [id number] : 1970 Acct:[id number] Age/Sex: 54 / M ADM Date: 05/09/25 Loc: .S3 360-[address]: En DUFFY Ordering Physician: En Carlisle Date of Service: 05/14/25 Procedure(s): XR chest 1V Accession Number(s): [id number] cc: En Carlisle; Silvia Fitzgerald MD EXAMINATION: [...] 05/14/25 1532 DD/ 1520 TD/TT: 05/14/25 1529 Residential Carpenter: Procedure Note Milester, Image - 05/14/[address] [address] XRay Report Signed Patient: Adalberto Mari CMR#: [id number] : 1970Acct:[id number] Age/Sex: 54 / MADM Date: 05/09/25 Loc: .S3 360-[address]: En DUFFY Ordering Physician: En Carlisle Date of Service: 05/14/25 Procedure(s): XR chest 1V Accession Number(s): [id number] cc: En Carlisle; Silvia Fitzgerald MD EXAMINATION: [...] 05/14/25 1532 DD/ 1520 TD/TT: 05/14/25 1529 Residential Carpenter: [facility] External Provider IMG XR PROCEDURES Final Result * (ABNORMAL) CBC auto differential (05/09/2025 7:04 PM EDT) Only the most recent of2 resultswithin the time period is included. White Blood Count 5.4 4.8 - 10.8 X10*3/uL [facility] Red Blood Count 4.12(L) 4.60 - 5.80 X10*6/uL [facility] Hemoglobin 13.0(L) 14.0 - 18.0 g/dl [facility] Hematocrit 37.5(L) 42.0 - 52.0 % [facility] Mean Corpuscular Volume 91.0 80.0 - 98.0 fL [facility] Mean Corpuscular Hemoglobin 31.6 27.0 - 33.0 pg [facility] Mean Corpuscular HGB Conc 34.7 31.0 - 36.0 g/dl [facility] Red Cell Distribution Width 13.7 11.0 - 16.0 % [facility] Platelet Count 174 160 - 400 X10*3/uL [facility] Mean Platelet Volume 8.6(L) 9.4 - 12.4 fL [facility] Neutrophils Percent Auto 64.7 45 - 73 % [facility] Imm Gran Pct Auto 0.2 0.0 - 0.4 % [facility] Lymphocytes Percent Auto 24.4 20 - 40 % [facility] Monocytes Percent Auto 6.8 2 - 11 % [facility] Eosinophils Percent Auto 3.5 0 - 4 % [facility] Basophils Percent Auto 0.4 0 - 2 % [facility] NRBC Pct Auto 0.0 0.0 - 0.2 /100WBC [facility] Neutrophils Absolute Auto 3.5 2.0 - 8.3 x10*3/uL [facility] Imm Gran Abs Auto 0.01 0.00 - 0.03 X10*3/uL [facility] Lymphocytes Absolute Auto 1.3 1.2 - 4.9 X10*3/uL [facility] Monocytes Absolute Auto 0.4 0.1 - 1.2 X10*3/uL [facility] Eosinophils Absolute Auto 0.2 0.0 - 0.4 X10*3/uL [facility] Basophils Absolute Auto 0.0 0.0 - 0.2 X10*3/uL [facility] NRBC Abs Auto 0.000 0.0 - 0.012 X10*3/uL [facility] 05/09/2025 7:04 PM EDT 05/09/2025 7:09 PM EDT Generic External Data Provider LAB BLOOD ORDERAB LES Final Result Performing Organization Address [facility] de Phone Number [facility] [address] [place] [phone] * Sed Rate by Modified Markergren (05/09/2025 7:04 PM EDT) Only the most recent of2 resultswithin the time period is included. Erythrocyte Sedimentation Rate 10 0 - 15 MM/HR [facility] Comment:Patients with polycy themia and many hemoglobin abnormalitiesmay have depressed sed rates whereas patients with anemiamay have elevated sed rates. 05/09/2025 7:04 PM EDT 05/09/2025 7:09 PM EDT Generic External Data Provider LAB BLOOD ORDERAB LES Final Result Performing Organization Address [facility] de Phone Number [facility] [address] [place] [phone] * C-reactive Protein (05/09/2025 7:04 PM EDT) Only the most recent of2 resultswithin the time period is included. C Reactive Protein 0.23 < or = 0.50 mg/dL [facility] 05/09/2025 7:04 PM EDT 05/09/2025 7:09 PM EDT Generic External Data Provider LAB BLOOD ORDERAB LES Final Result Performing Organization Address [facility] de Phone Number [facility] [address] [place] [phone] * Magnesium (05/09/2025 7:04 PM EDT) Magnesium 1.9 1.6 - 2.6 mg/dL [facility] 05/09/2025 7:04 PM EDT 05/09/2025 7:09 PM EDT us Generic External Data Provider LAB BLOOD ORDERAB LES Final Result Performing Organization Address City/[facility]/ZIP Co de Phone Number [facility] [address] [place] [phone] * Lactic Acid (05/09/2025 7:04 PM EDT) Lactic Acid 1.5 0.5 - 2.0 mmol/L [facility] 05/09/2025 7:04 PM EDT 05/09/2025 7:09 PM EDT Generic External Data Provider LAB BLOOD ORDERAB LES Final Result Performing Organization Address [facility] Phone Number [facility] [address] [place] [phone] * (ABNORMAL) Comprehensive Metabolic Panel (05/09/2025 7:04 PM EDT) Only the most recent of2 resultswithin the time period is included. Pathologist [facility] Sodium 138 135 - 145 mmol/L [facility] Potassium 4.3 3.3 - 5.1 mmol/L [facility] Chloride 105 96 - 108 mmol/L [facility] Carbon Dioxide 24 22 - 29 mmol/L [facility] Anion Gap 13 12 - 20 [facility] Urea Nitrogen (BUN) 13 9 - 16 mg/dL [facility] Creatinine, Serum 0.82 0.5 - 1.4 mg/dL [facility] Creatinine Clr Calc Pharmacy 95.1 [facility] Comment:eGFR (calculated fro m the MDRD study equation) and eCrCl(calculated from the Cockcroft-Gault equation) are based ondifferent parameters and may not yield comparable results.If eCrCl result is absurd, please check patient'sheight/weight. Estimated Glomerular Filt Rate >60 [facility] Comment:Chronic Kidney Disea se: Estimated GFR < 60 mL/min/1.25q9Vddlwr Kidney Disease: Estimated GFR < 15 mL/min/1.73m2 Glucose 138(H) 60 - 115 mg/dL [facility] Calcium 8.8 8.4 - 10.2 mg/dL [facility] Bilirubin, Total 0.7 0.0 - 1.0 mg/dL [facility] Aspartate Amino Transferase 27 5 - 37 U/L [facility] Alanine Aminotransferase 27 0 - 40 U/L [facility] Total Protein 6.7 6.5 - 8.0 g/dL [facility] Albumin Level 4.1 3.5 - 5.0 g/dL [facility] Alkaline Phosphatase 72 39 - 117 U/L [facility] 05/09/2025 7:04 PM EDT 05/09/2025 7:09 PM EDT us Generic External Data Provider LAB BLOOD ORDERAB LES Final Result Performing Organization Address City/State/[facility] Co de Phone Number [facility] [address] [place] [phone] * CT Hand w/ Contrast Right (05/09/2025 3:23 PM EDT) Anatomical Region Laterality Modality Upper Extremities, Hand Right Computed Tomography 05/09/2025 3:23 PM EDT Narrative 05/09/2025 3:25 PM EDT [place] [address] [address] Scan Report Signed Patient: Adalberto Mari MR#: [id number] : 1970 Acct:[id number] Age/Sex: 54 / M ADM Date: 05/09/25 Loc: .ED Attending Dr: Ordering Physician: Nakia Hartley PA-C Date of Service: 05/09/25 Procedure(s): CT hand RT w IV con Accession Number(s): [id number] cc: Nakia Hartley PA-C; Silvia Fitzgerald MD Report Number: [id number]: Total DLP = 111.00 mGy-cm CLINICAL HISTORY: [...] 05/09/25 1524 DD/ 1523 TD/TT: 05/09/25 1523 Residential Carpenter: Procedure Note Donotuseinterpreter, Image - 05/09/[address] [address] [address] Scan Report Signed Patient: Adalberto Mari [facility]#: [id number] : 1970Acct:[id number] Age/Sex: 54 / MADM Date: 05/09/25 Loc: HO.ED Attending Dr: Ordering Physician: Nakia Hartley PA-C Date of Service: 05/09/25 Procedure(s): CT hand RT w IV con Accession Number(s): [id number] cc: Nakia Hartley PA-C; Silvia Fitzgerald MD Report Number: [id number]: Total DLP = 111.00 mGy-cm CLINICAL HISTORY: [...] 05/09/25 1524 DD/ 1523 TD/TT: 05/09/25 1523 Residential Carpenter: [facility] External Provider IMG CT PROCEDURES Edited Result - Final * XR Hand 3+ Views Right (05/09/2025 12:57 PM EDT) Only the most recent of2 resultswithin the time period is included. Anatomical Region Laterality Modality Upper Extremities, Hand Right Radiogra [facility] 05/09/2025 12:5 7 PM EDT Narrative 05/09/2025 12:59 PM EDT [address] [address] XRay Report Signed Patient: Adalberto Mari MR#: [id number] : 1970 Acct:[id number] Age/Sex: 54 / M ADM Date: 05/09/25 Loc: HO.ED Attending Dr: Ordering Physician: Nakia Hartley PA-C Date of Service: 05/09/25 Procedure(s): XR hand RT min 3V Accession Number(s): [id number] cc: Nakia Hartley PA-C; Silvia Fitzgerald MD [...] 05/09/25 1259 DD/ 1257 TD/TT: 05/09/25 1257 Residential Carpenter: Procedure Note Donotuseinterpreter, Image - 05/09/[address] [address] XRay Report Signed Patient: Adalberto Mari CMR#: [id number] : 1970Acct:[id number] Age/Sex: 54 / MADM Date: 05/09/25 Loc: HO.ED Attending Dr: Ordering Physician: Nakia Hartley PA-C Date of Service: 05/09/25 Procedure(s): XR hand RT min 3V Accession Number(s): [id number] cc: Nakia Hartley PA-C; Silvia Fitzgerald MD [...] 05/09/25 1259 DD/ 1257 TD/TT: 05/09/25 1257 Residential Carpenter: [facility] External Provider IMG XR PROCEDURES Edited [...] of detection of this assay. The [employer] HIV Ag/Ab Combo assay result and supplemental assay results should be interpreted in conjunction with the patient's clinical presentation, history and other laboratory results. If the results are inconsistent with clinical evidence, additional testing is suggested to confirm the result. 03/12/2020 4:40 PM EDT us Santos Haley MD HISTORICAL/NON ORDERABLE LABS Fi nal Result [facility] [address] from Last 3 Months or Most Recently Relevant to Health Maintenance Insurance [employer] Care Teams Pile Driver Engineer Relationship Specialty Start Date End Date Silvia Fitzgerald MD [address] [place] [phone] PCP - General Family Medicine 12/12/18
== END 2025-06-08 11:51 | disposition home or self-care (01) ==
LOC: HO.HVNA 11:50
PROVIDERS: PCP Internal Medicine; Visit Provider Internal Medicine
DX: N18.9 Chronic kidney disease, unspecified (principal); M18.11 Unilateral primary osteoarthritis of first carpometacarpal joint, right hand
CPT/HCPCS: 36415; 82550; 82565

== ENCOUNTER 2025-06-15 12:00 | Outpatient (REF) | payer MEDICAID, SELFPAY ==
--- OUTSIDE RECORDS SUMMARY | 2025-06-15 16:08 | XMS_ITS | Clinical Summary ---
Author Organization [employer] Address [address] [place] [address] [address]
[2025-06-15 16:41] LABS: Alanine Aminotransferase 16 U/L (0-40); Albumin Level 4.2 g/dL (3.5-5.0); Alkaline Phosphatase 77 U/L (39-117); Anion Gap 11 (12-20); Aspartate Amino Transferase 23 U/L (5-37); Blood Urea Nitrogen 11 mg/dL (9-16); Calcium 8.8 mg/dL (8.4-10.2); Carbon Dioxide 29 mmol/L (22-29); Chloride 104 mmol/L (96-108); Estimated Glomerular Filt Rate > 60; Potassium 4.1 mmol/L (3.3-5.1); Sodium 140 mmol/L (135-145); Total Protein 7.3 g/dL (6.5-8.0)
== END 2025-06-15 12:01 | disposition home or self-care (01) ==
LOC: HO.HVNA 12:00
PROVIDERS: Visit Provider Internal Medicine
DX: M18.11 Unilateral primary osteoarthritis of first carpometacarpal joint, right hand (principal)
CPT/HCPCS: 36415; 80053; 82550

== ENCOUNTER 2025-06-22 13:59 | Outpatient (AMB) | payer MEDICAID, SELFPAY ==
[2025-06-22 14:11] VITALS: PULSE 67; TEMP 36.7; O2SAT 97; BMI 32.4
--- NOTE | 2025-06-22 14:11 | A.OFFVIS_ITS ---
Vital Signs 3 06/22/25 14:11 Height 5 ft 5 in Weight 195 lb BMI 32.4 Pulse 67 Pulse Source Pulse Oximeter Temp 98.0 F Temp Source Oral Pulse Oximetry (%) 97 Oxygen Delivery Method Room Air Intake Visit Reasons: C Reff/ Osteomyelitis Allergies No Known Allergies (No Known Allergies*) Allergy (Verified 06/22/25 14:11) HPI Comments Details: History of Present Illness The patient is a 54-year-old male presenting with osteomyelitis of the finger. He has been treated with intravenous daptomycin over the past six weeks for a finger infection due to osteomyelitis. Throughout his treatment, there has been marked improvement with no current redness or swelling of the affected area. Vital signs have remained stable, and there are no systemic symptoms. His course of antibiotic therapy has concluded. Review of Systems - General: Reports feeling well. - Musculoskeletal: Reports no redness or swelling of the finger. Physical Exam - Vitals- Stable - HEENT- Oropharynx clear - Respiratory- Lungs clear - Cardiovascular- Normal heart rhythm - Musculoskeletal- Extremities non-tender; affected hand appears well Results Plan Patient was informed and verbally consented to the use of an ambient scribe for clinic note documentation during this visit. 1. Other acute osteomyelitis, unspecified hand M86.149 HCC 39 The patient has completed six weeks of IV daptomycin for osteomyelitis. No further antibiotics are needed as there is no evidence of active infection. The intravenous line will be removed. Discussion Notes I reviewed with the patient the management and resolution of the finger osteomyelitis. He has completed a six-week antibiotic regimen with IV daptomycin, and there have been no signs of ongoing infection or complications. We discussed the benefit of stopping antibiotics and the removal of the IV line. All aspects were thoroughly explained, and he agreed with this plan. Medical Decision Making The patient's osteomyelitis has responded well to the six weeks of intravenous daptomycin, which was the appropriate duration given the severity and type of infection. With the absence of redness or swelling, this indicates resolution of the infection, allowing for cessation of antibiotic therapy without need for further intervention. My primary goal is to ensure complete recovery while preventing complications such as recurrence, hence the decision to remove the IV line. Patient Instructions - Your infection has responded well to treatment, and you can stop the antibiotics now. - We will remove the IV line since it?s no longer needed. - If you notice any new redness, swelling, or pain in your finger, contact medical care immediately. - Keep the area clean and monitor for any changes. 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 Family History Mother Lung cancer Social History Household Members: Significant Other Housing: Apartment Are you a primary senior care assistant to a significant other at home: No Do you presently have visiting nurse or other home services: No Alcohol intake: former 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 Patient Tobacco Use Status: Current everyday Tobacco user Tobacco use type: Cigarette Cigarette Packs Per Day: 1 Cigarettes Per Day: 20.0 e-Cigarette/Vaping Use: Never Used Second Hand Smoke Exposure: No Substance Use Type: Marijuana Advance Directives Date on File: 08/04/21 service: No Current occupational status: unemployed Physical Exam Exam Exam: Vital Signs: Last Vital Signs Temp 98.0 F 06/22/25 14:11 Pulse 67 06/22/25 14:11 Pulse Ox 97 06/22/25 14:11 Oxygen Delivery Method Room Air 06/22/25 14:11 BMI result Body Mass Index 32.4 Assessment & Plan Assessment & Plan (1) Osteomyelitis of right hand: Comment: Th Code(s): M86.9 - Osteomyelitis, unspecified Category: Medical Plan: na Orders: Orders 2 IR cvc remove any age Today M86.9 - Osteomyelitis, unspecified Coding Level of Care Code Est Pt Level 3 (58868) Diagnoses Osteomyelitis of right hand M86.9
--- OUTSIDE RECORDS SUMMARY | 2025-06-22 15:47 | XMS_ITS | Clinical Summary ---
Author Organization [employer] Address [address] [facility] [address] [place] [address] Care Team Providers Care Railroad Shop Inspector Name Role Phone Silvia Fitzgerald MD Primary [...] 08/25/2022 Seborrheic dermatitis 08/25/2022 Chronic hepatitis C (CMS/HCC) 12/31/2018 Depressive disorder 12/31/2018 Anxiety 03/21/2018 Chronic alcoholism in remission (CMS/HCC) 2017 Hearing loss 03/21/2018 Hepatitis C antibody test [...] Encounters Date Type Department Care Team Description 06/09/2025 Telephone [facility] [address] [place] [address] Kelsea Pablo, RN appt. reschedule 06/09/2025 Telephone [facility] [address] [place] [address] Vida Cash, PIPE SUPERVISOR Follow-up 06/08/2025 Orders Only GENERIC EXTERNAL DATA DEPARTMENT Provider, Generic External Data 05/21/2025 Telephone [facility] [address] [place] [address] Kelsea Pablo RN appt reschedule 05/18/2025 Orders Only GENERIC EXTERNAL DATA DEPARTMENT Provider, Generic External Data 05/18/2025 Patient Outreach [facility] [address] [place] [address] Silvia Fitzgerald MD Transition Of Care (Tcm) (HDF scheduled) 05/09/2025 Orders Only [facility] External Provider, [facility] from Last 3 Months Immunizations Immunization [...] 2025 07/06/2021, 05/27/2021 Influenza Vaccine (#1) 2025 1, 06/09/2021 DTaP/Tdap/Td Vaccines (3 - T d [...] Associated Diagnosis Comments CREATINE KINASE, TOTAL Routine 5 1:18 PM EDT CREATININE, SERUM Routine 06/08/2025 [...] AUTO DIFFERENTIAL Routine 05/09/2025 11:48 AM EDT ZZZ HISTORICAL HIV AB/AG Routine 03/12/2020 4:40 PM EDT from Last 3 Months or Most Recently Relevant to Health Maintenance Results * Creatinine, Serum (06/08/2025 1:18 PM EDT) Only the most recent of2 resultswithin the time period is included. Creatinine, Serum 0.93 0.5 - 1.4 mg/dL [facility] Estimated Glomerular Filt Rate >60 [facility] Comment:Chronic Kidney Disea se: Estimated GFR < 60 mL/min/1.55k9Rffgcu Kidney Disease: Estimated GFR < 15 mL/min/1.73m2 06/08/2025 1:18 PM EDT 06/08/2025 4:28 PM EDT Generic External Data Provider LAB BLOOD ORDERAB LES Final Result Performing Organization Address [facility]/ZIP Co de Phone Number [facility] [address] [place] [phone] * (ABNORMAL) Creatine Kinase, Total (06/08/2025 1:18 PM EDT) Only the most recent of2 resultswithin the time period is included. Pathologist [facility] Creatine Kinase Total 202(H) 38 - 174 U/L [facility] 06/08/2025 1:18 PM EDT 06/08/2025 4:28 PM EDT Generic External Data Provider LAB BLOOD ORDERAB LES Final Result Performing Organization Address City/[facility]/ZIP Co de Phone Number [facility] [address] [place] [phone] * Hold Lavender - Possible Hematology (05/18/2025 11:00 AM EDT) Hold Lavender - Possible Hematololgy SEE NOTE [facility] Comment:Specimen will be hel d untested for 8 hours. Call Hematologyif testing is desired. 05/18/2025 11:0 0 AM EDT 05/18/2025 1:17 PM EDT us Generic External Data Provider HISTORICAL/NON OR DERABLE LABS Final Result [facility] [address] [place] [phone] * XR Chest 1 View (05/14/2025 3:20 PM EDT) Anatomical Region Laterality Modality Chest Radiographic Susan ging 05/14/2025 3:20 PM EDT Narrative 05/14/2025 3:35 PM EDT [address] [address] XRay Report Signed Patient: Adalberto Mari MR#: [id number] : 1970 Acct:[id number] Age/Sex: 54 / M ADM Date: 05/09/25 Loc: .S3 360-[address]: En DUFFY Ordering Physician: En Carlisle Date of Service: 05/14/25 Procedure(s): XR chest 1V Accession Number(s): [id number] cc: En Carlisle; Silvia Fitzgerald MD EXAMINATION: [...] MD Signed By: <Electronically signed by Jadiel Ramirze MD in OV> 05/14/25 1532 DD/ 1520 TD/TT: 05/14/25 1529 Beef Killer: Procedure Note Donotuseinterpreter, Image - 05/14/[address] [address] XRay Report Signed Patient: Adalberto Mari CMR#: [id number] : 1970Acct:[id number] Age/Sex: 54 / MADM Date: 05/09/25 Loc: .S3 360-[address]: En DUFFY Ordering Physician: En Carlisle Date of Service: 05/14/25 Procedure(s): XR chest 1V Accession Number(s): [id number] cc: En Carlisle; Silvia Fitzgerald MD EXAMINATION: [...] 05/14/25 1532 DD/ 1520 TD/TT: 05/14/25 1529 Beef Killer: [facility] External Provider IMG XR PROCEDURES Final Result * (ABNORMAL) CBC auto differential (05/09/2025 7:04 PM EDT) Only the most recent of2 resultswithin the time period is included. White Blood Count 5.4 4.8 - 10.8 X10*3/uL [facility] Red Blood Count 4.12(L) 4.60 - 5.80 X10*6/uL [facility] Hemoglobin 13.0(L) 14.0 - 18.0 g/dl [facility] Hematocrit 37.5(L) 42.0 - 52.0 % [facility] Mean Corpuscular Volume 91.0 80.0 - 98.0 fL [facility] Mean Corpuscular Hemoglobin 31.6 27.0 - 33.0 pg [facility] Mean Corpuscular HGB Conc 34.7 31.0 - 36.0 g/dl [facility] Red Cell Distribution Width 13.7 11.0 - 16.0 % [facility] Platelet Count 174 160 - 400 X10*3/uL [facility] Mean Platelet Volume 8.6(L) 9.4 - 12.4 fL [facility] Neutrophils Percent Auto 64.7 45 - 73 % [facility] Imm Gran Pct Auto 0.2 0.0 - 0.4 % [facility] Lymphocytes Percent Auto 24.4 20 - 40 % [facility] Monocytes Percent Auto 6.8 2 - 11 % [facility] Eosinophils Percent Auto 3.5 0 - 4 % [facility] Basophils Percent Auto 0.4 0 - 2 % [facility] NRBC Pct Auto 0.0 0.0 - 0.2 /100WBC [facility] Neutrophils Absolute Auto 3.5 2.0 - 8.3 x10*3/uL [facility] Imm Gran Abs Auto 0.01 0.00 - 0.03 X10*3/uL [facility] Lymphocytes Absolute Auto 1.3 1.2 - 4.9 X10*3/uL [facility] Monocytes Absolute Auto 0.4 0.1 - 1.2 X10*3/uL [facility] Eosinophils Absolute Auto 0.2 0.0 - 0.4 X10*3/uL [facility] Basophils Absolute Auto 0.0 0.0 - 0.2 X10*3/uL [facility] NRBC Abs Auto 0.000 0.0 - 0.012 X10*3/uL [facility] 05/09/2025 7:04 PM EDT 05/09/2025 7:09 PM EDT us Generic External Data Provider LAB BLOOD ORDERAB LES Final Result [facility] [address] [place] [phone] * Sed Rate by Modified Komalren (05/09/2025 7:04 PM EDT) Only the most recent of2 resultswithin the time period is included. Erythrocyte Sedimentation Rate 10 0 - 15 MM/HR [facility] Comment:Patients with polycy themia and many hemoglobin abnormalitiesmay have depressed sed rates whereas patients with anemiamay have elevated sed rates. 05/09/2025 7:04 PM EDT 05/09/2025 7:09 PM EDT us Generic External Data Provider LAB BLOOD ORDERAB LES Final Result Performing Organization Address [facility] de Phone Number [facility] [address] [place] [phone] * C-reactive Protein (05/09/2025 7:04 PM EDT) Only the most recent of2 resultswithin the time period is included. C Reactive Protein 0.23 < or = 0.50 mg/dL [facility] 05/09/2025 7:04 PM EDT 05/09/2025 7:09 PM EDT us Generic External Data Provider LAB BLOOD ORDERAB LES Final Result Performing Organization Address [facility] Co de Phone Number [facility] [address] [place] [phone] * Magnesium (05/09/2025 7:04 PM EDT) Magnesium 1.9 1.6 - 2.6 mg/dL [facility] 05/09/2025 7:04 PM EDT 05/09/2025 7:09 PM EDT Generic External Data Provider LAB BLOOD ORDERAB LES Final Result Performing Organization Address [facility] Co de Phone Number [facility] [address] [place] [phone] * Lactic Acid (05/09/2025 7:04 PM EDT) Pathologist [facility] Lactic Acid 1.5 0.5 - 2.0 mmol/L [facility] 05/09/2025 7:04 PM EDT 05/09/2025 7:09 PM EDT us Generic External Data Provider LAB BLOOD ORDERAB LES Final Result Performing Organization Address City/[facility]/ZIP Co de Phone Number [facility] [address] [place] [phone] * (ABNORMAL) Comprehensive Metabolic Panel (05/09/2025 7:04 PM EDT) Only the most recent of2 resultswithin the time period is included. Pathologist [facility] Sodium 138 135 - 145 mmol/L [facility] Potassium 4.3 3.3 - 5.1 mmol/L [facility] Chloride 105 96 - 108 mmol/L [facility] Carbon Dioxide 24 22 - 29 mmol/L [facility] Anion Gap 13 12 - 20 [facility] Urea Nitrogen (BUN) 13 9 - 16 mg/dL [facility] Creatinine, Serum 0.82 0.5 - 1.4 mg/dL [facility] Creatinine Clr Calc Pharmacy 95.1 [facility] Comment:eGFR (calculated fro m the MDRD study equation) and eCrCl(calculated from the Cockcroft-Gault equation) are based ondifferent parameters and may not yield comparable results.If eCrCl result is absurd, please check patient'sheight/weight. Estimated Glomerular Filt Rate >60 [facility] Comment:Chronic Kidney Disea se: Estimated GFR < 60 mL/min/1.98c2Ascdef Kidney Disease: Estimated GFR < 15 mL/min/1.73m2 Glucose 138(H) 60 - 115 mg/dL [facility] Calcium 8.8 8.4 - 10.2 mg/dL [facility] Bilirubin, Total 0.7 0.0 - 1.0 mg/dL [facility] Aspartate Amino Transferase 27 5 - 37 U/L [facility] Alanine Aminotransferase 27 0 - 40 U/L [facility] Total Protein 6.7 6.5 - 8.0 g/dL [facility] Albumin Level 4.1 3.5 - 5.0 g/dL [facility] Alkaline Phosphatase 72 39 - 117 U/L [facility] 05/09/2025 7:04 PM EDT 05/09/2025 7:09 PM EDT us Generic External Data Provider LAB BLOOD ORDERAB LES Final Result Performing Organization Address City/State/[facility] Co de Phone Number [facility] [address] [place] [phone] * CT Hand w/ Contrast Right (05/09/2025 3:23 PM EDT) Anatomical Region Laterality Modality Upper Extremities, Hand Right Computed Tomography 05/09/2025 3:23 PM EDT Narrative 05/09/2025 3:25 PM EDT [place] [address] [address] Scan Report Signed Patient: Adalberto Mari MR#: [id number] : 1970 Acct:[id number] Age/Sex: 54 / M ADM Date: 05/09/25 Loc: HO.ED Attending Dr: Ordering Physician: Nakia Hartley PA-C Date of Service: 05/09/25 Procedure(s): CT hand RT w IV con Accession Number(s): [id number] cc: Nakia Hartley PA-C; Silvia Fitzgerald MD Report Number: [id number]: Total DLP = 111.00 mGy-cm CLINICAL HISTORY: [...] 05/09/25 1524 DD/ 1523 TD/TT: 05/09/25 1523 Beef Killer: Procedure Note Donotuseinterpreter, Image - 05/09/[address] [place] [address] [address] Scan Report Signed Patient: Adalberto Mari CMR#: [id number] : 1970Acct:[id number] Age/Sex: 54 / MADM Date: 05/09/25 Loc: HO.ED Attending Dr: Ordering Physician: Nakia Hartley PA-C Date of Service: 05/09/25 Procedure(s): CT hand RT w IV con Accession Number(s): [id number] cc: Nakia Hartley PA-C; Silvia Fitzgerald MD Report Number: [id number]: Total DLP = 111.00 mGy-cm CLINICAL HISTORY: [...] 05/09/25 1524 DD/ 1523 TD/TT: 05/09/25 1523 Beef Killer: us [facility] External Provider IMG CT PROCEDURES Edited Result - Final * XR Hand 3+ Views Right (05/09/2025 12:57 PM EDT) Anatomical Region Laterality Modality Upper Extremities, Hand Right [facility] 05/09/2025 12:5 7 PM EDT Narrative 05/09/2025 12:59 PM EDT [address] [address] XRay Report Signed Patient: Adalberto Mari MR#: [id number] [id number] : 1970 Acct:[id number] Age/Sex: 54 / M ADM Date: 05/09/25 Loc: HO.ED Attending Dr: Ordering Physician: Nakia Hartley PA-C Date of Service: 05/09/25 Procedure(s): XR hand RT min 3V Accession Number(s): [id number] cc: Nakia Hartley PA-C; Silvia Fitzgerald MD [...] 05/09/25 1259 DD/ 1257 TD/TT: 05/09/25 1257 Beef Killer: Procedure Note Donotuseinterpreter, Image - 05/09/[address] [address] XRay Report Signed Patient: Adalberto Mari CMR#: [id number] : 1970Acct:[id number] Age/Sex: 54 / MADM Date: 05/09/25 Loc: HO.ED Attending Dr: Ordering Physician: Nakia Hartley PA-C Date of Service: 05/09/25 Procedure(s): XR hand RT min 3V Accession Number(s): [id number] cc: Nakia Hartley PA-C; Silvia Fitzgerald MD [...] 05/09/25 1259 DD/ 1257 TD/TT: 05/09/25 1257 Beef Killer: [facility] External Provider IMG XR PROCEDURES Edited Result [...] of detection of this assay. The [employer] Stamp Clerk HIV Ag/Ab Combo assay result and supplemental assay results should be interpreted in conjunction with the patient's clinical presentation, history and other laboratory results. If the results are inconsistent with clinical evidence, additional testing is suggested to confirm the result. 03/12/2020 4:40 PM EDT Santos Haley MD HISTORICAL/NON ORDERABLE LABS Fi nal Result [facility] [address] from Last 3 Months or Most Recently Relevant to Health Maintenance [place] [address] [address] C3 Care Teams Railroad Shop Inspector Relationship Specialty Start Date End Date Silvia Fitzgerald MD [address] [place] [phone] PCP - General Family Medicine 12/12/18
== END 2025-06-22 14:44 | disposition home or self-care (01) ==
LOC: HO.HID 13:59
PROVIDERS: PCP Internal Medicine; Visit Provider Internal Medicine
DX: M86.9 Osteomyelitis, unspecified (principal)
CPT/HCPCS: 99213

== ENCOUNTER → 2025-06-22 13:59 | Outpatient (BNVA) | payer MEDICAID, SELFPAY | PROVIDERS: PCP Internal Medicine; Visit Provider Internal Medicine | DX: M86.141 Other acute osteomyelitis, right hand (principal) | CPT/HCPCS: 99212 ==

== ENCOUNTER 2025-06-23 08:37 | Outpatient (AMB) | payer MEDICAID, SELFPAY ==
[2025-06-23 08:43] VITALS: BMI 32.4
--- NOTE | 2025-06-23 08:43 | MHC.OFFVIS ---
Vital Signs 06/23/25 08:43 Height 5 ft 5 in Weight 195 lb BMI 32.4 Intake Visit Reasons: PO - Right Thumb I&D 05/11/25 - ROM Check Intake Note: Adalberto is a 54 year old right- hand dominant male who presents today for a post operative appointment s/p Right Thumb I&D 05/11/25. He was instructed to perform ROM exercises at home, no under water activities and was given a note to remain out of work until his appointment today. Patient states he has been working on his ROM and has improved. States he has pain if he applies pressure to the tip of his thumb. Denies numbness or tingling. Allergies No Known Allergies (No Known Allergies*) Allergy (Verified 06/23/25 08:45) HPI HPI PO - Right Thumb I&D 05/11/25 - ROM Check: Details: Adalberto is a 54 year old right hand dominant man who presents S/P right thumb I&D, DOS: 05/11/25. He has osteomyelitis to the tip of his right thumb, following an injury on ~03/07/25. *Please see my note from 05/26/25 for more information* He says he is doing better overall. His PICC line was removed on 06/22/25 and he has completed his Abx course. He has been working on ROM exercises at home. 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 He says this injury likely happened at work but he is unsure of the exact date of when he would have been issued. He says his job is working with him on this. [facility] Medical History Tobacco user (12/31/18) Chronic alcoholism in remission (03/21/18) Back pain History of ETOH abuse Chronic hepatitis C Hernia Opioid use disorder Intravenous drug abuse in remission Anxiety Depression HTN (hypertension) Surgical History History of amputation of finger Hx of surgical amputation of finger Family History Mother Lung cancer Social History Household Members: Significant Other Housing: Apartment Are you a primary career and guidance counselor to a significant other at home: No Do you presently have visiting nurse or other home services: No Alcohol intake: former 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 Patient Tobacco Use Status: Current everyday Tobacco user Tobacco use type: Cigarette Cigarette Packs Per Day: 1 Cigarettes Per Day: 20.0 e-Cigarette/Vaping Use: Never Used Second Hand Smoke Exposure: No Substance Use Type: Marijuana Advance Directives Date on File: 08/04/21 service: No Current occupational status: unemployed Review of Systems Const All systems reviewed & are unremarkable except as noted in HPI and below Physical Exam Vital Signs: BMI result Body Mass Index 32.4 Const General: no acute distress and alert Orientation/consciousness: patient oriented x3 Neuro General: patient oriented x3 Extrem Other: Evaluation of Right Upper Extremity: The patient is alert, oriented, and in no acute distress Neuro: Median, Ulnar, Radial nerves motor and sensory intact and sensation is normal to the tips of all digits Vascular: Cap refill brisk ROM: He can make a fist and extend all his digits. He has active thumb IP joint flexion and extension He could oppose his thumb to all digits and the base of the small finger No erythema or evidence of infection. Radiographs: 3 views of the right hand with attention to the thumb, were taken and viewed by me today in clinic. They show stabilizing of his osteomyelitis. Because of the concavity at the tip of the distal phalanx there are 2 small bone ends that are somewhat prominent and near the skin surface. I showed this to the patient and let him know that if he continues to have tenderness over the more radial tip, 1 option may be to remove that tip of bone. Microbiology report 05/11/25 Routine Culture Final 05/13/25-4980 Organism 1 Staphylococcus aureus Quantity 1+ S aureus M.I.C. RX --------- --- Clindamycin <=0.25 S Erythromycin >=8 R Levofloxacin 0.25 S Oxacillin 0.5 S Penicillin-G >=0.5 R Tetracycline <=1 S Trimethoprim/Sulfamethoxazole <=10 S Psych Appearance: grossly normal Affect: normal affect Attitude: cooperative Assessment & Plan Assessment & Plan (1) Osteomyelitis of right hand: Comment: Code(s): M86.9 - Osteomyelitis, unspecified Category: Medical (2) Staphylococcus aureus bacteremia: Code(s): R78.81 - Bacteremia; B95.61 - Methicillin susceptible Staphylococcus aureus infection as the cause of diseases classified elsewhere Category: Medical Plan Assessment & Plan: 1. Right thumb distal phalanx osteomyelitis, S/P I&D DOS: 05/11/25 Several foreign body removal procedures done at [facility], [place] [facility], and by the patient at home Symptoms began ~03/08/25, and he believes he got a splinter in there sometime while at work installing windows. The patient appears to be doing well post-operatively I educated him about the post-operative course He has completed his Abx and his PICC line was removed on 06/22/25 I discussed activity modifications He will continue to work on ROM exercises at home, and massage about the tip & length of his thumb to work on desensitization We discussed OT hand therapy, he refused at this time and says he will continue to work on exercises and desensitization at home. Because of the concavity at the tip of the distal phalanx there are 2 small bone ends that are somewhat prominent and near the skin surface.? I showed this to the patient and let him know that if he continues to have tenderness over the more radial tip, 1 option may be to remove that tip of bone.? He understands this would be operative and require a period of healing and time away from work again. He is not interested in this at this time. 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 He was eager to return to work and was given a note for work to return to full duty, effective tomorrow. Patient reports this is likely a work injury, but was denied workmans' comp. He is somewhat disappointed by the fact that this injury was not deemed comfortable by workmen's compensation because there was no official date of injury. He is eager to return to work. He will follow up prn Scribed for Marlene Harrington MD by Adalberto Bazzi, expert medical writer, on 06/23/25 at 9:05 AM, EST. Orders: Orders XR hand RT min 3V Today M79.641 - Pain in right hand Coding Level of Care Code Global (25047) Diagnoses Osteomyelitis of right hand M86.9 Staphylococcus aureus bacteremia R78.81; B95.61
--- OUTSIDE RECORDS SUMMARY | 2025-06-23 09:03 | XMS_ITS | Clinical Summary ---
Author Organization [employer] Address [address] [facility] [address] [place] [address] Care Team Providers Care Quencher Operator Name Role Phone Silvia Fitzgerald MD [...] Type Department Care Team Description 06/09/2025 Telephone [facility] [address] [place] [address] Kelsea Pablo, RN appt. reschedule 06/09/2025 Telephone [facility] [address] [place] [address] Vida Cash, ENERGY CONTROL OFFICER Follow-up 06/08/2025 Orders Only GENERIC EXTERNAL DATA DEPARTMENT Provider, Generic External Data 05/21/2025 Telephone [facility] [address] [place] [address] Kelsea Pablo RN appt reschedule 05/18/2025 Orders Only GENERIC EXTERNAL DATA DEPARTMENT Provider, Generic External Data 05/18/2025 Patient Outreach [facility] [address] [place] [address] Silvia Fitzgerald MD Transition Of Care (Tcm) (HDF scheduled) 05/09/2025 Orders Only [facility] External Provider, [facility] from Last 3 Months Immunizations Immunization [...] Creatinine, Serum 0.93 0.5 - 1.4 mg/dL [facility] Estimated Glomerular Filt Rate >60 [facility] Comment:Chronic Kidney Disea se: Estimated GFR < 60 mL/min/1.34c7Pbyvpb Kidney Disease: Estimated GFR < 15 mL/min/1.73m2 06/08/2025 1:18 PM EDT 06/08/2025 4:28 PM EDT Generic External Data Provider LAB BLOOD ORDERAB LES Final Result Performing Organization Address [facility]/ZIP Co de Phone Number [facility] [address] [place] [phone] * (ABNORMAL) Creatine Kinase, Total (06/08/2025 1:18 PM EDT) Only the most recent of2 resultswithin the time period is included. Pathologist [facility] [place] Creatine Kinase Total 202(H) 38 - 174 U/L [facility] 06/08/2025 1:18 PM EDT 06/08/2025 4:28 PM EDT Generic External Data Provider LAB BLOOD ORDERAB LES Final Result Performing Organization Address City/[facility]/ZIP Co de Phone Number [facility] [address] [place] [phone] * Hold Lavender - Possible Hematology (05/18/2025 11:00 AM EDT) Hold Lavender - Possible Hematololgy SEE NOTE [facility] Comment:Specimen will be hel d untested for 8 hours. Call Hematologyif testing is desired. 05/18/2025 11:0 0 AM EDT 05/18/2025 1:17 PM EDT us Generic External Data Provider HISTORICAL/NON OR DERABLE LABS Final Result [facility] [address] [place] [phone] * XR Chest 1 View (05/14/2025 3:20 PM EDT) Anatomical Region Laterality Modality Chest Radiographic Susan ging 05/14/2025 3:20 PM EDT Narrative 05/14/2025 3:35 PM EDT [address] [address] XRay Report Signed Patient: Adalberto Mari MR#: [id number] : 1970 Acct:[id number] Age/Sex: 54 / M ADM Date: 05/09/25 Loc: .S3 360-[address]: En DUFFY Ordering Physician: En Carlisle Date of Service: 05/14/25 Procedure(s): XR chest 1V Accession Number(s): [id number] cc: En Carlisle; Silvia Fitzgerald MD EXAMINATION: [...] 05/14/25 1532 DD/ 1520 TD/TT: 05/14/25 1529 Fitting Room Operator: Procedure Note Donotuseinterpreter, Image - 05/14/[address] [address] XRay Report Signed Patient: Adalberto Mari CMR#: [id number] : 1970Acct:[id number] Age/Sex: 54 / MADM Date: 05/09/25 Loc: .S3 360-[address]: En DUFFY Ordering Physician: En Carlisle Date of Service: 05/14/25 Procedure(s): XR chest 1V Accession Number(s): [id number] cc: En Carlisle; Silvia Fitzgerald MD EXAMINATION: [...] 05/14/25 1532 DD/ 1520 TD/TT: 05/14/25 1529 Fitting Room Operator: [facility] External Provider IMG XR PROCEDURES Final Result * (ABNORMAL) CBC auto differential (05/09/2025 7:04 PM EDT) Only the most recent of2 resultswithin the time period is included. White Blood Count 5.4 4.8 - 10.8 X10*3/uL [facility] Red Blood Count 4.12(L) 4.60 - 5.80 X10*6/uL [facility] Hemoglobin 13.0(L) 14.0 - 18.0 g/dl [facility] Hematocrit 37.5(L) 42.0 - 52.0 % [facility] Mean Corpuscular Volume 91.0 80.0 - 98.0 fL [facility] Mean Corpuscular Hemoglobin 31.6 27.0 - 33.0 pg [facility] Mean Corpuscular HGB Conc 34.7 31.0 - 36.0 g/dl [facility] Red Cell Distribution Width 13.7 11.0 - 16.0 % [facility] Platelet Count 174 160 - 400 X10*3/uL [facility] Mean Platelet Volume 8.6(L) 9.4 - 12.4 fL [facility] Neutrophils Percent Auto 64.7 45 - 73 % [facility] Imm Gran Pct Auto 0.2 0.0 - 0.4 % [facility] Lymphocytes Percent Auto 24.4 20 - 40 % [facility] Monocytes Percent Auto 6.8 2 - 11 % [facility] Eosinophils Percent Auto 3.5 0 - 4 % [facility] Basophils Percent Auto 0.4 0 - 2 % [facility] NRBC Pct Auto 0.0 0.0 - 0.2 /100WBC [facility] Neutrophils Absolute Auto 3.5 2.0 - 8.3 x10*3/uL [facility] Imm Gran Abs Auto 0.01 0.00 - 0.03 X10*3/uL [facility] Lymphocytes Absolute Auto 1.3 1.2 - 4.9 X10*3/uL [facility] Monocytes Absolute Auto 0.4 0.1 - 1.2 X10*3/uL [facility] Eosinophils Absolute Auto 0.2 0.0 - 0.4 X10*3/uL [facility] Basophils Absolute Auto 0.0 0.0 - 0.2 X10*3/uL [facility] NRBC Abs Auto 0.000 0.0 - 0.012 X10*3/uL [facility] 05/09/2025 7:04 PM EDT 05/09/2025 7:09 PM EDT us Generic External Data Provider LAB BLOOD ORDERAB LES Final Result [facility] [address] [place] [phone] * Sed Rate by Modified Komalren (05/09/2025 7:04 PM EDT) Only the most recent of2 resultswithin the time period is included. Erythrocyte Sedimentation Rate 10 0 - 15 MM/HR [facility] Comment:Patients with polycy themia and many hemoglobin abnormalitiesmay have depressed sed rates whereas patients with anemiamay have elevated sed rates. 05/09/2025 7:04 PM EDT 05/09/2025 7:09 PM EDT us Generic External Data Provider LAB BLOOD ORDERAB LES Final Result Performing Organization Address [facility] de Phone Number [facility] [address] [place] [phone] * C-reactive Protein (05/09/2025 7:04 PM EDT) Only the most recent of2 resultswithin the time period is included. C Reactive Protein 0.23 < or = 0.50 mg/dL [facility] 05/09/2025 7:04 PM EDT 05/09/2025 7:09 PM EDT us Generic External Data Provider LAB BLOOD ORDERAB LES Final Result Performing Organization Address [facility] Co de Phone Number [facility] [address] [place] [phone] * Magnesium (05/09/2025 7:04 PM EDT) Magnesium 1.9 1.6 - 2.6 mg/dL [facility] 05/09/2025 7:04 PM EDT 05/09/2025 7:09 PM EDT Generic External Data Provider LAB BLOOD ORDERAB LES Final Result Performing Organization Address [facility] Co de Phone Number [facility] [address] [place] [phone] * Lactic Acid (05/09/2025 7:04 PM EDT) Pathologist [facility] [place] Lactic Acid 1.5 0.5 - 2.0 mmol/L [facility] 05/09/2025 7:04 PM EDT 05/09/2025 7:09 PM EDT us Generic External Data Provider LAB BLOOD ORDERAB LES Final Result Performing Organization Address City/[facility]/ZIP Co de Phone Number [facility] [address] [place] [phone] * (ABNORMAL) Comprehensive Metabolic Panel (05/09/2025 7:04 PM EDT) Only the most recent of2 resultswithin the time period is included. Pathologist [facility] Sodium 138 135 - 145 mmol/L [facility] Potassium 4.3 3.3 - 5.1 mmol/L [facility] Chloride 105 96 - 108 mmol/L [facility] Carbon Dioxide 24 22 - 29 mmol/L [facility] Anion Gap 13 12 - 20 [facility] Urea Nitrogen (BUN) 13 9 - 16 mg/dL [facility] Creatinine, Serum 0.82 0.5 - 1.4 mg/dL [facility] Creatinine Clr Calc Pharmacy 95.1 [facility] Comment:eGFR (calculated fro m the MDRD study equation) and eCrCl(calculated from the Cockcroft-Gault equation) are based ondifferent parameters and may not yield comparable results.If eCrCl result is absurd, please check patient'sheight/weight. Estimated Glomerular Filt Rate >60 [facility] Comment:Chronic Kidney Disea se: Estimated GFR < 60 mL/min/1.98r3Qwphng Kidney Disease: Estimated GFR < 15 mL/min/1.73m2 Glucose 138(H) 60 - 115 mg/dL [facility] Calcium 8.8 8.4 - 10.2 mg/dL [facility] Bilirubin, Total 0.7 0.0 - 1.0 mg/dL [facility] Aspartate Amino Transferase 27 5 - 37 U/L [facility] Alanine Aminotransferase 27 0 - 40 U/L [facility] Total Protein 6.7 6.5 - 8.0 g/dL [facility] Albumin Level 4.1 3.5 - 5.0 g/dL [facility] Alkaline Phosphatase 72 39 - 117 U/L [facility] 05/09/2025 7:04 PM EDT 05/09/2025 7:09 PM EDT us Generic External Data Provider LAB BLOOD ORDERAB LES Final Result Performing Organization Address City/State/[facility] Co de Phone Number [facility] [address] [place] [phone] * CT Hand w/ Contrast Right (05/09/2025 3:23 PM EDT) Anatomical Region Laterality Modality Upper Extremities, Hand Right Computed Tomography 05/09/2025 3:23 PM EDT Narrative 05/09/2025 3:25 PM EDT [place] [address] [address] Scan Report Signed Patient: Adalberto Mari MR#: [id number] [id number] : 1970 Acct:[id number] Age/Sex: 54 / M ADM Date: 05/09/25 Loc: HO.ED Attending Dr: Ordering Physician: Nakia Hartley PA-C Date of Service: 05/09/25 Procedure(s): CT hand RT w IV con Accession Number(s): [id number] cc: Nakia Hartley PA-C; Silvia Fitzgerald MD Report Number: [id number]: Total DLP = 111.00 mGy-cm CLINICAL HISTORY: [...] 05/09/25 1524 DD/ 1523 TD/TT: 05/09/25 1523 Fitting Room Operator: Procedure Note Donotuseinterpreter, Image - 05/09/[address] [place] [address] [address] Scan Report Signed Patient: Adalberto Mari CMR#: [id number] : 1970Acct:[id number] Age/Sex: 54 / MADM Date: 05/09/25 Loc: HO.ED Attending Dr: Ordering Physician: Nakia Hartley PA-C Date of Service: 05/09/25 Procedure(s): CT hand RT w IV con Accession Number(s): [id number] cc: Nakia Hartley PA-C; Silvia Fitzgerald MD Report Number: [id number]: Total DLP = 111.00 mGy-cm CLINICAL HISTORY: [...] 05/09/25 1524 DD/ 1523 TD/TT: 05/09/25 1523 Fitting Room Operator: us [facility] External Provider IMG CT PROCEDURES Edited Result - Final * XR Hand 3+ Views Right (05/09/2025 12:57 PM EDT) Anatomical Region Laterality Modality Upper Extremities, Hand Right [facility] 05/09/2025 12:5 7 PM EDT Narrative 05/09/2025 12:59 PM EDT [address] [address] XRay Report Signed Patient: Adalberto Mari MR#: [id number] : 1970 Acct:[id number] Age/Sex: 54 / M ADM Date: 05/09/25 Loc: HO.ED Attending Dr: Ordering Physician: Nakia Hartley PA-C Date of Service: 05/09/25 Procedure(s): XR hand RT min 3V Accession Number(s): [id number] cc: Nakia Hartley PA-C; Silvia Fitzgerald MD [...] 05/09/25 1259 DD/ 1257 TD/TT: 05/09/25 1257 Fitting Room Operator: Procedure Note Donotuseinterpreter, Image - 05/09/[address] [address] XRay Report Signed Patient: Adalberto Mari CMR#: [id number] : 1970Acct:[id number] Age/Sex: 54 / MADM Date: 05/09/25 Loc: HO.ED Attending Dr: Ordering Physician: Nakia Hartley PA-C Date of Service: 05/09/25 Procedure(s): XR hand RT min 3V Accession Number(s): [id number] cc: Nakia Hartley PA-C; Silvia Fitzgerald MD [...] 05/09/25 1259 DD/ 1257 TD/TT: 05/09/25 1257 Fitting Room Operator: [facility] External Provider IMG XR PROCEDURES Edited [...] detection of this assay. The [employer] Systems Engineer HIV Ag/Ab Combo assay result and supplemental assay results should be interpreted in conjunction with the patient's clinical presentation, history and other laboratory results. If the results are inconsistent with clinical evidence, additional testing is suggested to confirm the result. 03/12/2020 4:40 PM EDT Santos Haley MD HISTORICAL/NON ORDERABLE LABS Fi nal Result [facility] Anywhere [address] from Last 3 Months or Most Recently Relevant to Health Maintenance [place] [address] [place] [address] C3 Care Teams Quencher Operator Relationship Specialty Start Date End Date Silvia Fitzgerald MD [address] [place] [phone] PCP - General Family Medicine 12/12/18
== END 2025-06-23 09:48 | disposition home or self-care (01) ==
LOC: HO.HOS 08:37
PROVIDERS: PCP Internal Medicine; Visit Provider Orthopaedic Surgery
DX: M86.9 Osteomyelitis, unspecified (principal); R78.81 Bacteremia; B95.61 Methicillin susceptible Staphylococcus aureus infection as the cause of diseases classified elsewhere
CPT/HCPCS: 99024

== ENCOUNTER 2025-06-23 08:37 | Outpatient (REF) | payer MEDICAID, SELFPAY ==
--- NOTE | ~2025-06-23 | XR_ITS ---
EXAMINATION: XR HAND 3 OR MORE VIEWS RIGHT HISTORY: M79.641 - Pain in right hand COMPARISON: Comparison is made with the prior examination dated 05/20/2025. FINDINGS: Three views of the right hand are submitted. Again seen is an osteolytic defect involving the tip of the distal phalanx of the thumb. There is no fracture or dislocation. 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 There is a soft tissue defect involving the distal thumb. XR/XR hand RT min 3V IMPRESSION: Stable osteolytic defect involving the tip of the distal phalanx of the thumb. Electronically signed by: Eron Reardon MD 06/23/2025 09:23 AM EDT
== END 2025-06-23 08:38 | disposition home or self-care (01) ==
LOC: HO.HOSX 08:37
PROVIDERS: PCP Internal Medicine; Visit Provider Orthopaedic Surgery
DX: M86.9 Osteomyelitis, unspecified (principal); R78.81 Bacteremia; B95.61 Methicillin susceptible Staphylococcus aureus infection as the cause of diseases classified elsewhere; Z47.1 Aftercare following joint replacement surgery
CPT/HCPCS: 73130; 99212

== ENCOUNTER → 2025-06-23 09:07 | Outpatient (BNV) | payer MEDICAID, SELFPAY | PROVIDERS: PCP Internal Medicine; Visit Provider Radiology Diagnostic Radiology | DX: M89.541 Osteolysis, right hand (principal) | CPT/HCPCS: 73130 ==

== ENCOUNTER 2025-08-11 13:40 | Outpatient (AMB) | payer MEDICAID, SELFPAY ==
[2025-08-11 14:16] VITALS: BMI 30.8
--- NOTE | 2025-08-11 14:16 | A.OFFVIS_ITS ---
Vital Signs 08/11/25 14:16 Height 5 ft 5 in Weight 185 lb BMI 30.8 Intake Visit Reasons: PO-Right Thumb I&D 05/11/25 Intake Note: Adalberto is a 54 year old right hand dominant male who presents today for a Post- operative Visit status post Right Thumb I&D, DOS: 05/11/[address] Harrington. Patient was last seen by Dr. Harrington on 06/23/25. At that time patient was doing well and released to return to work without restrictions. Patient is now complaining of excruciating pain on the tip of his thumb, making it difficult to grab anything , and limiting him from going in to work. Patient feels like his bone is touching the skin. 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 Allergies No Known Allergies (No Known Allergies*) Allergy (Verified 08/11/25 14:17) HPI HPI PO-Right Thumb I&D 05/11/25: Details: Adalberto is a 54 year old right hand dominant male who presents today for complaint of increasing pain in the radial tip of the right thumb. He says this part of his thumb has been hurting continuously since after his surgery. The ulnar side of the tip of his thumb got better but this side did not improve. He also feels like it has gotten worse over the last several weeks. He denies any new injury to the thumb. He denies any problems with drainage. . He is S/P Right Thumb I&D, DOS: 05/11/25 for right thumb distal phalanx osteomyelitis. Following his I and D he was treated by our Infectious Disease team with a PICC line and a course of IV antibiotics Cultures grew out staph aureus, MSSA He reports doing well and returned to work with no concerns at first. Patient is now complaining of excruciating pain on the tip of his thumb, making it difficult to grab anything , and limiting him from going in to work. Patient feels like his bone is touching the skin. 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 [facility] Medical History Tobacco user (12/31/18) Chronic alcoholism in remission (03/21/18) Back pain History of ETOH abuse Chronic hepatitis C Hernia Opioid use disorder Intravenous drug abuse in remission Anxiety Depression HTN (hypertension) Surgical History History of amputation of finger Hx of surgical amputation of finger Family History Mother Lung cancer Social History Household Members: Significant Other Housing: Apartment Are you a primary care support representative to a significant other at home: No Do you presently have visiting nurse or other home services: No Alcohol intake: former 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 Patient Tobacco Use Status: Current everyday Tobacco user Tobacco use type: Cigarette Cigarette Packs Per Day: 1 Cigarettes Per Day: 20.0 e-Cigarette/Vaping Use: Never Used Second Hand Smoke Exposure: No Substance Use Type: Marijuana Advance Directives Date on File: 08/04/21 service: No Current occupational status: unemployed Physical Exam Vital Signs: BMI result Body Mass Index 30.8 Extrem Other: The patient was alert oriented and in no acute distress. He is complaining of increasing pain in the radial tip of the right thumb. There is a small crack in the skin in the hyponychium just palmar to the nail plate on the radial tip of the thumb. This does appear to be partial-thickness and there is no drainage. He is however very tender to palpation over this radial tip of the thumb. No tenderness over the ulnar tip of the thumb. No tenderness about the base of the distal phalanx of the right thumb Painless flexion and extension of the right thumb at the IP MCP and basal joints. The nail looks like it has grown in well and is intact. Radiographs: Radiographs three views of the right hand with attention to the thumb were taken today and reviewed by me today in clinic. They show: Prominent spikes at the tip of the distal phalanx of the right thumb both radially and ulnarly after loss of bones more centrally due to osteomyelitis. No evidence of new or progressive osteomyelitis when comparing today's radiographs to his previous radiographs. Assessment & Plan Assessment & Plan (1) Bone pain: Code(s): M89.8X9 - Other specified disorders of bone, unspecified site Category: Medical Plan Assessment and plan: 1. Right thumb pain with prominent bone at radial tip of distal phalanx following debridement of bone for osteomyelitis. May also have overlying neuroma. I educated the patient about this condition We discussed operative and non operative treatment options and I am recommending surgery. He wishes to proceed with surgery. The risks and benefits of operative treatment were discussed with the patient and the patient wishes to proceed with surgery. These risks include, but are not limited to risk of damage to blood vessels, nerves, tendons, infection, recurrence, incomplete relief of preoperative symptoms, persistent pain, possible need for further surgery and the risks associated with regional blocks and anesthesia. The plan is to take the patient to the operating room 09/14/2025 if we can accommodate it to help him with minimizing work time off, for the following procedures: 1. Right thumb partial excision of bone 2. Possible neurectomy All of the preoperative paperwork including the consent was filled out today. All the patient's questions were answered. The patient understands that they will be contacted by our coordinator of online programs soon to schedule this procedure Orders: Orders XR hand RT min 3V Today M79.641 - Pain in right hand Coding Level of Care Code Est Pt Level 4 (70518) Diagnoses Bone pain M89.8X9
--- OUTSIDE RECORDS SUMMARY | 2025-08-12 07:18 | XMS_ITS | Clinical Summary ---
Author Organization [employer] Address [address] [facility] 7t [place] [address] Care Team Providers Care Web Production Artist Name Role Phone Silvia Fitzgerald MD Primary [...] 08/25/2022 Seborrheic dermatitis 08/25/2022 Chronic hepatitis C ([facility]/HCC) 12/31/2018 Depressive disorder 12/31/2018 Anxiety 03/21/2018 Chronic [...] Encounters Date Type Department Care Team Description 08/11/2025 Orders Only [facility] External Provider, [facility] 06/09/2025 Telephone [facility] [address] [place] [phone] Kelsea Pablo, RN appt. reschedule 06/09/2025 Telephone [facility] MEDICINE [address] [place] [phone] Vida Cash, BR[facility] [employer] HAND Follow-up 06/08/2025 Orders Only GENERIC EXTERNAL DATA DEPARTMENT Provider, Generic External Data 05/21/[address] [address] Kelsea Pablo, JESSICA appt reschedule 05/18/2025 Orders Only GENERIC EXTERNAL DATA DEPARTMENT Provider, Generic External Data 05/18/2025 Patient Outreach [facility] [address] [place] [address] Silvia Fitzgerald MD Transition Of Care (Tcm) (HDF scheduled) from Last 3 Months Immunizations Immunization Administration Dates Next Due Influenza injectable quadrivalent preservative f ree 06/09/2021 Influenza, IIV3, injectable 06/09/2021 Moderna Covid-19 Vaccine 12+ 07/06/2021,05/27/20 21 Tdap 03/15/2021,02/08/2016 Social History Tobacco Use Types Packs/Day Years Used Date Smoking Tobacco: Every Day Cigarettes 0.5 43.9 Started: 1981 Smokeless Tobacco: Never Tobacco Cessation:Ready [...] Years (1 of 2 - PCV) 1987 RSV Patients and Patients Aged 60 years or older (1 - Risk 50-74 years 1-dose series) 2018 Zoster Vaccines (1 of 2) 2018 Tobacco Screening 03/25/2025 03/25/2024 COVID-19 Vaccine (3 - 2024-2 6 season) 2025 07/06/2021, 05/27/2021 Influenza Vaccine (#1) 2025 , 06/09/2021 DTaP/Tdap/Td Vaccines (3 - T d or Tdap) 03/15/2031 03/15/2021, 02/08/2016 HIV Screening Completed 03/12/2020 HIB Vaccines Aged [...] Procedure Name Priority Date/Time Associated Diagnosis Comments XR HAND 3+ VIEWS RIGHT Routine 08/11/2025 3:01 PM EST XR HAND 3+ VIEWS RIGHT Routine 06/23/2025 9:07 AM EDT CREATINE KINASE, TOTAL Routine 06/08/2025 1:18 PM EDT CREATININE, SERUM Routine 06/08/2025 1:1 8 PM EDT HOLD LAVENDER - POSSIBLE HEMATOLOGY Routine 05/18/2025 11:00 AM EDT CREATINE KINASE, TOTAL Routine 05/18/2025 11:00 AM EDT CREATININE, SERUM Routine 05/18/2025 11: 00 AM EDT XR CHEST 1 VIEW Routine 05/14/2025 3:20 PM EDT ZZZ HISTORICAL HIV AB/AG Routine 03/12/2020 4:40 PM EDT from Last 3 Months or Most Recently Relevant to Health Maintenance Results * XR Hand 3+ Views Right (08/11/2025 3:01 PM EST) Only the most recent of2 resultswithin the time period is included. Anatomical Region Laterality Modality Upper Extremities, Hand Right [facility] 08/11/2025 3:01 PM EST Narrative 08/11/2025 3:22 PM EST [facility] [address] [place] [address] [place] [address] XRay Report Signed Patient: Adalberto Mari MR#: [id number] : 1970 Acct:[id number] Age/Sex: 54 / M ADM Date: 08/11/25 Loc: PINA Attending Dr: Minor DUFFY Ordering Physician: Marlene Harrington MD Date of Service: 08/11/25 Procedure(s): XR hand RT min 3V Accession Number(s): [id number] cc: Silvia Fitzgerald MD; Marlene Harrington MD Reason for Exam: M79.641 - Pain in right hand EXAMINATION: XR HAND, RIGHT CLINICAL INFORMATION: M79.641 - Pain in right hand , follow-up osteomyelitis involving tuft of the great digit. COMPARISON: 06/23/2025 TECHNIQUE: PA, lateral, and oblique views of the right hand. FINDINGS: Again seen is a defect involving the tuft of the thumb. Demonstrates a beaded shaped contour. Margins are distinct increasing bone mineral density. However, there is a somewhat tubular shaped lucency at the central distal remaining tuft. 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 There are also stable mild degenerative changes in the hand. XR/XR hand RT min 3V IMPRESSION: Again identified are destructive changes in the tuft of the distal phalanx of the right thumb with increased bone mineral density consistent with improvement. Electronically signed by: Jadiel Ramirez MD 08/11/2025 03:[address] [facility] Dictated By: Jadiel Ramirez MD Signed By: <Electronically signed by Jadiel Ramirez MD in OV> 08/11/25 1520 DD/ 1501 TD/TT: 08/11/25 1506 Help Desk Intern: Procedure Note Donotuseinterpreter, Image - 08/11/2025 [facility] [address] [place] [address] Drive [address] [place] [address] XRay Report Signed Patient: Adalberto Mari CMR#: [id number] : 1970Acct:[id number] Age/Sex: 54 / MADM Date: 08/11/25 Loc: HO.HOSX Attending Dr: Minor DUFFY Ordering Physician: Marlene Harrington MD Date of Service: 08/11/25 Procedure(s): XR hand RT min 3V Accession Number(s): [id number] cc: Silvia Fitzgerald MD; Marlene Harrington MD Reason for Exam: M79.641 - Pain in right hand EXAMINATION: XR HAND, RIGHT CLINICAL INFORMATION: M79.641 - Pain in right hand , follow-up osteomyelitis involving tuft of the great digit. COMPARISON: 06/23/2025 TECHNIQUE: PA, lateral, and oblique views of the right hand. FINDINGS: Again seen is a defect involving the tuft of the thumb. Demonstrates a beaded shaped contour. Margins are distinct increasing bone mineral density. However, there is a somewhat tubular shaped lucency at the central distal remaining tuft. 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 There are also stable mild degenerative changes in the hand. XR/XR hand RT min 3V IMPRESSION: Again identified are destructive changes in the tuft of the distal phalanx of the right thumb with increased bone mineral density consistent with improvement. Electronically signed by: Jadiel Ramirez MD 08/11/2025 03:20 PM EST RP Dictated By: Jadiel Ramirez MD Signed By: <Electronically signed by Jadiel Ramirez MD in OV> 08/11/25 1520 DD/ 1501 TD/TT: 08/11/25 1506 Help Desk Intern: [facility] External Provider IMG XR PROCEDURES Final Result * Creatinine, Serum (06/08/2025 1:18 PM EDT) Only the most recent of2 resultswithin the time period is included. Creatinine, Serum 0.93 0.5 - 1.4 mg/dL [facility] Estimated Glomerular Filt Rate >60 [facility] Comment:Chronic Kidney Disea se: Estimated GFR < 60 mL/min/1.17c3Zbtivt Kidney Disease: Estimated GFR < 15 mL/min/1.73m2 06/08/2025 1:18 PM EDT 06/08/2025 4:28 PM EDT Generic External Data Provider LAB BLOOD ORDERAB LES Final Result [facility] [address] [place] [phone] * (ABNORMAL) Creatine Kinase, Total (06/08/2025 1:18 PM EDT) Only the most recent of2 resultswithin the time period is included. Creatine Kinase Total 202(H) 38 - 174 U/L [facility] 06/08/2025 1:18 PM EDT 06/08/2025 4:28 PM EDT us Generic External Data Provider LAB BLOOD ORDERAB LES Final Result Performing Organization Address [facility] Co de Phone Number [facility] [address] [place] [phone] * Hold Lavender - Possible Hematology (05/18/2025 11:00 AM EDT) Hold Lavender - Possible Hematololgy SEE NOTE [facility] Comment:Specimen will be hel d untested for 8 hours. Call Hematologyif testing is desired. 05/18/2025 11:0 0 AM EDT 05/18/2025 1:17 PM EDT Generic External Data Provider HISTORICAL/NON OR DERABLE LABS Final Result Performing Organization Address [facility] de Phone Number [facility] [address] [place] [phone] * XR Chest 1 View (05/14/2025 3:20 PM EDT) Anatomical Region Laterality Modality Chest Radiographic Susan ging 05/14/2025 3:20 PM EDT Narrative 05/14/2025 3:35 PM EDT [address] [address] XRay Report Signed Patient: Adalberto Mari MR#: [id number] : 1970 Acct:[id number] Age/Sex: 54 / M ADM Date: 05/09/25 Loc: HO.S3 360-[address]: En DUFFY Ordering Physician: En Carlisle Date of Service: 05/14/25 Procedure(s): XR chest 1V Accession Number(s): [id number] cc: En Carlisle; Silvia Fitzgerald MD EXAMINATION: [...] 05/14/25 1532 DD/ 1520 TD/TT: 05/14/25 1529 Help Desk Intern: Procedure Note Donotuseinterpreter, Image - 05/14/2025 [place] [address] XRay Report Signed Patient: Adalberto Mari CMR#: [id number] : 1970Acct:[id number] Age/Sex: 54 / MADM Date: 05/09/25 Loc: HO.S3 360-[address]: En DUFFY Ordering Physician: En Carlisle Date of Service: 05/14/25 Procedure(s): XR chest 1V Accession Number(s): [id number] cc: En Carlisle; Silvia Fitzgerald MD EXAMINATION: [...] 05/14/25 1532 DD/ 1520 TD/TT: 05/14/25 1529 Help Desk Intern: [facility] External Provider IMG XR PROCEDURES Final Result * HIV AB/AG (03/12/2020 4:40 PM EDT) [...] of detection of this assay. The [facility] Director HIV Ag/Ab Combo assay result and supplemental assay results should be interpreted in conjunction with the patient's clinical presentation, history and other laboratory results. If the results are inconsistent with clinical evidence, additional testing is suggested to confirm the result. 03/12/2020 4:40 PM EDT Santos Haley MD HISTORICAL/NON ORDERABLE LABS Fi nal Result [facility] Anywhere [address] from Last 3 Months or Most Recently Relevant to Health Maintenance Insurance [facility] [employer] [place] C3 Care Teams Web Production Artist Relationship Specialty Start Date End Date Silvia Fitzgerald MD [address] [place] [phone] PCP - General Family Medicine 12/12/18
--- OUTSIDE RECORDS SUMMARY | 2025-08-12 07:18 | XMS_ITS | Encounter Summary ---
Author Organization [employer] Address [address] [facility] [address] [place] [address] Care Team Providers Care Reacher Name Role Phone Silvia Fitzgerald MD Primary Care Provider + Encounter Details Date Type Department Care Team (Late st Contact Info) Description 08/11/2025 Orders Only [facility] External Provider, [facility] Social History Tobacco Use Types Packs/Day Years Used Date Smoking Tobacco: Every Day Cigarettes 0.5 43.9 Started: 1981 Smokeless Tobacco: Never Alcohol Use [...] as of this encounter Plan of Treatment Not on file documented as of this encounter Procedures Procedure Name Priority Date/Time Associated Diagnosis Comments XR HAND 3+ VIEWS RIGHT Routine 08/11/2025 3:01 PM EST documented in this encounter Results * XR Hand 3+ Views Right (08/11/2025 3:01 PM EST) Anatomical Region Laterality Modality Upper Extremities, Hand Right [facility] 08/11/2025 3:01 PM EST Narrative 08/11/2025 3:22 PM EST [facility] [address] [place] [address] Drive [address] [place] [address] XRay Report Signed Patient: Adalberto Mari MR#: [id number] : 1970 Acct:[id number] Age/Sex: 54 / M ADM Date: 08/11/25 Loc: PINA Attending Dr: Minor DUFFY Ordering Physician: Marlene Harrington MD Date of Service: 08/11/25 Procedure(s): XR hand RT min 3V Accession Number(s): [id number] cc: Silvia Fitzgerald MD; Marlene Harrington MD [...] by: Jadiel Ramirez MD 08/11/2025 03:20 PM [facility] Dictated By: Jadiel Ramirez MD Signed By: <Electronically signed by Jadiel Ramirez MD in OV> 08/11/25 1520 DD/ 1501 TD/TT: 08/11/25 1506 Advanced Quality Engineer: Procedure Note Donotuseinterpreter, Image - 08/11/2025 [facility] [address] [place] [address] XRay Report Signed Patient: Adalberto Mari [facility]#: [id number] : 1970Acct:[id number] Age/Sex: 54 / MADM Date: 08/11/25 Loc: PINA Attending Dr: Minor DUFFY Ordering Physician: Marlene Harrington MD Date of Service: 08/11/25 Procedure(s): XR hand RT min 3V Accession Number(s): [id number] cc: Silvia Fitzgerald MD; Marlene Harrington MD [...] by: Jadiel Ramirez MD 08/11/2025 03:20 PM [facility] Dictated By: Jadiel Ramirez MD Signed By: <Electronically signed by Jadiel Ramirez MD in OV> 08/11/25 1520 DD/ 1501 TD/TT: 08/11/25 1506 Advanced Quality Engineer: [facility] External Provider IMG XR PROCEDURES Final Result documented in this encounter Visit Diagnoses Not on filedocumented in this encounter Care Teams Reacher Relationship Specialty Start Date End Date Silvia Fitzgerald MD [address] [place] [phone] PCP - General Family Medicine 12/12/18 documented as of this encounter
--- OUTSIDE RECORDS SUMMARY | 2025-08-12 07:18 | XMS_ITS | Data Portability ---
Author Organization [facility], Main Office Address [address] [place] [address] Care Team Providers Care Headlight Adjuster Name Role Phone [facility] OTHER ALEJANDRA FOSS Primary Care Provider [phone] SCOTT XAVIER OTHER RIGHT CHOICE OTHER Assessment No assessment recorded. Plan of Treatment Reminders Order Date Submit Date Provider Last Modified By Organization Details Last Modified Time Details Appointments None record ed. Lab None record ed. Referral None record ed. Procedures None record ed. Surgeries None record ed. Imaging None record ed. Medication Orders None record ed. Patient TargetsNo targets recorded. Patient Instructions Encounter Date Encounter Id Patient Instructions Last Modified By Organization Details Last Modified Time 11/29/2021 [id number] Dispo -- home when IV abx complete, ~3 weeks Total bwl-gkpg-lq-face time spent reviewing hospital records on 11/28/21 was 40 minutes Not available 11/29/2021 21:01:13 12/20/2021 [id number] Total time spent 15 minutes, >50% in [id number]-sbcq counseling and coordination of care [email or web address] Not available 12/21/2021 09:22:15 12/21/2021 [id number] F/U Appointments : Pt will schedule next appointment at [facility] Needs ID f/u 4-5 weeks Total time spent on discharge: 35 minutes Script given to pt for doxycycline Pt received Suboxone 12-3 mg SL this am and will be discharging with 18 remaining films [email or web address] Not available 12/21/2021 10:14:51 Reason for Referral None Reported. Problems Name Problem SNOMED Code Status Onset Date Resolution Date Notes Provider Name and Address Organization Details Recorded Time Spinal epidural abscess 54968783 Active 2020 MAYLIN PARKS, PA-C [address], [address], [place], [address], [facility] 20:06:17 Bacteremi a 4894444 Active 2020 MAYLIN PARKS, PA-C [address], [address], [place], [address], [facility] 20:06:27 Acute retention of urine 117825595 Active 2020 MAYLIN PARKS, PA-C [address], [address], [place], [address], [facility] 20:06:37 Acute tubular necrosis 08499510 Active 2020 MAYLIN PARKS, PA-C [address], [address], [place], [address], [facility] 20:07:03 Opioid dependenc e 62731431 Active 2020 MAYLIN PARKS, PA-C [address], [address], [place], [address], [facility] 20:07:15 Cauda equina syndrome 442366322 Active 2020 MAYLIN PARKS, PA-C [address], [address], [place], [address], [facility] 20:07:24 Essential hypertens ion 96283561 Active 2020 MAYLIN PARKS, PA-C [address], [address], [place], [address], [facility] 20:07:31 Methicill in resistant Staphyloc occus aureus infection 269937706 Active 2020 bacteremi a and SEA MAYLIN PARKS, PA-C [address], [place], [address], [facility] 20:07:50 Tobacco dependenc e syndrome 94873030 Active 2020 MAYLIN PARKS, PA-C [address], [address], [place], [address], [facility] 20:08:01 Chronic hepatitis C 867203313 Active 2020 MAYLIN PARKS PA-C [address], [place], [address], [facility] 20:08:13 Chronic constipat ion 705407150 Active 2020 MAYLIN PARKS PA-C [address], [place], [address], [facility] 20:08:21 Post-trau matic stress disorder 12184207 Active 2020 MAYLIN PARKS PA-C [address], [place], [address], [facility] 20:08:29 Anemia 951776929 Active 2020 MAYLIN PARKS PA-C [address], [place], [address], [facility] 1 20:08:43 Abscess in epidural space of lumbar spine 274328924 Active 2021 Anusha Herrera MD [address], [place], [address], [facility] 2 01:55:26 Bacteremi a caused by Gram-nega tive bacteria 221922893842 Active 2021 Anusha Herrera MD [address], [place], [address], [facility] 2 01:57:29 Bacteremi a caused by Methicill in resistant Staphyloc occus aureus 810983188763 69568 Active 2021 Anusha Herrera MD [address], [address], [place], [address], [facility] 2 01:57:34 Low back pain 895824687 Active 2021 Anusha Herrera MD [address], [place], [address], [facility] 2 01:57:47 Viral hepatitis C 04042385 Active 2021 Anusha Herrera MD [address] [facility], [address], [place], [address], [facility] 2 01:58:36 Insomnia co-occurr ent and due to medical condition 872858185663 05 Active 2021 Anusha Herrera MD [address] [facility], [address], [place], [address], [facility] 2 02:02:40 Alcohol dependenc e 34795452 Active 2021 Anusha Herrera MD [address] [facility], [address], [place], [address], [facility] 2 02:04:14 Problem Notes None recorded. Medical Equipment None Reported. Allergies No known drug allergies Medications Not known to be on any medication Vitals Date Recorded Body height Body temperature Respiratory rate Heart rate Oxygen saturation Oxygen saturation in Arterial blood by Pulse oximetry Body mass index (BMI) Body weight Systolic And Diastolic Provider Name and Address Organization Details Last Updated DateTime 2 167.64 cm 97.2 [degF] 16 /min 94 /min 96 % 96 % 29.1 kg/m2 95266.0 6 g 105/79 mm[Hg] MAYLIN PARKS PA-C [address] [facility], [address], [place], [address], [facility] 2 19:45:09 Date Recorded Body height Body mass index (BMI) Body weight Heart rate Respiratory rate Body temperature Oxygen saturation Oxygen saturation in Arterial blood by Pulse oximetry Systolic And Diastolic Provider Name and Address Organization Details Last Updated DateTime 2 167.64 cm 29.1 kg/m2 39199.0 6 g 96 /min 21 /min 97.3 [degF] 99 % 99 % 105/79 mm[Hg] Anusha Herrera MD [address] [facility], [address], [place], [address], [facility] 2 17:44:32 Date Recorded Body height Body temperature Respiratory rate Oxygen saturation Oxygen saturation in Arterial blood by Pulse oximetry Systolic And Diastolic Provider Name and Address Organization Details Last Updated DateTime 2 167.64 cm 97.7 [degF] 16 /min 96 % 96 % 126/82 mm[Hg] MAYLIN PARKS PA-C [address] [facility], [address], [place], [address], [facility] 2 20:45:12 Date Recorded Body height Body temperature Heart rate Respiratory rate Oxygen saturation Oxygen saturation in Arterial blood by Pulse oximetry Systolic And Diastolic Provider Name and Address Organization Details Last Updated DateTime 2 167.64 cm 97.3 [degF] 69 /min 20 /min 96 % 96 % 109/70 mm[Hg] MAYLIN PARKS PA-C [address] [facility], [address], [place], [address], [facility] 2 09:16:15 Date Recorded Body height Body temperature Heart rate Respiratory rate Body mass index (BMI) Body weight Oxygen saturation Oxygen saturation in Arterial blood by Pulse oximetry Systolic And Diastolic Provider Name and Address Organization Details Last Updated DateTime 2 167.64 cm 98.2 [degF] 69 /min 20 /min 29.6 kg/m2 26735.8 4 g 98 % 98 % 109/70 mm[Hg] MAYLIN PARKS PA-C [address] [facility], [address], [place], [address], [facility] 2 09:24:24 Social History Question Answer Notes LastModified by Organization Details LastModified Time Tobacco Smoking Status Current Every Day Smoker MAYLIN PARKS PA-C [address] [facility], [facility] [address], [place], [address], [facility] 08/16/2021 16:20:20 Do You Have An Advance Directive? Yes Attempt Resuscitatio n; No Non-invasive Ventilation; Ok To Transfer To Hospital; No Dialysis; No Artificial Nutrition; Ok For Short-term Artificial Hydration [email or web address] Information not available 11/29/2021 How Many Years Have You Consumed Alcohol? 30 [email or web address] Information not available 08/16/2021 What Is Your Code Status? DNR/DNI [email or web address] Information not available 08/16/2021 Which Illicit Or Recreational Drugs Have You Used? Heroin, Cocaine, Cannabis, Dilaudid, OxyContin On Suboxone At [facility] [email or web address] Information not available 11/29/2021 How Many Years Have You Used Illicit Or Recreational Drugs? 25 [email or web address] Information not available 08/16/2021 Where Do You Live? [facility] [email or web address] Information not available 08/16/2021 Legal Guardian? No [email or web address] Information not available 08/16/2021 Do You Have A Medical Power Of Director Child Abuse Therapy? Yes No Form On Chart; [facility] References Elva Glover [phone] Information not available 08/16/2021 What Was The Date Of Your Most Recent Tobacco Screening? 11/29/2021 [email or web address] Information not available 11/29/2021 Do You Have An Out Of Hospital DNR? Yes [email or web address] Information not available 08/16/2021 Have You Ever Been Counseled For Unhealthy Alcohol Use? Yes [email or web address] Information not available 08/16/2021 How Much Tobacco Do You Smoke? 0.5 PPD [email or web address] Information not available 08/16/2021 Has Tobacco Cessation Counseling Been Provided? Yes [email or web address] Information not available 08/16/2021 On What Date Was Tobacco Cessation Counseling Provided? 11/29/2021 [email or web address] Information not available 11/29/2021 How Many Years Have You Smoked Tobacco? 40 [email or web address] Information not available 08/16/2021 Have You Used IV Drugs? Yes [email or web address] Information not available 08/16/2021 Sex: Unknown Functional Status Question Answer Note LastModified by Organizat ion Details LastModified Time How many times per week do you consume alcohol? 3-4 times per week Information not available 08/16/2021 Do you use any illicit or recreational drugs? Yes [email or web address] Information not available 08/16/2021 Do you or have you ever used any other forms of tobacco or nicotine? No [email or web address] Information not available 08/16/2021 What is your level of alcohol consumption? Heavy binge [email or web address] Information not available 08/16/2021 Mental Status None recorded. Family History Relationship Description Onset Age of this Age Resolved Age Notes LastModified by Organization Details LastModified Time Mother Opioid dependence opiate pills [email or web address] Not available 08/16/2021 16:56:14 Medical History No medical history recorded. Immunizations Vaccine Type Date Status Note Provider Nam e and Address Organization Details Recorded Time Influenza, split virus, quadrivalent, preservative 1 completed MAYLIN PARKS PA-C [address], [address], [place], [address], [facility] 08/16/2021 16:45:45 COVID-19, mRNA, LNP-S, PF, 100 mcg/0.5mL dose or 50 mcg/0.25mL dose 1 completed MAYLIN PARKS PA-C [address], [address], [place], [address], [facility] 08/16/2021 16:46:00 COVID-19, mRNA, LNP-S, PF, 100 mcg/0.5mL dose or 50 mcg/0.25mL dose 1 completed MAYLIN PARKS PA-C [address], [address], [place], [address], [facility] 08/16/2021 16:46:04 Tdap 1 completed MAYLIN PARKS PA-C [address], [address], [place], [address], [facility] 08/16/2021 16:46:31 Past Encounters Encounter ID Performer Location Encounter Start Date Encounter Closed Date Diagnosis/Indication Diagnosis SNOMED-CT Code Diagnosis ICD10 Code Diagnosis IMO Codes Diagnosis Note [id number] MAYLIN PARKS PA-C [facility] on [address] [place] [address] 08/16/2021 16:02:10 08/23/2021 13:57:26 Spinal epidural abscess 31215692 G06.1 Vanc 1250 mg IV q 24 h until 09/14/21-T ROUGH GOAL 15-20 PER IDID f/u with Dr. Tish Johnson 09/13/21 @ [address], CMP, Vanc trough weekly and faxed to [facility] ID -ordered for 08/19, 08/22, 08/29, 09/05, and 09/12Needs MRI lumbar spine to be done at [facility] prior to 09/13/21 ID appointmen t to assess status of epidural abscess Methicilli n resistant Staphylococcus aureus infection 845044023 A49.02 as above Bacteremia 4368012 R78.8 1 as above Acute rete ntion of urine 558673281 R33.8 resolved Acute tubu lar necrosis 10397389 N17.0 follow renal function Anemia 889796511 D64.9 follow CBC Cauda equina syndrome 19 5839164 G83.4 improvedfo llow clinically Chronic constipation 236 039912 K59.09 scheduled and prn bowel medsf/u prn Chronic hepatitis C 1283 14208 B18.2 outpatient f/u with ID Essential hypertension 58508314 I10 monitor BPs and adjust meds prn Opioid dependence 884854 00 F11.20 does not wish to resume MATWill need to taper Dilaudid Post-traum atic stress disorder 73972732 F43.10 Prazosin 4 mg po qhs for nightmares Tobacco de pendence syndrome 73916434 F17.200 counseled 4 minutes on the importance of cessationn ot interested in quitting at this time [id number] MAYLIN PARKS PA-C [facility] on [address] [place] [address] 08/19/2021 14:44:21 08/30/2021 15:03:15 Spinal epidural abscess 47728350 G06.1 subtherape utic Vanc-incre ase and split-dose to 750 mg IV q 12 h-repeat trough Sunday as previously ordered-Go al 15-20-Vanc tentativel y scheduled to complete 09/14/21-T ROUGH GOAL 15-20 PER IDID f/u with Dr. Tish Johnson 09/13/21 @ [address], CMP, Vanc trough weekly and faxed to [facility] ID -ordered for 08/22, 08/29, 09/05, and 09/12Needs MRI lumbar spine to be done at [facility] prior to 09/13/21 ID appointmen t to assess status of epidural abscess Acute rete ntion of urine 416314943 R33.8 resolved [id number] Keenan Elizondo MD [facility] on [address] [place] [address] 08/22/2021 13:21:04 08/25/2021 14:22:22 Cauda equina syndrome 294972344 G83.4 see abovemonit or for change in presentati on Spinal epi dural abscess 84903439 G06.1 see HPIspinal epidural abscess with cord compressio nEval by IR and underwent drainageEv al by neurosurge ry for worsening sx not a surgical candidate and continued on IV Ab with ID input now to complete 6 week course of vancomonit or med levelconti nue probioticu pdate ID and surgery with concerns Acute kidney injury 1466 9001 N17.8 see HPIeval by nephrology monitor renal functionav oid nephrotoxi c meds as able Acute rete ntion of urine 268622181 R33.8 this was an issue in hospitalmo nitor for sx Chronic constipation 236 463222 K59.09 bowel protocolmo nitor need to titrate meds Chronic hepatitis C 1283 23158 B18.2 carrying dxfollowed by IDmonitor LFT's as neededupda te ID with concerns Essential hypertension 17519486 I10 prazosin 4 mg qd (question used for night terrors)mo nitor bp and need to titrate Opioid dependence 928656 00 F11.20 hx of maintained on dilaudidmo nitor utilizatio nwean as able Post-traum atic stress disorder 82740185 F43.12 continue current medspsych eval prn Tobacco de pendence syndrome 42888605 F17.210 encourage quitting1 ppd at baseline [id number] MAYLIN PARKS PA-C [facility] on [address] [place] [address] 08/30/2021 11:23:47 09/02/2021 10:54:26 Spinal epidural abscess 23902493 G06.1 subtherape utic Vanc-incre ase dose from 750 mg IV q 12 h to 1 g IV q 12 h-repeat trough Sunday as previously ordered-Go al 15--Vanc tentativel y scheduled to complete 09/14/21-T ROUGH GOAL 15-20 PER IDID f/u with Dr. Tish Johnson 09/13/21 @ [address], CMP, Vanc trough weekly and faxed to [facility] ID -ordered for 08/22, 08/29, 09/05, and 09/12Needs MRI lumbar spine to be done at [facility] prior to 09/13/21 ID mundo moreno to assess status of epidural abscess Opioid dependence 092633 00 F11.20 Has decided to resume agonist therapy with buprenorph ine/naloxo ne-has been actively communicat ing with [facility] where he was previously a patientLen gthy discussion with patient about plan for Dilaudid taper-most of his pain is related to feeling stiff after he has been in bed-will add Flexeril 5 mg po tid-pt in agreement with this plan-Revie wed options for either lengthenin g the interval between prn doses or decreasing the dose-pt would prefer to keep the 4 mg option and try waiting closer to 6 hours and see how that goes before officially altering the time-he is concerned that he won't feel well if he goes to the 2 mgBased on pt's planned end-date for Vanc and, since he's on bid dosing, would be completing Vanc in the evening of Sun, 09/14 with a tentative d/c on 09/15.-thi s gives 16 days to taper off Dilaudid and start bupWill continue to work with patient on taper [id number] ARPIT STEELE [facility] on [address] [place] [address] 09/02/2021 14:15:25 09/06/2021 11:16:36 Post-traumatic stress disorder 33315564 F43.12 pt reports he was taking trazodone 200mg [id number] qhs prn was recently d/c'd d/t non use - new reports of pt sleep walking and engaging in sexual behavior with another resident - per notes, pt does not recall events and/or denies, staff have observed thisadding back trazodone 200mg qhs and monitor for effect? referring to psychother apypsych prnmonitor mood and behavior [id number] ARPIT STEELE [facility] on [address] [place] [address] 09/05/2021 14:16:06 09/07/2021 13:06:13 Post-traumatic stress disorder 94198217 F43.12 300mg qhs prn was recently d/c'd d/t non use - new reports of pt sleep walking and engaging in sexual behavior with another resident - per notes, pt does not recall events and/or denies, staff have observed thistrazod one 200mg qhs recently added - monitor for effect - pt reports he has been sleeping much better? referring to psychother apypsych prnmonitor mood and behavior - pleasant today Spinal epi dural abscess 82029127 G06.1 subtherape utic Vanc-incre ase dose from 750 mg IV q 12 h to 1 g IV q 12 h - vanco trough today 12 - increasing vanco to 1250mg W18-hxhtu trough friday 09/07-Goal 15-20-Vanc tentativel y scheduled to complete 09/14/21-T ROUGH GOAL 15-20 PER IDID f/u with Dr. Tish Johnson 09/13/21 @ [id number], CMP, Vanc trough weekly and faxed to [facility] ID -ordered for 08/22, 08/29, 09/05, and 09/12Needs MRI lumbar spine to be done at [facility] prior to 09/13/21 ID appointmen t to assess status of epidural abscessmon itor for pain controlmon itor labs prn [id number] MAYLIN PARKS PA-C [facility] on [address] [place] [address] 09/13/2021 16:46:09 09/15/2021 14:17:01 Methicillin resistant Staphylococcus aureus infection 875807135 A49.02 Finish Vanc tomorrow night then d/c PICC and start Doxycyclin e 100 mg po bid x 6 weeksID f/u 4-6 weeks Opioid dependence 344588 00 F11.20 Pt with prior Rx Suboxone but has not had since early July 2021.Will d/c Dilaudid effective 1469 on 09/14/21 art Suboxone 8-2 mg SL q am-will give #8 no refills to carry him to his appointmen t-monitor for opiate w/d [id number] MAYLIN PARKS PA-C [facility] on [address] [place] [address] 09/14/2021 13:15:20 09/19/2021 13:19:06 Methicillin resistant Staphylococcus aureus infection 501684307 A49.02 Finish Vanc tonight then d/c PICC and start Doxycyclin e 100 mg po bid x 6 weeksID f/u 4-6 weeksAs pt does not have a PCP at this time, script given for CBCD, CMP, ESR, CRP weekly x 6 weeks [address] results to [address] Johnson, [facility] ID fax Cauda equina syndrome 19 8909057 G83.4 Resolvedfo llow clinically Anemia 359773011 D64.9 Improved Weight gain 7484194 R63. 5 No evidence of volume overload on examAppeti te improved following hospitaliz ation [id number] MAYLIN PARKS PA-C [facility] on [address] [place] [address] 11/29/2021 15:46:53 12/06/2021 15:21:14 Abscess in epidural space of lumbar spine 357443847 G06.1 DaptoPt has ID f/u with Dr. Scott Xavier on 12/16/21 at 1020, [address]-ID will determine if repeat imaging is necessary prior to completion of Abx-may need Bactrim or Doxy oral tail, to be determined by [facility]Add [facility], CMP, CK weekly while on Dapto-fax results to [facility] ID Bacteremia caused by Methicillin resistant Staphylococcus aureus 0903988132 8906389 B95.62 as above Bacteremia caused by Gram-negative bacteria 9534396552 08 A41.50 From PICC line pt-induced contaminat ionZosyn Viral hepatitis C 428571 07 B19.20 No transamini tis on labsOutpat ient f/u with ID for potential tx Essential hypertension 62863200 I10 monitor BPs and adjust meds prn Opioid dependence 874566 00 F11.20 Continue Suboxone-S cript for Suboxone 12-3 mg #30 films with 5 refills given to nurseGiven pt's documented behavior and confession in the hospital with regard to illicit opiate use, SW has placed patient on a No Harm agreement. The Dilaudid was d/c'd at the hospital and he should not require anything beyond the bup for pain management in addition to management his opiate use d/o-in the rare case that he requires opiate analgesia, meds would need to be crushed with direct observed dosing in order to mitigate risk of diversionP t is interested in Sublocade- [facility] so he will need to wait until after d/c when he can f/u with [facility] t[facility] use disorders counseling 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 71781610 F14.10 Substance use d/o counseling Tobacco de pendence syndrome 97039814 F17.200 counseled 4 minutes on the importance of cessationn ot interested in quitting at this time Insomnia c o-occurrent and due to medical condition 9562880945 9105 G47.01 Trazodone and MelatoninM onitor and f/u prn Alcohol dependence 04851 003 F10.20 Substance use d/o counseling Post-traum atic stress disorder 90760554 F43.10 Was on Prazosin 4 mg po qhs last admit-clar paulo if supposed to still be onConsider psych consult Anxiety 10961537 F41.9 Continue EffexorNO BENZOSCons ider psych consult Anemia 113295571 D64.9 Follow CBC Chronic constipation 236 724283 K59.09 scheduled and prn bowel medsf/u prn Advance care planning 71 5497635 Z71.89 Met with patient, who is his own decision-marisa alvarez, in the solarium. Reviewed the MOLST he completed earlier with the nurse. Reviewed each section of the MOLST and answered questions to his satisfacti on. Reviewed that today's selections are different from previous admit (was previously DNR/DNI and now he is full code.) He was comfortabl e with today's choices. Form completed, signed, and orders entered to reflect the following: Attempt resuscitat ion; no non-invasi ve ventilatio n; ok to transfer to hospital; no dialysis; no artificial nutrition; ok for short-term artificial hydration. Total time spent 18 minutes. [id number] Anusha Herrera MD [facility] on [address] [place] [address] 12/01/2021 14:17:22 12/07/2021 12:04:37 Abscess in epidural space of lumbar spine 212744887 G06.1 Continue daptomycin 650 mg IV qd until 12/21 for 6 week course from 1st neg blood cx.F/U with Dr. Scott Xavier on 12/16/21 at 10:20, [address] probiotic BID.Monito r labs: CBCD, CMP, CK weekly while on Dapto and fax results to [facility] ID Bacteremia caused by Methicillin resistant Staphylococcus aureus [id number] 9636260 B95.62 as above Bacteremia caused by Gram-negative bacteria 7361490293 08 A41.59 Continue Zosyn IV q 8 hrs until 12/05 to complete 14 day course.Mon itor sxs. Viral hepatitis C 306750 07 B19.20 No transamini tis currently. Hep C ab was + inpt, no quant RNA done.Outpa tient f/u with ID/GI for potential tx Essential hypertension [id number] I10 Good control on no meds.Monit or BP and labs. Opioid dependence 700843 00 F11.20 Continue Suboxone 12-3 qdWants to change to sublocade on d/cContinu e counseling and close monitoring given diversion inpt.Avoid additional opioids unless clear evidence of severe pain.Ariadna nue to encourage abstinence . 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 [id number] F14.10 As above. Tobacco de pendence syndrome 58669253 F17.210 Not interested in quitting.C ontinue to encourage cessation. Insomnia c o-occurrent and due to medical condition [id number] 9105 G47.01 Continue trazodone 300 gm qhs and melatonin 3 mg qhs.Monito r sleep patterns Alcohol dependence 28939 003 F10.20 Continue to encourage abstinence . Post-traum atic stress disorder 71065846 F43.12 Continue venlafaxin e 187.5 mg qd.Psych consult Anxiety 07632415 F41.9 As above. Anemia 484589422 D64.89 Currently WNLMonitor Chronic constipation 236 407963 K59.09 Continue scheduled and prn bowel medsf/u prn Low back pain [id number] M54.59 Unclear how much is real and how much factitious . Pt. walking in hallway without difficulty .Will schedule APAP 1000 mg TID and ibuprofen 600 mg q 6 hrs.Contin ue tizanidine 4 mg TID and lidocaine patch.Kelly tor sxs. [id number] MAYLIN PARKS PA-C [facility] on [address] [place] [id number] 3 12/13/2021 11:46:57 12/20/2021 16:06:18 Spinal epidural abscess 47119439 G06.1 Pain controlled CK up but not significan tly and no symptomsFi scot DaptoHas ID f/u 12/16/21 [id number] MAYLIN PARKS PA-C [facility] [address] [place] [phone] 3 12/20/2021 14:42:05 12/23/2021 11:24:36 Spinal epidural abscess [id number] G06.1 Finish Dapto then start doxy as recommende df/u IDPt will clarify if ID or his PCP will be ordering the MRI [id number] MAYLIN PARKS PA-C [facility] on [address] [place] [address] [phone] 3 12/21/2021 09:23:28 12/23/2021 11:43:49 Spinal epidural abscess [id number] G06.1 Completed DaptoStart Doxy tomorrow Chronic constipation 236 548474 K59.09 Moving bowels on current regimen Chronic hepatitis C 1283 57829 B18.2 outpatient f/u with ID Health Concerns Section Related Observation LastModified by Organization Detai ls LastModified Time None Recorded Concern Status LastModified by Organization Details LastModified Time None Recorded Advance Directives Directive Y: Attempt resuscitation; no non-invasive ventilation; ok to transfer to hospital; no dialysis; no artificial nutrition; ok for short-term artificial hydration Payers Insurance Date Sequence Insurance Name Policy Number Policy Juan Covered Member ID Juan Member ID Guarantor Name 12/23/2021 1 [place]: [facility] Adalberto Jacey [id number] Adalberto Mari Notes Date Note Type Note Provider Name and Address Organization Details Recorded Time 11/29/2021 text/html Pt seen today for initial review. 51-y/o M admitted from [facility] where he was hospitalized 11/08-11/29/21 for sepsis secondary to relapsed MRSA bacteremia and spinal epidural abscess with worsening bilateral septic arthritis of L4-L5 facet joints secondary to IV heroin. Had presented to the ED with a 1-week hx progressive severe low back pain radiating down RLE. Had completed a 6-week oral tail doxy on 10/26/21 following previous admit for same in 07/2021 that was tx Vanc x 6 weeks. Dx lumbar SEA on MRI. Tx Vanc/Zosyn. Seen by N/S who did not feel surgical intervention was indicated at the time. Hospitalization complicated by gram-negative margaret bacteremia (Gemella morbillorum) after he injected into his PICC line 11/15-11/17/21. Per ID note, he crushed up Dilaudid pills, mixed them in water from a used water bottle, and pushed them through his PICC line using a syringe on 2-3 occasions. RN identified used syringes on the floor and pt admitted to using Dilaudid covertly. PICC initially placed 11/15/21 and removed 11/23/21 then replaced 11/28/21 with PICC Guard (tamper-evident catheter access cover.) Seen by ID. Given no growth of MRSA in cultures since 11/09 and overall clinical improvement, recommended using 11/09/21 as the start point for 6 week daptomycin treatment with last dose on 12/21/21. The Zosyn was restarted for 14-days to cover the GNR bacteremia from the PICC line contamination (by the patient.) Seen by Addiction Medicine. Suboxone initially held while pt received prn IV Dilaudid. Was given methadone briefly and then bup restarted and titrated. Here for subacute rehab/IV abx with plan to return home. Pt received the following parenterals at [facility]: Vanc 11/08/21-11/14/21; Zosyn 11/08-11/10/21 then 11/21/21-present; Daptomycin 11/14-present PMHx: Sepsis secondary to relapsed MRSA bacteremia and spinal epidural abscess with worsening bilateral septic arthritis of L4-L5 facet joints 10/2021 secondary to IV heroin; Gemella morbillorum bacteremia secondary to pt's contamination of PICC due to injecting crushed Dilaudid; Prior epidural abscess with cauda equina syndrome and MRSA bacteremia 07/2021; Hep C with transaminitis; HTN; Opiate use d/o with hx multiple past ODs requiring naloxone, now on agonist therapy with buprenorphine/naloxon e; Cocaine use d/o; Tobacco use d/o; EtOH use d/o; PTSD; Insomnia; Prior MRSA infection; Anemia; Chronic constipation; Anxiety; Hx L 2nd finger amp; Cannabis use d/o; Hx SHAHNAZ secondary to ATN 07/2021; Hx neck and back injuries from fall from early Healthcare Maintenance: subacute rehab pt PPI use: not on a PPI Meds:APAP prn pain (new)Suboxone 4-1 mg #3 films SL q am (changed to 12-3 mg #1 film SL daily on admit)Daptomycin 650 mg IV daily x 22 days (new)(stop date 12/21/21)Motrin 600 mg po tid prn pain x 7 days (new)Lidocaine 5% patch daily to back (new)(changed to 4% on admit)Melatonin 3 mg po qhs prn insomnia (new)MiraLax 17 g po bid (new)MOM prn (new)(changed to house bowel protocol on admit)MVI daily (new)Nicoderm 14 mg (new)(d/c'd on admit since pt opted to smoke)Senna 2 po daily prn constipation (new)Zosyn 3.375 g IV q 8 h x 6 days (new)Zanaflex 4 mg po tid (new)Trazodone 300 mg po qhs prn insomnia (changed to scheduled on admit since that's how he takes it at home)Effexor XR 187.5 mg po q am Diet: regular, thin liquids Mobility: ambulatoryContinence: continent of bowel and bladderFeeding: independent ROS: Feels well. Upset that his roommate only speaks Sammarinese and is focused on when the next smoke break is going to take place. MAYLIN PARKS PA-C [address], [address], [place], [place], [address], [facility] [employer] 11/29/2021 21:05:55 12/01/2021 text/html This is a 51 yo man who is known to us from stay here 08/15-09/15/2021 for IV abxs for spinal epidural abscess. His here now for rehab and IV abxs after recurrent epidural abscess with MRSA bacteremia. He presented to the [facility] ED on 2/15 with worsening back pain. He said pain had completely resolved during completion of po abxs. He had his final f/u with ID on 10/19 and was felt to be doing well, ESR was 18 and CRP-1.0. He completed doxy on 10/26. Then pain gradually got worse. In ED his temp was 100.4, BP-128/97. WBC-9.8, ESR-74, CRP-21.4. MRI showed (comparing with 07/2021) Worsening septic arthritis involving the bilateral L4-L5 facet joints with extension of the bilateral L4 and L5 pedicles and increased abnormal signal and enhancement of the posterior aspect of the L4 vertebral body most consistent with worsening osteomyelitis. Progressed large right epidural and subdural collection causing mass effect upon the thecal sac with significant narrowing of the thecal sac at L4-L5 and the flexion of the nerve roots at L5-S1. Worsening soft tissue enhancement surrounding the L4-L5 and L3-L4 facet joints indicating pyogenic myositis. Foci of nonenhancement within the right musculature at L4-5 and L3-L4 may represent tiny intramuscular abscesses or phlegmon. Clumping of the nerve roots from the level of L1 extending inferiorly consistent with arachnoiditis or meningitis. He was started on vanco and Zosyn, IV fluids and dilaudid for pain. Blood cxs grew MRSA. Echo showed no vegetations. He was seen by addiction med and reported he had been on suboxone, but would also consider transitioning to methadone. He intiially denied any recent IV drug use, but then said he had slipped up a few times over the past few months. He has a hx of 11 ODs in the past. He was started on methadone TID to also help manage pain. His blood cx grew MRSA and abx changed to daptomycin, due to previous failure of 6 wks of vanco. On 11/20 he was found to have drug paraphernalia and tox screen was + for opioids and THC. Pt apparently took dilaudid tabs and crushed them, mixed them with water from water bottle on night table and injected into PICC line. His blood cxs were c/w this growing cupriavidus pauculus and gemella morbillorum, the former of which grows in water and the later is oral vinay. PICC line was removed then replaced on 11/28 with a PICC Guard (tamper-evident catheter access cover.) Zosyn was restarted for 14 days to cover gram negatives. Pt. preferred suboxone to methadone and addiction medicine transitioned him for d/c. Transferred here on 11/29.Today he says his pain is so bad, knows he won't be able to get out of bed in the morning. Can't really remember details about hospitalization or time here so far. 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 Says he had no pain until off doxycycline on 10/26. Then pain started coming back. When I ask him about the incident in hospital he says Yeah I thought about doing that , he does not recall that he actually did inject dilaudid in PICC line. When I remind him, he doesn't seem surprised, but just says oh .His PMH includes recurrent MRSA bacteremia with epidural abscess/osteomyelitis and bilateral septic arthritis of L4-5 facet joints, HTN, IVDU-heroin and cocaine-s/p multiple ODs, hx of Hep C, EtOH abuse, s/p cauda equina syndrome 07/2021, PTSD, insomnia, anemia, constipation, anxiety/depression, hx of neck and back injuries from fall from roof in early , cigarette smoker, and hx of urinary retention. Anusha Herrera MD [address], [address], [place], [address], [facility] 12/07/2021 02:09:12 12/13/2021 text/html ROS as noted in the HPI Pt seen today for acute rounding visit for f/u SEA. Pt with SEA. Recently finished Zosyn but remains on Daptomycin 650 mg IV daily until 12/21/21. Pt has no complaints. Wants to know when he can go home. End date of IV Dapto reviewed with patient. PMHx reviewed Meds reviewed MAYLIN PARKS PA-C [address], [address], [place], [phone], [facility] 12/18/2021 21:00:55 12/20/2021 text/html ROS as noted in the HPI Pt seen for acute rounding visit today for f/u SEA. 51-y/o M here for spinal epidural abscess. On Dapto 650 mg IV daily though 12/21/21. Had ID f/u with Dr. Scott Xavier on 12/16/21. Returned with recommendation to finish Dapto as planned and then start doxycycline 100 mg po bid for at least 6 weeks. Had CBC, CMP, ESR, CRP drawn at ID as well as blood cx x 2. Needs repeat MRI lumbar spine to look for resolution of soft tissue infection and f/u ID 4-5 weeks. Pt feels well. No back pain. Has been experiencing some anxiety and is worried about tolerating the MRI. Recommended he f/u with PCP for a pre-med. PMHx reviewed Meds reviewed. MAYLIN PARKS PA-C [address] [place] [address], [address], [place], [address], [facility] [employer] 12/21/2021 09:23:16 12/21/2021 text/html Pt seen today for discharge. Admit Date: 11/29/21 Discharge/Service Date: 12/21/21 Principle Discharge Diagnosis: sepsis secondary to relapsed MRSA bacteremia and lumbar spinal epidural abscess with worsening bilateral septic arthritis of L4-L5 facet joints secondary to IV heroin; Gemella morbillorum bacteremia secondary to pt's contamination of PICC due to injecting crushed Dilaudid Secondary Discharge Diagnoses: Prior epidural abscess with cauda equina syndrome and MRSA bacteremia 07/2021; Hep C with transaminitis; HTN; Opiate use d/o with hx multiple past ODs requiring naloxone, now on agonist therapy with buprenorphine/naloxon e; Cocaine use d/o; Tobacco use d/o; EtOH use d/o; PTSD; Insomnia; Prior MRSA infection; Anemia; Chronic constipation; Anxiety; Hx L 2nd finger amp; Cannabis use d/o; Hx SHAHNAZ secondary to ATN 07/2021; Hx neck and back injuries from fall from Hospital Patient Received From: [facility] Attending MD: Dr. Keenan Elizondo/Maylin Parks PA-C Medications Started at SNF: Doxycyline (per ID); Probiotic Medications Discontinued at SNF & Why: Motrin (Hep C); Dapto (completed tx); Nicoderm (pt opted to smoke); Zosyn (completed tx); Lidocaine patch (pt did not wish to continue it); MVI (pt request) Dose Changes: APAP changed from prn to scheduled; Lidocaine patch changed from 5% to 4% Med changes prior to admit at [facility]:APAP addedDapto addedMotrin addedMelatonin addedMiraLax addedprn MOM addedMVI addedNicoderm addedLidocaine patch addedZosyn addedZanaflex added Discharge Medication List:Melatonin 3 mg po qhsSuboxone 12-3 mg 1 SL q amTrazodone 300 mg po qhsEffexor XR 187.5 mg po q amDoxycycline 100 mg po bid x 6 weeksMiraLax 17 g po bidProbiotic bid until 12/29/21Zanaflex 4 mg po tid PCP Head s Up: none Post-Acute Summary: Admitted for subacute rehab/IV abx. Did not require any PT/OT/[employer]. Labs monitored and stable. Pain controlled. Had f/u with ID who recommended oral tail with Doxy and MRI lumbar spine prior to next ID f/u. Pt was scheduled to d/c tomorrow; however, he requested to leave today as he completed his final dose of Dapto this am. He will be discharging home. PICC pulled prior to d/c - tip intact, length 39 cm (same as insertion paperwork, and bleeding controlled. Consultants Involved: ID Tests/Labs Needing to be Ordered or Followed by PCP: per PCP discretion Services Ordered at Discharge: pt will resume Suboxone with [facility]; does not require VNA services Diet: regular, thin liquids Activity: ambulatory as tolerated MAYLIN PARKS PA-C [address], [address], [place], [address], [facility] [employer] 12/21/2021 11:26:57
== END 2025-08-11 15:42 | disposition home or self-care (01) ==
LOC: HO.HOS 13:41
PROVIDERS: PCP Internal Medicine
DX: M89.8X4 Other specified disorders of bone, hand (principal)
CPT/HCPCS: 99214

== ENCOUNTER 2025-08-11 13:40 | Outpatient (REF) | payer MEDICAID, SELFPAY ==
--- NOTE | ~2025-08-11 | XR_ITS ---
EXAMINATION: XR HAND, RIGHT CLINICAL INFORMATION: M79.641 - Pain in right hand , follow-up osteomyelitis involving tuft of the great digit. COMPARISON: 06/23/2025 TECHNIQUE: PA, lateral, and oblique views of the right hand. FINDINGS: Again seen is a defect involving the tuft of the thumb. Demonstrates a beaded shaped contour. Margins are distinct increasing bone mineral density. However, there is a somewhat tubular shaped lucency at the central distal remaining tuft. 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 There are also stable mild degenerative changes in the hand. XR/XR hand RT min 3V IMPRESSION: Again identified are destructive changes in the tuft of the distal phalanx of the right thumb with increased bone mineral density consistent with improvement. Electronically signed by: Jadiel Ramirez MD 08/11/2025 03:20 PM NURIS
== END 2025-08-11 13:41 | disposition home or self-care (01) ==
LOC: HO.HOSX 13:40
PROVIDERS: PCP Internal Medicine
DX: M89.8X9 Other specified disorders of bone, unspecified site (principal)
CPT/HCPCS: 73130; 99212

== ENCOUNTER → 2025-08-11 15:01 | Outpatient (BNV) | payer MEDICAID, SELFPAY | PROVIDERS: PCP Internal Medicine; Visit Provider Radiology Diagnostic Radiology | DX: M79.641 Pain in right hand (principal) | CPT/HCPCS: 73130 ==

== ENCOUNTER 2025-09-14 07:57 | Day surgery (SDC) | payer OTHER, SELFPAY ==
--- OUTSIDE RECORDS SUMMARY | 2025-09-03 21:25 | XMS_ITS | Data Portability ---
Author Organization [facility], Main Office Address [address], [address] [place] [address] Care Team Providers Care Leveler Helper Name Role Phone [facility] [employer] [facility] [employer] OTHER ALEJANDRA FOSS Primary Care Provider SCOTT XAVIER OTHER RIGHT CHOICE OTHER Assessment [...] By Organization Details Last Modified Time 11/29/2021 [id number] Dispo -- home when IV abx complete, ~3 weeks Total pgo-yokt-yo-face time spent reviewing hospital records on 11/28/21 was 40 minutes [email or web address] Not available 11/29/2021 21:01:13 12/20/2021 [id number] Total time spent 15 minutes, >50% in mdmo-qm-roqe counseling and coordination of care [email or web address] Not available 12/21/2021 09:22:15 12/21/2021 [id number] F/U Appointments : Pt will schedule next appointment at [facility] Needs ID f/u 4-5 weeks Total time spent on discharge: 35 minutes Script given to pt for doxycycline Pt received Suboxone 12-3 mg SL this am and will be discharging with 18 remaining films [email or web address] Not available 12/21/2021 10:14:51 Reason for Referral None Reported. Problems Name Problem SNOMED Code Status Onset Date Resolution Date Notes Provider Name and Address Organization Details Recorded Time Spinal epidural abscess 55773950 Active 2020 MAYLIN PARKS, PA-C [address], [address], [place], [address], [facility] [employer] [facility] 20:06:17 Bacteremi a 4717447 Active 2020 MAYLIN PARKS, PA-C [address], [address], [place], [address], [facility] [employer] [facility] 20:06:27 Acute retention of urine 434084236 Active 2020 MAYLIN PARKS, PA-C [address], [address], [place], [address], [facility] [employer] [facility] 20:06:37 Acute tubular necrosis 59569611 Active 2020 MAYLIN PARKS, PA-C [address], [address], [place], [address], [facility] [employer] [facility] 20:07:03 Opioid dependenc e 13531395 Active 2020 MAYLIN PARKS, PA-C [address], [address], [place], [address], [facility] 20:07:15 Cauda equina syndrome 760726040 Active 2020 MAYLIN PARKS, PA-C [address], [address], [place], [address], [facility] [employer] [facility] 20:07:24 Essential hypertens ion 95755149 Active 2020 MAYLIN PARKS, PA-C [address], [address], [place], [address], [facility] [employer] [facility] 20:07:31 Methicill in resistant Staphyloc occus aureus infection 133458751 Active 2020 bacteremi a and SEA MAYLIN PARKS, PA-C [address], [address], [place], [address], [facility] [employer] [facility] 20:07:50 Tobacco dependenc e syndrome 30617151 Active 2020 MAYLIN PARKS, PA-C [address], [address], [place], [address], [facility] 20:08:01 Chronic hepatitis C 668467283 Active 2020 MAYLIN PARKS PA-C [address], [place], [address], [facility] [employer] 20:08:13 Chronic constipat ion 245788461 Active 2020 MAYLIN PARKS PA-C [address], [place], [address], [facility] [employer] 20:08:21 Post-trau matic stress disorder 85614087 Active 2020 MAYLIN PARKS PA-C [address], [place], [address], [facility] 20:08:29 Anemia 654489389 Active 2020 MAYLIN PARKS PA-C [address], [place], [address], [facility] 1 20:08:43 Abscess in epidural space of lumbar spine 951259877 Active 2021 Anusha Herrera MD [address], [place], [address], [facility] 2 01:55:26 Bacteremi a caused by Gram-nega tive bacteria 299508677569 Active 2021 Anusha Herrera MD [address], [place], [address], [facility] 2 01:57:29 Bacteremi a caused by Methicill in resistant Staphyloc occus aureus 003237799804 69155 Active 2021 Anusha Herrera MD [address], [place], [address], [facility] 2 01:57:34 Low back pain 720743659 Active 2021 Anusha Herrera MD [address], [place], [address], [facility] 2 01:57:47 Viral hepatitis C 45222263 Active 2021 Anusha Herrera MD [address] [facility] [address], [address], [place], [address], [facility] 2 01:58:36 Insomnia co-occurr ent and due to medical condition 776730533524 05 Active 2021 Anusha Herrera MD [address] [facility], [address], [place], [address], [facility] 2 02:02:40 Alcohol dependenc e 37752245 Active 2021 Aunsha Herrera MD [address] [facility], [address], [place], [address], [facility] 2 02:04:14 Problem Notes None recorded. Medical Equipment None Reported. Allergies No known drug allergies Medications Not known to be on any medication Vitals Date Recorded Body height Body temperature Respiratory rate Heart rate Oxygen saturation Body mass index (BMI) Body weight Systolic And Diastolic Provider Name and Address Organization Details Last Updated DateTime 2 167.64 cm 97.2 [degF] 16 /min 94 /min 96 % 29.1 kg/m2 57535.0 6 g 105/79 mm[Hg] MAYLIN PARKS PA-C [address] [facility], [address], [place], [address], [facility] 2 19:45:09 Date Recorded Body height Body mass index (BMI) Body weight Heart rate Respiratory rate Body temperature Oxygen saturation Systolic And Diastolic Provider Name and Address Organization Details Last Updated DateTime 2 167.64 cm 29.1 kg/m2 31502.0 6 g 96 /min 21 /min 97.3 [degF] 99 % 105/79 mm[Hg] Anusha Herrera MD [address] [facility], [address], [place], [address], [facility] 2 17:44:32 Date Recorded Body height Body temperature Respiratory rate Oxygen saturation Systolic And Diastolic Provider Name and Address Organization Details Last Updated DateTime 2 167.64 cm 97.7 [degF] 16 /min 96 % 126/82 mm[Hg] MAYLIN PARKS PA-C [address] [facility], [address], [place], [address], [facility] 2 20:45:12 Date Recorded Body height Body temperature Heart rate Respiratory rate Oxygen saturation Systolic And Diastolic Provider Name and Address Organization Details Last Updated DateTime 2 167.64 cm 97.3 [degF] 69 /min 20 /min 96 % 109/70 mm[Hg] MAYLIN PARKS PA-C [address] [facility], [address], [place], [address], [facility] 2 09:16:15 Date Recorded Body height Body temperature Heart rate Respiratory rate Body mass index (BMI) Body weight Oxygen saturation Systolic And Diastolic Provider Name and Address Organization Details Last Updated DateTime 2 167.64 cm 98.2 [degF] 69 /min 20 /min 29.6 kg/m2 49708.8 4 g 98 % 109/70 mm[Hg] MAYLIN PARKS PA-C [address] [facility], [address], [place], [address], [facility] 2 09:24:24 Social History Question Answer Notes LastModified by Organization Details LastModified Time Tobacco Smoking Status Current Every Day Smoker MAYLIN PARKS PA-C [address] [facility], [address], [place], [address], [facility] 08/16/2021 16:20:20 Do You Have An Advance Directive? Yes Attempt Resuscitatio n; No Non-invasive Ventilation; Ok To Transfer To Hospital; No Dialysis; No Artificial Nutrition; Ok For Short-term Artificial Hydration [email or web address] Information not available 11/29/2021 How Many Years Have You Consumed Alcohol? 30 [email or web address] Information not available 08/16/2021 What Is Your Code Status? DNR/DNI [email or web address] Information not available 08/16/2021 Which Illicit Or Recreational Drugs Have You Used? Heroin, Cocaine, Cannabis, Dilaudid, OxyContin On Suboxone At [facility] [email or web address] Information not available 11/29/2021 How Many Years Have You Used Illicit Or Recreational Drugs? 25 [email or web address] Information not available 08/16/2021 Where Do You Live? [facility] [email or web address] Information not available 08/16/2021 Legal Guardian? No Information not available 08/16/2021 Do You Have A Medical Power Of Anesthesia Resident? Yes No Form On Chart; [employer] [facility] [employer] References Elva Glover [phone] [email or web address] Information not available 08/16/2021 What Was The Date Of Your Most Recent Tobacco Screening? 11/29/2021 [email or web address] Information not available 11/29/2021 Do You Have An Out Of Hospital DNR? Yes Information not available 08/16/2021 Have You Ever Been Counseled For Unhealthy Alcohol Use? Yes [email or web address] Information not available 08/16/2021 How Much Tobacco Do You Smoke? 0.5 PPD [email or web address] Information not available 08/16/2021 Has Tobacco Cessation Counseling Been Provided? Yes [email or web address] Information not available 08/16/2021 On What Date Was Tobacco Cessation Counseling Provided? 11/29/2021 [email or web address] Information not available 11/29/2021 How Many Years Have You Smoked Tobacco? 40 [email or web address] Information not available 08/16/2021 Have You Used IV Drugs? Yes [email or web address] Information not available 08/16/2021 Sex: Unknown Functional Status Question Answer Note LastModified by Organizat ion Details LastModified Time How many times per week do you consume alcohol? 3-4 times per week [email or web address] Information not available 08/16/2021 Do you use any illicit or recreational drugs? Yes Information not available 08/16/2021 Do you or have you ever used any other forms of tobacco or nicotine? No [email or web address] Information not available 08/16/2021 What is your level of alcohol consumption? Heavy binge [email or web address] Information not available 08/16/2021 Mental Status None recorded. Family History Relationship Description Onset Age of this Age Resolved Age Notes LastModified by Organization Details LastModified Time Mother Opioid dependence opiate pills [email or web address] Not available 08/16/2021 16:56:14 Medical History No medical history recorded. Immunizations Vaccine Type Date Status Note Provider Nam e and Address Organization Details Recorded Time Influenza, split virus, quadrivalent, preservative completed MAYLIN PARKS PA-C [address], [address], [place], [address], [facility] 08/16/2021 16:45:45 COVID-19, mRNA, LNP-S, PF, 100 mcg/0.5mL dose or 50 mcg/0.25mL dose 1 completed MAYLIN PARKS PA-C [address], [address], [place], [address], [facility] 08/16/2021 16:46:00 COVID-19, mRNA, LNP-S, PF, 100 mcg/0.5mL dose or 50 mcg/0.25mL dose 1 completed MAYLIN PARKS PA-C [address], [address], [place], [address], [facility] 08/16/2021 16:46:04 Tdap 1 completed MAYLIN PARKS PA-C [address], [address], [place], [address], [facility] 08/16/2021 16:46:31 Past Encounters Encounter ID Performer Location Encounter Start Date Encounter Closed Date Diagnosis/Indication Diagnosis SNOMED-CT Code Diagnosis ICD10 Code Diagnosis IMO Codes Diagnosis Note [id number] MAYLIN PARKS PA-C [facility] on [address] [place] [address] 08/16/2021 16:02:10 08/23/2021 13:57:26 Spinal epidural abscess 23377631 G06.1 Vanc 1250 mg IV q 24 h until 09/14/21-T ROUGH GOAL 15-20 PER IDID f/u with Dr. Tish Johnson 09/13/21 @ [address], CMP, Vanc trough weekly and faxed to [facility] ID -ordered for 08/19, 08/22, 08/29, 09/05, and 09/12Needs MRI lumbar spine to be done at [facility] prior to 09/13/21 ID appointmen t to assess status of epidural abscess Methicilli n resistant Staphylococcus aureus infection 106557856 A49.02 as above Bacteremia 6324463 R78.8 1 as above Acute rete ntion of urine 985826915 R33.8 resolved Acute tubu lar necrosis 24482952 N17.0 follow renal function Anemia 987621720 D64.9 follow CBC Cauda equina syndrome 19 2315791 G83.4 improvedfo llow clinically Chronic constipation 236 755825 K59.09 scheduled and prn bowel medsf/u prn Chronic hepatitis C 1283 39986 B18.2 outpatient f/u with ID Essential hypertension 67740445 I10 monitor BPs and adjust meds prn Opioid dependence 218503 00 F11.20 does not wish to resume MATWill need to taper Dilaudid Post-traum atic stress disorder 35955703 F43.10 Prazosin 4 mg po qhs for nightmares Tobacco de pendence syndrome 61734265 F17.200 counseled 4 minutes on the importance of cessationn ot interested in quitting at this time [id number] MAYLIN PARKS PA-C [facility] on [address] [place] [address] 08/19/2021 14:44:21 08/30/2021 15:03:15 Spinal epidural abscess 29453265 G06.1 subtherape utic Vanc-incre ase and split-dose to 750 mg IV q 12 h-repeat trough Sunday as previously ordered-Go al 15-20-Vanc tentativel y scheduled to complete 09/14/21-T ROUGH GOAL 15-20 PER IDID f/u with Dr. Tish Johnson 09/13/21 @ [address], CMP, Vanc trough weekly and faxed to [facility] ID [id number] 99-ordered for 08/22, 08/29, 09/05, and 09/12Needs MRI lumbar spine to be done at [facility] prior to 09/13/21 ID appointmen t to assess status of epidural abscess Acute rete ntion of urine 953460724 R33.8 resolved [id number] Keenan Elizondo MD [facility] on [address] [place] [address] 08/22/2021 13:21:04 08/25/2021 14:22:22 Cauda equina syndrome 774712299 G83.4 see abovemonit or for change in presentati on Spinal epi dural abscess 15663891 G06.1 see HPIspinal epidural abscess with cord [...] as able Acute rete ntion of urine 384104721 R33.8 this was an issue in hospitalmo nitor for sx Chronic constipation 236 181625 K59.09 bowel protocolmo nitor need to titrate meds Chronic hepatitis C 1283 47802 B18.2 carrying dxfollowed by IDmonitor LFT's as neededupda te ID with concerns Essential hypertension 03378673 I10 prazosin 4 mg qd (question used for night terrors)mo nitor bp and need to titrate Opioid dependence 284302 00 F11.20 hx of maintained on dilaudidmo nitor utilizatio nwean as able Post-traum atic stress disorder 13061109 F43.12 continue current medspsych eval prn Tobacco de pendence syndrome 62012772 F17.210 encourage quitting1 ppd at baseline [id number] MAYLIN PARKS PA-C [facility] on [address] [place] [address] 08/30/2021 11:23:47 09/02/2021 10:54:26 Spinal epidural abscess 01949221 G06.1 subtherape utic Vanc-incre ase dose from 750 mg IV q 12 h to 1 g IV q 12 h-repeat trough Sunday as previously ordered-Go al 15-20-Vanc tentativel y scheduled to complete 09/14/21-T ROUGH GOAL 15-20 PER IDID f/u with Dr. Tish Johnson 09/13/21 @ [address], CMP, Vanc trough weekly and faxed to [facility] ID -ordered for 08/22, 08/29, 09/05, and 09/12Needs MRI lumbar spine to be done at [facility] prior to 12/21/21 ID appointmen t to assess status of epidural abscess Opioid dependence 205311 00 F11.20 Has decided to resume agonist therapy with buprenorph ine/naloxo ne-has been actively communicat ing with [facility] where he was previously a patientLen [...] Sun, 09/14 with a tentative d/c on 09/15.-doug s gives 16 days to taper off Dilaudid and start bupWill continue to work with patient on taper [id number] ARPIT STEELE [facility] on [address] [place] [address] 09/02/2021 14:15:25 09/06/2021 11:16:36 Post-traumatic stress disorder 15817284 F43.12 pt reports he was taking trazodone 200mg [id number] qhs prn was recently d/c'd d/t non use - new reports of pt sleep walking and engaging in sexual behavior with another resident - per notes, pt does not recall events and/or denies, staff have observed thisadding back trazodone 200mg qhs and monitor for effect? referring to psychother apypsych prnmonitor mood and behavior [id number] ARPIT STEELE [facility] on [address] [place] [address] 09/05/2021 14:16:06 09/07/2021 13:06:13 Post-traumatic stress disorder 03108131 F43.12 300mg qhs prn was recently d/c'd [...] - pleasant today Spinal epi dural abscess 32653976 G06.1 subtherape utic Vanc-incre ase dose from 750 mg IV q 12 h to 1 g IV q 12 h - vanco trough today 12 - increasing vanco to 1250mg A42-rxdnr trough friday 09/07-Goal 15-20-Vanc tentativel y scheduled to complete 09/14/21-T ROUGH GOAL 15-20 PER IDID f/u with Dr. Tish Johnson 09/13/21 @ [address], CMP, Vanc trough weekly and faxed to [facility] ID -ordered for 08/22, 08/29, 09/05, and 09/12Needs MRI lumbar spine to be done at [facility] prior to 09/13/21 ID appointmen t to assess status of epidural abscessmon itor for pain controlmon itor labs prn [id number] MAYLIN PARKS PA-C [facility] on [address] [place] [address] 09/13/2021 16:46:09 09/15/2021 14:17:01 Methicillin resistant Staphylococcus aureus infection 016271212 A49.02 Finish Vanc tomorrow night then d/c PICC and start Doxycyclin e 100 mg po bid x 6 weeksID f/u 4-6 weeks Opioid dependence 759675 00 F11.20 Pt with prior Rx Suboxone but has not had since early July 2021.Will d/c Dilaudid effective 2359 on 09/14/21 art Suboxone 8-2 mg SL q am-will give #8 no refills to carry him to his appointmen t-monitor for opiate w/d [id number] MAYLIN PARKS PA-C [facility] on [address] [place] [address] 09/14/2021 13:15:20 09/19/2021 13:19:06 Methicillin resistant Staphylococcus aureus infection 070489070 A49.02 Finish Vanc tonight then d/c PICC and start Doxycyclin e 100 mg po bid x 6 weeksID f/u 4-6 weeksAs pt does not have a PCP at this time, script given for CBCD, CMP, ESR, CRP weekly x [address] weeks [address] results [address] Johnson, [facility] ID fax [phone] Cauda equina syndrome 19 7003023 G83.4 Resolvedfo llow clinically Anemia 479036945 D64.9 Improved Weight gain 4825976 R63. 5 No evidence of volume overload on examAppeti te improved following hospitaliz ation [id number] MAYLIN PARKS PA-C [facility] on [address] [place] [address] 11/29/2021 15:46:53 12/06/2021 15:21:14 Abscess in epidural space of lumbar spine 976926554 G06.1 DaptoPt has ID f/u with Dr. Scott Xavier on 12/16/21 at 1020, [address]ID will determine if repeat imaging is necessary prior to completion of Abx-may need Bactrim or Doxy oral tail, to be determined by [facility] BCD, CMP, CK weekly while on Dapto-fax results to [facility] ID [phone] Bacteremia caused by Methicillin resistant Staphylococcus aureus 4424277310 0211779 B95.62 as above Bacteremia caused by Gram-negative bacteria 4843636757 08 A41.50 From PICC line pt-induced contaminat ionZosyn Viral hepatitis C 098176 07 B19.20 No transamini tis on labsOutpat ient f/u with ID for potential tx Essential hypertension 71754578 I10 monitor BPs and adjust meds prn Opioid dependence 652187 00 F11.20 Continue Suboxone-S cript for Suboxone [...] is interested in Sublocade- explained that the [place] pharmacy is not registered with [facility] so he will need to wait until after d/c when he can f[facility] with [facility] 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 35684733 F14.10 Substance use d/o counseling Tobacco de pendence syndrome 07300765 F17.200 counseled 4 minutes on the importance of cessationn ot interested in quitting at this time Insomnia c o-occurrent and due to medical condition 4216153990 9105 G47.01 Trazodone and MelatoninM onitor and f/u prn Alcohol dependence 84124 003 F10.20 Substance use d/o counseling Post-traum atic stress disorder 21170221 F43.10 Was on Prazosin 4 mg po qhs last admit-clar paulo if supposed to still be onConsider psych consult Anxiety 77525954 F41.9 Continue EffexorNO BENZOSCons ider psych consult Anemia 228862355 D64.9 Follow CBC Chronic constipation 236 235407 K59.09 scheduled and prn bowel medsf/u prn Advance care planning 71 8551259 Z71.89 Met with patient, who is his [...] artificial hydration. Total time spent 18 minutes. [id number] Anusha Herrera MD [facility] on [address] [place] [address] 12/01/2021 14:17:22 12/07/2021 12:04:37 Abscess in epidural space of lumbar spine 440382904 G06.1 Continue daptomycin 650 mg IV qd until 12/21 for 6 week course from 1st neg blood cx.F/U with Dr. Scott Xavier on 12/16/21 at 10:20, [address] probiotic BID.Monito r labs: CBCD, CMP, CK weekly while on Dapto and fax results to [facility] ID Bacteremia caused by Methicillin resistant Staphylococcus aureus 7746219147 8857257 B95.62 as above Bacteremia caused by Gram-negative bacteria 8756432763 08 A41.59 Continue Zosyn IV q 8 hrs until 12/05 to complete 14 day course.Mon itor sxs. Viral hepatitis C 241508 07 B19.20 No transamini tis currently. Hep C ab was + inpt, no quant RNA done.Outpa tient f/u with ID/GI for potential tx Essential hypertension 52168837 I10 Good control on no meds.Monit or BP and labs. Opioid dependence 877727 00 F11.20 Continue Suboxone 12-3 qdWants to change to sublocade on d/cContinu e counseling and close monitoring given diversion inpt.Avoid additional opioids unless clear evidence of severe pain.Ariadna nue to encourage abstinence . 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 00472986 F14.10 As above. Tobacco de pendence syndrome 26737106 F17.210 Not interested in quitting.C ontinue to encourage cessation. Insomnia c o-occurrent and due to medical condition 5580971670 9105 G47.01 Continue trazodone 300 gm qhs and melatonin 3 mg qhs.Monito r sleep patterns Alcohol dependence 28043 003 F10.20 Continue to encourage abstinence . Post-traum atic stress disorder 50993607 F43.12 Continue venlafaxin e 187.5 mg qd.Psych consult Anxiety 83710862 F41.9 As above. Anemia 667300810 D64.89 Currently WNLMonitor Chronic constipation 236 736805 K59.09 Continue scheduled and prn bowel medsf/u prn Low back pain 023304568 M54.59 Unclear how much is real and how much factitious . Pt. walking in hallway without difficulty .Will schedule APAP 1000 mg TID and ibuprofen 600 mg q 6 hrs.Contin ue tizanidine 4 mg TID and lidocaine patch.Kelly tor sxs. [id number] MAYLIN PARKS PA-C [facility] on [address] [place] [address] 12/13/2021 11:46:57 12/20/2021 16:06:18 Spinal epidural abscess 04417433 G06.1 Pain controlled CK up but not significan tly and no symptomsFi scot DaptoHas ID f/u 12/16/21 [id number] [facility] PARKS [facility] [address] [place] [address] 12/20/2021 14:42:05 12/23/2021 11:24:36 Spinal epidural abscess 01594018 G06.1 Finish Dapto then start doxy as recommende df/u IDPt will clarify if ID or his PCP will be ordering the MRI [id number] MAYLIN PARKS PA[facility]C [facility] [address] [place] [address] 12/21/2021 09:23:28 12/23/2021 11:43:49 Spinal epidural abscess 95931924 G06.1 Completed DaptoStart Doxy tomorrow Chronic constipation 236 366098 K59.09 Moving bowels on current regimen Chronic hepatitis C 1283 25215 B18.2 outpatient f/u with ID Health Concerns [...] Juan Member ID Guarantor Name 12/23/2021 1 [place] [facility] Adalbertorebecca Mari [id number] Adalberto Mari Notes Date Note Type Note Provider Name and Address Organization Details Recorded Time 11/29/2021 text/html Pt seen today for initial review. 51-y/o M admitted from where he was hospitalized 11/08-11/29/21 for sepsis [...] home. Pt received the following parenterals at [facility]: Vanc 11/08/21-11/14/21; Zosyn 11/08-11/10/21 then 11/21/21-present; Daptomycin [...] well. Upset that his roommate only speaks [place] and is focused on when the next smoke break is going to take place. MAYLIN PARKS PA-C [address] [place] [address], [address], [place], [address], [facility] 11/29/2021 21:05:55 12/01/2021 text/html This is a 51 yo man who is known to us from stay here 08/15-09/15/2021 for IV abxs for spinal epidural abscess. His here now for rehab and IV abxs after recurrent epidural abscess with MRSA bacteremia. He presented to the [facility] ED on 11/08 with worsening back pain. He said pain [...] of urinary retention. Anusha Herrera MD [address] [facility], [address], [place], [address], [facility] 12/07/2021 02:09:12 12/13/2021 text/html ROS as [...] reviewed Meds reviewed MAYLIN PARKS PA-C [address] [facility], [address], [place], [address], [facility] 12/18/2021 21:00:55 12/20/2021 text/html ROS as [...] PMHx reviewed Meds reviewed. MAYLIN PARKS PA-C [address] [place] [address], [address], [place], [address], [facility] 12/21/2021 09:23:16 12/21/2021 text/html Pt seen today [...] neck and back injuries from [facility] Patient Received From: Attending MD: Dr. Keenan Elizondo/Maylin Parks PA-C [...] 4% Med changes prior to admit at [facility]:APAP addedDapto addedMotrin addedMelatonin addedMiraLax addedprn MOM addedMVI [...] subacute rehab/IV abx. 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 Labs monitored and stable. Pain controlled. Had [...] ambulatory as tolerated MAYLIN PARKS PA-C [address] [facility], [address], [place], [address], [facility] 12/21/2021 11:26:57
--- OUTSIDE RECORDS SUMMARY | 2025-09-03 21:25 | XMS_ITS | Clinical Summary ---
Author Organization [employer] Address [address] [facility] [address] [place] [address] Care Team Providers Care Admissions Gate Attendant Name Role Phone Silvia Fitzgerald MD Primary [...] 08/25/2022 Seborrheic dermatitis 08/25/2022 Chronic hepatitis C ([facility]/HCC) 12/31/2018 Depressive disorder 12/31/2018 Anxiety 03/21/2018 [...] Department Care Team Description 08/11/2025 Orders Only [facility] External Provider, [facility] 06/09/2025 Telephone [facility] [address] [place] [address] Kelsea Pablo, RN appt. reschedule 06/09/2025 Telephone [facility] [address] [place] [address] Vida Cash, ZOOLOGY TECHNICAL OFFICER Follow-up 06/08/2025 Orders Only GENERIC EXTERNAL DATA DEPARTMENT Provider, Generic External Data from Last 3 Months Immunizations Immunization Administration [...] SERUM Routine 06/08/2025 1:1 8 PM EDT [facility] HISTORICAL HIV AB/AG Routine 03/12/2020 4:40 PM EDT from Last 3 Months or Most Recently Relevant to Health Maintenance Results * XR Hand 3+ Views Right (08/11/2025 3:01 PM EST) Only the most recent of2 resultswithin the time period is included. Anatomical Region Laterality Modality Upper Extremities, Hand Right Radiogra phic Imaging 08/11/2025 3:01 PM EST Narrative 08/11/2025 3:22 PM EST [facility] [address] [place] [address] Drive [address] [place] [address] XRay Report Signed Patient: Adalberto Mari MR#: [id number] : 1970 Acct:[id number] Age/Sex: 54 / M ADM Date: 08/11/25 Loc: [facility] Attending Dr: Minor DUFFY Ordering Physician: Marlene Harrington MD Date of Service: 08/11/25 Procedure(s): XR hand RT min 3V Accession Number(s): [id number] cc: Silvia Fitzgerald MD; Marlene Harrington MD [...] Jadiel Ramirez MD 08/11/2025 03:20 PM EST Dictated By: Jadiel Ramirez MD Signed By: <Electronically signed by Jadiel Ramirez MD in OV> 08/11/25 1520 DD/ 1501 TD/TT: 08/11/25 1506 Top Collar Maker: Procedure Note Anandotaprilter, Image - 08/11/2025 [facility] [address] [place] [address] [address] [place] [address] XRay Report Signed Patient: Adalberto Mari CMR#: [id number] : 1970Acct:[id number] Age/Sex: 54 / MADM Date: 08/11/25 Loc: [facility] Attending Dr: Minor DUFFY Ordering Physician: Marlene Harrington MD Date of Service: 08/11/25 Procedure(s): XR hand RT min 3V Accession Number(s): [id number] cc: Silvia Fitzgerald MD; Marlene Harrington MD [...] Jadiel Ramirez MD 08/11/2025 03:20 PM EST Dictated By: Jadiel Ramirez MD Signed By: <Electronically signed by Jadiel Ramirez MD in OV> 08/11/25 1520 DD/ 1501 TD/TT: 08/11/25 1506 Top Collar Maker: [facility] External Provider IMG XR PROCEDURES Final Result * Creatinine, Serum (06/08/2025 1:18 PM EDT) Pathologist [facility] Creatinine, Serum 0.93 0.5 - 1.4 mg/dL [facility] Estimated Glomerular Filt Rate >60 [facility] Comment:Chronic Kidney Disea se: Estimated GFR < 60 mL/min/1.63f5Trsqmg Kidney Disease: Estimated GFR < 15 mL/min/1.73m2 06/08/2025 1:18 PM EDT 06/08/2025 4:28 PM EDT Generic External Data Provider LAB BLOOD ORDERAB LES Final Result Performing Organization Address [facility] Co de Phone Number [facility] [address] [place] [phone] * (ABNORMAL) Creatine Kinase, Total (06/08/2025 1:18 PM EDT) Pathologist [facility] Creatine Kinase Total 202(H) 38 - 174 U/L [facility] 06/08/2025 1:18 PM EDT 06/08/2025 4:28 PM EDT Generic External Data Provider LAB BLOOD ORDERAB LES Final Result Performing Organization Address [facility] Co de Phone Number [facility] [address] [place] [phone] * HIV AB/AG (03/12/2020 4:40 PM [...] of detection of this assay. The [facility] HIV Ag/Ab Combo assay result and supplemental assay results should be interpreted in conjunction with the patient's clinical presentation, history and other laboratory results. If the results are inconsistent with clinical evidence, additional testing is suggested to confirm the result. 03/12/2020 4:40 PM EDT us Santos Haley MD HISTORICAL/NON ORDERABLE LABS Fi nal Result [facility] [address] from Last 3 Months or Most Recently Relevant to Health Maintenance Insurance [address] [place], [place] [address] Care Teams Admissions Gate Attendant Relationship Specialty Start Date End Date Silvia Fitzgerald MD [address] [place] [phone] PCP - General Family Medicine 12/12/18
--- NOTE | 2025-09-14 08:15 | MHC.SHP ---
Pre-Procedural Eval Section A - 24 Hr Update-Section A only Date of Service: 09/14/25 The patient is an INPATIENT: No Changes since office visit: No Cold of Flu in the past 2 weeks, No New Medical Problems, No Changes in Medication and No Patient answered all questions The patient has been examined within 24 hours of the surgical procedure. The History & Physical has been completed within 30 days and I have reviewed it.: Yes Section B - Complete if H&P > 30 days Chief Complaint: Other specified disorders of bone, unspecified sit Allergies: Allergies Allergy/AdvReac Type Severity Reaction Status Date / Time No Known Allergies (No Known Allergy Verified 08/11/25 14:17 Allergies*) Plan Diagnosis/Plan: Unchanged I have reviewed the history and physical and performed a pertinent physical examination on my patient. No changes have occurred unless specified. Time Spent With Patient Time: Total time managing care of this patient today ____ minutes.
[2025-09-14 08:53] VITALS: BMI 31.7
[2025-09-14 09:23] VITALS: BP 117/73; PULSE 57; RESP 18; TEMP 36.8; O2SAT 95
--- NOTE | 2025-09-14 09:53 | W.PM.OPN ---
Operative Note Operative Note Date of Service: 09/14/25 Narrative: Operative Note Preop diagnosis: 1. Painful right thumb tip status osteomyelitis and debridement Postop diagnosis: same Procedure: 1. Right thumb partial removal of nail plate 2. Right thumb excision of soft tissue and bone from ulnar tip of distal phalanx Surgeon: Marlene Harrington MD Aoc Director Combat Plans Officer: None Anesthesia: digital block using 1% lidocaine with epinephrine Findings: The distal ulnar aspect of the nail bed was hardened or keratinized. This was an area that was tender. I excised this portion of the nail bed and sent it for histopathology. EBL: Less than 5 mL Tourniquet time: None Specimens: Right distal ulnar portion of the nail bed sent for histopathology Complications: None Disposition: Brought to recovery room in stable condition Plan: Follow-up in 2 weeks for wound check and suture removal between 2 and 3 weeks, and to check pathology Suture removal between 2 and 3 weeks postop Check pathology Indications: The patient is 54 years old, with pain in the tip of the right thumb. This thumb had osteomyelitis and underwent an I and D that went on to heal well, but he still had pain at the ulnar tip. Radiographs show a bony prominence, and on exam there appears to be some thickened tissue beneath the ulnar aspect of the nail tip . The risks and benefits of operative treatment including but not limited to risk of damage to blood vessels, nerves, tendons, infection, persistent pain, persistent symptoms, recurrence or possible need for additional surgery were discussed with the patient and the patient wishes to proceed with surgery. Procedure: Once consent was obtained a digital block was performed in the preop area using a combination of 1% lidocaine with epinephrine. The patient was then brought back to the operating suite and placed on the operative table in supine position. The right upper extremity was prepped and draped in a standard surgical fashion. Once assured that we had a good block, The distal 5-8mm of the nail plate was freed up using a [place] elevator. I then cut and remove the distal 5 mm or so of the nail plate using some small straight scissors. This then exposed the distal ulnar aspect of the nail bed where we found a soft tissue abnormality. The distal ulnar end of the sterile matrix consisted of an approximately 3 mm x 4 mm hard keratinized portion of the nail bed that was noted to be tender on exam in preop hold. I made a transversely oriented elliptical incision removing this aspect of the nail bed. This was done using a 15. Blade. This tissue was removed from the patient and placed on the back table to be sent for histopathology. I was down onto the distal ulnar aspect of the distal phalanx. I freed up the soft tissues from the distal 2-3 mm of the ulnar aspect of the distal phalanx and removed only about 2 mm or so from the ulnar aspect of the distal phalanx using a rongeur. Again he had some central loss of bone because of the osteomyelitis at the tip of the distal phalanx that resulted in an ulnar-sided slightly bony prominence. This was an area that was tender. I did not appreciate any foreign bodies in this wound. I did not see any other abnormalities. Once satisfied with soft tissue and bony excision the wound was copiously irrigated with normal saline and hemostasis was obtained with a brief period of local pressure. The skin edges were reapproximated to the distal ulnar nail bed with some 4.0 nylon suture material and a sterile dressing was applied. The patient appears to have tolerated the procedure well and with no complications. All digits were well vascularized at the conclusion of the case.
[2025-09-14 10:28] VITALS: BP 118/76; PULSE 50; RESP 16; O2SAT 96
== END 2025-09-14 10:40 | disposition home or self-care (01) ==
PROVIDERS: PCP Internal Medicine; Visit Provider Orthopaedic Surgery
PROC: (CPT 26236; principal; 2025-09-14 10:10)
DX: M89.8X9 Other specified disorders of bone, unspecified site (principal); M86.641 Other chronic osteomyelitis, right hand; M79.644 Pain in right finger(s); L85.8 Other specified epidermal thickening; B18.2 Chronic viral hepatitis C; I10 Essential (primary) hypertension; Z89.022 Acquired absence of left finger(s); F32.A Depression, unspecified; F41.9 Anxiety disorder, unspecified; F10.21 Alcohol dependence, in remission; F19.11 Other psychoactive substance abuse, in remission; Z98.890 Other specified postprocedural states; F17.210 Nicotine dependence, cigarettes, uncomplicated; Z56.0 Unemployment, unspecified
CPT/HCPCS: 26236; 26115; 11730; 88307; 88311; J0165; J2003

== ENCOUNTER → 2025-09-14 07:57 | Outpatient (BNV) | payer OTHER, SELFPAY | PROVIDERS: PCP Internal Medicine; Visit Provider Orthopaedic Surgery | DX: M86.141 Other acute osteomyelitis, right hand (principal); L60.8 Other nail disorders | CPT/HCPCS: 11750; 26236 ==